=== PATIENT | female | born 1980 | race Caucasian/White ===

== ENCOUNTER 2018-02-11 00:49 | Emergency (ER) | payer BC, SELFPAY ==
[2018-02-11 00:51] VITALS: BP 124/88; PULSE 61; RESP 18; TEMP 36.6; O2SAT 98; BMI 23.8
--- NOTE | 2018-02-11 01:08 | EKG12_ITS ---
Test Reason : CP Blood Pressure : / mmHG Vent. Rate : 058 BPM Atrial Rate : 058 BPM P-R Int : 178 ms QRS Dur : 082 ms QT Int : 416 ms P-R-T Axes : 035 073 059 degrees QTc Int : 408 ms Sinus bradycardia Otherwise normal ECG Confirmed by JOHNNA OSORIO ([id number]), photograph editor GERRI MEJIA ([id number]) on 02/14/2018 10:19:21 AM Referred By: MORENA Confirmed By:JOHNNA OSORIO
--- NOTE | 2018-02-11 01:08 | RAD_ITS ---
STUDY: X-RAY CHEST REASON FOR EXAM: Female, 37 years old. Chest pain radiating to the back. Palpitations. TECHNIQUE: Single AP portable view of the chest. COMPARISON: 05/22/2015. FINDINGS: The lungs are clear and expanded. There is no demonstrated pleural abnormality. Normal size heart. Normal mediastinum and eloise. Normal visualized pulmonary arteries. Normal visualized aortic arch and descending thoracic aorta. Normal visualized thoracic spine. Normal visualized ribs, clavicles, and shoulders. There is no demonstrated abnormality of the visualized soft tissue structures of the upper abdomen. RAD/Chest 1 View (Portable) IMPRESSION: No active pulmonary disease. Electronically Signed: Chon Cote MD at 1:43 EDT Tel , Service support ,
[2018-02-11] MEDS: Aspirin 81 MG TAB.CHEW 324 MG PO (01:13)
[2018-02-11 01:32] LABS: Absolute Lymphocyte Count 3.43 X10^3/ul (0.83-4.51); Absolute Neutrophil Count 6.5 X10^3/uL (2.0-7.7); Basophil# 0.02 X10^3/uL; Basophil% 0.2 % (0-1); Eosinophil# 0.17 X10^3/uL; Eosinophils% 1.6 % (0-5); Hematocrit 40.1 % (37-47); Hemoglobin 13.4 g/dl (12.0-15.0); Lymphocyte # 3.43 X10^3/ul (4.0); Lymphocyte % 31.6 % (19-41); Mean Corp Hgb Conc 33.4 g/gl (32-36); Mean Corpuscular Hgb 28.6 pg (27.0-32.0); Mean Corpuscular Volume 85.5 fL (81-99); Mean Platelet Vol. 9.4 fl (6.2-12.0); Monocyte# 0.76 X10^3/uL; Neutrophil # 6.46 X10^3/uL (2.7-7.7); Neutrophil % 59.4 % (47-70); Platelet Count 434 K/mm3 (150-450); RBC Distribution Width CV 12.5 % (11.6-14.6); RBC Distribution Width SD 38.5 fl (35.1-43.9); Red Blood Count 4.69 M/mm3 (4.2-5.4); White Blood Count 10.9 K/mm3 (4.4-11.0)
[2018-02-11 01:36] LABS: POSITIVE COUNT NO; POSITIVE DIFFERENTIAL NO; POSITIVE MORPHOLOGY NO
[2018-02-11 01:42] LABS: AST(SGOT) 15 U/L (15-37); Alanine Aminotransfer ALT/SGPT 18 U/L (13-56); Albumin, Serum 3.4 g/dL (3.2-5.0); Alkaline Phosphatase 56 U/L (45-117); Anion Gap 5 (5-15); BUN 5 mg/dL (7-18); BUN/Creat Ratio 7.3 RATIO (10-20); Bilirubin, Direct < 0.05 mg/dL (0.00-0.30); Calcium,Total 8.2 mg/dL (8.5-10.1); Chloride 106 mmol/L (98-107); Creatinine, Serum 0.69 mg/dL (0.55-1.02); EST Glomerular Filtration Rate 102 mL/min (>60); Est Glom Filt Rate - Afr Amer 124 mL/min (>60); Estimated Creatinine Clearance 97.33 ml/min; Globulin 3.6 g/dL (2.2-4.2); Glucose 88 mg/dL (74-106); Lipase 178 U/L (73-393); Potassium 3.4 mmol/L (3.5-5.1); Sodium Level 139 mmol/L (136-145)
[2018-02-11 01:53] LABS: D-Dimer Quantitative (DVT/PE) 0.38 FEU/ug/m (0.27-0.49)
--- NOTE | 2018-02-11 02:03 | ED.VISSUMM ---
- ER Visit Summary Date of Service: 02/11/18 Chief Complaint: Right-sided chest pain History of Present Illness: The patient is a 37 F presenting with right-sided chest pain which began yesterday. She states the pain waxes and wanes but has been there consistently for the past day. She states it is worse with deep breathing and movements. She denies shortness of breath or cough. Denies fever. She has history of endometriosis, migraine, anxiety. She is not a smoker. No PE/DVT risk factors. No coronary artery disease risk factors. Physical Examination: Vitals are stable. Patient is afebrile. Alert no acute distress. HEENT exam is unremarkable. Neck is supple. Lungs are clear and equal bilaterally. Heart is regular rate and rhythm. Abdomen is soft right upper quadrant tenderness with no rebound or guarding Extremities are unremarkable. Skin is warm and dry. No focal neurologic deficit. Remainder of exam is unremarkable. Emergency Department Course and Treatment: Patient was given aspirin on arrival. EKG is sinus bradycardia rate of 58 with no acute ischemic changes. Chest x-ray shows no acute process. CBC, chemistries unremarkable. Liver lipase are normal. Troponin is negative. D-dimer negative. She was given toradol with improvement. She is given prescription for flexeril. Advised to follow-up with primary care physician. Advised return to ED if worsening complaints. Disposition: Discharge home Impression: Atypical chest pain This note was generated with [employer] dictation software. It may contain incorrect words, spelling, and punctuation that were not noted in review of the chart prior to signing ED Disposition - Plan for ED Patient: Chief Complaint: Chest Pain Instructions: ED Chest Pain Atypical Unkn Cause Prescriptions: Cyclobenzaprine [Flexeril] 10 mg PO TID PRN #20 tablet PRN Reason: Muscle Spasm Referrals: Bianca Dooley MD [Primary Care Provider] -
[2018-02-11] MEDS: Ketorolac 30 MG/ML Syringe IV (02:16)
--- NOTE | 2018-02-11 02:36 | ED.DEP ---
ED Disposition - Plan for ED Patient: Chief Complaint: Chest Pain Instructions: ED Chest Pain Atypical Unkn Cause Prescriptions: Cyclobenzaprine [Flexeril] 10 mg PO TID PRN #20 tablet PRN Reason: Muscle Spasm Referrals: Bianca Dooley MD [Primary Care Provider] -
[2018-02-11 02:43] VITALS: BP 107/75; PULSE 71; RESP 16; O2SAT 98
== END 2018-02-11 02:44 | disposition home or self-care (01) ==
PROVIDERS: Emergency Provider Emergency Medicine; Family Provider Internal Medicine; PCP Internal Medicine
DX: R07.89 Other chest pain (principal); R00.1 Bradycardia, unspecified; G43.909 Migraine, unspecified, not intractable, without status migrainosus; F41.9 Anxiety disorder, unspecified; Z79.899 Other long term (current) drug therapy
CPT/HCPCS: 71045; 80048; 80076; 83690; 84484; 85025; 85379; 93005; 96374; 99285; A4216

== ENCOUNTER 2018-02-15 14:36 | Emergency (ER) | payer BC, SELFPAY ==
[2018-02-15 14:36] VITALS: BP 123/82; PULSE 63; RESP 16; TEMP 36.6; O2SAT 98; BMI 23.0
[2018-02-15 16:14] VITALS: PULSE 61; O2SAT 98
--- NOTE | 2018-02-15 16:33 | ED.DCSUM_ITS ---
- ER Visit Summary Date of Service: 02/15/18 Chief Complaint: Back pain History of Present Illness: The patient is a 37 F with back pain for 1 week. 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 She had a cardiac workup about a week ago for this. No fever or chills. The pain does radiate into the chest. No shortness of breath. No PE risk factors. Physical Examination: She does appear in some distress Moist mucous membranes, no obvious facial deformity No C-spine tenderness supple neck. Regular rate and rhythm without any obvious murmurs Clear lungs bilaterally speaking in full sentences without any obvious respiratory distress She has tenderness over the trapezius and paraspinal right-sided thoracic muscles. She does have objective trigger points in that region and her muscles are quite tight. Abdomen soft and nontender no guarding or rebound Moves all extremities without any difficulty or pain. Skin does not show any obvious rashes or lesions, no trauma. Alert oriented ?3 with no gross focal deficit Emergency Department Course and Treatment: She has mechanical back pain it is in the muscles and quite easily reproducible. I will give her trigger point injections. She will be discharged with muscle relaxants and analgesics. Disposition: Discharge stable condition Impression: Thoracic muscle strain This note was generated with [employer] dictation software. It may contain incorrect words, spelling, and punctuation that were not noted in review of the chart prior to signing ED Disposition - Plan for ED Patient: Disposition: Home or Assisted Living Chief Complaint: Chest Other Instructions: ED Sprain Thoracic Spine Prescriptions: Oxycodone HCl/Acetaminophen [Percocet 5/325] 1 tab PO Q6H PRN PRN 5 Days #12 tab PRN Reason: Pain Diazepam [Valium] 5 mg PO BID 5 Days #10 tab Referrals: Bianca Dooley MD [Primary Care Provider] -
== END 2018-02-15 16:59 | disposition home or self-care (01) ==
PROVIDERS: Emergency Provider Emergency Medicine; Family Provider Internal Medicine; PCP Internal Medicine
DX: S29.019A Strain of muscle and tendon of unspecified wall of thorax, initial encounter (principal); X50.9XXA Other and unspecified overexertion or strenuous movements or postures, initial encounter; Y93.F2 Activity, caregiving, lifting; Y92.238 Other place in hospital as the place of occurrence of the external cause; Y99.9 Unspecified external cause status
CPT/HCPCS: 20553; 99283

== ENCOUNTER 2018-04-27 14:31 | Emergency (ER) | payer BC, SELFPAY ==
[2018-04-27 14:32] VITALS: BP 128/83; PULSE 68; RESP 16; TEMP 36.6; O2SAT 99; BMI 22.3
--- NOTE | 2018-04-27 15:10 | EKG12_ITS ---
Test Reason : VISION CHANGES Blood Pressure : / mmHG Vent. Rate : 072 BPM Atrial Rate : 072 BPM P-R Int : 212 ms QRS Dur : 088 ms QT Int : 424 ms P-R-T Axes : 067 086 067 degrees QTc Int : 464 ms Sinus rhythm with 1st degree A-V block Otherwise normal ECG Confirmed by JOHNNA OSORIO ([id number]), web editor MARIE LIVE ([id number]) on 05/03/2018 1:40:58 PM Referred By: CELESTINO Confirmed By:JOHNNA OSORIO
--- NOTE | 2018-04-27 15:10 | NURSING ---
DR MORRIS PAGED
--- NOTE | 2018-04-27 15:18 | ED.VISSUMM ---
- ER Visit Summary Date of Service: 04/27/18 Chief Complaint: Headache History of Present Illness: The patient is a 37 F patient presents with increasing right frontal headache starting at 1 PM today while working upstairs. Complains of flashing lights, aura sensations. Blurry vision. No fevers. Patient states history of migraines, however's states never had vision issues only phonophobia. Over the past 4 months has noted vision changes with aura. She reports sensations left upper quadrant of aura with blurry vision which would resolve with her headaches. 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 There has been no head injuries. 2 days ago reports no headache however which she explains right hemianopsia with blurriness vision right quadrants of both eyes lasting 2 hours, with those symptoms she had expressive dysphasia with difficulty getting words out lasting approximately 1 hour. Reports symptoms completely resolved. Today at work had her typical right frontal headache with oral, brief expressive dysphasia. Currently complains of photophobia. No nausea or vomiting. She is typical migraine symptoms will resolve with Fioricet. Patient spoke with nurse practitioner who works with neurology team about symptoms yesterday, was made an appointment for May 11 of this month. Was told if symptoms return needs to come down to the emergency department. Denies any family history of clotting disorders. Physical Examination: General: Alert and oriented ?3, no acute distress HEENT: Normocephalic, atraumatic. Moist mucosa membranes. Pupils equal and reactive to light, extra ocular muscles intact. Visual field examination, left eye had blurriness in the left upper and left lower quadrants. Right eye with blurry vision right upper quadrants. Denies loss of vision. Neck: supple, nontender. No meningismus. Cardiovascular: Regular rate and rhythm, no murmurs Respiratory: Normal breath sounds, symmetric, no distress Abdomen: Soft, nontender, nondistended Extremities: Nontender, no edema, pulses intact ?4. Neurological: [facility] would be a one do her visual field deficits. Test Results: White count 12.8. He was 12.8. Creatinine 0.62. Troponin negative. MRI brain with and without contrast pansinusitis, no intracranial process. Emergency Department Course and Treatment: Patient reports acute onset of recurrent symptoms. This time started at 1 PM. Differentials include complex migraine, versus TIA symptoms. Recurrent symptoms and age, I did speak with neurologist Dr. Solano at 1510, states if able to go ahead and obtain MRI of the brain with and without contrast in the emergency department. If negative, we will plan on placing her on Topamax 25 mg twice daily for concerns of complex migraines with outpatient follow-up. Discussed with patient and radiology department,. Patient was treated with Reglan and Benadryl, there is moderate improvement symptoms. Still had headache symptoms. MRI results eventually returned turn, noted pansinusitis. She does complain of sinus symptoms for the past week, however these headaches are typical of her migraines, or other symptoms were new. Sinusitis is not causing her symptoms. More concerns of complex migraines. She appears had improvement of Fioricet which was given along with started on Topamax twice a day per recommendations of neurology. She will monitor symptoms and follow-up as an outpatient. All questions were answered. Treatment Plan: [] Disposition: Discharge Impression: 1. Complex migraine This note was generated with [employer] dictation software. It may contain incorrect words, spelling, and punctuation that were not noted in review of the chart prior to signing ED Disposition - Plan for ED Patient: Disposition: Home or Assisted Living Chief Complaint: Headache Diagnosis: Complex migraine Instructions: ED Headache Migraine Prescriptions: Acetaminophen/Butalbital/Caffe [Fioricet] 1 tablet PO Q4H PRN PRN #20 tablet PRN Reason: Headache Topiramate [Topamax] 25 mg PO BID #60 tablet Referrals: NOT,DEFINED [NON-STAFF] - Pete Solano MD [STAFF PHYSICIAN] - Keep Diego appointment
[2018-04-27 15:42] LABS: Absolute Lymphocyte Count 2.53 X10^3/ul (0.83-4.51); Absolute Neutrophil Count 9.3 X10^3/uL (2.0-7.7); Basophil# 0.01 X10^3/uL; Basophil% 0.1 % (0-1); Eosinophil# 0.12 X10^3/uL; Eosinophils% 0.9 % (0-5); Hematocrit 38.8 % (37-47); Hemoglobin 12.8 g/dl (12.0-15.0); Lymphocyte # 2.53 X10^3/ul (4.0); Lymphocyte % 19.8 % (19-41); Mean Corpuscular Hgb 28.3 pg (27.0-32.0); Mean Corpuscular Volume 85.7 fL (81-99); Mean Platelet Vol. 9.3 fl (6.2-12.0); Monocyte# 0.75 X10^3/uL; Monocyte% 5.9 % (0-10); Neutrophil # 9.32 X10^3/uL (2.7-7.7); Neutrophil % 73.1 % (47-70); Platelet Count 436 K/mm3 (150-450); RBC Distribution Width CV 12.6 % (11.6-14.6); RBC Distribution Width SD 39.6 fl (35.1-43.9); Red Blood Count 4.53 M/mm3 (4.2-5.4); White Blood Count 12.8 K/mm3 (4.4-11.0)
[2018-04-27 15:58] LABS: Prothrombin Time (Protime)PT. 13.4 SECONDS (11.7-14.9)
[2018-04-27 15:59] LABS: Partial Thromboplast Time 32.1 Seconds (24.1-36.2)
[2018-04-27 16:02] LABS: Anion Gap 7 (5-15); BUN 3 mg/dL (7-18); BUN/Creat Ratio 4.8 RATIO (10-20); Calcium,Total 8.7 mg/dL (8.5-10.1); Chloride 104 mmol/L (98-107); Creatinine, Serum 0.62 mg/dL (0.55-1.02); EST Glomerular Filtration Rate 116 mL/min (>60); Est Glom Filt Rate - Afr Amer 140 mL/min (>60); Estimated Creatinine Clearance 108.32 ml/min; Glucose 89 mg/dL (74-106); Potassium 3.4 mmol/L (3.5-5.1); Sodium Level 140 mmol/L (136-145)
[2018-04-27 16:09] LABS: POSITIVE COUNT NO; POSITIVE DIFFERENTIAL NO
[2018-04-27] MEDS: DiphenhydrAMINE 50 MG/ML Syringe 25 MG IV (16:23)
[2018-04-27] MEDS: 0.9% Normal Saline 1,000 ML 999 ML IV (16:23)
[2018-04-27] MEDS: Metoclopramide 10 MG/2 ML Vial IV (16:24)
[2018-04-27 16:28] VITALS: BP 116/80; PULSE 69; RESP 12; O2SAT 100
[2018-04-27 16:30] LABS: POSITIVE MORPHOLOGY YES
[2018-04-27 17:16] VITALS: BP 120/71; PULSE 61; RESP 15; O2SAT 98
[2018-04-27 18:30] VITALS: BP 124/77; PULSE 70; RESP 16; O2SAT 96
[2018-04-27 19:22] VITALS: PULSE 77; RESP 16; O2SAT 98
[2018-04-27] MEDS: Topiramate 25 MG Tablet PO (19:34)
[2018-04-27] MEDS: Acetaminophen/Butalbital/Caffe 1 Tablet PO (19:35)
[2018-04-27 19:37] VITALS: BP 107/73; PULSE 76; PULSE 77; RESP 14; O2SAT 99
[2018-04-28 14:33] LABS: Pathologist Review Reviewed
== END 2018-04-27 19:42 | disposition home or self-care (01) ==
PROVIDERS: Emergency Provider Emergency Medicine
DX: G43.109 Migraine with aura, not intractable, without status migrainosus (principal); J32.4 Chronic pansinusitis; R47.02 Dysphasia; Z79.899 Other long term (current) drug therapy
CPT/HCPCS: 70553; 80048; 84484; 85025; 85610; 85730; 93005; 96361; 96374; 96375; 99285; A9585; J7030; A4216

== ENCOUNTER → 2018-10-20 13:33 | Outpatient (CLI) | payer OTHER, SELFPAY ==
[2018-10-26 12:24] LABS: HPV Reflexed? NOT INDICATED
== END ==
PROVIDERS: Visit Provider Obstetrics & Gynecology
DX: Z12.4 Encounter for screening for malignant neoplasm of cervix (principal)
CPT/HCPCS: 88175; G0145

== ENCOUNTER → 2018-10-31 14:09 | Outpatient (CLI) | payer OTHER, SELFPAY ==
[2018-10-31 15:29] LABS: T4 Free Direct 0.81 ng/dL (0.76-1.46); Thyroid Stim Hormone (TSH) 1.66 uIU/mL (0.358-3.74)
== END ==
PROVIDERS: Family Provider Family Medicine; PCP Family Medicine; Referring Provider Family Medicine; Visit Provider Family Medicine
DX: E03.9 Hypothyroidism, unspecified (principal); Z13.21 Encounter for screening for nutritional disorder
CPT/HCPCS: 36415; 82306; 84439; 84443

== ENCOUNTER → 2019-01-27 15:57 | Outpatient (CLI) | payer OTHER, SELFPAY ==
[2019-01-27 07:56] LABS: Hemoglobin A1c 4.7 % (4.2-6.3)
[2019-01-27 08:47] LABS: Insulin 13.1 mU/L (2.6-37.6); Progesterone Level 0.35 ng/mL (See Comment); Vitamin D,25 Hydroxy 49.8 ng/mL (29.95-100.01)
[2019-01-27 11:42] LABS: Estradiol 701.3 pg/mL; Free T3 2.8 pg/mL (2.18-3.98); Glucose 93 mg/dL (74-106); T4 Free Direct 0.92 ng/dL (0.76-1.46); Thyroid Stim Hormone (TSH) 1.79 uIU/mL (0.358-3.74)
--- NOTE | 2019-01-27 15:59 | US_ITS ---
STUDY: ULTRASOUND OF THE FEMALE PELVIS - COMPLETE REASON FOR EXAM: Female, 38 years old. Right pelvic pain LMP: TECHNIQUE: Transabdominal and transvaginal TECHNICAL QUALITY: Adequate. COMPARISON: None FINDINGS: The uterus is anteverted and is in a midline position. The uterus measures 9.4 x 4.2 cm. Normal uterine cervix. The endometrium measures 5.4 mm in thickness, and is hyperechoic. There is no demonstrated endometrial mass. There is a fibroid measuring 1.2 x 1.1 x 0.9 cm.. I.U.D. - there is an IUD noted within the endometrial canal at the uterine fundus. The right ovary is visualized. The right ovary measures 5 x 4.6 x 3.2 cm. There are multiple ovarian cysts the largest is septated measuring measuring 3.5 x 3.3 x 3.6 cm. . There is normal arterial and normal venous vascularity. The left ovary is nonvisualized status post hysterectomy. There is a small amount of free fluid in the cul-de-sac. US/Pelvic (Non ) IMPRESSION: Multiple small right ovarian cysts the largest of which is septated measuring 3.5 x 3.3 x 3.6 cm with small amount of fluid in the cul-de-sac possibly due to ovulation Small intrauterine fibroid Electronically Signed: Anand Rome MD at 16:27 EDT , Service support ,
--- NOTE | 2019-01-27 16:13 | US_ITS ---
STUDY: ULTRASOUND OF THE FEMALE PELVIS - COMPLETE REASON FOR EXAM: Female, 38 years old. Right pelvic pain LMP: TECHNIQUE: Transabdominal and transvaginal TECHNICAL QUALITY: Adequate. COMPARISON: None FINDINGS: The uterus is anteverted and is in a midline position. The uterus measures 9.4 x 4.2 cm. Normal uterine cervix. The endometrium measures 5.4 mm in thickness, and is hyperechoic. There is no demonstrated endometrial mass. There is a fibroid measuring 1.2 x 1.1 x 0.9 cm.. I.U.D. - there is an IUD noted within the endometrial canal at the uterine fundus. The right ovary is visualized. The right ovary measures 5 x 4.6 x 3.2 cm. There are multiple ovarian cysts the largest is septated measuring measuring 3.5 x 3.3 x 3.6 cm. . There is normal arterial and normal venous vascularity. The left ovary is nonvisualized status post hysterectomy. There is a small amount of free fluid in the cul-de-sac. US/Transvaginal Non- IMPRESSION: Multiple small right ovarian cysts the largest of which is septated measuring 3.5 x 3.3 x 3.6 cm with small amount of fluid in the cul-de-sac possibly due to ovulation Small intrauterine fibroid Electronically Signed: Anand Rome MD at 16:27 EDT , Service support ,
[2019-01-28 05:06] LABS: DHEA Sulfate 63.5 ug/dL (57.3-279.2); Thyroid Peroxidase AB 18 IU/mL (0-34)
[2019-01-29 13:30] LABS: Sex Hormone-binding Globulin 149.2 nmol/L (24.6-122.0)
== END ==
PROVIDERS: Family Provider Family Medicine; PCP Family Medicine; Referring Provider Obstetrics & Gynecology; Visit Provider Obstetrics & Gynecology
DX: R10.2 Pelvic and perineal pain (principal); E55.9 Vitamin D deficiency, unspecified
CPT/HCPCS: 36415; 76830; 76856; 82306; 82533; 82627; 82670; 82947; 83036; 83525; 84144; 84270; 84403; 84439; 84443; 84481; 86376; 82626

== ENCOUNTER → 2019-02-09 12:52 | Outpatient (CLI) | payer OTHER, SELFPAY ==
[2019-02-09 13:53] LABS: AST(SGOT) 17 U/L (15-37); Alanine Aminotransfer ALT/SGPT 21 U/L (13-56); Albumin, Serum 3.8 g/dL (3.2-5.0); Alkaline Phosphatase 72 U/L (45-117); Anion Gap 4 (5-15); BUN 5 mg/dL (7-18); BUN/Creat Ratio 7.9 RATIO (10-20); Calcium,Total 9.1 mg/dL (8.5-10.1); Chloride 105 mmol/L (98-107); Creatinine, Serum 0.64 mg/dL (0.55-1.02); EST Glomerular Filtration Rate 112 mL/min (>60); Est Glom Filt Rate - Afr Amer 135 mL/min (>60); Estradiol 112.5 pg/mL; Globulin 3.8 g/dL (2.2-4.2); Glucose 85 mg/dL (74-106); Protein, Total 7.6 g/dL (6.4-8.2); Sodium Level 138 mmol/L (136-145)
--- NOTE | 2019-02-09 13:56 | CT_ITS ---
STUDY: CT ABDOMEN AND PELVIS WITH CONTRAST REASON FOR EXAM: Female, 38 years old. Right ovarian cyst. RADIATION DOSAGE (If Supplied By Facility): CTDIvol = ( 9.75 ) mGy, DLP = ( 351.51 ) mGycm TECHNIQUE: Transaxial images were obtained from the dome of the diaphragm to the symphysis pubis without oral contrast. 75 IV Isovue 370 was administered. Sagittal and coronal images were reconstructed. Individualized dose optimization techniques were used for this CT. COMPARISON: Ultrasound January 27, 2019. CT February 13, 2016. FINDINGS: The visualized lung bases are unremarkable. The visualized portions of the heart are within normal limits. There is hepatomegaly with diffuse hepatic enlargement. There are hypodensities compatible with small cysts in the liver . Normal gallbladder and extrahepatic biliary system. Normal spleen. Normal pancreas. Normal bilateral adrenal glands. Normal right kidney. Normal left kidney. Normal visualized stomach. Normal small intestine. Normal colon. The appendix is visualized and appears normal. Normal abdominal aorta. Normal inferior vena cava. Normal retroperitoneum. Normal urinary bladder. There is IUD in the uterus. There is 3.5 cm right adnexal cyst. There is a small umbilical hernia containing fat. Normal osseous structures. CT/Abdomen/Pelvis WITH Contrast IMPRESSION: Right adnexal cyst. Hepatomegaly with small cysts Electronically Signed: Alexey Greene MD at 8:26 EDT , Service support ,
== END ==
PROVIDERS: Family Provider Family Medicine; PCP Family Medicine; Referring Provider Obstetrics & Gynecology; Visit Provider Obstetrics & Gynecology
DX: N83.201 Unspecified ovarian cyst, right side (principal); N93.8 Other specified abnormal uterine and vaginal bleeding
CPT/HCPCS: 74177; 80053; 82670; Q9967

== ENCOUNTER → 2019-02-14 11:49 | Outpatient (CLI) | payer OTHER, SELFPAY ==
[2019-02-14 14:15] LABS: Ferritin 34 ng/mL (8-252); GGTP 26 U/L (5-55); Iron 87 ug/dL (50-170); LDH 221 U/L (84-246)
[2019-02-14 15:23] LABS: Erythrocyte Sedimentation Rate 6 mm/hr (0-20)
[2019-02-14 15:25] LABS: Absolute Lymphocyte Count 2.22 X10^3/ul (0.83-4.51); Absolute Neutrophil Count 4.9 X10^3/uL (2.0-7.7); Basophil# 0.01 X10^3/uL; Basophil% 0.1 % (0-1); Eosinophil# 0.07 X10^3/uL; Eosinophils% 0.9 % (0-5); Hematocrit 39.4 % (37-47); Hemoglobin 12.9 g/dl (12.0-15.0); Lymphocyte # 2.22 X10^3/ul (4.0); Lymphocyte % 28.7 % (19-41); Mean Corp Hgb Conc 32.7 g/gl (32-36); Mean Corpuscular Hgb 28.2 pg (27.0-32.0); Mean Corpuscular Volume 86.2 fL (81-99); Monocyte# 0.51 X10^3/uL; Monocyte% 6.6 % (0-10); Neutrophil # 4.91 X10^3/uL (2.7-7.7); Neutrophil % 63.6 % (47-70); POSITIVE COUNT NO; POSITIVE DIFFERENTIAL NO; POSITIVE MORPHOLOGY NO; Platelet Count 427 K/mm3 (150-450); RBC Distribution Width CV 12.4 % (11.6-14.6); RBC Distribution Width SD 39.3 fl (35.1-43.9); Red Blood Count 4.57 M/mm3 (4.2-5.4); White Blood Count 7.7 K/mm3 (4.4-11.0)
== END ==
PROVIDERS: Family Provider Family Medicine; PCP Family Medicine; Visit Provider Family Medicine
DX: R16.0 Hepatomegaly, not elsewhere classified (principal)
CPT/HCPCS: 36415; 82728; 82977; 83540; 83615; 85025; 85652

== ENCOUNTER → 2019-02-18 09:54 | Outpatient (CLI) | payer OTHER, SELFPAY ==
--- NOTE | 2019-02-18 09:56 | BI_ITS ---
MAMMOGRAPHY - BILATERAL SCREENING REASON FOR EXAM: Female, 38 years old. Routine annual screening examination. PERTINENT HISTORY: Grandmother with breast cancer. Aunt with breast cancer. Bilateral breast reduction surgery. TECHNIQUE: Digital bilateral breast micha (3D mammographic acquisition) in the CC and MLO projections. 2-D mediolateral oblique (MLO) and craniocaudad (CC) views of both breasts were obtained. CAD: Full Field Digital Mammography with Computer Added Detection was performed. COMPARISON: Comparison is made with prior study dated December 16, 2016 and March 16, 2016. FINDINGS: Breast Composition: The breasts are extremely dense, which lowers the sensitivity of mammography. There are no dominant masses or suspicious calcifications. No other significant abnormalities are identified. There has been no significant change since the prior study. BI/SCREEN MAMM (CAD) W/MICHA BILAT IMPRESSION: Stable bilateral screening mammogram. Yearly follow-up mammogram recommended. (A) ASSESSMENT CATEGORY: BIRADS Category 1: Negative. A letter regarding these results will be sent to the patient by the facility within 30 days. Approximately 10% of breast cancers are not detected by mammography. A normal mammogram should not delay biopsy of a clinically suspicious abnormality. [id number] Electronically Signed: Bakari Gongora, at 12:45 EDT , Service support ,
== END ==
PROVIDERS: Family Provider Family Medicine; PCP Family Medicine; Referring Provider Obstetrics & Gynecology; Visit Provider Obstetrics & Gynecology
DX: Z12.31 Encounter for screening mammogram for malignant neoplasm of breast (principal)
CPT/HCPCS: 77063; 77067

== ENCOUNTER 2019-03-27 08:58 | Day surgery (SDC) | payer OTHER, SELFPAY ==
[2019-03-06 08:44] VITALS: BMI 22.3
--- NOTE | 2019-03-07 01:56 | HP_ITS ---
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 Is patient in pain?: No Allergies tramadol [From Ultram] Adverse Reaction (Intermediate, Verified 03/06/19 08:43) hallucinations hydrocodone bitartrate [From Vicodin] Adverse Reaction (Verified 03/06/19 08:43) Vomiting Medications alprazolam 0.25 mg tablet 0.25 mg PO BID-TID PRN 04/22/18 [History Confirmed 03/06/19] lactobacillus combination no.4 3 billion cell capsule 3,000 mmu cells PO DAILY 04/22/18 [History Confirmed 03/06/19] multivitamin capsule 1 cap PO DAILY 04/22/18 [History Confirmed 03/06/19] Acetaminophen/Butalbital/Caffe [Fioricet] 1 tab PO Q4H PRN PRN #20 tab 04/27/18 [Rx Confirmed 03/06/19] Topiramate [Topamax] 25 mg PO BID #60 tab 04/27/18 [Rx Confirmed 03/06/19] Is last menstrual period known: No Post menopausal: No Patient : No PFSH Medical History Back pain (Acute) Chest pain (Acute) Fatigue (Acute) Hay fever (Acute) Migraines (Acute) Peritonitis (Acute) Thyroid disease (Acute) Surgical History (Updated 03/06/19 @ 08:40 by Shannon Saba) H/O oophorectomy (Acute) History of bilateral breast reduction surgery (Acute ~2017) History of colonoscopy (Acute ~2008) History of dilation and curettage (Acute ~2014) History of loop electrical excision procedure (LEEP) (Acute ~2013) History of ovarian cystectomy (Acute) Family History (Updated 03/06/19 @ 08:41 by Shannon Saba) Daughter Asthma Father Hypertension Mother Hypertension Thyroid disorder Diabetes Grandmother Breast cancer Cancer omentum Osteoporosis Social History (Updated 03/07/19 @ 13:56 by Vasu Peralta MD) Smoking Status: Never smoker HPI HPI HPI: CHARLENE CARLIN, is a 38 F who presents to the office today for HPI HPI Surgical H&P: Yes HPI: CHARLENE CARLIN, is a 38 F who presents to the office today for consult for appendectomy. Patient is having right lower quadrant pain. She is going for right nephrectomy by Dr. Gupta as well as hysterectomy. She is unsure if her appendix is also causing issues at the time so they would like an appendectomy done at the same time. ROS General General: No weight change, appetite, fatigue, colon cancer, breast cancer or weakness HEENT HEENT: No difficulty swallowing, eye injury, eye surgery, swollen glands or hoarseness Endo Endocrine: Yes thyroid disease; no diabetes mellitus, thyroid cancer, Hair loss, heat intolerance or cold intolerance Cardio Cardiovascular: No murmur, pacemaker, heart disease, atrial fibrillation, high blood pressure, heart attack, heart stent, palpitations, shortness of breat with exertion or chest pain Psych Psychiatric: Yes anxiety; no depression or hearing voices Resp Respiratory: No shortness of breath, No sleep apnea, No cough, No COPD, No asthma, No emphysema, No wheezing Gastro Gastrointestinal: Yes abdominal pain, Yes nausea or vomiting, Yes diarrhea, Yes constipation, No blood in stool, No acid reflux, Yes hemorrhoids, Yes ulcers, No gallbladder problem, No black,tarry stools Byron Hematologic: No blood thinners, No blood disorders, No bleeding, No anemia, No blood clots Neuro Neurologic: No weakness Exam Const General: cooperative Orientation: alert, oriented x3 Resp Effort & Inspection: normal respiratory effort Auscultation: clear to auscultation bilaterally Cardio Rate: regular rate Rhythm: regular rhythm Heart Sounds: no murmurs GI Inspection: non-distended Palpation: soft, nontender Assessment & Plan Problems 1. RLQ abdominal pain R10.31 Plan The patient is having right lower quadrant pain. I was requested to see the patient for appendectomy at the same time as hysterectomy right oophorectomy. The patient is having chronic right lower quadrant pain and they would like appendicitis to be removed from his differential. I explained laparoscopic appendectomy to the patient in detail. I explained the risks including but not limited to bleeding, infection, injury to surrounding organs such as the bowels. Patient understands risks and would like to proceed. Vasu Peralta MD Pager: [facility] [address] [place] [address], [address] [place] [address] Office: Coding Level of Care Code Off vis,new,level 3 Diagnoses RLQ abdominal pain R10.31 03/07/19 1356 <Electronically signed by Vasu kenney MD> Date _ Vasu Peralta MD I have re-examined the patient. There are no clinical changes since date of exam.
--- NOTE | 2019-03-26 10:44 | PCM.HP.BLA ---
History and Physical Date of Admission: 03/27/19 Surgical History and Physical Michelle Garcai, a 38 year old female 2 0 0 0 3, presents for RAVH/RSO per ELIZABETH; Robotic appendectomy per Fabian on March 27, 2019. -- Chronic RLQ Pain; Severe Endometriosis -- She has been having pain on the Rt side, intermittent N/v, and pain with IC that has been worsening. Known severe endometriosis. Rt sided pain, not feeling well which began years ago. Michelle claims it started gradual. It occurs all the time. It is located in the Rt sided pain. Michelle characterizes it to be to the back. Michelle characterizes the quality ache, pulling, sharp with IC. Severity is worsening; Associated signs and symptoms are pain with IC. Additional comments are: Spotting with IC. Additional comments are: has Mirena in place; similar pain on left before ovary was removed years ago; done having children; endometriosis dx by Laparoscopy in 2014. Additional comments are: recent CT [place]. MEDICATIONS HISTORY: Current medications prescribed by our practice are: 1. muhmmjqbeg-osszdikajzjbe-zldhxysr 50 mg-325 mg-40 mg tablet, 1 po q 4 hours PRN 2. Valtrex 500 mg tablet, 3 PO PRN 3. Xanax 0.5 mg tablet, One pill by mouth three times a day PRN 4. Zofran 4 mg tablet, one tab PO every 6 hours as needed for nausea Patient is also takin. multivitamin capsule 2. Mirena 20 mcg/24 hr (5 years) intrauterine device, inserted 07/01/17 3. Vitamin D3 5,000 unit tablet, As Directed 97591 IU weekly ALLERGIES: NKDA, Vicodin, Vomiting, Vicodin, Severe nausea & vomiting, Tramadol, Hallucinations, Augmentin and Hives and/or rash Infections - Chicken pox Illnesses - hypothyroid, IBS, migraines, TMJ Accidents - no injuries of consequence Hospitalizations - see surgery and Ovarian Cyst infection x5 days hospitalized anxiety; Review of Systems: GENERAL - Denies fever, or chills SKIN - Denies skin changes EYES - Denies visual changes EARS - Denies difficulty hearing NOSE - Denies nasal congestion or bleeding MOUTH - Denies sore throat or difficulty swallowing NECK - Denies pain or swelling RESPIRATORY - Denies shortness of breath or wheezing CARDIOVASCULAR - Denies palpitations or chest pain GASTROINTESTINAL - Denies nausea, vomiting, diarrhea, constipation GENITOURINARY - Denies dysuria, frequency of urination, incontinence of urine MUSCULOSKELETAL - Denies joint or muscle pain NEUROLOGICAL - Denies localized numbness or weakness PSYCHIATRIC - Denies depression or anxiety ENDOCRINE - Denies heat or cold intolerance, weight loss or gain HEMATO-IMMUNOLOGIC - Denies excesive bleeding with cuts SOCIAL HISTORY: Alcohol Use - denies drinking Smoking - denies smoking Diet - balanced Diet Lifestyle - moderate stress lifestyle Exercise - regular and very active Seat Belt Use - always 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 Mother: Fibromyalgia. Father: High Cholesterol. Brother: Super vent. Tach. Paternal Grandmother: breast cancer. Maternal Aunt: Breast cancer. MENSTRUAL HISTORY: LMP Known?- DefiniteAmount/Duration - spotting x 1 day, Regularity - Irregular, Frequency - variable days, LMP - 12/29/18, Age Onset Menarche - 15 PAST PREGNANCIES: Total Pregnancies - 2; Full Term Pregnancies - 2; Premature - 0; Abortions, Induced - 0; Abortions, Spontaneous - 0; Ectopics - 0; Multiple Births - 0; Living Children - 3 SURGICAL HISTORY: 1. 09/04/2008 Laperscopic Exploratory, removal L ovary 2. 05/19/2018 bilateral breast reduction 3. 11/08/2012 robotic laparoscopy/cystectomy ; Shu Hanna MD - 4. 08/03/2014 LEEP ; Shu Hanna MD 5. 08/01/2015 hysteroscopy, D and C ; Shu Hanna MD PHYSICAL EXAM BP- 118/72 Sitting, Left arm, regular cuff Weight- 137.91598 lbs Height- 64 inch BMI:23.57 CONSTITUTIONAL - NAD, well nourished, and well developed SKIN - No rash, lesions, or ulcers HEENT - Normocephalic, PERRLA, EOMI NECK - No nodes, no nuchal rigidity and thyroid normal size and texture LYMPH NODES - Palpation of lymph nodes in neck and groins within normal limits LUNGS - CTA x2 without wheezes, crackles or rales CARDIAC - Regular rate and rhythm without rubs, murmurs, or gallops ABDOMEN - Without hepatosplenomegaly, distention, masses, rebound, or guarding; normal bowel sounds; no hernias EXTREMITIES - No edema or calf tenderness NEUROLOGICAL - Cranial nerves II-XII grossly intact PSYCHIATRIC - A and O to time, place, person, mood and affect External Genitial Vagina - non-tender without lesions Urethra/Urethral Meatus - non-tender Bladder - non-tender Vagina - vaginal rey are pink and moist without loss of rugae and no evidence of atropy Cervix - without cervical motion tenderness and has normal size and features without evident lesions and cervix high in vagina Uterus - 8cm, anterior and fully mobile Adnexa - clear without masses or tenderness ASSESSMENT/PLAN: 1. Abdominal Pain,RLQ, Dyspareunia, Endometriosis Nos, Pelvic Pain and Unspec Endometriosis continues to worsen and now not adequately controlled with Mirena IUD. Discussed options including Lupron/Orilissa vs proceeding with RAVH/RSO/APPY and pt desires the surgery. Discussed RBAs including need for ongoing HRT, ovarian remnant syndrome, and possible need for laparotomy. All questions answered.
[2019-03-27] VITALS (11 sets, daily range): BP systolic 92–113; BP diastolic 48–71; PULSE 47–68; RESP 16–18; TEMP 36.2–37.1; O2SAT 94–100; BMI 22.6
[2019-03-27 09:22] LABS: Internal QC Validated? YES +Cl - CLEAR BKGD
[2019-03-27 09:23] LABS: Pregnancy, Urine Negative Negative
[2019-03-27 09:47] LABS: International Normalized Ratio 1.1; Prothrombin Time (Protime)PT. 13.8 SECONDS (11.7-14.9)
[2019-03-27 09:48] LABS: Partial Thromboplast Time 29.1 Seconds (24.1-36.2)
[2019-03-27 09:50] LABS: Creatinine, Serum 0.68 mg/dL (0.55-1.02); EST Glomerular Filtration Rate 104 mL/min (>60); Est Glom Filt Rate - Afr Amer 125 mL/min (>60); Estimated Creatinine Clearance 97.81 ml/min
--- NOTE | 2019-03-27 11:10 | HYST_PTH ---
PATIENT: CHARLENE CARLIN LOC: [facility] [place] U[place][id number] AGE/SX: 38/F ROOM: RE03/27/[address]: Dr. Missael Gupta MD : 1980 BED: DIS: 03/28/2019 SPEC #: [id number] RECD: 03/27/19 16:45 STATUS: THOMAS WEN #: [id number] HERBERT: 03/27/19 11:[address]: Missael Gupta DEPT: SURGICAL PATHOLOGY RECD BY: Kulwinder Hernandez ENTERED: 03/28/19 11:49 SP TYPE: HYSTERECT OTHR DR: Dr. Shawn Shabazz MD Tissues: A - Uterus, NOS B - APPENDIX (INCIDENTAL) Procedures: Surgery Specimen Level II Surgery Specimen Level V HEADER OPERATION: Robotic-assisted vaginal hysterectomy, right salpingo-oophorectomy PRE-OP DIAGNOSIS: Abdominal pain RLQ, dyspareunia, endometriosis, pelvic pain TISSUE SUBMITTED: A - Uterus, cervix, right fallopian tube and right ovary, B - Appendix MICROSCOPIC DIAGNOSIS A. Uterus, cervix, right fallopian tube and right ovary, vaginal hysterectomy, bilateral salpingectomy and right oophorectomy: Cervix - mild chronic cystic cervicitis. Endometrium - consistent with exogenous hormone effect. Myometrium - intramural leiomyoma (1 cm in greatest dimension). - Focal adenomyosis. Bilateral fallopian tubes - no pathologic diagnosis. Right ovary - physiologic follicular cysts. B. Appendix, appendectomy: Appendix, no pathologic diagnosis. See comment. MELI:juan 03/29/19 COMMENT The entire appendix is examined. MICROSCOPIC DESCRIPTION Slides are reviewed. GROSS DESCRIPTION A - Received in fixative is one container labeled with the patient's name and designated uterus, cervix, bilateral fallopian tubes and right ovary. The specimen consists of a hysterectomy specimen consisting of uterus with cervix, attached bilateral tubes and right ovary. The uterus with cervix weighs 85 gm and measures 9 x 5 x 4.5 cm. The serosal surface is murphy, glistening. The ectocervical mucosa is unremarkable. The external os is slit-like in contour. The endocervical canal measures 3 cm in length and the endocervical mucosa is murphy, glistening and unremarkable. The triangular endometrial cavity measures 5 cm in length and 3 cm in width. The endometrial cavity contains hemorrhagic fluid. The endometrium appears to be almost denuded. A focal area shows small amount of endometrial tissue which appears hemorrhagic without any mass lesion and measures 0.1 cm in thickness. Sections of the uterus reveal one nodular mass measuring 1 cm in greatest dimension. Sections of this mass reveal murphy whorled cut surfaces without areas of hemorrhage, necrosis or cystic degeneration. The uninvolved uterine wall measures up to 2.5 cm in thickness. The nodular mass is present in the posterior uterine wall. The right fallopian tube measures 7 cm in length and up to 0.7 cm in diameter. The fimbrial end is identified. No tubo-ovarian adhesions are noted. Sections reveal unremarkable cut surfaces. The soft to cystic right ovary measures 5 x 3.5 x 2 cm. The outer surface is inked black. Sections reveal a collapsed cyst measuring 3 cm in greatest dimension. Sections also reveal multiple cysts filled with clear to hemorrhagic fluid. A hemorrhagic cyst is also noted measuring 1.5 cm in greatest dimension. The left fallopian tube measures 6.5 cm in length and 0.5 cm in diameter. The fimbrial end is not identified. Sections do not reveal any mass lesion. Monkey Keeper sections are submitted in 11 cassettes as follows: 1 - anterior cervix, 2 - posterior cervix, 3 & 4 - anterior uterine wall, 5 & 6 - posterior uterine wall (cassette 5 also contains the nodular mass), 7 - right fallopian tube, 8-10 - right ovary, 11 - left fallopian tube. B - Received is one container labeled with the patient's name and designated appendix. The specimen consists of an appendix measuring 3.5 cm in length and 0.5 cm in diameter. The attached periappendiceal adipose tissue measures up to 1 cm in width. The serosal surface is focally congested. No obvious perforation is identified. The lumen is filled with a small amount of bloody fluid. No fecalith is identified. The entire appendix is submitted in one cassette. / SJ:rg 03/28/19 TC:1 CPT: 20203, 37221
[2019-03-27] MEDS: Ropivacaine 0.5% 30 ML Vial (13:00)
--- NOTE | 2019-03-27 14:34 | OP.PCM_ITS ---
Report of Operation Date of Procedure: 03/27/19 Pre-Operative Diagnosis: Severe Endometriosis, Chronic Right Lower Quadrant Pain Post-Operative Diagnosis: Severe Endometriosis, Chronic Right Lower Quadrant Pain Surgery/Procedure Performed:: Robotic Assisted Vaginal Hysterectomy, Right Salpingo-Oophorectomy and Left Salpingectomy; Appendectomy per Dr. Peralta (reported separately) Description of Surgical Findings:: Uterus which is 8 cm, right fallopian tube and ovary with 3 cm simple cyst visualized on right ovary. Left fallopian tube that appears normal. Absent left ovary. Appendix which is adhered. patient transport orderly: Renaldo Fishman Type of Anesthesia:: General - Endotracheal Anesthesiologist: Ulises Arteaga Specimen's removed: Uterus, right fallopian tube and ovary, left fallopian tube, appendix. Drains: Redd to straight drain Estimated Blood Loss (mL): Minimal Fluids Replaced: Crystalloid Description of Procedure: Surgeons: Missael Gupta MD, FACOG, Vasu Peralta MD Indication: This is a 38 year old patient who has been having problems with severe endometriosis and chronic right lower quadrant pain. Conservative measures have not been helpful. The patient has been counseled regarding the risks, benefits and alternatives of this procedure including the possibility of bleeding, infection, and injury to surrounding structures such as bowel bladder and all questions were answered. She understands that since BSO is needed that she will need to be on HRT for an indefinite period of time. Procedure: Pt taken to the operating room where, after induction of general anesthesia, the patient was prepped and draped in the usual sterile fashion and placed on a non-slip Huggy-u-vac device. Trendelenburg test was satisfactory. Bladder was drained of urine with a Redd catheter which was left in place. Anterior cervix grasped and cervix was dilated to about 3-4 mm. Uterus sounded to 8 cms. 0-Vicryl suture was placed at the 3:00 and 9:00 position of the cervix. A medium Advincula Biomass Plant Manager Uterine Manipulator was then placed in the uterus and attention was turned to the laparoscopic portion of the procedure. Ropivocaine 0.5% was injected approximately 2-3 cm superior to the umbilicus and an 8 mm robotic camera port was introduced directly with intraperitoneal placement confirmed with CO2 insufflation. 8 mm robotic side ports were introduced under direct visualization approximately 10 cm lateral and 2 cm inferior to the umbilical port. A 5 mm left upper quadrant port was introduced and airseal insufflation with CO2 was started. The above findings were noted. Robot was docked without difficulty and attention turned to the robotic portion of the procedure. Approximately 30 cc of Ropivicaine was used. Infundibulopelvic ligaments on the right and mesosalpinx on the left were ligated with 35 musa bipolar coagulation to the level of the round ligaments. The posterior aspect of the cervix was identified and then opened for about 1 cm using 25 watt monopolar cautery identifying the uterine manipulating device which had been placed vaginally. Bladder flap was opened and divided to the level of the round ligaments using monopolar cautery. Progressive bites were then ligated on each side of the cervix with 35 musa bipolar cautery to the uterine arteries. The anterior vaginal mucosa was entered and cervix circumscribed with monopolar cautery. Uterus and attached tubes and right ovary were removed through the vagina. Vaginal cuff was closed first with 0-Vicryl Arik stitches placed at each angle followed by closure of the mid-cuff with 0- Monocryl V-lock suture in two layers. Pelvis was copiously irrigated with saline and the right ureter was noted to peristalse. At this point in the procedure Dr. Peralta began his appendectomy which is reported separately. After completing Dr. Peralta's portion of the procedure, the robot was undocked and trocars were removed with as much gas as possible. Incisions were closed with 4-0 Monocryl subcuticular sutures and incisions covered with steri- strips. The patient tolerated the procedure well and was taken to the recovery room in satisfactory condition. Sponge, instruments and needle counts were all correct. There were no apparent complications of the surgery. Cefotan 2 gms IV was given prior to the procedure. Estimated Blood Loss: Minimal Grafts/Implants Used: None - Complications None - Admit VTE Documentation VTE Present on Admission: Yes VTE Mechan Device Prophylaxis: SCD's VTE Pharm Prophylaxis ordered?: Yes
--- NOTE | 2019-03-27 14:44 | PCM.DC.VHY ---
Discharge Diet: No Restrictions Discharge Activity: Return to Normal Activity, May Not Drive - while taking narcotic pain medications., May Shower May resume sexual activity in: 6-8 weeks Call your doctor if your incision/area has: Continuous Slow Oozing, Sudden Increased Bleeding, Increased Pain/ Swelling, Increased Redness, Foul Smelling Discharge Call your doctor if you observe: Fever of 101 or Higher, Inability to urinate, Inability to have a bowel movement, Using more than one pad per hour Allergies/Adverse Reactions: Allergies tramadol [From Ultram] Adverse Reaction (Intermediate, Verified 03/27/19 09:26) hallucinations hydrocodone bitartrate [From Vicodin] Adverse Reaction (Verified 03/27/19 09:26) Vomiting Medications to take at Discharge alprazolam 0.25 mg tablet 0.25 mg PO BID-TID PRN 04/22/18 multivitamin capsule 1 cap PO DAILY 04/22/18 Acetaminophen/Butalbital/Caffe [Fioricet] 1 tab PO Q4H PRN PRN #20 tab 04/27/18 Ibuprofen [Advil] 200 mg PO DAILY 03/20/19 Docusate Sodium [Colace] 100 mg PO BID PRN PRN #60 cap 03/27/19 Estradiol 2 mg PO DAILY #100 tab 03/27/19 Oxycodone [Oxyir] 5 mg PO Q6H PRN PRN 7 Days #20 tab 03/27/19 The following prescriptions were given: Docusate Sodium [Colace] 100 mg PO BID PRN PRN #60 cap PRN Reason: Constipation Prescription Printed Estradiol 2 mg PO DAILY #100 tab Prescription Printed Oxycodone [Oxyir] 5 mg PO Q6H PRN PRN 7 Days #20 tab PRN Reason: Severe Pain (6-06/01) Prescription Printed Orders to be completed after discharge: ,Urine Time Frame: 03/27/19, Facility: [facility], Location: Laboratory Primary Care Physician: John Shabazz MD [Primary Care Provider] - Test Results: Test results from this visit will be discussed in further detail at your follow-up appointment, if applicable. Please Follow Up With: Missael Gupta MD When: 2 to 3 weeks
--- NOTE | 2019-03-27 16:27 | PCM.OPRPT ---
Problem List (1) RLQ abdominal pain Status: Acute Report of Operation Date of Procedure: 03/27/19 Pre-Operative Diagnosis: Right lower quadrant pain Post-Operative Diagnosis: Same Surgery/Procedure Performed:: Robotic assisted laparoscopic appendectomy Specimen's removed: Appendix Description of Procedure: Dr. Gupta performed a robotic assisted vaginal hysterectomy. Once his portion of the case was complete the robot was used to identify the tip of the appendix. Bipolar cautery and scissor monopolar was used to take down the mesoappendix. Once the base of the appendix was reached the right lower quadrant port was removed and the port was upsized to a 12 mm port. The stapler was placed into this port and placed across the base the appendix and fired. The stapler was then removed and the Endo Catch bag was placed into the abdomen through this port and the appendix was placed into the bag and removed from the abdomen. The staple line was inspected and appeared to be hemostatic as did the mesoappendix. Next the pelvis was inspected once more and there was no bleeding. The robot was undocked and the patient was placed in flat position in the ports were removed. The right lower quadrant fascia was closed with interrupted 0 Vicryl suture and then all of the remaining ports were closed with skin sutures and bandages. Patient was taken to PACU in stable condition. - Admit VTE Documentation VTE Mechan Device Prophylaxis: SCD's
[2019-03-27] MEDS: Ondansetron 4 MG/2 ML Vial IV (17:57)
[2019-03-27] MEDS: Dextrose 5%-Lactated Ringers 1,000 ML 125 ML IV (17:57)
[2019-03-27] MEDS: HYDROmorphone 0.5 MG/0.5 ML SYRINGE IV (17:57)
[2019-03-27] MEDS: 0.9% NaCl Peripheral Flush Adult/Peds IV ×2 (18:02→19:02)
[2019-03-27] MEDS: Enoxaparin 30 MG/0.3 ML Syringe SC (19:02)
[2019-03-27] MEDS: Ketorolac 30 MG/ML Syringe IV (19:02)
[2019-03-27] MEDS: Acetaminophen 500 MG Tablet 1000 MG PO (19:48)
[2019-03-27] MEDS: oxyCODONE 5 MG Tablet PO (21:21)
[2019-03-28] MEDS: 0.9% NaCl Peripheral Flush Adult/Peds IV ×2 (00:05→05:09)
[2019-03-28] MEDS: Ketorolac 30 MG/ML Syringe IV ×2 (00:05→05:09)
[2019-03-28 00:17] VITALS: BP 92/49; PULSE 48; RESP 16; TEMP 36.8; O2SAT 97
[2019-03-28] MEDS: oxyCODONE 5 MG Tablet PO (02:13)
[2019-03-28 05:28] VITALS: BP 91/52; PULSE 53; RESP 16; TEMP 37; O2SAT 97
[2019-03-28 06:27] LABS: Hematocrit 35.4 % (37-47); Hemoglobin 11.9 g/dL (12.0-15.0); Mean Corp Hgb Conc 33.6 g/dL (32-36); Mean Corpuscular Hgb 29.7 pg (27.0-32.0); Mean Corpuscular Volume 88.3 fL (81-99); Mean Platelet Vol. 9.9 fl (6.2-12.0); Platelet Count 368 K/mm3 (150-450); RBC Distribution Width CV 11.9 % (11.6-14.6); RBC Distribution Width SD 38.7 fl (35.1-43.9); Red Blood Count 4.01 M/mm3 (4.2-5.4); White Blood Count 27.8 K/mm3 (4.4-11.0)
[2019-03-28 06:39] LABS: Creatinine, Serum 0.82 mg/dL (0.55-1.02); EST Glomerular Filtration Rate 83 mL/min (>60); Est Glom Filt Rate - Afr Amer 100 mL/min (>60); Estimated Creatinine Clearance 81.11 ml/min
--- NOTE | 2019-03-28 06:54 | PCM.PN.OB ---
Patient Problems: Active and Suspected Problems (Last Reviewed 03/06/19 @ 08:38 by Shannon Saba) RLQ abdominal pain (Acute) Subjective: Patient without complaints. Tolerating diet well. Denies flatus. Pain well controlled. Minimal vaginal bleeding reported. - Physical Exam Vital Signs Temp Pulse Resp BP Pulse Ox 98.6 F 53 L 16 91/52 L 97 03/28/19 05:28 03/28/19 05:28 03/28/19 05:28 03/28/19 05:28 03/28/19 05:28 Oxygen Delivery Method Room Air Weight: 132 lb 0.91 oz Body Mass Index (BMI) 22.6 Intake and Output for Last 24 Hours 03/26/19 03/27/19 03/28/19 23:59 23:59 23:59 Intake Total 3522 / 3522 1544 / 1544 Output Total 530 / 530 1400 / 1400 Balance 2992 / 2992 144 / 144 Laboratory Tests Past 24 Hrs 03/27/19 03/27/19 03/27/19 09:08 09:26 09:26 WBC RBC Hgb Hct MCV MCH MCHC RDW Std Deviation RDW Coeff of Martin Plt Count MPV PT 13.8 INR 1.1 APTT 29.1 Creatinine 0.68 Estim Creat Clear Calc 97.81 Est GFR (MDRD) Af Amer 125 Est GFR (MDRD) Non-Af 104 Urine Test Negative Blood Type Antibody Screen 03/27/19 03/28/19 03/28/19 09:26 06:05 06:05 WBC 27.8 H RBC 4.01 L Hgb 11.9 L Hct 35.4 L MCV 88.3 MCH 29.7 MCHC 33.6 RDW Std Deviation 38.7 RDW Coeff of Martin 11.9 Plt Count 368 MPV 9.9 PT INR APTT Creatinine 0.82 Estim Creat Clear Calc 81.11 Est GFR (MDRD) Af Amer 100 Est GFR (MDRD) Non-Af 83 Urine Test Blood Type A POSITIVE Antibody Screen NEGATIVE Wounds are clean, dry, intact. Good urine output. Hemoglobin and creatinine okay. WBC noted but no evidence of infection. Medical Necessity - Tobacco Use Smoking Status: Never smoker Assessment/Plan All Active Problems (Last Reviewed 03/06/19 @ 08:38 by Shannon Saba) RLQ abdominal pain (Acute) Pharyngitis, acute (Acute) Endometrial mass (Acute) Cervical dysplasia (Acute) Doing well postoperative day #1. Will discharge to home later today with routine instructions. Follow-up 2 weeks in 6 weeks. To call with any fevers or increasing pain.
== END 2019-03-28 08:02 | disposition home or self-care (01) ==
LOC: SDC 08:58 → AC 08:59 → MS3 11:17
PROVIDERS: Surgery; Family Provider Family Medicine; PCP Family Medicine; Referring Provider Obstetrics & Gynecology; Visit Provider Obstetrics & Gynecology
PROC: 0UT94ZZ Resection of Uterus, Percutaneous Endoscopic Approach (ICD-10-PCS; CPT 58552; principal; 2019-03-27 10:50)
PROC: 0DTJ4ZZ Resection of Appendix, Percutaneous Endoscopic Approach (ICD-10-PCS; CPT 44970; 2019-03-27 10:50)
DX: D25.1 Intramural leiomyoma of uterus (principal); N80.0 Endometriosis of uterus; N87.9 Dysplasia of cervix uteri, unspecified; N72 Inflammatory disease of cervix uteri; N94.10 Unspecified dyspareunia; R10.2 Pelvic and perineal pain; N83.01 Follicular cyst of right ovary; R10.31 Right lower quadrant pain; E03.9 Hypothyroidism, unspecified; K58.9 Irritable bowel syndrome, unspecified; G43.909 Migraine, unspecified, not intractable, without status migrainosus; F41.9 Anxiety disorder, unspecified; Z79.899 Other long term (current) drug therapy; Z88.5 Allergy status to narcotic agent; Z88.8 Allergy status to other drugs, medicaments and biological substances; Z97.5 Presence of (intrauterine) contraceptive device
CPT/HCPCS: 00940; 44970; 58552; S2900 ×2; 36415; 81025; 82565; 85027; 85610; 85730; 86850; 86900; 88302; 88307; J7120; A4216; J2405

== ENCOUNTER → 2019-11-22 08:56 | Outpatient (CLI) | payer OTHER, SELFPAY ==
[2019-03-27 09:27] VITALS: BMI 22.6
[2019-11-22 10:24] LABS: Vitamin D,25 Hydroxy 24.8 ng/mL
[2019-11-22 12:57] LABS: T4 Free Direct 0.83 ng/dL (0.76-1.46)
== END ==
PROVIDERS: PCP Family Medicine; Referring Provider Family Medicine; Visit Provider Family Medicine
DX: E03.9 Hypothyroidism, unspecified (principal); E55.9 Vitamin D deficiency, unspecified
CPT/HCPCS: 36415; 82306; 84439; 84443

== ENCOUNTER → 2020-05-02 15:04 | Outpatient (CLI) | payer OTHER, SELFPAY ==
[2019-03-27 09:27] VITALS: BMI 22.6
--- NOTE | 2020-05-02 15:07 | BI_ITS ---
MAMMOGRAPHY - BILATERAL SCREENING REASON FOR EXAM: Female, 39 years old. Routine annual screening examination. PERTINENT HISTORY: Grandmother with breast cancer. Aunt with breast cancer. History of prior bilateral breast reduction surgery. Six-month history of the right breast. TECHNIQUE: Digital bilateral breast micha (3D mammographic acquisition) in the CC and MLO projections. 2-D mediolateral oblique (MLO) and craniocaudad (CC) views of both breasts were obtained. CAD: Full Field Digital Mammography with Computer Added Detection was performed. COMPARISON: Comparison is made with prior examination dated 02/18/2019 and 12/16/2016. FINDINGS: Breast Composition: The breasts are extremely dense, which lowers the sensitivity of mammography. There are no dominant masses or suspicious calcifications. No other significant abnormalities are identified. There has been no significant change since the prior study. BI/SCREEN MAMM (CAD) W/MICHA BILAT IMPRESSION: Stable bilateral screening mammogram. With the patient''s history of a right breast lump, correlation with ultrasound is recommended. ASSESSMENT CATEGORY: BIRADS Category 0: Incomplete. Need additional imaging evaluation. A letter regarding these results will be sent to the patient by the facility within 30 days. Approximately 10% of breast cancers are not detected by mammography. A normal mammogram should not delay biopsy of a clinically suspicious abnormality. [id number] Electronically Signed: Bakari Gongora, at 8:22 EDT , Service support ,
== END ==
PROVIDERS: PCP Family Medicine; Referring Provider Obstetrics & Gynecology; Visit Provider Obstetrics & Gynecology
DX: Z12.31 Encounter for screening mammogram for malignant neoplasm of breast (principal)
CPT/HCPCS: 77063; 77067

== ENCOUNTER → 2020-05-09 13:38 | Outpatient (CLI) | payer OTHER, SELFPAY ==
[2019-03-27 09:27] VITALS: BMI 22.6
--- NOTE | 2020-05-09 13:41 | US_ITS ---
STUDY: ULTRASOUND BREAST - RIGHT REASON FOR EXAM: Female, 39 years old. Palpable lump in the right breast. TECHNIQUE: Axial and longitudinal images of the RIGHT breast were performed with a high resolution ultrasound transducer. # OF IMAGES: 36 COMPARISON: Comparison is made with prior mammogram dated 05/02/2020 and prior sonogram of the right breast dated 09/16/2015. FINDINGS: RIGHT Breast: The upper outer quadrant of the right breast was examined by ultrasound. No sonographic abnormality is seen. US/Breast Limited Unilateral IMPRESSION: No sonographic abnormality is seen. ASSESSMENT CATEGORY: BIRADS Category 1: Negative. A letter regarding these results will be sent to the patient by the facility within 30 days. Electronically Signed: Bakari Gongora, at 15:10 EDT , Service support ,
== END ==
PROVIDERS: PCP Family Medicine; Referring Provider Obstetrics & Gynecology; Visit Provider Obstetrics & Gynecology
DX: N63.10 Unspecified lump in the right breast, unspecified quadrant (principal)
CPT/HCPCS: 76642

== ENCOUNTER → 2020-06-20 | Outpatient (CLI) | payer OTHER, SELFPAY ==
--- NOTE | 2020-06-20 | BRBX_PTH ---
PATIENT: CHARLENE CARLIN LOC: [facility] U#:[id number] AGE/SX: 39/F ROOM: RE06/20/[address]: Dr. Vasu Peralta MD : 1980 BED: DIS: 06/20/2020 SPEC #: [id number] RECD: 06/20/20 09:13 STATUS: THOMAS BETTYE #: [id number] HERBERT: 06/20/20 00:[address]: Vasu Peralta DEPT: SURGICAL PATHOLOGY RECD BY: Kulwinder Hernandez ENTERED: 06/20/20 10:32 SP TYPE: BREAST BX OTHR DR: Dr. Shawn Shabazz MD Tissues: Right breast, NOS Procedures: Surgery Specimen Level IV HEADER OPERATION: Excision of right breast nodule PRE-OP DIAGNOSIS: Right breast nodule TISSUE SUBMITTED: Right breast tissue MICROSCOPIC DIAGNOSIS Right breast tissue, excisional biopsy: Fragments of benign fibroadipose tissue and a piece of unremarkable skin, negative for atypia or malignancy. See comment. MELI:juan 06/21/20 COMMENT The lesion may represent fibrolipoma. Breast tissue is not identified in the submitted specimen. Correlation with clinical, radiologic findings and appropriate follow up are necessary. MICROSCOPIC DESCRIPTION Slides are reviewed. GROSS DESCRIPTION Received in fixative is one container labeled with the patient name and designated right breast nodule. The specimen consists of multiple fragments of murphy-yellow fibroadipose tissue that in aggregate measure 2 x 1 x 0.2 cm. The entire specimen is submitted in one cassette. / MELI:juan 06/20/20 TC:5 [facility]: [id number]
== END | disposition home or self-care (01) ==
LOC: LABSPEC 09:21
PROVIDERS: PCP Family Medicine; Referring Provider Surgery; Visit Provider Surgery
DX: N63.10 Unspecified lump in the right breast, unspecified quadrant (principal)
CPT/HCPCS: 88305

== ENCOUNTER → 2020-06-25 | Outpatient (CLI) | payer OTHER, SELFPAY | END | disposition home or self-care (01) | LOC: LABSPEC 14:26 | PROVIDERS: PCP Family Medicine; Referring Provider Family Medicine; Visit Provider Family Medicine | DX: Z20.828 Contact with and (suspected) exposure to other viral communicable diseases (principal) | CPT/HCPCS: 87635; U0003 ==

== ENCOUNTER → 2020-12-10 15:27 | Outpatient (CLI) | payer OTHER, SELFPAY ==
[2020-12-10 18:20] LABS: Hematocrit 41.2 % (37-47); Hemoglobin 12.7 g/dL (12.0-15.0); Mean Corp Hgb Conc 30.8 g/dL (32-36); Mean Corpuscular Hgb 27.5 pg (27.0-32.0); Mean Corpuscular Volume 89.4 fL (81-99); Mean Platelet Vol. 10.1 fl (6.2-12.0); Platelet Count 418 K/mm3 (150-450); RBC Distribution Width CV 12.2 % (11.6-14.6); RBC Distribution Width SD 39.7 fl (35.1-43.9); Red Blood Count 4.61 M/mm3 (4.2-5.4); White Blood Count 6.9 K/mm3 (4.4-11.0)
[2020-12-10 18:37] LABS: Erythrocyte Sedimentation Rate 6 mm/hr (0-30)
[2020-12-10 18:38] LABS: Vitamin D,25 Hydroxy 36.1 ng/mL
[2020-12-10 18:51] LABS: CRP 4.82 mg/L (0.0-3.0); Free T3 2.7 pg/mL (2.18-3.98); Rheumatoid Factor < 10.0 IU/mL (<15); T4 Free Direct 0.88 ng/dL (0.76-1.46); Thyroid Stim Hormone (TSH) 1.93 uIU/mL (0.358-3.74)
[2020-12-12 18:38] LABS: ANTINUCLEAR ANTIBODIES DIRECT Negative (Negative)
== END ==
PROVIDERS: PCP Family Medicine; Visit Provider Family Medicine
DX: M25.50 Pain in unspecified joint (principal); R94.6 Abnormal results of thyroid function studies
CPT/HCPCS: 36415; 82306; 84439; 84443; 84481; 85027; 85652; 86038; 86140; 86431

== ENCOUNTER → 2021-07-29 12:39 | Outpatient (CLI) | payer OTHER, SELFPAY ==
--- NOTE | 2021-07-29 12:41 | BI_ITS ---
MAMMOGRAPHY - BILATERAL SCREENING REASON FOR EXAM: Female, 40 years old. Routine annual screening examination. PERTINENT HISTORY: Grandmother with breast cancer. Aunts with breast cancer. Prior right excisional breast biopsy. TECHNIQUE: Digital bilateral breast micha (3D mammographic acquisition) in the CC and MLO projections. 2-D mediolateral oblique (MLO) and craniocaudad (CC) views of both breasts were obtained. CAD: Full Field Digital Mammography with Computer Added Detection was performed. COMPARISON: Comparison is made with prior study dated 05/02/2020 and 02/18/2019. FINDINGS: Breast Composition: The breasts are extremely dense, which lowers the sensitivity of mammography. There are no dominant masses or suspicious calcifications. No other significant abnormalities are identified. There has been no significant change since the prior study. BI/SCRN MAMM (CAD)W/MICHA BILAT IMPRESSION: Stable bilateral screening mammogram. Yearly follow-up mammogram recommended. (A) ASSESSMENT CATEGORY: BIRADS Category 1: Negative. A letter regarding these results will be sent to the patient by the facility within 30 days. Approximately 10% of breast cancers are not detected by mammography. A normal mammogram should not delay biopsy of a clinically suspicious abnormality. [id number] Electronically Signed: Bakari Gongora MD at 8:13 EST , Service support ,
== END ==
PROVIDERS: PCP Family Medicine; Referring Provider Obstetrics & Gynecology; Visit Provider Obstetrics & Gynecology
DX: Z12.31 Encounter for screening mammogram for malignant neoplasm of breast (principal); Z80.3 Family history of malignant neoplasm of breast
CPT/HCPCS: 77063; 77067

== ENCOUNTER → 2022-01-28 | Outpatient (CLI) | payer OTHER, SELFPAY ==
--- NOTE | 2022-01-28 13:13 | RAD_ITS ---
STUDY: X-RAY - LUMBAR SPINE REASON FOR EXAM: Female, 41 years old. PAIN TECHNIQUE: XR Spine Lumbar Min 4 Views COMPARISON: None FINDINGS: Normal lumbar lordosis. There is no substantial scoliosis. There is a normal alignment of the vertebrae. Normal vertebral bodies and endplates. Normal disc space heights. The soft tissue structures are unremarkable. RAD/L/S Spine Min 4 Views IMPRESSION: There are no acute findings. Electronically Signed: Jonah Medina MD at 19:51 EDT ,
== END | disposition home or self-care (01) ==
LOC: MTRAD 13:11
PROVIDERS: PCP Family Medicine; Referring Provider Family Medicine; Visit Provider Family Medicine
DX: M54.50 Low back pain, unspecified (principal)
CPT/HCPCS: 72110

== ENCOUNTER → 2024-06-05 | Outpatient (CLI) | payer OTHER, SELFPAY ==
--- NOTE | 2024-06-05 07:13 | US_ITS ---
STUDY: ABDOMINAL ULTRASOUND - ELASTOGRAPHY REASON FOR VISIT: Female, 43 years old. Abdominal pain TECHNIQUE: Liver stiffness measurements were obtained on a Peeky RS 85 ultrasound machine using a CA 1-7 probe following the SRU guidelines. 3 measurements were obtained using a 2-D-SWE method. TheIQR/M was 12% suggesting a quality data set. TECHNICAL QUALITY: Adequate. COMPARISON: FINDINGS: Liver: There is no demonstrated mass lesion. Median liver stiffness measured 5.1 kPa. Abdomen: Multiple shadowing stones within the gallbladder consistent with cholelithiasis. US/ABD Limited w/ Elastography IMPRESSION: Liver stiffness measures 5.1 kPa compatible with F0-F1 Metavir score. Electronically Signed: Willy Funk MD at 12:53 EDT ,
== END | disposition home or self-care (01) ==
LOC: US 07:12
PROVIDERS: PCP Family Medicine
DX: K58.0 Irritable bowel syndrome with diarrhea (principal); K31.84 Gastroparesis
CPT/HCPCS: 76705; 76981

== ENCOUNTER → 2024-06-06 | Outpatient (CLI) | payer OTHER, SELFPAY ==
--- NOTE | 2024-06-06 18:15 | CT_ITS ---
EXAM: CT ABDOMEN AND PELVIS WITH INTRAVENOUS CONTRAST CLINICAL INDICATION: sharp constant LLQ abdominal pain TECHNIQUE: Helically acquired images were obtained of the abdomen and pelvis with intravenous contrast. This CT exam was performed using one or more of the following dose reduction techniques: automated exposure control, adjustment of the mA and/or kV according to patient size, and/or use of iterative reconstruction technique. CONTRAST: Oral and amp; IV Readi-CAT and amp; 100mL Isovue-370 RADIATION DOSE: CTDIvol = 13.54 mGy, DLP = 332.66 mGy-cm COMPARISON: CT abdomen and pelvis with contrast 02/09/2019. FINDINGS: LOWER THORAX: Unremarkable. Lung bases are clear. No cardiomegaly. No significant pericardial effusion. ABDOMEN: LIVER: Unremarkable. Homogeneous. No focal mass. GALLBLADDER AND BILE DUCTS: Unremarkable. No calcified gallstones. No gallbladder distention or wall edema. No intra- or extrahepatic biliary ductal dilation. PANCREAS: Unremarkable. No focal cystic or solid mass. SPLEEN: Unremarkable. Normal size without focal cystic or solid mass. ADRENALS: Unremarkable. No nodules. KIDNEYS AND URETERS: Unremarkable. Normal renal size and position. No hydronephrosis. STOMACH AND BOWEL: Contrast distention of the stomach. Contrast in small bowel bowel, right: And hepatic flexure. No bowel obstruction. No focal inflammatory change. PELVIS: APPENDIX: Normal. BLADDER: Unremarkable. 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 ABDOMEN and PELVIS: INTRAPERITONEAL SPACE: Unremarkable. No ascites or other fluid collection. No free air. BONES/JOINTS: Unremarkable. No suspicious lytic or blastic abnormality. SOFT TISSUES: Unremarkable. No discrete abdominal or pelvic wall hernia. VASCULATURE: Unremarkable. Abdominal aorta is non-dilated. LYMPH NODES: Unremarkable. No enlarged lymph nodes. CT/Abdomen/Pelvis WITH Contrast IMPRESSION: 1. No bowel obstruction or acute abnormality in the abdomen and pelvis. 2. Interval hysterectomy and bilateral oophorectomy. 3. No significant interval change when compared to 02/09/2019. Electronically Signed: Jose E Langston MD at 16:05 EDT ,
== END | disposition home or self-care (01) ==
LOC: CT 17:10
PROVIDERS: PCP Family Medicine
DX: R10.32 Left lower quadrant pain (principal); K58.0 Irritable bowel syndrome with diarrhea; K31.84 Gastroparesis
CPT/HCPCS: 74177; Q9967; A4216

== ENCOUNTER 2024-06-13 13:05 | Day surgery (SDC) | payer OTHER, SELFPAY ==
[2024-06-05 09:07] LABS: Erythrocyte Sedimentation Rate 2 mm/hr (0-30)
[2024-06-05 10:04] LABS: AST(SGOT) 19 U/L (15-37); Alanine Aminotransfer ALT/SGPT 25 U/L (13-56); Albumin, Serum 3.9 g/dL (3.2-5.0); Alkaline Phosphatase 71 U/L (45-117); Anion Gap 7 (5-15); BUN 9 mg/dL (7-18); BUN/Creat Ratio 12.9 RATIO (10-20); CRP 3.21 mg/L (0.0-3.0); Calcium,Total 9.4 mg/dL (8.5-10.1); Chloride 103 mmol/L (98-107); EST Glomerular Filtration Rate 98 mL/min (>60); Est Glom Filt Rate - Afr Amer 118 mL/min (>60); Free T3 2.5 pg/mL (2.18-3.98); Globulin 4.1 g/dL (2.2-4.2); Glucose 86 mg/dL (74-106); LDH 186 U/L (84-246); Potassium 4.2 mmol/L (3.5-5.1); Sodium Level 139 mmol/L (136-145); T4 Free Direct 0.89 ng/dL (0.76-1.46)
[2024-06-08 21:07] LABS: ACCA 46 units (0-90); ALCA 73 units (0-60); AMCA 108 units (0-100); Albumin 3.8 g/dL (2.9-4.4); Alpha-1-Globulins 0.2 g/dL (0.0-0.4); Alpha-2-Globulins 0.6 g/dL (0.4-1.0); Cytoplasmic Ab (C-ANCA) <1:20 titer (Neg:<1:20); Endomysial Antibody IgA Negative (Negative); Immunoglobulin A 247 mg/dL (87-352); Immunoglobulin E 32 IU/mL (6-495); Immunoglobulin G 1239 mg/dL (586-1602); Immunoglobulin M 138 mg/dL (26-217); PROEL- TOTAL PROTEIN 6.5 g/dL (6.0-8.5); Perinuclear Ab (P-ANCA) <1:20 titer (Neg:<1:20); gASCA 84 units (0-50); t-Transglutaminase IgA <2 U/mL (0-3)
[2024-06-11 02:06] LABS: Anti-Centromere B Ab <0.2 AI (0.0-0.9); Anti-Chromatin <0.2 AI (0.0-0.9); Anti-Jo <0.2 AI (0.0-0.9); Anti-Scleroderma-70 AB <0.2 AI (0.0-0.9); Anti-dsDNA Ab 1 IU/mL (0-9); Chocolate <0.10 kU/L (Class 0); Codfish <0.10 kU/L (Class 0); Corn <0.10 kU/L (Class 0); Egg, Whole <0.10 kU/L (Class 0); Milk (Cow) <0.10 kU/L (Class 0); Mussels <0.10 kU/L (Class 0); Peanut <0.10 kU/L (Class 0); Pork <0.10 kU/L (Class 0); RNP Ab 0.2 AI (0.0-0.9); SJOGREN'S Anti-SS-A test < 0.2 AI (0.0-0.9); SJOGREN'S Anti-SS-B test < 0.2 AI (0.0-0.9); Salmon <0.10 kU/L (Class 0); Shrimp <0.10 kU/L (Class 0); Smith Ab <0.2 AI (0.0-0.9); Soybean <0.10 kU/L (Class 0); Tuna <0.10 kU/L (Class 0); Wheat <0.10 kU/L (Class 0)
[2024-06-13] VITALS (8 sets, daily range): BP systolic 93–111; BP diastolic 58–75; PULSE 58–557; RESP 14–16; TEMP 36–37.2; O2SAT 98–100; BMI 18.9
--- NOTE | 2024-06-13 13:50 | PCM.PRE.AN2 ---
ASA Classification* ASA Classification ASA Classification: 2 Assessment & Plan Anesthesia* Anesthesia Assessment Anesthesia Assessment: Discussed sedation and/or anesthesia options, risks, benefits, and alternatives with patient/parents/legal guardian/POA. Questions invited. The patient/parents/legal guardian/POA seems to understand and agrees to proceed with anesthesia plan. Reviewed the physical assessment, medical history, allergy history and patient home medications list prior to surgery/procedure/anesthetic and documented any changes. Performed airway and anesthesia risk assessments. Anesthesia Type Anesthesia Type: MAC History Source History Obtained from:: Patient and Chart Anesthesia Focused Assessment* Temperature: 98.9 F Pulse Rate: 60 Blood Pressure: 111/75 Respiratory Rate: 16 Pulse Ox: 100 Oxygen Delivery Method: Room Air Airway Assessment Mouth opens: >3 cm Mallampati Score: I Teeth Condition: Caps/Crowns (Patient's top teeth 6 through 11 are all crowns. They are all tight.) and Missing (1 missing molar left upper.) Neck Range of motion (ROM): Full ROM Focused Labs Anesthesia Preop lab: CBC WBC 4.6 K/mm3 (4.4-11.0) 06/05/24 08:10 RBC 4.90 M/mm3 (4.2-5.4) 06/05/24 08:10 Hgb 13.9 g/dL (12.0-15.0) 06/05/24 08:10 Hct 43.8 % (37-47) 06/05/24 08:10 Plt Count 229 K/mm3 (150-450) 06/05/24 08:10 CHEMISTRY Potassium 4.2 mmol/L (3.5-5.1) 06/05/24 08:12 Sodium 139 mmol/L (136-145) 06/05/24 08:12 Phosphorus 2.9 mg/dL (2.5-4.9) 06/05/24 08:10 BUN 9 mg/dL (7-18) 06/05/24 08:12 Creatinine 0.70 mg/dL (0.55-1.02) 06/05/24 08:12 Glucose 86 mg/dL (74-106) 06/05/24 08:12 TSH 1.240 uIU/mL (0.358-3.740) 06/05/24 08:12 COAG PT 13.8 SECONDS (11.7-14.9) 03/27/19 09:26 HCG, Quant < 1 mIU/mL (<9 non-preg) 06/29/17 16:23 Urine Test Negative Negative 03/27/19 09:08 Pre-Assessment Diagnosis/Proposed Procedure Planned Operative Procedure(s): EGD/CSCOPE Anesthesia History 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 When Was Last Pacemaker Check QUESTION #4 FULL TEXT: You/Your Family Experience fever (hyperthermia) with Anesthesia Last Oral Intake Last Oral intake: Last Oral Intake NPO since Meds taken in AM with sips of water? Meds patient instructed to take am of surgery Any additional information?: Yes NPO since: 09:00 (Patient finished prep at 9 AM.) PONV PONV - community development technician: PONV - community development technician Female Yes 06/12/24 13:57 HX of Motion Sickness Yes 06/12/24 13:57 HX of N/V After Surgery No 06/12/24 13:57 Non-Smoker Yes 06/12/24 13:57 Duration of Surgery greater No 06/12/24 13:57 than 60 minutes Number of Risk Factors 3 06/12/24 13:57 PONV Score Moderate Risk 06/12/24 13:57 Height & Weight Height & Weight: Anesthesia: Height & Weight Height 5 ft 4 in 06/13/24 13:21 Weight: 50 kg 06/13/24 13:21 Body Mass Index (BMI) 18.9 06/13/24 13:21 Respiratory Assessment Respiratory Assessment - community development technician: Respiratory Tract Infection Hx - community development technician Hx Respiratory Tract Infection No 06/12/24 13:57 STOP Sleep Apnea STOP Sleep Apnea - community development technician: STOP Sleep Apnea - community development technician Hx Hypertension No 06/12/24 13:57 Hx Sleep Apnea No 06/12/24 13:57 CPAP No 03/27/19 15:30 BIPAP No 03/20/19 11:18 Do you snore loudly (louder No 06/12/24 13:57 than talking or can be heard Do you often feel tired/ Yes 06/12/24 13:57 fatigued/ sleepy during daytime? Has anyone observed you stop No 06/12/24 13:57 breathing during sleep? STOP Results Negative 06/12/24 13:57 QUESTION #5 FULL TEXT : Do you snore loudly (louder than talking or can be heard through closed doors)? Tobacco Use History Tobacco Use History - community development technician: Tobacco Use History - community development technician Tobacco Use Smoking Status Never smoker 06/12/24 13:57 Hx Tobacco Use No 06/12/24 13:57 Years Smoking Packs Smoked per Day Smoking Cessation Date was within the last 15 years Hx Smoking Cessation Date Hx Smoking Cessation Counseling Hematologic Medial History Hematologic Hx - community development technician: Hematologic Medical Hx - bander Hx of Blood Transfusion No 06/12/24 13:57 Hx of Transfusion in last 3 No 06/12/24 13:57 Months Date of Last Transfusion (if within last 3 months) Ever experience any problems No 06/12/24 13:57 with transfusion(s)? Specify any problems Hx of Preganancy in last 3 No 06/12/24 13:57 Months Nurse Filling Out Transfusion DSCHRIBER 06/12/24 13:57 & Questions: Date: 06/12/24 06/12/24 13:57 Time: 13:58 06/12/24 13:57 Patient unable to answer at this time (ie. confused, unrespo /Reproduction History /Reproductive History - community development technician: /Reproductive Hx- community development technician Hx Now No 06/12/24 13:57 Gestational Age (in weeks): EDC: Hx Hx Para Hx Section SAB No 06/12/24 13:57 PFSH Medical History (Updated 06/12/24 @ 14:04 by Nhi Alvarez) Depression Anxiety Injury of head and neck History of hiatal hernia History of IBS History of diverticulitis Nausea Non-smoker Anxiety and depression History of TIA (transient ischemic attack) History of cervical dysplasia Peritonitis Back pain Thyroid disease Chest pain Migraines Hay fever Fatigue Home Medications ?Medication ?Instructions ?Recorded ?Last Taken ?Type multivitamin 1 cap PO DAILY 04/22/18 Unknown History alprazolam 0.25 mg tablet (Xanax) 0.5 mg PO BID-TID PRN Anxiety 06/06/20 Unknown History cholecalciferol (vitamin D3) 50 50 mcg PO QDAY 05/16/24 Unknown History mcg (2,000 unit) capsule estradiol 2 mg tablet 2 mg PO QDAY 05/16/24 Unknown History levothyroxine 50 mcg tablet 50 mcg PO QDAY 05/16/24 Unknown History lisdexamfetamine 30 mg capsule 30 mg PO QAM 05/16/24 Unknown History (Vyvanse) tizanidine 4 mg capsule 4 mg PO QHS 05/16/24 Unknown History ijsaosescf-pilsayopgbiuj-ngcuosae 1 tab PO QHS Headache 06/12/24 Unknown History 50 mg-325 mg-40 mg tablet fremanezumab-vfrm 225 mg/1.5 mL 225 mg subcut QMONTH 06/12/24 05/23/24 History subcutaneous auto-injector (Ajovy) Allergy/AdvReac Type Severity Reaction Status Date / Time suture Allergy Mild pus Verified 06/13/24 13:20 tramadol (From Ultram) AdvReac Intermediate hallucinati Verified 06/13/24 13:20 ons shellfish derived AdvReac Mild Hives Verified 06/13/24 13:20 hydrocodone bitartrate (From AdvReac Vomiting Verified 06/13/24 13:20 Vicodin) Family History Daughter Asthma Father Hypertension Mother Hypertension Thyroid disorder Diabetes Grandmother Breast cancer Cancer omentum Osteoporosis Aunt Breast cancer Aunt Breast cancer Surgical History (Updated 06/12/24 @ 14:04 by Nhi Alvarez) Hx of resection of rectum History of hysterectomy History of appendectomy History of colonoscopy (~2008) History of dilation and curettage (~2014) History of bilateral breast reduction surgery (~2017) History of loop electrical excision procedure (LEEP) (~2013) History of ovarian cystectomy H/O oophorectomy Social History (Updated 06/27/20 @ 11:18 by Monik BLACK PALishaC) Smoking Status: Never smoker Review of Systems (Anesthesia) ROS Narrative System reviewed and no additional complaints, except as documented.
--- NOTE | 2024-06-13 14:19 | HP.PCM_ITS ---
History and Physical Date of Admission: 06/13/24 CHARLENE CARLIN, is a 43 F who presents to the office today for establishment with [facility] for complaints of sharp constant LLQ abdominal pain. 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 She reports pain has been present for almost 1 year and is concerned that endometriosis may have attached to her intestines. She reports extensive history of dealing with endometriosis: left ovary removed in 2009 and total hysterectomy performed in 2019. She was placed on estradiol as HRT so endometriosis is still a possibility. She states that she tried to go without estrogen replacement after 3 months, which caused her to have hot flashes and suicidal ideations so she went back on HRT. She reports painful urgency with diarrhea, pain is gone following BM. She reports occasional difficulty with swallowing, but relates that to anxiety. She denies difficulty chewing, reflux, heartburn, vomiting and constipation. She reports that she has nausea, poor appetite and early satiety. She does relate the nausea as a migraine aura. She reports that with some fatty food and all types of alcohol or fermented beverages, she gets a sharp gnawing pain to her abdominal RUQ that will last minutes to hours. She does report occasional abdominal RLQ pain briefly associated with intercourse. She states that she still has her gallbladder but has had her appendix removed. September 2023 she had a rectal exam under anesthesia for removal of 2 anal fibroepithelial polyps, one with chronic inflammation. ROS Const Constitutional: Positive for anorexia, fatigue, headache(s) and weight change; No fever(s) Eyes Eyes: No change in vision ENT ENT: Positive for headache(s) and difficulty swallowing; No abnormal hearing Resp Respiratory: No cough Gastro GI: Positive for abdominal pain, bloating, change in bowel habits, diarrhea, difficulty swallowing and excessive flatus; No belching, change in stool character, coffee ground emesis, constipation, cramping, heartburn, feeling full early, incontinent of stools, Vomiting blood/hematemesis, Blood in stool, loose stools, Black,tarry stools, nausea/dyspepsia, pain with swallowing, vomiting or other Genitourinary-Female: No difficulty urinating Musc Musculoskeletal: Positive for joint pain, back pain, joint swelling, muscle cramps, muscle weakness, numbness, tingling, sciatica and leg pain at night Skin Skin: No yellowing of the eye or itchy eyes Neuro Neurology: Positive for headache(s), numbness and tingling; No abnormal hearing Psych Psychiatric: Positive for anxiety and No depression Endo Endocrine: Positive for fatigue and weight change; No cold intolerance or heat intolerance Aller/Imm Allergy/Immunologic: No food intolerance or itchy eyes Byron/Lymp Hematologic/Lymphatic: Positive for easy bruising; No easy bleeding Exam Const General: cooperative, healthy appearing and comfortable Nutritional Appearance: average body habitus and well nourished Orientation: alert HENMT Head: normal to inspection Ears: hearing grossly normal bilaterally Nose: external nose normal Face and sinus: normal facial exam and face symmetric Eyes General: appearance normal, both eyes and all related structures Sclera: sclerae normal Neck Neck: normal visual inspection and full ROM Neck mass: No Chest Chest palpation & inspection: normal inspection of the chest Resp Effort & Inspection: normal respiratory effort, able to speak in complete s entences and symmetric chest movement GI Inspection: normal to inspection Auscultation: normal bowel sounds Skin General: no rashes or lesions noted Neuro General: patient alert, patient awake and patient oriented x3 Cognition: normal cognition Speech: speech normal Gait: normal gait Extrem General: full ROM Psych Appearance: well kempt Mood: congruent mood Assessment and Plan Assessment and Plan (1) Irritable bowel syndrome with diarrhea: Status: Acute Plan: CHARLENE CARLIN, is a 43 F who presents to the office today for establishment with [facility] for complaints of sharp constant LLQ abdominal pain. Differential diagnoses include: IBS-D, IBD, PID, endometrial invasion of intestines, cholecystitis, cholangitis, colitis. Discussed with her regarding holding HRT in order to reduce likelihood of endometriosis returning and she emphatically refused. * order blood for immunology, IBS/D panel, thyroid levels * order stool for enteric/inflammatory markers * GET for early satiety * Abd Ltd US w/elastography for RUQ complaints * Abd/pelvis CT w/contrast for LLQ complaints * EGD for early satiety/anorexia * colonoscopy for diarrhea and pain * call with results * office follow-up in 3 months(2) IBD (inflammatory bowel disease): Status: Acute Orders: Orders Allergen, Food Profile 14 Today K31.84 - Gastroparesis, K52.9 - Noninfective gastroenteritis and colitis, unspecified, K58.0 - Irritable bowel syndrome with diarrhea CRP Today K31.84 - Gastroparesis, K52.9 - Noninfective gastroenteritis and colitis, unspecified, K58.0 - Irritable bowel syndrome with diarrhea Immunoglobulins G/A/M/E Today K31.84 - Gastroparesis, K52.9 - Noninfective gastroenteritis and colitis, unspecified, K58.0 - Irritable bowel syndrome with diarrhea DOMI Comprehensive Panel Today K31.84 - Gastroparesis, K52.9 - Noninfective gastroenteritis and colitis, unspecified, K58.0 - Irritable bowel syndrome with diarrhea ENTERIC PATHOGEN PANEL STOOL Today K31.84 - Gastroparesis, K52.9 - Noninfective gastroenteritis and colitis, unspecified, K58.0 - Irritable bowel syndrome with diarrhea LDH Today K31.84 - Gastroparesis, K52.9 - Noninfective gastroenteritis and colitis, unspecified, K58.0 - Irritable bowel syndrome with diarrhea ANCA Today K31.84 - Gastroparesis, K52.9 - Noninfective gastroenteritis and colitis, unspecified, K58.0 - Irritable bowel syndrome with diarrhea Erythrocyte Sed Rate Today K31.84 - Gastroparesis, K52.9 - Noninfective gastroenteritis and colitis, unspecified, K58.0 - Irritable bowel syndrome with diarrhea Ova and Parasites [id number] Today K31.84 - Gastroparesis, K52.9 - Noninfective gastroenteritis and colitis, unspecified, K58.0 - Irritable bowel syndrome with diarrhea Calprotectin, Stool Today K31.84 - Gastroparesis, K52.9 - Noninfective gastroenteritis and colitis, unspecified, K58.0 - Irritable bowel syndrome with diarrhea Free T3 Today K31.84 - Gastroparesis, K52.9 - Noninfective gastroenteritis and colitis, unspecified, K58.0 - Irritable bowel syndrome with diarrhea Pancreatic Elastase, Fecal Today K31.84 - Gastroparesis, K52.9 - Noninfective gastroenteritis and colitis, unspecified, K58.0 - Irritable bowel syndrome with diarrhea CBC W/Diff, Automated Today K31.84 - Gastroparesis, K52.9 - Noninfective gastroenteritis and colitis, unspecified, K58.0 - Irritable bowel syndrome with diarrhea Giardia Lamblia, Stool EIA Today K31.84 - Gastroparesis, K52.9 - Noninfective gastroenteritis and colitis, unspecified, K58.0 - Irritable bowel syndrome with diarrhea Stool Lactoferrin/WBC Today K31.84 - Gastroparesis, K52.9 - Noninfective gastroenteritis and colitis, unspecified, K58.0 - Irritable bowel syndrome with diarrhea CDIFF (PCR) Today K31.84 - Gastroparesis, K52.9 - Noninfective gastroenteritis and colitis, unspecified, K58.0 - Irritable bowel syndrome with diarrhea IBD Expanded Profile Today K31.84 - Gastroparesis, K52.9 - Noninfective gastroenteritis and colitis, unspecified, K58.0 - Irritable bowel syndrome with diarrhea T4 Free Direct Today K31.84 - Gastroparesis, K52.9 - Noninfective gastroenteritis and colitis, unspecified, K58.0 - Irritable bowel syndrome with diarrhea Celiac Disease Profile Today K31.84 - Gastroparesis, K52.9 - Noninfective gastroenteritis and colitis, unspecified, K58.0 - Irritable bowel syndrome with diarrhea AGA + Protein Elect, Serum Today K31.84 - Gastroparesis, K52.9 - Noninfective gastroenteritis and colitis, unspecified, K58.0 - Irritable bowel syndrome with diarrhea Thyroid Stim Hormone (TSH) Today K31.84 - Gastroparesis, K52.9 - Noninfective gastroenteritis and colitis, unspecified, K58.0 - Irritable bowel syndrome with diarrhea Comprehensive Metabolic Profil Today K31.84 - Gastroparesis, K52.9 - Noninfective gastroenteritis and colitis, unspecified, K58.0 - Irritable bowel syndrome with diarrhea Gastric Emptying Study Today K31.84 - Gastroparesis, K52.9 - Noninfective gastroenteritis and colitis, unspecified, K58.0 - Irritable bowel syndrome with diarrhea ABD Limited w/ Elastography Today K31.84 - Gastroparesis, K52.9 - Noninfective gastroenteritis and colitis, unspecified, K58.0 - Irritable bowel syndrome with diarrhea Abdomen/Pelvis WITH Contrast Today K31.84 - Gastroparesis, K52.9 - Noninfective gastroenteritis and colitis, unspecified, K58.0 - Irritable bowel syndrome with diarrhea I have examined the patient and the H&P has been reviewed. There are no clinical changes since date of exam.
--- NOTE | 2024-06-13 14:30 | COLBX_PTH ---
PATIENT: CHARLENE CARLIN LOC: EN U#:[id number] AGE/SX: 43/F ROOM: RE06/13/[address]: Dr. Unruly Toscano DO : 1980 BED: DIS: 06/13/2024 SPEC #: [id number] RECD: 06/13/24 16:57 STATUS: THOMAS BETTYE #: [id number] HERBERT: 06/13/24 14:[address]: Unruly Tsocano DEPT: SURGICAL PATHOLOGY RECD BY: Smith Garcia ENTERED: 06/14/24 10:34 SP TYPE: COLON BX OTHR DR: Dr. Shawn Shabazz MD Tissues: A - Duodenum, NOS B - Esophagus, NOS C - Cecum, NOS D - Ileum, NOS E - COLON BIOPSY F - Rectum, NOS Procedures: Special Stain Group I Surgery Specimen Level IV Alcian Blue/PAS (control) HEADER OPERATION: Colonoscopy with polypectomy and biopsy, EGD with biopsy PRE-OP DIAGNOSIS: Irritable bowel syndrome with diarrhea TISSUE SUBMITTED: A- Duodenum biopsy, B- Distal esophagus biopsy, C- Cecal polyp, D- Terminal ileum biopsy, E- Random colon biopsy, F- Rectum biopsy MICROSCOPIC DIAGNOSIS A. Duodenum, biopsy: Fragments of small intestinal mucosa, no pathologic diagnosis. Fragments of gastric mucosa with mild chronic inflammation. See comment. B. Distal esophagus, biopsy: Fragments of gastroesophageal mucosa with chronic inflammation. Intestinal metaplasia (goblet cell metaplasia) not identified. See comment. C. Cecal polyp, biopsy: Tubular adenoma.D. Terminal ileum, biopsy: Fragments of small intestinal mucosa, no pathologic diagnosis. E. Colon, random biopsy: Fragments of colonic mucosa, no pathologic diagnosis. F. Rectum, biopsy: Fragments of colonic mucosa, no pathologic diagnosis. 06/15/2024 COMMENT A. Immunohistochemistry for H. pylori can be performed if clinically indicated. Please notify the laboratory if it is needed. B. Alcian blue/PAS stain with matched control is used in the evaluation of the specimen. MICROSCOPIC DESCRIPTION Slides are reviewed. GROSS DESCRIPTION A. Received in fixative is one container labeled with the patient's name and designated Duodenum biopsy. The specimen consists of multiple irregular fragments of light murphy soft tissue that in aggregate measure 2.0 x 0.5 x 0.1 cm. The specimen is totally submitted in one cassette. B. Received in fixative is one container labeled with the patient's name and designated Distal esophagus biopsy. The specimen consists of multiple irregular fragments of light murphy soft tissue that in aggregate measure 0.6 x 0.3 x 0.1 cm. The specimen is totally submitted in one cassette. C. Received in fixative is one container labeled with the patient's name and designated Cecal polyp biopsy. The specimen consists of one irregular fragment of light murphy soft tissue that measures 0.3 x 0.3 x 0.1 cm. The specimen is totally submitted in one cassette. D. Received in fixative is one container labeled with the patient's name and designated Terminal ileum biopsy. The specimen consists of two irregular fragments of light murphy soft tissue that in aggregate measure 0.6 x 0.4 x 0.1 cm. The specimen is totally submitted in one cassette. E. Received in fixative is one container labeled with the patient's name and designated Random colon biopsy. The specimen consists of multiple irregular fragments of light murphy soft tissue that in aggregate measure 1.5 x 0.5 x 0.1 cm. The specimen is totally submitted in one cassette. F. Received in fixative is one container labeled with the patient's name and designated Rectum biopsy. The specimen consists of multiple irregular fragments of light murphy soft tissue that in aggregate measure 1.0 x 0.2 x 0.1 cm. The specimen is totally submitted in one cassette. SJ.mr 06/14/2024 TC:3 CPT:05000c9,72335
--- NOTE | 2024-06-13 15:40 | OP.CCLET_ITS ---
06/13/2024 John Shabazz [address] [place] [address] Re : Upper GI endoscopy procedure for Michelle Garcia Dear Dr. Shabazz This procedure was performed on Thursday, June 13, 2024. 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 Biopsied. - Hiatal hernia. - Bile gastritis. Biopsied. - Erythematous duodenopathy. Biopsied. Recommendations : - Discharge patient to home. - Resume previous diet. - Continue present medications. - Await pathology results. My findings are described in the full procedure note, which is enclosed. If I can be of further assistance, please feel free to contact me at . Sincerely, Unruly Toscano, 06/13/2024 3:40:18 PM This report has been signed electronically.
--- NOTE | 2024-06-13 15:40 | OP.EGD_ITS ---
Patient Name: Michelle Garcia Procedure Date: 06/13/2024 2:59 PM Date of : 1980 Age: 43 Procedure: Upper GI endoscopy Indications: Epigastric abdominal pain Providers: Unruly Toscano DO Referring MD: Unruly Toscano DO Medicines: Monitored Anesthesia Care Patient Profile: This is a 43 year old female. Refer to note in patient chart for documentation of history and physical. Patient has symptoms of chronic abdominal cramping, chronic epigastric abdominal pain and chronic dyspepsia. Complications: No immediate complications. Procedure: Pre-Anesthesia Assessment: - Prior to the procedure, a History and Physical was performed, and patient medications and allergies were reviewed. The patient is competent. The risks and benefits of the procedure and the sedation options and risks were discussed with the patient. All questions were answered and informed consent was obtained. Patient identification and proposed procedure were verified by the physician in the pre-procedure area. Mental Status Examination: alert and oriented. Airway Examination: normal oropharyngeal airway and neck mobility. Respiratory Examination: clear to auscultation. CV Examination: normal. Prophylactic Antibiotics: The patient does not require prophylactic antibiotics. Prior Anticoagulants: The patient has taken no anticoagulant or antiplatelet agents. ASA Grade Assessment: II - A patient with mild systemic disease. After reviewing the risks and benefits, the patient was deemed in satisfactory condition to undergo the procedure. The anesthesia plan was to use moderate sedation / analgesia (conscious sedation). Immediately prior to administration of medications, the patient was re-assessed for adequacy to receive sedatives. The heart rate, respiratory rate, oxygen saturations, blood pressure, adequacy of pulmonary ventilation, and response to care were monitored throughout the procedure. The physical status of the patient was re-assessed after the procedure. After obtaining informed consent, the endoscope was passed under direct vision. Throughout the procedure, the patient's blood pressure, pulse, and oxygen saturations were monitored continuously. The Colonoscope was introduced through the mouth, and advanced to the second part of duodenum. The upper GI endoscopy was accomplished without difficulty. The patient tolerated the procedure well. Scope In: 3:10:51 PM Scope Out: 3:16:59 PM Total Procedure Duration Time 0 hours 6 minutes 8 seconds Findings: There were esophageal mucosal changes suspicious for short-segment Gage's esophagus present in the lower third of the esophagus. The maximum longitudinal extent of these mucosal changes was 2 cm in length. Mucosa was biopsied with a cold forceps for histology in a targeted manner at intervals of 1 cm in the lower third of the esophagus. One specimen bottle was sent to pathology. Verification of patient identification for the specimen was done. Estimated blood loss was minimal. A hiatal hernia was present. Diffuse moderate inflammation characterized by erythema and linear erosions was found in the entire examined stomach. Biopsies were taken with a cold forceps for histology. Verification of patient identification for the specimen was done. Estimated blood loss was minimal. Biopsies were taken with a cold forceps for Helicobacter pylori testing. Verification of patient identification for the specimen was done. Estimated blood loss was minimal. Patchy moderately erythematous mucosa without active bleeding and with no stigmata of bleeding was found in the first portion of the duodenum and in the second portion of the duodenum. Biopsies were taken with a cold forceps for histology. Verification of patient identification for the specimen was done. Estimated blood loss was minimal. 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 Biopsied. - Hiatal hernia. - Bile gastritis. Biopsied. - Erythematous duodenopathy. Biopsied. Recommendation: - Discharge patient to home. - Resume previous diet. - Continue present medications. - Await pathology results. Procedure Code(s): --- Professional --- 36320, Esophagogastroduodenoscopy, flexible, transoral; with biopsy, single or multiple CPT copyright 2021 [employer]. All rights reserved. The codes documented in this report are preliminary and upon university manager review may be revised to meet current compliance requirements. Unruly Toscano DO 06/13/2024 3:40:18 PM This report has been signed electronically. Number of Addenda: 0 Note Initiated On: 06/13/2024 2:59 PM
--- NOTE | 2024-06-13 15:44 | PCM.POST.ANE ---
Anesthesia: Postop Eval I Current Vital Signs Temperature: 97 F Pulse Rate: 67 Blood Pressure: 100/60 Respiratory Rate: 14 Pulse Ox: 99 Oxygen Delivery Method: Room Air Assessment Airway patent: Yes Spontaneous unlabored respirations: Yes Mental status: Awake and Calm nausea: No Vomiting: No Anesthesia Complication: No Fluid Hydration Crystalloid volume administer (ml): 60 Total IV fluid infused: 60 Progress Note Anesthesia document: Postop Eval 1 completed: Yes
--- NOTE | 2024-06-13 15:45 | OP.COLON_ITS ---
Patient Name: Michelle Garcia Procedure Date: 06/13/2024 3:17 PM Date of : 1980 Age: 43 Procedure: Colonoscopy Indications: Clinically significant diarrhea of unexplained origin Providers: Unruly Toscano DO Referring MD: Unruly Toscano DO Medicines: Monitored Anesthesia Care Patient Profile: This is a 43 year old female. Refer to note in patient chart for documentation of history and physical. Patient has symptoms of chronic abdominal cramping, chronic epigastric abdominal pain and chronic dyspepsia. Last Colonoscopy: date unknown. Unable to locate last colonoscopy report. Complications: No immediate complications. Procedure: Pre-Anesthesia Assessment: - Prior to the procedure, a History and Physical was performed, and patient medications and allergies were reviewed. The patient is competent. The risks and benefits of the procedure and the sedation options and risks were discussed with the patient. All questions were answered and informed consent was obtained. Patient identification and proposed procedure were verified by the physician in the pre-procedure area. Mental Status Examination: alert and oriented. Airway Examination: normal oropharyngeal airway and neck mobility. Respiratory Examination: clear to auscultation. CV Examination: normal. Prophylactic Antibiotics: The patient does not require prophylactic antibiotics. Prior Anticoagulants: The patient has taken no anticoagulant or antiplatelet agents. ASA Grade Assessment: II - A patient with mild systemic disease. After reviewing the risks and benefits, the patient was deemed in satisfactory condition to undergo the procedure. The anesthesia plan was to use moderate sedation / analgesia (conscious sedation). Immediately prior to administration of medications, the patient was re-assessed for adequacy to receive sedatives. The heart rate, respiratory rate, oxygen saturations, blood pressure, adequacy of pulmonary ventilation, and response to care were monitored throughout the procedure. The physical status of the patient was re-assessed after the procedure. After I obtained informed consent, the scope was passed under direct vision. Throughout the procedure, the patient's blood pressure, pulse, and oxygen saturations were monitored continuously. The Colonoscope was introduced through the anus and advanced to the terminal ileum. The colonoscopy was performed without difficulty. The patient tolerated the procedure well. The quality of the bowel preparation was adequate. The terminal ileum, ileocecal valve, appendiceal orifice, and rectum were photographed. Scope In: 3:19:10 PM Scope Withdrawal Time 0 hours 11 minutes 36 seconds Scope Out: 3:33:15 PM Total Procedure Duration Time 0 hours 14 minutes 5 seconds Findings: The perianal exam was abnormal because there was very poor rectal tone. A 5 mm polyp was found in the cecum. The polyp was sessile. The polyp was removed with a jumbo cold forceps. Resection and retrieval were complete. Verification of patient identification for the specimen was done. Estimated blood loss was minimal. An area of mildly congested mucosa was found in the recto-sigmoid colon, in the sigmoid colon, in the transverse colon and in the cecum. Biopsies were taken with a cold forceps for histology. Verification of patient identification for the specimen was done. Estimated blood loss was minimal. The terminal ileum appeared normal. Biopsies were taken with a cold forceps for histology. Verification of patient identification for the specimen was done. Estimated blood loss was minimal. Impression: - Abnormal perianal exam. - One 5 mm polyp in the cecum, removed with a jumbo cold forceps. Resected and retrieved. - Congested mucosa in the recto-sigmoid colon, in the sigmoid colon, in the transverse colon and in the cecum. Biopsied. - The examined portion of the ileum was normal. Biopsied. Recommendation: - Discharge patient to home. - Resume previous diet. - Continue present medications. - Await pathology results. - Repeat colonoscopy in 5 years for surveillance. Procedure Code(s): --- Professional --- 27845, Colonoscopy, flexible; with biopsy, single or multiple CPT copyright 2021 [employer]. All rights reserved. The codes documented in this report are preliminary and upon acrylic fabricator review may be revised to meet current compliance requirements. Unruly Toscano DO 06/13/2024 3:45:22 PM This report has been signed electronically. Number of Addenda: 0 Note Initiated On: 06/13/2024 3:17 PM
--- NOTE | 2024-06-13 15:46 | OP.CCLET_ITS ---
06/13/2024 John Shabazz [address] [place] [address] Re : Colonoscopy procedure for Michelle Garcia Dear Dr. Shabazz This procedure was performed on Thursday, June 13, 2024. My impressions and recommendations are as follows: Impressions : - Abnormal perianal exam. - One 5 mm polyp in the cecum, removed with a jumbo cold forceps. Resected and retrieved. - Congested mucosa in the recto-sigmoid colon, in the sigmoid colon, in the transverse colon and in the cecum. Biopsied. - The examined portion of the ileum was normal. Biopsied. Recommendations : - Discharge patient to home. - Resume previous diet. - Continue present medications. - Await pathology results. - Repeat colonoscopy in 5 years for surveillance. My findings are described in the full procedure note, which is enclosed. If I can be of further assistance, please feel free to contact me at . Sincerely, Unruly Toscano, 06/13/2024 3:45:22 PM This report has been signed electronically.
--- NOTE | 2024-06-13 17:17 | PCM.POSTANE2 ---
Anesthesia Postop Eval I Sum Postop Eval Completion status Anesthesia document: Postop Eval 1 completed: Yes Anesthesia Postop Eval I Summary Anesthesia Postop Eval I Summary: Anesthesia Postop Eval I: Assessment Summary Airway patent Yes 06/13/24 15:45 [email or web address] Spontaneous unlabored Yes 06/13/24 15:45 [email or web address] respirations Mental status Awake,Calm 06/13/24 15:45 [email or web address] nausea No 06/13/24 15:45 [email or web address] Vomiting No 06/13/24 15:45 [email or web address] Anesthesia Postop Eval I: Fluid Summary Crystalloid volume administer 60 06/13/24 15:45 [email or web address] (ml) Colloids volume administered ( ml) Blood Product volume administered (ml) Total IV fluid infused 60 06/13/24 15:45 [email or web address] Anesthesia Postop Eval I: Summary Notes Anesthesia Complication No 06/13/24 15:45 [email or web address] Anesthesia Complication Comment: Post-operative progress note Anesthesia: Postop Eval II Evaluation Mental status: Awake Pain Level: 0 nausea: No Vomiting: No
== END 2024-06-13 16:28 | disposition home or self-care (01) ==
LOC: EN 13:05 → AC 13:07
PROVIDERS: PCP Family Medicine; Referring Provider Family Medicine; Visit Provider Internal Medicine Gastroenterology
PROC: 0DJD8ZZ Inspection of Lower Intestinal Tract, Via Natural or Artificial Opening Endoscopic (ICD-10-PCS; CPT 45378; principal; 2024-06-13 14:25)
DX: K29.70 Gastritis, unspecified, without bleeding (principal); K31.89 Other diseases of stomach and duodenum; K44.9 Diaphragmatic hernia without obstruction or gangrene; K58.0 Irritable bowel syndrome with diarrhea; D12.0 Benign neoplasm of cecum; E03.9 Hypothyroidism, unspecified; Z79.890 Hormone replacement therapy
CPT/HCPCS: 43239; 45380; 36415; 80053; 82784; 82785; 83516; 83615; 84165; 84439; 84443; 84481; 85652; 86003; 86005; 86036; 86037; 86140; 86225; 86235; 86255; 86334; 86671; 88305; 88312; A4216; J2405

== ENCOUNTER → 2024-06-23 | Outpatient (CLI) | payer OTHER, SELFPAY ==
--- NOTE | 2024-06-23 11:50 | NM_ITS ---
CLINICAL: 43-year-old female with history of abdominal pain and early satiety. SEMI-SOLID PHASE 99m Tc SULFUR COLLOID GASTRIC EMPTYING STUDY COMPARISON: Abdominal ultrasound report 06/05/2024, CT of the abdomen-pelvis report 06/06/2024 FINDINGS: The patient was administered 1.1 mCi of 99m Tc sulfur colloid mixed with oatmeal and consumed per os. Image acquisitions in the anterior-posterior projections were obtained for 60 minutes. There is prompt visualization of the stomach. There is no gastroesophageal reflux identified. The T ? raw data emptying was calculated to be 46.84 minutes, (Normal: 12-56 minutes). NM/Gastric Emptying Study IMPRESSION: 1. NORMAL 99m Tc sulfur colloid semi-solid phase (oatmeal) gastric emptying imaging examination. A. There is normal and preserved semi-solid phase gastric emptying compared to normal controls. (Greg et al, J Nucl Med Tech 38: 186, 2010). Electronically Signed: Willy Glass DO at 9:32 EDT ,
== END | disposition home or self-care (01) ==
LOC: NM 11:43
PROVIDERS: PCP Family Medicine
DX: K58.0 Irritable bowel syndrome with diarrhea (principal); K31.84 Gastroparesis; R68.81 Early satiety
CPT/HCPCS: 78264; A9541

== ENCOUNTER → 2024-08-15 | Outpatient (CLI) | payer OTHER, SELFPAY ==
[2024-08-18 05:06] LABS: Calprotectin, Stool 16 ug/g (0-120)
[2024-08-18 13:06] LABS: Giardia Lamblia, Stool EIA Negative (Negative); Pancreatic Elastase, Fecal 637 (>200)
== END | disposition home or self-care (01) ==
LOC: LABSPEC 06:34
PROVIDERS: PCP Family Medicine
DX: K58.0 Irritable bowel syndrome with diarrhea (principal); K31.84 Gastroparesis
CPT/HCPCS: 82653; 83630; 83993; 87177; 87209; 87329; 87493; 87506

== ENCOUNTER → 2024-11-01 | Outpatient (CLI) | payer OTHER, SELFPAY | END | disposition home or self-care (01) | PROVIDERS: PCP Family Medicine; Referring Provider Nurse Practitioner Women's Health; Visit Provider Nurse Practitioner Women's Health | DX: R53.83 Other fatigue (principal); Z80.3 Family history of malignant neoplasm of breast | CPT/HCPCS: 36415; 82306 ==

== ENCOUNTER → 2024-11-14 | Outpatient (CLI) | payer OTHER, SELFPAY ==
--- NOTE | 2024-11-14 08:42 | US_ITS ---
PROCEDURE: BREAST LIMITED UNILATERAL 11/14/2024 REASON FOR EXAM: LEFT BREAST LUMP TECHNIQUE: Targeted left breast ultrasound. COMPARISON: Bilateral mammograms of the same date. FINDINGS: Left breast ultrasound was targeted to the area of lumpy consistency in the upper-outer quadrant of the left breast.. The breast tissue appears sonographically normal. No cyst, solid mass, or suspicious shadowing. US/Breast Limited Unilateral IMPRESSION: Impression: Negative left breast sonogram. Birads: 1, negative. Reading Location: [place] [id number]
--- NOTE | 2024-11-14 08:42 | BI_ITS ---
EXAM: DIAG MAMM W/CAD, BILAT 11/14/2024 CLINICAL HISTORY: F, Age 44 y/o , LEFT BREAST LUMP noticed recently but not present today. TECHNIQUE: Bilateral Diagnostic digital breast tomosynthesis with 2D and 3D images. Computer aided detection. COMPARISON: Prior exam(s) dated: September 23, 2023. FINDINGS: TISSUE DENSITY: ACR category C. breasts are heterogeneously dense, which limits the sensitivity of mammography. Bilateral Breast Mammographic Findings: No significant masses, calcifications or other abnormalities are identified. As the breast lumpiness is not currently present per patient palpation and technologist palpation of the area, ultrasound examination was deferred. BI/DIAG MAMM W/CAD, BILAT IMPRESSION: Right Breast: BIRADS 1 NEGATIVE. Left Breast: BIRADS 1 NEGATIVE. OVERALL FINAL ASSESSMENT: BIRADS 1 NEGATIVE. RECOMMENDATION: Routine annual follow-up in 1 Year A letter with findings and recommendations will be mailed to the patient. Reading Location: [place] [address]
== END | disposition home or self-care (01) ==
LOC: OPBI 08:41
PROVIDERS: PCP Family Medicine; Referring Provider Nurse Practitioner Family; Visit Provider Nurse Practitioner Family
DX: N63.21 Unspecified lump in the left breast, upper outer quadrant (principal)
CPT/HCPCS: 76642; 77062; 77066; G0279

== ENCOUNTER → 2024-11-28 | Outpatient (CLI) | payer OTHER, SELFPAY ==
--- NOTE | 2024-11-28 11:16 | MRI_ITS ---
PROCEDURE: BREAST BILATERAL W/O AND W 11/28/2024 REASON FOR EXAM: DENSE BREASTS/SIGNIFICANT FAMILY HX/LEFT LUMP 44-year-old female presents for diagnostic MRI of the breast due to left breast lump, dense breast tissue and strong family history of breast cancer. Family history of breast cancer in 2 maternal aunts at age 45 and 52, as well as a paternal grandmother at age 48. Personal history of bilateral breast reduction. TECHNIQUE: Bilateral breast MRI using a dedicated bilateral breast coil before and following intravenous contrast. Images reviewed with subtraction and DynaCAD. CONTRAST: 15 IV Clariscan COMPARISON: Mammogram and ultrasound 11/14/2024, mammogram 09/23/2023 FINDINGS: Amount of Fibroglandular Tissue: Extreme fibroglandular tissue. Background Parenchymal Enhancement: Minimal RIGHT Breast: No suspicious mass or non-mass enhancement. LEFT Breast: No suspicious mass or non-mass enhancement. Other Findings: No suspicious axillary or internal mammary lymph nodes. Visualized portions of the thoracic and abdominal viscera are unremarkable. MRI/Breast Bilateral W/O and W IMPRESSION: There is no MR evidence of malignancy in either breast. OVERALL BI-RADS CATEGORY: BI-RADS 1: NEGATIVE Reading Location: [id number]
== END | disposition home or self-care (01) ==
LOC: MRI 11:09
PROVIDERS: PCP Family Medicine; Referring Provider Surgery; Visit Provider Surgery
DX: N63.21 Unspecified lump in the left breast, upper outer quadrant (principal); R92.30 Dense breasts, unspecified; Z80.3 Family history of malignant neoplasm of breast
CPT/HCPCS: 77049; A9575; A4216; C8908

== ENCOUNTER → 2025-01-03 | Outpatient (CLI) | payer OTHER, SELFPAY ==
--- NOTE | 2025-01-03 12:03 | MRI_ITS ---
EXAM: ENTEROGRAPHY ABD/PEL 01/03/2025 CLINICAL HISTORY: K52.9 - NONINFECTIVE GASTROENTERITIS AND COLITIS, UNSPECIFIED. Abdominal pain. TECHNIQUE: MRI of the abdomen and pelvis was performed. Multiplanar and multisequence images were obtained without and with intravenous gadolinium contrast.. MRI enterography. 12 mL of gadolinium contrast administered intravenously. COMPARISON: CT abdomen 06/06/2025 FINDINGS: Liver: Visualized portions of the liver appear normal. Gallbladder: Numerous filling defects within the gallbladder lumen consistent with cholelithiasis. No pericholecystic fluid or edema. No gallbladder wall thickening. No biliary ductal dilatation. Spleen: Spleen appears normal. Pancreas: Pancreas appears normal. No pancreatic ductal dilatation. Adrenal glands: Adrenal glands appear normal. Kidneys: Kidneys appear normal. No hydronephrosis. No enhancing or suspicious renal lesions. Retroperitoneum: No retroperitoneal hemorrhage. No aortic abdominal aneurysm. GI: No evidence of bowel obstruction. No abnormal bowel wall thickening or abnormal enhancement. No evidence of active enteritis or colitis. Pelvis: Urinary bladder appears normal. Status post hysterectomy. Osseous: No acute osseous abnormality seen. Additional: No fluid collection. MRI/Enterography Abd/Pel IMPRESSION: 1. No acute findings. 2. Cholelithiasis without evidence of acute cholecystitis. No biliary ductal dilatation. 3. No abnormal bowel wall thickening or enhancement. No evidence of active en teritis or colitis. 4. Status post hysterectomy Reading Location: [facility]
[2025-01-03 12:30] VITALS: BP 115/71; PULSE 68; RESP 16; O2SAT 98; BMI 19.7
[2025-01-03] MEDS: 0.9% Saline Lock 10 ML Syringe IV (14:03)
[2025-01-03] MEDS: Glucagon 1 MG/ML Syringe IV (14:03)
[2025-01-03 14:23] VITALS: BP 151/66; PULSE 77; RESP 16; O2SAT 98
== END | disposition home or self-care (01) ==
LOC: MRI 12:00
PROVIDERS: PCP Family Medicine; Referring Provider Internal Medicine Gastroenterology; Visit Provider Internal Medicine Gastroenterology
DX: K52.9 Noninfective gastroenteritis and colitis, unspecified (principal)
CPT/HCPCS: 74183; 96374; A9575; A4216; J1610

== ENCOUNTER → 2025-01-09 | Outpatient (CLI) | payer OTHER, SELFPAY ==
--- NOTE | 2025-01-09 11:19 | RAD_ITS ---
PROCEDURE: CERV SPINE 2 OR 3 VIEWS 01/09/2025 REASON FOR EXAM: NECK PAIN TECHNIQUE: 3 views of the cervical spine. AP, lateral and open-mouth odontoid COMPARISON: None available FINDINGS: Cervical spine is visualized on the lateral view from the skull base to T1. Straightening may represent positioning or spasm. No prevertebral soft tissue swelling. No fracture or malalignment. The disc spaces appear within limits. The visualized apices appear clear. RAD/Cerv Spine 2 or 3 Views IMPRESSION: Straightening may represent positioning or spasm. No prevertebral soft tissue s welling. Reading Location: [id number]
--- NOTE | 2025-01-09 11:19 | RAD_ITS ---
PROCEDURE: L/S SPINE MIN 4 VIEWS 01/09/2025 REASON FOR EXAM: BACK PAIN TECHNIQUE: Four views; AP, bilateral oblique and lateral COMPARISON: None available FINDINGS: 5 [id number] lumbar vertebral type bodies identified. No fracture or malalignment. No evidence of spondylolysis. Disc spaces appear within limits. RAD/L/S Spine Min 4 Views IMPRESSION: Study appears within limits. Reading Location: [id number]
== END | disposition home or self-care (01) ==
LOC: MTRAD 11:19
PROVIDERS: PCP Family Medicine; Referring Provider Chiropractor; Visit Provider Chiropractor
DX: M54.2 Cervicalgia (principal); M54.50 Low back pain, unspecified
CPT/HCPCS: 72040; 72110

== ENCOUNTER 2025-01-19 10:26 | Day surgery (SDC) | payer OTHER, SELFPAY ==
--- NOTE | 2025-01-10 11:40 | PAT.ANESEVAL ---
Pre-Assessment Diagnosis/Proposed Procedure Planned Operative Procedure(s): LEFT BREAST U/S WIRE LOCALIZATION EXCISIONAL BIOPSY Anesthesia History Anesthesia History - team physician: Anesthesia History - team physician Hx Hospitalization No 01/10/25 11:26 Any Problems With Anesthesia No 01/10/25 11:26 Cholinesterase deficiency No 01/10/25 11:26 You/Your Family Experience No 01/10/25 11:26 fever (hyperthermia) with Relationship Recent Exposure to Contagious No 06/13/24 13:21 Disease Does patient have nerve No 01/10/25 11:26 stimulator Patient instructed to have device shut off --Does patient have Pacemaker or ICD? When Was Last Pacemaker Check QUESTION #4 FULL TEXT: You/Your Family Experience fever (hyperthermia) with Anesthesia Last Oral Intake Last Oral intake: Last Oral Intake NPO since Meds taken in AM with sips of water? Meds patient instructed to take am of surgery PONV PONV - team physician: PONV - team physician Female Yes 01/10/25 11:26 HX of Motion Sickness Yes 01/10/25 11:26 HX of N/V After Surgery No 01/10/25 11:26 Non-Smoker Yes 01/10/25 11:26 Duration of Surgery greater No 01/10/25 11:26 than 60 minutes Number of Risk Factors 3 01/10/25 11:26 PONV Score Moderate Risk 01/10/25 11:26 Height & Weight Height & Weight: Anesthesia: Height & Weight Height 5 ft 4 in 12/25/24 15:07 Respiratory Assessment Respiratory Assessment - team physician: Respiratory Tract Infection Hx - team physician Hx Respiratory Tract Infection No 01/10/25 11:26 STOP Sleep Apnea STOP Sleep Apnea - team physician: STOP Sleep Apnea - team physician Hx Hypertension No 01/10/25 11:26 Hx Sleep Apnea No 01/10/25 11:26 CPAP No 06/13/24 15:40 BIPAP No 03/20/19 11:18 Do you snore loudly (louder No 01/10/25 11:26 than talking or can be heard Do you often feel tired/ Yes 01/10/25 11:26 fatigued/ sleepy during daytime? Has anyone observed you stop No 01/10/25 11:26 breathing during sleep? STOP Results Negative 01/10/25 11:26 QUESTION #5 FULL TEXT : Do you snore loudly (louder than talking or can be heard through closed doors)? Tobacco Use History Tobacco Use History - team physician: Tobacco Use History - team physician Tobacco Use Smoking Status Never smoker 01/10/25 11:26 Hx Tobacco Use No 01/10/25 11:26 Years Smoking Packs Smoked per Day Smoking Cessation Date was within the last 15 years Hx Smoking Cessation Date Hx Smoking Cessation Counseling Hematologic Medial History Hematologic Hx - team physician: Hematologic Medical Hx - documentation nurse Hx of Blood Transfusion No 01/10/25 11:26 Hx of Transfusion in last 3 No 01/10/25 11:26 Months Date of Last Transfusion (if within last 3 months) Ever experience any problems No 01/10/25 11:26 with transfusion(s)? Specify any problems Hx of Preganancy in last 3 No 01/10/25 11:26 Months Nurse Filling Out Transfusion DSCHRIBER 01/10/25 11:26 & Questions: Date: 01/10/25 01/10/25 11:26 Time: 11:27 01/10/25 11:26 Patient unable to answer at this time (ie. confused, unrespo /Reproduction History /Reproductive History - team physician: /Reproductive Hx- team physician Hx Now No 01/10/25 11:26 Gestational Age (in weeks): EDC: Hx Hx Para Hx Section SAB No 01/10/25 11:26 PFSH Medical History (Updated 01/10/25 @ 11:30 by Nhi Alvarez) Depression Anxiety Injury of head and neck History of hiatal hernia History of IBS History of diverticulitis Nausea Non-smoker History of TIA (transient ischemic attack) History of cervical dysplasia Peritonitis Back pain Thyroid disease Chest pain Migraines Hay fever Fatigue Home Medications ?Medication ?Instructions ?Recorded ?Last Taken ?Type multivitamin 1 cap PO DAILY 04/22/18 Unknown History cholecalciferol (vitamin D3) 50 50 mcg PO QDAY 05/16/24 Unknown History mcg (2,000 unit) capsule estradiol 2 mg tablet 2 mg PO QDAY 05/16/24 Unknown History levothyroxine 50 mcg tablet 50 mcg PO QDAY 05/16/24 Unknown History lisdexamfetamine 30 mg capsule 30 mg PO QAM 05/16/24 Unknown History (Vminh) tizanidine 4 mg capsule 4 mg PO QHS 05/16/24 Unknown History mbmxpympde-fajsqemkwixfu-cdzzseal 1 tab PO QHS Headache 06/12/24 Unknown History 50 mg-325 mg-40 mg tablet diphenhydramine HCl 25 mg capsule 25 mg PO QHS 12/25/24 Unknown History (Benadryl) magnesium 100 mg tablet 1,140 mg PO DAILY 01/10/25 Unknown History Allergy/AdvReac Type Severity Reaction Status Date / Time suture Allergy Mild pus Verified 01/10/25 11:15 tramadol (From Ultram) AdvReac Intermediate hallucinati Verified 01/10/25 11:15 ons shellfish derived AdvReac Mild Hives Verified 01/10/25 11:15 hydrocodone bitartrate (From AdvReac Vomiting Verified 01/10/25 11:15 Vicodin) Family History Daughter Asthma Father Hypertension Mother Hypertension Thyroid disorder Diabetes Grandmother Breast cancer Cancer omentum Osteoporosis Aunt Breast cancer Aunt Breast cancer Surgical History (Updated 01/10/25 @ 11:30 by Nhi Alvarez) History of esophagogastroduodenoscopy (EGD) Hx of resection of rectum History of hysterectomy History of appendectomy History of colonoscopy (~2008) History of dilation and curettage (~2014) History of bilateral breast reduction surgery (~2017) History of loop electrical excision procedure (LEEP) (~2013) History of ovarian cystectomy H/O oophorectomy Social History household members: spouse current occupational status: employed current occupation: [employer]- [place] Smoking Status: Never smoker alcohol intake: never substance use type: does not use seatbelt use: always do you feel safe at home: Yes additional social history: - Rashard Audit: Pertinent Findings Pertinent Findings EKG Perinent findings: 04/27/2018. Sinus rhythm with first-degree AV block. 72 bpm. Otherwise normal EKG Recommendation Anesthesia Recommendation Anesthesia recommendation: OPTIMIZED for anesthesia
[2025-01-19] VITALS (10 sets, daily range): BP systolic 109–124; BP diastolic 66–80; PULSE 55–77; RESP 16; TEMP 36.2–37.4; O2SAT 95–100; BMI 20.4
--- NOTE | 2025-01-19 10:01 | HP.PCM_ITS ---
History and Physical Date of Admission: 01/19/25 Date of Service: 12/25/24 MR#: [id number] Acct: [id number] Name: CHARLENE CARLIN Rep #: [id number] : 1980 Provider: Dr. Diann Perez MD Age/Sex: 44/F Location: [facility] Status: Signed Intake Vital Signs 11/22/2508:46 12/25/2514:07 Height 5 ft 4 in 5 ft 4 in Weight: 124 lb 120 lb BMI 21.2 20.5 BP 124/86 H 110/68 Blood Pressure Location Rt brachial Rt brachial Position Sitting Sitting Respiration 17 17 Pulse 71 64 Pulse Source Monitor Monitor Pulse Oximetry (%) 100 99 Oxygen Delivery Method room air room air Intake Visit Reasons: DISCUSS MRI RESULTS & OPTIONS Chief Complaint: discuss MRI results/ options Is patient in pain?: No Allergies suture Allergy (Mild, Verified 12/25/24 15:08) pustramadol (From Ultram) Adverse Reaction (Intermediate, Verified 12/25/24 15:08) hallucinationsshellfish derived Adverse Reaction (Mild, Verified 12/25/24 15:08) Hiveshydrocodone bitartrate (From Vicodin) Adverse Reaction (Verified 12/25/24 15:08) Vomiting Medications ?Medication ?Instructions ?Recorded ?Confirmed ?Type multivitamin 1 cap PO DAILY 04/22/18 12/25/24 History alprazolam 0.25 mg tablet (Xanax) 0.5 mg PO BID-TID PRN Anxiety 06/06/20 12/25/24 History cholecalciferol (vitamin D3) 50 50 mcg PO QDAY 05/16/24 12/25/24 History mcg (2,000 unit) capsule estradiol 2 mg tablet 2 mg PO QDAY 05/16/24 12/25/24 History levothyroxine 50 mcg tablet 50 mcg PO QDAY 05/16/24 12/25/24 History lisdexamfetamine 30 mg capsule 30 mg PO QAM 05/16/24 12/25/24 History (Vyvanse) tizanidine 4 mg capsule 4 mg PO QHS 05/16/24 12/25/24 History pttvzrpwjd-oettesterryob-aoqwuivb 1 tab PO QHS Headache 06/12/24 12/25/24 History 50 mg-325 mg-40 mg tablet diphenhydramine HCl 25 mg capsule 25 mg PO QHS 12/25/24 12/25/24 History (Benadryl) REPLACED BY [facility] Medical History Depression Anxiety Injury of head and neck History of hiatal hernia History of IBS History of diverticulitis Nausea Non-smoker Anxiety and depression History of TIA (transient ischemic attack) History of cervical dysplasia Peritonitis Back pain Thyroid disease Chest pain Migraines Hay fever Fatigue Surgical History Hx of resection of rectum History of hysterectomy History of appendectomy History of colonoscopy (~2008) History of dilation and curettage (~2014) History of bilateral breast reduction surgery (~2017) History of loop electrical excision procedure (LEEP) (~2013) History of ovarian cystectomy H/O oophorectomy Family History Daughter AsthmaFather HypertensionMother Hypertension Thyroid disorder DiabetesGrandmother Breast cancer Cancer omentum OsteoporosisAunt Breast cancerAunt Breast cancer Social History household members: spouse current occupational status: employed current occupation: [employer]- [place] Smoking Status: Never smoker alcohol intake: never substance use type: does not use seatbelt use: always do you feel safe at home: Yes additional social history: - Rashard HPI HPI HPI: 44-year-old female came in for follow-up after breast MRI as well as left breast lump. Patient's MRI was given a BI-RADS 1 negative. Did review with her and her . Patient still states she feels this area about 12:00 2 to 3 cm from the nipple about pea-sized. ROS General General: Yes weight change and fatigue; No appetite, colon cancer or breast cancer HEENT HEENT: Yes difficulty swallowing; No eye injury, eye surgery, swollen glands or hoarseness Endo Endocrine: Yes thyroid disease; No diabetes mellitus, thyroid cancer, Hair loss, heat intolerance or cold intolerance Skin Skin: No rash or changing moles Breast Breast: Yes left breast lump; No right breast lump, nipple discharge, breast pain, abnormal mammogram, abnorma l US or breast enlargement Musc Musculoskeletal: Yes back problems; No arthritis, rheumatoid arthritis, gout or joint pain Cardio Cardiovascular: No murmur, pacemaker, heart disease, atrial fibrillation, high blood pressure, heart attack, heart stent, palpitations, shortness of breath with exertion or chest pain Psych Psychiatric: No depression, anxiety or hearing voices Resp Respiratory: No shortness of breath, No sleep apnea, No cough, No COPD, No asthma, No emphysema and No wheezing Gastro Gastrointestinal: Yes abdominal pain, Yes nausea or vomiting, Yes diarrhea, No constipation, No blood in stool, Yes acid reflux, No hemorrhoids, Yes ulcers, Yes gallbladder problem and No black,tarry stools [place] Hematologic: No blood thinners, No blood disorders, No bleeding, No anemia and No blood clots Neuro Neurologic: Yes numbness and Yes tingling Exam Const General: cooperative, healthy appearing and no acute distress [facility] Head: normal to inspection Chest Other: Breast inspection: Symmetric bilaterally-bilateral breast reduction incisions well-healed Right breast: Fibroglandular tissue, no masses on exam, no nipple discharge or pain, no change in overlying skin Left breast: Fibroglandular tissue, palpable nodule at 12:00 2 to 3 cm from the nipple, no nipple discharge or pain, no change in overlying skin No axillary or supraclavicular adenopathy bilaterally Resp Effort & Inspection: normal respiratory effort Cardio Rate: regular rate GI Inspection: non-distended Palpation: soft Skin General: no rashes or lesions noted Neuro General: patient oriented x3 Extrem General: no clubbing, cyanosis or edema Psych Affect: normal affect Assessment and Plan Assessment and Plan (1) Left breast mass: Status: Acute Qualifiers: Breast mass location: upper outer quadrant Qualified Code(s): N63.21 - Unspecified lump in the left breast, upper outer quadrant Comment: imaging (2) Family history of breast cancer: Status: Acute Comment: MGM and 2 aunts. Empower test negative. Overall risk 28%:enc yearly mammogram and breast MRI alternating (3) At high risk for breast cancer: Status: Acute Comment: 28.2% [facility] lifetime breast cancer risk Plan On exam I am able to feel the area of concern. I do believe would be able to do an ultrasound wire localization of this area and have it removed. On bedside ultrasound and kind to see an area but it is not easy to see-- not sure would be enough tissue to get a great answer with a percutaneous biopsy. Patient and her are agreeable with ultrasound guided wire localization left excisional breast biopsy. Discussed procedure including but not limited to bleeding, infection, need for further surgery and cosmesis. Patient no further question this time. Diann Perez M.D. Pager: [phone] [facility] [address] [place] [address], [address] [place] [address] Office: [phone] Coding Level of Care Code Off vis,est,level 4 Diagnoses Mass of upper outer quadrant of left breast N63.21 Breast mass location: upper outer quadrant Family history of breast cancer Z80.3 At high risk for breast cancer Z91.89 12/27/24 0853 <Electronically signed by Diann Perez MD> Date Diann Perez MD
[2025-01-19] MEDS: Lactated Ringers 1,000 ML 15 ML IV (11:00)
--- NOTE | 2025-01-19 11:07 | PCM.PRE.AN2 ---
ASA Classification* ASA Classification ASA Classification: 2 Assessment & Plan Anesthesia* Anesthesia Assessment Anesthesia Assessment: Discussed sedation and/or anesthesia options, risks, benefits, and alternatives with patient/parents/legal guardian/POA. Questions invited. The patient/parents/legal guardian/POA seems to understand and agrees to proceed with anesthesia plan. Reviewed the physical assessment, medical history, allergy history and patient home medications list prior to surgery/procedure/anesthetic and documented any changes. Performed airway and anesthesia risk assessments. Anesthesia Type Anesthesia Type: General History Source History Obtained from:: Patient and Chart Anesthesia Focused Assessment* Temperature: 99.4 F Pulse Rate: 67 Blood Pressure: 109/80 Respiratory Rate: 16 Pulse Ox: 100 Oxygen Delivery Method: Room Air Airway Assessment Mouth opens: >3 cm Mallampati Score: I Teeth Condition: Caps/Crowns Comment: Porcelain veneers Focused Labs Anesthesia Preop lab: CBC WBC 4.6 K/mm3 (4.4-11.0) 06/05/24 08:10 06/05/24 RBC 4.90 M/mm3 (4.2-5.4) 06/05/24 08:10 06/05/24 Hgb 13.9 g/dL (12.0-15.0) 06/05/24 08:10 06/05/24 Hct 43.8 % (37-47) 06/05/24 08:10 06/05/24 Plt Count 229 K/mm3 (150-450) 06/05/24 08:10 06/05/24 CHEMISTRY Potassium 4.2 mmol/L (3.5-5.1) 06/05/24 08:12 06/05/24 Sodium 139 mmol/L (136-145) 06/05/24 08:12 06/05/24 Phosphorus 2.9 mg/dL (2.5-4.9) 06/05/24 08:10 06/05/24 BUN 9 mg/dL (7-18) 06/05/24 08:12 06/05/24 Creatinine 0.70 mg/dL (0.55-1.02) 06/05/24 08:12 06/05/24 Glucose 86 mg/dL (74-106) 06/05/24 08:12 06/05/24 TSH 1.240 uIU/mL (0.358-3.740) 06/05/24 08:12 06/05/24 COAG PT 13.8 SECONDS (11.7-14.9) 03/27/19 09:26 03/27/19 HCG, Quant < 1 mIU/mL (<9 non-preg) 06/29/17 16:23 06/29/17 Urine Test Negative Negative 03/27/19 09:08 03/27/19 Pre-Assessment Diagnosis/Proposed Procedure Planned Operative Procedure(s): LEFT BREAST U/S WIRE LOCALIZATION EXCISIONAL BIOPSY Anesthesia History Anesthesia History - pharmacovigilance scientist: Anesthesia History - pharmacovigilance scientist Hx Hospitalization No 01/10/25 11:26 Any Problems With Anesthesia No 01/10/25 11:26 Cholinesterase deficiency No 01/10/25 11:26 You/Your Family Experience No 01/10/25 11:26 fever (hyperthermia) with Relationship Recent Exposure to Contagious No 01/19/25 10:57 Disease Does patient have nerve No 01/10/25 11:26 stimulator Patient instructed to have device shut off --Does patient have Pacemaker No 01/19/25 10:57 or ICD? When Was Last Pacemaker Check QUESTION #4 FULL TEXT: You/Your Family Experience fever (hyperthermia) with Anesthesia Last Oral Intake Last Oral intake: Last Oral Intake NPO since 07:00 01/19/25 10:57 Meds taken in AM with sips of No 01/19/25 10:57 water? Meds patient instructed to take am of surgery PONV PONV - pharmacovigilance scientist: PONV - pharmacovigilance scientist Female Yes 01/10/25 11:26 HX of Motion Sickness Yes 01/10/25 11:26 HX of N/V After Surgery No 01/10/25 11:26 Non-Smoker Yes 01/10/25 11:26 Duration of Surgery greater No 01/10/25 11:26 than 60 minutes Number of Risk Factors 3 01/10/25 11:26 PONV Score Moderate Risk 01/10/25 11:26 Height & Weight Height & Weight: Anesthesia: Height & Weight Height 5 ft 4 in 01/19/25 10:57 Weight: 54 kg 01/19/25 10:57 Body Mass Index (BMI) 20.4 01/19/25 10:57 Respiratory Assessment Respiratory Assessment - pharmacovigilance scientist: Respiratory Tract Infection Hx - pharmacovigilance scientist Hx Respiratory Tract Infection No 01/10/25 11:26 STOP Sleep Apnea STOP Sleep Apnea - pharmacovigilance scientist: STOP Sleep Apnea - pharmacovigilance scientist Hx Hypertension No 01/10/25 11:26 Hx Sleep Apnea No 01/10/25 11:26 CPAP No 06/13/24 15:40 BIPAP No 03/20/19 11:18 Do you snore loudly (louder No 01/10/25 11:26 than talking or can be heard Do you often feel tired/ Yes 01/10/25 11:26 fatigued/ sleepy during daytime? Has anyone observed you stop No 01/10/25 11:26 breathing during sleep? STOP Results Negative 01/10/25 11:26 QUESTION #5 FULL TEXT : Do you snore loudly (louder than talking or can be heard through closed doors)? Tobacco Use History Tobacco Use History - pharmacovigilance scientist: Tobacco Use History - pharmacovigilance scientist Tobacco Use Smoking Status Never smoker 01/10/25 11:26 Hx Tobacco Use No 01/10/25 11:26 Years Smoking Packs Smoked per Day Smoking Cessation Date was within the last 15 years Hx Smoking Cessation Date Hx Smoking Cessation Counseling Hematologic Medial History Hematologic Hx - pharmacovigilance scientist: Hematologic Medical Hx - geospatial image analyst Hx of Blood Transfusion No 01/10/25 11:26 Hx of Transfusion in last 3 No 01/10/25 11:26 Months Date of Last Transfusion (if within last 3 months) Ever experience any problems No 01/10/25 11:26 with transfusion(s)? Specify any problems Hx of Preganancy in last 3 No 01/10/25 11:26 Months Nurse Filling Out Transfusion DSCHRIBER 01/10/25 11:26 & Questions: Date: 01/10/25 01/10/25 11:26 Time: 11:27 01/10/25 11:26 Patient unable to answer at this time (ie. confused, unrespo /Reproduction History /Reproductive History - pharmacovigilance scientist: /Reproductive Hx- pharmacovigilance scientist Hx Now No 01/10/25 11:26 Gestational Age (in weeks): EDC: Hx Hx Para Hx Section SAB No 01/10/25 11:26 Active Medications Active Medications: Current Medications Generic Name Dose Route Start Last Admin Trade Name Freq PRN Reason Stop Dose Admin Cefazolin Sodium 2 gm/ Sodium 110 mls @ 150 mls/hr 01/19/25 12:30 Chloride IV 01/19/25 13:13 INTRAOP ONE Lactated Ringer's 1,000 mls @ 15 mls/hr 01/19/25 10:30 01/19/25 11:00 IV 15 mls/hr .Q48H CHACORTA Administration PFSH Medical History Depression Anxiety Injury of head and neck History of hiatal hernia History of IBS History of diverticulitis Nausea Non-smoker History of TIA (transient ischemic attack) History of cervical dysplasia Peritonitis Back pain Thyroid disease Chest pain Migraines Hay fever Fatigue Home Medications ?Medication ?Instructions ?Recorded ?Last Taken ?Type multivitamin 1 cap PO DAILY 04/22/18 Unknown History cholecalciferol (vitamin D3) 50 50 mcg PO QDAY 05/16/24 Unknown History mcg (2,000 unit) capsule estradiol 2 mg tablet 2 mg PO QDAY 05/16/24 Unknown History levothyroxine 50 mcg tablet 50 mcg PO QDAY 05/16/24 Unknown History lisdexamfetamine 30 mg capsule 30 mg PO QAM 05/16/24 Unknown History (Vyvanse) tizanidine 4 mg capsule 4 mg PO QHS 05/16/24 Unknown History gfjgbuqcyi-auhaexgskfdww-acjglpws 1 tab PO QHS Headache 06/12/24 Unknown History 50 mg-325 mg-40 mg tablet diphenhydramine HCl 25 mg capsule 25 mg PO QHS 12/25/24 Unknown History (Benadryl) magnesium 100 mg tablet 1,140 mg PO DAILY 01/10/25 Unknown History Allergy/AdvReac Type Severity Reaction Status Date / Time suture Allergy Mild pus Verified 01/19/25 10:56 tramadol (From Ultram) AdvReac Intermediate hallucinati Verified 01/19/25 10:56 ons shellfish derived AdvReac Mild Hives Verified 01/19/25 10:56 hydrocodone bitartrate (From AdvReac Vomiting Verified 01/19/25 10:56 Vicodin) Family History Daughter Asthma Father Hypertension Mother Hypertension Thyroid disorder Diabetes Grandmother Breast cancer Cancer omentum Osteoporosis Aunt Breast cancer Aunt Breast cancer Surgical History History of esophagogastroduodenoscopy (EGD) Hx of resection of rectum History of hysterectomy History of appendectomy History of colonoscopy (~2008) History of dilation and curettage (~2014) History of bilateral breast reduction surgery (~2017) History of loop electrical excision procedure (LEEP) (~2013) History of ovarian cystectomy H/O oophorectomy Social History household members: spouse current occupational status: employed current occupation: [employer]- [place] Smoking Status: Never smoker alcohol intake: never substance use type: does not use seatbelt use: always do you feel safe at home: Yes additional social history: - Rashard Review of Systems (Anesthesia) ROS Narrative System reviewed and no additional complaints, except as documented.
[2025-01-19] MEDS: Cefazolin 2 GM in 0.9% Normal Saline (100mL Bag) 100 ML IV (11:25)
--- NOTE | 2025-01-19 12:04 | OP.PCM_ITS ---
Operative Report (Standard) Operative Information Date of Procedure: 01/19/25 Pre-Operative Diagnosis: Left breast mass 12:00 3 cm from the nipple Post-Operative Diagnosis: Same Surgery/Procedure Performed: Ultrasound wire needle localization excisional left breast biopsy electrical and instrumentation mechanic: Yes Silk Worker: Parth Alexander Tasks completed by sales operations assistant: Opening & closing and Retracting Type of Anesthesia: General/Supplemental RN Documented Start/Stop Times: Operation Date: 01/19/25 12:30 Case Time Into Pre-Op 01/19/25 10:28 Out of Pre-Op 01/19/25 11:19 Anesthesia Start 01/19/25 11:23 Into Room 01/19/25 11:23 Procedure Start 01/19/25 11:40 Procedure End 01/19/25 12:16 Anesthesia End 01/19/25 12:23 Out of Room 01/19/25 12:23 Into Recovery 01/19/25 12:25 Procedure Start Time: 11:40 Procedure Stop Time: 12:16 Select all DRAINS/GRAFTS/IMPLANTS that apply: None Special Medications: Ancef 2 g IV x 1 Estimated Blood Loss: 5 cc Specimen collected: Yes Description of specimen(s) removed: Left breast mass 12:00 3 cm from nipple Description of surgery: Patient was brought to operating placed spine operating table. Timeout was completed verifying correct patient, procedure, site, positioning, special, prior began procedure. General anesthesia was induced. Patient's left breast was prepped draped in a sterile fashion. Ultrasound guided needle localization with Kopan needle was completed with the wire just lateral to the palpable mass. A curvilinear incision was planned in such a way as to minimize the amount of dissection to reach the mass. Flaps were raised in the location of the wire confirmed. The wire was delivered into the wound. 2 silk bwcwca-em-wmzfz stay suture was placed around the wire and used for traction. Dissection was then taken down circumferentially with electrocautery, taking care to include the entire localization needle and wide margin of grossly normal tissue. The specimen and entire localizing wire were removed. The specimen was oriented and sent to pathology. The cavity was irrigated. Hemostasis was obtained with electrocautery. The breast incision was closed with interrupted sutures of 3-0 Vicryl and subcuticular sutures of 4-0 Monocryl. No attempt was made to close the space. A dressing of fluff gauze and supportive bra placed. The patient tolerated procedure well was taken to the postanesthesia care in stable condition. Surgical Findings: See operative note Complications Complications: No
--- NOTE | 2025-01-19 12:07 | EX.PCM.DISCH ---
Discharge Instructions Diet Discharge Diet: No restrictions Activity Discharge Activity: May Not Drive (for 2-3 days or while taking narcotic pain meds.) May shower in (days): 1 Lifting Restrictions: 10 pounds for 1 week. Dressing / Incision Call your doctor if your incision/area has: Continuous Slow Oozing, Sudden Increased Bleeding, Increased Pain/ Swelling and Increased Redness Call your doctor if you observe: Fever of 101 or Higher Suture Line Care: Avoid Pulling/Pushing and Avoid Pinching/Bending Remove Dressing in: 1 day Additional Dressing/Incision Instructions:: Remove bulky dressing tomorrow. May leave op-site dressing for 3-4 days. Okay to remove Steri-Strips from the breast incision in 7 to 10 days. Follow Up Care Please Follow Up With: Diann Perez MD When: Please call [phone] for an appointment to be seen in 2 week. Test Results: Test results from this visit will be discussed in further detail at your follow-up appointment, if applicable. Discharge Plan Admission Attending Provider: Diann Perez Primary Care Provider: Shawn Shabazz Instructions Print Language: [place] Discharge Orders/Prescriptions Prescriptions: New oxycodone 5 mg capsule 5 mg PO Q6H PRN (Reason: pain) 3 Days Qty: 5 0RF Continued multivitamin capsule 1 cap PO DAILY tizanidine 4 mg capsule 4 mg PO QHS lisdexamfetamine [Vyvanse] 30 mg capsule 30 mg PO QAM estradiol 2 mg tablet 2 mg PO QDAY levothyroxine 50 mcg tablet 50 mcg PO QDAY cholecalciferol (vitamin D3) 50 mcg (2,000 unit) capsule 50 mcg PO QDAY diphenhydramine HCl [Benadryl] 25 mg capsule 25 mg PO QHS magnesium 100 mg tablet 1,140 mg PO DAILY fzfkhkavsz-rvptadoiedzlh-lvjy 1 TABLET tablet 1 tab PO QHS Referrals / Follow Up: Shawn Shabazz MD [Primary Care Provider] - Disposition Disposition (needs filled in before D/C Order can be placed): Home, Self Care
[2025-01-19] MEDS: Bupiv/Epi 0.25% 30 ML Vial (12:14)
--- NOTE | 2025-01-19 12:29 | PCM.POST.ANE ---
Anesthesia: Postop Eval I Current Vital Signs Temperature: 97.9 F Pulse Rate: 77 Blood Pressure: 121/72 Respiratory Rate: 16 Pulse Ox: 98 Oxygen Delivery Method: Room Air Assessment Airway patent: Yes Spontaneous unlabored respirations: Yes Mental status: Awake and Calm nausea: No Vomiting: No Anesthesia Complication: No Fluid Hydration Crystalloid volume administer (ml): 600 Total IV fluid infused: 600 Progress Note Anesthesia document: Postop Eval 1 completed: Yes
--- NOTE | 2025-01-19 12:30 | BRBX_PTH ---
PATIENT: CHARLENE CARLIN LOC: [facility] [place][id number] AGE/SX: 44/F ROOM: RE01/19/[address]: Dr. Diann Perez MD : 1980 BED: DIS: 01/19/2025 SPEC #: [id number] RECD: 01/19/25 12:42 STATUS: THOMAS REQ #: [id number] HERBERT: 01/19/25 12:[address]: Diann Perez DEPT: SURGICAL PATHOLOGY RECD BY: Florentin Keyes ENTERED: 01/19/25 13:11 SP TYPE: BREAST BX OTHR DR: Dr. Shawn Shabazz MD Tissues: A - Left breast, NOS Procedures: Surgery Specimen Level IV HEADER OPERATION: Breast, biopsy, ultrasound guided NL left breast excisional biopsy PRE-OP DIAGNOSIS: Left breast mass, family history of breast cancer, at high risk for breast cancer TISSUE SUBMITTED: A- Left breast mass, 12o'clock, 3cm from nipple *long stitch- middle of lateral, short stitch- middle of superior* Ischemic Time: 1 minute Fixation Time: 7 hours MICROSCOPIC DIAGNOSIS A. Left breast, mass, wire-localization excisional biopsy: * Benign breast tissue with localized dense fibrosis. MICROSCOPIC DESCRIPTION Slides are reviewed. GROSS DESCRIPTION A. Received in formalin in a container labeled with the patient's name, date of , and left breast mass, long stitch rosenbaum middle of lateral, short stitch rosenbaum middle of superior 12:00 3 cm from nipple is a 6.2 g oriented left lumpectomy specimen with a short stitch indicating superior margin and long stitch indicating lateral margin. Protruding from the lateral/inferior margin is a metal localization wire. The specimen is 3.0 cm from medial to lateral, 2.3 cm from anterior to posterior, and 2.2 cm from superior to inferior. Ink shane:Superior: BlueInferior: GreenMedial: RedLateral: YellowAnterior: OrangePosterior: Black The specimen is serially sectioned from medial to lateral into 8 slices to reveal a 1.4 x 1.0 x 0.7 cm white-pink area of dense and rubbery probable fibrous tissue, within slices 1-2. This area abuts the medial and anterior margins. The remaining cut surfaces exhibit an ill-defined 1.4 x 1.0 x 1.0 cm area of hemorrhage within slices 3-8. This appears to be approximately 0.1 cm from each margin. No mass-like lesions or nodules are identified. No biopsy clip is found. The specimen is submitted entirely and sequentially as follows:A1. Slice 1, perpendicular sections of medial margin with dense fibrous areaA2. Slice 2 with remainder of dense fibrous areaA3. Slice 3 with hemorrhagic areaA4. Slice 4 with hemorrhagic areaA5. Slice 5 with hemorrhagic.A6. Slice 6 with hemorrhagic.A7. Slice 7 with hemorrhagic areaA8. Slice 8, perpendicular sections of lateral margin with remaining hemorrhagic. Total formalin fixation: Between 6 and 72 hours. [facility] 01-19-2025 CPT:[id number]
--- NOTE | 2025-01-19 16:40 | POSTOPAN2_ITS ---
Anesthesia Postop Eval I Sum Postop Eval Completion status Anesthesia document: Postop Eval 1 completed: Yes Anesthesia Postop Eval I Summary Anesthesia Postop Eval I Summary: Anesthesia Postop Eval I: Assessment Summary Airway patent Yes 01/19/25 12:31 MEMORY CARE PROGRAM RESIDENT.[email or web address] Spontaneous unlabored Yes 01/19/25 12:31 MEMORY CARE PROGRAM RESIDENT.GDOTT respirations Mental status Awake,Calm 01/19/25 12:31 MEMORY CARE PROGRAM RESIDENT.GDOTT nausea No 01/19/25 12:31 MEMORY CARE PROGRAM RESIDENT.GDOTT Vomiting No 01/19/25 12:31 MEMORY CARE PROGRAM RESIDENT.GDOTT Anesthesia Postop Eval I: Fluid Summary Crystalloid volume administer 600 01/19/25 12:31 MEMORY CARE PROGRAM RESIDENT.GDOTT (ml) Colloids volume administered ( ml) Blood Product volume administered (ml) Total IV fluid infused 600 01/19/25 12:31 MEMORY CARE PROGRAM RESIDENT.GDOTT Anesthesia Postop Eval I: Summary Notes Anesthesia Complication No 01/19/25 12:31 MEMORY CARE PROGRAM RESIDENT.GDOTT Anesthesia Complication Comment: Post-operative progress note Anesthesia: Postop Eval II Evaluation Mental status: Awake Pain Level: 1 nausea: No Vomiting: No
--- NOTE | 2025-01-19 16:40 | PCM.POSTANE2 ---
Anesthesia Postop Eval I Sum Postop Eval Completion status Anesthesia document: Postop Eval 1 completed: Yes Anesthesia Postop Eval I Summary Anesthesia Postop Eval I Summary: Anesthesia Postop Eval I: Assessment Summary Airway patent Yes 01/19/25 12:31 BACON STRINGER.[email or web address] Spontaneous unlabored Yes 01/19/25 12:31 BACON STRINGER.GDOTT respirations Mental status Awake,Calm 01/19/25 12:31 BACON STRINGER.GDOTT nausea No 01/19/25 12:31 BACON STRINGER.GDOTT Vomiting No 01/19/25 12:31 BACON STRINGER.GDOTT Anesthesia Postop Eval I: Fluid Summary Crystalloid volume administer 600 01/19/25 12:31 BACON STRINGER.GDOTT (ml) Colloids volume administered ( ml) Blood Product volume administered (ml) Total IV fluid infused 600 01/19/25 12:31 BACON STRINGER.GDOTT Anesthesia Postop Eval I: Summary Notes Anesthesia Complication No 01/19/25 12:31 BACON STRINGER.GDOTT Anesthesia Complication Comment: Post-operative progress note Anesthesia: Postop Eval II Evaluation Mental status: Awake Pain Level: 1 nausea: No Vomiting: No
== END 2025-01-19 13:33 | disposition home or self-care (01) ==
LOC: SDC 10:26 → AC 10:27
PROVIDERS: PCP Family Medicine; Referring Provider Surgery; Visit Provider Surgery
PROC: (CPT 19125; principal; 2025-01-19 12:15)
DX: D24.2 Benign neoplasm of left breast (principal); N60.32 Fibrosclerosis of left breast; Z80.3 Family history of malignant neoplasm of breast
CPT/HCPCS: 19125; 00400; 88305; A4648; J2405

== ENCOUNTER → 2025-02-06 | Outpatient (CLI) | payer OTHER, SELFPAY ==
--- NOTE | 2025-02-06 07:58 | NM_ITS ---
PROCEDURE: HEPATOBILLIARY IMG W/PHARM INT 02/06/2025 REASON FOR EXAM: GALLSTONES TECHNIQUE: Intravenous Choletec with planar imaging of the abdomen. 1.1 mcg Kinevac intravenously approximately minutes after the radiopharmaceutical with additional anterior imaging and a region of interest drawn around the gallbladder to calculate a time-activity curve. RADIOPHARMACEUTICAL: Mebrofenin DOSE 5.4mCi COMPARISON: None FINDINGS: There is good uptake of the radiopharmaceutical by the liver. Normal gallbladder visualization with the gallbladder identified by 30 minutes. Gallbladder Ejection Fraction: 55 % (Normal is >35%) NM/Hepatobilliary Img w/Pharm Int IMPRESSION: Normal gallbladder ejection fraction. Reading Location: [place] [id number]
== END | disposition home or self-care (01) ==
LOC: NM 07:50
PROVIDERS: PCP Family Medicine; Referring Provider Internal Medicine Gastroenterology; Visit Provider Internal Medicine Gastroenterology
DX: K80.20 Calculus of gallbladder without cholecystitis without obstruction (principal)
CPT/HCPCS: 78227; A9537; J2805

== ENCOUNTER → 2025-02-21 | Outpatient (CLI) | payer OTHER, SELFPAY ==
--- OUTSIDE RECORDS SUMMARY | 2025-02-21 06:47 | XMS RPT_ITS | CCD ---
Author Organization [facility] Care Team Providers Care Junior Programmer Analyst Name Role Phone HARIKA ASKEW, DR FLORES Primary Care Physician Mark Shabazz Primary Care Provider [phone] ADEBAYO HATHAWAY Admitting Unavailable ADEBAYO HATHAWAY Attending ADEBAYO Rios Primary Care Miladys MURGUIA MD, TRUDI Attending Miladys SHABAZZ MD, DR FLORES Primary Care Bere MURGUIA MD, TRUDI Attending Miladys SHABAZZ MD, DR FLORES Primary Care Bere SHABAZZ MD, DR FLORES Primary Care Bere SHABAZZ MD, DR FLORES Attending Bere GUILLEN MD, JORDAN Pereira Attending Miladys SHABAZZ MD, DR FLORES Primary Care Bere CLARK MD, ROXANA Attending Miladys SHABAZZ MD, DR FLORES Primary Care Bere CLARK MD, ROXANA Attending Miladys SHABAZZ MD, DR FLORES Primary Care TYRA Lackey MD Consulting Miladys SHABAZZ MD, DR FLORES Primary Care Bere CLARK MD, ROXANA Attending ZAK Dejesus MD Consulting ELIAN Hua MD Attending Miladys SHABAZZ MD, DR FLORES Primary Care Bere SHABAZZ MD, DR FLORES Primary Care Bere KOWALSKI NP, JOVANNI Attending Miladys SHABAZZ MD, DR FLORES Primary Care Bere KOWALSKI IMAGE CONSULTANTJOVANNI Attending ELIAN Hua MD Attending Miladys SHABAZZ MD, DR FLORES Primary Care Bere MURGUIA MD, TRUDI Attending Miladys SHABAZZ MD, DR FLORES Primary Care Mark Jean-Baptiste Primary Care Provider [phone] Harika ASKEW, Dr. Flores Primary Care Provider Destiny IMAGE CONSULTANT-C, Jayla Attending Provider [phone] Destiny IMAGE CONSULTANT-C, Jayla Referring Provider [phone] Harika ASKEW, Dr. Flores Referring Provider [phone] Everton LOZANO, Dr. Tolliver Attending Provider Diego IMAGE CONSULTANT-C, Mariana Attending Provider [place] IMAGE CONSULTANT-C, Mariana Referring Provider Barkjohn IMAGE CONSULTANT-C, Maryjane Attending Provider Jenny IMAGE CONSULTANT-C, Maryjane Referring Provider Chris ASKEW, Dr. Tidwell Attending Provider [phone] Chris ASKEW, Dr. Tidwell Referring Provider [phone] Harika ASKEW, Dr. Flores Primary Care Provider Everton LOZANO, Dr. Tolliver Referring Provider Dossi DC, Dr. Bradley Attending Provider [phone] Dossi DC, Dr. Bradley Referring Provider [phone] Harika ASKEW, Dr. Flores Primary Care Provider Harika ASKEW, Dr. Flores Referring Provider Everton LOZANO, Dr. Tolliver Attending Provider Chris ASKEW, Dr. Tidwell Other Provider DOMENICO, MARIANA Attending Unavailable RANNEY, CHRISTOPHER Primary Care Unavailable RANNEY, CHRISTOPHER Primary Care Unavailable DOMENICO, MARIANA Attending Unavailable RANNEY, CHRISTOPHER Primary Care Unavailable DOMENICO, MARIANA Attending Unavailable RANNEY, CHRISTOPHER Primary Care Unavailable DOMENICO, MARIANA Referring Unavailable DOMENICO, MARIANA Attending Unavailable DOMENICO, MARIANA Attending Unavailable RANNEY, CHRISTOPHER Primary Care Unavailable DOMENICO, MARIANA Attending Unavailable RANNEY, CHRISTOPHER Primary Care Unavailable DOMENICO, MARIANA Attending Unavailable RANNEY, CHRISTOPHER Primary Care Unavailable DOMENICO, MARIANA Referring Unavailable Ranney, Christopher Referring Unavailable Jayla Dixon Attending Unavailable Ranney, Christopher Primary Care Unavailable Robotham, Diann Consulting Unavailable Robotham, Diann Referring Unavailable Robotham, Diann Attending Unavailable [place], [facility], [place] Primary Care Unavailable Ranney, Christopher Referring Unavailable [place] Dossi, Mirna Attending Unavailable [place], Christopher Referring Unavailable Dossi, Mirna Attending Unavailable [place] Unavailable Barkman, Maryjane Referring Unavailable Barkman, Maryjane Attending Unavailable [place], [facility], [place] Primary Care Unavailable [place], [facility], [place] Primary Care Unavailable Dixon, Jayla Referring Unavailable Dixon, Jayla Attending Unavailable [place], Christopher Primary Care Unavailable Dixon, Jayla Referring Unavailable Dixon, Jayla Attending Unavailable [place], [facility], [place] Primary Care Unavailable Ranney, Christopher Referring Unavailable Friend, Unruly Consulting Unavailable Friend, Unruly Attending Unavailable [place], [place] Primary Care Unavailable [place], Christopher Referring Unavailable [place] IMAGE CONSULTANT, Mariana Attending Unavailable [facility], [facility] Unavailable Assessment, Health Risk Attending Unavaila ble Friend, Unruly Referring Unavailable Friend, Unruly Attending Unavailable [place], [place] Primary Care Unavailable Robotham, Diann Referring Unavailable Robotham, Diann Attending Unavailable [facility], [facility] Unavailable [place], [facility] Unavailable Dossi, Mirna Referring Unavailable Dossi, Mirna Attending Unavailable [facility], [place] Primary Care Unavailable Diego IMAGE CONSULTANT, Mariana Referring Unavailable Diego IMAGE CONSULTANT, Mariana Attending Unavailable Robotham, Diann Referring Unavailable Robotham, Diann Attending Unavailable [place], [facility] Unavailable [place], Christopher Referring Unavailable Friend, Unruly Attending Unavailable [place], [facility] Unavailable Dixon, Jayla Referring Unavailable Dixon, Jayla Attending Unavailable [place], [facility] Unavailable [place], [facility], [place] Primary Care Unavailable Dixon, Jayla Referring Unavailable Dixon, Jayla Attending Unavailable Ranney, Christopher Referring Unavailable Dossi, Mirna Attending Unavailable [place], [facility] Unavailable Friend, Unruly Referring Unavailable Friend, Unruly Attending Unavailable [place], [facility] Unavailable [place], [facility] Unavailable Assessment, Health Risk Attending Unavaila ble Friend, Unruly Attending Unavailable [place], [facility] Unavailable Ranney, Christopher Referring Unavailable Robotham, Diann Attending Unavailable Mark Shabazz Primary Care Unavailable Mark Shabazz Referring Unavailable Mark Shabazz Referring Unavailable Mark Shabazz Primary Care Unavailable Mirna Gunderson Attending Unavailable Dinan Perez Attending Unavailable Mark Shabazz Primary Care Unavailable Mark Shabazz Referring Unavailable Allergies Allergy Classification Reported Allergen(s) Allergy Type Date of Onset Reaction(s) Facility (13 sources) HYDROcodone; Translations: [hydrocodone bitartrate] Drug Allergy 06-27-[address] [facility] (20 sources) traMADol; Translations: [tramadol] Drug Allergy 06-27-20 Hallucinations [facility] (13 sources) suture; Translations: [suture] Allergy to substance 06-27-[address] [facility] Comment on above: dissolving suture (10 sources) Acetaminophen / HYDROcodone; Translations: [acetaminophen-h ydrocodone] Drug Allergy [facility] (20 sources) Acetaminophen / HYDROcodone Drug Allergy 07-01-20 Nausea And Vomiting [facility] (20 sources) Amoxicillin-Pot Clavulanate Drug Intolerance 07-29-20 [facility] (7 sources) Amoxicillin; Translations: [amoxicillin] Drug Allergy rash [facility] (2 sources) Shellfish; Translations: [shellfish] Food allergy Itching [facility] (13 sources) Shellfish-Derive d Products Propensity to adverse reactions 05-12-20 [facility] (12 sources) Shellfish; Translations: [shellfish derived] Propensity to adverse reactions 06-13-[address] [facility] (1 source) traMADol Drug Allergy 02-07-20 [facility] Repository Medications Current Medications Medication Drug Class(es) Dates Sig (Normalized) Sig (Original) acetaminophen 325 mg / butalbital 50 mg / caffeine 40 mg oral tablet (20 sources) Barbiturate, Central Nervous System Stimulant, Methylxanthine Start: 06-12-2024 Butalbital-Aceta minophen-Caff 1 TABLET tablet Active 1 {tbl} PO AT BEDTIME June 12, 2024 12:00am Headache Start: 02-04-2024 End: 09-20-2024 take 1 tablet by mouth every six hours as needed for headache and headache, then take 1 tablet by mouth every six hours as needed for headache and headache iphldtgvlh-yxnwyuuvxaqwq-pczzlskn 50-325 -40 MG tablet Indications: Chronic migraine without aura, intractable, without status migrainosus Take 1 tablet by mouth every 6 hours as needed for headaches. TAKE 1 TABLET BY MOUTH EVERY 6 HOURS IF NEEDED FOR HEADACHE. 130 tablet 2 02/04/2024 05/12/2024 Start: 08-02-2023 take 1 tablet by luz elena th once daily at bedtime APAP/butalbital/caffeine 325-50-40 mg or al tablet (Fioricet) Dose = 1 tab(s), Oral, qHS, # 30 tab(s), 0 Refill(s) Start Date: 08/02/23 Status: Ordered Start: 09-09-2022 End: 01-04-2024 take 1 tablet by mouth every six hours for headache vxhjvfxprw-udmzhnjzcsfke-fqtciovf 50-325 -40 MG tablet Indications: Chronic migraine without aura, intractable, without status migrainosus TAKE 1 TABLET BY MOUTH EVERY 6 HOURS IF NEEDED FOR HEADACHE. 90 day supply 130 tablet 1 01/04/2024 Active Start: 04-27-2018 take 1 tablet by luz elena th every four hours as needed Tcplxedqqy-Ljimedvkxbxua-Ofkh Active 1 T ABLET PO EVERY 4 HOURS NEEDED April 27, 2018 7:31pm Start: 04-27-2018 End: 01-23-2025 Djbbuatkop-Qdtbayubnsnmk-Bgb f 1 TABLET tablet Discontinued 1 {tbl} PO EVERY 4 HOURS NEEDED as needed for Headache 20 0 April 27, 2018 12:00am June 12, 2024 1:57pm Start: 02-11-2018 End: 03-06-2019 Lsotwmqbel-Lmbnxsijayzdj-Xdm f Discontinued 1 TABLET PO NEEDED April 22, 2018 12:57pm March 06, 2019 8:43am Start: 02-11-2018 End: 03-06-2019 Umgtjplmhw-Spcnzhfjzjpvb-Lyi f 50-325-40 mg tablet Discontinued 1 {tbl} PO NEEDED as needed for Migraine Symptoms April 22, 2018 12:57pm March 06, 2019 8:43am cefdinir 300 mg oral capsule (1 source) Cephalosporin Antibacterial Start: 09-24-2023 cefdinir 300 mg oral capsule 0 Refill(s), 50.2 Start Date: 09/24/23 Status: Ordered cholecalciferol 0.05 mg oral capsule (20 sources) Vitamin D Start: 05-16-2024 take 1 capsule by mouth once daily Cholecalciferol (Vitamin D3) 50 mcg (2,000 unit) capsule Active 50 ug PO daily May 16, 2024 12:00am Start: 05-22-2021 Vitamin D (3) 45 units oral capsule qDay, 0 Refill(s) Start Date: 05/22/21 Status: Ordered diphenhydrAMINE hydrochloride 25 mg oral capsule (20 sources) Histamine-1 Receptor Antagonist Start: 12-25-2024 take 1 capsule by mouth at bedtime Diphenhydramine Hcl (Benadryl) 25 mg capsule Active 25 mg PO AT BEDTIME December 25, 2024 12:00am Start: 08-02-2023 diphenhydrAMIN E (Benadryl Allergy) 25 MG capsule Take 50 mg by mouth. 08/02/2023 Active Start: 08-02-2023 Benadryl 25 mg oral capsule Dose : 25 mg = 1 cap(s), Oral, qHS, 0 Refill(s) Start Date: 08/02/23 Status: Ordered estradiol 2 mg oral tablet (20 sources) Estrogen Start: 03-27-2019 End: 06-12-2024 take 1 tablet by mouth once daily Estradiol 2 mg tablet Active 2 mg PO daily May 16, 2024 12:00am 2 ml ketorolac tromethamine 30 mg/ml cartridge (20 sources) Nonsteroidal Anti-inflammatory Drug, Cyclooxygenase Inhibitor Start: 10-04-2023 End: 06-29-2024 inject 60 mg by intramuscular injection every six hours as needed ketorolac (Toradol) 60 MG/2ML solution Inject 2 mL (60 mg) into the shoulder, thigh, or buttocks every 6 hours as needed (Migraine pain). Do not exceed 5 doses in one week or 10 doses in one month. 20 mL 3 06/29/2024 Active Start: 05-17-2023 End: 06-16-2023 inject 60 mg by intramuscular injection every six hours as needed for pain ketorolac (Toradol) 60 MG/2ML solution Inject 2 mL (60 mg) into the shoulder, thigh, or buttocks every 6 hours as needed for severe pain (7-10) (Migraine pain). Do not exceed 5 doses in one week or 10 doses in one month. 20 mL 2 05/17/2023 06/16/2023 Active levothyroxine sodium 0.05 mg oral tablet (20 sources) l-Thyroxine Start: 08-02-2023 End: 07-27-2024 levothyroxine 50 mcg (0.05 mg) oral tablet Dose : 50 mcg = 1 tab(s), Oral, qAM, # 30 tab(s), 0 Refill(s) Start Date: 10/05/23 Status: Ordered Start: 02-01-2023 End: 07-31-2023 levothyroxine 50 mcg (0.05 m g) oral tablet Dose : 50 mcg = 1 tab(s), Oral, qDay, # 30 tab(s), 5 Refill(s), Pharmacy: [facility], 162, cm, 07/09/22 8:28:00 EST, Height, kg, 07/09/22 8:28:00 EST, Dosing Weight Start Date: 02/01/23 Stop Date: 07/31/23 Status: Ordered Start: 07-09-2022 take 1 tablet by once daily Levothyroxine 50 mcg tablet Active 50 ug PO daily May 16, 2024 12:00am Start: 07-09-2022 End: 01-05-2023 levothyroxine 50 mcg (0.05 m g) oral tablet Dose : 50 mcg = 1 tab(s), Oral, qDay, # 30 tab(s), 5 Refill(s), [facility]: [id number], 162, cm, 07/09/22 8:28:00 EST, Height, kg, 07/09/22 8:28:00 EST, Dosing Weight Start Date: 07/09/22 Stop Date: 01/05/23 Status: Ordered lisdexamfetamine dimesylate 30 mg oral capsule (20 sources) Central Nervous System Stimulant Start: 10-05-2023 take 1 capsule by mouth once daily in the morning Lisdexamfetamine (Vyvanse) 30 mg capsule Active 30 mg PO EVERY MORNING 0 May 16, 2024 12:00am Start: 07-09-2022 End: 02-10-2023 lisdexamfetamine (Vyvanse) 2 0 MG capsule 0 Refill(s), 63.5 0 07/09/2022 Active Magnesium (7 sources) Start: 01-10-2025 Magnesium 100 mg tablet Active 1140 mg PO DAILY January 10, 2025 12:00am Multi Vitamin+ oral liquid (8 sources) Start: 05-22-2021 Multi Vitamin+ oral liquid 0 Refill(s) Start Date: 05/22/21 Status: Ordered multivitamin capsule (1 source) Start: 04-22-2018 take 1 capsule by mouth once daily multivitamin capsule Active 1 CAP PO DAILY April 22, 2018 12:58pm Multivitamin capsule (11 sources) Start: 04-22-2018 Multivitamin capsule Active 1 NMA PO DAILY April 22, 2018 12:00am Multivitamin preparation (2 sources) Start: 10-05-2023 take 1 tablet by mouth once daily in the morning Multivitamin Dose = 1 tab(s), Oral, qAM, 0 Refill(s) Start Date: 10/05/23 Status: Ordered ondansetron 4 mg disintegrating oral tablet (20 sources) Serotonin-3 Receptor Antagonist Start: 07-29-2022 End: 02-16-2024 ondansetron ODT (Zofran-ODT) 4 MG disintegrating tablet dissolve 1 tablet under the tongue every 8 hours if needed for nausea OR vomiting Strength: 4 mg 60 tablet 5 02/16/2024 Active oxyCODONE hydrochloride 5 mg oral capsule (20 sources) Opioid Agonist Start: 01-19-2025 take 1 capsule by mouth every six hours as needed for pain Oxycodone 5 mg capsule Active 5 mg PO EVERY 6 HOURS as needed for pain 5 3 0 January 19, 2025 Postoperative pain Other acute postprocedural pain Start: 10-13-2023 End: 10-20-2023 oxyCODONE 5 mg oral tablet ( IMMEDIATE release ) Dose : 5 mg = 1 tab(s), Oral, q6h, PRN for pain, X 7 day(s), # 28 tab(s), 0 Refill(s), 10/20/23 1:14:00 PM EST, Pharmacy: [email or web address] #[id number], Post-op pain, 162.6, cm, 10/13/23 9:28:00 EST, Height, 49.5, kg, 10/13/23 9:28:00 EST, Dosing Weight Start Date: 10/13/23 Stop Date: 10/20/23 Status: Ordered Start: 03-27-2019 End: 04-05-2019 take 1 tablet by mouth every six hours as needed for pain Oxycodone 5 MG tablet Discontinued 5 mg PO EVERY 6 HOURS NEEDED as needed for Severe Pain () 20 7 0 March 27, 2019 April 02, 2019 12:00am April 05, 2019 12:07am Other acute postprocedural pain Psyllium (1 source) Start: 11-16-2023 Metamucil Oral , 0 Refill(s) Start Date: 11/16/23 Status: Ordered rimegepant 75 mg disintegrating oral tablet (20 sources) Start: 07-09-2022 End: 10-13-2024 take 1 tablet by mouth every other day Rimegepant Sulfate 75 MG tablet dispersible TAKE 75 MG BY MOUTH ONCE EVERY OTHER DAY (MIGRAINE) 16 tablet 5 07/29/2022 07/29/2023 Active Syringe 25G X 1 3 ML misc (20 sources) Start: 06-29-2024 Syringe 25G X 1 3 ML misc 1 Syringe Once as needed (Migraine) for up to 1 dose. 20 each 3 06/29/2024 Active Start: 10-04-2023 End: 06-29-2024 Syringe 25G X 1 3 ML misc 1 Syringe Once as needed (Migraine) for up to 1 dose. 20 each 3 10/04/2023 06/29/2024 Discontinued (Reorder) Start: 10-04-2023 Syringe 25G X 1 3 ML misc 1 Syringe Once as needed (Migraine) for up to 1 dose. 20 each 3 10/04/2023 Active therapeutic multivitamin-minerals (Theragran-M) tablet (20 sources) take 1 tablet by mouth once daily therapeutic multivitamin-minerals (Theragran-M) tablet Take 1 tablet by mouth daily. Active take 1 tablet by mouth once jose y therapeutic multivitamin-minerals (Theragran- M) tablet Take 1 tablet by mouth daily. 0 Active tiZANidine 4 mg oral capsule (20 sources) Central alpha-2 Adrenergic Agonist Start: 05-16-2024 take 1 capsule by mouth at bedtime Tizanidine 4 mg capsule Active 4 mg PO AT BEDTIME May 16, 2024 12:00am Start: 07-09-2022 End: 11-15-2023 take 1 tablet by mouth every eight hours as needed tiZANidine (Zanaflex) 4 MG tablet Take 1 tablet (4 mg) by mouth every 8 hours as needed for muscle spasms. 0 Refill(s) 90 tablet 1 08/17/2023 Active valACYclovir 500 mg oral tablet (3 sources) Herpesvirus Nucleoside Analog DNA Polymerase Inhibitor, Herpes Simplex Virus Nucleoside Analog DNA Polymerase Inhibitor, Herpes Zoster Virus Nucleoside Analog DNA Polymerase Inhibitor Start: 07-09-2022 End: 08-03-2023 valACYclovir 500 mg oral tablet Dose : 500 mg = 1 tab(s), Oral, qDay, X 30 day(s), # 30 tab(s), 12 Refill(s), 08/03/23 8:54:00 EST, Pharmacy: [facility] #[id number], 162, cm, 07/09/22 8:28:00 EST, Height, 54.5, kg, 07/09/22 8:28:00 EST, Dosing Weight Start Date: 07/09/22 Stop Date: 08/03/23 Status: Ordered Vitamin D3 50 mcg (2000 intl units) oral capsule (2 sources) Start: 10-05-2023 Vitamin D3 50 mcg (2000 intl units) oral capsule Dose : 100 mcg = 2 cap(s), Oral, qAM, # 60 cap(s), 0 Refill(s) Start Date: 10/05/23 Status: Ordered Completed/Discontinued Medications Medication Drug Class(es) Dates Sig (Normalized) Sig (Original) acetaminophen 325 mg / oxyCODONE hydrochloride 5 mg oral tablet (12 sources) Opioid Agonist Start: 02-15-2018 End: 04-22-2018 take 1 tablet by mouth every six hours as needed Oxycodone-Acetamino phen Discontinued 1 TABLET PO EVERY 6 HOURS NEEDED 12 February 15, 2018 4:30pm April 22, 2018 12:56pm Start: 02-15-2018 End: 04-22-2018 Oxycodone-Acetaminophen 1 TA BLET tablet Discontinued 1 {tbl} PO EVERY 6 HOURS NEEDED as needed for Pain 12 5 0 February 15, 2018 12:00am April 22, 2018 12:56pm Back pain Dorsalgia, unspecified ALPRAZolam 0.25 mg oral tablet (20 sources) Benzodiazepine Start: 06-06-2020 End: 01-10-2025 Alprazolam (Xanax) 0.25 mg tablet Discontinued 0.5 mg PO 2 to 3 times per day as needed for Anxiety June 06, 2020 2:06pm January 10, 2025 11:24am Start: 04-22-2018 End: 06-06-2020 Alprazolam (Xanax) 0.25 mg t ablet Discontinued 0.25 mg PO 2 to 3 times per day as needed for Anxiety April 22, 2018 12:00am June 06, 2020 2:07pm Start: 04-09-2014 ALPRAZolam (Xa nax) 0.5 MG tablet 04/09/2014 Active bacillus coagulans [id number] unt / inulin 250 mg oral capsule (20 sources) End: 09-19-2024 Bacillus Coagulans-Inulin (Probiotic) 1-250 BILLION-MG capsule Take by mouth. 09/19/2024 Discontinued (Med list cleanup) onabotulinumtoxina 200 unt injection (20 sources) Acetylcholine Release Inhibitor Start: 12-12-2024 End: 12-12-2024 onabotulinumtoxinA (Botox) injection 200 Units Start: 12-12-2024 End: 12-12-2024 inject 200 [IU] by intramuscular injection once 200 Units, IntraMUSCular, Once, On Wed12/12/24 at 1015, For 1 dose Start: 09-19-2024 End: 09-19-2024 onabotulinumtoxinA (Botox) i njection 200 Units Start: 09-19-2024 End: 09-19-2024 inject 200 [IU] by intramuscular injection once 200 Units, IntraMUSCular, Once, On Wed09/19/24 at 0830, For 1 dose Start: 06-05-2024 End: 06-05-2024 onabotulinumtoxinA (Botox) i njection 200 Units Start: 06-05-2024 End: 06-05-2024 inject 200 [IU] by intramuscular injection once 200 Units, IntraMUSCular, Once, On 06/05/24 at 1430, For 1 dose Start: 05-25-2024 onabotulinumto xinA (Botox) 200 units injection Indications: Intractable chronic migraine without aura and without status migrainosus Provider to inject 200 units intramuscularly every 12 weeks for migraine prevention. 1 each 3 05/25/2024 Active Start: 02-16-2024 End: 02-16-2024 onabotulinumtoxinA (Botox) i njection 200 Units Start: 02-16-2024 End: 02-16-2024 inject 200 [IU] by intramuscular injection once 200 Units, IntraMUSCular, Once, On Wed02/16/24 at 0915, For 1 dose Start: 11-23-2023 End: 11-23-2023 onabotulinumtoxinA (Botox) i njection 200 Units Start: 08-17-2023 End: 08-17-2023 onabotulinumtoxinA (Botox) i njection 200 Units Start: 08-02-2023 inject 1 dose by int ramuscular injection every three months Botox 100 units injection Dose : 1.25 unit(s) =, Intramuscular, q3mo, 0 Refill(s) Start Date: 08/02/23 Status: Ordered Start: 08-02-2023 inject 1 dose by int ramuscular injection every three months Botox 100 units injection Dose : 1.25 unit(s) =, Intramuscular, q3mo, 0 Refill(s) Start Date: 08/02/23 Status: Ordered Start: 05-17-2023 End: 05-17-2023 onabotulinumtoxinA (Botox) i njection 200 Units Start: 02-10-2023 End: 02-10-2023 onabotulinumtoxinA (Botox) i njection 200 Units Start: 11-04-2022 End: 11-04-2022 onabotulinumtoxinA (Botox) i njection 200 Units Start: 03-27-2022 End: 03-27-2023 onabotulinumtoxinA (Botox) 2 00 units injection INJECT 200 UNITS INTO THE MUSCLE ONCE FOR 1 DOSE DIAGNOSIS: CHRONIC MIGRAINE WITHOUT AURA, INTRACTABLE, NO STATUS. G43.709 PATIENT WILL BE INJE 1 each 3 03/27/2022 03/27/2023 Active cyclobenzaprine hydrochloride 10 mg oral tablet (12 sources) Muscle Relaxant Start: 02-11-2018 End: 04-22-2018 take 1 tablet by mouth three times daily as needed for muscle spasms Cyclobenzaprine 10 MG tablet Discontinued 10 mg PO THREE TIMES A DAY as needed for Muscle Spasm 20 0 February 11, 2018 12:00am April 22, 2018 12:57pm diazePAM 5 mg oral tablet (12 sources) Benzodiazepine Start: 02-15-2018 End: 04-22-2018 take 1 tablet by mouth twice daily Diazepam 5 MG tablet Discontinued 5 mg PO TWICE A DAY 10 5 0 February 15, 2018 12:00am April 22, 2018 12:57pm Muscle spasm of back docusate sodium 100 mg oral capsule (20 sources) Start: 03-27-2019 End: 06-06-2020 take 1 capsule by mouth twice daily as needed for constipation Docusate Sodium 100 MG capsule Discontinued 100 mg PO TWICE DAILY NEEDED as needed for Constipation 60 1 March 27, 2019 12:00am June 06, 2020 2:07pm Start: 08-03-2014 End: 07-30-2015 take 1 capsule by mouth twice daily Docusate Sodium (Colace) 100 MG capsule Discontinued 100 mg PO TWICE A DAY 30 August 03, 2014 1:00am July 30, 2015 1:53pm 1.5 ml fremanezumab-vfrm 150 mg/ml auto-injector (20 sources) Start: 06-12-2024 End: 12-25-2024 Fremanezumab-Vfrm (Ajovy Autoinjector) 225 mg/1.5 mL auto-injector Discontinued 225 mg SC EVERY MONTH June 12, 2024 12:00am December 25, 2024 3:08pm Start: 04-28-2024 End: 08-10-2024 fremanezumab (Ajovy) 225 MG/ 1.5ML auto-injector Indications: Intractable chronic migraine without aura and without status migrainosus Inject 1 Pen (225 mg) under the skin every 30 (thirty) days. 1.5 mL 2 05/15/2024 4:02 PM EDT 05/12/2024 06/29/2024 Discontinued 1 ml galcanezumab-gnlm 120 mg/ml prefilled syringe (12 sources) Start: 06-06-2020 End: 06-12-2024 Galcanezumab-Gnlm (Emgality Syringe) 120 mg/mL syringe Discontinued 120 mg SC EVERY MONTH June 06, 2020 12:00am June 12, 2024 1:56pm ibuprofen 200 mg oral capsule (20 sources) Nonsteroidal Anti-inflammatory Drug Start: 03-20-2019 End: 06-12-2024 take 1 capsule by mouth once daily as needed Ibuprofen 200 mg capsule Discontinued 200 mg PO DAILY as needed June 06, 2020 2:07pm June 12, 2024 1:56pm 10 ml lidocaine hydrochloride 10 mg/ml injection (20 sources) Antiarrhythmic, Amide Local Anesthetic Start: 12-12-2024 End: 12-12-2024 9 mL, IntraDERmal, Once, On Wed12/12/24 at 1015, For 1 dose Start: 10-31-2024 End: 10-31-2024 9 mL, IntraDERmal, Once, On Wed10/31/24 at 0945, For 1 dose Start: 09-25-2024 End: 12-12-2024 lidocaine (Xylocaine) 1 % in jection 9 mL Start: 06-29-2024 End: 06-29-2024 lidocaine (Xylocaine) 1 % in jection 9 mL Start: 06-29-2024 End: 06-29-2024 9 mL, IntraDERmal, Once, On Wed06/29/24 at 1445, For 1 dose Start: 02-16-2024 End: 02-16-2024 lidocaine (Xylocaine) 1 % in jection 9 mL Start: 02-16-2024 End: 02-16-2024 9 mL, Injection, Once, On 02/16/24 at 0915, For 1 dose Start: 01-04-2024 End: 01-04-2024 lidocaine (Xylocaine) 1 % in jection 9 mL Start: 01-04-2024 End: 01-04-2024 lidocaine (Xylocaine) 1 % in jection 9 mL Start: 11-23-2023 lidocaine (Xyl ocaine) 1 % injection 9 mL Start: 10-04-2023 End: 10-04-2023 lidocaine (Xylocaine) 1 % in jection 9 mL Start: 10-04-2023 End: 10-04-2023 lidocaine (Xylocaine) 1 % in jection 9 mL Start: 08-17-2023 End: 08-17-2023 lidocaine (Xylocaine) 1 % in jection 9 mL Start: 06-25-2023 End: 06-25-2023 lidocaine (Xylocaine) 1 % in jection 9 mL Start: 05-17-2023 End: 05-17-2023 lidocaine (Xylocaine) 1 % in jection 9 mL Start: 03-31-2023 End: 03-31-2023 lidocaine (Xylocaine) 1 % in jection 9 mL Start: 02-10-2023 End: 02-10-2023 lidocaine (Xylocaine) 1 % in jection 9 mL Start: 02-10-2023 End: 02-10-2023 lidocaine (Xylocaine) 1 % in jection 9 mL Start: 02-10-2023 End: 02-10-2023 lidocaine (Xylocaine) 1 % in jection 9 mL Start: 02-10-2023 End: 02-10-2023 lidocaine (Xylocaine) 1 % in jection 9 mL Start: 02-10-2023 End: 02-10-2023 lidocaine (Xylocaine) 1 % in jection 9 mL Start: 02-10-2023 End: 02-10-2023 lidocaine (Xylocaine) 1 % in jection 9 mL methylPREDNISolone 4 mg oral tablet (2 sources) Corticosteroid Start: 01-04-2024 End: 02-16-2024 methylPREDNISolone (Medrol Dospak) 4 MG tablets Indications: Chronic migraine without aura, intractable, without status migrainosus Follow schedule on package instructions 21 tablet 01/04/2024 02/16/2024 Discontinued (Med list cleanup) omega-3 acid ethyl esters (penitentiary) 1000 mg oral capsule (16 sources) End: 09-19-2024 omega-3 acid ethyl esters (Lovaza) 1 g capsule Take 1 g by mouth 2 times daily. 09/19/2024 Discontinued (Med list cleanup) predniSONE 20 mg oral tablet (2 sources) Start: 06-29-2024 End: 07-09-2024 take 1 tablet by mouth once daily predniSONE (Deltasone) 20 MG tablet Take 1 tablet (20 mg) by mouth daily for 10 days. 10 tablet 06/29/2024 07/09/2024 saccharomyces boulardii 250 mg oral capsule (11 sources) Start: 05-16-2024 End: 06-12-2024 take 1 capsule by mouth twice daily Saccharomyces Boulardii (Daily Probiotic (S. Boulardii)) 250 mg capsule Discontinued 250 mg PO TWICE A DAY May 16, 2024 12:00am June 12, 2024 1:56pm triamcinolone acetonide 10 mg/ml injectable suspension (20 sources) Corticosteroid Start: 12-12-2024 End: 12-12-2024 inject 10 mg by intramuscular injection once 10 mg, IntraMUSCular, Once, On Wed12/12/24 at 1015, For 1 dose Start: 10-31-2024 End: 10-31-2024 inject 10 mg by intramuscular injection once 10 mg, IntraMUSCular, Once, On Wed10/31/24 at 0945, For 1 dose Start: 09-25-2024 End: 12-12-2024 triamcinolone acetonide (Leonid alog) injection 10 mg Start: 06-29-2024 End: 06-29-2024 triamcinolone acetonide (Leonid alog) injection 10 mg Start: 06-29-2024 End: 06-29-2024 inject 10 mg by intramuscular injection once 10 mg, IntraMUSCular, Once, On Wed06/29/24 at 1445, For 1 dose Start: 02-16-2024 End: 02-16-2024 triamcinolone acetonide (Leonid alog) injection 10 mg Start: 02-16-2024 End: 02-16-2024 inject 10 mg by intramuscular injection once 10 mg, IntraMUSCular, Once, On Wed02/16/24 at 0915, For 1 dose Start: 01-04-2024 End: 01-04-2024 triamcinolone acetonide (Leonid alog) injection 10 mg Start: 01-04-2024 End: 01-04-2024 triamcinolone acetonide (Leonid alog) injection 10 mg Start: 11-23-2023 triamcinolone acetonide (Kenalog) injection 10 mg Start: 10-04-2023 End: 10-04-2023 triamcinolone acetonide (Leonid alog) injection 10 mg Start: 10-04-2023 End: 10-04-2023 triamcinolone acetonide (Leonid alog) injection 10 mg Start: 08-17-2023 End: 08-17-2023 triamcinolone acetonide (Leonid alog) injection 10 mg Start: 06-25-2023 End: 06-25-2023 triamcinolone acetonide (Leonid alog) injection 10 mg Start: 05-17-2023 End: 05-17-2023 triamcinolone acetonide (Leonid alog) injection 10 mg Start: 03-31-2023 End: 03-31-2023 triamcinolone acetonide (Leonid alog) injection 10 mg Start: 02-10-2023 End: 02-10-2023 triamcinolone acetonide (Leonid alog) injection 10 mg Start: 02-10-2023 End: 02-10-2023 triamcinolone acetonide (Leonid alog) injection 10 mg Start: 02-10-2023 End: 02-10-2023 triamcinolone acetonide (Leonid alog) injection 10 mg Start: 02-10-2023 End: 02-10-2023 triamcinolone acetonide (Leonid alog) injection 10 mg Start: 02-10-2023 End: 02-10-2023 triamcinolone acetonide (Leonid alog) injection 10 mg Start: 02-10-2023 End: 02-10-2023 triamcinolone acetonide (Leonid alog) injection 10 mg Problems Active Problems Problem Classification Problem Date Documented Da te Episodic/Chronic Abdominal pain (20 sources) Right lower quadrant pain; Translations: [Right lower quadrant pain] Onset: 08-17-2023 08-02-2023 Episodic Biliary tract disease (1 source) Calculus of gallbladder without cholecystitis without obstruction; Translations: [Calculus of gallbladder without cholecystitis without obstruction] Onset: 02-11-2025 Episodic Headache; including migraine (20 sources) Migraine; Translations: [Migraine, unspecified, not intractable, without status migrainosus] Onset: 03-27-2022 06-06-2022 Chronic Malaise and fatigue (13 sources) Fatigue; Translations: [Other fatigue] Onset: 11-10-2024 06-06-2020 Episodic Menopausal disorders (20 sources) Menopausal syndrome; Translations: [Premature menopause] 07-09-2022 Chronic Noninfectious gastroenteritis (18 sources) Inflammatory bowel disease; Translations: [Noninfective gastroenteritis and colitis, unspecified] Onset: 07-04-2024 05-16-2024 Episodic Nonmalignant breast conditions (20 sources) Breast lump; Translations: [Unspecified lump in the left breast, unspecified quadrant] Onset: 11-01-2024 11-01-2024 Episodic Comment on above: imaging Nonspecific chest pain (12 sources) Chest pain; Translations: [Chest pain, unspecified] 06-06-2020 Episodic Other bone disease and musculoskeletal deformities (20 sources) Lumbar segmental dysfunction ; Translations: [Segmental and somatic dysfunction of lumbar region] 01-09-2025 Episodic Other bone disease and musculoskeletal deformities (20 sources) Cervical segmental dysfunction; Translations: [Segmental and somatic dysfunction of cervical region] 01-09-2025 Episodic Other bone disease and musculoskeletal deformities (20 sources) Segmental and somatic dysfunction; Translations: [Segmental and somatic dysfunction of thoracic region] 01-10-2025 Episodic Other bone disease and musculoskeletal deformities (1 source) Segmental and somatic dysfunction of lumbar region; Translations: [Segmental and somatic dysfunction of lumbar region] Onset: 02-06-2025 Episodic Other bone disease and musculoskeletal deformities (1 source) Segmental and somatic dysfunction of cervical region; Translations: [Segmental and somatic dysfunction of cervical region] Onset: 02-06-2025 Episodic Other bone disease and musculoskeletal deformities (1 source) Segmental and somatic dysfunction of thoracic region; Translations: [Segmental and somatic dysfunction of thoracic region] Onset: 02-06-2025 Episodic Other connective tissue disease (20 sources) Myofascial pain; Translations: [Myalgia, other site] Onset: 01-04-2024 01-04-2024 Episodic Other connective tissue disease (2 sources) Myalgia, other site; Translations: [Myalgia, other site] Onset: 01-04-2024 Episodic Other disorders of stomach and duodenum (17 sources) Gastroparesis syndrome; Translations: [Gastroparesis] 05-16-2024 Episodic Other female genital disorders (12 sources) Lesion of endometrium; Translations: [Other specified conditions associated with female genital organs and menstrual cycle] 08-01-2015 Episodic Other female genital disorders (12 sources) Dysplasia of cervix; Translations: [Dysplasia of cervix uteri, unspecified] 08-03-2014 Episodic Other gastrointestinal disorders (17 sources) Irritable bowel syndrome with diarrhea; Translations: [Irritable bowel syndrome with diarrhea] 05-16-2024 Chronic Other gastrointestinal disorders (2 sources) Irritable bowel syndrome with diarrhea; Translations: [Irritable bowel syndrome with diarrhea] Onset: 07-04-2024 Chronic Other gastrointestinal disorders (1 source) Irritable bowel syndrome without diarrhea; Translations: [Irritable bowel syndrome without diarrhea] Onset: 05-16-2024 Chronic Other nervous system disorders (1 source) Postoperative pain ; Translations: [Other acute postprocedural pain] Onset: 10-13-2023 Episodic Other nutritional; endocrine; and metabolic disorders (7 sources) Unintentional weight loss 08-02-2023 Episodic Other upper respiratory disease (12 sources) Allergy to pollen; Translations: [Allergic rhinitis due to pollen] 06-06-2020 Chronic Other upper respiratory infections (12 sources) Acute pharyngitis; Translations: [Acute pharyngitis, unspecified] 04-22-2018 Episodic Peritonitis and intestinal abscess (12 sources) Peritonitis; Translations: [Peritonitis, unspecified] 06-06-2020 Episodic Residual codes; unclassified (12 sources) History of colonoscopy; Translations: [Other specified postprocedural states] 06-06-2020 Episodic Residual codes; unclassified (20 sources) Family history of breast cancer; Translations: [Family history of malignant neoplasm of breast] 11-01-2024 Episodic Comment on above: MGM and 2 aunts. Emp ower test ordered MGM and 2 aunts. Emp ower test negative. Overall risk 28%:enc yearly mammogram and breast MRI alternating Residual codes; unclassified (20 sources) Other specified personal risk factors, not elsewhere classified; Translations: [At high risk for breast cancer] 11-22-2024 Episodic Comment on above: 28.2% TalonerRyan ortiz ifetime breast cancer risk Residual codes; unclassified (1 source) Family history of malignant neoplasm of breast; Translations: [Family history of malignant neoplasm of breast] Onset: 11-22-2024 Episodic Spondylosis; intervertebral disc disorders; other back problems (20 sources) Backache; Translations: [Dorsalgia, unspecified] Onset: 01-10-2025 06-12-2024 Episodic Comment on above: CHRONIC Thyroid disorders (20 sources) Hypothyroidism; Translations: [Hypothyroidism, unspecified] 07-09-2022 Chronic Thyroid disorders (12 sources) Disorder of thyroid gland; Translations: [Disorder of thyroid, unspecified] 06-12-2024 Episodic Comment on above: ON MED Unclassified (10 sources) Patient encounter status 07-09-2022 Unclassified (1 source) Low back pain, unspecified; Translations: [Low back pain, unspecified] Onset: 01-10-2025 Past or Other Problems Problem Classification Problem Date Documented Da te Episodic/Chronic Gastrointestinal hemorrhage (2 sources) Hemorrhage of anus and rectum; Translations: [Hemorrhage of anus and rectum] Onset: 08-17-2023 Episodic Other disorders of stomach and duodenum (1 source) Gastroparesis; Translations: [Gastroparesis] Onset: 07-04-2024 Episodic Other screening for suspected conditions (not mental disorders or infectious disease) (2 sources) Abnormal findings on diagnostic imaging of other abdominal regions, including retroperitoneum; Translations: [Abnormal findings on diagnostic imaging of other abdominal regions, including retroperitoneum] Onset: 08-17-2023 Episodic Results Test Name Value Interpretation Reference Range Facility Hepatobilliary Img w/Pharm I nton 02-06-2025 Hepatobilliary Img w/Pharm Int [facility] Imaging Services [address] [place], [place] [id number] Hepatobilliary Img w/Pharm Int MR#: [id number] Acct: [id number] Name: MICHELLE CARLIN Rep #: [id number] : 1980 F 44 From: Bakari cantu MD PCP: Dr. Mark Shabazz MD Status: REG CLI Study: Hepatobilliary Img w/Pharm Int Date of Exam: 0 02/06/25 Exam# [id number] Ordering Dr: Unruly Toscano DO PROCEDURE: HEPATOBILLIARY IMG W/PHARM INT 02/06/2025 REASON FOR EXAM: GALLSTONES TECHNIQUE: Intravenous Choletec with planar imaging of the abdomen. 1.1 mcg Kinevac intravenously approximately minutes after the radiopharmaceutical with additional anterior imaging and a region of interest drawn around the gallbladder to calculate a time-activity curve. RADIOPHARMACEUTICAL: Mebrofenin DOSE 5.4mCi COMPARISON: None FINDINGS: There is good uptake of the radiopharmaceutical by the liver. Normal gallbladder visualization with the gallbladder identified by 30 minutes. Gallbladder Ejection Fraction: 55 % (Normal is >35%) NM/Hepatobilliary Img w/Pharm Int IMPRESSION: Normal gallbladder ejection fraction. Reading Location: [place] [id number] CC: Dr. Mark Shabazz MD; Unruly Toscano DO Tabulating Supervisor: Signed Normal [facility] Chiropractic Reporton 2024 Chiropractic Report [facility] [address] [place] [address] OFFICE VISIT Date of Service: 01/29/25 MR#: [id number] Acct: [id number] Name: MICHELLE CARLIN ANN Rep #: [id number] : 1980 Provider: YOHANA Saucedo Age/Sex: 44/F [place] [facility] Status: Signed Intake Vital Signs 01/09/25 11:22 01/19/25 10:57 Height 5 ft 4 in 5 ft 4 in Intake Visit Reasons: BACK PAIN Chief Complaint: neck and low back pain Is patient in pain?: Yes (neck and low back ) Pain scale (1-10): 3 Allergies suture Allergy (Mild, Verified 01/29/25 16:25) pus tramadol (From Ultram) Adverse Reaction (Intermediate, Verified 01/29/25 16:25) hallucinations shellfish derived Adverse Reaction (Mild, Verified 01/29/25 16:25) Hives hydrocodone bitartrate (From Vicodin) Adverse Reaction (Verified 01/29/25 16:25) Vomiting Medications ???Medication ???Instructions ???Recorded ???Confirmed ???Type multivitamin 1 cap PO DAILY 04/22/18 01/29/25 H istory cholecalciferol (vitamin D3) 50 50 mcg PO QDAY 05/16/24 01/29/25 H istory mcg (2,000 unit) capsule estradiol 2 mg tablet 2 mg PO QDAY 05/16/24 01/29/25 His tory levothyroxine 50 mcg tablet 50 mcg PO QDAY 05/16/24 01/29/25 H istory lisdexamfetamine 30 mg capsule 30 mg PO QAM 05/16/24 01/29/25 His tory (Vyvanse) tizanidine 4 mg capsule 4 mg PO QHS 05/16/24 01/29/25 Hist ory gpvcldbqkn-eukbqbtkrwfbb-zxr feine 1 tab PO QHS Headache 06/12/24 History 50 mg-325 mg-40 mg tablet diphenhydramine HCl 25 mg capsule 25 mg PO QHS 12/25/24 01/29/25 Hi story (Benadryl) magnesium 100 mg tablet 1,140 mg PO DAILY 01/10/25 5 History oxycodone 5 mg capsule 5 mg PO Q6H PRN pain 3 days #5 cap s 01/19/25 01/29/25 Rx PFSH Medical History Depression Anxiety Injury of head and neck History of hiatal hernia History of IBS History of diverticulitis Nausea Non-smoker History of TIA (transient ischemic attack) History of cervical dysplasia Peritonitis Back pain Thyroid disease Chest pain Migraines Hay fever Fatigue Surgical History History of esophagogastroduodenoscopy (EGD) Hx of resection of rectum History of hysterectomy History of appendectomy History of colonoscopy ( 2008) History of dilation and curettage ( 2014) History of bilateral breast reduction surgery ( 2017) History of loop electrical excision procedure (LEEP) ( 2014) History of ovarian cystectomy H/O oophorectomy Family History Daughter Asthma Father Hypertension Mother Hypertension Thyroid disorder Diabetes Grandmother Breast cancer Cancer omentum Osteoporosis Aunt Breast cancer Aunt Breast cancer Social History household members: spouse current occupational status: employed current occupation: [employer] [place] Smoking Status: Never smoker alcohol intake: never substance use type: does not use seatbelt use: always do you feel safe at home: Yes additional social history: - Rashard HPI BACK PAIN Chief Complaint: neck and low back pain Visit Number: 3 Details: Michelle is a 44 y/o female here to follow up with back pain. Pt. advises her last adjustment was helpful. She states her neck is stiff equal bilaterally. She has intermittent muscle spasms and numbness and tingling to her BUE, as well as frequent migraines. She rates her neck pain 3/10 today. She states her low back pain is equal across bilaterally and extends into the SI area. She states her low back is tender to touch and rates 3/10 today but can be sharp and intense at moments. She denies new injury, numbness, tingling or radiculopathy to her BLE. She also gets regular massages and uses a TENS unit at home to treat her pain. She reports chiropractic adjustments are helpful in relieving her pain and discomfort but it gradually returns. Location: neck and low back Duration: frequent Aggravating or associated factors: bending, lifting, twisting Relieving factors: chiro Pain Quality: aching, dull and sharp Exam Musc General: Yes normal posture and joint tenderness; No muscle weakness or decreased range of motion Cervical Spine: Yes loss of normal cervical lordosis, Yes cervical muscular tenderness (slightly improved) right greater than left lower , Yes cervical spasm right greater than left diffuse trapezius and paracervical muscles and Yes misalignment misalignment: C1, C2, C6 and C7 Thoracic/Lumber: No thoracic and lumbar spine normal to inspection (RIL: -IN), Yes paraspinal tenderness on the right greater than left (upper thoracic/ lower lumbar), Yes thoraco-lumbar spasm on the right greater than left ( (more content not included)... Normal [facility] Chiropractic Reporton 2024 Chiropractic Report [facility] [place] [address] OFFICE VISIT Date of Service: 01/23/25 MR#: [id number] Acct: [id number] Name: MICHELLE CARLIN ANN Rep #: [id number] : 1980 Provider: YOHANA Saucedo Age/Sex: 44/F [place] [facility] Status: Signed Intake Vital Signs 01/09/25 11:22 05/30/25 10:57 Height 5 ft 4 in 5 ft 4 in Intake Visit Reasons: BACK PAIN Chief Complaint: discuss MRI results/ options Is patient in pain?: Yes (upper and low back) Pain scale (1-10): 2 Allergies suture Allergy (Mild, Verified 01/23/25 13:23) pus tramadol (From Ultram) Adverse Reaction (Intermediate, Verified 01/23/25 13:23) hallucinations shellfish derived Adverse Reaction (Mild, Verified 01/23/25 13:23) Hives hydrocodone bitartrate (From Vicodin) Adverse Reaction (Verified 01/23/25 13:23) Vomiting Medications ???Medication ???Instructions ???Recorded ???Confirmed ???Type multivitamin 1 cap PO DAILY 04/22/18 01/23/25 H istory cholecalciferol (vitamin D3) 50 50 mcg PO QDAY 05/16/24 01/23/25 H istory mcg (2,000 unit) capsule estradiol 2 mg tablet 2 mg PO QDAY 05/16/24 01/23/25 His tory levothyroxine 50 mcg tablet 50 mcg PO QDAY 05/16/24 01/23/25 H istory lisdexamfetamine 30 mg capsule 30 mg PO QAM 05/16/24 01/23/25 His tory (Vyvanse) tizanidine 4 mg capsule 4 mg PO QHS 05/16/24 01/23/25 Hist ory orqwkasidu-ixdmysighinmx-dmv feine 1 tab PO QHS Headache 06/12/24 History 50 mg-325 mg-40 mg tablet diphenhydramine HCl 25 mg capsule 25 mg PO QHS 12/25/24 01/23/25 Hi story (Benadryl) magnesium 100 mg tablet 1,140 mg PO DAILY 01/10/25 5 History oxycodone 5 mg capsule 5 mg PO Q6H PRN pain 3 days #5 cap s 01/19/25 01/23/25 Rx PFSH Medical History Depression Anxiety Injury of head and neck History of hiatal hernia History of IBS History of diverticulitis Nausea Non-smoker History of TIA (transient ischemic attack) History of cervical dysplasia Peritonitis Back pain Thyroid disease Chest pain Migraines Hay fever Fatigue Surgical History History of esophagogastroduodenoscopy (EGD) Hx of resection of rectum History of hysterectomy History of appendectomy History of colonoscopy ( 2009) History of dilation and curettage ( 2015) History of bilateral breast reduction surgery ( 2018) History of loop electrical excision procedure (LEEP) ( 2014) History of ovarian cystectomy H/O oophorectomy Family History Daughter Asthma Father Hypertension Mother Hypertension Thyroid disorder Diabetes Grandmother Breast cancer Cancer omentum Osteoporosis Aunt Breast cancer Aunt Breast cancer Social History household members: spouse current occupational status: employed current occupation: [employer] [place] Smoking Status: Never smoker alcohol intake: never substance use type: does not use seatbelt use: always do you feel safe at home: Yes additional social history: - Rashard HPI BACK PAIN Chief Complaint: neck and low back pain Visit Number: 1 Details: Michelle is a 44 y/o female here to follow up with back pain. Pt. advises her last adjustment was helpful but she was sore for a day or 2 right after. She states her neck is constantly painful and sore equal bilaterally. She has intermittent muscle spasms and numbness and tingling to her BUE, as well as frequent migraines. She saw her Neuro for trigger point and injections this morning. She rates her neck pain 2/10 today. She c/o right hip pain that began in October. She states her low back pain is equal across bilaterally and extends into the SI area. She states her low back is a mild ache 1/10 today but can be sharp and intense at moments. She had a left breast biopsy surgery last Wednesday so she is still sore on that side. She denies new injury, numbness, tingling or radiculopathy to her BLE. She also gets regular massages and uses a TENS unit at home to treat her pain. She reports chiropractic adjustments are helpful in relieving her pain and discomfort but it gradually returns. Location: neck and low back Duration: frequent Aggravating or associated factors: bending, lifting, twisting Relieving factors: chiro Pain Quality: aching, dull and sharp Exam Musc General: Yes normal posture and joint tenderness; No muscle weakness or decreased range of motion Cervical Spine: Yes loss of normal cervical lordosis, Yes cervical muscular tenderness bilateral diffuse , Yes cervical spasm right greater than left diffuse trapezius and paracervical muscles and Yes misalignment misalignment: C1, C2, C6 and C7 Thorac (more content not included)... Normal [facility] Office Visiton 01-23-2025 Follow-up visit [id number] Michelle Carlin 1980 F Date Provider Department Center 01/23/2025 [id number] ACU[facility] None Family History Problem Relation Age of Onset High Blood Pressure Mother Other Mother Comments: fibromyalgia, anxiety issues Cancer Mother Comments: thyroid Diabetes Mother ADD / ADHD Mother Anxiety disorder Mother Depression Mother Fibromyalgia Mother Migraines Mother Neuropathy Mother High Blood Pressure Father Cancer Other Comments: pancreatic Cancer Paternal Grandmother Comments: breast and ovarian Cancer Other Comments: breast Cancer Mother's Sister Comments: breast Cancer Father's Sister Comments: skin Parkinsonism Paternal Grandfather Family Status - Relation Status Age at Mother Alive Father Alive Other Alive Paternal Grandmother Other Alive Mother's Sister Father's Sister Paternal Grandfather Level of Service:[id number] OK OFFICE/OUTPATIENT ESTABLISHED LOW MDM 20 MIN Reason for Visit and Comments: Procedure [88] Normal [facility] Progress Noteon 01-23-2025 Progress Note [facility] NEUROLOGY OUTPATIENT CLINIC Primary Care Physician: Mark Shabazz Chief Complaint: Chief Complaint Patient presents with Procedure Main Diagnosis: Diagnosis Plan 1. Intractable chronic migraine without aura and without status migrainosus 2. Myofascial pain History: given by the patient and EMR. EMR was personally reviewed prior to today's visit and included review of prior notes and intermediate communications. HPI: Ms. Michelle Carlin is a 44 y.o. female who is seen in the NEUROLOGY CLINIC of [facility] for migraines. Patient states she has suffered migraines since 2006. Patient has been on fioricet for abortive which worked for awhile but unfortunately no longer is as effective. Patient states her headaches are frontal/temporal, bilateral. She describes her pain as a dull pain. She has associated symptoms of photophobia, phonophobia, visual aura, nausea, and dizziness. Patient complains of having headaches 6 out of 10 days with 60 % of the headaches evolving into a migraine. Patient is positive for thyroid disease. She has family history of migraines with her Mother. Other family history: Cancer, diabetes, and hypertension. Patient is a non-smoker and drinks alcohol occasionally. The last visit was 12/12/2024 with this provider where the patient received Botox injections for the prevention of migraine pain. Headache characteristics: Description of pain: throbbing pain, bilateral in the frontal area, bilateral in the temporal area. Duration of individual headaches: 4-36 hour(s), frequency weekly. Associated symptoms: aura, light sensitivity, nausea, visual disturbance, and sound sensitivity. Pain relief: prescription medications - triptan therapy. Precipitating factors: stress and weather changes. INTERVAL HISTORY: Today, the patient returns for follow up of migraine control on current medication regimen. The patient reports increased neck and shoulder myofascial pain which she feels is resolved with TPI. The patient would like to receive TPI again today. TPI provided as documented below. The patient uses fioricet and ketorolac for treatment of migraine pain. Patient denies any side effects from medications and no new neurological deficits. Current migraine Meds: Botox Fioricet Nurtec Side effects: No known side effects Previous medication trials: Imitrex Maxalt Emgality Phenergan Benedryl Topamax Ubrelvy Amitriptyline Nortriptyline Past Medical History: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 01/03/25 Exam# [id number] Ordering Dr: Unruly Toscano DO EXAM: ENTEROGRAPHY ABD/PEL 01/03/2025 CLINICAL HISTORY: K52.9 - NONINFECTIVE GASTROENTERITIS AND COLITIS, UNSPECIFIED. Abdominal pain. TECHNIQUE: MRI of the abdomen and pelvis was performed. Multiplanar and multisequence images were obtained without and with intravenous gadolinium contrast.. MRI enterography. 12 mL of gadolinium contrast administered intravenously. COMPARISON: CT abdomen 06/06/2025 FINDINGS: Liver: Visualized portions of the liver appear normal. Gallbladder: Numerous filling defects within the gallbladder lumen consistent with cholelithiasis. No pericholecystic fluid or edema. No gallbladder wall thickening. No biliary ductal dilatation. Spleen: Spleen appears normal. Pancreas: Pancreas appears normal. No pancreatic ductal dilatation. Adrenal glands: Adrenal glands appear normal. Kidneys: Kidneys appear normal. No hydronephrosis. No enhancing or suspicious renal lesions. Retroperitoneum: No retroperitoneal hemorrhage. No aortic abdominal aneurysm. GI: No evidence of bowel obstruction. No abnormal bowel wall thickening or abnormal enhancement. No evidence of active enteritis or colitis. Pelvis: Urinary bladder appears normal. Status post hysterectomy. Osseous: No acute osseous abnormality seen. Additional: No fluid collection. MRI/Enterography Abd/Pel IMPRESSION: 1. No acute findings. 2. Cholelithiasis without evidence of acute cholecystitis. No biliary ductal dilatation. 3. No abnormal bowel wall thickening or enhancement. No evidence of active enteritis or colitis. 4. Status post hysterectomy Reading [facility] CC: Dr. Mark Shabazz MD; Unruly Toscano DO Tabulating Supervisor: Signed [facility] Surgery Visit Reporton 12-25 Surgery Visit Report [facility] [address] [place] [address] OFFICE VISIT Date of Service: 12/25/24 MR#: [id number] Acct: [id number] Name: MICHELLE CARLIN Rep #: [id number] : 1980 Provider: Dr. Diann narvaez MD Age/Sex: 44/F Location: [facility] Status: Signed Intake Vital Signs 11/22/24 09:46 12/25/24 15:07 Height 5 ft 4 in 5 ft 4 in Weight: 124 lb 120 lb BMI 21.2 20.5 BP 124/86 H 110/68 Blood Pressure Location Rt brachial Rt brachial Position Sitting Sitting Respiration 17 17 Pulse 71 64 Pulse Source Monitor Monitor Pulse Oximetry (%) 100 99 Oxygen Delivery Method room air room air Intake Visit Reasons: DISCUSS MRI RESULTS OPTIONS Chief Complaint: discuss MRI results/ options Is patient in pain?: No Allergies suture Allergy (Mild, Verified 12/25/24 15:08) pus tramadol (From Ultram) Adverse Reaction (Intermediate, Verified 12/25/24 15:08) hallucinations shellfish derived Adverse Reaction (Mild, Verified 12/25/24 15:08) Hives hydrocodone bitartrate (From Vicodin) Adverse Reaction (Verified 12/25/24 15:08) Vomiting Medications ???Medication ???Instructions ???Recorded ???Confirmed ???Type multivitamin 1 cap PO DAILY 04/22/18 12/25/24 H istory alprazolam 0.25 mg tablet (Xanax) 0.5 mg PO BID-TID PRN Anxiety 12/25/24 History cholecalciferol (vitamin D3) 50 50 mcg PO QDAY 05/16/24 12/25/24 H istory mcg (2,000 unit) capsule estradiol 2 mg tablet 2 mg PO QDAY 05/16/24 12/25/24 His tory levothyroxine 50 mcg tablet 50 mcg PO QDAY 05/16/24 12/25/24 H istory lisdexamfetamine 30 mg capsule 30 mg PO QAM 05/16/24 12/25/24 His tory (Vyvanse) tizanidine 4 mg capsule 4 mg PO QHS 05/16/24 12/25/24 Hist ory mrqhjmitvm-txyrhpnxrejwl-thj feine 1 tab PO QHS Headache 06/12/24 History 50 mg-325 mg-40 mg tablet diphenhydramine HCl 25 mg capsule 25 mg PO QHS 12/25/24 12/25/24 Hi story (Benadryl) [facility] Medical History Depression Anxiety Injury of head and neck History of hiatal hernia History of IBS History of diverticulitis Nausea Non-smoker Anxiety and depression History of TIA (transient ischemic attack) History of cervical dysplasia Peritonitis Back pain Thyroid disease Chest pain Migraines Hay fever Fatigue Surgical History Hx of resection of rectum History of hysterectomy History of appendectomy History of colonoscopy ( 2008) History of dilation and curettage ( 2014) History of bilateral breast reduction surgery ( 2017) History of loop electrical excision procedure (LEEP) ( 2013) History of ovarian cystectomy H/O oophorectomy Family History Daughter Asthma Father Hypertension Mother Hypertension Thyroid disorder Diabetes Grandmother Breast cancer Cancer omentum Osteoporosis Aunt Breast cancer Aunt Breast cancer Social History household members: spouse current occupational status: employed current occupation: [employer] [place] Smoking Status: Never smoker alcohol intake: never substance use type: does not use seatbelt use: always do you feel safe at home: Yes additional social history: - Rashard HPI HPI HPI: 44-year-old female came in for follow-up after breast MRI as well as left breast lump. Patient's MRI was given a BI-RADS 1 negative. Did review with her and her . Patient still states she feels this area about 12:00 2 to 3 cm from the nipple about pea-sized. ROS General General: Yes weight change and fatigue; No appetite, colon cancer or breast cancer HEENT HEENT: Yes difficulty swallowing; No eye injury, eye surgery, swollen glands or hoarseness Endo Endocrine: Yes thyroid disease; No diabetes mellitus, thyroid cancer, Hair loss, heat intolerance or cold intolerance Skin Skin: No rash or changing moles Breast Breast: Yes left breast lump; No right breast lump, nipple discharge, breast pain, abnormal mammogram, abnormal US or breast enlargement Musc Musculoskeletal: Yes back problems; No arthritis, rheumatoid arthritis, gout or joint pain Cardio Cardiovascular: No murmur, pacemaker, heart disease, atrial fibrillation, high blood pressure, heart attack, heart stent, palpitations, shortness of breath with exertion or chest pain Psych Psychiatric: No depression, anxiety or hearing voices Resp Respiratory: No shortness of breath, No sleep apnea, No cough, No COPD, No asthma, No emphysema and No wheezing Gastro Gastrointestinal: Yes abdominal pain, Yes nausea or vomiting, Yes diarrhea, No constipation, No blood in stool, Yes acid reflux, No hem (more content not included)... 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 Mark Shabazz MD Status: REG CLI Study: Breast Bilateral W/O and W Date of Exam: 11/28 Exam# [id number] Ordering Dr: Diann Perez MD PROCEDURE: BREAST BILATERAL W/O AND W 11/28/2024 REASON FOR EXAM: DENSE BREASTS/SIGNIFICANT FAMILY HX/LEFT LUMP 44-year-old female presents for diagnostic MRI of the breast due to left breast lump, dense breast tissue and strong family history of breast cancer. Family history of breast cancer in 2 maternal aunts at age 45 and 52, as well as a paternal grandmother at age 48. Personal history of bilateral breast reduction. TECHNIQUE: Bilateral breast MRI using a dedicated bilateral breast coil before and following intravenous contrast. Images reviewed with subtraction and DynaCAD. CONTRAST: 15 IV Clariscan COMPARISON: Mammogram and ultrasound 11/14/2024, mammogram 09/23/2023 FINDINGS: Amount of Fibroglandular Tissue: Extreme fibroglandular tissue. Background Parenchymal Enhancement: Minimal RIGHT Breast: No suspicious mass or non-mass enhancement. LEFT Breast: No suspicious mass or non-mass enhancement. Other Findings: No suspicious axillary or internal mammary lymph nodes. Visualized portions of the thoracic and abdominal viscera are unremarkable. MRI/Breast Bilateral W/O and W IMPRESSION: There is no MR evidence of malignancy in either breast. OVERALL BI-RADS CATEGORY: BI-RADS 1: NEGATIVE Reading Location: [facility] CC: Dr. Mark Shabazz MD; Dr. Diann Perez MD Tabulating Supervisor: Signed Normal [facility] Magnetic resonance imaging r eportOrdered By: Steffany Chambers on 11-28-2024 Study report [facility] Imaging Services [address] [place], [place] [address] Breast Bilateral W/O and W MR#: [id number] Acct: [id number] Name: MICHELLE CARLIN ANN Rep #: [id number] : 1980 F 44 From: Peggy Chambers MD PCP: Dr. Mark Shabazz MD Status: REG CLI Study:Breast Bilateral W/O and W Date of Exam : 11/28/24 Exam# [id number] Ordering Dr: Diann Perez MD PROCEDURE: BREAST BILATERAL W/O AND W 11/28/2024 REASON FOR EXAM: DENSE BREASTS/SIGNIFICANT FAMILY HX/LEFT LUMP 44-year-old female presents for diagnostic MRI of the breast due to left breast lump, dense breast tissue and strong family history of breast cancer. Family history of breast cancer in 2 maternal aunts at age 45 and 52, as well as a paternal grandmother at age 48. Personal history of bilateral breast reduction. TECHNIQUE: Bilateral breast MRI using a dedicated bilateral breast coil before and following intravenous contrast. Images reviewed with subtraction and DynaCAD. CONTRAST: 15 IV Clariscan COMPARISON: Mammogram and ultrasound 11/14/2024, mammogram 09/23/2023 FINDINGS: Amount of Fibroglandular Tissue: Extreme fibroglandular tissue. Background Parenchymal Enhancement: Minimal RIGHT Breast: No suspicious mass or non-mass enhancement. LEFT Breast: No suspicious mass or non-mass enhancement. Other Findings: No suspicious axillary or internal mammary lymph nodes. Visualized portions of the thoracic and abdominal viscera are unremarkable. MRI/Breast Bilateral W/O and W IMPRESSION: There is no MR evidence of malignancy in either breast. OVERALL BI-RADS CATEGORY: BI-RADS 1: NEGATIVE Reading Location: [id number] CC: Dr. Makr Shabazz MD; Dr. Diann Perez MD ~ Tabulating Supervisor: Signed [facility] Surgery Visit Reporton 11-22 Surgery Visit Report [facility] [address] [place] [address]. [address] [place] [address] OFFICE VISIT Date of Service: 11/22/24 MR#: [id number] Acct: [id number] Name: MICHELLE CARLIN ANN Rep #: [id number] : 1980 Provider: Dr. Diann narvaez MD Age/Sex: 44/F Location: [facility] Status: Signed Intake Vital Signs 11/01/24 15:36 11/22/24 09:46 Height 5 ft 4 in 5 ft 4 in Weight: 124 lb BMI 21.2 BP 124/86 H Blood Pressure Location Rt brachial Position Sitting Respiration 17 Pulse 71 Pulse Source Monitor Pulse Oximetry (%) 100 Oxygen Delivery Method room air Intake Visit Reasons: BREAST LUMP Chief Complaint: Left breast lump Is patient in pain?: No Allergies suture Allergy (Mild, Verified 11/22/24 09:56) pus tramadol (From Ultram) Adverse Reaction (Intermediate, Verified 11/22/24 09:56) hallucinations shellfish derived Adverse Reaction (Mild, Verified 11/22/24 09:56) Hives hydrocodone bitartrate (From Vicodin) Adverse Reaction (Verified 11/22/24 09:56) Vomiting Medications ???Medication ???Instructions ???Recorded ???Confirmed ???Type multivitamin 1 cap PO DAILY 04/22/18 11/22/24 H istory alprazolam 0.25 mg tablet (Xanax) 0.5 mg PO BID-TID PRN Anxiety 11/22/24 History cholecalciferol (vitamin D3) 50 50 mcg PO QDAY 05/16/24 11/22/24 H istory mcg (2,000 unit) capsule estradiol 2 mg tablet 2 mg PO QDAY 05/16/24 11/22/24 His tory levothyroxine 50 mcg tablet 50 mcg PO QDAY 05/16/24 11/22/24 H istory lisdexamfetamine 30 mg capsule 30 mg PO QAM 05/16/24 11/22/24 His tory (Vyvanse) tizanidine 4 mg capsule 4 mg PO QHS 05/16/24 11/22/24 Hist ory kzljknryal-rsbobaioilfby-yxr feine 1 tab PO QHS Headache 06/12/24 History 50 mg-325 mg-40 mg tablet fremanezumab-vfrm 225 mg/1.5 mL 225 mg subcut QMONTH 06/12/2410/17 History subcutaneous auto-injector (Ajovy) [facility] Medical History Depression Anxiety Injury of head and neck History of hiatal hernia History of IBS History of diverticulitis Nausea Non-smoker Anxiety and depression History of TIA (transient ischemic attack) History of cervical dysplasia Peritonitis Back pain Thyroid disease Chest pain Migraines Hay fever Fatigue Surgical History Hx of resection of rectum History of hysterectomy History of appendectomy History of colonoscopy ( 2008) History of dilation and curettage ( 2014) History of bilateral breast reduction surgery ( 2017) History of loop electrical excision procedure (LEEP) ( 2014) History of ovarian cystectomy H/O oophorectomy Family History Daughter Asthma Father Hypertension Mother Hypertension Thyroid disorder Diabetes Grandmother Breast cancer Cancer omentum Osteoporosis Aunt Breast cancer Aunt Breast cancer Social History household members: spouse current occupational status: employed current occupation: [employer] [place] Smoking Status: Never smoker alcohol intake: never substance use type: does not use seatbelt use: always do you feel safe at home: Yes additional social history: - Rashard HPI HPI HPI: 44-year-old female presents due to left breast mass. Patient states that she previously did feel this around beginning in October. Patient denies any changes to have a mammogram which showed dense breast tissue no masses given a BI-RADS 0, ultrasound given a BI-RADS 1 did not see any masses on exam. Patient does have family history of breast cancer in her grandmother in her 40s, maternal aunts in their 40s to 50s x 2, age at menses 15, time of of first child 23, 1 previous breast biopsy. Patient is status post breast reduction done in 2018. 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 Patient does have a Tyrer-Cuzick lifetime breast cancer risk of 28.2%. ROS General General: Yes weight change and fatigue; No appetite, colon cancer or breast cancer HEENT HEENT: Yes difficulty swallowing; No eye injury, eye surgery, swollen glands or hoarseness Endo Endocrine: Yes thyroid disease; No diabetes mellitus, thyroid cancer, Hair loss, heat intolerance or cold intolerance Skin Skin: No rash or changing moles Breast Breast: Yes left breast lump; No right breast lump, nipple discharge, breast pain, abnormal mammogram, abnormal US or breast enlargement Musc Musculoskeletal: Yes back problems; No arthritis, rheumatoid arthritis, gout or joint pain Cardio Cardiovascular: No murmur, pacemaker, heart disease, atrial fibrillation, high blood pressure, heart (more content not included)... Normal [facility] Breast imaging reportOrdered By: Willy Longo on 11-17-2024 Study report [facility] Imaging Services [address], [place] [address] DIAG MAMM W/CAD, BILAT MR#: [id number] Acct: [id number] Name: MICHELLE CARLIN Rep #: [id number] : 1980 F 44 From: Jelani Longo MD PCP: Dr. Mark Shabazz MD Status: REG CLI Study:DIAG MAMM W/CAD, BILAT Date of Exam: 11/14/24 Exam# [id number] Ordering Dr: Maryjane Alvarado ADDENDUM by Dr. Willy Longo MD on 11/17/24 at 1346 Correction: A targeted ultrasound examination was done and was negative. Reading Location: [facility] 11/17/24 1346 Date cc: GRAHAM Alvarado; Dr. Mark Shabazz MD ~* Signed EXAM: DIAG MAMM W/CAD, BILAT 11/14/2024 CLINICAL HISTORY: F, Age 44 y/o , LEFT BREAST LUMP noticed recently but not present today. TECHNIQUE: Bilateral Diagnostic digital breast tomosynthesis with 2D and 3D images. Computer aided detection. COMPARISON: Prior exam(s) dated: September 23, 2023. FINDINGS: TISSUE DENSITY: ACR category C. breasts are heterogeneously dense, which limits the sensitivity of mammography. Bilateral Breast Mammographic Findings: No significant masses, calcifications or other abnormalities are identified. As the breast lumpiness is not currently present per patient palpation and technologist palpation of the area, ultrasound examination was deferred. BI/DIAG MAMM W/CAD, BILAT IMPRESSION: Right Breast: BIRADS 1 NEGATIVE. Left Breast: BIRADS 1 NEGATIVE. OVERALL FINAL ASSESSMENT: BIRADS 1 NEGATIVE. RECOMMENDATION: Routine annual follow-up in 1 Year A letter with findings and recommendations will be mailed to the patient. Reading Location: [facility] CC: GRAHAM Alvarado; Dr. Mark Shabazz MD ~ Tabulating Supervisor: Signed [facility] Breast Limited Unilateralon 11-14-2024 Breast Limited Unilateral [facility] Imaging Services [address] [place], [place] [address] Breast Limited Unilateral MR#: [id number] Acct: [id number] Name: MICHELLE CARLIN ANN Rep #: [id number] : 1980 F 44 From: Willy Cruz PCP: Dr. Mark Shabazz MD Status: REG CLI Study: Breast Limited Unilateral Date of Exam: Exam# [id number] Ordering Dr: Maryjane Alvarado PROCEDURE: BREAST LIMITED UNILATERAL 11/14/2024 REASON FOR EXAM: LEFT BREAST LUMP TECHNIQUE: Targeted left breast ultrasound. COMPARISON: Bilateral mammograms of the same date. FINDINGS: Left breast ultrasound was targeted to the area of lumpy consistency in the upper-outer quadrant of the left breast.. The breast tissue appears sonographically normal. No cyst, solid mass, or suspicious shadowing. US/Breast Limited Unilateral IMPRESSION: Impression: Negative left breast sonogram. Birads: 1, negative. Reading Location: [place] [address] CC: IMAGE CONSULTANT-C Maryjane Alvarado; Dr. Mark Shabazz MD Tabulating Supervisor: Signed Normal [facility] DIAG MAMM W/CAD, BILATon DIAG MAMM W/CAD, BILAT [facility] Imaging Services [address] [place], [place] [address] DIAG MAMM W/CAD, BILAT MR#: [id number] Acct: [id number] Name: MICHELLE CARLIN ANN Rep #: [id number] : 1980 F 44 From: Willy Cruz PCP: Dr. Mark Shabazz MD Status: REG CLI Study: DIAG MAMM W/CAD, BILAT Date of Exam: 11/14/24 Exam# [id number] Ordering Dr: Maryjane Alvarado IMAGE CONSULTANT-C ADDENDUM by Dr. Willy Longo MD on 11/17/24 at 1346 Correction: A targeted ultrasound examination was done and was negative. [facility] 11/17/24 1346 Date cc: GRAHAM Alvarado; Dr. Mark Shaabzz MD * Signed EXAM: DIAG MAMM W/CAD, BILAT 11/14/2024 CLINICAL HISTORY: F, Age 44 y/o , LEFT BREAST LUMP noticed recently but not present today. TECHNIQUE: Bilateral Diagnostic digital breast tomosynthesis with 2D and 3D images. Computer aided detection. COMPARISON: Prior exam(s) dated: September 23, 2023. FINDINGS: TISSUE DENSITY: ACR category C. breasts are heterogeneously dense, which limits the sensitivity of mammography. Bilateral Breast Mammographic Findings: No significant masses, calcifications or other abnormalities are identified. As the breast lumpiness is not currently present per patient palpation and technologist palpation of the area, ultrasound examination was deferred. BI/DIAG MAMM W/CAD, BILAT IMPRESSION: Right Breast: BIRADS 1 NEGATIVE. Left Breast: BIRADS 1 NEGATIVE. OVERALL FINAL ASSESSMENT: BIRADS 1 NEGATIVE. RECOMMENDATION: Routine annual follow-up in 1 Year A letter with findings and recommendations will be mailed to the patient. Reading Location: [facility] CC: GRAHAM Alvarado; Dr. Mark Shabazz MD Tabulating Supervisor: Signed Normal [facility] L506.1001on 11-01-2024 Vitamin D 25-OH 106.0 ng/mL High 30-100 [facility] Comment on above: Result Comment: [place] min D Status Deficiency: <20 ng/mL (50nmol/L) Insufficiency: 20-30 ng/mL (50-75 nmol/L) Sufficiency: 30-100 ng/mL (75-250 nmol/L) Toxicity: >100 ng/mL (>250 nmol/L) Performed By: #### L 506.1001, L900.0098 #### [facility] [address] [place], [address] Miscellaneous procedureOrder ed By: Mariana Cortez on 11-01-2024 Miscellaneous Test Comment SEE SCANNED REPORT [facility] NATERAon 11-01-2024 NATURA SEE SCANNED REPORT Normal [facility] Comment on above: Performed By: #### L 506.1001, L900.0098 #### [facility] [address] [place], [address] Jailor Office Visit Reporton 11-01-2024 Jailor Office Visit Report [facility] [address], [address] [place] [address] OFFICE VISIT Date of Service: 11/01/24 MR#: [id number] Acct: [id number] Name: MICHELLE CARLIN ANN Rep #: [id number] : 1980 Provider: GRAHAM dorado Age/Sex: 44/F [place] [facility] Status: Signed Intake Vital Signs 06/13/24 13:21 11/01/24 15:36 Height 5 ft 4 in 5 ft 4 in Intake Visit Reasons: Left breast lump per [place] Chief Complaint: Left breast lump Assembler Billiard Table Required: No Is patient in pain?: No Allergies suture Allergy (Mild, Verified 06/13/24 13:20) pus tramadol (From Ultram) Adverse Reaction (Intermediate, Verified 06/13/24 13:20) hallucinations shellfish derived Adverse Reaction (Mild, Verified 06/13/24 13:20) Hives hydrocodone bitartrate (From Vicodin) Adverse Reaction (Verified 06/13/24 13:20) Vomiting Medications ???Medication ???Instructions ???Recorded ???Confirmed ???Type multivitamin 1 cap PO DAILY 04/22/18 11/01/24 H istory alprazolam 0.25 mg tablet (Xanax) 0.5 mg PO BID-TID PRN Anxiety 11/01/24 History cholecalciferol (vitamin D3) 50 50 mcg PO QDAY 05/16/24 11/01/24 H istory mcg (2,000 unit) capsule estradiol 2 mg tablet 2 mg PO QDAY 05/16/24 11/01/24 His tory levothyroxine 50 mcg tablet 50 mcg PO QDAY 05/16/24 11/01/24 H istory lisdexamfetamine 30 mg capsule 30 mg PO QAM 05/16/24 11/01/24 His tory (Vyvanse) tizanidine 4 mg capsule 4 mg PO QHS 05/16/24 11/01/24 Hist ory jyiyptfbjg-tvqrxtbexozyf-uzi feine 1 tab PO QHS Headache 06/12/24 History 50 mg-325 mg-40 mg tablet fremanezumab-vfrm 225 mg/1.5 mL 225 mg subcut QMONTH 06/12/2410/21 History subcutaneous auto-injector (Ajovy) Is last menstrual period known: No Post menopausal: Yes Patient : No : No Control Method: Hysterectomy [facility] Medical History Depression Anxiety Injury of head and neck History of hiatal hernia History of IBS History of diverticulitis Nausea Non-smoker Anxiety and depression History of TIA (transient ischemic attack) History of cervical dysplasia Peritonitis Back pain Thyroid disease Chest pain Migraines Hay fever Fatigue Surgical History Hx of resection of rectum History of hysterectomy History of appendectomy History of colonoscopy ( 2008) History of dilation and curettage ( 2014) History of bilateral breast reduction surgery ( 2017) History of loop electrical excision procedure (LEEP) ( 2013) History of ovarian cystectomy H/O oophorectomy Family History Daughter Asthma Father Hypertension Mother Hypertension Thyroid disorder Diabetes Grandmother Breast cancer Cancer omentum Osteoporosis Aunt Breast cancer Aunt Breast cancer Social History (Updated 11/01/24 @ 15:45 by Symone Sanabria) household members: spouse current occupational status: employed current occupation: [employer] [place] Smoking Status: Never smoker alcohol intake: never substance use type: does not use seatbelt use: always do you feel safe at home: Yes additional social history: - Rashard HPI Left breast lump per SD Details: MICHELLE CARLIN is a 44 year old who presents for noting bruising to left breast about 2 weeks ago and then felt a lump. History of bilateral breast reduction Right breast benign bx about 4 yr ago/Fabian History 2 Elective abortions Hx Para 2 Spontaneous abortions Hx # Term Pregnancies Ectopic pregnancies Hx # Pregnancies Multiple births # of living children 2 Past Pregnancies Del. Date Name GA/Weeks Outcome Route Bth Weight Infant Gen Labor [facility] FOB Unknown Broden- Adopted Unknown Vick Unknown Tonia ROS Const Constitutional: Reports system reviewed and no additional complaints, except as documented : Reports system reviewed and no additional complaints, except as documented Skin Skin/Breast: Reports as per HPI Psych Psych: Reports system reviewed and no additional complaints, except as documented Exam Const General: cooperative, no acute distress and well groomed Nutritional Appearance: well nourished Orientation: oriented x3 Neck Neck: normal visual inspection Chest Breast inspection: normal inspection of the breasts (bilateral surgical scars) and normal inspection of the axillae Breast palpation: abnormal palpation of the breast (soft mobile 1cm mass upper outer left breast.) Resp Effort Inspection: normal respiratory effort Coding Level of Care Code Off vis,est,level 3 Diagnoses Mass of upper outer quadrant of l (more content not included)... Normal [facility] Vitamin D, 25-hydroxyOrdered By: Mariana Cortez on 11-01-2024 Vitamin D 25-Hydroxy 106.0 ng/mL High 30-100 [facility] Comment on above: Vitamin D StatusDefi ciency: <20 ng/mL (50nmol/L)Insufficiency: 20-30 ng/mL (50-75 nmol/L)Sufficiency: 30-100 ng/mL (75-250 nmol/L)Toxicity: >100 ng/mL (>250 nmol/L) Progress Noteon 10-31-2024 Progress Note [facility] NEUROLOGY OUTPATIENT CLINIC Primary Care Physician: Mark Shabazz Chief Complaint: Chief Complaint Patient presents with Follow-up TPI - Intractable migraine Main Diagnosis: Diagnosis Plan 1. Intractable chronic migraine without aura and without status migrainosus 2. Myofascial pain lidocaine (Xylocaine) 1 % injection 9 mL triamcinolone acetonide (Kenalog) injection 10 mg History: given by the patient and EMR. EMR was personally reviewed prior to today's visit and included review of prior notes and intermediate communications. HPI: Ms. Michelle Carlin is a 44 y.o. female who is seen in the NEUROLOGY CLINIC of [facility] for migraines. Patient states she has suffered migraines since 2006. Patient has been on fioricet for abortive which worked for awhile but unfortunately no longer is as effective. Patient states her headaches are frontal/temporal, bilateral. She describes her pain as a dull pain. She has associated symptoms of photophobia, phonophobia, visual aura, nausea, and dizziness. Patient complains of having headaches 6 out of 10 days with 60 % of the headaches evolving into a migraine. Patient is positive for thyroid disease. She has family history of migraines with her Mother. Other family history: Cancer, diabetes, and hypertension. Patient is a non-smoker and drinks alcohol occasionally. The last visit was 09/19/2024 with this provider where the patient received Botox injections for the prevention of migraine pain. Headache characteristics: Description of pain: throbbing pain, bilateral in the frontal area, bilateral in the temporal area. Duration of individual headaches: 4-36 hour(s), frequency weekly. Associated symptoms: aura, light sensitivity, nausea, visual disturbance, and sound sensitivity. Pain relief: prescription medications - triptan therapy. Precipitating factors: stress and weather changes. INTERVAL HISTORY: Today, the patient returns for follow up of migraine control on current medication regimen. The patient reports increased neck and shoulder myofascial pain which she feels is resolved with TPI. The patient would like to receive TPI again today. TPI provided as documented below. The patient uses fioricet and ketorolac for treatment of migraine pain. Patient denies any side effects from medications and no new neurological deficits. Current migraine Meds: Botox Fioricet Nurtec Side effects: No known side effects Previous medication trials: Imitrex Maxalt Emgality Phenergan Benedryl Topamax Ubrelvy Amitriptyline Nortriptyline Past Medical History: Diagnosis Date ADHD (attention deficit hyperactivity disorder) Anxiety Cluster headache Headache Headache, tension-type Migraine Numbness Trigeminal neuralgia Vision loss Past Surgical History: Procedure Laterality Date COLPOSCOPY 2014 HYSTEROSCOPY 2015 plus D&C OOPHORECTOMY Left 2009 OVARIAN CYST SURGERY Right 2012 Allergies Allergen Reactions Amoxicillin-Pot Clavulanate Other reaction(s): Hives and/or rash Hydrocodone-Acetaminophen Nausea And Vomiting Other reaction(s): Severe nausea & vomiting, Vomiting Shellfish-Derived Products Tramadol Hallucinations @HOMEMEDS@ Current Outpatient Medications Medication Sig Dispense Refill ALPRAZolam (Xanax) 0.5 MG tablet cholecalciferol (Vitamin D-3) 50 MCG (1999 UT) capsule Take by mouth. diphenhydrAMINE (Benadryl Allergy) 25 MG capsule Take 50 mg by mouth. estradiol (Estrace) 2 MG tablet Take 2 mg by mouth daily. ketorolac (Toradol) 60 MG/2ML solution Inject 2 mL (60 mg) into the shoulder, thigh, or buttocks every 6 hours as needed (Migraine pain). Do not exceed 5 doses in one week or 10 doses in one month. 20 mL 3 levothyroxine (Synthroid, Levoxyl) 50 MCG tablet Take 50 mcg by mouth daily. lisdexamfetamine (Vyvanse) 30 MG capsule Take 30 mg by mouth every morning. onabotulinumtoxinA (Botox) 200 units injection Provider to inject 200 units intramuscularly every 12 weeks for migraine prevention. 1 each 3 ondansetron ODT (Zofran-ODT) 4 MG disintegrating tablet dissolve 1 tablet under the tongue every 8 hours if needed for nausea OR vomiting Strength: 4 mg 60 tablet 5 Syringe 25G X 1 3 ML misc 1 Syringe Once as needed (Migraine) for up to 1 dose. 20 each 3 therapeutic multivitamin-minerals (Theragran-M) tablet Take 1 tablet by mouth daily. tiZANidine (Zanaflex) 4 MG tablet Take 1 tablet (4 mg) by mouth every 8 hours as needed for muscle spasms. 0 Refill(s) 90 tablet 1 Current Facility-Administered Medications Medication Dose Route Frequency Provider Last Rate Last Admin lidocaine (Xylocaine) 1 % injection 9 mL 9 mL IntraDERmal Once CLEVELAND Patel CNP lidocaine (Xylocaine) 1 % injection 9 mL 9 mL IntraDERmal Once CLEVELAND Patel CNP lidocaine (Xylocaine) 1 % injection 9 mL 9 mL IntraDERmal Once CLEVELAND Patel CNP triamcinolone acetonide (more content not included)... [facility] Progress Note 10/31/2024 Trigger point injections Mariana Acuña [employer] Lidocaine [facility] 0631-1442-84 Lot [id number] 9 ml Kenalog [facility] [id number] Lot [id number] 1 ml [facility] [id number] 29 Addended by: MARIANA ACUÑA on: 09/25/2024 07:08 AM Modules accepted: Orders [facility] 29 Addended by: KAREN NGUYEN on: 09/19/2024 09:57 AM Modules accepted: Orders [facility] Gastroenterology Visit Repor ton 09-19-2024 Gastroenterology Visit Report [facility] Gastroenterology [address] [place] [address] OFFICE VISIT Date of Service: 09/19/24 MR#: [id number] Acct: [id number] Name: MICHELLE CARLIN Rep #: [id number] : 1980 Provider: Unruly Toscano DO Age/Sex: 44/F Location: [facility] [place] Status: Signed Intake Vital Signs 06/06/20 14:05 06/13/24 13:21 Height 5 ft 4 in 5 ft 4 in Intake Visit Reasons: 3 M FU Allergies suture Allergy (Mild, Verified 06/13/24 13:20) pus tramadol (From Ultram) Adverse Reaction (Intermediate, Verified 06/13/24 13:20) hallucinations shellfish derived Adverse Reaction (Mild, Verified 06/13/24 13:20) Hives hydrocodone bitartrate (From Vicodin) Adverse Reaction (Verified 06/13/24 13:20) Vomiting Medications ???Medication ???Instructions ???Recorded ???Confirmed ???Type multivitamin 1 cap PO DAILY 04/22/18 09/19/24 History alprazolam 0.25 mg tablet (Xanax) 0.5 mg PO BID-TID PRN Anxiety 06/06/20 09/19/24 History cholecalciferol (vitamin D3) 50 50 mcg PO QDAY 05/16/24 09/19/24 History mcg (2,000 unit) capsule estradiol 2 mg tablet 2 mg PO QDAY 05/16/24 09/19/24 History levothyroxine 50 mcg tablet 50 mcg PO QDAY 05/16/24 09/19/24 History lisdexamfetamine 30 mg capsule 30 mg PO QAM 05/16/24 09/19/24 History (Vyvanse) tizanidine 4 mg capsule 4 mg PO QHS 05/16/24 09/19/24 History qwydqhgnar-hghcbqrkvatzl-fdk feine 1 tab PO QHS Headache 06/12/24 09/19/24 History 50 mg-325 mg-40 mg tablet fremanezumab-vfrm 225 mg/1.5 mL 225 mg subcut QMONTH 06/12/24 09/19/24 History subcutaneous auto-injector (Ajovy) PFSH Medical History (Updated 06/12/24 @ 14:04 by Nhi Alvarez) Depression Anxiety Injury of head and neck History of hiatal hernia History of IBS History of diverticulitis Nausea Non-smoker Anxiety and depression History of TIA (transient ischemic attack) History of cervical dysplasia Peritonitis Back pain Thyroid disease Chest pain Migraines Hay fever Fatigue Surgical History (Updated 06/12/24 @ 14:04 by Nhi Alvarez) Hx of resection of rectum History of hysterectomy History of appendectomy History of colonoscopy ( 2008) History of dilation and curettage ( 2014) History of bilateral breast reduction surgery ( 2017) History of loop electrical excision procedure (LEEP) ( 2013) History of ovarian cystectomy H/O oophorectomy Family History Daughter Asthma Father Hypertension Mother Hypertension Thyroid disorder Diabetes Grandmother Breast cancer Cancer omentum Osteoporosis Aunt Breast cancer Aunt Breast cancer Social History (Updated 06/27/20 @ 11:18 by Monik BLACK, PA-C) Smoking Status: Never smoker HPI HPI Details: MICHELLE CARLIN, is a 44 F who presents to the office today for follow up. *BGI established ..24 for LLQ pain since . Pt reports having irregular BMs diarrhea, with some formed stools. Pt reports seeing mucus, oily stools. Pt denies blood in stools Pt has lost 20lbs in 6 months. Pt takes magnesium, probiotics, and multivitamin daily. abd/pelvis CT 06.06.24 No significant compression of the duodenum from the SMA and aorta. No findings to suggest SMA syndrome. GET 06.23.24 normal 46.84 minutes EGD and Colonoscopy 06.13.24 EGD Esophageal mucosal changes suspicious for short-segment Gage's esophagus. Biopsied. Hiatal hernia. Bile gastritis. Biopsied. Erythematous duodenopathy. Biopsied. Colonoscopy Abnormal perianal exam. One 5 mm polyp in the cecum, removed with a jumbo cold forceps. Resected and retrieved. Congested mucosa in the recto-sigmoid colon, in the sigmoid colon, in the transverse colon and in the cecum. Biopsied. The examined portion of the ileum was normal. Biopsied. OV 09.19.24 pt reports continued symptoms from previous visit. Constant LLQ aching pain with occasional stabbing pain; reports nothing affects this pain. pt reports intermittent epigastric pain with eating. Pt reports several bm per day, usually loose; denies blood in the stool. Pt reports daily nausea that is worst in the morning and after eating. Pt reports continued difficulty swallowing; mostly has trouble with food, occasionally liquid as well. Exam Const General: cooperative, healthy appearing and comfortable Nutritional Appearance: average body habitus and well nourished Orientation: alert HENMT Head: normal to inspection Ears: hearing grossly normal bilaterally Nose: external nose normal Face and sinus: normal facial exam and face symmetric Eyes General: appearance normal, both eyes and all related structures Sclera: sclerae normal Neck Neck: normal visual inspection and full ROM Neck mass: No Chest Chest palpation inspection: normal inspection of the chest Resp Effort Inspection: norm (more content not included)... Normal [facility] Progress Noteon 09-19-2024 Progress Note Administrations This Visit onabotulinumtoxin A (BOTOX) injection 200 Units Admin Date 09/19/24 Action Given Dose 200 Units Route IntraMUSCular Site Other Administered By CLEVELAND Lara CNP Ordering Provider: CLEVELAND Lara CNP [facility]: [id number] Lot#: [id number] Administrative Job Titles: [employer] Patient Supplied?: No Normal [facility]S Calprotectin, Stoolon [address] 16 ug/g Normal 0-120 [facility] Comment on above: Result Comment: Conc entration Interpretation Follow-Up < 5 - 50 ug/g Normal None >50 -120 ug/g Borderline Re-evaluate in 4-6 weeks >120 ug/g Abnormal Repeat as clinically indicated Performed at: - [facility] [id number] [employer] Lith[employer] Press Setter: Luis Barnett MD, Phone: [phone] Performed By: #### L 7400.3300, L7000.0700, M100.6796, M100.0605, L7000.0750, M600.5000, M100.637 ####[facility] [address] [place], [place], [address] Giardia Lamblia, Stool EIAon 08-18-2024 Giardia Stool Negative Normal Negative [facility] Comment on above: Result Comment: Perf ormed at: - [facility] [id number] [employer] Setter: Luis Barnett MD, Phone: [phone] Performed at: [facility] [id number] [employer] Setter: Thai James PhD, Phone: [phone] Performed By: #### L 7400.3300, L7000.0700, M100.6796, M100.0605, L7000.0750, M600.5000, M100.637 ####[facility] [address] [place], [place], [phone]- L7000.0750on 08-18-2024 P ELASTASE,FECA 637 Normal >200 [facility] Comment on above: Result Comment: Resu lt Units: ug Elast./g Stool of watery consistency received. Since watery stool is inherently dilute, low test results should be interpreted with caution. Retesting on formed stool, if possible, is recommended. Severe Pancreatic Insufficiency: <100 Moderate Pancreatic Insufficiency: 100 - 200 Normal: >200 Performed By: #### L 7400.3300, L7000.0700, M100.6796, M100.0605, L7000.0750, M600.5000, M100.637 ####[facility] [address] [place], [place], [address] Ova and Parasites 8623on OP OVA AND PARASITES EX AM, ROUTINE These results were obtained using wet preparation(s) and trichrome stained smear. This test does not include testing for Crytosporidium parvum, Cyclospora, or Microsporidia. One negative specimen does not rule out the possibility of a parasitic infection. _ TESTING PERFORMED AT [facility]. ORIGINAL REPORT ON FILE IN LAB CONTAINS ADDITIONAL TEST SITE INFORMATION. _ Ova/Parasite Exam NO OVA, CYSTS, OR PARASITES FOUND. [facility] Comment on above: Performed By: #### L 7400.3300, L7000.0700, M100.6796, M100.0605, L7000.0750, M600.5000, M100.637 ####[facility] [address] [place], [address] 36on 08-17-2024 36 Name of Caller: Jodi sethi Contact Reason for Appointment: Pt is requesting to reschedule appointment on 08/31/24 at 11:30 due to change in work schedule. 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 difficile DNA EMA+probe Q l (Unsp spec)Ordered By: Jayla Dixon on 08-15-2024 Clostridioides difficile (PCR) [facility] CDIFF (PCR)on 08-15-2024 CDIFF Pending [phone] NAP1-B1 Presumptive Negative *for epidemiolologic???use C. Diff PCR Negative- No toxigenic C. Diff Detected [facility] Comment on above: Performed By: #### L 7400.3300, L7000.0700, M100.6796, M100.0605, L7000.0750, M600.5000, M100.637 ####[facility] [address] [facility] [place], [address] Calprotectin stoolOrdered By : Jayla Dixon on 08-15-2024 Stool Calprotectin 16 ug/g 0-120 [facility] Comment on above: Concentration Interp retation Follow-Up< 5 - 50 ug/g Normal None>50 -120 ug/g Borderline Re-evaluate in 4-6 weeks >120 ug/g Abnormal Repeat as clinically indicatedPerformed at: - [facility] [id number] Director: Luis Barnett MD, Phone: [phone] ENTERIC PATHOGEN PANEL STOOL on 08-15-2024 EP PANEL Normal Reference Ran ge = Not Detected Not detected for Campylobacter group, Salmonella species, Shigella species, Vibrio Group, Yersinia enterocolitica, EHEC (Shiga Toxin 1, Shiga Toxin 2), Norovirus Gl/Gll, and Rotavirus A. Other common stool pathogens are not detected on this panel include: Aeromonas/Plesiomonas or parasites. Order testing for these organisms separately if suspected. This is an amplified DNA test which makes it both specific and sensitive. CAMPYLOBACTER Not Detected Norovirus Not Detected Rotavirus Not Detected Salmonella Not Detected Shiga Toxin Not Detected Shigella sp. Not Detected VIBRIO Not Detected Yersinia Not Detected Normal [facility] Comment on above: Performed By: #### L 7400.3300, L7000.0700, M100.6796, M100.0605, L7000.0750, M600.5000, M100.637 ####[facility] [address] [facility] [place], [address] Elastase.pancreatic (Stl) [M ass/Mass]Ordered By: Jayla Dixon on 08-15-2024 Stool Pancreatic Elastase 637 >200 [facility] Comment on above: Result Units: ug Nelly st./gStool of watery consistency received. Since watery stool isinherently dilute, low test results should be interpretedwith caution. Retesting on formed stool, if possible, isrecommended. Severe Pancreatic Insufficiency: <100 Moderate Pancreatic Insufficiency: 100 - 200 Normal: >200 G. lamblia Ag IA Ql (Stl)Ord ered By: Jayla Dixon on 08-15-2024 Stool Giardia Antigen Negative Negative [facility] Comment on above: Performed at: [address] [id number] Director: Luis Barnett MD, Phone: [phone] at: [facility] [id number] Director: Thai James PhD, Phone: [phone] Lactoferrin IA Ql (Stl)Order ed By: Jayla Dixon on 08-15-[address] [facility] Ova and parasitesOrdered By: Jayla Dixon on 08-15-[address] [facility] Stool Lactoferrin/WBCon 07-24 WBCST Normal Reference Ran ge = Negative Fecal WBC Lactoferrin Negative: No Fecal WBC Lactoferrin present Normal [facility] Comment on above: Performed By: #### L 7400.3300, L7000.0700, M100.6796, M100.0605, L7000.0750, M600.5000, M100.637 ####[facility] [address] [place], [place], [address] Stool enteric pathogen panel by probe and target amplification methodOrdered By: Jayla Dixon on 08-15-[address] [facility] 36on 06-30-2024 36 Noted Normal [facility] 36on 06-29-2024 36 S: [facility] calling CAC d/t medication problem B: butalbital- acetaminophen- caffeine 50-325-40 mg tablet A: pharmacist calling stating received a controlled substance script that did not go through the controlled substance part of e script. States it does not list fouzia on script. Entire script with FOUZIA is in epic. R: Hung up with pharmacist and called [facility] to verify speaking with arsenio toure and gave requested information/ verification of script. Pt advised to call back with worsening of symptoms, concern or questions. Pt verbalized understanding. Reason for Disposition ? Pharmacy calling with prescription question and triager answers question Protocols used: Medication Question [id number] Normal [facility] Progress Noteon 06-29-2024 Progress Note [facility] NEUROLOGY OUTPATIENT CLINIC Primary Care Physician: Mark Shabazz Chief Complaint: Chief Complaint Patient presents with Procedure TPI Main Diagnosis: Diagnosis Plan 1. Myofascial pain lidocaine (Xylocaine) 1 % injection 9 mL triamcinolone acetonide (Kenalog) injection 10 mg 2. Intractable chronic migraine without aura and without status migrainosus History: given by the patient and EMR. EMR was personally reviewed prior to today's visit and included review of prior notes and intermediate communications. HPI: Ms. Michelle Carlin is a 43 y.o. female who is seen in the NEUROLOGY CLINIC of [facility] for migraines. Patient states she has suffered migraines since 2006. Patient has been on fioricet for abortive which worked for awhile but unfortunately no longer is as effective. Patient states her headaches are frontal/temporal, bilateral. She describes her pain as a dull pain. She has associated symptoms of photophobia, phonophobia, visual aura, nausea, and dizziness. Patient complains of having headaches 6 out of 10 days with 60 % of the headaches evolving into a migraine. Patient is positive for thyroid disease. She has family history of migraines with her Mother. Other family history: Cancer, diabetes, and hypertension. Patient is a non-smoker and drinks alcohol occasionally. The last visit was 06/05/2024 with this provider where the patient received Botox injections for the prevention of migraine pain. Headache characteristics: Description of pain: throbbing pain, bilateral in the frontal area, bilateral in the temporal area. Duration of individual headaches: 4-36 hour(s), frequency weekly. Associated symptoms: aura, light sensitivity, nausea, visual disturbance, and sound sensitivity. Pain relief: prescription medications - triptan therapy. Precipitating factors: stress and weather changes. INTERVAL HISTORY: Today, the patient returns for follow up of migraine control after receiving Botox injections for the prevention and treatment of migraine. The patient states Botox is helping control migraine pain. The patient reports increased neck and shoulder pain which she feels is resolved with TPI. The patient would like to receive TPI again today. TPI provided as documented below. The patient uses fioricet and ketorolac for treatment of migraine pain. The patient continues with daily headache pain. Discussed adding prednisone for 10 days to help break current migraine cycle which the patient agreed to trying. Patient denies any side effects from medications and no new neurological deficits. Current migraine Meds: Botox Fioricet Nurtec Side effects: No known side effects Previous medication trials: Imitrex Maxalt Emgality Phenergan Benedryl Topamax Ubrelvy Amitriptyline Nortriptyline Past Medical History: Diagnosis Date ADHD (attention deficit hyperactivity disorder) Anxiety Cluster headache Headache Headache, tension-type Migraine Numbness Trigeminal neuralgia Vision loss Past Surgical History: Procedure Laterality Date COLPOSCOPY 2014 HYSTEROSCOPY 2015 plus D&C OOPHORECTOMY Left 2009 OVARIAN CYST SURGERY Right 2013 Allergies Allergen Reactions Amoxicillin-Pot Clavulanate Other reaction(s): Hives and/or rash Hydrocodone-Acetaminophen Nausea And Vomiting Other reaction(s): Severe nausea & vomiting, Vomiting Shellfish-Derived Products Tramadol Hallucinations @HOMEMEDS@ Current Outpatient Medications Medication Sig Dispense Refill ALPRAZolam (Xanax) 0.5 MG tablet Bacillus Coagulans-Inulin (Probiotic) 1-250 BILLION-MG capsule Take by mouth. cholecalciferol (Vitamin D-3) 50 MCG (2000 UT) capsule Take by mouth. diphenhydrAMINE (Benadryl Allergy) 25 MG capsule Take 50 mg by mouth. estradiol (Estrace) 2 MG tablet Take 2 mg by mouth daily. fremanezumab (Ajovy) 225 MG/1.5ML auto-injector Inject 1 Pen (225 mg) under the skin every 30 (thirty) days. 1.5 mL 2 ketorolac (Toradol) 60 MG/2ML solution Inject 2 mL (60 mg) into the shoulder, thigh, or buttocks every 6 hours as needed (Migraine pain). Do not exceed 5 doses in one week or 10 doses in one month. 20 mL 3 levothyroxine (Synthroid, Levoxyl) 50 MCG tablet Take 50 mcg by mouth daily. omega-3 acid ethyl esters (Lovaza) 1 g capsule Take 1 g by mouth 2 times daily. ondansetron ODT (Zofran-ODT) 4 MG disintegrating tablet dissolve 1 tablet under the tongue every 8 hours if needed for nausea OR vomiting Strength: 4 mg 60 tablet 5 Syringe 25G X 1 3 ML misc 1 Syringe Once as needed (Migraine) for up to 1 dose. 20 each 3 therapeutic multivitamin-minerals (Theragran-M) tablet Take 1 tablet by mouth daily. lisdexamfetamine (Vyvanse) 30 MG capsule Take 30 mg by mouth every morning. onabotulinumtoxinA (Botox) 200 units injection Provider to inject 200 units intramuscularly every 12 weeks for migraine prevention. 1 each 3 tiZANidine (Zanaflex) (more content not included)... Normal [facility] 36on 06-26-2024 36 The patient has [employer] Botox appt on 09/05/24. The Botox is approved under the patient's Medical Benefit and should be done as Buy and Bill. See Media tab for Approval letter. BOTOX IS BUY AND BILL!!! Medication: Botox # of Unit to be Administered: 200 Prior Authorization: Approved (medical benefit) [place] reference #: [id number] Approval dates: 06/22/24-06/22/2025 Number of Units Approved: 800 units 4 treatments [facility] Gastric Emptying Studyon Gastric Emptying Study [facility] Imaging Services [address] [place] [address] Gastric Emptying Study MR#: [id number] Acct: [id number] Name: MICHELLE CARLIN Rep #: [id number] : 1980 F 43 From: Willy Walker PCP: Dr. Mark Shabazz MD Status: REG CLI Study: Gastric Emptying Study Date of Exam: 06/23/24 Exam# [id number] Ordering Dr: Jayla Dixon IMAGE CONSULTANT-C :[id number] CLINICAL: 43-year-old female with history of abdominal pain and early satiety. SEMI-SOLID PHASE 99m Tc SULFUR COLLOID GASTRIC EMPTYING STUDY COMPARISON: Abdominal ultrasound report 06/05/2024, CT of the abdomen-pelvis report 06/06/2024 FINDINGS: The patient was administered 1.1 mCi of 99m Tc sulfur colloid mixed with oatmeal and consumed per os. Image acquisitions in the anterior-posterior projections were obtained for 60 minutes. There is prompt visualization of the stomach. There is no gastroesophageal reflux identified. The T ? raw data emptying was calculated to be 46.84 minutes, (Normal: 12-56 minutes). NM/Gastric Emptying Study IMPRESSION: 1. NORMAL 99m Tc sulfur colloid semi-solid phase (oatmeal) gastric emptying imaging examination. A. There is normal and preserved semi-solid phase gastric emptying compared to normal controls. (Greg et al, J Nucl Med Tech 38: 186, 2010). Electronically Signed: Willy Glass DO at 9:32 EDT , CC: GRAHAM Dixon; Dr. Mark Shabazz MD Tabulating Supervisor: Signed Normal [facility] Colonoscopy Reporton 024 Colonoscopy Report [facility] Medical Records Department [address] [place] [address] Colonoscopy Report MR#: [id number] Acct: [id number] Name: MICHELLE CARLIN ANN Rep #: [id number] : 1980 43 From: Unruly Toscano DO PCP: Dr. Mark Shabazz MD Status:[facility] Patient Name: Michelle Carlin Procedure Date: 06/13/2024 3:17 PM Date of : 1980 Age: 43 Procedure: Colonoscopy Indications: Clinically significant diarrhea of unexplained origin Providers: Unruly Toscano DO Referring MD: Unruly Toscano DO Medicines: Monitored Anesthesia Care Patient Profile: This is a 43 year old female. Refer to note in patient chart for documentation of history and physical. Patient has symptoms of chronic abdominal cramping, chronic epigastric abdominal pain and chronic dyspepsia. Last Colonoscopy: date unknown. Unable to locate last colonoscopy report. Complications: No immediate complications. Procedure: Pre-Anesthesia Assessment: - Prior to the procedure, a History and Physical was performed, and patient medications and allergies were reviewed. The patient is competent. The risks and benefits of the procedure and the sedation options and risks were discussed with the patient. All questions were answered and informed consent was obtained. Patient identification and proposed procedure were verified by the physician in the pre-procedure area. Mental Status Examination: alert and oriented. Airway Examination: normal oropharyngeal airway and neck mobility. Respiratory Examination: clear to auscultation. CV Examination: normal. Prophylactic Antibiotics: The patient does not require prophylactic antibiotics. Prior Anticoagulants: The patient has taken no anticoagulant or antiplatelet agents. ASA Grade Assessment: II - A patient with mild systemic disease. After reviewing the risks and benefits, the patient was deemed in satisfactory condition to undergo the procedure. The anesthesia plan was to use moderate sedation / analgesia (conscious sedation). Immediately prior to administration of medications, the patient was re-assessed for adequacy to receive sedatives. The heart rate, respiratory rate, oxygen saturations, blood pressure, adequacy of pulmonary ventilation, and response to care were monitored throughout the procedure. The physical status of the patient was re-assessed after the procedure. After I obtained informed consent, the scope was passed under direct vision. Throughout the procedure, the patient's blood pressure, pulse, and oxygen saturations were monitored continuously. The Colonoscope was introduced through the anus and advanced to the terminal ileum. The colonoscopy was performed without difficulty. The patient tolerated the procedure well. The quality of the bowel preparation was adequate. The terminal ileum, ileocecal valve, appendiceal orifice, and rectum were photographed. Scope In: 3:19:10 PM Scope Withdrawal Time 0 hours 11 minutes 36 seconds Scope Out: 3:33:15 PM Total Procedure Duration Time 0 hours 14 minutes 5 seconds Findings: The perianal exam was abnormal because there was very poor rectal tone. A 5 mm polyp was found in the cecum. The polyp was sessile. The polyp was removed with a jumbo cold forceps. Resection and retrieval were complete. Verification of patient identification for the specimen was done. Estimated blood loss was minimal. An area of mildly congested mucosa was found in the recto-sigmoid colon, in the sigmoid colon, in the transverse colon and in the cecum. Biopsies were taken with a cold forceps for histology. Verification of patient identification for the specimen was done. Estimated blood loss was minimal. The terminal ileum appeared normal. Biopsies were taken with a cold forceps for histology. Verification of patient identification for the specimen was done. Estimated blood loss was minimal. Impression: - Abnormal perianal exam. - One 5 mm polyp in the cecum, removed with a jumbo cold forceps. Resected and retrieved. - Congested mucosa in the recto-sigmoid colon, in the sigmoid colon, in the transverse colon and in the cecum. Biopsied. - The examined portion of the ileum was normal. Biopsied. Recommendation: - Discharge patient to home. - Resume previous diet. - Continue present medications. - Await pathology results. - Repeat colonoscopy in 5 years for surveillance. Procedure Code(s): --- Professional --- 29878, Colonoscopy, flexible; with biopsy, single or multiple CPT copyright 2021 [employer]. All rights reserved. The codes documented in this report are preliminary and upon big machine consultant review may be revised to meet current compliance requirements. Unruly Toscano DO 06/13/2024 3:45:22 PM This report has been signed electronically. Number of Addenda: 0 Note Initiated On: (more content not included)... Normal [facility] EGD Reporton 06-13-2024 EGD Report [facility] Medical Records Department [address] [place] [address] EGD Report MR#: [id number] Acct: [id number] Name: MICHELLE CARLIN ANN Rep #: [id number] : 1980 43 From: Unruly Toscano DO PCP: Dr. Mark Shabazz MD Status:[facility] Patient Name: Michelle Carlin Procedure Date: 06/13/2024 2:59 PM Date of : 1980 Age: 43 Procedure: Upper GI endoscopy Indications: Epigastric abdominal pain Providers: Unruly Toscano DO Referring MD: Unruly Toscano DO Medicines: Monitored Anesthesia Care Patient Profile: This is a 43 year old female. Refer to note in patient chart for documentation of history and physical. Patient has symptoms of chronic abdominal cramping, chronic epigastric abdominal pain and chronic dyspepsia. Complications: No immediate complications. Procedure: Pre-Anesthesia Assessment: - Prior to the procedure, a History and Physical was performed, and patient medications and allergies were reviewed. The patient is competent. The risks and benefits of the procedure and the sedation options and risks were discussed with the patient. All questions were answered and informed consent was obtained. Patient identification and proposed procedure were verified by the physician in the pre-procedure area. Mental Status Examination: alert and oriented. Airway Examination: normal oropharyngeal airway and neck mobility. Respiratory Examination: clear to auscultation. CV Examination: normal. Prophylactic Antibiotics: The patient does not require prophylactic antibiotics. Prior Anticoagulants: The patient has taken no anticoagulant or antiplatelet agents. ASA Grade Assessment: II - A patient with mild systemic disease. After reviewing the risks and benefits, the patient was deemed in satisfactory condition to undergo the procedure. The anesthesia plan was to use moderate sedation / analgesia (conscious sedation). Immediately prior to administration of medications, the patient was re-assessed for adequacy to receive sedatives. The heart rate, respiratory rate, oxygen saturations, blood pressure, adequacy of pulmonary ventilation, and response to care were monitored throughout the procedure. The physical status of the patient was re-assessed after the procedure. After obtaining informed consent, the endoscope was passed under direct vision. Throughout the procedure, the patient's blood pressure, pulse, and oxygen saturations were monitored continuously. The Colonoscope was introduced through the mouth, and advanced to the second part of duodenum. The upper GI endoscopy was accomplished without difficulty. The patient tolerated the procedure well. Scope In: 3:10:51 PM Scope Out: 3:16:59 PM Total Procedure Duration Time 0 hours 6 minutes 8 seconds Findings: There were esophageal mucosal changes suspicious for short-segment Gage's esophagus present in the lower third of the esophagus. The maximum longitudinal extent of these mucosal changes was 2 cm in length. Mucosa was biopsied with a cold forceps for histology in a targeted manner at intervals of 1 cm in the lower third of the esophagus. One specimen bottle was sent to pathology. Verification of patient identification for the specimen was done. Estimated blood loss was minimal. A hiatal hernia was present. Diffuse moderate inflammation characterized by erythema and linear erosions was found in the entire examined stomach. Biopsies were taken with a cold forceps for histology. Verification of patient identification for the specimen was done. Estimated blood loss was minimal. Biopsies were taken with a cold forceps for Helicobacter pylori testing. Verification of patient identification for the specimen was done. Estimated blood loss was minimal. Patchy moderately erythematous mucosa without active bleeding and with no stigmata of bleeding was found in the first portion of the duodenum and in the second portion of the duodenum. Biopsies were taken with a cold forceps for histology. Verification of patient identification for the specimen was done. Estimated blood loss was minimal. 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 Biopsied. - Hiatal hernia. - Bile gastritis. Biopsied. - Erythematous duodenopathy. Biopsied. Recommendation: - Discharge patient to home. - Resume previous diet. - Continue present medications. - Await pathology results. Procedure Code(s): --- Professional --- 52832, Esophagogastroduodenoscopy, flexible, transoral; with biopsy, single or multiple CPT copyright 2021 [employer]. All rights reserved. The codes documented in this report are preliminary and upon big machine consultant review may be revised to meet current compliance requirements. Unruly Toscano DO 06/13/2024 3:40:18 PM This report has (more content not included)... [facility] MR/POSTOP.[facility] Medical Records Department [address] [place] [address] Anesthesia Postop Eval I 06/13/24 1544 MR#: [id number] Acct: [id number] Name: MICHELLE CARLIN ANN Rep #: [id number] : 1980 43 From: Triston Hill PCP: Dr. Mark Shabazz MD Status:REG SDC Y Race: C Location: [place] [address] Anesthesia: Postop Eval I Current Vital Signs Temperature: 97 F Pulse Rate: 67 Blood Pressure: 100/60 Respiratory Rate: 14 Pulse Ox: 99 Oxygen Delivery Method: Room Air Assessment Airway patent: Yes Spontaneous unlabored respirations: Yes Mental status: Awake and Calm nausea: No Vomiting: No Anesthesia Complication: No Fluid Hydration Crystalloid volume administer (ml): 60 Total IV fluid infused: 60 Progress Note Anesthesia document: Postop Eval 1 completed: Yes 06/13/24 1545 Date Triston Amayaignclaudia Signature: Date CC: Signed Normal [facility] [id number] 06-13-2024 MR/POSTOPAN2 [facility] Medical Records Department [address] [place] [address] Anesthesia Postop Eval II 06/13/241716 MR#: [id number] Acct: [id number] Name: MICHELLE CARLIN Rep #: [id number] : 1980 43 From: Domingo Gupta MD PCP: Dr. Mark Shabazz MD Status:DEP [facility] [place] Race: C Location: EN Anesthesia Postop Eval I Sum Postop Eval Completion status Anesthesia document: Postop Eval 1 completed: Yes Anesthesia Postop Eval I Summary Anesthesia Postop Eval I Summary: Anesthesia Postop Eval I: Assessment Summary Airway patent Yes 06/13/24 15:45 [email or web address] Spontaneous unlabored Yes 06/13/24 15:45 [email or web address] respirations Mental status Awake,Calm 06/13/24 15:45 [email or web address] nausea No 06/13/24 15:45 [email or web address] Vomiting No 06/13/24 15:45 [email or web address] Anesthesia Postop Eval I: Fluid Summary Crystalloid volume administer 60 06/13/24 15:45 [email or web address] (ml) Colloids volume administered ( ml) Blood Product volume administered (ml) Total IV fluid infused 60 06/13/24 15:45 [email or web address] Anesthesia Postop Eval I: Summary Notes Anesthesia Complication No 06/13/24 15:45 [email or web address] Anesthesia Complication Comment: Post-operative progress note Anesthesia: Postop Eval II Evaluation Mental status: Awake Pain Level: 0 nausea: No Vomiting: No 06/13/241716 Date Domingo Amayaignclaudia Signature: Date CC: Signed [facility] Special Stain Group Ion 05-24 Special Stain Group I -------- Patient Age/Sex Location Account Attending Physician -------- MICHELLE CARLIN 43/F EN [id number] Unruly Toscano DO -------- Specimen: [id number] Received: 06/13/24 Status: THOMAS Hardy Num: [id number] Spec Type: COLON BX Subm Dr: Unruly Toscano DO HEADER OPERATION: Colonoscopy with polypectomy and biopsy, EGD with biopsy PRE-OP DIAGNOSIS: Irritable bowel syndrome with diarrhea TISSUE SUBMITTED: A- Duodenum biopsy, B- Distal esophagus biopsy, C- Cecal polyp, D- Terminal ileum biopsy, E- Random colon biopsy, F- Rectum biopsy -------- MICROSCOPIC DIAGNOSIS A. Duodenum, biopsy: Fragments of small intestinal mucosa, no pathologic diagnosis. Fragments of gastric mucosa with mild chronic inflammation. See comment. B. Distal esophagus, biopsy: Fragments of gastroesophageal mucosa with chronic inflammation. Intestinal metaplasia (goblet cell metaplasia) not identified. See comment. C. Cecal polyp, biopsy: Tubular adenoma.D. Terminal ileum, biopsy: Fragments of small intestinal mucosa, no pathologic diagnosis. E. Colon, random biopsy: Fragments of colonic mucosa, no pathologic diagnosis. F. Rectum, biopsy: Fragments of colonic mucosa, no pathologic diagnosis. . 06/15/2024 COMMENT A. Immunohistochemistry for H. pylori can be performed if clinically indicated. Please notify the laboratory if it is needed. B. Alcian blue/PAS stain with matched control is used in the evaluation of the specimen. MICROSCOPIC DESCRIPTION Slides are reviewed. GROSS DESCRIPTION A. Received in fixative is one container labeled with the patient's name and designated Duodenum biopsy. The specimen consists of multiple irregular fragments of light murphy soft tissue that in aggregate measure 2.0 x 0.5 x 0.1 cm. The specimen is totally submitted in one cassette. B. Received in fixative is one container labeled with the patient's name and designated Distal esophagus biopsy. The specimen consists of multiple irregular fragments of light murphy soft tissue that in aggregate measure 0.6 x 0.3 x 0.1 cm. The specimen is totally -------- Patient Age/Sex Location Account Attending Physician -------- MICHELLE CARLIN 43/F EN [id number] Unruly Toscano DO -------- submitted in one cassette. C. Received in fixative is one container labeled with the patient's name and designated Cecal polyp biopsy. The specimen consists of one irregular fragment of light murphy soft tissue that measures 0.3 x 0.3 x 0.1 cm. The specimen is totally submitted in one cassette. D. Received in fixative is one container labeled with the patient's name and designated Terminal ileum biopsy. The specimen consists of two irregular fragments of light murphy soft tissue that in aggregate measure 0.6 x 0.4 x 0.1 cm. The specimen is totally submitted in one cassette. E. Received in fixative is one container labeled with the patient's name and designated Random colon biopsy. The specimen consists of multiple irregular fragments of light murphy soft tissue that in aggregate measure 1.5 x 0.5 x 0.1 cm. The specimen is totally submitted in one cassette. F. Received in fixative is one container labeled with the patient's name and designated Rectum biopsy. The specimen consists of multiple irregular fragments of light murphy soft tissue that in aggregate measure 1.0 x 0.2 x 0.1 cm. The specimen is totally submitted in one cassette. SJ 06/14/2024 TC:3 [facility]:[id number] -------- Patient Age/Sex Location Account Attending Physician -------- MICHELLE CARLIN 43/F EN [id number] Unruly Everton, DO -------- Signed (signature on file) Dr. Michael Shields MD 06/15/24 1317 -------- [address] [facility] Comment on above: Performed By: #### P SSI ####[facility] [id number] [place], [address] DOMI Comprehensive Panelon DOMI TABLE Comment Normal . [facility] Comment on above: Order Comment: FT4 T SH-RASHARD Chang/DESTINY-OTHER TESTS-DESTINY Result Comment: Auto antibody Disease Association Condition Frequency --------- Antinuclear Antibody, SLE, mixed connective Direct (DOMI-D) tissue diseases --------- dsDNA SLE 40 - 60% --------- Chromatin Drug induced SLE 90% SLE 48 - 97% --------- SSA (Ro) SLE 25 - 35% Sjogren's Syndrome 40 - 70% Lupus 100% --------- SSB (La) SLE 10% Sjogren's Syndrome 30% --------- Sm (anti-Velásquez) SLE 15 - 30% --------- UNIX ADMINISTRATOR Mixed Connective Tissue Disease 95% (U1 nRNP, SLE 30 - 50% anti-ribonucleoprotein) Polymyositis and/or Dermatomyositis 20% --------- Scl-70 (antiDNA Scleroderma (diffuse) 20 - 35% topoisomerase) Crest 13% --------- Ilvia-1 Polymyositis and/or Dermatomyositis 20 - 40% --------- Centromere B Scleroderma - Crest variant 80% Performed By: #### L 3100.3425, L501.9520, L3410.2400, L2100.0000, L506.0400, L501.6710, L5500.0550, L504.2610, L500.4050, L501.92296, L101.9900, L3100.5440, L3300.1200, L3200.1100 ####[facility] [id number] [facility] [place], [address] ANTI-CENT B AB <0.2 Normal 0.0-0.9 [facility] Comment on above: Order Comment: FT4 T SH-RASHARD W/DIXON-OTHER TESTS-DIXON Performed By: #### L 3100.3425, L501.9520, L3410.2400, L2100.0000, L506.0400, L501.6710, L5500.0550, L504.2610, L500.4050, L501.44540, L101.9900, L3100.5440, L3300.1200, L3200.1100 ####[facility] [address] [facility] [place], [address] ANTI-DNA (DS)AB 1 IU/mL Normal 0-9 [facility] Comment on above: Order Comment: FT4 T SH-RANNEYDUPLICATE W/DIXON-OTHER TESTS-DIXON Result Comment: Nega tive <5 Equivocal 5 - 9 Positive >9 Performed By: #### L 3100.3425, L501.9520, L3410.2400, L2100.0000, L506.0400, L501.6710, L5500.0550, L504.2610, L500.4050, L501.65044, L101.9900, L3100.5440, L3300.1200, L3200.1100 ####[facility] [address] [place], [place], [id number] ANTI-LIVIA-1 <0.2 Normal 0.0-0.9 [facility] Comment on above: Order Comment: FT4 T SH-HARIKADUARIELLE W/DIXON-OTHER TESTS-DIXON Performed By: #### L 3100.3425, L501.9520, L3410.2400, L2100.0000, L506.0400, L501.6710, L5500.0550, L504.2610, L500.4050, L501.02054, L101.9900, L3100.5440, L3300.1200, L3200.1100 ####[facility] [address] [place], [address] ANTI-SS-A < 0.2 Normal 0.0-0.9 [facility] Comment on above: Order Comment: FT4 T SH-HARIKADUPLICATE W/DIXON-OTHER TESTS-DIXON Performed By: #### L 3100.3425, L501.9520, L3410.2400, L2100.0000, L506.0400, L501.6710, L5500.0550, L504.2610, L500.4050, L501.63019, L101.9900, L3100.5440, L3300.1200, L3200.1100 ####[facility] [address] [place], [place], [id number] ANTI-SS-B < 0.2 Normal 0.0-0.9 [facility] Comment on above: Order Comment: FT4 T SH-RANMICHELLEDUPLICATE W/DIXON-OTHER TESTS-DIXON Performed By: #### L 3100.3425, L501.9520, L3410.2400, L2100.0000, L506.0400, L501.6710, L5500.0550, L504.2610, L500.4050, L501.88643, L101.9900, L3100.5440, L3300.1200, L3200.1100 ####[facility] [address] [place], [place], [id number] ANTICHROMATIN <0.2 Normal 0.0-0.9 [facility] Comment on above: Order Comment: FT4 T SH-RANNEYDUPLICATE W/DIXON-OTHER TESTS-DIXON Performed By: #### L 3100.3425, L501.9520, L3410.2400, L2100.0000, L506.0400, L501.6710, L5500.0550, L504.2610, L500.4050, L501.72193, L101.9900, L3100.5440, L3300.1200, L3200.1100 ####[facility] [address] [place], [place], [id number] ANTISCLERODERM <0.2 Normal 0.0-0.9 [facility] Comment on above: Order Comment: FT4 T SH-RANNEYDUPLICATE W/DIXON-OTHER TESTS-DIXON Performed By: #### L 3100.3425, L501.9520, L3410.2400, L2100.0000, L506.0400, L501.6710, L5500.0550, L504.2610, L500.4050, L501.31219, L101.9900, L3100.5440, L3300.1200, L3200.1100 ####[facility] [address] [place], [place], [id number] UNIX ADMINISTRATOR Ab 0.2 AI Normal 0.0-0.9 [facility] Comment on above: Order Comment: FT4 T SH-RANNEYDUPLICATE W/DIXON-OTHER TESTS-DIXON Performed By: #### L 3100.3425, L501.9520, L3410.2400, L2100.0000, L506.0400, L501.6710, L5500.0550, L504.2610, L500.4050, L501.18007, L101.9900, L3100.5440, L3300.1200, L3200.1100 ####[facility] [address] [place], [place], [phone] VELÁSQUEZ Ab <0.2 Normal 0.0-0.9 [facility] Comment on above: Order Comment: FT4 T SH-RANMICHELLEDUPLICATE W/DIXON-OTHER TESTS-DIXON Performed By: #### L 3100.3425, L501.9520, L3410.2400, L2100.0000, L506.0400, L501.6710, L5500.0550, L504.2610, L500.4050, L501.70064, L101.9900, L3100.5440, L3300.1200, L3200.1100 ####[facility] [address] [place], [place], [id number] L5500.0550on 06-11-2024 BEEF 0.10 kU/L Abnormal Class 0/I [facility] Comment on above: Order Comment: FT4 T SH-RANMICHELLEDUPLICATE W/DIXON-OTHER TESTS-DIXON Performed By: #### L 3100.3425, L501.9520, L3410.2400, L2100.0000, L506.0400, L501.6710, L5500.0550, L504.2610, L500.4050, L501.56073, L101.9900, L3100.5440, L3300.1200, L3200.1100 ####[facility] [address] [place], [place], [phone] CHOCOLATE <0.[address] [facility] Comment on above: Order Comment: FT4 T SH-RANNEYDUPLICATE W/DIXON-OTHER TESTS-DIXON Performed By: #### L 3100.3425, L501.9520, L3410.2400, L2100.0000, L506.0400, L501.6710, L5500.0550, L504.2610, L500.4050, L501.64533, L101.9900, L3100.5440, L3300.1200, L3200.1100 ####[facility] [address] [place], [place], [phone] CODFISH <0.[address] [facility] Comment on above: Order Comment: FT4 T SARA-RASHARD W/DESTINY-OTHER TESTS-DESTINY Performed By: #### L 3100.3425, L501.9520, L3410.2400, L2100.0000, L506.0400, L501.6710, L5500.0550, L504.2610, L500.4050, L501.03556, L101.9900, L3100.5440, L3300.1200, L3200.1100 ####[facility] [address] [place], [place], [phone] COMMENT Comment Normal . [facility] Comment on above: Order Comment: SUKI4 T SH-RASHARD W/DESTINY-OTHER TESTS-DIXON Result Comment: Bryan rodriguez of Specific IgE Class Description of Class ----- < 0.10 0 Negative 0.10 - 0.31 0/I Equivocal/Low 0.32 - 0.55 I Low 0.56 - 1.40 II Moderate 1.41 - 3.90 III High 3.91 - 19.00 IV Very High 19.01 - 100.00 V Very High >100.00 Very High Performed By: #### L 3100.3425, L501.9520, L3410.2400, L2100.0000, L506.0400, L501.6710, L5500.0550, L504.2610, L500.4050, L501.41661, L101.9900, L3100.5440, L3300.1200, L3200.1100 ####[facility] [address] [place], [place], [phone] CORN <0.[address] [facility] Comment on above: Order Comment: FT4 T SH-RANNEYDUPLICATE W/DIXON-OTHER TESTS-DIXON Performed By: #### L 3100.3425, L501.9520, L3410.2400, L2100.0000, L506.0400, L501.6710, L5500.0550, L504.2610, L500.4050, L501.06509, L101.9900, L3100.5440, L3300.1200, L3200.1100 ####[facility] [address] [facility] [place], [place], [phone] EGG, WHOLE <0.[address] [facility] Comment on above: Order Comment: FT4 T SH-RANNEYDUPLICATE W/DIXON-OTHER TESTS-DIXON Performed By: #### L 3100.3425, L501.9520, L3410.2400, L2100.0000, L506.0400, L501.6710, L5500.0550, L504.2610, L500.4050, L501.54627, L101.9900, L3100.5440, L3300.1200, L3200.1100 ####[facility] [address] [place], [place], [phone] MILK (COW) <0.[address] [facility] Comment on above: Order Comment: FT4 T SH-RANNEYDUPLICATE W/DIXON-OTHER TESTS-DIXON Performed By: #### L 3100.3425, L501.9520, L3410.2400, L2100.0000, L506.0400, L501.6710, L5500.0550, L504.2610, L500.4050, L501.04561, L101.9900, L3100.5440, L3300.1200, L3200.1100 ####[facility] [address] [place], [place], [phone] MUSSELS <0.[address] [facility] Comment on above: Order Comment: FT4 T SH-RANNEYDUPLICATE W/DIXON-OTHER TESTS-DIXON Performed By: #### L 3100.3425, L501.9520, L3410.2400, L2100.0000, L506.0400, L501.6710, L5500.0550, L504.2610, L500.4050, L501.48644, L101.9900, L3100.5440, L3300.1200, L3200.1100 ####[facility] [address] [place], [place], [phone] PEANUT <0.[address] [facility] Comment on above: Order Comment: FT4 T SH-RANNEYDUPLICATE W/DIXON-OTHER TESTS-DIXON Performed By: #### L 3100.3425, L501.9520, L3410.2400, L2100.0000, L506.0400, L501.6710, L5500.0550, L504.2610, L500.4050, L501.60106, L101.9900, L3100.5440, L3300.1200, L3200.1100 ####[facility] [address] [place], [place], [phone] PORK <0.[address] [facility] Comment on above: Order Comment: FT4 T SH-RANNEYDUPLICATE W/DIXON-OTHER TESTS-DIXON Performed By: #### L 3100.3425, L501.9520, L3410.2400, L2100.0000, L506.0400, L501.6710, L5500.0550, L504.2610, L500.4050, L501.18291, L101.9900, L3100.5440, L3300.1200, L3200.1100 ####[facility] [address] [place], [place], [phone] SALMON <0.[address] [facility] Comment on above: Order Comment: FT4 T SH-RANMICHELLEDUPLICATE W/DIXON-OTHER TESTS-DIXON Performed By: #### L 3100.3425, L501.9520, L3410.2400, L2100.0000, L506.0400, L501.6710, L5500.0550, L504.2610, L500.4050, L501.45233, L101.9900, L3100.5440, L3300.1200, L3200.1100 ####[facility] [address] [place], [place], [phone] SHRIMP <0.[address] [facility] Comment on above: Order Comment: FT4 T SH-RANMICHELLEDUPLICATE W/DIXON-OTHER TESTS-DIXON Performed By: #### L 3100.3425, L501.9520, L3410.2400, L2100.0000, L506.0400, L501.6710, L5500.0550, L504.2610, L500.4050, L501.52930, L101.9900, L3100.5440, L3300.1200, L3200.1100 ####[facility] [address] [place], [address] SOYBEAN <0.[address] [facility] Comment on above: Order Comment: 4 T SH-HARIKADUPLICATE W/DIXON-OTHER TESTS-DIXON Performed By: #### L 3100.3425, L501.9520, L3410.2400, L2100.0000, L506.0400, L501.6710, L5500.0550, L504.2610, L500.4050, L501.30716, L101.9900, L3100.5440, L3300.1200, L3200.1100 ####[facility] [address] [place], [place], [phone] TUNA <0.[address] [facility] Comment on above: Order Comment: FT4 T SH-RANNEYDUPLICATE W/DIXON-OTHER TESTS-DIXON Performed By: #### L 3100.3425, L501.9520, L3410.2400, L2100.0000, L506.0400, L501.6710, L5500.0550, L504.2610, L500.4050, L501.25618, L101.9900, L3100.5440, L3300.1200, L3200.1100 ####[facility] [address] [place], [place], [address] WHEAT <0.[address] [facility] Comment on above: Order Comment: FT4 T SH-RANNEYDUPLICATE W/DIXON-OTHER TESTS-DIXON Performed By: #### L 3100.3425, L501.9520, L3410.2400, L2100.0000, L506.0400, L501.6710, L5500.0550, L504.2610, L500.4050, L501.09763, L101.9900, L3100.5440, L3300.1200, L3200.1100 ####[facility] [address] [facility]. [place], [place], [phone] ANCAon 06-08-2024 Atypical pANCA <1:20 Normal Neg:<1:20 [facility] Comment on above: Order Comment: FT4 T SH-RANNEYDUPLICATE W/DIXON-OTHER TESTS-EVANSNUNK Result Comment: The atypical pANCA pattern has been observed in a significant percentage of patients with ulcerative colitis, primary sclerosing cholangitis and autoimmune hepatitis. Performed at: [address] [id number] [employer]: Thai James PhD, Phone: [phone] Performed at: [address] [id number] [employer]: Luis Barnett MD, Phone: [phone] Performed By: #### L 3100.3425, L501.9520, L3410.2400, L2100.0000, L506.0400, L501.6710, L5500.0550, L504.2610, L500.4050, L501.95361, L101.9900, L3100.5440, L3300.1200, L3200.1100 ####[facility] [address] [place], [place], [phone] Cytoplasmic Ab <1:20 Normal Neg:<1:20 [facility] Comment on above: Order Comment: FT4 T SH-RANNEYDUPLICATE W/DIXON-OTHER TESTS-EVANSNUNK Performed By: #### L 3100.3425, L501.9520, L3410.2400, L2100.0000, L506.0400, L501.6710, L5500.0550, L504.2610, L500.4050, L501.06054, L101.9900, L3100.5440, L3300.1200, L3200.1100 ####[facility] [address] [place], [place], [phone] Perinuclear Ab. <1:20 Normal Neg:<1:20 [facility] Comment on above: Order Comment: FT4 T SH-RANNEYDUPLICATE W/DIXON-OTHER TESTS-DESTINYNUNK Result Comment: The presence of positive fluorescence exhibiting P-ANCA or C-ANCA patterns alone is not specific for the diagnosis of Giulia's Granulomatosis (WG) or microscopic polyangiitis. Decisions about treatment should not be based solely on ANCA IFA results. The [employer] ANCA [employer] Consensus recommends follow up testing of positive sera with both OK- 3 and MPO-ANCA enzyme immunoassays. As many as 5% serum samples are positive only by EIA. Ref. AM J Clin Pathol 1999;111:507-513. Performed By: #### L 3100.3425, L501.9520, L3410.2400, L2100.0000, L506.0400, L501.6710, L5500.0550, L504.2610, L500.4050, L501.20004, L101.9900, L3100.5440, L3300.1200, L3200.1100 ####[facility] [address] [facility]. [place], [place], [phone] Celiac Disease Profileon ENDOMYSIAL IGA Negative Normal Negative [facility] Comment on above: Order Comment: FT4 T SH-RANNEYDUPLICATE W/DIXON-OTHER TESTS-EVANSNUNK Performed By: #### L 3100.3425, L501.9520, L3410.2400, L2100.0000, L506.0400, L501.6710, L5500.0550, L504.2610, L500.4050, L501.50665, L101.9900, L3100.5440, L3300.1200, L3200.1100 ####[facility] [address] [place], [place], [phone] tTG IGA <2 Normal 0-3 [facility] Comment on above: Order Comment: FT4 T SH-RANNEYDUPLICATE W/DIXON-OTHER TESTS-EVANSNUNK Result Comment: Nega tive 0 - 3 Weak Positive 4 - 10 Positive >10 Tissue Transglutaminase (tTG) has been identified as the endomysial antigen. Studies have demonstr- ated that endomysial IgA antibodies have over 99% specificity for gluten sensitive enteropathy. Performed By: #### L 3100.3425, L501.9520, L3410.2400, L2100.0000, L506.0400, L501.6710, L5500.0550, L504.2610, L500.4050, L501.18148, L101.9900, L3100.5440, L3300.1200, L3200.1100 ####[facility] [address] [place], [place], [phone] PEGGY + Protein Elect, Serumon 06-08-2024 Albumin [Mass/Vol] 3.8 g/dL Normal 2.9-4.4 [facility] Comment on above: Order Comment: FT4 T SH-RANNEYDUPLICATE W/DIXON-OTHER TESTS-EVANSNUNK Performed By: #### L 3100.3425, L501.9520, L3410.2400, L2100.0000, L506.0400, L501.6710, L5500.0550, L504.2610, L500.4050, L501.44655, L101.9900, L3100.5440, L3300.1200, L3200.1100 ####[facility] [address] [place], [place], [phone]) Albumin/Globulin [Mass ratio] 1.5 {ratio} Normal 0.7-1.7 [facility] Comment on above: Order Comment: FT4 T SH-RANNEYDUPLICATE W/DIXON-OTHER TESTS-EVANSNUNK Performed By: #### L 3100.3425, L501.9520, L3410.2400, L2100.0000, L506.0400, L501.6710, L5500.0550, L504.2610, L500.4050, L501.59784, L101.9900, L3100.5440, L3300.1200, L3200.1100 ####[facility] [address] [place], [place], [phone](292) CEDXL-7-KAEU 0.2 g/dL Normal 0.0-0.4 [facility] Comment on above: Order Comment: FT4 T SH-RANNEYDUPLICATE W/DIXON-OTHER TESTS-EVANSNUNK Performed By: #### L 3100.3425, L501.9520, L3410.2400, L2100.0000, L506.0400, L501.6710, L5500.0550, L504.2610, L500.4050, L501.70479, L101.9900, L3100.5440, L3300.1200, L3200.1100 ####[facility] [address] [place], [place], [phone](121) TNIBV-9-JJUT 0.6 g/dL Normal 0.4-1.0 [facility] Comment on above: Order Comment: FT4 T SH-RANNEYDUPLICATE W/DIXON-OTHER TESTS-EVANSNUNK Performed By: #### L 3100.3425, L501.9520, L3410.2400, L2100.0000, L506.0400, L501.6710, L5500.0550, L504.2610, L500.4050, L501.60505, L101.9900, L3100.5440, L3300.1200, L3200.1100 ####[facility] [address] [place], [place], [phone](289) BETA GLOBULIN 0.9 g/dL Normal 0.7-1.3 [facility] Comment on above: Order Comment: FT4 T SH-RANNEYDUPLICATE W/DIXON-OTHER TESTS-EVANSNUNK Performed By: #### L 3100.3425, L501.9520, L3410.2400, L2100.0000, L506.0400, L501.6710, L5500.0550, L504.2610, L500.4050, L501.00353, L101.9900, L3100.5440, L3300.1200, L3200.1100 ####[facility] [address] [place], [place], [phone] GAMMA GLOBULIN 1.0 g/dL Normal 0.4-1.8 [facility] Comment on above: Order Comment: FT4 T SH-RANNEYDUPLICATE W/DIXON-OTHER TESTS-EVANSNUNK Performed By: #### L 3100.3425, L501.9520, L3410.2400, L2100.0000, L506.0400, L501.6710, L5500.0550, L504.2610, L500.4050, L501.72956, L101.9900, L3100.5440, L3300.1200, L3200.1100 ####[facility] [address] [place], [place], [phone]) Globulin (S) [Mass/Vol] 2.7 g/dL Normal 2.2-3.9 [facility] Comment on above: Order Comment: FT4 T SH-RANNEYDUPLICATE W/DIXON-OTHER TESTS-EVANSNUNK Performed By: #### L 3100.3425, L501.9520, L3410.2400, L2100.0000, L506.0400, L501.6710, L5500.0550, L504.2610, L500.4050, L501.55966, L101.9900, L3100.5440, L3300.1200, L3200.1100 ####[facility] [address] [place], [place], [phone](335) PEGGY RESULT,S Comment Normal . [facility] Comment on above: Order Comment: FT4 T SH-RANNEYDUPLICATE W/DIXON-OTHER TESTS-EVANSNUNK Result Comment: No m onoclonality detected. Performed By: #### L 3100.3425, L501.9520, L3410.2400, L2100.0000, L506.0400, L501.6710, L5500.0550, L504.2610, L500.4050, L501.93977, L101.9900, L3100.5440, L3300.1200, L3200.1100 ####[facility] [address] [place], [place], [phone] IMMUNOGLOB A QN 247 mg/dL Normal 87-352 [facility] Comment on above: Order Comment: FT4 T SH-RANNEYDUPLICATE W/DIXON-OTHER TESTS-EVANSNUNK Performed By: #### L 3100.3425, L501.9520, L3410.2400, L2100.0000, L506.0400, L501.6710, L5500.0550, L504.2610, L500.4050, L501.79608, L101.9900, L3100.5440, L3300.1200, L3200.1100 ####[facility] [address] [place], [place], [phone] IMMUNOGLOB G QN 1239 mg/dL Normal 586-1602 [facility] Comment on above: Order Comment: FT4 T SH-RANNEYDUPLICATE W/DIXON-OTHER TESTS-EVANSNUNK Performed By: #### L 3100.3425, L501.9520, L3410.2400, L2100.0000, L506.0400, L501.6710, L5500.0550, L504.2610, L500.4050, L501.17052, L101.9900, L3100.5440, L3300.1200, L3200.1100 ####[facility] [address] [place], [place], [phone] IMMUNOGLOB M QN 138 mg/dL Normal 26-217 [facility] Comment on above: Order Comment: FT4 T SH-RANNEYDUPLICATE W/DIXON-OTHER TESTS-EVANSNUNK Performed By: #### L 3100.3425, L501.9520, L3410.2400, L2100.0000, L506.0400, L501.6710, L5500.0550, L504.2610, L500.4050, L501.05529, L101.9900, L3100.5440, L3300.1200, L3200.1100 ####[facility] [address] [place], [address] M-Leandro Not Observed Normal Not Observed [facility] Comment on above: Order Comment: FT4 T SH-RANNEYDUPLICATE W/DIXON-OTHER TESTS-EVANSNUNK Performed By: #### L 3100.3425, L501.9520, L3410.2400, L2100.0000, L506.0400, L501.6710, L5500.0550, L504.2610, L500.4050, L501.32765, L101.9900, L3100.5440, L3300.1200, L3200.1100 ####[facility] [address] [place], [address] NOTE: Comment Normal . [facility] Comment on above: Order Comment: FT4 T SH-RANNEYDUPLICATE W/DIXON-OTHER TESTS-EVANSNUNK Result Comment: Prot ein electrophoresis scan will follow via computer, mail, or night guard delivery. Performed By: #### L 3100.3425, L501.9520, L3410.2400, L2100.0000, L506.0400, L501.6710, L5500.0550, L504.2610, L500.4050, L501.25227, L101.9900, L3100.5440, L3300.1200, L3200.1100 ####[facility] [address] [place], [place], [phone] Protein [Mass/Vol] 6.5 g/dL Normal 6.0-8.5 [facility] Comment on above: Order Comment: FT4 T SH-HARIKADUPLICATE W/DIXON-OTHER TESTS-EVANSNUNK Performed By: #### L 3100.3425, L501.9520, L3410.2400, L2100.0000, L506.0400, L501.6710, L5500.0550, L504.2610, L500.4050, L501.11234, L101.9900, L3100.5440, L3300.1200, L3200.1100 ####[facility] [address] [place], [place], [phone] Immunoglobulins G/A/M/Uli IMMUNOGLOB E QN 32 IU/mL Normal 6-495 [facility] Comment on above: Order Comment: FT4 T SH-RANMICHELLEDUPLICATE W/DIXON-OTHER TESTS-EVANSNUNK Performed By: #### L 3100.3425, L501.9520, L3410.2400, L2100.0000, L506.0400, L501.6710, L5500.0550, L504.2610, L500.4050, L501.17474, L101.9900, L3100.5440, L3300.1200, L3200.1100 ####[facility] [address] [place], [place], [phone](580) L2100.0000on 06-08-2024 ACCA 46 units Normal 0-90 [facility] Comment on above: Order Comment: FT4 T SH-RANNEYDUPLICATE W/DIXON-OTHER TESTS-EVANSNUNK Result Comment: Nega tive: <80 Equivocal: 80-90 Positive: >90 Performed By: #### L 3100.3425, L501.9520, L3410.2400, L2100.0000, L506.0400, L501.6710, L5500.0550, L504.2610, L500.4050, L501.50522, L101.9900, L3100.5440, L3300.1200, L3200.1100 ####[facility] [address] [place], [place], [phone] ALCA 73 units Abnormal 0-60 [facility] Comment on above: Order Comment: FT4 T SH-HARIKADUPLICATE W/DIXON-OTHER TESTS-EVANSNUNK Result Comment: Nega tive:<55 Equivocal: 55-60 Positive: >60 Performed By: #### L 3100.3425, L501.9520, L3410.2400, L2100.0000, L506.0400, L501.6710, L5500.0550, L504.2610, L500.4050, L501.28905, L101.9900, L3100.5440, L3300.1200, L3200.1100 ####[facility] [address] [place], [place], [phone] AMCA 108 units High 0-100 [facility] Comment on above: Order Comment: FT4 T SH-RANMICHELLEDUPLICATE W/DIXON-OTHER TESTS-EVANSNUNK Result Comment: Nega tive: <90 Equivocal: 90-100 Positive: >100 This test was developed and its performance characteristics determined by [facility]. It has not been cleared or approved by the Food and Drug Administration. The FDA has determined that such clearance or approval is not necessary. Performed By: #### L 3100.3425, L501.9520, L3410.2400, L2100.0000, L506.0400, L501.6710, L5500.0550, L504.2610, L500.4050, L501.57912, L101.9900, L3100.5440, L3300.1200, L3200.1100 ####[facility] [address] [place], [place], [phone] Atypical pANCA Negative Normal Negative [facility] Comment on above: Order Comment: FT4 T SH-RANNEYDUPLICATE W/DIXON-OTHER TESTS-EVANSNUNK Performed By: #### L 3100.3425, L501.9520, L3410.2400, L2100.0000, L506.0400, L501.6710, L5500.0550, L504.2610, L500.4050, L501.89839, L101.9900, L3100.5440, L3300.1200, L3200.1100 ####[facility] [address] [place], [place], [phone] COMMENT Comment Abnormal . [facility] Comment on above: Order Comment: FT4 T SH-RANNEYDUPLICATE W/DIXON-OTHER TESTS-EVANSNUNK Result Comment: Sugg estive of Crohn's Disease with the very high risk of aggressive disease behavior (development of strictures or fistulae) Performed By: #### L 3100.3425, L501.9520, L3410.2400, L2100.0000, L506.0400, L501.6710, L5500.0550, L504.2610, L500.4050, L501.25277, L101.9900, L3100.5440, L3300.1200, L3200.1100 ####[facility] [address] [place], [place], [phone] Sumit 84 units Abnormal 0-50 [facility] Comment on above: Order Comment: FT4 T SH-RANNEYDUPLICATE W/DIXON-OTHER TESTS-EVANSNUNK Result Comment: Nega tive: <45 Equivocal: 45-50 Positive: >50 Performed By: #### L 3100.3425, L501.9520, L3410.2400, L2100.0000, L506.0400, L501.6710, L5500.0550, L504.2610, L500.4050, L501.05157, L101.9900, L3100.5440, L3300.1200, L3200.1100 ####[facility] [address] [place], [address] Abdomen/Pelvis WITH Contrast on 06-06-2024 Abdomen/Pelvis WITH Contrast [facility] [address] [place] [address] Abdomen/Pelvis WITH Contrast MR#: [id number] Acct: [id number] Name: MICHELLE CARLIN Rep #: [id number] : 1980 F 43 From: Jose E Langston MD PCP: Dr. Mark Shabazz MD Status: REG CLI Study: Abdomen/Pelvis WITH Contrast Date of Exam: Exam# [id number] Ordering Dr: Jayla Dixon ADDENDUM by Dr. Victor Manuel Calixto MD on 06/26/24 at 0902 ADDENDUM :[id number] No significant compression of the duodenum from the SMA and aorta. No findings to suggest SMA syndrome. Electronically Signed: Victor Manuel Calixto MD at 9:02 EST , 06/26/24 0902 Date cc: GRAHAM Dixon; Dr. Mark Shabazz MD * Signed ADDENDUM by Dr. Victor Manuel Calixto MD on 06/26/[address]/Abdomen/Pelvis WITH Contrast IMPRESSION: undefined 06/26/24 0909 Date cc: GRAHAM Dixon; Dr. Mark Shabazz MD * Signed :[id number] EXAM: CT ABDOMEN AND PELVIS WITH INTRAVENOUS CONTRAST CLINICAL INDICATION: sharp constant LLQ abdominal pain TECHNIQUE: Helically acquired images were obtained of the abdomen and pelvis with intravenous contrast. This CT exam was performed using one or more of the following dose reduction techniques: automated exposure control, adjustment of the mA and/or kV according to patient size, and/or use of iterative reconstruction technique. CONTRAST: Oral and amp; IV Readi-CAT and amp; 100mL Isovue-370 RADIATION DOSE: CTDIvol = 13.54 mGy, DLP = 332.66 mGy-cm COMPARISON: CT abdomen and pelvis with contrast 02/09/2019. FINDINGS: LOWER THORAX: Unremarkable. Lung bases are clear. No cardiomegaly. No significant pericardial effusion. ABDOMEN: LIVER: Unremarkable. Homogeneous. No focal mass. GALLBLADDER AND BILE DUCTS: Unremarkable. No calcified gallstones. No gallbladder distention or wall edema. No intra- or extrahepatic biliary ductal dilation. PANCREAS: Unremarkable. No focal cystic or solid mass. SPLEEN: Unremarkable. Normal size without focal cystic or solid mass. ADRENALS: Unremarkable. No nodules. KIDNEYS AND URETERS: Unremarkable. Normal renal size and position. No hydronephrosis. STOMACH AND BOWEL: Contrast distention of the stomach. Contrast in small bowel bowel, right: And hepatic flexure. No bowel obstruction. No focal inflammatory change. PELVIS: APPENDIX: Normal. BLADDER: Unremarkable. 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 ABDOMEN and PELVIS: INTRAPERITONEAL SPACE: Unremarkable. No ascites or other fluid collection. No free air. BONES/JOINTS: Unremarkable. No suspicious lytic or blastic abnormality. SOFT TISSUES: Unremarkable. No discrete abdominal or pelvic wall hernia. VASCULATURE: Unremarkable. Abdominal aorta is non-dilated. LYMPH NODES: Unremarkable. No enlarged lymph nodes. CT/Abdomen/Pelvis WITH Contrast IMPRESSION: 1. No bowel obstruction or acute abnormality in the abdomen and pelvis. 2. Interval hysterectomy and bilateral oophorectomy. 3. No significant interval change when compared to 02/09/2019. Electronically Signed: Jose E Langston MD at 16:05 EDT , CC: GRAHAM Dixon; Dr. Mark Shabazz MD Tabulating Supervisor: Signed Normal [facility] ABD Limited w/ Elastographyo n 06-05-2024 ABD Limited w/ Elastography [facility] Imaging Services [address] [place], [place] [address] ABD Limited w/ Elastography MR#: [id number] Acct: [id number] Name: MICHELLE CARLIN ANN Rep #: [id number] : 1980 F 43 From: Willy Funk MD PCP: Dr. Mark Shabazz MD Status: REG CLI Study: ABD Limited w/ Elastography Date of Exam: 05/23 12/14 Exam# [id number] Ordering Dr: Jayla Dixon ADDENDUM by Dr. Willy Funk MD on 06/13/24 at 0823 ADDENDUM :[id number] Multiple gallstones within gallbladder consistent with cholelithiasis. No biliary ductal dilatation. Electronically Signed: Willy Funk MD at 8:23 EDT , 06/13/24 0823 Date cc: GRAHAM Dixon; Dr. Mark Shabazz MD * Signed ADDENDUM by Dr. Willy Funk MD on 06/13/24 at 0823 US/ABD Limited w/ Elastography IMPRESSION: undefined 06/13/24 0829 Date cc: GRAHAM Dixon; Dr. Mark Shabazz MD * Signed :[id number] STUDY: ABDOMINAL ULTRASOUND - ELASTOGRAPHY REASON FOR VISIT: Female, 43 years old. Abdominal pain TECHNIQUE: Liver stiffness measurements were obtained on a [employer] RS 85 ultrasound machine using a CA 1-7 probe following the SRU guidelines. 3 measurements were obtained using a 2-D-SWE method. TheIQR/M was 12% suggesting a quality data set. TECHNICAL QUALITY: Adequate. COMPARISON: FINDINGS: Liver: There is no demonstrated mass lesion. Median liver stiffness measured 5.1 kPa. Abdomen: Multiple shadowing stones within the gallbladder consistent with cholelithiasis. US/ABD Limited w/ Elastography IMPRESSION: Liver stiffness measures 5.1 kPa compatible with F0-F1 Metavir score. Electronically Signed: Willy Funk MD at 12:53 EDT , CC: GRAHAM Dixon; Dr. Mark Shabazz MD Tabulating Supervisor: Signed Normal [facility] CBC, Employeeon 06-05-2024 Absolute Lymph 1.85 X10 3/uL Normal 0.83-4.51 [facility] Comment on above: Order Comment: CBC-D UP W/EMP LABS-STILL NEED DIFF DONE Performed By: #### L 500.2900, L100.0200 ####[facility] [address] [place], [address] Absolute Neut 2.4 X10 3/uL Normal 2.0-7.7 [facility] Comment on above: Order Comment: CBC-D UP W/EMP LABS-STILL NEED DIFF DONE Performed By: #### L 500.2900, L100.0200 ####[facility] [address] [place], [address] Basophils/100 WBC (Bld) 0.4 % Normal 0-1 [facility] Comment on above: Order Comment: CBC-D UP W/EMP LABS-STILL NEED DIFF DONE Performed By: #### L 500.2900, L100.0200 ####[facility] [address] [place], [address] Eosinophils/100 WBC (Bld) 1.1 % Normal 0-5 [facility] Comment on above: Order Comment: CBC-D UP W/EMP LABS-STILL NEED DIFF DONE Performed By: #### L 500.2900, L100.0200 ####[facility] [address] [place], [address] Erythrocyte distribution width (RBC) [Ratio] 11.9 % Normal 11.6-14.6 [facility] Comment on above: Order Comment: CBC-D UP W/EMP LABS-STILL NEED DIFF DONE Performed By: #### L 500.2900, L100.0200 ####[facility] [address] [place], [address] Hematocrit (Bld) [Volume fraction] 43.8 % Normal 37-47 [facility] Comment on above: Order Comment: CBC-D UP W/EMP LABS-STILL NEED DIFF DONE Performed By: #### L 500.2900, L100.0200 ####[facility] [address] [place], [address] Hemoglobin (Bld) [Mass/Vol] 13.9 g/dL Normal 12.0-15.0 [facility] Comment on above: Order Comment: CBC-D UP W/EMP LABS-STILL NEED DIFF DONE Performed By: #### L 500.2900, L100.0200 ####[facility] [address] [place], [address] Lymphocytes/100 WBC (Bld) 40.2 % Normal 19-41 [facility] Comment on above: Order Comment: CBC-D UP W/EMP LABS-STILL NEED DIFF DONE Performed By: #### L 500.2900, L100.0200 ####[facility] [address] [place], [address] MCH (RBC) [Entitic mass] 28.4 pg Normal 27.0-32.0 [facility] Comment on above: Order Comment: CBC-D UP W/EMP LABS-STILL NEED DIFF DONE Performed By: #### L 500.2900, L100.0200 ####[facility] [address] [place], [address] MCHC (RBC) [Mass/Vol] 31.7 g/dL Low 32-36 [facility] Comment on above: Order Comment: CBC-D UP W/EMP LABS-STILL NEED DIFF DONE Performed By: #### L 500.2900, L100.0200 ####[facility] [address] [place], [address] MCV (RBC) [Entitic vol] 89.4 fL Normal 81-99 [facility] Comment on above: Order Comment: CBC-D UP W/EMP LABS-STILL NEED DIFF DONE Performed By: #### L 500.2900, L100.0200 ####[facility] [address] [place], [address] Monocytes/100 WBC (Bld) 5.7 % Normal 0-10 [facility] Comment on above: Order Comment: CBC-D UP W/EMP LABS-STILL NEED DIFF DONE Performed By: #### L 500.2900, L100.0200 ####[facility] [address] [place], [address] Neutrophils/100 WBC (Bld) 52.4 % Normal 47-70 [facility] Comment on above: Order Comment: CBC-D UP W/EMP LABS-STILL NEED DIFF DONE Performed By: #### L 500.2900, L100.0200 ####[facility] [address] [place], [address] NRBC # 0.00 10 3/uL Normal 0-5 [facility] Comment on above: Order Comment: CBC-D UP W/EMP LABS-STILL NEED DIFF DONE Performed By: #### L 500.2900, L100.0200 ####[facility] [address] [place], [address] Nucleated RBC (Bld) [#/Vol] 0 10*3/uL Normal 0-5 [facility] Comment on above: Order Comment: CBC-D UP W/EMP LABS-STILL NEED DIFF DONE Performed By: #### L 500.2900, L100.0200 ####[facility] [address] [place], [address] Platelet mean volume (Bld) [Entitic vol] 11.2 fL Normal 6.2-12.0 [facility] Comment on above: Order Comment: CBC-D UP W/EMP LABS-STILL NEED DIFF DONE Performed By: #### L 500.2900, L100.0200 ####[facility] [address] [place], [address] Platelets (Bld) [#/Vol] 229 10*3/uL Normal 150-450 [facility] Comment on above: Order Comment: CBC-D UP W/EMP LABS-STILL NEED DIFF DONE Performed By: #### L 500.2900, L100.0200 ####[facility] [address] [place], [address] RBC (Bld) [#/Vol] 4.90 10*6/uL Normal 4.2-5.4 [facility] Comment on above: Order Comment: CBC-D UP W/EMP LABS-STILL NEED DIFF DONE Performed By: #### L 500.2900, L100.0200 ####[facility] [address] [place], [address] RDW SD 38.6 fl Normal 35.1-43.9 [facility] Comment on above: Order Comment: CBC-D UP W/EMP LABS-STILL NEED DIFF DONE Performed By: #### L 500.2900, L100.0200 ####[facility] [address] [place], [address] WBC (Bld) [#/Vol] 4.6 10*3/uL Normal 4.4-11.0 [facility] Comment on above: Order Comment: CBC-D UP W/EMP LABS-STILL NEED DIFF DONE Performed By: #### L 500.2900, L100.0200 ####[facility] [address] [place], [address] CRPon 06-05-2024 C-REACTIVE PROT 3.21 mg/L High 0.0-3.0 [facility] Comment on above: Order Comment: FT4 T SH-RANNEYDUPLICATE W/DIXON-OTHER TESTS-EVANSUNK1 Result Comment: C-Re active Protein (CRP) provides useful information for the diagnosis, therapy and monitoring of inflammatory processes and associated diseases. For the evaluation of Relative Risk for Cardiovascular Disease, a High Sensitivity CRP (HSCRP) should be ordered. Performed By: #### L 3100.3425, L501.9520, L3410.2400, L2100.0000, L506.0400, L501.6710, L5500.0550, L504.2610, L500.4050, L501.63109, L101.9900, L3100.5440, L3300.1200, L3200.1100 ####[facility] [address] [place], [place], [phone] Comprehensive Metabolic Prof ilon 06-05-2024 Albumin [Mass/Vol] 3.9 g/dL Normal 3.2-5.0 [facility] Comment on above: Order Comment: FT4 T SH-RANNEYDUPLICATE W/DIXON-OTHER TESTS-EVANSUNK1 Performed By: #### L 3100.3425, L501.9520, L3410.2400, L2100.0000, L506.0400, L501.6710, L5500.0550, L504.2610, L500.4050, L501.72095, L101.9900, L3100.5440, L3300.1200, L3200.1100 ####[facility] [address] [place], [place], [phone] Albumin/Globulin [Mass ratio] 1.0 {ratio} Normal 0.9-2.4 [facility] Comment on above: Order Comment: FT4 T SH-RANNEYDUPLICATE W/DIXON-OTHER TESTS-EVANSUNK1 Performed By: #### L 3100.3425, L501.9520, L3410.2400, L2100.0000, L506.0400, L501.6710, L5500.0550, L504.2610, L500.4050, L501.21454, L101.9900, L3100.5440, L3300.1200, L3200.1100 ####[facility] [address] [place], [place], [phone] ALK P 71 U/L Normal 45-117 [facility] Comment on above: Order Comment: FT4 T SH-RANNEYDUPLICATE W/DIXON-OTHER TESTS-EVANSUNK1 Performed By: #### L 3100.3425, L501.9520, L3410.2400, L2100.0000, L506.0400, L501.6710, L5500.0550, L504.2610, L500.4050, L501.98949, L101.9900, L3100.5440, L3300.1200, L3200.1100 ####[facility] [address] [place], [place], [phone] ALT [Catalytic activity/Vol] 25 U/L Normal 13-56 [facility] Comment on above: Order Comment: FT4 T SH-HARIKADUPLICATE W/DIXON-OTHER TESTS-EVANSUNK1 Performed By: #### L 3100.3425, L501.9520, L3410.2400, L2100.0000, L506.0400, L501.6710, L5500.0550, L504.2610, L500.4050, L501.52431, L101.9900, L3100.5440, L3300.1200, L3200.1100 ####[facility] [address] [place], [address] AST [Catalytic activity/Vol] 19 U/L Normal 15-37 [facility] Comment on above: Order Comment: FT4 T SH-RANMICHELLEDUPLICATE W/DIXON-OTHER TESTS-EVANSUNK1 Performed By: #### L 3100.3425, L501.9520, L3410.2400, L2100.0000, L506.0400, L501.6710, L5500.0550, L504.2610, L500.4050, L501.43079, L101.9900, L3100.5440, L3300.1200, L3200.1100 ####[facility] [address] [place], [place], [phone] Bilirubin [Mass/Vol] 0.30 mg/dL Normal 0.20-1.00 [facility] Comment on above: Order Comment: FT4 T SH-RANNEYDUPLICATE W/DIXON-OTHER TESTS-EVANSUNK1 Result Comment: For patients on eltrombopag therapy, use of Dimension Hilliard TBIL is not recommended. Performed By: #### L 3100.3425, L501.9520, L3410.2400, L2100.0000, L506.0400, L501.6710, L5500.0550, L504.2610, L500.4050, L501.94006, L101.9900, L3100.5440, L3300.1200, L3200.1100 ####[facility] [address] [place], [place], [phone] BUN/CRE 12.9 RATIO Normal 10-20 [facility] Comment on above: Order Comment: FT4 T SH-RANNEYDUPLICATE W/DIXON-OTHER TESTS-EVANSUNK1 Performed By: #### L 3100.3425, L501.9520, L3410.2400, L2100.0000, L506.0400, L501.6710, L5500.0550, L504.2610, L500.4050, L501.31730, L101.9900, L3100.5440, L3300.1200, L3200.1100 ####[facility] [address] [place], [place], [phone] CA,Total 9.4 mg/dL Normal 8.5-10.1 [facility] Comment on above: Order Comment: FT4 T SH-RANNEYDUPLICATE W/DIXON-OTHER TESTS-EVANSUNK1 Performed By: #### L 3100.3425, L501.9520, L3410.2400, L2100.0000, L506.0400, L501.6710, L5500.0550, L504.2610, L500.4050, L501.67926, L101.9900, L3100.5440, L3300.1200, L3200.1100 ####[facility] [address] [place], [place], [phone] Chloride [Moles/Vol] 103 mmol/L Normal 98-107 [facility] Comment on above: Order Comment: FT4 T SH-RANNEYDUPLICATE W/DIXON-OTHER TESTS-EVANSUNK1 Performed By: #### L 3100.3425, L501.9520, L3410.2400, L2100.0000, L506.0400, L501.6710, L5500.0550, L504.2610, L500.4050, L501.65908, L101.9900, L3100.5440, L3300.1200, L3200.1100 ####[facility] [address] [place], [address] CO2 [Moles/Vol] 29.0 mmol/L Normal 21.0-32.0 [facility] Comment on above: Order Comment: FT4 T SH-RANNEYDUPLICATE W/DIXON-OTHER TESTS-EVANSUNK1 Performed By: #### L 3100.3425, L501.9520, L3410.2400, L2100.0000, L506.0400, L501.6710, L5500.0550, L504.2610, L500.4050, L501.11558, L101.9900, L3100.5440, L3300.1200, L3200.1100 ####[facility] [address] [place], [place], [phone] Creatinine [Mass/Vol] 0.70 mg/dL Normal 0.55-1.02 [facility] Comment on above: Order Comment: FT4 T SH-RANNEYDUPLICATE W/DIXON-OTHER TESTS-EVANSUNK1 Result Comment: The validity of the calculated GFR GFRAA in patients over 70 years has not been determined. Clinical correlation is essential. Performed By: #### L 3100.3425, L501.9520, L3410.2400, L2100.0000, L506.0400, L501.6710, L5500.0550, L504.2610, L500.4050, L501.95829, L101.9900, L3100.5440, L3300.1200, L3200.1100 ####[facility] [address] [place], [place], [phone] EST GFR - AA 118 mL/min Normal >60 [facility] Comment on above: Order Comment: FT4 T SH-RANNEYDUPLICATE W/DIXON-OTHER TESTS-EVANSUNK1 Result Comment: Afri can [place] GFR Calc Performed By: #### L 3100.3425, L501.9520, L3410.2400, L2100.0000, L506.0400, L501.6710, L5500.0550, L504.2610, L500.4050, L501.59631, L101.9900, L3100.5440, L3300.1200, L3200.1100 ####[facility] [address] [place], [place], [phone] GAP 7 Normal 5-15 [facility] Comment on above: Order Comment: FT4 T SH-GAYPLICATE W/DIXON-OTHER TESTS-EVANSUNK1 Performed By: #### L 3100.3425, L501.9520, L3410.2400, L2100.0000, L506.0400, L501.6710, L5500.0550, L504.2610, L500.4050, L501.57135, L101.9900, L3100.5440, L3300.1200, L3200.1100 ####[facility] [address] [place], [place], [phone] GFR/1.73 sq M.predicted among non-blacks MDRD (S/P/Bld) [Vol rate/Area] 98 mL/min/{1.73_m2} Normal >60 [facility] Comment on above: Order Comment: 4 T SH-HARIKADUPLICATE W/DIXON-OTHER TESTS-EVANSUNK1 Result Comment: Non- GFR Calc Performed By: #### L 3100.3425, L501.9520, L3410.2400, L2100.0000, L506.0400, L501.6710, L5500.0550, L504.2610, L500.4050, L501.64635, L101.9900, L3100.5440, L3300.1200, L3200.1100 ####[facility] [address] [place], [place], [phone] Globulin (S) [Mass/Vol] 4.1 g/dL Normal 2.2-4.2 [facility] Comment on above: Order Comment: FT4 T SH-HARIKADUPLICATE W/DIXON-OTHER TESTS-EVANSUNK1 Performed By: #### L 3100.3425, L501.9520, L3410.2400, L2100.0000, L506.0400, L501.6710, L5500.0550, L504.2610, L500.4050, L501.91834, L101.9900, L3100.5440, L3300.1200, L3200.1100 ####[facility] [address] [place], [place], [phone] Glucose [Mass/Vol] 86 mg/dL Normal 74-106 [facility] Comment on above: Order Comment: FT4 T SH-RANMICHELLEDUPLICATE W/DIXON-OTHER TESTS-EVANSUNK1 Performed By: #### L 3100.3425, L501.9520, L3410.2400, L2100.0000, L506.0400, L501.6710, L5500.0550, L504.2610, L500.4050, L501.71468, L101.9900, L3100.5440, L3300.1200, L3200.1100 ####[facility] [address] [place], [place], [phone] Potassium [Moles/Vol] 4.2 mmol/L Normal 3.5-5.1 [facility] Comment on above: Order Comment: FT4 T SH-RANNEYDUPLICATE W/DIXON-OTHER TESTS-EVANSUNK1 Performed By: #### L 3100.3425, L501.9520, L3410.2400, L2100.0000, L506.0400, L501.6710, L5500.0550, L504.2610, L500.4050, L501.42709, L101.9900, L3100.5440, L3300.1200, L3200.1100 ####[facility] [address] [place], [address] Sodium [Moles/Vol] 139 mmol/L Normal 136-145 [facility] Comment on above: Order Comment: FT4 T SH-RANNEYDUPLICATE W/DIXON-OTHER TESTS-EVANSUNK1 Performed By: #### L 3100.3425, L501.9520, L3410.2400, L2100.0000, L506.0400, L501.6710, L5500.0550, L504.2610, L500.4050, L501.00669, L101.9900, L3100.5440, L3300.1200, L3200.1100 ####[facility] [address] [place], [place], [phone] T PROT 8.0 g/dL Normal 6.4-8.2 [facility] Comment on above: Order Comment: FT4 T SH-RANNEYDUPLICATE W/DIXON-OTHER TESTS-EVANSUNK1 Performed By: #### L 3100.3425, L501.9520, L3410.2400, L2100.0000, L506.0400, L501.6710, L5500.0550, L504.2610, L500.4050, L501.39412, L101.9900, L3100.5440, L3300.1200, L3200.1100 ####[facility] [address] [place], [address] Urea nitrogen [Mass/Vol] 9 mg/dL Normal 7-18 [facility] Comment on above: Order Comment: FT4 T SH-RANNEYDUPLICATE W/DIXON-OTHER TESTS-EVANSUNK1 Performed By: #### L 3100.3425, L501.9520, L3410.2400, L2100.0000, L506.0400, L501.6710, L5500.0550, L504.2610, L500.4050, L501.89116, L101.9900, L3100.5440, L3300.1200, L3200.1100 ####[facility] [address] [place], [address] Employee Profileon 4 Albumin [Mass/Vol] 3.8 g/dL Normal 3.2-5.0 [facility] Comment on above: Order Comment: CBC-D UP W/EMP LABS-STILL NEED DIFF DONE Performed By: #### L 500.2900, L100.0200 ####[facility] [address] [place], [address] Albumin/Globulin [Mass ratio] 1.0 {ratio} Normal 0.9-2.4 [facility] Comment on above: Order Comment: CBC-D UP W/EMP LABS-STILL NEED DIFF DONE Performed By: #### L 500.2900, L100.0200 ####[facility] [address] [place], [address] ALK P 70 U/L Normal 45-117 [facility] Comment on above: Order Comment: CBC-D UP W/EMP LABS-STILL NEED DIFF DONE Performed By: #### L 500.2900, L100.0200 ####[facility] [address] [place], [address] ALT [Catalytic activity/Vol] 22 U/L Normal 13-56 [facility] Comment on above: Order Comment: CBC-D UP W/EMP LABS-STILL NEED DIFF DONE Performed By: #### L 500.2900, L100.0200 ####[facility] [address] [place], [address] AST [Catalytic activity/Vol] 15 U/L Normal 15-37 [facility] Comment on above: Order Comment: CBC-D UP W/EMP LABS-STILL NEED DIFF DONE Performed By: #### L 500.2900, L100.0200 ####[facility] [address] [place], [address] Bilirubin [Mass/Vol] 0.30 mg/dL Normal 0.20-1.00 [facility] Comment on above: Order Comment: CBC-D UP W/EMP LABS-STILL NEED DIFF DONE Result Comment: For patients on eltrombopag therapy, use of Dimension Hilliard TBIL is not recommended. Performed By: #### L 500.2900, L100.0200 ####[facility] [address] [place], [address] Bilirubin.direct [Mass/Vol] 0.12 mg/dL Normal 0.00-0.30 [facility] Comment on above: Order Comment: CBC-D UP W/EMP LABS-STILL NEED DIFF DONE Performed By: #### L 500.2900, L100.0200 ####[facility] [address] [place], [address] BUN/CRE 14.6 RATIO Normal 10-20 [facility] Comment on above: Order Comment: CBC-D UP W/EMP LABS-STILL NEED DIFF DONE Performed By: #### L 500.2900, L100.0200 ####[facility] [address] [place], [address] CA,Total 9.4 mg/dL Normal 8.5-10.1 [facility] Comment on above: Order Comment: CBC-D UP W/EMP LABS-STILL NEED DIFF DONE Performed By: #### L 500.2900, L100.0200 ####[facility] [address] [place], [address] Chloride [Moles/Vol] 104 mmol/L Normal 98-107 [facility] Comment on above: Order Comment: CBC-D UP W/EMP LABS-STILL NEED DIFF DONE Performed By: #### L 500.2900, L100.0200 ####[facility] [address] [place], [address] CHOL:HDL 2.[address] [facility] Comment on above: Order Comment: CBC-D UP W/EMP LABS-STILL NEED DIFF DONE Performed By: #### L 500.2900, L100.0200 ####[facility] [address] [place], [address] Cholesterol [Mass/Vol] 186 mg/dL Normal 200 [facility] Comment on above: Order Comment: CBC-D UP W/EMP LABS-STILL NEED DIFF DONE Result Comment: <200 mg/dL Desirable 200-240 mg/dL Borderline >240 mg/dL High Risk Performed By: #### L 500.2900, L100.0200 ####[facility] [address] [place], [address] Cholesterol in HDL [Mass/Vol] 83 mg/dL Normal [facility] Comment on above: Order Comment: CBC-D UP W/EMP LABS-STILL NEED DIFF DONE Result Comment: The drugs N-Acetylcysteine and Metamizole may falsely depress this assay. Reference Range HDL <40 mg/dL Low HDL Cholesterol HDL >or= 60 mg/dL High HDL Cholesterol Performed By: #### L 500.2900, L100.0200 ####[facility] [address] [place], [address] Cholesterol in LDL [Mass/Vol] 84 mg/dL Normal 0-130 [facility] Comment on above: Order Comment: CBC-D UP W/EMP LABS-STILL NEED DIFF DONE Performed By: #### L 500.2900, L100.0200 ####[facility] [address] [place], [address] Cholesterol in VLDL [Mass/Vol] 19 mg/dL Normal 5-40 [facility] Comment on above: Order Comment: CBC-D UP W/EMP LABS-STILL NEED DIFF DONE Performed By: #### L 500.2900, L100.0200 ####[facility] [address] [place], [address] CO2 [Moles/Vol] 28.0 mmol/L Normal 21.0-32.0 [facility] Comment on above: Order Comment: CBC-D UP W/EMP LABS-STILL NEED DIFF DONE Performed By: #### L 500.2900, L100.0200 ####[facility] [address] [place], [address] Creatinine [Mass/Vol] 0.68 mg/dL Normal 0.55-1.02 [facility] Comment on above: Order Comment: CBC-D UP W/EMP LABS-STILL NEED DIFF DONE Result Comment: The validity of the calculated GFR GFRAA in patients over 70 years has not been determined. Clinical correlation is essential. Performed By: #### L 500.2900, L100.0200 ####[facility] [address] [place], [address] EST GFR - AA 121 mL/min Normal >60 [facility] Comment on above: Order Comment: CBC-D UP W/EMP LABS-STILL NEED DIFF DONE Result Comment: Afri can [place] GFR Calc Performed By: #### L 500.2900, L100.0200 ####[facility] [address] [place], [address] GAP 6 Normal 5-15 [facility] Comment on above: Order Comment: CBC-D UP W/EMP LABS-STILL NEED DIFF DONE Performed By: #### L 500.2900, L100.0200 ####[facility] [address] [place], [address] GFR/1.73 sq M.predicted among non-blacks MDRD (S/P/Bld) [Vol rate/Area] 100 mL/min/{1.73_m2} Normal >60 [facility] Comment on above: Order Comment: CBC-D UP W/EMP LABS-STILL NEED DIFF DONE Result Comment: Non- GFR Calc Performed By: #### L 500.2900, L100.0200 ####[facility] [address] [place], [address] Globulin (S) [Mass/Vol] 3.9 g/dL Normal 2.2-4.2 [facility] Comment on above: Order Comment: CBC-D UP W/EMP LABS-STILL NEED DIFF DONE Performed By: #### L 500.2900, L100.0200 ####[facility] [address] [place], [address] Glucose [Mass/Vol] 87 mg/dL Normal 74-106 [facility] Comment on above: Order Comment: CBC-D UP W/EMP LABS-STILL NEED DIFF DONE Performed By: #### L 500.2900, L100.0200 ####[facility] [address] [place], [address] LDH 182 U/L Normal 84-246 [facility] Comment on above: Order Comment: CBC-D UP W/EMP LABS-STILL NEED DIFF DONE Performed By: #### L 500.2900, L100.0200 ####[facility] [id number] [place], [address] Phosphate [Mass/Vol] 2.9 mg/dL Normal 2.5-4.9 [facility] Comment on above: Order Comment: CBC-D UP W/EMP LABS-STILL NEED DIFF DONE Performed By: #### L 500.2900, L100.0200 ####[facility] [id number] [place], [address] Potassium [Moles/Vol] 4.2 mmol/L Normal 3.5-5.1 [facility] Comment on above: Order Comment: CBC-D UP W/EMP LABS-STILL NEED DIFF DONE Performed By: #### L 500.2900, L100.0200 ####[facility] [id number] [place], [address] Sodium [Moles/Vol] 138 mmol/L Normal 136-145 [facility] Comment on above: Order Comment: CBC-D UP W/EMP LABS-STILL NEED DIFF DONE Performed By: #### L 500.2900, L100.0200 ####[facility] [id number] [place], [address] T PROT 7.7 g/dL Normal 6.4-8.2 [facility] Comment on above: Order Comment: CBC-D UP W/EMP LABS-STILL NEED DIFF DONE Performed By: #### L 500.2900, L100.0200 ####[facility] [id number] [place], [address] Triglyceride [Mass/Vol] 93 mg/dL Normal [facility] Comment on above: Order Comment: CBC-D UP W/EMP LABS-STILL NEED DIFF DONE Result Comment: The drugs N-Acetylcysteine and Metamizole may falsely depress this assay. Serum Triglycerides Reference Interval Normal <150 mg/dL Borderline high 150 - 199 mg/dL High 200 - 499 mg/dL Very High > or = 500 mg/dL Performed By: #### L 500.2900, L100.0200 ####[facility] [id number] [place], [address] Urea nitrogen [Mass/Vol] 10 mg/dL Normal 7-18 [facility] Comment on above: Order Comment: CBC-D UP W/EMP LABS-STILL NEED DIFF DONE Performed By: #### L 500.2900, L100.0200 ####[facility] [address] [place], [address] URIC 3.0 mg/dL Normal 2.6-6.0 [facility] Comment on above: Order Comment: CBC-D UP W/EMP LABS-STILL NEED DIFF DONE Result Comment: The drugs N-Acetylcysteine and Metamizole may falsely depress this assay. Performed By: #### L 500.2900, L100.0200 ####[facility] [id number] [place], [address] Erythrocyte Sed Rateon 06-05 SED RATE 2 mm/hr Normal 0-30 [facility] Comment on above: Order Comment: FT4 T SARA-HARIKA DUPLICATE W/DIXON-OTHER TESTS-DIXON Performed By: #### L 3100.3425, L501.9520, L3410.2400, L2100.0000, L506.0400, L501.6710, L5500.0550, L504.2610, L500.4050, L501.20708, L101.9900, L3100.5440, L3300.1200, L3200.1100 #### [facility] [address] [place], [address] Free T3on 06-05-2024 Free T3 [Mass/Vol] 2.5 pg/mL Normal 2.18-3.98 [facility] Comment on above: Order Comment: FT4 T SH-RANNEYDUPLICATE W/DIXON-OTHER TESTS-EVANSUNK1 Performed By: #### L 3100.3425, L501.9520, L3410.2400, L2100.0000, L506.0400, L501.6710, L5500.0550, L504.2610, L500.4050, L501.83046, L101.9900, L3100.5440, L3300.1200, L3200.1100 ####[facility] [address] [place], [address] LDHon 06-05-2024 LDH 186 U/L Normal 84-246 [facility] Comment on above: Order Comment: FT4 T SH-RANNEYDUPLICATE W/DIXON-OTHER TESTS-EVANSUNK1 Performed By: #### L 3100.3425, L501.9520, L3410.2400, L2100.0000, L506.0400, L501.6710, L5500.0550, L504.2610, L500.4050, L501.72897, L101.9900, L3100.5440, L3300.1200, L3200.1100 ####[facility] [address] [place], [address] Progress Noteon 06-05-2024 Progress Note Administrations This Visit onabotulinumtoxin A (BOTOX) injection 200 Units Admin Date 06/05/24 Action Given Dose 200 Units Route IntraMUSCular Site Other Administered By CLEVELAND Lara CNP Ordering Provider: CLEVELAND Lara CNP ND: [id number] Lot#: [id number] Administrative Job Titles: [employer] Patient Supplied?: SAMPLE Normal [facility] T4 Free Directon 06-05-2024 T4 FREE DIRECT 0.89 ng/dL Normal 0.76-1.46 [facility] Comment on above: Order Comment: FT4 T SH-RANNEYDUPLICATE W/DIXON-OTHER TESTS-EVANSUNK1 Performed By: #### L 3100.3425, L501.9520, L3410.2400, L2100.0000, L506.0400, L501.6710, L5500.0550, L504.2610, L500.4050, L501.38029, L101.9900, L3100.5440, L3300.1200, L3200.1100 ####[facility] [address] [place], [place], [address] Thyroid Stim Hormone (TSH)on 06-05-2024 TSH 1.240 uIU/mL Normal 0.358-3.740 [facility] Comment on above: Order Comment: FT4 T SH-RANNEYDUPLICATE W/DIXON-OTHER TESTS-[facility] Performed By: #### L 3100.3425, L501.9520, L3410.2400, L2100.0000, L506.0400, L501.6710, L5500.0550, L504.2610, L500.4050, L501.83987, L101.9900, L3100.5440, L3300.1200, L3200.1100 ####[facility] [address] [place], [place], [address] 36on 05-23-2024 36 Nupur lin for filled out, scanned and faxed. Will await insurance decision. Normal [facility] Gastroenterology Visit Repor ton 05-16-2024 Gastroenterology Visit Report [facility] [address] [place] [address] OFFICE VISIT Date of Service: 05/16/24 MR#: [id number] Acct: [id number] Name: MICHELLE CARLIN ANN Rep #: [id number] : 1980 Provider: GRAHAM mckenzie Age/Sex: 43/F [facility] [facility] Status: Signed Intake Vital Signs 06/06/20 14:05 Height 5 ft 4 in Intake Visit Reasons: Irritable bowel syndrome Chief Complaint: excision right breast nodule f/u Allergies suture Allergy (Mild, Verified 06/27/20 09:58) pus tramadol (From Ultram) Adverse Reaction (Intermediate, Verified 06/27/20 09:58) hallucinations hydrocodone bitartrate (From Vicodin) Adverse Reaction (Verified 06/27/20 09:58) Vomiting Medications ???Medication ???Instructions ???Recorded ???Confirmed ???Type multivitamin 1 cap PO DAILY 04/22/18 05/16/24 History ilacwpmjwk-idxeblyzgoztz-fln feine 1 tab PO Q4H PRN PRN Headache #20 04/27/18 05/16/24 Rx 50 mg-325 mg-40 mg tablet tabs estradiol 2 mg tablet 2 mg PO DAILY #100 tabs 03/27/19 05/16/24 Rx alprazolam 0.25 mg tablet (Xanax) 0.5 mg PO BID-TID PRN Anxiety 06/06/20 05/16/24 History galcanezumab-gnlm 120 mg/mL 120 mg subcut QMONTH 06/06/20 06/27/20 History subcutaneous syringe (Emgality) ibuprofen 200 mg capsule 200 mg PO DAILY PRN 06/06/20 06/27/20 History Saccharomyces boulardii 250 mg 250 mg PO BID 05/16/24 05/16/24 History capsule (Daily Probiotic (S. boulardii)) cholecalciferol (vitamin D3) 50 50 mcg PO QDAY 05/16/24 05/16/24 History mcg (2,000 unit) capsule estradiol 2 mg tablet 2 mg PO QDAY 05/16/24 05/16/24 History levothyroxine 50 mcg tablet 50 mcg PO QDAY 05/16/24 05/16/24 History lisdexamfetamine 30 mg capsule 30 mg PO QAM 05/16/24 05/16/24 History (Vyvanse) tizanidine 4 mg capsule 4 mg PO TID PRN 05/16/24 05/16/24 History Nurse's Note: OV 05.16.24 Pt here for LLQ pain since . Pt reports having irregular BMs diarrhea, with some formed stools. Pt reports seeing mucus, oily stools. Pt denies blood in stools Pt has lost 20lbs in 6 months. Pt takes magnesium, probiotics, and multivitamin daily. [facility] Medical History (Updated 05/16/24 @ 12:29 by KEM HungC) Anxiety and depression History of TIA (transient ischemic attack) History of cervical dysplasia Peritonitis Back pain Thyroid disease Chest pain Migraines Hay fever Fatigue Surgical History History of hysterectomy History of appendectomy History of colonoscopy ( 2008) History of dilation and curettage ( 2014) History of bilateral breast reduction surgery ( 2018) History of loop electrical excision procedure (LEEP) ( 2013) History of ovarian cystectomy H/O oophorectomy Family History Daughter Asthma Father Hypertension Mother Hypertension Thyroid disorder Diabetes Grandmother Breast cancer Cancer omentum Osteoporosis Aunt Breast cancer Aunt Breast cancer Social History (Updated 06/27/20 @ 11:18 by SOFIA Oglesby-C) Smoking Status: Never smoker HPI HPI Chief Complaint: excision right breast nodule f/u Details: MICHELLE CARLIN, is a 43 F who presents to the office today for establishment with [facility] for complaints of sharp constant LLQ abdominal pain. 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. She reports pain has been present for almost 1 year and is concerned that endometriosis may have attached to her intestines. She reports extensive history of dealing with endometriosis: left ovary removed in 2008 and total hysterectomy performed in 2019. She was placed on estradiol as HRT so endometriosis is still a possibility. She states that she tried to go without estrogen replacement after 3 months, which caused her to have hot flashes and suicidal ideations so she went back on HRT. She reports painful urgency with diarrhea, pain is gone following BM. She reports occasional difficulty with swallowing, but relates that to anxiety. She denies difficulty chewing, reflux, heartburn, vomiting and constipation. She reports that she has nausea, poor appetite and early satiety. She does relate the nausea as a migraine aura. She reports that with some fatty food and all types of alcohol or fermented beverages, she gets a sharp gnawing pain to her abdominal RUQ that will last minutes to hours. She does report occasional abdominal RLQ pain briefly associated with intercourse. She states that she still has her gallbladder but has had her appendix removed. September 2023 she had a rectal exam under anesthesia for removal of 2 anal fibroepithelial polyps, one with chronic inflammation. ROS Const Constitutional: Positive for anorexia, fatigue, headache(s) and weight change; No fever(s) Eyes Eyes: No change in vision ENT (more content not included)... [facility] 3605-12-2024 36 Requested Prescripti ons Signed Prescriptions Disp Refills fremanezumab (Ajovy) 225 MG/1.5ML auto-injector 1.5 mL 2 Sig: Inject 1 Pen (225 mg) under the skin every 30 (thirty) days. Authorizing Provider: MARIANA ACUÑA [place] [address] Pt reached out to SP about Rx. Pended Rx. [address] 05-01-2024 36 Insurance needs a PA on Ajovy. [address] 04-28-2024 36 Lmovm please release message to patient as written [place] [address] Please advise the pa tient she must try and fail Ajovy before approving Emgality. The prescription was sent to the pharmacy to garbage pick up man. [address] 04-27-2024 36 Patient has new pres cription insurance and [facility] submitted the RX Prescription PA for Botox and PA was Denied. Per new insurance, the requested medication can only be approved if the patient has trial and failure of one of the following; aimovig or ajovy Botox RX Prescription PA Denied, until pt tries and fails Aimovig OR Ajovy [address] 04-13-2024 36 Noted thanks [place] [address] It will likely be Me dical, but since its not active until 04/23/24, I cannot get the prescription insurance info yet, so I cannot say for sure. On 04/25/24 (due to being closed for holiday) [facility] can look into pharmacy benefit with new insurance. [place] [address] Name of Caller: Jodi sethi Contact Reason for Appointment: Pt called in to update her insurance and r/s her 05/17 appt. Pt states she could make it in anytime on either 05/16 or 05/26 but would like 05/16 if possible to stay around her 12 week constantine. Pt states if these days are available she can be scheduled and a vm can be left with the details. Pt new insurance is not valid until 04/23 ans Pt states she is not sure if a new PA will be needed or not. Please advise Office Name: [facility] Progress Noteon 02-16-2024 Progress Note Administrations This Visit onabotulinumtoxin A (BOTOX) injection 200 Units Admin Date 02/16/24 Action Given Dose 200 Units Route IntraMUSCular Site Other Administered By CLEVELAND Lara CNP Ordering Provider: CLEVELAND Lara CNP [facility]: [id number] Lot#: [id number] Administrative Job Titles: [employer] Patient Supplied?: No [facility] 36on 02-04-2024 36 Message left with marky singh to fill Rx today. [facility] 36 Please advise the francisco the prescription for fioricet can be filled today. [facility] 36 Name of caller: Alec barrera Contact phone number: [phone] Relationship to Patient: Pharmacy Provider: Jose Acuña Practice: Neuro Chief Complaint/Reason for Call: qlszpkzpbx-ufaionasdycfg-uai feine 50-325-40 MG tablet [[id number]] Order Details Dose: 1 tablet Route: Oral Frequency: Every 6 hours PRN for headaches Dispense Quantity: 130 tablet Refills: 2 Sig: Take 1 tablet by mouth every 6 hours as needed for headaches. TAKE 1 TABLET BY MOUTH EVERY 6 HOURS IF NEEDED FOR HEADACHE Previous script written 01/03 was for same directions but stated 90 day supply. New script has same directions but does not state 90 day supply. Is the pharmacy to wait for 90 days as it won't fill until end january or can RX be filled today. Best time of day caller can be reached: any Patient advised that office/PCP has 24-48 business hours to return their call: No [facility] Final Surgical Pathology Rep [facility] 10-14-2023 Final Surgical Pathology Report . Pathology Reports Accession: Collected Date/Time: Received Date/Time: Pathologist: [id number] 10/13/2023 12:05 EST 10/13/2023 14:06 EST KATHERINE LINTON MD Final Surgical Pathology Report DIAGNOSIS: A. LEFT LATERAL ANAL SKIN TAG: - FIBROEPITHELIAL POLYP, WITH CHRONIC INFLAMMATION B. ANTERIOR ANAL SKIN TAG: - FIBROEPITHELIAL POLYP CLINICAL INFORMATION: ANAL SKIN TAG Procedure: RECTAL EXAM UNDER ANESTHESIA, EXCISION OF ANAL SKIN TAG Preoperative diagnosis: ANAL SKIN TAG Postoperative diagnosis: ANAL SKIN TAG SPECIMEN: A LEFT LATERAL ANAL SKIN TAG B ANTERIOR ANAL SKIN TAG GROSS DESCRIPTION: All parts labelled with patient name and [id number] A. Received in formalin labelled left lateral anal skin tag Is a murphy-pink wrinkled skin excision measuring 1 x 0.4 x 0.3 cm. Excision margin inked black. TS-1 B. Received in formalin labelled anterior anal skin tag Is a murphy pickering wrinkled skin excision measuring 1.5 x 0.7 x 0.6 cm. Excision margin inked black TS-1 SOFIA Staples Dictated by RICKIE SALAZAR MICROSCOPIC DESCRIPTION: The microscopic examination is performed, except in the case of Gross Only. Electronically Signed by Pathology Report verified by [facility] KATHERINE LINTON Sign out Date: 10/14/2023 11:52 Performing Lab: [facility], [address] [place] [address] Pathology Dept Disclaimer If ancillary studies were utilized, the following Laboratory Developed Test (LDT) disclaimer will apply: Under CLIA requirements, [facility] is qualified to perform high complexity testing. For all ancillary stains, positive and negative controls stain appropriately. Performance characteristics of immunohistochemical and chromogenic in-situ hybridization tests have been determined by [facility]. These tests are used for clinical purposes, They should not be regarded as investigational or for research. Normal [facility] ([place]) MA MAMMOGRAM DIAGNOSTIC BILA TERAL W/TOMOon 09-27-2023 MA MAMMOGRAM DIAGNOSTIC BILATERAL W/PALOMO ORIGINAL FROM: [address] [address] PROCEDURE FOR: MICHELLE CARLIN [address] [place] [address] Home: PID#: [id number] Exam#: [id number] : 1980 Age: 43 TO: ELIAN NESBITT MD [address] [address] Fax: NO FAX EXAMINATION: DIAGNOSTIC BILATERAL MAMMOGRAM WITH TOMOSYNTHESIS, 09/23/2023 8:53 am TECHNIQUE: Tomosynthesis was performed as part of the diagnostic bilateral mammogram. 2D standard and 3D tomosynthesis combination imaging performed. Current study was also evaluated with a Computer Aided Detection (CAD) system. COMPARISON: August 11, 2022, July 29, 2021, May 02, 2020 HISTORY: History of breast cancer FINDINGS: BREAST DENSITY: Heterogeneously dense There are postoperative changes in the right breast. There are no significant masses or calcifications. IMPRESSION: No mammographic evidence of malignancy. A 12 month follow-up mammogram is recommended. BIRADS: MAMMOGRAM BI-RADS: 2: Benign finding RECALL: 12 month follow-up RECALL TYPE: mammo LETTER SENT: Normal BI-RADS 1 and 2 Interpreted by: Cynthia Villasenor Preliminary Report By: Cynthia Villasenor Electronically signed By Cynthia Villasenor Dictated Date: 09/27/2023 1:57:09 PM Prelim Date: 09/27/2023 1:58:49 PM Sign Date: 09/27/2023 1:58:49 PM Ordering Provider: ELIAN NESBITT CLINICAL: POST LUMPECTOMY RIGHT BREAST. Bartacker: TIA MYERS RT(R)(M)(CT) letter sent: Normal BI-RADS 1 and 2 Mammogram BI-RADS: 2 Benign Normal [facility] ([place] CALPROon 08-19-2023 Calprotectin, Fecal Quantitative 69.0 ug/g High <50 [facility] [place] Comment on above: Result Comment: Perf ormed By: [facility] [employer] [address] [place] [address] [employer] Setter: Les Day III#: [id number] Performed By: #### Dylan CHOPRA ####[address] [place] [address] LABORATORYOrdered By: EDSON HAZEL CONTRIBUTOR_SYSTEM on 08-17-2023 Calprotectin, Fecal Quantitative 69.0 1 High <50 AO [employer] SS Comment on above: Result Comment: Perf ormed By: [facility] [address] [place] [address] [employer] Setter: Les Day III#: [id number] .Auto Diffon 08-12-2023 Basophil, Absolute 0.0 10 3/mcL Normal 0.0-0.2 [facility] ([place]) Comment on above: Performed By: #### A DIFF, CRP, CBC, CMP, GFR, ANEU #### [address] [address] Basophils/100 WBC (Bld) 0.2 % Normal 0.0-2.5 [facility] ([place] Comment on above: Performed By: #### A DIFF, CRP, CBC, CMP, GFR, ANEU #### [address] [address] Eosinophil, Absolute 0.1 10 3/mcL Normal 0.0-0.4 [facility] ([place] Comment on above: Performed By: #### A DIFF, CRP, CBC, CMP, GFR, ANEU #### [address] [address] Eosinophils/100 WBC (Bld) 0.9 % Normal 0.0-7.0 [facility] ([place] Comment on above: Performed By: #### A DIFF, CRP, CBC, CMP, GFR, ANEU #### [address] [address] Lymphocyte, Absolute 2.9 10 3/mcL Normal 0.8-3.9 [facility] ([place] Comment on above: Performed By: #### A DIFF, CRP, CBC, CMP, GFR, ANEU #### [address] [address] Lymphocytes/100 WBC (Bld) 41.8 % Normal 10.0-50.0 [facility] ([place] Comment on above: Performed By: #### A DIFF, CRP, CBC, CMP, GFR, ANEU #### [address] [place] [address] Monocyte, Absolute 0.4 10 3/mcL Normal 0.2-1.0 [facility] ([place]) Comment on above: Performed By: #### A DIFF, CRP, CBC, CMP, GFR, ANEU #### [address] [address] Monocytes/100 WBC (Bld) 6.3 % Normal 1.7-13.0 [facility] ([place] Comment on above: Performed By: #### A DIFF, CRP, CBC, CMP, GFR, ANEU #### [address] [address] Neutrophils/100 WBC (Bld) 50.8 % Normal 37.0-80.0 [facility] ([place] Comment on above: Performed By: #### A DIFF, CRP, CBC, CMP, GFR, ANEU #### [address] [address] .GFRon 08-12-2023 GFR 110 ml/min/1.73sqm Normal [facility] ([place] Comment on above: Result Comment: GFR Population mean for , Non- Americans Ages 20-29 = 116 mL/min/1.73 sq.m. Ages 30-39 = 107 mL/min/1.73 sq.m. Ages 40-49 = 99 mL/min/1.73 sq.m. Ages 50-59 = 93 mL/min/1.73 sq.m. Ages 60-69 = 85 mL/min/1.73 sq.m. Ages 70+ = 75 mL/min/1.73 sq.m. Chronic Kidney Disease: Less than 60 mL/min/1.73 square meters End Stage Renal Disease: Less than 15 mL/min/1.73 square meters Performed By: #### A DIFF, CRP, CBC, CMP, GFR, ANEU #### [address] [address] GFR Non- 91 ml/min/1.73sqm Normal [facility] ([place] Comment on above: Result Comment: GFR Population mean for , Non- Americans Ages 20-29 = 116 mL/min/1.73 sq.m. Ages 30-39 = 107 mL/min/1.73 sq.m. Ages 40-49 = 99 mL/min/1.73 sq.m. Ages 50-59 = 93 mL/min/1.73 sq.m. Ages 60-69 = 85 mL/min/1.73 sq.m. Ages 70+ = 75 mL/min/1.73 sq.m. Chronic Kidney Disease: Less than 60 mL/min/1.73 square meters End Stage Renal Disease: Less than 15 mL/min/1.73 square meters Performed By: #### A DIFF, CRP, CBC, CMP, GFR, ANEU #### [address] [address] .NEUABSon 08-12-2023 Neutrophil, Absolute 3.6 10 3/mcL Normal 2.9-6.2 [facility] ([place] Comment on above: Performed By: #### A DIFF, CRP, CBC, CMP, GFR, ANEU #### [address] [address] CBCon 08-12-2023 Erythrocyte distribution width (RBC) [Ratio] 13.3 % Normal 11.5-14.5 [facility] [place] Comment on above: Performed By: #### A DIFF, CRP, CBC, CMP, GFR, ANEU #### [address] [address] Hematocrit (Bld) [Volume fraction] 40.7 % Normal 37.0-47.0 [facility] ([place] Comment on above: Performed By: #### A DIFF, CRP, CBC, CMP, GFR, ANEU #### [address] [address] Hgb 13.6 G/dL Normal 12.0-16.0 [facility] ([place] Comment on above: Performed By: #### A DIFF, CRP, CBC, CMP, GFR, ANEU #### [address] [address] MCH (RBC) [Entitic mass] 28.7 pg Normal 27.0-31.2 [facility] [place] Comment on above: Performed By: #### A DIFF, CRP, CBC, CMP, GFR, ANEU #### [address] [address] MCHC 33.3 G/dL Normal 33.0-37.0 [facility] ([place] Comment on above: Performed By: #### A DIFF, CRP, CBC, CMP, GFR, ANEU #### [address] [address] MCV (RBC) [Entitic vol] 86.1 fL Normal 80.0-94.0 [facility] ([place] Comment on above: Performed By: #### A DIFF, CRP, CBC, CMP, GFR, ANEU #### [address] [address] Platelet 460 10 3/mcL High 130-400 [facility] ([place] Comment on above: Performed By: #### A DIFF, CRP, CBC, CMP, GFR, ANEU #### [address] [address] Platelet mean volume (Bld) [Entitic vol] 7.9 fL Normal 7.4-10.4 [facility] ([place] Comment on above: Performed By: #### A DIFF, CRP, CBC, CMP, GFR, ANEU #### [address] [address] RBC 4.73 10 6/mcL Normal 4.20-5.40 [facility] ([place] Comment on above: Performed By: #### A DIFF, CRP, CBC, CMP, GFR, ANEU #### [address] [address] WBC 7.0 10 3/mcL Normal 4.6-10.8 [facility] ([place] Comment on above: Performed By: #### A DIFF, CRP, CBC, CMP, GFR, ANEU #### [address] [address] CMPon 08-12-2023 Albumin Level 3.7 G/dL Normal 3.5-5.0 [facility] ([place] Comment on above: Performed By: #### A DIFF, CRP, CBC, CMP, GFR, ANEU #### [address] [address] Albumin/Globulin [Mass ratio] 1.0 {ratio} Low 1.1-2.5 [facility] ([place] Comment on above: Performed By: #### A DIFF, CRP, CBC, CMP, GFR, ANEU #### [address] [address] ALP [Catalytic activity/Vol] 76 U/L Normal 40-135 [facility] ([place] Comment on above: Performed By: #### A DIFF, CRP, CBC, CMP, GFR, ANEU #### [address] [address] ALT [Catalytic activity/Vol] 22 U/L Normal 14-59 [facility] ([place] Comment on above: Performed By: #### A DIFF, CRP, CBC, CMP, GFR, ANEU #### [address] [address] AST [Catalytic activity/Vol] 16 U/L Normal 10-40 [facility] ([place] Comment on above: Performed By: #### A DIFF, CRP, CBC, CMP, GFR, ANEU #### [address] [address] Bili Total 0.3 mg/dL Normal 0.2-1.0 [facility] ([place] Comment on above: Result Comment: Use of this assay is not recommended for patients undergoing treatment with eltrombopag due to the potential for falsely elevated results. Performed By: #### A DIFF, CRP, CBC, CMP, GFR, ANEU #### [address] [address] BUN/Creatinine Ratio 7 ratio Normal 7-27 [facility] ([place] Comment on above: Performed By: #### A DIFF, CRP, CBC, CMP, GFR, ANEU #### [address] [address] Calcium [Mass/Vol] 9.6 mg/dL Normal 8.4-10.2 [facility] ([place]) Comment on above: Performed By: #### A DIFF, CRP, CBC, CMP, GFR, ANEU #### [place] [address] Chloride [Moles/Vol] 103 mmol/L Normal 98-107 [facility] ([place] Comment on above: Performed By: #### A DIFF, CRP, CBC, CMP, GFR, ANEU #### [place] [address] CO2 [Moles/Vol] 30 mmol/L High 22-29 [facility] ([place] Comment on above: Performed By: #### A DIFF, CRP, CBC, CMP, GFR, ANEU #### [place] [address] Creatinine [Mass/Vol] 0.71 mg/dL Normal 0.55-1.02 [facility] ([place]) Comment on above: Performed By: #### A DIFF, CRP, CBC, CMP, GFR, ANEU #### [place] [address] Electrolyte Balance 10.0 mEq/L Normal 4.0-15.0 [facility] ([place]) Comment on above: Performed By: #### A DIFF, CRP, CBC, CMP, GFR, ANEU #### [place] [address] Globulin 3.6 G/dL Normal [facility] ([place] Comment on above: Performed By: #### A DIFF, CRP, CBC, CMP, GFR, ANEU #### [place] [address] Glucose [Mass/Vol] 107 mg/dL High 70-105 [facility] ([place]) Comment on above: Performed By: #### A DIFF, CRP, CBC, CMP, GFR, ANEU #### [place] [address] Potassium [Moles/Vol] 4.2 mmol/L Normal 3.5-5.1 [facility] ([place]) Comment on above: Performed By: #### A DIFF, CRP, CBC, CMP, GFR, ANEU #### [address] [address] Sodium [Moles/Vol] 143 mmol/L Normal 136-145 [facility] ([place]) Comment on above: Performed By: #### A DIFF, CRP, CBC, CMP, GFR, ANEU #### [place] [address] [place], [place] [address] Total Protein 7.3 G/dL Normal 6.4-8.2 [facility] ([place] Comment on above: Performed By: #### A DIFF, CRP, CBC, CMP, GFR, ANEU #### [address] [address] Urea nitrogen [Mass/Vol] 5 mg/dL Low 7-18 [facility] ([place] Comment on above: Performed By: #### A DIFF, CRP, CBC, CMP, GFR, ANEU #### [address] [address] CRPon 08-12-2023 C-Reactive Protein 0.3 mg/dL Normal 0.0-0.3 [facility] ([place]) Comment on above: Performed By: #### A DIFF, CRP, CBC, CMP, GFR, ANEU #### [address] [address] [address] ABDOMEN/PELVIS W/CONTRAST on 08-06-2023 CT ABDOMEN/PELVIS W/CONTRAST ORIGINAL EXAMINATION: CT OF THE ABDOMEN AND PELVIS WITH IWKBDOTI57/14/2023 3:12 pm TECHNIQUE: CT of the abdomen and pelvis was performed with the administration of intravenous contrast. Multiplanar reformatted images are provided for review. Automated exposure control, iterative reconstruction, and/or weight based adjustment of the mA/kV was utilized to reduce the radiation dose to as low as reasonably achievable. COMPARISON: None available HISTORY: ORDERING SYSTEM PROVIDED HISTORY: Reason for Exam: LLQ pain for 2 months. Frequent nausea was unintentional 40 pound weight loss over 10 months. History of 2009 left ovarian resection and hysterectomy with appendectomy in 2019. FINDINGS: Small to moderate pericardial effusion. No acute or suspicious bony abnormality. Very slight levocurvature of the spine. The visualized esophagus, stomach, and duodenum are unremarkable. The liver is unremarkable in size, contour, and attenuation. Small left lateral hepatic cyst there is no intra or extrahepatic biliary duct dilation. No focal mass identified. The gallbladder, pancreas, spleen, and adrenal glands are unremarkable. The kidneys enhance symmetrically without evidence of hydronephrosis or mass. The ureters are normal course and caliber. There is no evidence of urolithiasis. The urinary bladder is well-distended without wall thickening or focal mass. The uterus is surgically absent. Hyperenhancing densities at the vaginal orifice. The visualized aorta is nonaneurysmal. No acute or suspicious soft tissue abnormality. Small fat containing umbilical hernia. Hyperenhancing, thick-walled colon from rectum to distal transverse colon with adjacent minor infiltrative change and loss of haustration. There is no free intraperitoneal air or fluid. IMPRESSION: Thick-walled colon with adjacent infiltrative change and loss of haustration from rectum to distal transverse colon. Strong suspicion for ulcerative colitis. Small to moderate pericardial effusion, follow up appropriately. Hyperenhancing densities at the vaginal orifice, possibly hemorrhagic cysts, correlate with physical exam. I have personally reviewed the images of this examination and agree with the resident's findings and interpretation. Interpreted by: Brando Davis MD Preliminary Report By: Rafi Kelley Electronically signed By Brando Davis MD Dictated Date: 08/05/2023 3:21:58 PM Prelim Date: 08/06/2023 8:02:56 AM Sign Date: 08/06/2023 8:02:56 AM Ordering Provider: TRUDI Vences [facility]) FT3on 08-05-2023 Free T3 [Mass/Vol] 3.18 pg/mL Normal 2.30-4.00 [facility]) Comment on above: Performed By: #### F T3, TSH, FT4 ####[address] [place], [place] [address] FT4on 08-05-2023 Free T4 [Mass/Vol] 1.01 ng/dL Normal 0.76-1.46 [facility]) Comment on above: Performed By: #### F T3, TSH, FT4 ####[address] [place], [place] [address] LABORATORYOrdered By: SYSTEM SYSTEM on 08-05-2023 Free T3 [Mass/Vol] 3.18 pg/mL Normal 2.30 - 4. 00 pg/mL AO ADM SS Free T4 [Mass/Vol] 1.01 ng/dL Normal 0.76 - 1. 46 ng/dL AO ADM SS TSH Qn 1.94 m[IU]/L Normal 0.36 - 3.74 mcIU/mL AO ADM SS TSHon 08-05-2023 TSH Qn 1.94 m[IU]/L Normal 0.36-3.74 [facility] ([place]) Comment on above: Performed By: #### F T3, TSH, FT4 ####[address] [place], [place] [address] MRI BRAIN W/O CONTRASTon MRI BRAIN W/O CONTRAST ORIGINAL EXAMINATION: MRI OF THE BRAIN WITHOUT CONTRAST 03/01/2023 3:32 pm TECHNIQUE: Multiplanar multisequence MRI of the brain was performed without the administration of intravenous contrast. COMPARISON: None. HISTORY: ORDERING SYSTEM PROVIDED HISTORY: Reason for Exam: MIGRAINE FINDINGS: INTRACRANIAL STRUCTURES/VENTRICLES: There is no acute infarct. No mass effect or midline shift. No evidence of an acute intracranial hemorrhage. The ventricles and sulci are normal in size and configuration. The sellar/suprasellar regions appear unremarkable. The normal signal voids within the major intracranial vessels appear maintained. ORBITS: The visualized portion of the orbits demonstrate no acute abnormality. SINUSES: The visualized paranasal sinuses and mastoid air cells demonstrate no acute abnormality. Mucous retention cyst alveolar recess right maxillary sinus. BONES/SOFT TISSUES: The bone marrow signal intensity appears normal. The soft tissues demonstrate no acute abnormality. IMPRESSION: Normal MRI of the brain. Interpreted by: Missael Osborne Preliminary Report By: Missael Osborne Electronically signed By Missael Osborne Dictated Date: 03/09/2023 9:00:26 AM Prelim Date: 03/09/2023 9:03:20 AM Sign Date: 03/09/2023 9:03:20 AM Ordering Provider: JORDAN Vences [facility] ([place]) XR ABDOMEN 2 VIEWS W/ DECUB/ ERECTon 03-08-2023 XR ABDOMEN 2 VIEWS W/ DECUB/ERECT ORIGINAL EXAMINATION: Supine and upright 2 XRAY VIEWS OF THE ABDOMEN03/04/2023 5:09 pm COMPARISON: None HISTORY: ORDERING SYSTEM PROVIDED HISTORY: Reason for Exam: ABDOMINAL PAIN FINDINGS: Nonobstructive bowel gas pattern. No dilated bowel loops, abnormal fluid levels or free air. Moderate stool in the colon and rectum. No obvious urinary calculi. Right pelvic phleboliths. No acute skeletal abnormality. Included lung bases are noncontributory. IMPRESSION: No acute findings. Moderate stool in the colon. Interpreted by: Gregory Hubbard MD Preliminary Report By: Gregory Hubbard MD Electronically signed By Gregory Hubbard MD Dictated Date: 03/08/2023 7:37:02 AM Prelim Date: 03/08/2023 7:37:43 AM Sign Date: 03/08/2023 7:37:43 AM Ordering Provider: MARK Vences [facility] ([place]) .Auto Diffon 03-04-2023 Basophil, Absolute 0.0 10 3/mcL Normal 0.0-0.2 [facility] ([place]) Comment on above: Performed By: #### H FP, ADIFF, LIPID, FT4, ANEU, GFR, CBC, ESR, TSH, BMP ####[address] [place], [place] [address] Basophils/100 WBC (Bld) 0.2 % Normal 0.0-2.5 [facility] ([place]) Comment on above: Performed By: #### H FP, ADIFF, LIPID, FT4, ANEU, GFR, CBC, ESR, TSH, BMP ####[address] [place], [place] [address] Eosinophil, Absolute 0.1 10 3/mcL Normal 0.0-0.4 [facility] ([place]) Comment on above: Performed By: #### H FP, ADIFF, LIPID, FT4, ANEU, GFR, CBC, ESR, TSH, BMP ####[address] [place], [place] [address] Eosinophils/100 WBC (Bld) 1.0 % Normal 0.0-7.0 [facility] ([place]) Comment on above: Performed By: #### H FP, ADIFF, LIPID, FT4, ANEU, GFR, CBC, ESR, TSH, BMP ####[address] [place], [place] [address] Lymphocyte, Absolute 2.3 10 3/mcL Normal 0.8-3.9 [facility] ([place]) Comment on above: Performed By: #### H FP, ADIFF, LIPID, FT4, ANEU, GFR, CBC, ESR, TSH, BMP ####[address] [place], [place] [address] Lymphocytes/100 WBC (Bld) 34.4 % Normal 10.0-50.0 [facility] ([place]) Comment on above: Performed By: #### H FP, ADIFF, LIPID, FT4, ANEU, GFR, CBC, ESR, TSH, BMP ####[address] [place], [place] [address] Monocyte, Absolute 0.4 10 3/mcL Normal 0.2-1.0 [facility] ([place]) Comment on above: Performed By: #### H FP, ADIFF, LIPID, FT4, ANEU, GFR, CBC, ESR, TSH, BMP ####[address] [place], [place] [address] Monocytes/100 WBC (Bld) 5.4 % Normal 1.7-13.0 [facility] ([place]) Comment on above: Performed By: #### H FP, ADIFF, LIPID, FT4, ANEU, GFR, CBC, ESR, TSH, BMP ####[address] [place], [place] [address] Neutrophils/100 WBC (Bld) 59.0 % Normal 37.0-80.0 [facility] ([place]) Comment on above: Performed By: #### H FP, ADIFF, LIPID, FT4, ANEU, GFR, CBC, ESR, TSH, BMP ####[address] [place], [place] [address] .GFRon 03-04-2023 GFR 110 ml/min/1.73sqm Normal [facility] ([place]) Comment on above: Result Comment: GFR Population mean for , Non- Americans Ages 20-29 = 116 mL/min/1.73 sq.m. Ages 30-39 = 107 mL/min/1.73 sq.m. Ages 40-49 = 99 mL/min/1.73 sq.m. Ages 50-59 = 93 mL/min/1.73 sq.m. Ages 60-69 = 85 mL/min/1.73 sq.m. Ages 70+ = 75 mL/min/1.73 sq.m. Chronic Kidney Disease: Less than 60 mL/min/1.73 square meters End Stage Renal Disease: Less than 15 mL/min/1.73 square meters Performed By: #### H FP, ADIFF, LIPID, FT4, ANEU, GFR, CBC, ESR, TSH, BMP ####[address] [place], [place] [address] GFR Non- 91 ml/min/1.73sqm Normal [facility] ([place]) Comment on above: Result Comment: GFR Population mean for , Non- Americans Ages 20-29 = 116 mL/min/1.73 sq.m. Ages 30-39 = 107 mL/min/1.73 sq.m. Ages 40-49 = 99 mL/min/1.73 sq.m. Ages 50-59 = 93 mL/min/1.73 sq.m. Ages 60-69 = 85 mL/min/1.73 sq.m. Ages 70+ = 75 mL/min/1.73 sq.m. Chronic Kidney Disease: Less than 60 mL/min/1.73 square meters End Stage Renal Disease: Less than 15 mL/min/1.73 square meters Performed By: #### H FP, ADIFF, LIPID, FT4, ANEU, GFR, CBC, ESR, TSH, BMP ####[address] [place], [place] [address] .NEUABSon 03-04-2023 Neutrophil, Absolute 3.9 10 3/mcL Normal 2.9-6.2 [facility] ([place]) Comment on above: Performed By: #### H FP, ADIFF, LIPID, FT4, ANEU, GFR, CBC, ESR, TSH, BMP ####[address] [place], [place] [address] BMPon 03-04-2023 BUN/Creatinine Ratio 7 ratio Normal 7-27 [facility] ([place]) Comment on above: Performed By: #### H FP, ADIFF, LIPID, FT4, ANEU, GFR, CBC, ESR, TSH, BMP ####[address] [place], [place] [address] Calcium [Mass/Vol] 9.7 mg/dL Normal 8.4-10.2 [facility] ([place]) Comment on above: Performed By: #### H FP, ADIFF, LIPID, FT4, ANEU, GFR, CBC, ESR, TSH, BMP ####[address] [place], [place] [address] Chloride [Moles/Vol] 104 mmol/L Normal 98-107 [facility] ([place]) Comment on above: Performed By: #### H FP, ADIFF, LIPID, FT4, ANEU, GFR, CBC, ESR, TSH, BMP ####[address] [place] [id number] CO2 [Moles/Vol] 31 mmol/L High 22-29 [facility] ([place]) Comment on above: Performed By: #### H FP, ADIFF, LIPID, FT4, ANEU, GFR, CBC, ESR, TSH, BMP ####[address] [place], [place] [address] Creatinine [Mass/Vol] 0.71 mg/dL Normal 0.55-1.02 [facility] ([place]) Comment on above: Performed By: #### H FP, ADIFF, LIPID, FT4, ANEU, GFR, CBC, ESR, TSH, BMP ####[address] [place] [id number] Electrolyte Balance 7.0 mEq/L Normal 4.0-15.0 [facility] ([place]) Comment on above: Performed By: #### H FP, ADIFF, LIPID, FT4, ANEU, GFR, CBC, ESR, TSH, BMP ####[address] [place] [id number] Glucose [Mass/Vol] 90 mg/dL Normal 70-105 [facility] ([place]) Comment on above: Performed By: #### H FP, ADIFF, LIPID, FT4, ANEU, GFR, CBC, ESR, TSH, BMP ####[address] [place], [place] [address] Potassium [Moles/Vol] 4.3 mmol/L Normal 3.5-5.1 [facility] ([place]) Comment on above: Performed By: #### H FP, ADIFF, LIPID, FT4, ANEU, GFR, CBC, ESR, TSH, BMP ####[address] [place], [place] [address] Sodium [Moles/Vol] 142 mmol/L Normal 136-145 [facility] ([place]) Comment on above: Performed By: #### H FP, ADIFF, LIPID, FT4, ANEU, GFR, CBC, ESR, TSH, BMP ####[address] [place], [place] [address] Urea nitrogen [Mass/Vol] 5 mg/dL Low 7-18 [facility] ([place]) Comment on above: Performed By: #### H FP, ADIFF, LIPID, FT4, ANEU, GFR, CBC, ESR, TSH, BMP ####[address] [place], [place] [address] CBCon 03-04-2023 Erythrocyte distribution width (RBC) [Ratio] 13.1 % Normal 11.5-14.5 [facility] ([place]) Comment on above: Performed By: #### H FP, ADIFF, LIPID, FT4, ANEU, GFR, CBC, ESR, TSH, BMP ####[address] [place], [place] [address] Hematocrit (Bld) [Volume fraction] 39.6 % Normal 37.0-47.0 [facility] ([place]) Comment on above: Performed By: #### H FP, ADIFF, LIPID, FT4, ANEU, GFR, CBC, ESR, TSH, BMP ####[address] [place], [place] [address] Hgb 13.3 G/dL Normal 12.0-16.0 [facility] ([place]) Comment on above: Performed By: #### H FP, ADIFF, LIPID, FT4, ANEU, GFR, CBC, ESR, TSH, BMP ####[address] [place], [place] [address] MCH (RBC) [Entitic mass] 28.8 pg Normal 27.0-31.2 [facility] ([place]) Comment on above: Performed By: #### H FP, ADIFF, LIPID, FT4, ANEU, GFR, CBC, ESR, TSH, BMP ####[address] [place], [place] [address] MCHC 33.5 G/dL Normal 33.0-37.0 [facility] ([place]) Comment on above: Performed By: #### H FP, ADIFF, LIPID, FT4, ANEU, GFR, CBC, ESR, TSH, BMP ####[address] [place], [place] [address] MCV (RBC) [Entitic vol] 85.9 fL Normal 80.0-94.0 [facility] ([place]) Comment on above: Performed By: #### H FP, ADIFF, LIPID, FT4, ANEU, GFR, CBC, ESR, TSH, BMP ####[address] [place], [place] [address] Platelet 361 10 3/mcL Normal 130-400 [facility] ([place]) Comment on above: Performed By: #### H FP, ADIFF, LIPID, FT4, ANEU, GFR, CBC, ESR, TSH, BMP ####[address] [place], [place] [address] Platelet mean volume (Bld) [Entitic vol] 8.3 fL Normal 7.4-10.4 [facility] ([place]) Comment on above: Performed By: #### H FP, ADIFF, LIPID, FT4, ANEU, GFR, CBC, ESR, TSH, BMP ####[address] [place], [place] [address] RBC 4.61 10 6/mcL Normal 4.20-5.40 [facility] ([place]) Comment on above: Performed By: #### H FP, ADIFF, LIPID, FT4, ANEU, GFR, CBC, ESR, TSH, BMP ####[address] [place], [place] [address] WBC 6.6 10 3/mcL Normal 4.6-10.8 [facility] ([place]) Comment on above: Performed By: #### H FP, ADIFF, LIPID, FT4, ANEU, GFR, CBC, ESR, TSH, BMP ####[address] [place], [place] [address] ESRon 03-04-2023 Erythrocyte Sed Rate 3 mm/hr Normal 0-20 [facility] ([place]) Comment on above: Performed By: #### H FP, ADIFF, LIPID, FT4, ANEU, GFR, CBC, ESR, TSH, BMP ####[address] [place], [place] [address] FT4on 03-04-2023 Free T4 [Mass/Vol] 0.95 ng/dL Normal 0.76-1.46 [facility]) Comment on above: Performed By: #### H FP, ADIFF, LIPID, FT4, ANEU, GFR, CBC, ESR, TSH, BMP ####[address] [place], [place] [address] HFPon 03-04-2023 Bili Indirect 0.2 mg/dL Normal [facility] ([place]) Comment on above: Performed By: #### H FP, ADIFF, LIPID, FT4, ANEU, GFR, CBC, ESR, TSH, BMP ####[address] [place], [place] [address] Albumin Level 4.0 G/dL Normal 3.5-5.0 [facility]) Comment on above: Performed By: #### H FP, ADIFF, LIPID, FT4, ANEU, GFR, CBC, ESR, TSH, BMP ####[address] [place], [place] [address] Albumin/Globulin [Mass ratio] 1.2 {ratio} Normal 1.1-2.5 [facility]) Comment on above: Performed By: #### H FP, ADIFF, LIPID, FT4, ANEU, GFR, CBC, ESR, TSH, BMP ####[address] [place], [place] [address] ALP [Catalytic activity/Vol] 74 U/L Normal 40-135 [facility]) Comment on above: Performed By: #### H FP, ADIFF, LIPID, FT4, ANEU, GFR, CBC, ESR, TSH, BMP ####[address] [place], [place] [address] ALT [Catalytic activity/Vol] 29 U/L Normal 14-59 [facility] ([place]) Comment on above: Performed By: #### H FP, ADIFF, LIPID, FT4, ANEU, GFR, CBC, ESR, TSH, BMP ####[address] [place], [place] [address] AST [Catalytic activity/Vol] 19 U/L Normal 10-40 [facility] ([place]) Comment on above: Performed By: #### H FP, ADIFF, LIPID, FT4, ANEU, GFR, CBC, ESR, TSH, BMP ####[address] [place], [place] [address] Bili Direct 0.1 mg/dL Normal 0.0-0.2 [facility] ([place]) Comment on above: Result Comment: Use of this assay is not recommended for patients undergoing treatment with eltrombopag due to the potential for falsely elevated results. Performed By: #### H FP, ADIFF, LIPID, FT4, ANEU, GFR, CBC, ESR, TSH, BMP ####[address] [place], [place] [address] Bili Total 0.3 mg/dL Normal 0.2-1.0 [facility] ([place]) Comment on above: Result Comment: Use of this assay is not recommended for patients undergoing treatment with eltrombopag due to the potential for falsely elevated results. Performed By: #### H FP, ADIFF, LIPID, FT4, ANEU, GFR, CBC, ESR, TSH, BMP ####[address] [place], [place] [address] Globulin 3.4 G/dL Normal [facility] ([place]) Comment on above: Performed By: #### H FP, ADIFF, LIPID, FT4, ANEU, GFR, CBC, ESR, TSH, BMP ####[address] [place], [place] [address] Total Protein 7.4 G/dL Normal 6.4-8.2 [facility] ([place]) Comment on above: Performed By: #### H FP, ADIFF, LIPID, FT4, ANEU, GFR, CBC, ESR, TSH, BMP ####[address] [place], [place] [address] LABORATORYOrdered By: SYSTEM SYSTEM on 03-04-2023 Albumin BCP dye [Mass/Vol] 4.0 G/dL Invalid Interpretation Code 3.5 - 5.0 G/dL AO ADM SS Albumin/Globulin [Mass ratio] 1.2 {ratio} Invalid Interpretation Code 1.1 - 2.5 ratio AO ADM SS ALP [Catalytic activity/Vol] 74 U/L Invalid Interpretation Code 40 - 135 U/L AO ADM SS ALT With P-5'-P [Catalytic activity/Vol] 29 U/L Invalid Interpretation Code 14 - 59 U/L AO ADM SS AST With P-5'-P [Catalytic activity/Vol] 19 U/L Invalid Interpretation Code 10 - 40 U/L AO ADM SS Basophil, Absolute 0.0 103/mcL Invalid Interpretation Code 0.0 - 0.2 10^3/mcL AO Workflow SS Basophils/100 WBC (Bld) 0.2 % Invalid Interpretation Code 0.0 - 2.5 % AO Workflow SS Bilirubin [Mass/Vol] 0.3 mg/dL Invalid Interpretation Code 0.2 - 1.0 mg/dL AO ADM SS Bilirubin.direct [Mass/Vol] 0.1 mg/dL Invalid Interpretation Code 0.0 - 0.2 mg/dL AO ADM SS Bilirubin.direct [Mass/Vol] 0.2 mg/dL Invalid Interpretation Code AO Chemistry S Calcium [Mass/Vol] 9.7 mg/dL Invalid Interpretation Code 8.4 - 10.2 mg/dL AO ADM SS Chloride [Moles/Vol] 104 mmol/L Invalid Interpretation Code 98 - 107 mmol/L AO ADM SS CO2 [Moles/Vol] 31 mmol/L Invalid Interpretation Code 22 - 29 mmol/L AO ADM SS Creatinine [Mass/Vol] 0.71 mg/dL Invalid Interpretation Code 0.55 - 1.02 mg/dL AO ADM SS Electrolyte Balance 7.0 mEq/L Invalid Interpretation Code 4.0 - 15.0 mEq/L AO ADM SS Eosinophil, Absolute 0.1 103/mcL Invalid Interpretation Code 0.0 - 0.4 10^3/mcL AO Workflow SS Eosinophils/100 WBC (Bld) 1.0 % Invalid Interpretation Code 0.0 - 7.0 % AO Workflow SS Erythrocyte distribution width (RBC) [Ratio] 13.1 % Invalid Interpretation Code 11.5 - 14.5 % AO Workflow SS Free T4 [Mass/Vol] 0.95 ng/dL Invalid Interpretation Code 0.76 - 1.46 ng/dL AO ADM SS GFR/1.73 sq M.predicted among blacks MDRD (S/P/Bld) [Vol rate/Area] 110 ml/min/1.73sqm Invalid Interpretation Code AO Chemistry S GFR/1.73 sq M.predicted among non-blacks MDRD (S/P/Bld) [Vol rate/Area] 91 ml/min/1.73sqm Invalid Interpretation Code AO Chemistry S Globulin 3.4 G/dL Invalid Interpretation Code AO ADM SS Glucose [Mass/Vol] 90 mg/dL Invalid Interpretation Code 70 - 105 mg/dL AO ADM SS Hematocrit (Bld) [Volume fraction] 39.6 % Invalid Interpretation Code 37.0 - 47.0 % AO Workflow SS Hemoglobin (Bld) [Mass/Vol] 13.3 G/dL Invalid Interpretation Code 12.0 - 16.0 G/dL AO Workflow SS Lymphocyte, Absolute 2.3 103/mcL Invalid Interpretation Code 0.8 - 3.9 10^3/mcL AO Workflow SS Lymphocytes/100 WBC (Bld) 34.4 % Invalid Interpretation Code 10.0 - 50.0 % AO Workflow SS MCH (RBC) [Entitic mass] 28.8 pg Invalid Interpretation Code 27.0 - 31.2 pg AO Workflow SS MCHC 33.5 G/dL Invalid Interpretation Code 33.0 - 37.0 G/dL AO Workflow SS MCV (RBC) [Entitic vol] 85.9 fL Invalid Interpretation Code 80.0 - 94.0 fL AO Workflow SS Monocyte, Absolute 0.4 103/mcL Invalid Interpretation Code 0.2 - 1.0 10^3/mcL AO Workflow SS Monocytes/100 WBC (Bld) 5.4 % Invalid Interpretation Code 1.7 - 13.0 % AO Workflow SS Neutrophil, Absolute 3.9 103/mcL Invalid Interpretation Code 2.9 - 6.2 10^3/mcL AO Workflow SS Neutrophils/100 WBC (Bld) 59.0 % Invalid Interpretation Code 37.0 - 80.0 % AO Workflow SS Platelet mean volume (Bld) [Entitic vol] 8.3 fL Invalid Interpretation Code 7.4 - 10.4 fL AO Workflow SS Platelets (Bld) [#/Vol] 361 103/mcL Invalid Interpretation Code 130 - 400 10^3/mcL AO Workflow SS Potassium [Moles/Vol] 4.3 mmol/L Invalid Interpretation Code 3.5 - 5.1 mmol/L AO ADM SS Protein [Mass/Vol] 7.4 G/dL Invalid Interpretation Code 6.4 - 8.2 G/dL AO ADM SS RBC (Bld) [#/Vol] 4.61 106/mcL Invalid Interpretation Code 4.20 - 5.40 10^6/mcL AO Workflow SS Sodium [Moles/Vol] 142 mmol/L Invalid Interpretation Code 136 - 145 mmol/L AO ADM SS TSH Qn 4.87 m[IU]/L Invalid Interpretation Code 0.36 - 3.74 mcIU/mL AO ADM SS Urea nitrogen [Mass/Vol] 5 mg/dL Invalid Interpretation Code 7 - 18 mg/dL AO ADM SS Urea nitrogen/Creatinine [Mass ratio] 7 ratio Invalid Interpretation Code 7 - 27 ratio AO ADM SS WBC (Bld) [#/Vol] 6.6 103/mcL Invalid Interpretation Code 4.6 - 10.8 10^3/mcL AO Workflow SS LABORATORYOrdered By: Kamilla Cohen on 03-04-2023 Cholesterol [Mass/Vol] 191 mg/dL Invalid Interpretation Code 0 - 200 mg/dL AO ADM SS Cholesterol in HDL [Mass/Vol] 72 mg/dL Invalid Interpretation Code 40 - 60 mg/dL AO ADM SS Cholesterol in LDL [Mass/Vol] 100 mg/dL Invalid Interpretation Code 0 - 130 mg/dL AO ADM SS Triglyceride [Mass/Vol] 95 mg/dL Invalid Interpretation Code 0 - 150 mg/dL AO ADM SS LABORATORYOrdered By: Bryson La on 03-04-2023 ESR Photometric method (Bld) [Velocity] 3 mm/hr Invalid Interpretation Code 0 - 20 mm/hr AO Man Heme SS LIPIDon 03-04-2023 Cholesterol [Mass/Vol] 191 mg/dL Normal 0-200 [facility] ([place]) Comment on above: Result Comment: Chol esterol Reference Interval: Less than 200 Desirable 200-239 Borderline high risk 240 and above High risk Performed By: #### H FP, ADIFF, LIPID, FT4, ANEU, GFR, CBC, ESR, TSH, BMP ####[address] [place], [place] [address] Cholesterol in HDL [Mass/Vol] 72 mg/dL High 40-60 [facility] ([place]) Comment on above: Performed By: #### H FP, ADIFF, LIPID, FT4, ANEU, GFR, CBC, ESR, TSH, BMP ####[address] [place], [place] [address] Cholesterol in LDL [Mass/Vol] 100 mg/dL Normal 0-130 [facility] ([place]) Comment on above: Performed By: #### H FP, ADIFF, LIPID, FT4, ANEU, GFR, CBC, ESR, TSH, BMP ####[address] [place], [place] [address] Triglyceride [Mass/Vol] 95 mg/dL Normal 0-150 [facility] ([place]) Comment on above: Result Comment: Trig lyceride Reference Interval: Less than 150 Normal 150-199 Borderline high risk 200-499 High risk 500 or higher Very high risk Performed By: #### H FP, ADIFF, LIPID, FT4, ANEU, GFR, CBC, ESR, TSH, BMP ####[address] [place], [place] [address] TSHon 03-04-2023 TSH Qn 4.87 m[IU]/L High 0.36-3.74 [facility] ([place]) Comment on above: Performed By: #### H FP, ADIFF, LIPID, FT4, ANEU, GFR, CBC, ESR, TSH, BMP ####[address] [place], [place] [address] HBV surface Ab Ql (S)on 12-22 HBV surface Ab Qn (S) 142.48 mIU/mL Normal >=12.00 [facility] Comment on above: Order Comment: Speci men Type: BLOOD SPECIMEN Ordering Facility: [facility] Address: [address] [place] [address] Performed By: #### R UBHELADIO, [id number], MEASLG, MUMPSG #### [facility] CLIA [id number] [address] [place] [address] [place] HBV surface Ab Ser Qlon 05- HBV surface Ab Ql (S) Positive Normal Positive [facility] Comment on above: Order [facility]: [facility] Ordering Facility: [facility] Address: [address] [place] [address] Result Comment: Thes e results are consistent with previous exposure and/or immunity to the hepatitis B virus antigen. Performed By: #### R UBIGG, 75953-0, MEASLG, MUMPSG #### [facility] CLIA [id number] [address] [place] [address] [place] MUMPS IGG ABon 01-15-2023 MUMPS IGG, QUAL Positive Normal Positive [facility] Comment on above: Order Comment: [facility]: [facility] Ordering Facility: [facility] Address: [address] [place] [address] Result Comment: The result suggests recent or past exposure to Mumps virus or Mumps vaccination. The current test does not detect neutralizing antibodies. Positive result may also be seen due to presence of passively-transferred antibodies. Please correlate with patient's history. Performed By: #### R UBIGG, 51597-2, MEASLG, MUMPSG #### [facility] CLIA [id number] [address] [place] [address] [place] RUBELLA IGG ABon 01-15-2023 RUBELLA IGG AB, QUAL Positive Normal Positive [facility] Comment on above: Order Comment: [facility]: BLOOD [facility] Ordering Facility: [facility] Address: [address] [place] [address] Result Comment: The result suggests recent or past exposure to Rubella virus or history of Rubella vaccination. Positive result may also be seen due to presence of passively-transferred antibodies. Please correlate with patient's history. Performed By: #### R UBIGG, [id number], MEASLG, MUMPSG #### [facility] CLIA [id number] [address] [place] [address] [place] RUBEOLA (MEASLES)IGGon 01-15 MEASLES IGG AB, QUAL Positive Normal Positive [facility] Comment on above: Order Comment: Speci men Type: BLOOD SPECIMEN Ordering Facility: [facility] Address: [address] [place] [address] Result Comment: The result suggests recent or past exposure to Measles virus or Measles vaccination. The current test does not detect neutralizing antibodies. Positive result may also be seen due to presence of passively-transferred antibodies. Please correlate with patient's history. Performed By: #### R UBIGG, [id number], MEASLG, MUMPSG #### [facility] CLIA [id number] [address] [place] [address] [place] Vital Signs Date Time Vital Sign Value Performing Clinician Dewey alicea 01-23-2025 09:59-0400 Body mass index (BMI) [Ratio] 20.49 kg/m2 Mariana Acuañ CONFIGURATION CONSULTANT - ELECTRICAL AND INSTRUMENT ENGINEER Work Phone: [employer] [facility] [facility] 01-23-2025 09:59-0400 Body temperature 98.2 [degF] Mariana Acuña CONFIGURATION CONSULTANT - ELECTRICAL AND INSTRUMENT ENGINEER Work Phone: [facility] 01-23-2025 09:59-0400 Body weight 54.16 kg Mariana Acuña CONFIGURATION CONSULTANT - ELECTRICAL AND INSTRUMENT ENGINEER Work Phone: [facility] 01-23-2025 09:59-0400 Diastolic blood pressure 72 mm[Hg] Mariana Acuña CONFIGURATION CONSULTANT - ELECTRICAL AND INSTRUMENT ENGINEER Work Phone: [employer] [facility] 01-23-2025 09:59-0400 Heart rate 85 /min Mariana Acuña CONFIGURATION CONSULTANT - ELECTRICAL AND INSTRUMENT ENGINEER Work Phone: [facility] 01-23-2025 09:59-0400 Systolic blood pressure 131 mm[Hg] Mariana Acuña CONFIGURATION CONSULTANT - ELECTRICAL AND INSTRUMENT ENGINEER Work Phone: [facility] 01-19-2025 13:08-0400 Body temperature 97.2 [degF] Dr. Mark Shabazz MD Work Phone: [facility] 01-19-2025 13:08-0400 Diastolic blood pressure 69 mm[Hg] Dr. Mark Shabazz MD Work Phone: [facility] 01-19-2025 13:08-0400 Heart rate 70 /min Dr. Mark Shabazz MD Work Phone: [facility] 01-19-2025 13:08-0400 Respiratory rate 16 /min Dr. Mark Shabazz MD Work Phone: [facility] 01-19-2025 13:08-0400 SaO2% (BldA) [Mass fraction] 96 % Dr. Mark Shabazz MD Work Phone: [facility] 01-19-2025 13:08-0400 Systolic blood pressure 116 mm[Hg] Dr. Mark Shabazz MD Work Phone: [facility] 01-19-2025 10:57-0400 Body height 162.[address] Mark Shabazz MD Work Phone: [facility] 01-19-2025 10:57-0400 Body mass index (BMI) [Ratio] 20.4 kg/m2 Dr. Mark Shabazz MD Work Phone: [facility] 01-19-2025 10:57-0400 Body weight [address] Mark Shabazz MD Work Phone: [facility] 01-09-2025 11:22-0400 Body height 162.[address] Mark Shabazz MD Work Phone: [facility] 01-09-2025 11:22-0400 Body mass index (BMI) [Ratio] 20.4 kg/m2 Dr. Mark Shabazz MD Work Phone: [facility] 01-09-2025 11:22-0400 Body weight 53.[address] Mark Shabazz MD Work Phone: [facility] 01-09-2025 11:22-0400 Diastolic blood pressure 62 mm[Hg] Dr. Mark Shabazz MD Work Phone: [facility] 01-09-2025 11:22-0400 Systolic blood pressure 108 mm[Hg] Dr. Mark Shabazz MD Work Phone: 9(163)436-330328 [address] 01-03-2025 14:23-0400 Diastolic blood pressure 66 mm[Hg] Dr. Mark Shabazz MD Work Phone: 1(030)028-254922 [place] [address] 01-03-2025 14:23-0400 Heart rate 77 /min Dr. Mark Shabazz MD Work Phone: 5(759)517-529026 [place] [address] 01-03-2025 14:23-0400 Respiratory rate 16 /min Dr. Mark Shabazz MD Work Phone: 6(005)197-745626 [place] [address] 01-03-2025 14:23-0400 SaO2% (BldA) [Mass fraction] 98 % Dr. Mark Shabazz MD Work Phone: 9(824)231-394922 [place] [address] 01-03-2025 14:23-0400 Systolic blood pressure 151 mm[Hg] Dr. Mark Shabazz MD Work Phone: 0(857)205-376122 [place] [address] 01-03-2025 12:30-0400 Body mass index (BMI) [Ratio] 19.7 kg/m2 Dr. Mark Shabazz MD Work Phone: 8(129)929-258922 [place] [address] 01-03-2025 12:30-0400 Body weight 52.[address] Mark Shabazz MD Work Phone: 6(531)667-697826 [place] [address] 12-25-2024 15:07-0400 Body mass index (BMI) [Ratio] 20.5 kg/m2 Dr. Mark Shabazz MD Work Phone: 3(254)934-882228 [address] 12-25-2024 15:07-0400 Body weight 54.[address] Mark Shabazz MD Work Phone: 0(677)221-720422 [place] [address] 12-25-2024 15:07-0400 Diastolic blood pressure 68 mm[Hg] Dr. Mark Shabazz MD Work Phone: [facility] 12-25-2024 15:07-0400 Heart rate 64 /min Dr. Mark Shabazz MD Work Phone: [facility] 12-25-2024 15:07-0400 Respiratory rate 17 /min Dr. Mark Shabazz MD Work Phone: [facility] 12-25-2024 15:07-0400 SaO2% (BldA) [Mass fraction] 99 % Dr. Mark Shabazz MD Work Phone: [facility] 12-25-2024 15:07-0400 Systolic blood pressure 110 mm[Hg] Dr. Mark Shabazz MD Work Phone: [facility] 12-12-2024 10:04-0400 Body height 162.6 cm Marianamagaly Acuña CONFIGURATION CONSULTANT - ELECTRICAL AND INSTRUMENT ENGINEER Work Phone: [facility] 12-12-2024 10:04-0400 Body mass index (BMI) [Ratio] 19.22 kg/m2 Mariana Domenico CONFIGURATION CONSULTANT - ELECTRICAL AND INSTRUMENT ENGINEER Work Phone: [facility] 12-12-2024 10:04-0400 Body weight 50.8 kg Mariana Domenico CONFIGURATION CONSULTANT - ELECTRICAL AND INSTRUMENT ENGINEER Work Phone: [facility] 12-12-2024 10:04-0400 Diastolic blood pressure 70 mm[Hg] Marianamagaly Acuña CONFIGURATION CONSULTANT - ELECTRICAL AND INSTRUMENT ENGINEER Work Phone: [facility] 12-12-2024 10:04-0400 Systolic blood pressure 114 mm[Hg] Mariana Acuña CONFIGURATION CONSULTANT - ELECTRICAL AND INSTRUMENT ENGINEER Work Phone: [facility] 11-22-2024 09:46-0400 Body height 162.[address] Mark Shabazz MD Work Phone: [facility] 11-22-2024 09:46-0400 Body mass index (BMI) [Ratio] 21.2 kg/m2 Dr. Mark Shabazz MD Work Phone: [facility] 11-22-2024 09:46-0400 Body weight 56.[address] Mark Shabazz MD Work Phone: [facility] 11-22-2024 09:46-0400 Diastolic blood pressure 86 mm[Hg] Dr. Mark Shabazz MD Work Phone: [facility] 11-22-2024 09:46-0400 Heart rate 71 /min Dr. Mark Shabazz MD Work Phone: [facility] 11-22-2024 09:46-0400 Respiratory rate 17 /min Dr. Mark Shabazz MD Work Phone: [facility] 11-22-2024 09:46-0400 SaO2% (BldA) [Mass fraction] 100 % Dr. Mark Shabazz MD Work Phone: [facility] 11-22-2024 09:46-0400 Systolic blood pressure 124 mm[Hg] Dr. Mark Shabazz MD Work Phone: [facility] 11-01-2024 15:36-0400 Body height 162.[address] Mark Shabazz MD Work Phone: [facility] 10-31-2024 09:31-0400 Body height 162.6 cm Mariana Acuña APRN - ELECTRICAL AND INSTRUMENT ENGINEER Work Phone: [facility] 10-31-2024 09:31-0400 Body mass index (BMI) [Ratio] 19.22 kg/m2 Mariana Acuña CONFIGURATION CONSULTANT - ELECTRICAL AND INSTRUMENT ENGINEER Work Phone: [facility] 10-31-2024 09:31-0400 Body weight 50.8 kg Mariana Acuña APRN - ELECTRICAL AND INSTRUMENT ENGINEER Work Phone: [facility] 10-31-2024 09:31-0400 Diastolic blood pressure 78 mm[Hg] Mariana Acuña APRN - ELECTRICAL AND INSTRUMENT ENGINEER Work Phone: [facility] 10-31-2024 09:31-0400 Systolic blood pressure 118 mm[Hg] Mariana Acuña CONFIGURATION CONSULTANT - ELECTRICAL AND INSTRUMENT ENGINEER Work Phone: [facility] 09-19-2024 08:07-0500 Body height 162.6 cm Mariana Acuña CONFIGURATION CONSULTANT - ELECTRICAL AND INSTRUMENT ENGINEER Work Phone: [facility] 09-19-2024 08:07-0500 Body mass index (BMI) [Ratio] 19.22 kg/m2 Mariana Acuña CONFIGURATION CONSULTANT - ELECTRICAL AND INSTRUMENT ENGINEER Work Phone: [facility] 09-19-2024 08:07-0500 Body temperature 98.1 [degF] Mariana Acuña CONFIGURATION CONSULTANT - ELECTRICAL AND INSTRUMENT ENGINEER Work Phone: [facility] 09-19-2024 08:07-0500 Body weight 50.8 kg Mariana Acuña CONFIGURATION CONSULTANT - ELECTRICAL AND INSTRUMENT ENGINEER Work Phone: [facility] 09-19-2024 08:07-0500 Diastolic blood pressure 77 mm[Hg] Mariana Acuña CONFIGURATION CONSULTANT - ELECTRICAL AND INSTRUMENT ENGINEER Work Phone: [facility] 09-19-2024 08:07-0500 Heart rate 69 /min Mariana Acuña CONFIGURATION CONSULTANT - ELECTRICAL AND INSTRUMENT ENGINEER Work Phone: [facility] 09-19-2024 08:07-0500 Systolic blood pressure 121 mm[Hg] Mariana Acuña CONFIGURATION CONSULTANT - ELECTRICAL AND INSTRUMENT ENGINEER Work Phone: [facility] 06-29-2024 14:41-0500 Body temperature 97.9 [degF] Mariana Acuña CONFIGURATION CONSULTANT - ELECTRICAL AND INSTRUMENT ENGINEER Work Phone: [facility] 06-29-2024 14:41-0500 Diastolic blood pressure 78 mm[Hg] Mariana Acuña CONFIGURATION CONSULTANT - ELECTRICAL AND INSTRUMENT ENGINEER Work Phone: [facility] 06-29-2024 14:41-0500 Heart rate 72 /min Mariana Weaversey CONFIGURATION CONSULTANT - ELECTRICAL AND INSTRUMENT ENGINEER Work Phone: [facility] 06-29-2024 14:41-0500 Systolic blood pressure 116 mm[Hg] Mariana Acuña CONFIGURATION CONSULTANT - ELECTRICAL AND INSTRUMENT ENGINEER Work Phone: [facility] 06-05-2024 14:07-0400 Body height 162.6 cm Mariana Acuña CONFIGURATION CONSULTANT - ELECTRICAL AND INSTRUMENT ENGINEER Work Phone: [facility] 06-05-2024 14:07-0400 Body mass index (BMI) [Ratio] 21.8 kg/m2 Mariana Acuña CONFIGURATION CONSULTANT - ELECTRICAL AND INSTRUMENT ENGINEER Work Phone: [facility] 06-05-2024 14:07-0400 Body temperature 97.39 [degF] Mariana Acuña CONFIGURATION CONSULTANT - ELECTRICAL AND INSTRUMENT ENGINEER Work Phone: [facility] 06-05-2024 14:07-0400 Body weight 57.61 kg Mariana Acuña CONFIGURATION CONSULTANT - ELECTRICAL AND INSTRUMENT ENGINEER Work Phone: [facility] 06-05-2024 14:07-0400 Diastolic blood pressure 86 mm[Hg] Mariana Acuña CONFIGURATION CONSULTANT - ELECTRICAL AND INSTRUMENT ENGINEER Work Phone: [facility] 06-05-2024 14:07-0400 Heart rate 75 /min Mariana Acuña CONFIGURATION CONSULTANT - ELECTRICAL AND INSTRUMENT ENGINEER Work Phone: [facility] 06-05-2024 14:07-0400 Systolic blood pressure 121 mm[Hg] Mariana Acuña CONFIGURATION CONSULTANT - ELECTRICAL AND INSTRUMENT ENGINEER Work Phone: [facility] 02-16-2024 09:04-0400 Body temperature 98.1 [degF] Mariana Acuña CONFIGURATION CONSULTANT - ELECTRICAL AND INSTRUMENT ENGINEER Work Phone: [facility] 02-16-2024 09:04-0400 Diastolic blood pressure 80 mm[Hg] Mariana Acuña CONFIGURATION CONSULTANT - ELECTRICAL AND INSTRUMENT ENGINEER Work Phone: [facility] 02-16-2024 09:04-0400 Heart rate 65 /min Mariana Acuña CONFIGURATION CONSULTANT - ELECTRICAL AND INSTRUMENT ENGINEER Work Phone: [facility] 02-16-2024 09:04-0400 Systolic blood pressure 127 mm[Hg] Mariana Weaversey CONFIGURATION CONSULTANT - ELECTRICAL AND INSTRUMENT ENGINEER Work Phone: [facility] 01-04-2024 09:56-0400 Body temperature 98.1 [degF] Mariana Acuña CONFIGURATION CONSULTANT - ELECTRICAL AND INSTRUMENT ENGINEER Work Phone: [facility] 01-04-2024 09:56-0400 Diastolic blood pressure 83 mm[Hg] Mariana Acuña CONFIGURATION CONSULTANT - ELECTRICAL AND INSTRUMENT ENGINEER Work Phone: [facility] 01-04-2024 09:56-0400 Heart rate 76 /min Mariana Acuña CONFIGURATION CONSULTANT - ELECTRICAL AND INSTRUMENT ENGINEER Work Phone: [facility] 01-04-2024 09:56-0400 Systolic blood pressure 130 mm[Hg] Mariana Acuña CONFIGURATION CONSULTANT - ELECTRICAL AND INSTRUMENT ENGINEER Work Phone: [facility] 11-23-2023 13:30-0400 Body temperature 98.1 [degF] Mariana Acuña CONFIGURATION CONSULTANT - ELECTRICAL AND INSTRUMENT ENGINEER Work Phone: [facility] 11-23-2023 13:30-0400 Diastolic blood pressure 78 mm[Hg] Mariana Acuña CONFIGURATION CONSULTANT - ELECTRICAL AND INSTRUMENT ENGINEER Work Phone: [facility] 11-23-2023 13:30-0400 Heart rate 77 /min Mariana Acuña CONFIGURATION CONSULTANT - ELECTRICAL AND INSTRUMENT ENGINEER Work Phone: [facility] 11-23-2023 13:30-0400 Systolic blood pressure 108 mm[Hg] Mariana Acuña CONFIGURATION CONSULTANT - ELECTRICAL AND INSTRUMENT ENGINEER Work Phone: [facility] 10-13-2023 12:43-0500 Body temperature 96.8 [degF] ROXANA CLARK MD [facility] 10-13-2023 12:43-0500 Diastolic Blood Pressure Non-Invasive 77 mm[Hg] ROXANA CLARK MD [facility] 10-13-2023 12:43-0500 Heart rate 60 /min ROXANA CLARK MD [facility] 10-13-2023 12:43-0500 Reason For Taking VItal Signs ROXANA CLARK MD [facility] 10-13-2023 12:43-0500 Respiratory rate 16 /min ROXANA CLARK MD [facility] 10-13-2023 12:43-0500 Systolic Blood Pressure Non-Invasive 129 mm[Hg] ROXANA CLARK MD [facility] 10-13-2023 12:19-0500 Diastolic Blood Pressure Non-Invasive 81 mm[Hg] ROXANA CLRAK MD [facility] 10-13-2023 12:19-0500 Heart rate 66 /min ROXANA CLARK MD [address] 10-13-2023 12:19-0500 Mean blood pressure 97 mm[Hg] ROXANA CLARK MD [address] 10-13-2023 12:19-0500 Respiratory rate 16 /min ROXANA CLARK MD [address] 10-13-2023 12:19-0500 Systolic Blood Pressure Non-Invasive 133 mm[Hg] ROXANA CLARK MD [address] 10-13-2023 12:04-0500 Body temperature 97.34 [degF] ROXANA CLARK MD [address] [place] [address] 10-13-2023 12:04-0500 Diastolic Blood Pressure Non-Invasive 87 mm[Hg] ROXANA CLARK MD [address] [place] [address] 10-13-2023 12:04-0500 Heart rate 69 /min ROXANA CLARK MD [facility] 10-13-2023 12:04-0500 Mean blood pressure 98 mm[Hg] ROXANA CLARK MD [address] 10-13-2023 12:04-0500 Respiratory rate 14 /min ROXANA CLARK MD [facility] 10-13-2023 12:04-0500 Systolic Blood Pressure Non-Invasive 122 mm[Hg] ROXANA CLARK MD [facility] 10-13-2023 11:55-0500 Heart rate 69 /min ROXANA CLARK MD [facility] 10-13-2023 11:55-0500 Respiratory Rate - Anes 18 br/min ROXANA CLARK MD [facility] 10-13-2023 11:50-0500 Respiratory Rate - Anes 17 br/min ROXANA CLARK MD [facility] 10-13-2023 11:45-0500 Respiratory Rate - Anes 13 br/min ROXANA CLARK MD [facility] 10-13-2023 09:27-0500 Body height 162.6 cm ROXANA CLARK MD [facility] 10-13-2023 09:27-0500 Body temperature 97.34 [degF] ROXANA CLARK MD [facility] 10-13-2023 09:27-0500 Body weight 49.5 kg ROXANA CLARK MD [facility] 10-13-2023 09:27-0500 Heart rate 58 /min ROXANA CLARK MD [facility] 10-04-2023 14:49-0500 Body temperature 97.3 [degF] Mariana Acuña CONFIGURATION CONSULTANT - ELECTRICAL AND INSTRUMENT ENGINEER Work Phone: [facility] 10-04-2023 14:49-0500 Diastolic blood pressure 74 mm[Hg] Mariana Acuña CONFIGURATION CONSULTANT - ELECTRICAL AND INSTRUMENT ENGINEER Work Phone: [facility] 10-04-2023 14:49-0500 Heart rate 64 /min Marinaa Acuña CONFIGURATION CONSULTANT - ELECTRICAL AND INSTRUMENT ENGINEER Work Phone: [facility] 10-04-2023 14:49-0500 Systolic blood pressure 120 mm[Hg] Mariana Acuña CONFIGURATION CONSULTANT - ELECTRICAL AND INSTRUMENT ENGINEER Work Phone: [facility] 08-17-2023 08:42-0500 Body temperature 98.1 [degF] Mariana Acuña CONFIGURATION CONSULTANT - ELECTRICAL AND INSTRUMENT ENGINEER Work Phone: [facility] 08-17-2023 08:42-0500 Diastolic blood pressure 82 mm[Hg] Mariana Acuña CONFIGURATION CONSULTANT - ELECTRICAL AND INSTRUMENT ENGINEER Work Phone: [facility] 08-17-2023 08:42-0500 Heart rate 68 /min Mariana Acuña CONFIGURATION CONSULTANT - ELECTRICAL AND INSTRUMENT ENGINEER Work Phone: [facility] 08-17-2023 08:42-0500 Systolic blood pressure 113 mm[Hg] Mariana Acuña CONFIGURATION CONSULTANT - ELECTRICAL AND INSTRUMENT ENGINEER Work Phone: [facility] 06-25-2023 09:57-0400 Body temperature 97.2 [degF] Mariana Acuña CONFIGURATION CONSULTANT - ELECTRICAL AND INSTRUMENT ENGINEER Work Phone: [facility] 06-25-2023 09:57-0400 Diastolic blood pressure 86 mm[Hg] Mariana Acuña CONFIGURATION CONSULTANT - ELECTRICAL AND INSTRUMENT ENGINEER Work Phone: [facility] 06-25-2023 09:57-0400 Heart rate 86 /min Mariana Acuña CONFIGURATION CONSULTANT - ELECTRICAL AND INSTRUMENT ENGINEER Work Phone: [facility] 06-25-2023 09:57-0400 Systolic blood pressure 133 mm[Hg] Mariana Acuña CONFIGURATION CONSULTANT - ELECTRICAL AND INSTRUMENT ENGINEER Work Phone: [facility] 05-17-2023 11:43-0400 Body height 162.6 cm Mariana Acuña CONFIGURATION CONSULTANT - ELECTRICAL AND INSTRUMENT ENGINEER Work Phone: [facility] 05-17-2023 11:43-0400 Body mass index (BMI) [Ratio] 21.8 kg/m2 Mariana Weaversey CONFIGURATION CONSULTANT - ELECTRICAL AND INSTRUMENT ENGINEER Work Phone: [facility] 05-17-2023 11:43-0400 Body temperature 97.81 [degF] Mariana Weaversey CONFIGURATION CONSULTANT - ELECTRICAL AND INSTRUMENT ENGINEER Work Phone: [facility] 05-17-2023 11:43-0400 Body weight 57.61 kg Mariana Acuña CONFIGURATION CONSULTANT - ELECTRICAL AND INSTRUMENT ENGINEER Work Phone: [facility] 05-17-2023 11:43-0400 Diastolic blood pressure 80 mm[Hg] Mariana Acuña CONFIGURATION CONSULTANT - ELECTRICAL AND INSTRUMENT ENGINEER Work Phone: [facility] 05-17-2023 11:43-0400 Heart rate 64 /min Mariana Acuña CONFIGURATION CONSULTANT - ELECTRICAL AND INSTRUMENT ENGINEER Work Phone: [facility] 05-17-2023 11:43-0400 Systolic blood pressure 120 mm[Hg] Mariana Acuña CONFIGURATION CONSULTANT - ELECTRICAL AND INSTRUMENT ENGINEER Work Phone: [facility] 03-31-2023 13:57-0400 Body height 162.6 cm Mariana Acuña CONFIGURATION CONSULTANT - ELECTRICAL AND INSTRUMENT ENGINEER Work Phone: [facility] 03-31-2023 13:57-0400 Body mass index (BMI) [Ratio] 21.8 kg/m2 Mariana Acuña CONFIGURATION CONSULTANT - ELECTRICAL AND INSTRUMENT ENGINEER Work Phone: [facility] 03-31-2023 13:57-0400 Body weight 57.61 kg Mariana Acuña CONFIGURATION CONSULTANT - ELECTRICAL AND INSTRUMENT ENGINEER Work Phone: [facility] 03-31-2023 13:57-0400 Diastolic blood pressure 88 mm[Hg] Mariana Acuña CONFIGURATION CONSULTANT - ELECTRICAL AND INSTRUMENT ENGINEER Work Phone: [facility] 03-31-2023 13:57-0400 Heart rate 90 /min Mariana Acuña CONFIGURATION CONSULTANT - ELECTRICAL AND INSTRUMENT ENGINEER Work Phone: [facility] 03-31-2023 13:57-0400 Systolic blood pressure 130 mm[Hg] Mariana Acuña CONFIGURATION CONSULTANT - ELECTRICAL AND INSTRUMENT ENGINEER Work Phone: [facility] 02-10-2023 13:02-0400 Body height 162.6 cm Mariana Acuña CONFIGURATION CONSULTANT - ELECTRICAL AND INSTRUMENT ENGINEER Work Phone: [facility] 02-10-2023 13:02-0400 Body mass index (BMI) [Ratio] 21.8 kg/m2 Mariana Acuña CONFIGURATION CONSULTANT - ELECTRICAL AND INSTRUMENT ENGINEER Work Phone: [facility] 02-10-2023 13:02-0400 Body temperature 98.29 [degF] Mariana Acuña CONFIGURATION CONSULTANT - ELECTRICAL AND INSTRUMENT ENGINEER Work Phone: [facility] 02-10-2023 13:02-0400 Body weight 57.61 kg Mariana Acuña CONFIGURATION CONSULTANT - ELECTRICAL AND INSTRUMENT ENGINEER Work Phone: [facility] 02-10-2023 13:02-0400 Diastolic blood pressure 72 mm[Hg] Mariana Acuña CONFIGURATION CONSULTANT - ELECTRICAL AND INSTRUMENT ENGINEER Work Phone: [facility] 02-10-2023 13:02-0400 Heart rate 61 /min Mariana Acuña CONFIGURATION CONSULTANT - ELECTRICAL AND INSTRUMENT ENGINEER Work Phone: [facility] 02-10-2023 13:02-0400 Systolic blood pressure 118 mm[Hg] Mariana Acuña CONFIGURATION CONSULTANT - ELECTRICAL AND INSTRUMENT ENGINEER Work Phone: [facility] 11-04-2022 14:59-0400 Body height 162.6 cm Mariana Acuña CONFIGURATION CONSULTANT - ELECTRICAL AND INSTRUMENT ENGINEER Work Phone: [facility] 11-04-2022 14:59-0400 Body mass index (BMI) [Ratio] 21.9 kg/m2 Mariana Acuña CONFIGURATION CONSULTANT - ELECTRICAL AND INSTRUMENT ENGINEER Work Phone: [facility] 11-04-2022 14:59-0400 Body temperature 96.8 [degF] Mariana Acuña CONFIGURATION CONSULTANT - ELECTRICAL AND INSTRUMENT ENGINEER Work Phone: [facility] 11-04-2022 14:59-0400 Body weight 57.88 kg Mariana Acuña CONFIGURATION CONSULTANT - ELECTRICAL AND INSTRUMENT ENGINEER Work Phone: [facility] 11-04-2022 14:59-0400 Diastolic blood pressure 72 mm[Hg] Mariana Acuña CONFIGURATION CONSULTANT - ELECTRICAL AND INSTRUMENT ENGINEER Work Phone: [facility] 11-04-2022 14:59-0400 Heart rate 70 /min Mariana Acuña CONFIGURATION CONSULTANT - ELECTRICAL AND INSTRUMENT ENGINEER Work Phone: [facility] 11-04-2022 14:59-0400 Systolic blood pressure 113 mm[Hg] Mariana Acuña CONFIGURATION CONSULTANT - ELECTRICAL AND INSTRUMENT ENGINEER Work Phone: [facility] Encounters Encounter Date Encounter Type Care Provider Facility Start: 02-20-2025 End: 02-20-[address] Mark Shabazz MD Work Phone: -[facility] Start: 02-20-2025 End: 02-20-2025 Patient encounter procedure Unruly Toscano -[facility] Work Phone: Start: 02-06-2025 End: 02-06-[address] Mirna Gunderson DC -[facility] Work Phone: Start: 02-06-2025 End: 02-06-[address] Mark Shabazz MD Work Phone: [facility] Work Phone: Start: 02-06-2025 End: 02-06-[address] Mark Shabazz MD Work Phone: [facility] Work Phone: Start: 02-06-2025 End: 02-06-2025 Patient encounter procedure Unruly Toscano DO -Nuclear Medicine [facility] Work Phone: Start: 02-06-2025 End: 02-06-2025 ambulatory Unruly Toscano Facility:[facility] Start: 01-29-2025 End: 01-29-[address] Mirna Gunderson DC -[facility] Work Phone: Start: 01-29-2025 End: 01-29-[address] Mark Shabazz MD Work Phone: [facility] Work Phone: Start: 01-23-2025 End: 01-23-[address] Mirna Gunderson DC -[facility] Work Phone: Start: 01-23-2025 End: 01-23-[address] Mark Shabazz MD Work Phone: [facility] Work Phone: Start: 01-23-2025 End: 01-23-2025 Office outpatient visit 15 minutes Mariana Acuña [place] Husain CNP Work Phone: [facility] Comment on above: Intractable chronic migraine without aura and without status migrainosus (Primary Dx); Myofascial pain Start: 01-23-2025 End: 01-23-2025 [facility] Start: 01-19-2025 End: 01-19-2025 Admission to same day surgery center Dr. Diann Perez MD -[facility] Start: 01-19-2025 End: 01-19-[address] Mark Shabazz MD Work Phone: [facility] Work Phone: Start: 01-19-2025 Non-patient / Non-visit Dr. Diann Perez MD -[facility] Start: 01-09-2025 End: 01-09-[address] Mirna Gunderson DC -[facility] Work Phone: Start: 01-09-2025 End: 01-09-[address] Mark Shabazz MD Work Phone: [facility] Work Phone: Start: 01-09-2025 End: 01-09-2025 ambulatory Mark Shabazz Facility:[facility] Start: 01-03-2025 End: 01-03-2025 Patient encounter procedure Unruly Toscano DO -[facility] Work Phone: Start: 01-03-2025 End: 01-03-2025 ambulatory Unruly Toscano Facility:[facility] Start: 12-25-2024 End: 12-25-[address] Diann Perez MD -[facility] Work Phone: Start: 12-25-2024 End: 12-25-2024 ambulatory Diann Perez Facility:[facility] Start: 12-12-2024 End: 12-12-2024 Patient encounter procedure Mariana Acuña CONFIGURATION CONSULTANT - ELECTRICAL AND INSTRUMENT ENGINEER Work Phone: [facility] Comment on above: Intractable chronic migraine without aura and without status migrainosus (Primary Dx); Myofascial pain Start: 12-12-2024 End: 12-12-2024 ambulatory MARK SHABAZZ [facility] Start: 11-28-2024 End: 11-28-[address] Mark Shabazz MD Work Phone: [facility] Work Phone: Start: 11-28-2024 End: 11-28-[address] Diann Perez MD -[facility] Work Phone: Start: 11-28-2024 End: 11-28-2024 ambulatory [facility] Facility:[facility] Start: 11-22-2024 End: 11-22-[address] Diann Perez MD -[facility] Work Phone: Start: 11-22-2024 End: 11-22-2024 ambulatory [facility] Start: 11-14-2024 End: 11-14-[address] Mark Shabazz MD Work Phone: [facility] Work Phone: Start: 11-14-2024 End: 11-14-2024 Patient encounter procedure Maryjane STEVENSON -Outpatient Breast Imaging Work Phone: Start: 11-14-2024 End: 11-14-2024 ambulatory Maryjane Alvarado Facility:[facility] Start: 11-01-2024 End: 11-01-2024 Patient encounter procedure Mariana STEVENSON -[facility] Work Phone: Start: 11-01-2024 End: 11-01-[address] Mark Shabazz MD Work Phone: [facility] Work Phone: Start: 10-31-2024 End: 10-31-2024 Office outpatient visit 15 minutes Mariana Acuña CONFIGURATION CONSULTANT - ELECTRICAL AND INSTRUMENT ENGINEER Work Phone: [facility] Comment on above: Intractable chronic migraine without aura and without status migrainosus (Primary Dx); Myofascial pain Start: 10-31-2024 End: 11-01-2024 ambulatory [facility] Start: 09-19-2024 End: 09-19-2024 ambulatory [facility] Start: 09-19-2024 End: 09-19-2024 Patient encounter procedure Mariana Acuña CONFIGURATION CONSULTANT - ELECTRICAL AND INSTRUMENT ENGINEER Work Phone: [facility] Comment on above: Intractable chronic migraine without aura and without status migrainosus (Primary Dx); Myofascial pain Start: 08-17-2024 End: 09-19-2024 Telephone encounter Mariana Weaversmita GUTHRIE - ELECTRICAL AND INSTRUMENT ENGINEER Work Phone: [facility] Comment on above: Procedure (Botox ) Start: 08-15-2024 End: 08-15-2024 Patient encounter procedure Jayla STEVENSON -Laboratory, Specimen Work Phone: Start: 08-15-2024 End: 08-15-2024 ambulatory Mark Shabazz Facility:[facility] Start: 06-29-2024 End: 06-29-2024 Office outpatient visit 15 minutes Mariana Domenico GUTHRIE - ELECTRICAL AND INSTRUMENT ENGINEER Work Phone: [facility] Comment on above: Myofascial pain (Liss nikolay Dx); Intractable chronic migraine without aura and without status migrainosus Start: 06-29-2024 End: 07-28-2024 ambulatory Kiera Rinaldi RN [facility] Communication Start: 06-29-2024 End: 07-28-2024 Patient encounter procedure Kiera Rinaldi RN [facility] Start: 06-23-2024 [facility] Start: 06-23-2024 End: 06-23-2024 ambulatory Mark Shabazz Facility:[facility] Start: 06-13-2024 ambulatory Mark Shabazz Faci lity:[facility] Start: 06-13-2024 End: 06-13-2024 [facility] Start: 06-05-2024 End: 06-05-2024 Patient encounter procedure Mariana Domenico GUTHRIE - ELECTRICAL AND INSTRUMENT ENGINEER Work Phone: [facility] Comment on above: Intractable chronic migraine without aura and without status migrainosus (Primary Dx) Start: 06-05-2024 End: 06-06-2024 ambulatory MARIANA ACUÑA [facility] Start: 06-05-2024 End: 06-05-2024 ambulatory Jayla Dixon Facility:[facility] Start: 05-16-2024 End: 05-16-2024 [facility]ulatory [facility] Start: 05-12-2024 End: 05-12-2024 Refill Wendi Starks PharmD [facility] Comment on above: Intractable chronic migraine without aura and without status migrainosus (Primary Dx) Start: 04-13-2024 End: 04-14-2024 Telephone encounter Mariana Husain CNP Work Phone: [facility] Comment on above: Other (r/s Botox hanane t (new insurance)) Start: 02-16-2024 End: 02-16-2024 Patient encounter procedure Mariana Acuña APRN - ELECTRICAL AND INSTRUMENT ENGINEER Work Phone: [facility] Comment on above: Intractable chronic migraine without aura and without status migrainosus (Primary Dx); Myofascial pain Start: 02-16-2024 End: 02-16-2024 [facility] Start: 01-18-2024 ambulatory TRUDI MURGUIA MD Facil ity:B Start: 01-04-2024 End: 01-04-2024 Office outpatient visit 15 minutes Mariana Acuña APRN - ELECTRICAL AND INSTRUMENT ENGINEER Work Phone: [facility] Comment on above: Myofascial pain (Liss nikolay Dx); Chronic migraine without aura, intractable, without status migrainosus Start: 12-31-2023 ambulatory TRUDI MURGUIA MD Facil ity:[facility] Start: 11-23-2023 End: 11-23-2023 Patient encounter procedure Mariana Acuña CONFIGURATION CONSULTANT - ELECTRICAL AND INSTRUMENT ENGINEER Work Phone: [facility] Comment on above: Chronic migraine wit hout aura, intractable, without status migrainosus (Primary Dx) Start: 11-16-2023 End: 11-17-2023 ambulatory ROXANA CLARK MD Facility:A Start: 11-16-2023 End: 11-16-2023 Patient encounter procedure ROXANA CLARK MD [facility] Start: 10-14-2023 Refill Mariana Acuña CONFIGURATION CONSULTANT - ELECTRICAL AND INSTRUMENT ENGINEER Work Phone: [facility] Start: 10-13-2023 End: 10-13-2023 ambulatory TYRA SONI MD Facility:[facility] Start: 10-13-2023 End: 10-13-2023 SAME DAY STAY ROXANA CLARK MD [facility] Start: 10-04-2023 End: 10-04-2023 Office outpatient visit 10 minutes Mariana Acuña CONFIGURATION CONSULTANT - ELECTRICAL AND INSTRUMENT ENGINEER Work Phone: [facility] Comment on above: Chronic migraine wit hout aura, intractable, without status migrainosus (Primary Dx) Start: 09-24-2023 End: 09-25-2023 ambulatory ROXANA CLARK MD Facility:[facility] Start: 09-23-2023 End: 09-24-2023 ambulatory ELIAN NESBITT MD Facility:[facility] Start: 09-23-2023 End: 09-24-2023 Patient encounter procedure ELIAN NESBITT MD [facility] Start: 08-24-2023 Telephone encounter Mariana doll CONFIGURATION CONSULTANT - ELECTRICAL AND INSTRUMENT ENGINEER Work Phone: [facility] Comment on above: Med Management (Rx. Nurtec) Start: 08-17-2023 End: 08-22-[address] MARK SHABAZZ MD Facility:[facility] Start: 08-17-2023 End: 08-21-2023 Outreach Lab JOVANNI KOWALSKI IMAGE CONSULTANT [facility] Start: 08-17-2023 Telephone encounter Mariana odll CONFIGURATION CONSULTANT - ELECTRICAL AND INSTRUMENT ENGINEER Work Phone: [facility] Comment on above: Medication Problem Start: 08-17-2023 End: 08-17-2023 Patient encounter procedure Mariana Acuña CONFIGURATION CONSULTANT - ELECTRICAL AND INSTRUMENT ENGINEER Work Phone: [facility] Comment on above: Chronic migraine wit hout aura, intractable, without status migrainosus (Primary Dx) Start: 08-12-2023 End: 08-13-[address] MARK SHABAZZ MD Facility:[facility] Start: 08-05-2023 End: 08-06-2023 ambulatory ELIAN NEBSITT MD Facility:[facility] Start: 08-05-2023 End: 08-06-2023 ambulatory TRUDI MURGUIA MD Facility:[facility] Start: 08-05-2023 End: 08-05-2023 Patient encounter procedure ELIAN NESBITT MD [facility] Start: 08-05-2023 End: 08-05-2023 Patient encounter procedure TRUDI MURGUIA MD [facility] Start: 07-28-2023 Telephone encounter Veronique Vargas [facility] Comment on above: Other Start: 06-25-2023 End: 06-25-2023 Office outpatient visit 10 minutes Mariana Acuña CONFIGURATION CONSULTANT - ELECTRICAL AND INSTRUMENT ENGINEER Work Phone: [facility] Comment on above: Chronic migraine wit hout aura, intractable, without status migrainosus (Primary Dx) Start: 05-17-2023 End: 05-17-2023 Patient encounter procedure Mariana Domenico CONFIGURATION CONSULTANT - ELECTRICAL AND INSTRUMENT ENGINEER Work Phone: [facility] Comment on above: Chronic migraine wit hout aura, intractable, without status migrainosus (Primary Dx) Start: 03-31-2023 End: 03-31-2023 Office outpatient visit 10 minutes Mariana Weaversey CONFIGURATION CONSULTANT - ELECTRICAL AND INSTRUMENT ENGINEER Work Phone: [facility] Comment on above: Chronic migraine wit hout aura, intractable, without status migrainosus (Primary Dx) Start: 03-04-2023 End: 03-05-[address] MARK SHABAZZ MD Facility:[facility] Start: 03-04-2023 End: 03-04-[address] MARK SHABAZZ MD [facility] Start: 03-01-2023 End: 03-02-2023 ambulatory JORDAN GUILLEN MD Facility:[facility] Start: 03-01-2023 End: 03-01-2023 Patient encounter procedure JORDAN GUILLEN MD [facility] Start: 02-25-2023 Telephone encounter Mariana Bonnie doll CONFIGURATION CONSULTANT - ELECTRICAL AND INSTRUMENT ENGINEER Work Phone: [facility] Comment on above: insurance Start: 02-10-2023 End: 02-10-2023 Patient encounter procedure Mariana Domenico CONFIGURATION CONSULTANT - ELECTRICAL AND INSTRUMENT ENGINEER Work Phone: [facility] Comment on above: Chronic migraine wit hout aura, intractable, without status migrainosus (Primary Dx) Start: 01-27-2023 Refill Mariana Domenico CONFIGURATION CONSULTANT - ELECTRICAL AND INSTRUMENT ENGINEER Work Phone: [facility] Start: 01-15-2023 End: 01-15-2023 ambulatory [facility] Start: 01-15-2023 Encounter for genera l adult medical examination without abnormal findings [facility] Start: 11-26-2022 End: 11-26-2022 Patient encounter procedure PHY WO ID REFERRING [facility] Start: 11-04-2022 End: 11-04-2022 Patient encounter procedure Mariana Acuña CONFIGURATION CONSULTANT - ELECTRICAL AND INSTRUMENT ENGINEER Work Phone: [facility] Comment on above: Chronic migraine wit hout aura, intractable, without status migrainosus (Primary Dx) Start: 01-28-2022 End: 01-28-[address] [facility] [place] Procedures Date Procedure Procedure Detail Performing Clinician Start: 02-06-2025 Radionuclide study o f abdomen Dr. Mark Shabazz MD Work Phone: Start: 01-19-2025 Excisional biopsy of breast with preoperative localization Dr. Mark Shabazz MD Work Phone: Start: 01-09-2025 X-ray of cervical spine Dr. Mark Shabazz MD Work Phone: Start: 01-09-2025 X-ray of lumbosacral spine Dr. Mark Shabazz MD Work Phone: Start: 01-03-2025 MRI of small intestine Dr. Mark Shabazz MD Work Phone: Start: 11-28-2024 MRI of bilateral tere asts with contrast Dr. Mark Shabazz MD Work Phone: Start: 11-14-2024 End: 11-14-[address] Mark Shabazz MD Work Phone: Start: 11-14-[address] Mark Shabazz MD Work Phone: Start: 11-01-[address] Damien Shabazz MD Work Phone: Start: 11-01-2024 Vitamin D, 25-hydrox y measurement Dr. Mark Shabazz MD Work Phone: Comment on above: Vitamin D StatusDefi ciency: <20 ng/mL (50nmol/L)Insufficiency: 20-30 ng/mL (50-75 nmol/L)Sufficiency: 30-100 ng/mL (75-250 nmol/L)Toxicity: >100 ng/mL (>250 nmol/L) Start: 08-15-2024 Clostridium difficil e detection Dr. Mark Shabazz MD Work Phone: Start: 08-15-[address] Mark Shabazz MD Work Phone: Start: 08-15-[address] Mark Shabazz MD Work Phone: Start: 08-15-2024 Ova OR parasites identification Dr. Mark Shabazz MD Work Phone: Start: 07-23-2023 Colonoscopy ROXANA ECHEVARRIA MD Start: 01-28-2022 X-ray of lumbosacral spine Appendectomy PHY REFERRING Dilation and curettage ROXANA CLARK MD Comment on above: multiple H/O: hysterectomy History of hysterectomy Comment on above: 03/27/2019 H/O: surgery History of ovari an cystectomy H/O: surgery History of loop electrical excision procedure (LEEP) History of appendectomy History of appendectomy Comment on above: 03/27/2019,2022 History of reduction of breast History of bilateral breast reduction surgery Hysterectomy PHY REFERRING Loop electrosurgical excision procedure PHY REFERRING Lumpectomy of breast PHY REF ERRING Reduction mammoplast y, bilateral PHY REFERRING Plan of Treatment Date Care Activity Detail Author Start: 2056 RSV Immunization for Adults (1 - 1-dose 75+ series) RSV Immunization for Adults (1 - 1-dose 75+ series) [employer] [facility] [facility] Start: 2041 RSV Immunization age d 60 or older (1 - 1-dose 60+ series) RSV Immunization aged 60 or older (1 - 1-dose 60+ series) [employer] [facility] [facility] Start: 2031 Zoster Vaccines (1 of 2) Zoste r Vaccines (1 of 2) [employer] [facility] Start: 04-19-2027 DTaP/Tdap/Td Vaccine s (4 - Td or Tdap) DTaP/Tdap/Td Vaccines (4 - Td or Tdap) [facility] Start: 11-14-2025 Screening for malign ant neoplasm of breast Mammogram [facility] Start: 04-23-2025 Influenza vaccination Influenz a Vaccine (Season Ended) [facility] Start: 03-06-2025 End: 03-06-2025 Patient encounter procedure 03/06/2025 10:00 AM EDT Procedure Visit [address] [place] [address] Mariana Acuña APRN - CNP [address] [place] [address] [place] [address] [facility] Start: 01-23-2025 End: 01-23-2025 Patient encounter procedure 01/23/2025 10:00 AM EDT Office Visit [address] [place] [id number] Mariana Acuña APRN - ELECTRICAL AND INSTRUMENT ENGINEER [address] [place] [address] [facility] Start: 01-19-2025 Anes integ extremiti es ant trunk & perineum nos ANESTH SKIN EXT/PER/ATRUNK [facility] Start: 01-19-2025 Exc breast les preop plmt rad marker open 1 les EXCISION BREAST LESION [facility] Start: 01-19-2025 Patient discharge [facility] Start: 01-09-2025 X-ray of cervical spine Cerv S pine [address] [facility] Start: 01-09-2025 X-ray of lumbosacral spine L/S Spine Min [address] [facility] Start: 01-09-2025 XR Cervical spine [address] [facility] Start: 01-09-2025 XR Spine Lumbar and Sacrum GE [address] [facility] Start: 01-03-2025 Following clinical pathway protocol [facility] Start: 12-12-2024 End: 12-12-2024 Patient encounter procedure 12/12/2024 10:00 AM EDT Procedure Visit [address] [place] [address] Mariana Acuña APRN - SUDHAKAR [address] [place] [address] [place] [address] [facility] Start: 10-31-2024 End: 10-31-2024 Patient encounter procedure 10/31/2024 9:30 AM EDT Procedure Visit [address] [place] [address] Mariana Acuña, [place] - ELECTRICAL AND INSTRUMENT ENGINEER [address] [place] [address] [place] [address] [facility] Start: 09-05-2024 End: 09-05-2024 Patient encounter procedure 09/05/2024 1:30 PM EST Procedure Visit [address] [facility]vin [facility] [place] [address] Mariana Acuña, [place] - ELECTRICAL AND INSTRUMENT ENGINEER [address] [place] [address] [place] [address] [facility] Start: 08-31-2024 End: 08-31-2024 Patient encounter procedure 08/31/2024 11:30 AM EST Procedure Visit [address] Arvin Schneider [facility] [place] [address] Mariana Acuña APRN - ELECTRICAL AND INSTRUMENT ENGINEER [address] [place] [address] [place] [address] [facility] Start: 06-29-2024 End: 06-29-2024 Patient encounter procedure 06/29/2024 2:30 PM EST Procedure Visit [address] [place] [address] Mariana Acuña CONFIGURATION CONSULTANT - ELECTRICAL AND INSTRUMENT ENGINEER [address] [place] [address] [facility] Start: 05-17-2024 End: 05-17-2024 Patient encounter procedure 05/17/2024 3:00 PM EDT Procedure Visit [facility] [address] [place] [address] Mariana Acuña, CONFIGURATION CONSULTANT - ELECTRICAL AND INSTRUMENT ENGINEER [address] [place] [address] [facility] Start: 04-23-2024 COVID-19 Vaccine ( season) COVID-19 Vaccine ( season) [facility] Start: 04-23-2024 COVID-19 Vaccine ( season) COVID-19 Vaccine ( season) [facility] Start: 04-23-2024 Influenza vaccination [facility] Start: 03-29-2024 End: 03-29-2024 Patient encounter procedure [facility] Start: 02-16-2024 End: 02-16-2024 Patient encounter procedure 02/16/2024 9:00 AM EDT Procedure Visit [facility] [address] [place] [address] [place] [address] Mariana Acuña CONFIGURATION CONSULTANT - ELECTRICAL AND INSTRUMENT ENGINEER [address] [place] [address] [facility] Start: 01-04-2024 End: 01-04-2024 Patient encounter procedure 01/04/2024 3:15 PM EDT Procedure Visit [facility] [address] [place] [address] Mariana Acuña CONFIGURATION CONSULTANT - ELECTRICAL AND INSTRUMENT ENGINEER [address] [place] [address] [facility] Start: 11-23-2023 End: 11-23-2023 Patient encounter procedure 11/23/2023 1:30 PM EDT Procedure Visit [facility] [address] [place] [address] Mariana Acuña, CONFIGURATION CONSULTANT - ELECTRICAL AND INSTRUMENT ENGINEER [address] [place] [address] [facility] Start: 10-04-2023 End: 10-04-2023 Patient encounter procedure 10/04/2023 3:00 PM EST Procedure Visit [facility] [address] [place]vin [place] [facility] [place] [address] Mariana Acuña, CONFIGURATION CONSULTANT - ELECTRICAL AND INSTRUMENT ENGINEER [address] [place] [address] [facility] Start: 08-18-2023 End: 08-18-2023 Patient encounter procedure 08/18/2023 2:00 PM EST Procedure Visit [facility] [address] [place] [address] Mariana Acuña, CONFIGURATION CONSULTANT - ELECTRICAL AND INSTRUMENT ENGINEER [address] [place] [address] [facility] Start: 08-17-2023 End: 08-17-2023 Patient encounter procedure 08/17/2023 11:30 AM EST Procedure Visit [facility] [address] [place] [address] Mariana Acuña, CONFIGURATION CONSULTANT - ELECTRICAL AND INSTRUMENT ENGINEER [address] [place] [address] [facility] Start: 06-25-2023 End: 06-25-2023 Patient encounter procedure 06/25/2023 10:00 AM EDT Procedure Visit [facility] [address] [place] [address] Mariana Acuña, CONFIGURATION CONSULTANT - ELECTRICAL AND INSTRUMENT ENGINEER [address] [place] [address] [facility] Start: 05-17-2023 End: 05-17-2023 Patient encounter procedure [facility] Start: 05-14-2023 End: 05-14-2023 Patient encounter procedure 05/14/2023 1:00 PM EDT Procedure Visit [facility] [address] [place] [address] Mariana Acuña, CONFIGURATION CONSULTANT - ELECTRICAL AND INSTRUMENT ENGINEER [address] [place] [address] [facility] Start: 04-23-2023 COVID-19 Vaccine ( season) COVID-19 Vaccine ( season) [facility] Start: 04-23-2023 Influenza vaccination [facility] Start: 03-24-2023 End: 03-24-2023 Patient encounter procedure 03/24/2023 2:30 PM EDT Procedure Visit [facility] [address] [place] [address] Mariana Acuña, CONFIGURATION CONSULTANT - ELECTRICAL AND INSTRUMENT ENGINEER [address] [place] [address] [facility] Start: 03-23-2023 End: 03-23-2023 Patient encounter procedure [facility] Start: 02-10-2023 End: 02-11-2024 MR Brain WO contrast MR brain wo contrast Imaging Routine Chronic migraine without aura, intractable, without status migrainosus Expected: 02/10/2023, Expires: 02/11/2024 [facility] Work Phone: Comment on above: Expected: 02/10/2023 , Expires: 02/11/2024 Start: 02-10-2023 End: 02-10-2023 Patient encounter procedure [facility] Start: 04-23-2022 Influenza vaccination Influenza Vacc ine (#1) [facility] Start: 09-18-2021 COVID-19 Vaccine (2 - Booster for Julian series) COVID-19 Vaccine (2 - Booster for Julian series) [facility] Start: 2021 Screening for malign ant neoplasm of breast Mammogram [facility] Start: 01-07-2007 Hepatitis B Vaccines (2 of 3 - 19+ 3-dose series) Hepatitis B Vaccines (2 of 3 - 19+ 3-dose series) [facility] Start: 01-07-2007 Hepatitis B Vaccines (2 of 3 - 3-dose series) Hepatitis B Vaccines (2 of 3 - 3-dose series) [facility] Start: 1999 Diabetes mellitus screening Diabetes Screening [facility] Start: 1999 Hepatitis C screening Hepatitis C Sc reening [facility] Start: 1994 Varicella vaccination Varicell a Vaccines (1 of 2 - 13+ 2-dose series) [facility] Start: 1993 Depression Screening Depression Scre ening [facility] Start: 1982 MMR Vaccines (1 of 1 - Standard series) MMR Vaccines (1 of 1 - Standard series) [facility] Start: 1982 Varicella vaccination Varicell a Vaccines (1 of 2 - 2-dose childhood series) [facility] Start: 1981 HIV screening HIV Screening [facility] Start: 1981 Thyroid stimulating hormone measurement TSH Level [facility] C reactive protein [Mass/volume] in Serum or Plasma [facility] Catecholamines [Moles/volume] in Plasma [facility] Chiropractic manipulation [facility] Cobalamin (Vitamin B 12) [Mass/volume] in Serum or Plasma [facility] Cortisol [Mass/volum e] in Serum or Plasma [facility] Cyclic citrullinated peptide IgG Ab [Units/volume] in Serum or Plasma [facility] Erythrocyte sedimentation rate [facility] Estrogen [Mass/volum e] in Serum or Plasma [facility] [facility] Folate [Moles/volume ] in Serum or Plasma [facility] Follitropin and Lutr opin panel [Units/volume] - Serum or Plasma [facility] Gastrin [Mass/volume ] in Serum or Plasma [facility] MG Breast - bilatera l Diagnostic [facility] Patient referral [facility] Services Work Phone: Procedure [facility] Rheumatoid factor [Presence] in Serum [facility] Rheumatoid factor [Presence] in Serum [facility] Serum progesterone measurement [facility] Testosterone measurement [facility] US Breast limited [facility] Vitamin D, 1,25-dihydroxy measurement [facility] Immunizations Immunization Date Immunization Notes Care Provider Fa [facility] 07-24-2021 Julian SARS-CoV-2 Vaccination Mariana Braxton CONFIGURATION CONSULTANT - ELECTRICAL AND INSTRUMENT ENGINEER Work Phone: [facility] 07-01-2021 influenza virus vaccine, unspecified formulation Marianamagaly Acuña CONFIGURATION CONSULTANT - ELECTRICAL AND INSTRUMENT ENGINEER Work Phone: [facility] 06-27-2018 influenza, injectabl e, quadrivalent, preservative free Dr. Mark Shabazz MD Work Phone: [facility] 06-27-2018 influenza, seasonal, injectable [facility] Work Phone: 08-23-2016 tetanus toxoid, reduced diphtheria toxoid, and acellular pertussis vaccine, adsorbed ELIAN NESBITT MD [facility] Payers Date Payer Category Payer Self-pay [id number] 2024 Commercial Managed C are - HMO [id number] 2024 Private Health Insurance [place] [id number] 2024-Present [phone] [address] [address] [place]ETH [place] [address] Commercial [id number]. [id number] 2024 Private Health Insurance [id number] 2023 Unknown [id number] 2021 Unknown [employer] [place] [id number] 2021-Present [address] [place] [address] Commercial [id number]. [id number] 2021 Unknown [id number] 2016 Unknown [id number] 1981 Unknown [id number] 2.16.840.1.023549.3.579.2 1981 Unknown [id number] 2.16840.1.679069.3.579.2 1981 Unknown [id number] 2.16840.1.530428.3.579.2 1981 Unknown [id number] 2.16840.1.937727.3.579.2 1981 Unknown [id number] 2.16840.1.301305.3.579.2 1981 Unknown [id number] 2.16840.1.572785.3.579.2. 1981 Unknown [id number] 2.16840.1.415470.3.579.2. 1981 Unknown [id number] 2.16.840.1.667875.3.579.2. 1981 Unknown [id number] 2.16840.1.186400.3.579.2 1981 Unknown [id number] 2.16.840.1.025640.3.579.2. 1981 Unknown [id number] 2.16840.1.281782.3.579.2. 627 1981 Unknown [id number] 2.16.840.1.454112.3.579.2. 627 Unknown [facility] [id number] Unknown [id number] 2.16.840.1.443492.3.579.2. 462 Unknown [id number] 2.16.840.1.349878.3.579.2. 462 Unknown [id number] 2.16.840.1.230396.3.579.2. 462 Unknown [id number] 2.16.840.1.527764.3.579.2. 462 Unknown [id number] 2.16.840.1.442511.3.579.2. 462 Unknown [id number] 2.16.840.1.750329.3.579.2. 462 Unknown [id number] 2.16.840.1.485979.3.579.2. 462 Unknown [id number] 2.16.840.1.030998.3.579.2. 462 Unknown [id number] 2.16.840.1.032289.3.579.2. 462 Unknown [id number] 2.16.840.1.129933.3.579.2. 462 Unknown [id number] 2.16.840.1.011308.3.579.2. 462 Unknown [id number] 2.16.840.1.322634.3.579.2. 462 Unknown [id number] 2.16.840.1.990551.3.579.2. 462 Unknown [id number] 2.16.840.1.373661.3.579.2. 462 Unknown [id number] 2.16.840.1.439234.3.579.2. 462 Unknown [id number] 2.16.840.1.750284.3.579.2. 462 Unknown [id number] 2.16.840.1.394870.3.579.2. 462 Unknown [id number] 2.16.840.1.337618.3.579.2. 462 Unknown [id number] 2.16.840.1.994312.3.579.2. 462 Unknown [id number] 2.16.840.1.907705.3.579.2. 462 Unknown [id number] 2.16.840.1.864971.3.579.2. 462 Unknown [id number] 2.16.840.1.758981.3.579.2. 462 Unknown [id number] 2.16.840.1.267025.3.579.2. 462 Unknown [id number] 2.16.840.1.685092.3.579.2. 462 Unknown [id number] 2.16.840.1.613848.3.579.2. 462 Social History Date Type Detail Facility Start: 06-27-2020 Tobacco smoking status SDIS Unknown if ever smoked [facility] Work Phone: Start: 1980 Sex Assigned At Female [facility] Start: 01-08-2020 End: 01-10-2025 Tobacco smoking status Never smoked tobacco (finding) [facility] Start: 11-04-2022 End: 03-31-2023 Alcohol intake Current drinker of alcohol (finding) [facility] Start: 11-04-2022 End: 12-12-2024 History of Social function [facility] Start: 11-04-2022 End: 12-12-2024 Tobacco use panel [facility] Start: 1980 Sex Assigned At Not on file [facility] Start: 10-25-2022 End: 05-17-2023 Exposure to SARS-CoV-2 (event) Not sure [facility] Start: 05-17-2023 End: 12-12-2024 Alcohol intake Ex-drinker (finding) [facility] Start: 03-23-2022 End: 12-01-2024 Sex Female (finding) [facility] NEGATED: Highlighted row Not Winter [facility] Medical Equipment Procedure Code Equipment Code Equipment Origin al Text Equipment Identifier Dates Excisional biopsy of mass of breast with needle localization SUTURE,LIGA CLIP MED [id number] FDA Start: 01-19-2025 Excisional biopsy of mass of breast with needle localization SUTURE,LIGA CLIP SM LT-100 FDA Start: 01-19-2025 Excisional biopsy of mass of breast with needle localization SUTURE,LIGA CLIP MED [id number] FDA Start: 01-19-2025 Excisional biopsy of mass of breast with needle localization SUTURE,LIGA CLIP SM LT-100 FDA Start: 01-19-2025 Excisional biopsy of mass of breast with needle localization SUTURE,LIGA CLIP MED [id number] FDA Start: 01-19-2025 Excisional biopsy of mass of breast with needle localization SUTURE,LIGA CLIP SM LT-100 FDA Start: 01-19-2025 Excisional biopsy of mass of breast with needle localization SUTURE,LIGA CLIP MED [id number] FDA Start: 01-19-2025 Excisional biopsy of mass of breast with needle localization SUTURE,LIGA CLIP SM LT-100 FDA Start: 01-19-2025 Excisional biopsy of mass of breast with needle localization SUTURE,LIGA CLIP MED [id number] FDA Start: 01-19-2025 Excisional biopsy of mass of breast with needle localization SUTURE,LIGA CLIP SM LT-100 FDA Start: 01-19-2025 RELOAD,STANDARD 45 [id number] ETH FDA Start: 03-27-2019 RELOAD,STANDARD 45 [id number] ETH FDA Start: 03-27-2019 RELOAD,STANDARD 45 [id number] ETH FDA Start: 03-27-2019 RELOAD,STANDARD 45 [id number] ETH FDA Start: 03-27-2019 RELOAD,STANDARD 45 [id number] ETH FDA Start: 03-27-2019 RELOAD,STANDARD 45 [id number] ETH FDA Start: 03-27-2019 RELOAD,STANDARD 45 [id number] ETH FDA Start: 03-27-2019 RELOAD,STANDARD 45 [id number] ETH FDA Start: 03-27-2019 RELOAD,STANDARD 45 [id number] ETH FDA Start: 03-27-2019 RELOAD,STANDARD 45 [id number] ETH FDA Start: 03-27-2019 RELOAD,STANDARD 45 [id number] ETH FDA Start: 03-27-2019 RELOAD,STANDARD 45 [id number] ETH FDA Start: 03-27-2019 Goals Date Patient Goal Desired Activity /State Functional Status Date Assessment Result Facility 10-13-2023 Functional Status Awake, Up to bathroom [facility] 10-13-2023 Functional Status Sugar [facility]es[facility] 10-13-2023 Functional Status Maintained [facility] 10-05-2023 [facility] Date Assessment Result Facility 01-19-2025 Cognitive function Voice/Name [facility] Work Phone: 01-03-2025 Cognitive function Voice/Name [facility] Work Phone: 10-13-2023 Mental Status Oriented x 4 [facility] 10-13-2023 Mental Status [facility] 10-13-2023 Mental Status Orientation Asse ssment Oriented x 4 [facility] Clinical Notes 11-04-2022 to 02-06-2025 Mariana Acuña APRN [facility] - 01/23/2025 10:00 AM EDT Note Date & Type Note Facility 02-06-2025 Nuclear medicine Diagnostic study note [facility] Imaging Services [address] [place], [place] [id number] Hepatobilliary Img w/Pharm Int MR#: [id number] Acct: [id number] Name: MICHELLE CARLIN Rep #: [id number] : 1980 F 44 From: Geo Gongora MD PCP: Dr. Mark Shabazz MD Status: REG CLI Study:Hepatobilliary Img w/Pharm Int Date of Exam: 02/06/25 Exam# [id number] Ordering Dr: Remington Toscano DO PROCEDURE: HEPATOBILLIARY IMG W/PHARM INT 02/06/2025 REASON FOR EXAM: GALLSTONES TECHNIQUE: Intravenous Choletec with planar imaging of the abdomen. 1.1 mcg Kinevac intravenously approximately minutes after the radiopharmaceutical with additional anterior imaging and a region of interest drawn around the gallbladder to calculate a time-activity curve. RADIOPHARMACEUTICAL: Mebrofenin DOSE 5.4mCi COMPARISON: None FINDINGS: There is good uptake of the radiopharmaceutical by the liver. Normal gallbladder visualization with the gallbladder identified by 30 minutes. Gallbladder Ejection Fraction: 55 % (Normal is >35%) NM/Hepatobilliary Img w/Pharm Int IMPRESSION: Normal gallbladder ejection fraction. Reading Location: [place] [address] CC: Dr. Mark Shabazz MD; Unruly Friend, DO ~ Tabulating Supervisor: Signed [facility] 01-23-2025 History of Present illness Narrative [facility] Primary Care Physician: Mark Shabazz Chief Complaint: Chief Complaint Patient presents with Procedure Main Diagnosis: Diagnosis Plan 1. Intractable chronic migraine without aura and without status migrainosus 2. Myofascial pain History: given by the patient and EMR. EMR was personally reviewed prior to today's visit and included review of prior notes and intermediate communications. HPI: Ms. Michelle Carlin is a 44 y.o. female who is seen in the NEUROLOGY CLINIC of [facility] for migraines. Patient states she has suffered migraines since 2006. Patient has been on fioricet for abortive which worked for awhile but unfortunately no longer is as effective. Patient states her headaches are frontal/temporal, bilateral. She describes her pain as a dull pain. She has associated symptoms of photophobia, phonophobia, visual aura, nausea, and dizziness. Patient complains of having headaches 6 out of 10 days with 60 % of the headaches evolving into a migraine. Patient is positive for thyroid disease. She has family history of migraines with her Mother. Other family history: Cancer, diabetes, and hypertension. Patient is a non-smoker and drinks alcohol occasionally. The last visit was 12/12/2024 with this provider where the patient received Botox injections for the prevention of migraine pain. Headache characteristics: Description of pain: throbbing pain, bilateral in the frontal area, bilateral in the temporal area. Duration of individual headaches: 4-36 hour(s), frequency weekly. Associated symptoms: aura, light sensitivity, nausea, visual disturbance, and sound sensitivity. Pain relief: prescription medications - triptan therapy. Precipitating factors: stress and weather changes. INTERVAL HISTORY: Today, the patient returns for follow up of migraine control on current medication regimen. The patient reports increased neck and shoulder myofascial pain which she feels is resolved with TPI. The patient would like to receive TPI again today. TPI provided as documented below. The patient uses fioricet and ketorolac for treatment of migraine pain. Patient denies any side effects from medications and no new neurological deficits. Current migraine Meds: Botox Fioricet Nurtec Side effects: No known side effects Previous medication trials: Imitrex Maxalt Emgality Phenergan Benedryl Topamax Ubrelvy Amitriptyline Nortriptyline Past Medical History: Diagnosis Date ADHD (attention deficit hyperactivity disorder) Anxiety Cluster headache Headache Headache, tension-type Migraine Numbness Trigeminal neuralgia Vision loss Past Surgical History: Procedure Laterality Date COLPOSCOPY 2014 HYSTEROSCOPY 2015 plus D&C OOPHORECTOMY Left 2009 OVARIAN CYST SURGERY Right 2013 Allergies Allergen Reactions Amoxicillin-Pot Clavulanate Other reaction(s): Hives and/or rash Hydrocodone-Acetaminophen Nausea And Vomiting Other reaction(s): Severe nausea & vomiting, Vomiting Shellfish-Derived Products Tramadol Hallucinations @HOMEMEDS@ Current Outpatient Medications Medication Sig Dispense Refill ALPRAZolam (Xanax) 0.5 MG tablet ttkbecnavl-azpoxpqculmuv-aygnplqa 50-325-40 MG tablet Take 1 tablet by mouth every 4 hours as needed for headaches or migraine. cholecalciferol (Vitamin D-3) 50 MCG (2000 UT) capsule Take by mouth. diphenhydrAMINE (Benadryl Allergy) 25 MG capsule Take 50 mg by mouth. estradiol (Estrace) 2 MG tablet Take 2 mg by mouth daily. ketorolac (Toradol) 60 MG/2ML solution Inject 2 mL (60 mg) into the shoulder, thigh, or buttocks every 6 hours as needed (Migraine pain). Do not exceed 5 doses in one week or 10 doses in one month. 20 mL 3 levothyroxine (Synthroid, Levoxyl) 50 MCG tablet Take 50 mcg by mouth daily. lisdexamfetamine (Vyvanse) 30 MG capsule Take 30 mg by mouth every morning. onabotulinumtoxinA (Botox) 200 units injection Provider to inject 200 units intramuscularly every 12 weeks for migraine prevention. 1 each 3 ondansetron ODT (Zofran-ODT) 4 MG disintegrating tablet dissolve 1 tablet under the tongue every 8 hours if needed for nausea OR vomiting Strength: 4 mg 60 tablet 5 Syringe 25G X 1 3 ML misc 1 Syringe Once as needed (Migraine) for up to 1 dose. 20 each 3 therapeutic multivitamin-minerals (Theragran-M) tablet Take 1 tablet by mouth daily. tiZANidine (Zanaflex) 4 MG tablet Take 1 tablet (4 mg) by mouth every 8 hours as needed for muscle spasms. 0 Refill(s) 90 tablet 1 Current Facility-Administered Medications Medication Dose Route Frequency Provider Last Rate Last Admin lidocaine (Xylocaine) 1 % injection 9 mL 9 mL IntraDERmal Once Mariana Acuña APRN - SUDHAKAR lidocaine (Xylocaine) 1 % injection 9 mL 9 mL IntraDERmal Once Mariana Acuña, CONFIGURATION CONSULTANT - SUDHAKAR triamcinolone acetonide (Kenalog) injection 10 mg 10 mg IntraMUSCular Once Mariana Domenico, CONFIGURATION CONSULTANT - ELECTRICAL AND INSTRUMENT ENGINEER triamcinolone acetonide (Kenalog) injection 10 mg 10 mg IntraMUSCular Once Mariana Acuña, CONFIGURATION CONSULTANT - ELECTRICAL AND INSTRUMENT ENGINEER Family History Problem Relation Name Age of Onset High Blood Pressure Mother Sara Other ([id number]) Mother Sara fibromyalgia, anxiety issues Cancer Mother Sara thyroid Diabetes Mother Sara ADD / ADHD Mother Sara Anxiety disorder Mother Sara Depression Mother Sara Fibromyalgia Mother Sara Migraines Mother Sara Neuropathy Mother Sara High Blood Pressure Father Cancer Other great Mat grandma pancreatic Cancer Paternal Grandmother breast and ovarian Cancer Other 2n cousin-paternal breast Cancer Mother's Sister breast Cancer Father's Sister skin Parkinsonism Paternal Grandfather Adam Social Connections: Not on file REVIEW OF SYSTEMS: Review of Systems Constitutional: Positive for appetite change. Negative for activity change and chills. HENT: Positive for sinus pressure. Negative for ear pain, facial swelling, mouth sores, rhinorrhea, sinus pain and tinnitus. Eyes: Positive for visual disturbance. Negative for photophobia and pain. Respiratory: Negative for cough and chest tightness. Gastrointestinal: Positive for nausea. Negative for abdominal pain and vomiting. Endocrine: Negative for cold intolerance and heat intolerance. Genitourinary: Negative for difficulty urinating. Musculoskeletal: Positive for back pain, neck pain and neck stiffness. Allergic/Immunologic: Positive for environmental allergies. Negative for food allergies. Neurological: Positive for numbness and headaches. Negative for dizziness, tremors, syncope, speech difficulty and weakness. Hematological: Does not bruise/bleed easily. Psychiatric/Behavioral: Negative for confusion, decreased concentration and hallucinations. The patient is not nervous/anxious. All other systems reviewed and are negative. PHYSICAL EXAM: BP 131/72 Pulse 85 Temp 36.8 C (98.2 F) Wt 119 lb 6.4 oz (54.2 kg) BMI 20.49 kg/m Physical Exam Vitals and nursing note reviewed. Constitutional: Appearance: Normal appearance. She is normal weight. HENT: Head: Normocephalic. Nose: Nose normal. Eyes: Extraocular Movements: Extraocular movements intact. Conjunctiva/sclera: Conjunctivae normal. Pupils: Pupils are equal, round, and reactive to light. Pulmonary: Effort: Pulmonary effort is normal. Musculoskeletal: General: Normal range of motion. Cervical back: Normal range of motion. Skin: General: Skin is warm and dry. Neurological: General: No focal deficit present. Mental Status: She is alert and oriented to person, place, and time. Mental status is at baseline. Psychiatric: Mood and Affect: Mood normal. Behavior: Behavior normal. Thought Content: Thought content normal. Judgment: Judgment normal. Neuro: Alert and oriented x4. Language: fluent and prosodic. Content and vocabulary reasonable for age and education level. Attention and Concentration intact Fund of knowledge: Knowledge of current events demonstrated. CN II: PERRLA CN III, IV, : EOM intact, no end-gaze nystagmus CN VII: smiling and tight eye closure symmetric CN VIII: grossly intact Gait: routine gait steady ASSESSMENT: 44 y.o. female with past medical history as above who presents for follow up evaluation of migraine with improvement on current medication regimen. IMPRESSION: Diagnosis Plan 1. Intractable chronic migraine without aura and without status migrainosus 2. Myofascial pain PLAN: 1. TPI provided as documented below. 2. Prescription refills for Fioricet sent as requested. 3. Patient will follow up in about 6 weeks for Botox injections, sooner if needed. I hope that all of your questions and concerns were addressed during today's visit. Please don't hesitate to call the Department of Neurology at [phone] for any further concerns. Sincerely, CLEVELAND Lara CNP The above diagnosis and management plan were discussed at length with the patient who voiced understanding and agreed. Electronically signed by: CLEVELAND Lara CNP 01/23/2025 10:13 AM Procedure: Trigger point injections into posterior cervical muscles. With the patient is sitting position patient received trigger point injection into the posterior cervical, shoulder muscles. The injections were performed with 9 mL's of 1% lidocaine and trace of Kenalog. Patient injections were performed as follows: 1. Right trapezius 3 trigger point injections. 2. Left trapezius 3 trigger point injections. 3. Right splenius capitis 1 trigger point injection 4. Left splenius capitis 1 injection. 5. Right levator scapula 1 injection 6. Left levator scapula 1 injection Patient received TPI for a diagnosis of myofascial pain. The patient reports improvement of at least 60% after receiving TPI today. CLEVELAND Lara CNP 01/23/25 documented in this encounter [facility] 01-19-2025 Consult note Note Date/Time January 19, 2025 11:12am [facility] Medical Records Department [address] [place] [id number] Pre-Anesthesia Evaluation 01/19/25 1107 MR#: [id number] Acct: [id number] Name: MICHELLE CARLIN Rep #:[id number] : 1980 44 From: Sandra ZUNIGA PCP: Dr. Mark Shabazz MD Status :REG [facility] [place] Race: C Location: [place] [address] ASA Classification* ASA Classification ASA Classification: 2 Assessment & Plan Anesthesia* Anesthesia Assessment Anesthesia Assessment: Discussed sedation and/or anesthesia options, risks, benefits, and alternatives with patient/parents/legal guardian/POA. Questions invited. The patient/parents/legal guardian/POA seems to understand and agrees to proceedwith anesthesia plan. Reviewed the physical assessment, medical history, allergy history and patient home medications list prior to surgery/procedure/anesthetic and documented any changes. Performed airway and anesthesia risk assessments. Anesthesia Type Anesthesia Type: General History Source History Obtained from:: Patient and Chart Anesthesia Focused Assessment* Temperature: 99.4 F Pulse Rate: 67 Blood Pressure: 109/80 Respiratory Rate: 16 Pulse Ox: 100 Oxygen Delivery Method: Room Air Airway Assessment Mouth opens: >3 cm Mallampati Score: I Teeth Condition: Caps/Crowns Comment: Porcelain veneers Focused Labs Anesthesia Preop lab: CBC WBC 4.6 K/mm3 (4.4-11.0) 06/05/24 08:10 06/05/24 RBC 4.90 M/mm3 (4.2-5.4) 06/05/24 08:10 06/05/24 Hgb 13.9 g/dL (12.0-15.0) 06/05/24 08:10 06/05/24 Hct 43.8 % (37-47) 06/05/24 08:10 06/05/24 Plt Count 229 K/mm3 (150-450) 06/05/24 08:10 06/05/24 CHEMISTRY Potassium 4.2 mmol/L (3.5-5.1) 06/05/24 08:12 06/05/24 Sodium 139 mmol/L (136-145) 06/05/24 08:12 06/05/24 Phosphorus 2.9 mg/dL (2.5-4.9) 06/05/24 08:10 06/05/24 BUN 9 mg/dL (7-18) 06/05/24 08:12 06/05/24 Creatinine 0.70 mg/dL (0.55-1.02) 06/05/24 08:12 06/05/24 Glucose 86 mg/dL (74-106) 06/05/24 08:12 06/05/24 TSH 1.240 uIU/mL (0.358-3.740) 06/05/24 08:12 05/23 12/14 COAG PT 13.8 SECONDS (11.7-14.9) 03/27/19 09:26 HCG, Quant < 1 mIU/mL (<9 non-preg) 06/29/17 16:23 Urine Test Negative Negative 03/27/19 09:08 03/27/19 Pre-Assessment Diagnosis/Proposed Procedure Planned Operative Procedure(s): LEFT BREAST U/S WIRE LOCALIZATION EXCISIONAL BIOPSY Anesthesia History 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 When Was Last Pacemaker Check QUESTION #4 FULL TEXT: You/Your Family Experience fever (hyperthermia) with Anesthesia Last Oral Intake Last Oral intake: Last Oral Intake NPO since 07:00 01/19/25 10:57 Meds taken in AM with sips of No 01/19/25 10:57 water? Meds patient instructed to take am of surgery PONV PONV - certified fraud examiner: PONV - certified fraud examiner Female Yes 01/10/25 11:26 HX of Motion Sickness Yes 01/10/25 11:26 HX of N/V After Surgery No 01/10/25 11:26 Non-Smoker Yes 01/10/25 11:26 Duration of Surgery greater No 01/10/25 11:26 than 60 minutes Number of Risk Factors 3 01/10/25 11:26 PONV Score Moderate Risk 01/10/25 11:26 Height & Weight Height & Weight: Anesthesia: Height & Weight Height 5 ft 4 in 01/19/25 10:57 Weight: 54 kg 01/19/25 10:57 Body Mass Index (BMI) 20.4 01/19/25 10:57 Respiratory Assessment Respiratory Assessment - certified fraud examiner: Respiratory Tract Infection Hx - certified fraud examiner Hx Respiratory Tract Infection No 01/10/25 11:26 STOP Sleep Apnea STOP Sleep Apnea - certified fraud examiner: STOP Sleep Apnea - certified fraud examiner Hx Hypertension No 01/10/25 11:26 Hx Sleep Apnea No 01/10/25 11:26 CPAP No 06/13/24 15:40 BIPAP No 03/20/19 11:18 Do you snore loudly (louder No 01/10/25 11:26 than talking or can be heard Do you often feel tired/ Yes 01/10/25 11:26 fatigued/ sleepy during daytime? Has anyone observed you stop No 01/10/25 11:26 breathing during sleep? STOP Results Negative 01/10/25 11:26 QUESTION #5 FULL TEXT : Do you snore loudly (louder than talking or can be heard through closed doors)? 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 Specify any problems Hx of Preganancy in last 3 No 01/10/25 11:26 Months Nurse Filling Out Transfusion DSCHRIBER 01/10/25 11:26 & Questions: Date: 01/10/25 01/10/25 11:26 Time: 11:27 01/10/25 11:26 Patient unable to answer at this time (ie. confused, unrespo /Reproduction History /Reproductive History - certified fraud examiner: /Reproductive Hx- certified fraud examiner Hx Now No 01/10/25 11:26 Gestational Age (in weeks): EDC: Hx Hx Para Hx Section SAB No 01/10/25 11:26 Active Medications Active Medications: Current Medications Generic Name Dose Route Start Last Admin Trade Name Freq PRN Reason Stop Dose Admin Cefazolin Sodium 2 gm/ Sodium 110 mls @ 150 mls/hr 01/19/25 12:30 Chloride IV 01/19/25 13:13 INTRAOP ONE Lactated Ringer's 1,000 mls @ 15 mls/hr 01/19/25 10:30 01/19/25 11:00 IV 15 mls/hr .Q48H CHACORTA Administration PFSH Medical History Depression Anxiety Injury of head and neck History of hiatal hernia History of IBS History of diverticulitis Nausea Non-smoker History of TIA (transient ischemic attack) History of cervical dysplasia Peritonitis Back pain Thyroid disease Chest pain Migraines Hay fever Fatigue Home Medications ?Medication ?Instructions ?Recorded ?Last Taken ?Type multivitamin 1 cap PO DAILY 04/22/18 Unkn own History cholecalciferol (vitamin D3) 50 50 mcg PO QDAY 4 Unknown History mcg (2,000 unit) capsule estradiol 2 mg tablet 2 mg PO QDAY 05/16/24 Unknow n History levothyroxine 50 mcg tablet 50 mcg PO QDAY 05/16/24 Un known History lisdexamfetamine 30 mg capsule 30 mg PO QAM 05/16/24 U nknown History (Vyvanse) tizanidine 4 mg capsule 4 mg PO QHS 05/16/24 Unknown History sabvcefnvs-qahltbkisbfdk-txnthsyx 1 tab PO QHS Headach e 06/12/24 Unknown History 50 mg-325 mg-40 mg tablet diphenhydramine HCl 25 mg capsule 25 mg PO QHS 5 Unknown History (Benadryl) magnesium 100 mg tablet 1,140 mg PO DAILY 01/10/25 U nknown History Allergy/AdvReac Type Severity Reaction Status Date / Time suture Allergy Mild pus Verified 01/19/25 10:56 tramadol (From Ultram) AdvReac Intermediate hallucinati Verified 01/19/25 10:56 ons shellfish derived AdvReac Mild Hives Verified 01/19/25 10:56 hydrocodone bitartrate (From AdvReac Vomiting Verified 01/19/25 10:56 Vicodin) Family History Daughter Asthma Father Hypertension Mother Hypertension Thyroid disorder Diabetes Grandmother Breast cancer Cancer omentum Osteoporosis Aunt Breast cancer Aunt Breast cancer Surgical History History of esophagogastroduodenoscopy (EGD) Hx of resection of rectum History of hysterectomy History of appendectomy History of colonoscopy (~2008) History of dilation and curettage (~2014) History of bilateral breast reduction surgery (~2017) History of loop electrical excision procedure (LEEP) (~2013) History of ovarian cystectomy H/O oophorectomy Social History household members: spouse current occupational status: employed current occupation: [employer] Smoking Status: Never smoker alcohol intake: never substance use type: does not use seatbelt use: always do you feel safe at home: Yes additional social history: - Rashard Review of Systems (Anesthesia) ROS Narrative System reviewed and no additional complaints, except as documented. 01/19/25 1112 <Electronically signed by Sandra Rowley CRNA> Date _ Sandra Rowley CRNA Cosigner Signature: Date CC: ~ Signed [facility] Work Phone: 1(538) 871-737105-30-2025 History and physical note Author Diann [facility] Note Date/Time January 19, 2025 10:[address] [facility] Medical Records Department [address] [place] [id number] History & Physical Exam 01/19/25 1001 MR#: [id number] Acct: [id number] Name: MICHELLE CARLIN ANN Rep #:[id number] : 1980 44 From: Diann Perez MD PCP: Dr. Mark Shabazz MD Status :[facility] Location: [place] [address] History and Physical Date of Admission: 01/19/25 Date of Service: 12/25/24 MR#: [id number] Acct: [id number] Name: MICHELLE CARLIN ANN Rep #: [id number] : 1980 Provider: Dr. Diann Perez MD Age/Sex: 44/F Location: [facility] Status: Signed Intake Vital Signs 11/22/2508:46 12/25/2514:07 Height 5 ft 4 in 5 ft 4 in Weight: 124 lb 120 lb BMI 21.2 20.5 BP 124/86 H 110/68 Blood Pressure Location Rt brachial Rt brachial Position Sitting Sitting Respiration 17 17 Pulse 71 64 Pulse Source Monitor Monitor Pulse Oximetry (%) 100 99 Oxygen Delivery Method room air room air Intake Visit Reasons: DISCUSS MRI RESULTS & OPTIONS Chief Complaint: discuss MRI results/ options Is patient in pain?: No Allergies suture Allergy (Mild, Verified 12/25/24 15:08) pustramadol (From Ultram) Adverse Reaction (Intermediate, Verified 12/25/24 15:08) hallucinationsshellfish derived Adverse Reaction (Mild, Verified 12/25/24 15:08) Hiveshydrocodone bitartrate (From Vicodin) Adverse Reaction (Verified 12/25/24 15:08) Vomiting Medications ?Medication ?Instructions ?Recorded ?Confirmed ?Type multivitamin 1 cap PO DAILY 04/22/18 12/25/24 History alprazolam 0.25 mg tablet (Xanax) 0.5 mg PO BID-TID PRN Anxiety 06/06/20 12/25/24 History cholecalciferol (vitamin D3) 50 50 mcg PO QDAY 05/16/24 12/25/24 History mcg (2,000 unit) capsule estradiol 2 mg tablet 2 mg PO QDAY 05/16/24 12/25/24 History levothyroxine 50 mcg tablet 50 mcg PO QDAY 05/16/24 12/25/24 History lisdexamfetamine 30 mg capsule 30 mg PO QAM 05/16/24 12/25/24 History (Vyvanse) tizanidine 4 mg capsule 4 mg PO QHS 05/16/24 12/25/24 History xoyunhophi-ajyciszmgzixa-prxubwdf 1 tab PO QHS Headache 06/12/24 12/25/24 History 50 mg-325 mg-40 mg tablet diphenhydramine HCl 25 mg capsule 25 mg PO QHS 12/25/24 12/25/24 History (Benadryl) [facility] Medical History Depression Anxiety Injury of head and neck History of hiatal hernia History of IBS History of diverticulitis Nausea Non-smoker Anxiety and depression History of TIA (transient ischemic attack) History of cervical dysplasia Peritonitis Back pain Thyroid disease Chest pain Migraines Hay fever Fatigue Surgical History Hx of resection of rectum History of hysterectomy History of appendectomy History of colonoscopy (~2008) History of dilation and curettage (~2014) History of bilateral breast reduction surgery (~2017) History of loop electrical excision procedure (LEEP) (~2013) History of ovarian cystectomy H/O oophorectomy Family History Daughter AsthmaFather HypertensionMother Hypertension Thyroid disorder DiabetesGrandmother Breast cancer Cancer omentum OsteoporosisAunt Breast cancerAunt Breast cancer Social History household members: spouse current occupational status: employed current occupation: [employer] [place] Smoking Status: Never smoker alcohol intake: never substance use type: does not use seatbelt use: always do you feel safe at home: Yes additional social history: - Rashard HPI HPI HPI: 44-year-old female came in for follow-up after breast MRI as well as left breastlump. Patient's MRI was given a BI-RADS 1 negative. Did review with her and her . Patient still states she feels this area about 12:00 2 to 3 cm from the nipple about pea-sized. ROS General General: Yes weight change and fatigue; No appetite, colon cancer or breast cancer HEENT HEENT: Yes difficulty swallowing; No eye injury, eye surgery, swollen glands or hoarseness Endo Endocrine: Yes thyroid disease; No diabetes mellitus, thyroid cancer, Hair loss, heat intolerance or cold intolerance Skin Skin: No rash or changing moles Breast Breast: Yes left breast lump; No right breast lump, nipple discharge, breast pain, abnormal mammogram, abnormal US or breast enlargement Musc Musculoskeletal: Yes back problems; No arthritis, rheumatoid arthritis, gout or joint pain Cardio Cardiovascular: No murmur, pacemaker, heart disease, atrial fibrillation, high blood pressure, heart attack, heart stent, palpitations, shortness of breath with exertion or chest pain Psych Psychiatric: No depression, anxiety or hearing voices Resp Respiratory: No shortness of breath, No sleep apnea, No cough, No COPD, No asthma, No emphysema and No wheezing Gastro Gastrointestinal: Yes abdominal pain, Yes nausea or vomiting, Yes diarrhea, No constipation, No blood in stool, Yes acid reflux, No hemorrhoids, Yes ulcers, Yes gallbladder problem and No black,tarry stools Byron Hematologic: No blood thinners, No blood disorders, No bleeding, No anemia and No blood clots Neuro Neurologic: Yes numbness and Yes tingling Exam Const General: cooperative, healthy appearing and no acute distress [facility] Head: normal to inspection Chest Other: Breast inspection: Symmetric bilaterally-bilateral breast reduction incisions well-healed Right breast: Fibroglandular tissue, no masses on exam, no nipple discharge or pain, no change in overlying skin Left breast: Fibroglandular tissue, palpable nodule at 12:00 2 to 3 cm from the nipple, no nipple discharge or pain, no change in overlying skin No axillary or supraclavicular adenopathy bilaterally Resp Effort & Inspection: normal respiratory effort Cardio Rate: regular rate GI Inspection: non-distended Palpation: soft Skin General: no rashes or lesions noted Neuro General: patient oriented x3 Extrem General: no clubbing, cyanosis or edema Psych Affect: normal affect Assessment and Plan Assessment and Plan (1) Left breast mass: Status: Acute Qualifiers: Breast mass location: upper outer quadrant Qualified Code(s): N63.21 - Unspecified lump in the left breast, upper outer quadrant Comment: imaging (2) Family history of breast cancer: Status: Acute Comment: MGM and 2 aunts. Empower test negative. Overall risk 28%:enc yearly mammogram and breast MRI alternating (3) At high risk for breast cancer: Status: Acute Comment: 28.2% [facility] lifetime breast cancer risk Plan On exam I am able to feel the area of concern. I do believe would be able to ray ultrasound wire localization of this area and have it removed. On bedside ultrasound and kind to see an area but it is not easy to see-- not sure would beenough tissue to get a great answer with a percutaneous biopsy. Patient and herhusband are agreeable with ultrasound guided wire localization left excisional breast biopsy. Discussed procedure including but not limited to bleeding, infection, need for further surgery and cosmesis. Patient no further question this time. Diann Perez M.D. Pager: [phone] [facility] [address] [place] [address], [facility], [address] [place] [address] Office: [phone] Coding Level of Care Code Off vis,est,level 4 Diagnoses Mass of upper outer quadrant of left breast N63.21 Breast mass location: upper outer quadrant Family history of breast cancer Z80.3 At high risk for breast cancer Z91.89 12/27/24 0853 <Electronically signed by Diann Perez MD> Date Diann Perez MD 01/19/25 1002 <Electronically signed by Diann Perez MD> Cosigner Signature (if applicable): CC: Dr. Mark Shabazz MD; Dr. Diann Perez MD~ Signed ADDENDUM by Dr. Diann Perez MD on 01/19/25 at 1052 Addendum I have examined the patient and the H&P has been reviewed. There are no clinicalchanges since date of exam. 01/19/25 1052<Electronically signed by Diann Perez MD> Cosigner Signature (if applicable): cc: Dr. Mark Shabazz MD; Dr. Diann Perez MD ~* Signed [facility] Work Phone: 1(462) 259-504205-30-2025 Consult note [facility] Medical Records Department [address] [place] [address] Anesthesia Postop Eval I 01/19/25 1229 MR#: [id number] Acct: [id number] Name: MICHELLE CARLIN ANN Rep #:[id number] : 1980 44 From: Sandra Richardson RNA PCP: Dr. Mark Shabazz MD Status :REG SDC Y Race: C Location: [place] [address] Anesthesia: Postop Eval I Current Vital Signs Temperature: 97.9 F Pulse Rate: 77 Blood Pressure: 121/72 Respiratory Rate: 16 Pulse Ox: 98 Oxygen Delivery Method: Room Air Assessment Airway patent: Yes Spontaneous unlabored respirations: Yes Mental status: Awake and Calm nausea: No Vomiting: No Anesthesia Complication: No Fluid Hydration Crystalloid volume administer (ml): 600 Total IV fluid infused: 600 Progress Note Anesthesia document: Postop Eval 1 completed: Yes 01/19/25 1231 ALIGNING CHECKER> Date _ Sandra Rowley ALIGNING CHECKER Cosigner Signature: Date CC: ~ Signed [facility]05-30-2025 Procedure note [facility] Medical Records Department [address] [place] [address] Operative Report 01/19/25 1204 MR#: [id number] Acct: [id number] Name: MICHELLE CARLIN Rep #:[id number] : 1980 44 From: Diann Perez MD PCP: Dr. Mark Shabazz MD Status :[facility] Location: [place] [address] Operative Report (Standard) Operative Information Date of Procedure: 01/19/25 Pre-Operative Diagnosis: Left breast mass 12:00 3 cm from the nipple Post-Operative Diagnosis: Same Surgery/Procedure Performed: Ultrasound wire needle localization excisional leftbreast biopsy cloth grader: Yes Osha Inspector: Parth Alexander Tasks completed by first aid director: Opening & closing and Retracting Type of Anesthesia: General/Supplemental RN Documented Start/Stop Times: Operation Date: 01/19/25 12:30 Case Time Into Pre-Op 01/19/25 10:28 Out of Pre-Op 01/19/25 11:19 Anesthesia Start 01/19/25 11:23 Into Room 01/19/25 11:23 Procedure Start 01/19/25 11:40 Procedure End 01/19/25 12:16 Anesthesia End 01/19/25 12:23 Out of Room 01/19/25 12:23 Into Recovery 01/19/25 12:25 Procedure Start Time: 11:40 Procedure Stop Time: 12:16 Select all DRAINS/GRAFTS/IMPLANTS that apply: None Special Medications: Ancef 2 g IV x 1 Estimated Blood Loss: 5 cc Specimen collected: Yes Description of specimen(s) removed: Left breast mass 12:00 3 cm from nipple Description of surgery: Patient was brought to operating placed spine operating table. Timeout was completed verifying correct patient, procedure, site, positioning, special, prior began procedure. General anesthesia was induced. Patient's left breast was prepped draped in a sterile fashion. Ultrasound guided needle localization with Kopan needle was completed with the wire just lateral tothe palpable mass. A curvilinear incision was planned in such a way as to minimize the amount of dissection to reach the mass. Flaps were raised in the location of the wire confirmed. The wire was deliveredinto the wound. 2 silk xpudyn-sm-buidr stay suture was placed around the wire and used for traction. Dissection was thentaken down circumferentially with electrocautery, taking care to include the entire localization needle and wide margin of grossly normal tissue. The specimen and entire localizing wire were removed. The specimen was orientedand sent to pathology. The cavity was irrigated. Hemostasis was obtained with electrocautery. The breast incision was closed with interrupted sutures of 3-0 Vicryl and subcuticular sutures of 4-0 Monocryl. No attempt wasmade to close the space. A dressing of fluff gauze and supportive bra placed. The patient tolerated procedure well was taken to the postanesthesia care in stable condition. Surgical Findings: See operative note Complications Complications: No 01/19/25 1231 Cosigner Signature (if applicable): CC: Dr. Mark Shabazz MD; Dr. Diann Perez MD~ Signed [facility]05-30-2025 Discharge summary [facility] Medical Records Department [address] [place] [address] Instructions for Home/Discharge Instructions 01/19/25 1207 MR#: [id number] Acct: [id number] Name: MICHELLE CARLIN Rep #:[id number] : 1980 44 From: Diann Perez MD PCP: Dr. Mark Shabazz MD Status [place] [facility] Discharge Instructions Diet Discharge Diet: No restrictions Activity Discharge Activity: May Not Drive (for 2-3 days or while taking narcotic pain meds.) May shower in (days): 1 Lifting Restrictions: 10 pounds for 1 week. Dressing / Incision Call your doctor if your incision/area has: Continuous Slow Oozing, Sudden Increased Bleeding, Increased Pain/ Swelling and Increased Redness Call your doctor if you observe: Fever of 101 or Higher Suture Line Care: Avoid Pulling/Pushing and Avoid Pinching/Bending Remove Dressing in: 1 day Additional Dressing/Incision Instructions:: Remove bulky dressing tomorrow. Mayleave op-site dressing for 3-4 days. Okay to remove Steri-Strips from the breast incision in 7 to 10 days. Follow Up Care Please Follow Up With: Diann Perez MD When: Please call [phone] for an appointment to be seen in 2 week. Test Results: Test results from this visit will be discussed in further detail at your follow- up appointment, if applicable. Discharge Plan Admission Attending Provider: Diann Perez Primary Care Provider: Mark Shabazz Instructions Print Language: Mongolian Discharge Orders/Prescriptions Prescriptions: New oxycodone 5 mg capsule 5 mg PO Q6H PRN (Reason: pain) 3 Days Qty: 5 0RF Continued multivitamin capsule 1 cap PO DAILY tizanidine 4 mg capsule 4 mg PO QHS lisdexamfetamine [Vyvanse] 30 mg capsule 30 mg PO QAM estradiol 2 mg tablet 2 mg PO QDAY levothyroxine 50 mcg tablet 50 mcg PO QDAY cholecalciferol (vitamin D3) 50 mcg (2,000 unit) capsule 50 mcg PO QDAY diphenhydramine HCl [Benadryl] 25 mg capsule 25 mg PO QHS magnesium 100 mg tablet 1,140 mg PO DAILY wvmugpjawu-ksfmhgbrstycm-nhio 1 TABLET tablet 1 tab PO QHS Referrals / Follow Up: Mark Shabazz MD [Primary Care Provider] - Disposition Disposition (needs filled in before D/C Order can be placed): Home, Self Care 01/19/25 1209Tajuan miguel Perez MD CC: Dr. Mark Shabazz MD ~ Signed [facility]05-30-2025 Consult note [facility] Medical Records Department [address] [place] [address] Pre-Anesthesia Evaluation 01/19/25 1107 MR#: [id number] Acct: [id number] Name: MICHELLE CARLIN ANN Rep #:[id number] : 1980 44 From: Sandra ZUNIGA PCP: Dr. Mark Shabazz MD Status :REG SDC Y Race: C Location: [place] [address]- ASA Classification* ASA Classification ASA Classification: 2 Assessment & Plan Anesthesia* Anesthesia Assessment Anesthesia Assessment: Discussed sedation and/or anesthesia options, risks, benefits, and alternatives with patient/parents/legal guardian/POA. Questions invited. The patient/parents/legal guardian/POA seems to understand and agrees to proceedwith anesthesia plan. Reviewed the physical assessment, medical history, allergy history and patient home medications list prior to surgery/procedure/anesthetic and documented any changes. Performed airway and anesthesia risk assessments. Anesthesia Type Anesthesia Type: General History Source History Obtained from:: Patient and Chart Anesthesia Focused Assessment* Temperature: 99.4 F Pulse Rate: 67 Blood Pressure: 109/80 Respiratory Rate: 16 Pulse Ox: 100 Oxygen Delivery Method: Room Air Airway Assessment Mouth opens: >3 cm Mallampati Score: I Teeth Condition: Caps/Crowns Comment: Porcelain veneers Focused Labs Anesthesia Preop lab: CBC WBC 4.6 K/mm3 (4.4-11.0) 06/05/24 08:10 06/05/24 RBC 4.90 M/mm3 (4.2-5.4) 06/05/24 08:10 06/05/24 Hgb 13.9 g/dL (12.0-15.0) 06/05/24 08:10 06/05/24 Hct 43.8 % (37-47) 06/05/24 08:10 06/05/24 Plt Count 229 K/mm3 (150-450) 06/05/24 08:10 06/05/24 CHEMISTRY Potassium 4.2 mmol/L (3.5-5.1) 06/05/24 08:12 06/05/24 Sodium 139 mmol/L (136-145) 06/05/24 08:12 06/05/24 Phosphorus 2.9 mg/dL (2.5-4.9) 06/05/24 08:10 06/05/24 BUN 9 mg/dL (7-18) 06/05/24 08:12 06/05/24 Creatinine 0.70 mg/dL (0.55-1.02) 06/05/24 08:12 06/05/24 Glucose 86 mg/dL (74-106) 06/05/24 08:12 06/05/24 TSH 1.240 uIU/mL (0.358-3.740) 06/05/24 08:12 05/23 12/14 COAG PT 13.8 SECONDS (11.7-14.9) 03/27/19 09:26 HCG, Quant < 1 mIU/mL (<9 non-preg) 06/29/17 16:23 Urine Test Negative Negative 03/27/19 09:08 03/27/19 Pre-Assessment Diagnosis/Proposed Procedure Planned Operative Procedure(s): LEFT BREAST U/S WIRE LOCALIZATION EXCISIONAL BIOPSY Anesthesia History 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 When Was Last Pacemaker Check QUESTION #4 FULL TEXT: You/Your Family Experience fever (hyperthermia) with Anesthesia Last Oral Intake Last Oral intake: Last Oral Intake NPO since 07:00 01/19/25 10:57 Meds taken in AM with sips of No 01/19/25 10:57 water? Meds patient instructed to take am of surgery PONV PONV - certified fraud examiner: PONV - certified fraud examiner Female Yes 01/10/25 11:26 HX of Motion Sickness Yes 01/10/25 11:26 HX of N/V After Surgery No 01/10/25 11:26 Non-Smoker Yes 01/10/25 11:26 Duration of Surgery greater No 01/10/25 11:26 than 60 minutes Number of Risk Factors 3 01/10/25 11:26 PONV Score Moderate Risk 01/10/25 11:26 Height & Weight Height & Weight: Anesthesia: Height & Weight Height 5 ft 4 in 01/19/25 10:57 Weight: 54 kg 01/19/25 10:57 Body Mass Index (BMI) 20.4 01/19/25 10:57 Respiratory Assessment Respiratory Assessment - certified fraud examiner: Respiratory Tract Infection Hx - certified fraud examiner Hx Respiratory Tract Infection No 01/10/25 11:26 STOP Sleep Apnea STOP Sleep Apnea - certified fraud examiner: STOP Sleep Apnea - certified fraud examiner Hx Hypertension No 01/10/25 11:26 Hx Sleep Apnea No 01/10/25 11:26 CPAP No 06/13/24 15:40 BIPAP No 03/20/19 11:18 Do you snore loudly (louder No 01/10/25 11:26 than talking or can be heard Do you often feel tired/ Yes 01/10/25 11:26 fatigued/ sleepy during daytime? Has anyone observed you stop No 01/10/25 11:26 breathing during sleep? STOP Results Negative 01/10/25 11:26 QUESTION #5 FULL TEXT : Do you snore loudly (louder than talking or can be heard through closeddoors)? 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 Specify any problems Hx of Preganancy in last 3 No 01/10/25 11:26 Months Nurse Filling Out Transfusion DSCHRIBER 01/10/25 11:26 & Questions: Date: 01/10/25 01/10/25 11:26 Time: 11:27 01/10/25 11:26 Patient unable to answer at this time (ie. confused, unrespo /Reproduction History /Reproductive History - certified fraud examiner: /Reproductive Hx- certified fraud examiner Hx Now No 01/10/25 11:26 Gestational Age (in weeks): EDC: Hx Hx Para Hx Section SAB No 01/10/25 11:26 Active Medications Active Medications: Current Medications Generic Name Dose Route Start Last Admin Trade Name Dineshq PRN Reason Stop Dose Admin Cefazolin Sodium 2 gm/ Sodium 110 mls @ 150 mls/hr 01/19/25 12:30 Chloride IV 01/19/25 13:13 INTRAOP ONE Lactated Ringer's 1,000 mls @ 15 mls/hr 01/19/25 10:30 01/19/25 11:00 IV 15 mls/hr .Q48H CHACORTA Administration PFSH Medical History Depression Anxiety Injury of head and neck History of hiatal hernia History of IBS History of diverticulitis Nausea Non-smoker History of TIA (transient ischemic attack) History of cervical dysplasia Peritonitis Back pain Thyroid disease Chest pain Migraines Hay fever Fatigue Home Medications ?Medication ?Instructions ?Recorded ?Last Taken ?Type multivitamin 1 cap PO DAILY 04/22/18 Unkn own History cholecalciferol (vitamin D3) 50 50 mcg PO QDAY 4 Unknown History mcg (2,000 unit) capsule estradiol 2 mg tablet 2 mg PO QDAY 05/16/24 Unknow n History levothyroxine 50 mcg tablet 50 mcg PO QDAY 05/16/24 Un known History lisdexamfetamine 30 mg capsule 30 mg PO QAM 05/16/24 U nknown History (Vyvanse) tizanidine 4 mg capsule 4 mg PO QHS 05/16/24 Unknown History pbkllnpvoc-hgvrgcakbhkrv-kuaoynnn 1 tab PO QHS Headach e 06/12/24 Unknown History 50 mg-325 mg-40 mg tablet diphenhydramine HCl 25 mg capsule 25 mg PO QHS 5 Unknown History (Benadryl) magnesium 100 mg tablet 1,140 mg PO DAILY 01/10/25 U nknown History Allergy/AdvReac Type Severity Reaction Status Date / Time suture Allergy Mild pus Verified 01/19/25 10:56 tramadol (From Ultram) AdvReac Intermediate hallucinati Verified 01/19/25 10:56 ons shellfish derived AdvReac Mild Hives Verified 01/19/25 10:56 hydrocodone bitartrate (From AdvReac Vomiting Verified 01/19/25 10:56 Vicodin) Family History Daughter Asthma Father Hypertension Mother Hypertension Thyroid disorder Diabetes Grandmother Breast cancer Cancer omentum Osteoporosis Aunt Breast cancer Aunt Breast cancer Surgical History History of esophagogastroduodenoscopy (EGD) Hx of resection of rectum History of hysterectomy History of appendectomy History of colonoscopy (~2008) History of dilation and curettage (~2014) History of bilateral breast reduction surgery (~2017) History of loop electrical excision procedure (LEEP) (~2013) History of ovarian cystectomy H/O oophorectomy Social History household members: spouse current occupational status: employed current occupation: [employer] [place] Smoking Status: Never smoker alcohol intake: never substance use type: does not use seatbelt use: always do you feel safe at home: Yes additional social history: - Rashard Review of Systems (Anesthesia) ROS Narrative System reviewed and no additional complaints, except as documented. 01/19/25 1112 ALIGNING CHECKER> Date _ Sandra Rowley CRNA Cosigner Signature: Date CC: ~ Signed [facility]05-30-2025 History and physical note [facility] Medical Records Department [address] [place] [address] History & Physical Exam 01/19/25 1001 MR#: [id number] Acct: [id number] Name: MICHELLE CARLIN Rep #:[id number] : 1980 44 From: Diann Perez MD PCP: Dr. Mark Shabazz MD Status :[facility] Location: [place] [address] History and Physical Date of Admission: 01/19/25 Date of Service: 12/25/24 MR#: [id number] Acct: [id number] Name: MICHELLE CARLIN Rep #: [id number] : 1980 Provider: Dr. Diann Perez MD Age/Sex: 44/F [place] [facility] Status: Signed Intake Vital Signs 11/22/2508:46 12/25/2514:07 Height 5 ft 4 in 5 ft 4 in Weight: 124 lb 120 lb BMI 21.2 20.5 BP 124/86 H 110/68 Blood Pressure Location Rt brachial Rt brachial Position Sitting Sitting Respiration 17 17 Pulse 71 64 Pulse Source Monitor Monitor Pulse Oximetry (%) 100 99 Oxygen Delivery Method room air room air Intake Visit Reasons: DISCUSS MRI RESULTS & OPTIONS Chief Complaint: discuss MRI results/ options Is patient in pain?: No Allergies suture Allergy (Mild, Verified 12/25/24 15:08) pustramadol (From Ultram) Adverse Reaction (Intermediate, Verified 12/25/24 15:08) hallucinationsshellfish derived Adverse Reaction (Mild, Verified 12/25/24 15:08) Hiveshydrocodone bitartrate (From Vicodin) Adverse Reaction (Verified 12/25/24 15:08) Vomiting Medications ?Medication ?Instructions ?Recorded ?Confirmed ?Type multivitamin 1 cap PO DAILY 04/22/18 12/25/24 History alprazolam 0.25 mg tablet (Xanax) 0.5 mg PO BID-TID PRN Anxiety 06/06/20 12/25/24 History cholecalciferol (vitamin D3) 50 50 mcg PO QDAY 05/16/24 12/25/24 History mcg (2,000 unit) capsule estradiol 2 mg tablet 2 mg PO QDAY 05/16/24 12/25/24 History levothyroxine 50 mcg tablet 50 mcg PO QDAY 05/16/24 12/25/24 History lisdexamfetamine 30 mg capsule 30 mg PO QAM 05/16/24 12/25/24 History (Vyvanse) tizanidine 4 mg capsule 4 mg PO QHS 05/16/24 12/25/24 History rdczsuagte-lnyvgtuzhnhqb-rgncimfz 1 tab PO QHS Headache 06/12/24 12/25/24 History 50 mg-325 mg-40 mg tablet diphenhydramine HCl 25 mg capsule 25 mg PO QHS 12/25/24 12/25/24 History (Benadryl) PFSH Medical History Depression Anxiety Injury of head and neck History of hiatal hernia History of IBS History of diverticulitis Nausea Non-smoker Anxiety and depression History of TIA (transient ischemic attack) History of cervical dysplasia Peritonitis Back pain Thyroid disease Chest pain Migraines Hay fever Fatigue Surgical History Hx of resection of rectum History of hysterectomy History of appendectomy History of colonoscopy (~2008) History of dilation and curettage (~2014) History of bilateral breast reduction surgery (~2017) History of loop electrical excision procedure (LEEP) (~2013) History of ovarian cystectomy H/O oophorectomy Family History Daughter AsthmaFather HypertensionMother Hypertension Thyroid disorder DiabetesGrandmother Breast cancer Cancer omentum OsteoporosisAunt Breast cancerAunt Breast cancer Social History household members: spouse current occupational status: employed current occupation: [employer] [place] Smoking Status: Never smoker alcohol intake: never substance use type: does not use seatbelt use: always do you feel safe at home: Yes additional social history: - Rashard HPI HPI HPI: 44-year-old female came in for follow-up after breast MRI as well as left breastlump. Patient's MRIwas given a BI-RADS 1 negative. Did review with her and her . Patient still states she feelsthis area about 12:00 2 to 3 cm from the nipple about pea-sized. ROS General General: Yes weight change and fatigue; No appetite, colon cancer or breast cancer HEENT HEENT: Yes difficulty swallowing; No eye injury, eye surgery, swollen glands or hoarseness Endo Endocrine: Yes thyroid disease; No diabetes mellitus, thyroid cancer, Hair loss, heat intolerance or cold intolerance Skin Skin: No rash or changing moles Breast Breast: Yes left breast lump; No right breast lump, nipple discharge, breast pain, abnormal mammogram, abnormal US or breast enlargement Musc Musculoskeletal: Yes back problems; No arthritis, rheumatoid arthritis, gout or joint pain Cardio Cardiovascular: No murmur, pacemaker, heart disease, atrial fibrillation, high blood pressure, heart attack, heart stent, palpitations, shortness of breath with exertion or chest pain Psych Psychiatric: No depression, anxiety or hearing voices Resp Respiratory: No shortness of breath, No sleep apnea, No cough, No COPD, No asthma, No emphysema andNo wheezing Gastro Gastrointestinal: Yes abdominal pain, Yes nausea or vomiting, Yes diarrhea, No constipation, No blood in stool, Yes acid reflux, No hemorrhoids, Yes ulcers, Yes gallbladder problem and No black,tarrystools Byron Hematologic: No blood thinners, No blood disorders, No bleeding, No anemia and No blood clots Neuro Neurologic: Yes numbness and Yes tingling Exam Const General: cooperative, healthy appearing and no acute distress HENMT Head: normal to inspection Chest Other: Breast inspection: Symmetric bilaterally-bilateral breast reduction incisions well-healed Right breast: Fibroglandular tissue, no masses on exam, no nipple discharge or pain, no change in overlying skin Left breast: Fibroglandular tissue, palpable nodule at 12:00 2 to 3 cm from the nipple, no nipple discharge or pain, no change in overlying skin No axillary or supraclavicular adenopathy bilaterally Resp Effort & Inspection: normal respiratory effort Cardio Rate: regular rate GI Inspection: non-distended Palpation: soft Skin General: no rashes or lesions noted Neuro General: patient oriented x3 Extrem General: no clubbing, cyanosis or edema Psych Affect: normal affect Assessment and Plan Assessment and Plan (1) Left breast mass: Status: Acute Qualifiers: Breast mass location: upper outer quadrant Qualified Code(s): N63.21 - Unspecified lump in the leftbreast, upper outer quadrant Comment: imaging (2) Family history of breast cancer: Status: Acute Comment: MGM and 2 aunts. Empower test negative. Overall risk 28%:enc yearly mammogram and breast MRI alternating (3) At high risk for breast cancer: Status: Acute Comment: 28.2% [facility] lifetime breast cancer risk Plan On exam I am able to feel the area of concern. I do believe would be able to ray ultrasound wire localization of this area and have it removed. On bedside ultrasound and kind to see an area but it is not easy to see-- not sure would beenough tissue to get a great answer with a percutaneous biopsy.Patient and herhusband are agreeable with ultrasound guided wire localization left excisional breast biopsy. Discussed procedure including but not limited to bleeding, infection, need for further surgery and cosmesis. Patient no further question this time. Diann Perez M.D. Pager: [phone] [facility] [address] [place] [address], [address] [place] [address] Office: [phone] Coding Level of Care Code Off vis,est,level 4 Diagnoses Mass of upper outer quadrant of left breast N63.21 Breast mass location: upper outer quadrant Family history of breast cancer Z80.3 At high risk for breast cancer Z91.89 12/27/24 0853 Date Diann Perez MD 01/19/25 1002 Cosigner Signature (if applicable): CC: Dr. Mark Shabazz MD; Dr. Diann Perez MD~ Signed ADDENDUM by Dr. Diann Perez MD on 01/19/25 at 1052 Addendum I have examined the patient and the H&P has been reviewed. There are no clinicalchanges since date of exam. 01/19/25 1052 Cosigner Signature (if applicable): cc: Dr. Mark Shabazz MD; Dr. Diann Perez MD ~* Signed [facility]05-30-2025 [facility] Medical Records Department [address] [place] [address] History Physical Exam 01/19/25 1001 MR#: [id number] Acct: [id number] Name: MICHELLE CARLIN ANN Rep #: [id number] : 1980 44 From: Diann Perez MD PCP: Dr. Mark Shabazz MD Status:[facility] Location: [place] [address] History and Physical Date of Admission: 01/19/25 Date of Service: 12/25/24 MR#: [id number] Acct: [id number] Name: MICHELLE CARLIN ANN Rep #: [id number] : 1980 Provider: Dr. Diann Perez MD Age/Sex: 44/F Location: [facility] Status: Signed Intake Vital Signs 11/22/2508:46 12/25/2514:07 Height 5 ft 4 in 5 ft 4 in Weight: 124 lb 120 lb BMI 21.2 20.5 BP 124/86 H 110/68 Blood Pressure Location Rt brachial Rt brachial Position Sitting Sitting Respiration 17 17 Pulse 71 64 Pulse Source Monitor Monitor Pulse Oximetry (%) 100 99 Oxygen Delivery Method room air room air Intake Visit Reasons: DISCUSS MRI RESULTS OPTIONS Chief Complaint: discuss MRI results/ options Is patient in pain?: No Allergies suture Allergy (Mild, Verified 12/25/24 15:08) pustramadol (From Ultram) Adverse Reaction (Intermediate, Verified 12/25/24 15:08) hallucinationsshellfish derived Adverse Reaction (Mild, Verified 12/25/24 15:08) Hiveshydrocodone bitartrate (From Vicodin) Adverse Reaction (Verified 12/25/24 15:08) Vomiting Medications ???Medication ???Instructions ???Recorded ???Confirmed ???Type multivitamin 1 cap PO DAILY 04/22/18 12/25/24 History alprazolam 0.25 mg tablet (Xanax) 0.5 mg PO BID-TID PRN Anxiety 06/06/20 12/25/24 Hi story cholecalciferol (vitamin D3) 50 50 mcg PO QDAY 05/16/24 12/25/24 History mcg (2,000 unit) capsule estradiol 2 mg tablet 2 mg PO QDAY 05/16/24 12/25/24 History levothyroxine 50 mcg tablet 50 mcg PO QDAY 05/16/24 12/25/24 History lisdexamfetamine 30 mg capsule 30 mg PO QAM 05/16/24 12/25/24 History (Vyvanse) tizanidine 4 mg capsule 4 mg PO QHS 05/16/24 12/25/24 History fgcjhzdmib-pemyljgmfbjmk-noxquvin 1 tab PO QHS Headache 06/12/24 12/25/24 History 50 mg-325 mg-40 mg tablet diphenhydramine HCl 25 mg capsule 25 mg PO QHS 12/25/24 12/25/24 History (Benadryl) PFSH Medical History Depression Anxiety Injury of head and neck History of hiatal hernia History of IBS History of diverticulitis Nausea Non-smoker Anxiety and depression History of TIA (transient ischemic attack) History of cervical dysplasia Peritonitis Back pain Thyroid disease Chest pain Migraines Hay fever Fatigue Surgical History Hx of resection of rectum History of hysterectomy History of appendectomy History of colonoscopy ( 2008) History of dilation and curettage ( 2014) History of bilateral breast reduction surgery ( 2018) History of loop electrical excision procedure (LEEP) ( 2013) History of ovarian cystectomy H/O oophorectomy Family History Daughter AsthmaFather HypertensionMother Hypertension Thyroid disorder DiabetesGrandmother Breast cancer Cancer omentum OsteoporosisAunt Breast cancerAunt Breast cancer Social History household members: spouse current occupational status: employed current occupation: [employer] [place] Smoking Status: Never smoker alcohol intake: never substance use type: does not use seatbelt use: always do you feel safe at home: Yes additional social history: - Rashard HPI HPI HPI: 44-year-old female came in for follow-up after breast MRI as well as left breast lump. Patient's MRI was given a BI-RADS 1 negative. Did review with her and her . Patient still states she feels this area about 12:00 2 to 3 cm from the nipple about pea-sized. ROS General General: Yes weight change and fatigue; No appetite, colon cancer or breast cancer HEENT HEENT: Yes difficulty swallowing; No eye injury, eye surgery, swollen glands or hoarseness Endo Endocrine: Yes thyroid disease; No diabetes mellitus, thyroid cancer, Hair loss, heat intolerance or cold intolerance Skin Skin: No rash or changing moles Breast Breast: Yes left breast lump; No right breast lump, nipple discharge, breast pain, abnormal mammogram, abnormal US or breast enlargement Musc Musculoskeletal: Yes back problems; No arthritis, rheumatoid arthritis, gout or joint pain Cardio Cardiovascular: No murmur, pacemaker, heart disease, atrial fibrillation, high blood pressure, heart attack, heart stent, palpitations, shortness (more content not included)... [facility] [id number] Radiology Diagnostic study note [facility] Imaging Services [address] [place] [address] Cerv Spine 2 or 3 Views MR#: [id number] Acct: [id number] Name: MICHELLE CARLIN Rep #: [id number] : 1980 F 44 From: Gwyn Smith MD PCP: Dr. Mark Shabazz MD Status: REG CLI Study:Cerv Spine 2 or 3 Views Date of Exam: 01/09/25 Exam# [id number] Ordering Dr: Celina Gunderson D.C. PROCEDURE: CERV SPINE 2 OR 3 VIEWS 01/09/2025 REASON FOR EXAM: NECK PAIN TECHNIQUE: 3 views of the cervical spine. AP, lateral and open-mouth odontoid COMPARISON: None available FINDINGS: Cervical spine is visualized on the lateral view from the skull base to T1. Straightening may represent positioning or spasm. No prevertebral soft tissue swelling. No fracture or malalignment. The disc spaces appear within limits. The visualized apices appear clear. RAD/Cerv Spine 2 or 3 Views IMPRESSION: Straightening may represent positioning or spasm. No prevertebral soft tissue swelling. Reading Location: [facility] CC: CA Dr. Mirna Gunderson; Dr. Mark Shabazz MD ~ Tabulating Supervisor: Signed [facility]05-21-2025 Radiology Diagnostic study note [facility] Imaging Services [address] [place] [address] L/S Spine Min 4 Views MR#: [id number] Acct: [id number] Name: MICHELLE CARLIN ANN Rep #: [id number] : 1980 F 44 From: Gwyn Smith MD PCP: Dr. Mark Shabazz MD Status: REG CLI Study:L/S Spine Min 4 Views Date of Exam: 01/09/25 Exam# [id number] Ordering Dr: Celina Gunderson D.C. PROCEDURE: L/S SPINE MIN 4 VIEWS 01/09/2025 REASON FOR EXAM: BACK PAIN TECHNIQUE: Four views; AP, bilateral oblique and lateral COMPARISON: None available FINDINGS: 5 [id number]-[id number] lumbar vertebral type bodies identified. No fracture or malalignment. No evidenceof spondylolysis. Disc spaces appear within limits. RAD/L/S Spine Min 4 Views IMPRESSION: Study appears within limits. Reading Location: [id number] CC: CA Dr. Mirna Gunderson; Dr. Mark Shabazz MD ~ Tabulating Supervisor: Signed [facility]04-22-2025 History of Present illness Narrative* Mariana Domenico, CONFIGURATION CONSULTANT - ELECTRICAL AND INSTRUMENT ENGINEER - 12/12/2024 10:00 AM EDT DEPARTMENT OF NEUROLOGY BOTOX PROCEDURE NOTE FOR HEADACHE Date: 12/12/24 Patient: Michelle Carlin : 1980 Diagnosis: Intractable chronic migraine without aura and without status migrainosus [G43.719] Procedure: Botox injections into the scalp and posterior cervical muscles. Prior to procedure risks, benefits, alternatives, and potential side effects were reviewed with patient. Specifically reviewed possible risk of temporary muscle weakness. All questions were answered,patient expressed understanding, verbal consent given for procedure. No numbing spray applied/removed. Botox was injected with the parameters below: With the patient in sitting position, she received Botox injections in the neck and skull muscles. Patient receive the following doses: 1. R Frontalis 10 units 2. L Frontalis 10 units 3. R Enterprise Systems Architect 10 units 4. L Enterprise Systems Architect 10 units 5. R Temporalis 20 units 6. L Temporalis 20 units 7. R Occipitalis 25 units 8. L Occipitalis 25 units 9. R Trapezious 20 units 10. L Trapezious 20 units 11. R Masseter 15 units 12. L Masseter 15 units Total units injected 200 units. Units discarded 0 units. Comments: The patient states an improvement in migraine frequency and severity of at least 75% frombaseline. For the acute treatment of migraine the patient has used Nurtec with good results along with Fioricet. The patient states headaches have increased possibly due to weather changes and recenttravel. The patient reports vision changes and speech difficulty that resolved after about an hour after using Fioricet. The patient reports jaw pain is improved following Botox in the masseter muscles. Botox provided in the masseters as documented above. The patient reports improvement in neck and shoulder pain associated with migraine after receiving TPI and would like to continue treatment. TPI provided as documented below. The patient will follow up in the neurology clinic in about 3 months, sooner if needed. [x] Pt tolerated procedure well. Pt advised to avoid exercise or strenuous physical activity for 24hours. Post treatment expectations reviewed in detail. CLEVELAND Lara CNP 12/12/24 Procedure: Trigger point injections into posterior cervical muscles. With the patient is sitting position patient received trigger point injection into the posterior cervical, shoulder muscles. The injections were performed with 9 mL's of 1% lidocaine and trace of Kenalog. Patient injections were performed as follows: 1. Right trapezius 3 trigger point injections 2. Left trapezius 3 trigger point injections 3. Right splenius capitis 1 trigger point injection 4. Left splenius capitis 1 injection 5. Right levator scapula 1 injection 6. Left levator scapula 1 injection Patient received TPI for a diagnosis of myofascial pain. The patient reports improvement of at least 60% after receiving TPI today. CLEVELAND Lara CNP 12/12/24 * Karen Nguyen MA - 12/12/2024 10:00 AM EDT Administrations This Visit onabotulinumtoxin A (BOTOX) injection 200 Units Admin Date 12/12/2024 Action Given Dose 200 Units Route IntraMUSCular Site Other Administered By MARIEL Ordering Provider: Mariana Acuña CNP [facility]:[id number] Lot#: [id number] Administrative Job Titles: allergan Patient Supplied?: no,buy and bill * Karen Nguyen MA - 12/12/2024 10:00 AM EDT 12/12/2024 Mariana Acuña CNP Trigger point injections Lidocaine [facility] [id number] Lot [id number] 9ml Abram [facility] [id number] Lot [id number] 1 ml documented in this [facility]04-22-2025 [facility] OF NEUROLOGY BOTOX PROCEDURE NOTE FOR HEADACHE Date: 12/12/24 Patient: Michelle Carlin : 1980 Diagnosis: Intractable chronic migraine without aura and without status migrainosus [G43.719] Procedure: Botox injections into the scalp and posterior cervical muscles. Prior to procedure risks, benefits, alternatives, and potential side effects were reviewed with patient. Specifically reviewed possible risk of temporary muscle weakness. All questions were answered, patient expressed understanding, verbal consent given for procedure. No numbing spray applied/removed. Botox was injected with the parameters below: With the patient in sitting position, she received Botox injections in the neck and skull muscles. Patient receive the following doses: 1. R Frontalis 10 units 2. L Frontalis 10 units 3. R Enterprise Systems Architect 10 units 4. L Enterprise Systems Architect 10 units 5. R Temporalis 20 units 6. L Temporalis 20 units 7. R Occipitalis 25 units 8. L Occipitalis 25 units 9. R Trapezious 20 units 10. L Trapezious 20 units 11. R Masseter 15 units 12. L Masseter 15 units Total units injected 200 units. Units discarded 0 units. Comments: The patient states an improvement in migraine frequency and severity of at least 75% from baseline. For the acute treatment of migraine the patient has used Nurtec with good results along with Fioricet. The patient states headaches have increased possibly due to weather changes and recent travel. The patient reports vision changes and speech difficulty that resolved after about an hour after using Fioricet. The patient reports jaw pain is improved following Botox in the masseter muscles. Botox provided in the masseters as documented above. The patient reports improvement in neck and shoulder pain associated with migraine after receiving TPI and would like to continue treatment. TPI provided as documented below. The patient will follow up in the neurology clinic in about 3 months, sooner if needed. [x] Pt tolerated procedure well. Pt advised to avoid exercise or strenuous physical activity for 24 hours. Post treatment expectations reviewed in detail. Mariana Acuña, CONFIGURATION CONSULTANT - ELECTRICAL AND INSTRUMENT ENGINEER 12/12/24 Procedure: Trigger point injections into posterior cervical muscles. With the patient is sitting position patient received trigger point injection into the posterior cervical, shoulder muscles. The injections were performed with 9 mL's of 1% lidocaine and trace of Kenalog. Patient injections were performed as follows: 1. Right trapezius 3 trigger point injections 2. Left trapezius 3 trigger point injections 3. Right splenius capitis 1 trigger point injection 4. Left splenius capitis 1 injection 5. Right levator scapula 1 injection 6. Left levator scapula 1 injection Patient received TPI for a diagnosis of myofascial pain. The patient reports improvement of at least 60% after receiving TPI today. Mariana Richardson CLEVELAND Acuña CNP 12/12/24[facility]03-28-2025 Radiology Diagnostic study note [facility] Imaging Services [address] [place], [place] [address] Breast Limited Unilateral MR#: [id number] Acct: [id number] Name: MICHELLE CARLIN ANN Rep #: [id number] : 1980 F 44 From: Jelani Longo MD PCP: Dr. Mark Shabazz MD Status: REG CLI Study:Breast Limited Unilateral Date of Exam: 11/14/24 Exam# [id number] Ordering Dr: Maryjane Alvarado PROCEDURE: BREAST LIMITED UNILATERAL 11/14/2024 REASON FOR EXAM: LEFT BREAST LUMP TECHNIQUE: Targeted left breast ultrasound. COMPARISON: Bilateral mammograms of the same date. FINDINGS: Left breast ultrasound was targeted to the area of lumpy consistency in the upper-outer quadrant ofthe left breast.. The breast tissue appears sonographically normal. No cyst, solid mass, or suspicious shadowing. US/Breast Limited Unilateral IMPRESSION: Impression: Negative left breast sonogram. Birads: 1, negative. Reading Location: [facility] CC: GRAHAM Alvarado; Dr. Mark Shabazz MD ~ Tabulating Supervisor: Signed [facility]03-12-2025 Evaluation note* Diagnosis Onset Date Resolution Status Admit Date Family history of breast cancer acut e November 01, 2024 3:32pm Left breast mass acute November 012024 3:32pm At high risk for breast cancer acute November 22, 2024 9:28am Family history of breast cancer acut e November 22, 2024 9:28am Left breast mass acute November 9:28am At high risk for breast cancer acute December 25, 2024 2:58pm Family history of breast cancer acut e December 25, 2024 2:58pm Left breast mass acute December 25, 2024 2:58pm Back pain acute January 09, 2025 10:54am Cervical segment dysfunction acute January 09, 2025 10:54am Migraines acute January 09, 2025 10:54am Neck pain acute January 09, 2025 10:54am Segmental and somatic dysfunction of thoracic region acute M ay 2024 10:54am Segmental dysfunction of lum bar region acute January 09, 2025 1 0:54am [facility] Work Phone: 1(208) 591-697303-12-2025 Evaluation note* Diagnosis Onset Date Resolution Status Admit Date Family history of breast cancer acut e November 01, 2024 3:32pm Left breast mass acute November 012024 3:32pm At high risk for breast cancer acute November 22, 2024 9:28am Family history of breast cancer acut e November 22, 2024 9:28am Left breast mass acute November 9:28am At high risk for breast cancer acute December 25, 2024 2:58pm Family history of breast cancer acut e December 25, 2024 2:58pm Left breast mass acute December 25, 2024 2:58pm Back pain acute January 09, 2025 10:54am Cervical segment dysfunction acute January 09, 2025 10:54am Migraines acute January 09, 2025 10:54am Neck pain acute January 09, 2025 10:54am Segmental and somatic dysfunction of thoracic region acute M ay 2024 10:54am Segmental dysfunction of lum bar region acute January 09, 2025 1 0:54am Cervical segment dysfunction acute January 23, 2025 12:53pm Segmental and somatic dysfunction of thoracic region acute J une 2024 12:53pm Segmental dysfunction of lum bar region acute January 23, 2025 1 2:53pm Cervical segment dysfunction acute January 29, 2025 4:11pm Segmental and somatic dysfunction of thoracic region acute J une 2024 4:11pm Segmental dysfunction of lum bar region acute January 29, 2025 4 :11pm [facility] Work Phone: 1(355) 410-606003-12-2025 Evaluation note* Diagnosis Onset Date Resolution Status Admit Date Family history of breast cancer acut e November 01, 2024 3:32pm Left breast mass acute November 012024 3:32pm At high risk for breast cancer acute November 22, 2024 9:28am Family history of breast cancer acut e November 22, 2024 9:28am Left breast mass acute November 9:28am At high risk for breast cancer acute December 25, 2024 2:58pm Family history of breast cancer acut e December 25, 2024 2:58pm Left breast mass acute December 25, 2024 2:58pm Back pain acute January 09, 2025 10:54am Cervical segment dysfunction acute January 09, 2025 10:54am Migraines acute January 09, 2025 10:54am Neck pain acute January 09, 2025 10:54am Segmental and somatic dysfunction of thoracic region acute M 2024 10:54am Segmental dysfunction of lum bar region acute January 09, 2025 1 0:54am Cervical segment dysfunction acute January 23, 2025 12:53pm Segmental and somatic dysfunction of thoracic region acute J une 2024 12:53pm Segmental dysfunction of lum bar region acute January 23, 2025 1 2:53pm [facility] Work Phone: 1([phone]) 368-243103-12-2025 Evaluation note* Diagnosis Onset Date Resolution Status Admit Date Family history of breast cancer acut e November 01, 2024 3:32pm Left breast mass acute November 012024 3:32pm At high risk for breast cancer acute November 22, 2024 9:28am Family history of breast cancer acut e November 22, 2024 9:28am Left breast mass acute November 9:28am At high risk for breast cancer acute December 25, 2024 2:58pm Family history of breast cancer acut e December 25, 2024 2:58pm Left breast mass acute December 25, 2024 2:58pm Back pain acute January 09, 2025 10:54am Cervical segment dysfunction acute January 09, 2025 10:54am Migraines acute January 09, 2025 10:54am Neck pain acute January 09, 2025 10:54am Segmental and somatic dysfunction of thoracic region acute M ay 2024 10:54am Segmental dysfunction of lum bar region acute January 09, 2025 1 0:54am Cervical segment dysfunction acute January 23, 2025 12:53pm Segmental and somatic dysfunction of thoracic region acute J une 2024 12:53pm Segmental dysfunction of lum bar region acute January 23, 2025 1 2:53pm Cervical segment dysfunction acute January 29, 2025 4:11pm Segmental and somatic dysfunction of thoracic region acute J une 2024 4:11pm Segmental dysfunction of lum bar region acute January 29, 2025 4 :11pm Back pain acute February 06 9:53am [facility] Work Phone: 1(620) 604-634203-12-2025 Evaluation note* Diagnosis Onset Date Resolution Status Admit Date Family history of breast cancer acut e November 01, 2024 3:32pm Left breast mass acute November 012024 3:32pm At high risk for breast cancer acute November 22, 2024 9:28am Family history of breast cancer acut e November 22, 2024 9:28am Left breast mass acute November 9:28am At high risk for breast cancer acute December 25, 2024 2:58pm Family history of breast cancer acut e December 25, 2024 2:58pm Left breast mass acute December 25, 2024 2:58pm Back pain acute January 09, 2025 10:54am Cervical segment dysfunction acute January 09, 2025 10:54am Neck pain acute January 09, 2025 10:54am Segmental and somatic dysfunction of thoracic region acute M ay 2024 10:54am Segmental dysfunction of lum bar region acute January 09, 2025 1 0:54am Migraines chronic January 09, 2025 10:54am Cervical segment dysfunction acute January 23, 2025 12:53pm Segmental and somatic dysfunction of thoracic region acute [facility] 2024 12:53pm Segmental dysfunction of lum bar region acute January 23, 2025 1 2:53pm Cervical segment dysfunction acute January 29, 2025 4:11pm Segmental and somatic dysfunction of thoracic region acute J une 2024 4:11pm Segmental dysfunction of lum bar region acute January 29, 2025 4 :11pm Back pain acute February 06 9:53am Cervical segment dysfunction acute February 06, 2025 9:53am Segmental and somatic dysfunction of thoracic region acute [facility] 2024 9:53am Segmental dysfunction of lum bar region acute February 06, 2025 9:53am Migraines chronic February 06 9:53am [facility] Work Phone: 1(410) 132-869103-12-2025 Evaluation note* Diagnosis Onset Date Resolution Status Admit Date Family history of breast cancer acut e November 01, 2024 3:32pm Left breast mass acute November 012024 3:32pm At high risk for breast cancer acute November 22, 2024 9:28am Family history of breast cancer acut e November 22, 2024 9:28am Left breast mass acute November 9:28am At high risk for breast cancer acute December 25, 2024 2:58pm Family history of breast cancer acut e December 25, 2024 2:58pm Left breast mass acute December 25, 2024 2:58pm Back pain acute January 09, 2025 10:54am Cervical segment dysfunction acute January 09, 2025 10:54am Neck pain acute January 09, 2025 10:54am Segmental and somatic dysfunction of thoracic region acute [facility] 2024 10:54am Segmental dysfunction of lum bar region acute January 09, 2025 1 0:54am Migraines chronic January 09, 2025 10:54am Cervical segment dysfunction acute January 23, 2025 12:53pm Segmental and somatic dysfunction of thoracic region acute [facility] 2024 12:53pm Segmental dysfunction of lum bar region acute January 23, 2025 1 2:53pm Cervical segment dysfunction acute January 29, 2025 4:11pm Segmental and somatic dysfunction of thoracic region acute [facility] 2024 4:11pm Segmental dysfunction of lum bar region acute January 29, 2025 4 :11pm Back pain acute February 06 9:53am Cervical segment dysfunction acute February 06, 2025 9:53am Segmental and somatic dysfunction of thoracic region acute [facility] 2024 9:53am Segmental dysfunction of lum bar region acute February 06, 2025 9:53am Migraines chronic February 06 9:53am Gastroparesis acute February 20 025 10:52am Irritable bowel syndrome wit h diarrhea acute February 20, 2025 1 0:52am [facility] Work Phone: 1(652) 999-485203-11-2025 History of Present illness Narrative* Mariana Acuña, CONFIGURATION CONSULTANT - ELECTRICAL AND INSTRUMENT ENGINEER - 10/31/2024 9:30 AM EDT [facility]PAT[facility]IC Primary Care Physician: Mark Shabazz Chief Complaint: Chief Complaint Patient presents with Follow-up TPI - Intractable migraine Main Diagnosis: Diagnosis Plan 1. Intractable chronic migraine without aura and without status migrainosus 2. Myofascial pain lidocaine (Xylocaine) 1 % injection 9 mL triamcinolone acetonide (Kenalog) injection 10 mg History: given by the patient and EMR. EMR was personally reviewed prior to today's visit and included review of prior notes and intermediate communications. HPI: Ms. Michelle Carlin is a 44 y.o. female who is seen in the NEUROLOGY CLINIC of [facility] for migraines. Patient states she has suffered migraines since 2006. Patient has been on fioricet for abortive which worked for awhile but unfortunately no longer is as effective. Patient states her headaches are frontal/temporal, bilateral. She describes her pain as a dull pain. She has associated symptoms of photophobia, phonophobia, visual aura, nausea, and dizziness. Patient complains of having headaches 6 out of 10 days with 60 % of the headaches evolving into a migraine. Patient is positive for thyroid disease. She has family history of migraines with her Mother. Other family history: Cancer, diabetes, and hypertension. Patient is a non-smoker and drinks alcohol occasionally. The last visit was 09/19/2024 with this provider where the patient received Botox injections for theprevention of migraine pain. Headache characteristics: Description of pain: throbbing pain, bilateral in the frontal area, bilateral in the temporal area. Duration of individual headaches: 4-36 hour(s), frequency weekly. Associated symptoms: aura, light sensitivity, nausea, visual disturbance, and sound sensitivity. Pain relief: prescription medications - triptan therapy. Precipitating factors: stress and weather changes. INTERVAL HISTORY: Today, the patient returns for follow up of migraine control on current medication regimen. The patient reports increased neck and shoulder myofascial pain which she feels is resolved with TPI. The patient would like to receive TPI again today. TPI provided as documented below. The patient uses fioricet and ketorolac for treatment of migraine pain. Patient denies any side effects from medications and no new neurological deficits. Current migraine Meds: Botox Fioricet Nurtec Side effects: No known side effects Previous medication trials: Imitrex Maxalt Emgality Phenergan Benedryl Topamax Ubrelvy Amitriptyline Nortriptyline Past Medical History: Diagnosis Date ADHD (attention deficit hyperactivity disorder) Anxiety Cluster headache Headache Headache, tension-type Migraine Numbness Trigeminal neuralgia Vision loss Past Surgical History: Procedure Laterality Date COLPOSCOPY 2014 HYSTEROSCOPY 2015 plus D&C OOPHORECTOMY Left 2009 OVARIAN CYST SURGERY Right 2013 Allergies Allergen Reactions Amoxicillin-Pot Clavulanate Other reaction(s): Hives and/or rash Hydrocodone-Acetaminophen Nausea And Vomiting Other reaction(s): Severe nausea & vomiting, Vomiting Shellfish-Derived Products Tramadol Hallucinations @[email or web address]@ Current Outpatient Medications Medication Sig Dispense Refill ALPRAZolam (Xanax) 0.5 MG tablet cholecalciferol (Vitamin D-3) 50 MCG (2000 UT) capsule Take by mouth. diphenhydrAMINE (Benadryl Allergy) 25 MG capsule Take 50 mg by mouth. estradiol (Estrace) 2 MG tablet Take 2 mg by mouth daily. ketorolac (Toradol) 60 MG/2ML solution Inject 2 mL (60 mg) into the shoulder, thigh, or buttocks every 6 hours as needed (Migraine pain). Do not exceed 5 doses in one week or 10 doses in one month. 20 mL 3 levothyroxine (Synthroid, Levoxyl) 50 MCG tablet Take 50 mcg by mouth daily. lisdexamfetamine (Vyvanse) 30 MG capsule Take 30 mg by mouth every morning. onabotulinumtoxinA (Botox) 200 units injection Provider to inject 200 units intramuscularly every 12 weeks for migraine prevention. 1 each 3 ondansetron ODT (Zofran-ODT) 4 MG disintegrating tablet dissolve 1 tablet under the tongue every 8 hours if needed for nausea OR vomiting Strength: 4 mg 60 tablet 5 Syringe 25G X 1 3 ML misc 1 Syringe Once as needed (Migraine) for up to 1 dose. 20 each 3 therapeutic multivitamin-minerals (Theragran-M) tablet Take 1 tablet by mouth daily. tiZANidine (Zanaflex) 4 MG tablet Take 1 tablet (4 mg) by mouth every 8 hours as needed for muscle spasms. 0 Refill(s) 90 tablet 1 Current Facility-Administered Medications Medication Dose Route Frequency Provider Last Rate Last Admin lidocaine (Xylocaine) 1 % injection 9 mL 9 mL IntraDERmal Once Mariana Domenico, CONFIGURATION CONSULTANT - ELECTRICAL AND INSTRUMENT ENGINEER lidocaine (Xylocaine) 1 % injection 9 mL 9 mL IntraDERmal Once Mariana Domenico, CONFIGURATION CONSULTANT - ELECTRICAL AND INSTRUMENT ENGINEER lidocaine (Xylocaine) 1 % injection 9 mL 9 mL IntraDERmal Once Mariana Domenico, CONFIGURATION CONSULTANT - ELECTRICAL AND INSTRUMENT ENGINEER triamcinolone acetonide (Kenalog) injection 10 mg 10 mg IntraMUSCular Once Mariana Domenico, CONFIGURATION CONSULTANT - ELECTRICAL AND INSTRUMENT ENGINEER triamcinolone acetonide (Kenalog) injection 10 mg 10 mg IntraMUSCular Once Mariana Domenico, CONFIGURATION CONSULTANT - ELECTRICAL AND INSTRUMENT ENGINEER triamcinolone acetonide (Kenalog) injection 10 mg 10 mg IntraMUSCular Once Mariana Domenico, CONFIGURATION CONSULTANT - ELECTRICAL AND INSTRUMENT ENGINEER Family History Problem Relation Name Age of Onset High Blood Pressure Mother Sara Other ([id number]) Mother Sara fibromyalgia, anxiety issues Cancer Mother Sara thyroid Diabetes Mother Sara ADD / ADHD Mother Sara Anxiety disorder Mother Sara Depression Mother Sara Fibromyalgia Mother Sara Migraines Mother Sara Neuropathy Mother Sara High Blood Pressure Father Cancer Other great Mat grandma pancreatic Cancer Paternal Grandmother breast and ovarian Cancer Other 2n cousin-paternal breast Cancer Mother's Sister breast Cancer Father's Sister skin Parkinsonism Paternal Grandfather Aadm Social Connections: Not on file REVIEW OF SYSTEMS: Review of Systems Constitutional: Positive for appetite change. Negative for activity change and chills. HENT: Positive for sinus pressure. Negative for ear pain, facial swelling, mouth sores, rhinorrhea,sinus pain and tinnitus. Eyes: Positive for visual disturbance. Negative for photophobia and pain. Respiratory: Negative for cough and chest tightness. Gastrointestinal: Positive for nausea. Negative for abdominal pain and vomiting. Endocrine: Negative for cold intolerance and heat intolerance. Genitourinary: Negative for difficulty urinating. Musculoskeletal: Positive for back pain, neck pain and neck stiffness. Allergic/Immunologic: Positive for environmental allergies. Negative for food allergies. Neurological: Positive for numbness and headaches. Negative for dizziness, tremors, syncope, speechdifficulty and weakness. Hematological: Does not bruise/bleed easily. Psychiatric/Behavioral: Negative for confusion, decreased concentration and hallucinations. The patient is not nervous/anxious. All other systems reviewed and are negative. PHYSICAL EXAM: BP 118/78 Ht 5' 4 (1.626 m) Wt 112 lb (50.8 kg) BMI 19.22 kg/m Physical Exam Vitals and nursing note reviewed. Constitutional: Appearance: Normal appearance. She is normal weight. HENT: Head: Normocephalic. Nose: Nose normal. Eyes: Extraocular Movements: Extraocular movements intact. Conjunctiva/sclera: Conjunctivae normal. Pupils: Pupils are equal, round, and reactive to light. Pulmonary: Effort: Pulmonary effort is normal. Musculoskeletal: General: Normal range of motion. Cervical back: Normal range of motion. Skin: General: Skin is warm and dry. Neurological: General: No focal deficit present. Mental Status: She is alert and oriented to person, place, and time. Mental status is at baseline. Psychiatric: Mood and Affect: Mood normal. Behavior: Behavior normal. Thought Content: Thought content normal. Judgment: Judgment normal. Neuro: Alert and oriented x4. Language: fluent and prosodic. Content and vocabulary reasonable for age and education level. Attention and Concentration intact Fund of knowledge: Knowledge of current events demonstrated. CN II: PERRLA CN III, IV, : EOM intact, no end-gaze nystagmus CN VII: smiling and tight eye closure symmetric CN VIII: grossly intact Gait: routine gait steady ASSESSMENT: 44 y.o. female with past medical history as above who presents for follow up evaluation of migrainewith improvement on current medication regimen. IMPRESSION: Diagnosis Plan 1. Intractable chronic migraine without aura and without status migrainosus 2. Myofascial pain lidocaine (Xylocaine) 1 % injection 9 mL triamcinolone acetonide (Kenalog) injection 10 mg PLAN: 1. TPI provided as documented below. 2. Patient will follow up in about 6 weeks for Botox injections, sooner if needed. I hope that all of your questions and concerns were addressed during today's visit. Please don't hesitate to call the Department of Neurology at [phone] for any further concerns. Sincerely, CLEVELAND Lara CNP The above diagnosis and management plan were discussed at length with the patient who voiced understanding and agreed. Electronically signed by: CLEVELAND Lara CNP 10/31/2024 9:38 AM Procedure: Trigger point injections into posterior cervical muscles. With the patient is sitting position patient received trigger point injection into the posterior cervical, shoulder muscles. The injections were performed with 9 mL's of 1% lidocaine and trace of Kenalog. Patient injections were performed as follows: 1. Right trapezius 3 trigger point injections. 2. Left trapezius 3 trigger point injections. 3. Right splenius capitis 1 trigger point injection 4. Left splenius capitis 1 injection. 5. Right levator scapula 1 injection 6. Left levator scapula 1 injection Patient received TPI for a diagnosis of myofascial pain. The patient reports improvement of at least 60% after receiving TPI today. CLEVELAND Lara CNP 10/31/24 * Karen Nguyen MA - 10/31/2024 9:30 AM EDT 10/31/2024 Trigger point injections Mariana Acuña CNP Lidocaine [facility] [id number] Lot [id number] 9 ml Kenalog [facility] [id number] Lot [id number] 1 ml documented in this [facility]01-28-2025 Evaluation note* Diagnosis Onset Date Resolution Status Admit Date Abdominal pain acute September 192024 10:18am Gastroparesis acute August 10:18am IBD (inflammatory bowel disease) acute September 19 10:18am Irritable bowel syndrome wit h diarrhea acute September 19 10:18am Family history of breast cancer acut e November 01, 2024 3:32pm Left breast mass acute November 012024 3:32pm [facility] Work Phone: 1([phone]) 814-572201-28-2025 Evaluation note* Diagnosis Onset Date Resolution Status Admit Date Abdominal pain acute September 192024 10:18am Gastroparesis acute August 10:18am IBD (inflammatory bowel disease) acute September 19 10:18am Irritable bowel syndrome wit h diarrhea acute September 19 10:18am Family history of breast cancer acut e November 01, 2024 3:32pm Left breast mass acute November 012024 3:32pm At high risk for breast cancer acute November 22, 2024 9:28am Family history of breast cancer acut e November 22, 2024 9:28am Left breast mass acute November d2024 9:28am [facility] Work Phone: 1(374) 283-889301-28-2025 Evaluation note* Diagnosis Onset Date Resolution Status Admit Date Abdominal pain acute September 192024 10:18am Gastroparesis acute August 10:18am IBD (inflammatory bowel disease) acute September 19 10:18am Irritable bowel syndrome wit h diarrhea acute September 19 10:18am Family history of breast cancer acut e November 01, 2024 3:32pm Left breast mass acute November 012024 3:32pm At high risk for breast cancer acute November 22, 2024 9:28am Family history of breast cancer acut e November 22, 2024 9:28am Left breast mass acute November 9:28am At high risk for breast cancer acute December 25, 2024 2:58pm Family history of breast cancer acut e December 25, 2024 2:58pm Left breast mass acute December 25, 2024 2:58pm Migraines acute January 09, 2025 10:54am [facility] Work Phone: 1([phone] 769-231801-28-2025 Evaluation note* Diagnosis Onset Date Resolution Status Admit Date Abdominal pain acute September 192024 10:18am Gastroparesis acute August 10:18am IBD (inflammatory bowel disease) acute September 19 10:18am Irritable bowel syndrome wit h diarrhea acute September 19 10:18am Family history of breast cancer acut e November 01, 2024 3:32pm Left breast mass acute November 012024 3:32pm At high risk for breast cancer acute November 22, 2024 9:28am Family history of breast cancer acut e November 22, 2024 9:28am Left breast mass acute November 9:28am At high risk for breast cancer acute December 25, 2024 2:58pm Family history of breast cancer acut e December 25, 2024 2:58pm Left breast mass acute December 25, 2024 2:58pm Back pain acute January 09, 2025 10:54am Cervical segment dysfunction acute January 09, 2025 10:54am Migraines acute January 09, 2025 10:54am Neck pain acute January 09, 2025 10:54am Segmental and somatic dysfunction of thoracic region acute M 2024 10:54am Segmental dysfunction of lum bar region acute January 09, 2025 1 0:54am [facility] Work Phone: 1(160) 914-979401-28-2025 History of Present illness Narrative* Mariana Acuña, [place] - ELECTRICAL AND INSTRUMENT ENGINEER - 09/19/2024 8:00 AM EST DEPARTMENT OF NEUROLOGY BOTOX PROCEDURE NOTE FOR HEADACHE Date: 09/19/24 Patient: Michelle Carlin : 1980 Diagnosis: Intractable chronic migraine without aura and without status migrainosus [G43.719] Procedure: Botox injections into the scalp and posterior cervical muscles. Prior to procedure risks, benefits, alternatives, and potential side effects were reviewed with patient. Specifically reviewed possible risk of temporary muscle weakness. All questions were answered,patient expressed understanding, verbal consent given for procedure. No numbing spray applied/removed. Botox was injected with the parameters below: With the patient in sitting position, she received Botox injections in the neck and skull muscles. Patient receive the following doses: 1. R Frontalis 10 units 2. L Frontalis 10 units 3. R Enterprise Systems Architect 10 units 4. L Enterprise Systems Architect 10 units 5. R Temporalis 20 units 6. L Temporalis 20 units 7. R Occipitalis 25 units 8. L Occipitalis 25 units 9. R Trapezious 20 units 10. L Trapezious 20 units 11. R Masseter 15 units 12. L Masseter 15 units Total units injected 200 units. Units discarded 0 units. Comments: The patient states an improvement in migraine frequency and severity of at least 75% frombaseline. For the acute treatment of migraine the patient has used Nurtec with good results along with Fioricet. The patient states headaches have increased as she is overdue for Botox injections. The patient reports jaw pain is improved following Botox in the masseter muscles. Botox provided in the masseters as documented above. The patient will follow up in the neurology clinic in about 3 months, sooner if needed. [x] Pt tolerated procedure well. Pt advised to avoid exercise or strenuous physical activity for 24hours. Post treatment expectations reviewed in detail. CLEVELAND Lara CNP 09/19/24 Procedure: Trigger point injections into posterior cervical muscles. With the patient is sitting position patient received trigger point injection into the posterior cervical, shoulder muscles. The injections were performed with 9 mL's of 1% lidocaine and trace of Kenalog. Patient injections were performed as follows: 1. Right trapezius 3 trigger point injections 2. Left trapezius 3 trigger point injections 3. Right splenius capitis 1 trigger point injection 4. Left splenius capitis 1 injection 5. Right levator scapula 1 injection 6. Left levator scapula 1 injection Patient received TPI for a diagnosis of myofascial pain. The patient reports improvement of at least 60% after receiving TPI today. CLEVELAND Lara CNP 09/19/24 * Marilee Collins MA - 09/19/2024 8:00 AM EST Administrations This Visit onabotulinumtoxin A (BOTOX) injection 200 Units Admin Date 09/19/24 Action Given Dose 200 Units Route IntraMUSCular Site Other Administered By CLEVELAND Lara CNP Ordering Provider: CLEVELAND Lara CNP ND: [id number] Lot#: [id number] Administrative Job Titles: [employer] Patient Supplied?: No documented in this [facility]01-28-2025 History of Present illness Narrative* CLEVELAND Patel CNP - 09/19/2024 8:00 AM EST DEPARTMENT OF NEUROLOGY BOTOX PROCEDURE NOTE FOR HEADACHE Date: 09/19/24 Patient: Michelle Carlin : 1980 Diagnosis: Intractable chronic migraine without aura and without status migrainosus [G43.719] Procedure: Botox injections into the scalp and posterior cervical muscles. Prior to procedure risks, benefits, alternatives, and potential side effects were reviewed with patient. Specifically reviewed possible risk of temporary muscle weakness. All questions were answered,patient expressed understanding, verbal consent given for procedure. No numbing spray applied/removed. Botox was injected with the parameters below: With the patient in sitting position, she received Botox injections in the neck and skull muscles. Patient receive the following doses: 1. R Frontalis 10 units 2. L Frontalis 10 units 3. R Enterprise Systems Architect 10 units 4. L Enterprise Systems Architect 10 units 5. R Temporalis 20 units 6. L Temporalis 20 units 7. R Occipitalis 25 units 8. L Occipitalis 25 units 9. R Trapezious 20 units 10. L Trapezious 20 units 11. R Masseter 15 units 12. L Masseter 15 units Total units injected 200 units. Units discarded 0 units. Comments: The patient states an improvement in migraine frequency and severity of at least 75% frombaseline. For the acute treatment of migraine the patient has used Nurtec with good results along with Fioricet. The patient states headaches have increased as she is overdue for Botox injections. The patient reports jaw pain is improved following Botox in the masseter muscles. Botox provided in the masseters as documented above. The patient will follow up in the neurology clinic in about 3 months, sooner if needed. [x] Pt tolerated procedure well. Pt advised to avoid exercise or strenuous physical activity for 24hours. Post treatment expectations reviewed in detail. CLEVELAND Lara CNP 09/19/24 Procedure: Trigger point injections into posterior cervical muscles. With the patient is sitting position patient received trigger point injection into the posterior cervical, shoulder muscles. The injections were performed with 9 mL's of 1% lidocaine and trace of Kenalog. Patient injections were performed as follows: 1. Right trapezius 3 trigger point injections 2. Left trapezius 3 trigger point injections 3. Right splenius capitis 1 trigger point injection 4. Left splenius capitis 1 injection 5. Right levator scapula 1 injection 6. Left levator scapula 1 injection Patient received TPI for a diagnosis of myofascial pain. The patient reports improvement of at least 60% after receiving TPI today. 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 Patient Supplied?: No documented in this [facility]01-28-2025 Miscellaneous Notes* Addendum Note - Karen Nguyen MA - 09/19/2024 8:00 AM ESTAddended by: KAREN NGUYEN on: 09/19/2024 09:57 AM Modules accepted: Orders documented in this [facility]01-28-2025 Miscellaneous Notes* Addendum Note - Karen Nguyen MA - 09/19/2024 8:00 AM ESTAddended by: KAREN NGUYEN on: 09/19/2024 09:57 AM Modules accepted: Orders * Addendum Note - CLEVELAND Patel CNP - 09/19/2024 8:00 AM ESTAddended by: MARIANA ACUÑA on: 09/25/2024 07:08 AM Modules accepted: Orders documented in this [facility]01-28-2025 Note* Addendum Note - Karen Nguyen MA - 09/19/2024 8:00 AM ESTAddended by: KAREN NGUYEN on: 09/19/2024 09:57 AM Modules accepted: [id number]* Addendum Note - Karen Nguyen MA - 09/19/2024 8:00 AM ESTAddended by: KAREN NGUYEN on: 09/19/2024 09:57 AM Modules accepted: Orders [facility]01-28-2025 Note* Addendum Note - Karen Nguyen MA - 09/19/2024 8:00 AM ESTAddended by: KAREN NGUYEN on: 09/19/2024 09:57 AM Modules accepted: Orders [id number]* Addendum Note - Karen Nguyen MA - 09/19/2024 8:00 AM ESTAddended by: KAREN NGUYEN on: 09/19/2024 09:57 AM Modules accepted: Orders [facility]01-28-2025 Note* Addendum Note - CLEVELAND Patel CNP - 09/19/2024 8:00 AM ESTAddended by: MARIANA ACUÑA on: 09/25/2024 07:08 AM Modules accepted: Orders [place] [address]-28-2025 NoteDEPARTMENT OF NEUROLOGY BOTOX PROCEDURE NOTE FOR HEADACHE Date: 09/19/24 Patient: Michelle Carlin : 1980 Diagnosis: Intractable chronic migraine without aura and without status migrainosus [G43.719] Procedure: Botox injections into the scalp and posterior cervical muscles. Prior to procedure risks, benefits, alternatives, and potential side effects were reviewed with patient. Specifically reviewed possible risk of temporary muscle weakness. All questions were answered, patient expressed understanding, verbal consent given for procedure. No numbing spray applied/removed. Botox was injected with the parameters below: With the patient in sitting position, she received Botox injections in the neck and skull muscles. Patient receive the following doses: 1. R Frontalis 10 units 2. L Frontalis 10 units 3. R Enterprise Systems Architect 10 units 4. L Enterprise Systems Architect 10 units 5. R Temporalis 20 units 6. L Temporalis 20 units 7. R Occipitalis 25 units 8. L Occipitalis 25 units 9. R Trapezious 20 units 10. L Trapezious 20 units 11. R Masseter 15 units 12. L Masseter 15 units Total units injected 200 units. Units discarded 0 units. Comments: The patient states an improvement in migraine frequency and severity of at least 75% from baseline. For the acute treatment of migraine the patient has used Nurtec with good results along with Fioricet. The patient states headaches have increased as she is overdue for Botox injections. The patient reports jaw pain is improved following Botox in the masseter muscles. Botox provided in the masseters as documented above. The patient will follow up in the neurology clinic in about 3 months, sooner if needed. [x] Pt tolerated procedure well. Pt advised to avoid exercise or strenuous physical activity for 24 hours. Post treatment expectations reviewed in detail. CLEVELAND Lara CNP 09/19/24 Procedure: Trigger point injections into posterior cervical muscles. With the patient is sitting position patient received trigger point injection into the posterior cervical, shoulder muscles. The injections were performed with 9 mL's of 1% lidocaine and trace of Kenalog. Patient injections were performed as follows: 1. Right trapezius 3 trigger point injections 2. Left trapezius 3 trigger point injections 3. Right splenius capitis 1 trigger point injection 4. Left splenius capitis 1 injection 5. Right levator scapula 1 injection 6. Left levator scapula 1 injection Patient received TPI for a diagnosis of myofascial pain. The patient reports improvement of at least 60% after receiving TPI today. CLEVELAND Lara CNP 09/19/24[facility]01-01-2025 Consult note Author Sandra Rowley [facility] Note Date/Time January 19, 2025 12:31 pm [facility] Medical Records Department [address] [place] [address] Anesthesia Postop Eval I 01/19/25 1229 MR#: [id number] Acct: [id number] Name: MICHELLE CARLIN ANN Rep #:[id number] : 1980 44 From: Sandra ZUNIGA PCP: Dr. Mark Shabazz MD Status :REG SDC Y Race: C Location: [place] [address] Anesthesia: Postop Eval I Current Vital Signs Temperature: 97.9 F Pulse Rate: 77 Blood Pressure: 121/72 Respiratory Rate: 16 Pulse Ox: 98 Oxygen Delivery Method: Room Air Assessment Airway patent: Yes Spontaneous unlabored respirations: Yes Mental status: Awake and Calm nausea: No Vomiting: No Anesthesia Complication: No Fluid Hydration Crystalloid volume administer (ml): 600 Total IV fluid infused: 600 Progress Note Anesthesia document: Postop Eval 1 completed: Yes 01/19/25 1231 <Electronically signed by Sandra Rowley CRNA> Date _ Sandra Rowley CRNA Cosigner Signature: Date CC: ~ Signed [facility] Work Phone: [phone] 882-934412-26-2024 Telephone encounter Note* Telephone Encounter - Karen Ortiz Cleaves - 08/17/2024 3:47 PM EST Name of Caller: Michelle Contact Reason for Appointment: Pt is requesting to reschedule appointment on 08/31/24 at 11:30 due to change in work schedule. 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 States it does not list fouzia on script. Entire script with FOUZIA is in epic. R: Hung up with pharmacist and called [facility] to verify speaking with [facility] pharmacist and gave requested information/ verification of script. Pt advised to call back with worsening of symptoms, concern or questions. Pt verbalized understanding. Reason for Disposition Pharmacy calling with prescription question and triager answers question Protocols used: Medication Question [id number] documented in this [facility]11-08-2024 Telephone encounter Note* Telephone Encounter - Regla Vela RN - 06/30/2024 8:04 AM EST Noted [id number] Telephone encounter Note* Telephone Encounter - Kiera Rinaldi RN - 06/29/2024 4:24 PM EST S: Michelle from [facility] calling CAC d/t medication problem B: butalbital- acetaminophen- caffeine 50-325-40 mg tablet A: pharmacist calling stating received a controlled substance script that did not go through the controlled substance part of e script. States it does not list fouzia on script. Entire script with FOUZIA is in epic. R: Hung up with pharmacist and called [facility] to verify speaking with [facility] pharmacist and gave requested information/ verification of script. Pt advised to call back with worsening of symptoms, concern or questions. Pt verbalized understanding. Reason for Disposition Pharmacy calling with prescription question and triager answers question Protocols used: Medication Question [id number] [id number] History of Present illness Narrative* Mariana Acuña APRN - SUDHAKAR - 06/29/2024 2:30 PM EST [facility] Primary Care Physician: Mark Shabazz Chief Complaint: Chief Complaint Patient presents with Procedure TPI Main Diagnosis: Diagnosis Plan 1. Myofascial pain lidocaine (Xylocaine) 1 % injection 9 mL triamcinolone acetonide (Kenalog) injection 10 mg 2. Intractable chronic migraine without aura and without status migrainosus History: given by the patient and EMR. EMR was personally reviewed prior to today's visit and included review of prior notes and intermediate communications. HPI: Ms. Michelle Carlin is a 43 y.o. female who is seen in the NEUROLOGY CLINIC of [facility] for migraines. Patient states she has suffered migraines since 2006. Patient has been on fioricet for abortive which worked for awhile but unfortunately no longer is as effective. Patient states her headaches are frontal/temporal, bilateral. She describes her pain as a dull pain. She has associated symptoms of photophobia, phonophobia, visual aura, nausea, and dizziness. Patient complains of having headaches 6 out of 10 days with 60 % of the headaches evolving into a migraine. Patient is positive for thyroid disease. She has family history of migraines with her Mother. Other family history: Cancer, diabetes, and hypertension. Patient is a non-smoker and drinks alcohol occasionally. The last visit was 06/05/2024 with this provider where the patient received Botox injections for the prevention of migraine pain. Headache characteristics: Description of pain: throbbing pain, bilateral in the frontal area, bilateral in the temporal area. Duration of individual headaches: 4-36 hour(s), frequency weekly. Associated symptoms: aura, light sensitivity, nausea, visual disturbance, and sound sensitivity. Pain relief: prescription medications - triptan therapy. Precipitating factors: stress and weather changes. INTERVAL HISTORY: Today, the patient returns for follow up of migraine control after receiving Botox injections for the prevention and treatment of migraine. The patient states Botox is helping control migraine pain. The patient reports increased neck and shoulder pain which she feels is resolved with TPI. The patient would like to receive TPI again today. TPI provided as documented below. The patient uses fioricet and ketorolac for treatment of migraine pain. The patient continues with daily headache pain. Discussed adding prednisone for 10 days to help break current migraine cycle which thepatient agreed to trying. Patient denies any side effects from medications and no new neurological d eficits. Current migraine Meds: Botox Fioricet Nurtec Side effects: No known side effects Previous medication trials: Imitrex Maxalt Emgality Phenergan Benedryl Topamax Ubrelvy Amitriptyline Nortriptyline Past Medical History: Diagnosis Date ADHD (attention deficit hyperactivity disorder) Anxiety Cluster headache Headache Headache, tension-type Migraine Numbness Trigeminal neuralgia Vision loss Past Surgical History: Procedure Laterality Date COLPOSCOPY 2014 HYSTEROSCOPY 2015 plus D&C OOPHORECTOMY Left 2009 OVARIAN CYST SURGERY Right 2013 Allergies Allergen Reactions Amoxicillin-Pot Clavulanate Other reaction(s): Hives and/or rash Hydrocodone-Acetaminophen Nausea And Vomiting Other reaction(s): Severe nausea & vomiting, Vomiting Shellfish-Derived Products Tramadol Hallucinations @HOMEMEDS@ Current Outpatient Medications Medication Sig Dispense Refill ALPRAZolam (Xanax) 0.5 MG tablet Bacillus Coagulans-Inulin (Probiotic) 1-250 BILLION-MG capsule Take by mouth. cholecalciferol (Vitamin D-3) 50 MCG (2000 UT) capsule Take by mouth. diphenhydrAMINE (Benadryl Allergy) 25 MG capsule Take 50 mg by mouth. estradiol (Estrace) 2 MG tablet Take 2 mg by mouth daily. fremanezumab (Ajovy) 225 MG/1.5ML auto-injector Inject 1 Pen (225 mg) under the skin every 30 (thirty) days. 1.5 mL 2 ketorolac (Toradol) 60 MG/2ML solution Inject 2 mL (60 mg) into the shoulder, thigh, or buttocks every 6 hours as needed (Migraine pain). Do not exceed 5 doses in one week or 10 doses in one month. 20 mL 3 levothyroxine (Synthroid, Levoxyl) 50 MCG tablet Take 50 mcg by mouth daily. omega-3 acid ethyl esters (Lovaza) 1 g capsule Take 1 g by mouth 2 times daily. ondansetron ODT (Zofran-ODT) 4 MG disintegrating tablet dissolve 1 tablet under the tongue every 8 hours if needed for nausea OR vomiting Strength: 4 mg 60 tablet 5 Syringe 25G X 1 3 ML misc 1 Syringe Once as needed (Migraine) for up to 1 dose. 20 each 3 therapeutic multivitamin-minerals (Theragran-M) tablet Take 1 tablet by mouth daily. lisdexamfetamine (Vyvanse) 30 MG capsule Take 30 mg by mouth every morning. onabotulinumtoxinA (Botox) 200 units injection Provider to inject 200 units intramuscularly every 12 weeks for migraine prevention. 1 each 3 tiZANidine (Zanaflex) 4 MG tablet Take 1 tablet (4 mg) by mouth every 8 hours as needed for muscle spasms. 0 Refill(s) 90 tablet 1 Current Facility-Administered Medications Medication Dose Route Frequency Provider Last Rate Last Admin lidocaine (Xylocaine) 1 % injection 9 mL 9 mL IntraDERmal Once CLEVELAND Patel CNP lidocaine (Xylocaine) 1 % injection 9 mL 9 mL IntraDERmal Once CLEVELAND Patel CNP triamcinolone acetonide (Kenalog) injection 10 mg 10 mg IntraMUSCular Once Mariana Acuña APRN - SUDHAKAR triamcinolone acetonide (Kenalog) injection 10 mg 10 mg IntraMUSCular Once Mariana Acuña APRN - SUDHAKAR Family History Problem Relation Name Age of Onset High Blood Pressure Mother Sara Other ([id number]) Mother Sara fibromyalgia, anxiety issues Cancer Mother Sara thyroid Diabetes Mother Sara ADD / ADHD Mother Sara Anxiety disorder Mother Sara Depression Mother Sara Fibromyalgia Mother Sara Migraines Mother Sara Neuropathy Mother Sara High Blood Pressure Father Cancer Other great Mat grandma pancreatic Cancer Paternal Grandmother breast and ovarian Cancer Other 2n cousin-paternal breast Cancer Mother's Sister breast Cancer Father's Sister skin Parkinsonism Paternal Grandfather Adam Social Connections: Not on file REVIEW OF SYSTEMS: Review of Systems Constitutional: Positive for appetite change. Negative for activity change and chills. HENT: Positive for sinus pressure. Negative for ear pain, facial swelling, mouth sores, rhinorrhea,sinus pain and tinnitus. Eyes: Positive for visual disturbance. Negative for photophobia and pain. Respiratory: Negative for cough and chest tightness. Gastrointestinal: Positive for nausea. Negative for abdominal pain and vomiting. Endocrine: Negative for cold intolerance and heat intolerance. Genitourinary: Negative for difficulty urinating. Musculoskeletal: Positive for back pain, neck pain and neck stiffness. Allergic/Immunologic: Positive for environmental allergies. Negative for food allergies. Neurological: Positive for numbness and headaches. Negative for dizziness, tremors, syncope, speechdifficulty and weakness. Hematological: Does not bruise/bleed easily. Psychiatric/Behavioral: Negative for confusion, decreased concentration and hallucinations. The patient is not nervous/anxious. All other systems reviewed and are negative. PHYSICAL EXAM: BP 116/78 (BP Location: Left arm) Pulse 72 Temp 36.6 C (97.9 F) Physical Exam Vitals and nursing note reviewed. Constitutional: Appearance: Normal appearance. She is normal weight. HENT: Head: Normocephalic. Nose: Nose normal. Eyes: Extraocular Movements: Extraocular movements intact. Conjunctiva/sclera: Conjunctivae normal. Pupils: Pupils are equal, round, and reactive to light. Pulmonary: Effort: Pulmonary effort is normal. Musculoskeletal: General: Normal range of motion. Cervical back: Normal range of motion. Skin: General: Skin is warm and dry. Neurological: General: No focal deficit present. Mental Status: She is alert and oriented to person, place, and time. Mental status is at baseline. Psychiatric: Mood and Affect: Mood normal. Behavior: Behavior normal. Thought Content: Thought content normal. Judgment: Judgment normal. Neuro: Alert and oriented x4. Language: fluent and prosodic. Content and vocabulary reasonable for age and education level. Attention and Concentration intact Fund of knowledge: Knowledge of current events demonstrated. CN II: PERRLA CN III, IV, : EOM intact, no end-gaze nystagmus CN VII: smiling and tight eye closure symmetric CN VIII: grossly intact Gait: routine gait steady ASSESSMENT: 43 y.o. female with past medical history as above who presents for follow up evaluation of migrainewith improvement on current medication regimen. IMPRESSION: Diagnosis Plan 1. Myofascial pain lidocaine (Xylocaine) 1 % injection 9 mL triamcinolone acetonide (Kenalog) injection 10 mg 2. Intractable chronic migraine without aura and without status migrainosus PLAN: 1. TPI provided as documented below. 2. Prescription for steroid taper sent to help with current headache pain. 3. Prescription refills for fioricet sent to the pharmacy. 4. Patient will follow up in about 6 weeks for Botox injections, sooner if needed. I hope that all of your questions and concerns were addressed during today's visit. Please don't hesitate to call the Department of Neurology at [phone] for any further concerns. Sincerely, CLEVELAND Lara CNP The above diagnosis and management plan were discussed at length with the patient who voiced understanding and agreed. Electronically signed by: CLEVELAND Lara CNP 06/29/2024 2:43 PM Procedure: Trigger point injections into posterior cervical muscles. With the patient is sitting position patient received trigger point injection into the posterior cervical, shoulder muscles. The injections were performed with 9 mL's of 1% lidocaine and trace of Kenalog. Patient injections were performed as follows: 1. Right trapezius 3 trigger point injections. 2. Left trapezius 3 trigger point injections. 3. Right splenius capitis 1 trigger point injection 4. Left splenius capitis 1 injection. 5. Right levator scapula 1 injection 6. Left levator scapula 1 injection Patient received TPI for a diagnosis of myofascial pain. The patient reports improvement of at least 60% after receiving TPI today. CLEVELAND Lara CNP 06/29/24 documented in this [facility]10-22-2024 [facility] Medical Records Department [address] [place] [address] History Physical Exam 06/13/24 1419 MR#: [id number] Acct: [id number] Name: MICHELLE CARLIN ANN Rep #: [id number] : 1980 43 From: Unruly Friend PCP: Dr. Mark Shabazz MD Status:[facility] Location: [place] [address] History and Physical Date of Admission: 06/13/24 MICHELLE CARLIN, is a 43 F who presents to the office today for establishment with I for complaints of sharp constant LLQ abdominal pain. 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. She reports pain has been present for almost 1 year and is concerned that endometriosis may have attached to her intestines. She reports extensive history of dealing with endometriosis: left ovary removed in 2008 and total hysterectomy performed in 2019. She was placed on estradiol as HRT so endometriosis is still a possibility. She states that she tried to go without estrogen replacement after 3 months, which caused her to have hot flashes and suicidal ideations so she went back on HRT. She reports painful urgency with diarrhea, pain is gone following BM. She reports occasional difficulty with swallowing, but relates that to anxiety. She denies difficulty chewing, reflux, heartburn, vomiting and constipation. She reports that she has nausea, poor appetite and early satiety. She does relate the nausea as a migraine aura. She reports that with some fatty food and all types of alcohol or fermented beverages, she gets a sharp gnawing pain to her abdominal RUQ that will last minutes to hours. She does report occasional abdominal RLQ pain briefly associated with intercourse. She states that she still has her gallbladder but has had her appendix removed. September 2023 she had a rectal exam under anesthesia for removal of 2 anal fibroepithelial polyps, one with chronic inflammation. ROS Const Constitutional: Positive for anorexia, fatigue, headache(s) and weight change; No fever(s) Eyes Eyes: No change in vision ENT ENT: Positive for headache(s) and difficulty swallowing; No abnormal hearing Resp Respiratory: No cough Gastro GI: Positive for abdominal pain, bloating, change in bowel habits, diarrhea, difficulty swallowing and excessive flatus; No belching, change in stool character, coffee ground emesis, constipation, cramping, heartburn, feeling full early, incontinent of stools, Vomiting blood/hematemesis, Blood in stool, loose stools, Black,tarry stools, nausea/dyspepsia, pain with swallowing, vomiting or other Genitourinary-Female: No difficulty urinating Musc Musculoskeletal: Positive for joint pain, back pain, joint swelling, muscle cramps, muscle weakness, numbness, tingling, sciatica and leg pain at night Skin Skin: No yellowing of the eye or itchy eyes Neuro Neurology: Positive for headache(s), numbness and tingling; No abnormal hearing Psych Psychiatric: Positive for anxiety and No depression Endo Endocrine: Positive for fatigue and weight change; No cold intolerance or heat intolerance Aller/Imm Allergy/Immunologic: No food intolerance or itchy eyes Byron/Lymp Hematologic/Lymphatic: Positive for easy bruising; No easy bleeding Exam Const General: cooperative, healthy appearing and comfortable Nutritional Appearance: average body habitus and well nourished Orientation: alert [facility] Head: normal to inspection Ears: hearing grossly normal bilaterally Nose: external nose normal Face and sinus: normal facial exam and face symmetric Eyes General: appearance normal, both eyes and all related structures Sclera: sclerae normal Neck Neck: normal visual inspection and full ROM Neck mass: No Chest Chest palpation inspection: normal inspection of the chest Resp Effort Inspection: normal respiratory effort, able to speak in complete sentences and symmetric chest movement GI Inspection: normal to inspection Auscultation: normal bowel sounds Skin General: no rashes or lesions noted Neuro General: patient alert, patient awake and patient oriented x3 Cognition: normal cognition Speech: speech normal Gait: normal gait Extrem General: full ROM Psych Appearance: well kempt Mood: congruent mood Assessment and Plan Assessment and Plan (1) Irritable bowel syndrome with diarrhea: Status: Acute Plan: MICHELLE CARLIN, is a 43 F who presents to the office today for establishment with [facility] for complaints of sharp constant LLQ abdominal pain. Differential diagnoses include: IBS-D, IBD, PID, endometrial invasion of intestines, cholecystitis, cholangitis, colitis. Discussed with her regarding holding HRT in order to reduce likelihood of endometriosis returning and she emphatically refused. * order blood for immunology, IBS/D panel, thyroid levels * order stool for enteric/inflammatory markers * GET for early satiety * Abd Ltd US w/elastography (more content not included)...[facility]10-14-2024 History of Present illness Narrative* Mariana Acuña, CONFIGURATION CONSULTANT - ELECTRICAL AND INSTRUMENT ENGINEER - 06/05/2024 2:00 PM EDT DEPARTMENT OF NEUROLOGY BOTOX PROCEDURE NOTE FOR HEADACHE FREE SAMPLE Date: 06/02/24 Patient: Michelle Carlin : 1980 Diagnosis: Intractable chronic migraine without aura and without status migrainosus [G43.719] Procedure: Botox injections into the scalp and posterior cervical muscles. Prior to procedure risks, benefits, alternatives, and potential side effects were reviewed with patient. Specifically reviewed possible risk of temporary muscle weakness. All questions were answered,patient expressed understanding, verbal consent given for procedure. No numbing spray applied/removed. Botox was injected with the parameters below: With the patient in sitting position, she received Botox injections in the neck and skull muscles. Patient receive the following doses: 1. R Frontalis 10 units 2. L Frontalis 10 units 3. R Enterprise Systems Architect 10 units 4. L Enterprise Systems Architect 10 units 5. R Temporalis 20 units 6. L Temporalis 20 units 7. R Occipitalis 25 units 8. L Occipitalis 25 units 9. R Trapezious 20 units 10. L Trapezious 20 units 11. R Masseter 15 units 12. L Masseter 15 units Total units injected 200 units. Units discarded 0 units. Comments: The patient states an improvement in migraine frequency and severity of at least 75% frombaseline. For the acute treatment of migraine the patient has used Nurtec with good results along with Fioricet. The patient states headaches have again increased as insurance denied Botox before thepatient first tried and failed Ajovy. The patient reports jaw pain is improved following Botox in the masseter muscles. Botox provided in the masseters as documented above. The patient was given a sample of Botox today. The patient will follow up in the neurology clinic in about 3 months, sooner ifneeded. [x] Pt tolerated procedure well. Pt advised to avoid exercise or strenuous physical activity for 24hours. Post treatment expectations reviewed in detail. CLEVELAND Lara CNP 06/02/24 * Marilee Collins MA - 06/05/2024 2:00 PM EDT Administrations This Visit onabotulinumtoxin A (BOTOX) injection 200 Units Admin Date 06/05/24 Action Given Dose 200 Units Route IntraMUSCular Site Other Administered By CLEVELAND Lara CNP Ordering Provider: CLEVELAND Lara CNP ND: [id number] Lot#: [id number] Administrative Job Titles: Allergan Patient Supplied?: SAMPLE documented in this [facility]10-14-[facility] PROCEDURE [facility] FOR HEADACHE FREE SAMPLE Date: 06/02/24 Patient: Michelle Carlin : 1980 Diagnosis: Intractable chronic migraine without aura and without status migrainosus [G43.719] Procedure: Botox injections into the scalp and posterior cervical muscles. Prior to procedure risks, benefits, alternatives, and potential side effects were reviewed with patient. Specifically reviewed possible risk of temporary muscle weakness. All questions were answered, patient expressed understanding, verbal consent given for procedure. No numbing spray applied/removed. Botox was injected with the parameters below: With the patient in sitting position, she received Botox injections in the neck and skull muscles. Patient receive the following doses: 1. R Frontalis 10 units 2. L Frontalis 10 units 3. R Enterprise Systems Architect 10 units 4. L Enterprise Systems Architect 10 units 5. R Temporalis 20 units 6. L Temporalis 20 units 7. R Occipitalis 25 units 8. L Occipitalis 25 units 9. R Trapezious 20 units 10. L Trapezious 20 units 11. R Masseter 15 units 12. L Masseter 15 units Total units injected 200 units. Units discarded 0 units. Comments: The patient states an improvement in migraine frequency and severity of at least 75% from baseline. For the acute treatment of migraine the patient has used Nurtec with good results along with Fioricet. The patient states headaches have again increased as insurance denied Botox before the patient first tried and failed Ajovy. The patient reports jaw pain is improved following Botox in the masseter muscles. Botox provided in the masseters as documented above. The patient was given a sample of Botox today. The patient will follow up in the neurology clinic in about 3 months, sooner if needed. [x] Pt tolerated procedure well. Pt advised to avoid exercise or strenuous physical activity for 24 hours. Post treatment expectations reviewed in detail. Mariana Acuña APRN - SUDHAKAR 06/02/24[facility]10-01-2024 Telephone encounter Note* Telephone Encounter - Marilee Collins MA - 05/23/2024 12:20 PM EDT [employer] Botox auth form filled out, scanned and faxed. Will await insurance decision. [id number] Miscellaneous Notes* Telephone Encounter - Marilee Collins MA - 05/23/2024 12:20 PM EDT [employer] Botox auth form filled out, scanned and faxed. Will await insurance decision. * Telephone Encounter - Marilee Collins MA - 05/01/2024 1:59 PM EDT Insurance needs a PA on Ajovy. * Telephone Encounter - Regla Vela RN - 04/28/2024 3:58 PM EDT Lmovm please release message to patient as written * Addendum Note - CLEVELAND Patel CNP - 04/28/2024 3:52 PM EDTAddended by: MARIANA ACUÑA on: 04/28/2024 03:52 PM Modules accepted: Orders * Telephone Encounter - CLEVELAND Patel CNP - 04/28/2024 3:50 PM EDT Please advise the patient she must try and fail Ajovy before approving Emgality. The prescription was sent to the pharmacy to garbage pick up man. * Telephone Encounter - Veronique Simeon - 04/27/2024 4:27 PM EDT Patient has new prescription insurance and [facility] submitted the RX Prescription PA for Botox and PA was Denied. Per new insurance, the requested medication can only be approved if the patient has trial and failure of one of the following; aimovig or ajovy Botox RX Prescription PA Denied, until pt tries and fails Aimovig OR Ajovy * Telephone Encounter - Regla Vela RN - 04/13/2024 10:56 AM EDT Noted thanks * Telephone Encounter - Veronique Simeon - 04/13/2024 9:50 AM EDT It will likely be Medical, but since its not active until 04/23/24, I cannot get the prescription insurance info yet, so I cannot say for sure. On 04/25/24 (due to being closed for holiday) [facility] can look into pharmacy benefit with new insurance. * Telephone Encounter - Darleen Guadalupe - 04/13/2024 9:22 AM EDT Name of Caller: Michelle Contact Reason for Appointment: Pt called in to update her insurance and r/s her 05/17 appt. Pt states she could make it in anytime on either 05/16 or 05/26 but would like 05/16 if possible to stay around her 12 week constantine. Pt states if these days are available she can be scheduled and a vm can be left with the details. Pt new insurance is not valid until 04/23 ans Pt states she is not sure if a new PA will be needed or not. Please advise Office Name: [facility] documented in this [facility]09-20-2024 Telephone encounter Note* Telephone Encounter - CLEVELAND Patel CNP - 05/12/2024 12:30 PM EDT Requested Prescriptions Signed Prescriptions Disp Refills fremanezumab (Ajovy) 225 MG/1.5ML auto-injector 1.5 mL 2 Sig: Inject 1 Pen (225 mg) under the skin every 30 (thirty) days. Authorizing Provider: MARIANA ACUÑA [facility] [id number] Miscellaneous Notes* Telephone Encounter - CLEVELAND Patel CNP - 05/12/2024 12:30 PM EDT Requested Prescriptions Signed Prescriptions Disp Refills fremanezumab (Ajovy) 225 MG/1.5ML auto-injector 1.5 mL 2 Sig: Inject 1 Pen (225 mg) under the skin every 30 (thirty) days. Authorizing Provider: MARIANA ACUÑA * Telephone Encounter - Wendi Starks PharmD - 05/12/2024 10:34 AM EDT Pt reached out to [facility] about Rx. Pended Rx. documented in this encounterSMagruder Memorial [id number] Telephone encounter Note* Telephone Encounter - Wendi Starks PharmD - 05/12/2024 10:34 AM EDT Pt reached out to [facility] about Rx. Pended Rx. [facility] [id number] Telephone encounter Note* Telephone Encounter - Marilee Collins MA - 05/01/2024 1:59 PM EDT Insurance needs a PA on Ajovy. [facility] [id number] Miscellaneous Notes* Telephone Encounter - Marilee Collins MA - 05/01/2024 1:59 PM EDT Insurance needs a PA on Ajovy. * Telephone Encounter - Regla Vela RN - 04/28/2024 3:58 PM EDT Lmovm please release message to patient as written * Addendum Note - CLEVELAND Patel CNP - 04/28/2024 3:52 PM EDTAddended by: MARIANA ACUÑA on: 04/28/2024 03:52 PM Modules accepted: Orders * Telephone Encounter - CLEVELAND Patel CNP - 04/28/2024 3:50 PM EDT Please advise the patient she must try and fail Ajovy before approving Emgality. The prescription was sent to the pharmacy to garbage pick up man. * Telephone Encounter - Veronique Simeon - 04/27/2024 4:27 PM EDT Patient has new prescription insurance and [facility] submitted the RX Prescription PA for Botox and PA was Denied. Per new insurance, the requested medication can only be approved if the patient has trial and failure of one of the following; aimovig or ajovy Botox RX Prescription PA Denied, until pt tries and fails Aimovig OR Ajovy * Telephone Encounter - Regla Vela RN - 04/13/2024 10:56 AM EDT Noted thanks * Telephone Encounter - Veronique Simeon - 04/13/2024 9:50 AM EDT It will likely be Medical, but since its not active until 04/23/24, I cannot get the prescription insurance info yet, so I cannot say for sure. On 04/25/24 (due to being closed for holiday) [facility] can look into pharmacy benefit with new insurance. * Telephone Encounter - Darleen Guadalupe - 04/13/2024 9:22 AM EDT Name of Caller: Michelle Contact Reason for Appointment: Pt called in to update her insurance and r/s her 05/17 appt. Pt states she could make it in anytime on either 05/16 or 05/26 but would like 05/16 if possible to stay around her 12 week constantine. Pt states if these days are available she can be scheduled and a vm can be left with the details. Pt new insurance is not valid until 04/23 ans Pt states she is not sure if a new PA will be needed or not. Please advise Office Name: [facility] documented in this [facility]09-06-2024 Miscellaneous Notes* Telephone Encounter - Regla Vela RN - 04/28/2024 3:58 PM EDT Lmovm please release message to patient as written * Addendum Note - CLEVELAND Patel CNP - 04/28/2024 3:52 PM EDTAddended by: MARIANA ACUÑA on: 04/28/2024 03:52 PM Modules accepted: Orders * Telephone Encounter - CLEVELAND Patel CNP - 04/28/2024 3:50 PM EDT Please advise the patient she must try and fail Ajovy before approving Emgality. The prescription was sent to the pharmacy to garbage pick up man. * Telephone Encounter - Veronique Simeon - 04/27/2024 4:27 PM EDT Patient has new prescription insurance and [facility] submitted the RX Prescription PA for Botox and PA was Denied. Per new insurance, the requested medication can only be approved if the patient has trial and failure of one of the following; aimovig or ajovy Botox RX Prescription PA Denied, until pt tries and fails Aimovig OR Ajovy * Telephone Encounter - Regla Vela RN - 04/13/2024 10:56 AM EDT Noted thanks * Telephone Encounter - Veronique Simeon - 04/13/2024 9:50 AM EDT It will likely be Medical, but since its not active until 04/23/24, I cannot get the prescription insurance info yet, so I cannot say for sure. On 04/25/24 (due to being closed for holiday) [facility] can look into pharmacy benefit with new insurance. * Telephone Encounter - Darleen Guadalupe - 04/13/2024 9:22 AM EDT Name of Caller: Michelle Contact Reason for Appointment: Pt called in to update her insurance and r/s her 05/17 appt. Pt states she could make it in anytime on either 05/16 or 05/26 but would like 05/16 if possible to stay around her 12 week constantine. Pt states if these days are available she can be scheduled and a vm can be left with the details. Pt new insurance is not valid until 04/23 ans Pt states she is not sure if a new PA will be needed or not. Please advise Office Name: [facility] documented in this encounterSMagruder Memorial [id number] Telephone encounter Note* Telephone Encounter - Regla Vela RN - 04/28/2024 3:58 PM EDT Lmovm please release message to patient as written [facility] [id number] Note* Addendum Note - CLEVELAND Patel CNP - 04/28/2024 3:52 PM EDTAddended by: MARIANA ACUÑA on: 04/28/2024 03:52 PM Modules accepted: Orders [facility] [id number] Note* Addendum Note - CLEVELAND Patel CNP - 04/28/2024 3:52 PM EDTAddended by: MARIANA ACUÑA on: 04/28/2024 03:52 PM Modules accepted: Orders [place] [id number] Note* Addendum Note - CLEVELAND Patel CNP - 04/28/2024 3:52 PM EDTAddended by: MARIANA ACUÑA on: 04/28/2024 03:52 PM Modules accepted: Orders [id number] Note* Addendum Note - CLEVELAND Patel CNP - 04/28/2024 3:52 PM EDTAddended by: MARIANA ACUÑA on: 04/28/2024 03:52 PM Modules accepted: Orders [place] [id number] NoteAddended by: MARIANA ACUÑA on: 04/28/2024 03:52 PM Modules accepted: [facility]09-06-2024 Telephone encounter Note* Telephone Encounter - CLEVELAND Patel CNP - 04/28/2024 3:50 PM EDT Please advise the patient she must try and fail Ajovy before approving Emgality. The prescription was sent to the pharmacy to garbage pick up man. [facility] [id number] Telephone encounter Note* Telephone Encounter - Veronique Simeon - 04/27/2024 4:27 PM EDT Patient has new prescription insurance and [facility] submitted the RX Prescription PA for Botox and PA was Denied. Per new insurance, the requested medication can only be approved if the patient has trial and failure of one of the following; aimovig or ajovy Botox RX Prescription PA Denied, until pt tries and fails Aimovig OR Ajovy [facility] [id number] Miscellaneous Notes* Telephone Encounter - Veronique Simeon - 04/27/2024 4:27 PM EDT Patient has new prescription insurance and [facility] submitted the RX Prescription PA for Botox and PA was Denied. Per new insurance, the requested medication can only be approved if the patient has trial and failure of one of the following; aimovig or ajovy Botox RX Prescription PA Denied, until pt tries and fails Aimovig OR Ajovy * Telephone Encounter - Regla Vela RN - 04/13/2024 10:56 AM EDT Noted thanks * Telephone Encounter - Veronique Simeon - 04/13/2024 9:50 AM EDT It will likely be Medical, but since its not active until 04/23/24, I cannot get the prescription insurance info yet, so I cannot say for sure. On 04/25/24 (due to being closed for holiday) [facility] can look into pharmacy benefit with new insurance. * Telephone Encounter - Darleen Guadalupe - 04/13/2024 9:22 AM EDT Name of Caller: Michelle Contact Reason for Appointment: Pt called in to update her insurance and r/s her 05/17 appt. Pt states she could make it in anytime on either 05/16 or 05/26 but would like 05/16 if possible to stay around her 12 week constantine. Pt states if these days are available she can be scheduled and a vm can be left with the details. Pt new insurance is not valid until 04/23 ans Pt states she is not sure if a new PA will be needed or not. Please advise Office Name: [facility] documented in this [facility]08-22-2024 Telephone encounter Note* Telephone Encounter - Regla Vela RN - 04/13/2024 10:56 AM EDT Noted thanks [facility] [id number] Miscellaneous Notes* Telephone Encounter - Regla Vela RN - 04/13/2024 10:56 AM EDT Noted thanks * Telephone Encounter - Veronique Simeon - 04/13/2024 9:50 AM EDT It will likely be Medical, but since its not active until 04/23/24, I cannot get the prescription insurance info yet, so I cannot say for sure. On 04/25/24 (due to being closed for holiday) [facility] can look into pharmacy benefit with new insurance. * Telephone Encounter - Darleen Guadalupe - 04/13/2024 9:22 AM EDT Name of Caller: Michelle Contact Reason for Appointment: Pt called in to update her insurance and r/s her 05/17 appt. Pt states she could make it in anytime on either 05/16 or 05/26 but would like 05/16 if possible to stay around her 12 week constantine. Pt states if these days are available she can be scheduled and a vm can be left with the details. Pt new insurance is not valid until 04/23 ans Pt states she is not sure if a new PA will be needed or not. Please advise Office Name: [facility] documented in this [place] [id number] Telephone encounter Note* Telephone Encounter - Veronique Cailin - 04/13/2024 9:50 AM EDT It will likely be Medical, but since its not active until 04/23/24, I cannot get the prescription insurance info yet, so I cannot say for sure. On 04/25/24 (due to being closed for holiday) [facility] can look into pharmacy benefit with new insurance. [facility] [id number] Telephone encounter Note* Telephone Encounter - Darleen Guadalupe - 04/13/2024 9:22 AM EDT Name of Caller: Michelle Contact Reason for Appointment: Pt called in to update her insurance and r/s her 05/17 appt. Pt states she could make it in anytime on either 05/16 or 05/26 but would like 05/16 if possible to stay around her 12 week constantine. Pt states if these days are available she can be scheduled and a vm can be left with the details. Pt new insurance is not valid until 04/23 ans Pt states she is not sure if a new PA will be needed or not. Please advise Office Name: [facility] [id number] History of Present illness Narrative* CLEVELAND Patel CNP - 02/16/2024 9:00 AM EDT DEPARTMENT OF NEUROLOGY BOTOX PROCEDURE NOTE FOR HEADACHE Date: 02/16/24 Patient: Michelle Carlin : 1980 Diagnosis: Intractable chronic migraine without aura and without status migrainosus [G43.719] Procedure: Botox injections into the scalp and posterior cervical muscles. Prior to procedure risks, benefits, alternatives, and potential side effects were reviewed with patient. Specifically reviewed possible risk of temporary muscle weakness. All questions were answered,patient expressed understanding, verbal consent given for procedure. No numbing spray applied/removed. Botox was injected with the parameters below: With the patient in sitting position, she received Botox injections in the neck and skull muscles. Patient receive the following doses: 1. R Frontalis 10 units 2. L Frontalis 10 units 3. R Enterprise Systems Architect 10 units 4. L Enterprise Systems Architect 10 units 5. R Temporalis 20 units 6. L Temporalis 20 units 7. R Occipitalis 25 units 8. L Occipitalis 25 units 9. R Trapezious 20 units 10. L Trapezious 20 units 11. R Masseter 15 units 12. L Masseter 15 units Total units injected 200 units. Units discarded 0 units. Comments: The patient states an improvement in migraine frequency and severity of at least 75% frombaseline. For the acute treatment of migraine the patient has used Nurtec with good results along with Fioricet. The patient states headaches have again increased as she is due again for Botox. The patient reports jaw pain is improved following Botox in the masseter muscles. Botox provided in the masseters as documented above. The patient reports improvement in neck and shoulder pain following treatment with trigger point injections and is requesting treatment today as well. TPI provided as documented below. The patient will follow up in the neurology clinic in about 3 months, sooner if needed. [x] Pt tolerated procedure well. Pt advised to avoid exercise or strenuous physical activity for 24hours. Post treatment expectations reviewed in detail. CLEVELAND Lara CNP 02/16/24 Procedure: Trigger point injections into posterior cervical muscles. With the patient is sitting position patient received trigger point injection into the posterior cervical, shoulder muscles. The injections were performed with 9 mL's of 1% lidocaine and trace of Kenalog. Patient injections were performed as follows: 1. Right trapezius 3 trigger point injections. 2. Left trapezius 3 trigger point injections. 3. Right splenius capitis 1 trigger point injection 4. Left splenius capitis 1 injection. 5. Right levator scapula 1 injection 6. Left levator scapula 1 injection Patient received TPI for a diagnosis of myofascial pain. The patient reports improvement of at least 60% after receiving TPI today. CLEVELAND Lara CNP 02/16/24 * Veronique Pike MA - 02/16/2024 9:00 AM EDT Administrations This Visit onabotulinumtoxin A (BOTOX) injection 200 Units Admin Date 02/16/24 Action Given Dose 200 Units Route IntraMUSCular Site Other Administered By CLEVELAND Lara CNP Ordering Provider: CLEVELAND Lara CNP ND: [id number] Lot#: [id number] Administrative Job Titles: Allergan Patient Supplied?: No documented in this [facility]06-26-2024 NoteDEPARTMENT OF NEUROLOGY BOTOX PROCEDURE NOTE FOR HEADACHE Date: 02/16/24 Patient: Michelle Carlin : 1980 Diagnosis: Intractable chronic migraine without aura and without status migrainosus [G43.719] Procedure: Botox injections into the scalp and posterior cervical muscles. Prior to procedure risks, benefits, alternatives, and potential side effects were reviewed with patient. Specifically reviewed possible risk of temporary muscle weakness. All questions were answered, patient expressed understanding, verbal consent given for procedure. No numbing spray applied/removed. Botox was injected with the parameters below: With the patient in sitting position, she received Botox injections in the neck and skull muscles. Patient receive the following doses: 1. R Frontalis 10 units 2. L Frontalis 10 units 3. R Enterprise Systems Architect 10 units 4. L Enterprise Systems Architect 10 units 5. R Temporalis 20 units 6. L Temporalis 20 units 7. R Occipitalis 25 units 8. L Occipitalis 25 units 9. R Trapezious 20 units 10. L Trapezious 20 units 11. R Masseter 15 units 12. L Masseter 15 units Total units injected 200 units. Units discarded 0 units. Comments: The patient states an improvement in migraine frequency and severity of at least 75% from baseline. For the acute treatment of migraine the patient has used Nurtec with good results along with Fioricet. The patient states headaches have again increased as she is due again for Botox. The patient reports jaw pain is improved following Botox in the masseter muscles. Botox provided in the masseters as documented above. The patient reports improvement in neck and shoulder pain following treatment with trigger point injections and is requesting treatment today as well. TPI provided as documented below. The patient will follow up in the neurology clinic in about 3 months, sooner if needed. [x] Pt tolerated procedure well. Pt advised to avoid exercise or strenuous physical activity for 24 hours. Post treatment expectations reviewed in detail. CLEVELAND Lara CNP 02/16/24 Procedure: Trigger point injections into posterior cervical muscles. With the patient is sitting position patient received trigger point injection into the posterior cervical, shoulder muscles. The injections were performed with 9 mL's of 1% lidocaine and trace of Kenalog. Patient injections were performed as follows: 1. Right trapezius 3 trigger point injections. 2. Left trapezius 3 trigger point injections. 3. Right splenius capitis 1 trigger point injection 4. Left splenius capitis 1 injection. 5. Right levator scapula 1 injection 6. Left levator scapula 1 injection Patient received TPI for a diagnosis of myofascial pain. The patient reports improvement of at least 60% after receiving TPI today. CLEVELAND Lara CNP 02/16/24[facility]ly [facility]05-14-2024 History of Present illness Narrative* CLEVELAND Patel CNP - 01/04/2024 10:00 AM EDT [facility]IENT [facility]IC Primary Care Physician: Mark Shabazz Chief Complaint: Chief Complaint Patient presents with Procedure TPI Main Diagnosis: Diagnosis Plan 1. Myofascial pain lidocaine (Xylocaine) 1 % injection 9 mL triamcinolone acetonide (Kenalog) injection 10 mg 2. Chronic migraine without aura, intractable, without status migrainosus methylPREDNISolone (Medrol Dospak) 4 MG tablets sijpidxsvr-bofyebhukjkou-wgsvtfzt 50-325-40 MG tablet History: given by the patient and EMR. EMR was personally reviewed prior to today's visit and included review of prior notes and intermediate communications. HPI: Ms. Michelle Carlin is a 43 y.o. female who is seen in the NEUROLOGY CLINIC of [facility] for migraines. Patient states she has suffered migraines since 2006. Patient has been on fioricet for abortive which worked for awhile but unfortunately no longer is as effective. She was placed on Depakoteover 6 months ago as preventative and states that this worked slightly at first but no longer is working to prevent them. Patient states her headaches are frontal/temporal, bilateral. She describes her pain as a dull pain. She has associated symptoms of photophobia, phonophobia, visual aura, nausea, and dizziness. Patient complains of having headaches 6 out of 10 days with 60 % of the headaches evolving into a migraine. Patient states she turned 41 and underwent botox injections (cosmetically) and she states she noticed that this improved her migraines. Patient is positive for thyroid disease. She has family history of migraines with her Mother. Other family history: Cancer, diabetes, and hypertension. Patient is a non-smoker and drinks alcohol occasionally. The last visit was 11/23/2023 with this provider where the patient received Botox injections and TPI for the prevention of migraine pain and treatment of myofascial pain. Headache characteristics: Description of pain: throbbing pain, bilateral in the frontal area, bilateral in the temporal area. Duration of individual headaches: 4-36 hour(s), frequency weekly. Associated symptoms: aura, light sensitivity, nausea, visual disturbance, and sound sensitivity. Pain relief: prescription medications - triptan therapy. Precipitating factors: stress and weather changes. INTERVAL HISTORY: Today, the patient returns for follow up of migraine control after receiving Botox injections and trigger point injections for the prevention and treatment of migraine. The patient states Botox is helping control migraine pain. The patient reports increased neck and shoulder pain which she feels is resolved with TPI. The patient would like to receive TPI again today. TPI provided as documented below. The patient reports a recent sinus infection and is finishing up antibiotics but continues to experience pressure in eyes and face. Advised the patient a prescription for a steroid taper would be sent to help with symptoms. The patient agreed and verbalized understanding. Patient denies any side effects from medications. Current migraine Meds: Botox Fioricet Nurtec Side effects: No known side effects Previous medication trials: Imitrex Maxalt Emgality Phenergan Benedryl Topamax Ubrelvy Amitriptyline Nortriptyline Past Medical History: Diagnosis Date ADHD (attention deficit hyperactivity disorder) Anxiety Cluster headache Headache Headache, tension-type Migraine Numbness Trigeminal neuralgia Vision loss Past Surgical History: Procedure Laterality Date COLPOSCOPY 2014 HYSTEROSCOPY 2015 plus D&C OOPHORECTOMY Left 2009 OVARIAN CYST SURGERY Right 2013 Allergies Allergen Reactions Amoxicillin-Pot Clavulanate Other reaction(s): Hives and/or rash Hydrocodone-Acetaminophen Nausea And Vomiting Other reaction(s): Severe nausea & vomiting, Vomiting Tramadol Hallucinations @HOMEMEDS@ Current Outpatient Medications Medication Sig Dispense Refill ALPRAZolam (Xanax) 0.5 MG tablet Bacillus Coagulans-Inulin (Probiotic) 1-250 BILLION-MG capsule Take by mouth. cholecalciferol (Vitamin D-3) 50 MCG (2000 UT) capsule Take by mouth. diphenhydrAMINE (Benadryl Allergy) 25 MG capsule Take 50 mg by mouth. estradiol (Estrace) 2 MG tablet Take 2 mg by mouth daily. ketorolac (Toradol) 60 MG/2ML solution Inject 2 mL (60 mg) into the shoulder, thigh, or buttocks every 6 hours as needed (Migraine pain). Do not exceed 5 doses in one week or 10 doses in one month. 20 mL 3 levothyroxine (Synthroid, Levoxyl) 50 MCG tablet Take 50 mcg by mouth daily. lisdexamfetamine (Vyvanse) 30 MG capsule Take 30 mg by mouth every morning. ondansetron ODT (Zofran-ODT) 4 MG disintegrating tablet dissolve 1 tablet under the tongue every 8 hours if needed for nausea OR vomiting Strength: 4 mg 60 tablet 2 therapeutic multivitamin-minerals (Theragran-M) tablet Take 1 tablet by mouth daily. tiZANidine (Zanaflex) 4 MG tablet Take 1 tablet (4 mg) by mouth every 8 hours as needed for muscle spasms. 0 Refill(s) 90 tablet 1 orkdnvlekd-mbfcwxmzkejds-xdtzkjhd 50-325-40 MG tablet TAKE 1 TABLET BY MOUTH EVERY 6 HOURS IF NEEDED FOR HEADACHE. 90 day supply 130 tablet 1 methylPREDNISolone (Medrol Dospak) 4 MG tablets Follow schedule on package instructions 21 tablet 0 Rimegepant Sulfate (Nurtec) 75 MG tablet dispersible TAKE 75 MG BY MOUTH ONCE EVERY OTHER DAY (MIGRAINE) (Patient not taking: Reported on 01/04/2024) 16 tablet 5 Syringe 25G X 1 3 ML misc 1 Syringe Once as needed (Migraine) for up to 1 dose. 20 each 3 Current Facility-Administered Medications Medication Dose Route Frequency Provider Last Rate Last Admin lidocaine (Xylocaine) 1 % injection 9 mL 9 mL IntraDERmal Once CLEVELAND Patel CNP triamcinolone acetonide (Kenalog) injection 10 mg 10 mg IntraMUSCular Once CLEVELAND Patel CNP Family History Problem Relation Name Age of Onset High Blood Pressure Mother Sara Other ([id number]) Mother Sara fibromyalgia, anxiety issues Cancer Mother Sara thyroid Diabetes Mother Sara ADD / ADHD Mother Sara Anxiety disorder Mother Sara Depression Mother Sara Fibromyalgia Mother Sara Migraines Mother Sara Neuropathy Mother Sara High Blood Pressure Father Cancer Other great Mat grandma pancreatic Cancer Paternal Grandmother breast and ovarian Cancer Other 2n cousin-paternal breast Cancer Mother's Sister breast Cancer Father's Sister skin Parkinsonism Paternal Grandfather Adam Social Connections: Not on file REVIEW OF SYSTEMS: Review of Systems Constitutional: Positive for appetite change. Negative for activity change and chills. HENT: Positive for sinus pressure. Negative for ear pain, facial swelling, mouth sores, rhinorrhea,sinus pain and tinnitus. Eyes: Positive for visual disturbance. Negative for photophobia and pain. Respiratory: Negative for cough and chest tightness. Gastrointestinal: Positive for nausea. Negative for abdominal pain and vomiting. Endocrine: Negative for cold intolerance and heat intolerance. Genitourinary: Negative for difficulty urinating. Musculoskeletal: Positive for back pain, neck pain and neck stiffness. Allergic/Immunologic: Positive for environmental allergies. Negative for food allergies. Neurological: Positive for numbness and headaches. Negative for dizziness, tremors, syncope, speechdifficulty and weakness. Hematological: Does not bruise/bleed easily. Psychiatric/Behavioral: Negative for confusion, decreased concentration and hallucinations. The patient is not nervous/anxious. All other systems reviewed and are negative. PHYSICAL EXAM: BP 130/83 (BP Location: Left arm) Pulse 76 Temp 36.7 C (98.1 F) Physical Exam Vitals and nursing note reviewed. Constitutional: Appearance: Normal appearance. She is normal weight. HENT: Head: Normocephalic. Nose: Nose normal. Eyes: Extraocular Movements: Extraocular movements intact. Conjunctiva/sclera: Conjunctivae normal. Pupils: Pupils are equal, round, and reactive to light. Pulmonary: Effort: Pulmonary effort is normal. Musculoskeletal: General: Normal range of motion. Cervical back: Normal range of motion. Skin: General: Skin is warm and dry. Neurological: General: No focal deficit present. Mental Status: She is alert and oriented to person, place, and time. Mental status is at baseline. Psychiatric: Mood and Affect: Mood normal. Behavior: Behavior normal. Thought Content: Thought content normal. Judgment: Judgment normal. Neuro: Alert and oriented x4. Language: fluent and prosodic. Content and vocabulary reasonable for age and education level. Attention and Concentration intact Fund of knowledge: Knowledge of current events demonstrated. CN II: PERRLA CN III, IV, : EOM intact, no end-gaze nystagmus CN VII: smiling and tight eye closure symmetric CN VIII: grossly intact Gait: routine gait steady ASSESSMENT: 43 y.o. female with past medical history as above who presents for follow up evaluation of migrainewith improvement on current medication regimen. IMPRESSION: Diagnosis Plan 1. Myofascial pain lidocaine (Xylocaine) 1 % injection 9 mL triamcinolone acetonide (Kenalog) injection 10 mg 2. Chronic migraine without aura, intractable, without status migrainosus methylPREDNISolone (Medrol Dospak) 4 MG tablets xmviqpwgmp-uehzmekeftokx-pgltvyzz 50-325-40 MG tablet PLAN: 1. TPI provided as documented below. 2. Prescription for steroid taper sent to help with current headache pain. 3. Prescription refills for fioricet sent to the pharmacy. 4. Patient will follow up in about 6 weeks for Botox injections, sooner if needed. I hope that all of your questions and concerns were addressed during today's visit. Please don't hesitate to call the Department of Neurology at [phone] for any further concerns. Sincerely, CLEVELAND Patel CNP The above diagnosis and management plan were discussed at length with the patient who voiced understanding and agreed. Electronically signed by: CLEVELAND Patel CNP 01/04/2024 5:02 PM Procedure: Trigger point injections into posterior cervical muscles. With the patient is sitting position patient received trigger point injection into the posterior cervical, shoulder muscles. The injections were performed with 9 mL's of 1% lidocaine and trace of Kenalog. Patient injections were performed as follows: 1. Right trapezius 3 trigger point injections. 2. Left trapezius 3 trigger point injections. 3. Right splenius capitis 1 trigger point injection 4. Left splenius capitis 1 injection. 5. Right levator scapula 1 injection 6. Left levator scapula 1 injection Patient received TPI for a diagnosis of myofascial pain. The patient reports improvement of at least 60% after receiving TPI today. CLEVELAND Patel CNP 01/04/24 documented in this [facility]04-02-2024 History of Present illness Narrative* CLEVELAND Patel CNP - 11/23/2023 1:30 PM EDT DEPARTMENT OF NEUROLOGY BOTOX PROCEDURE NOTE FOR HEADACHE Date: 11/23/23 Patient: Michelle Carlin : 1980 Diagnosis: Chronic migraine without aura, intractable, without status migrainosus [G43.719] Procedure: Botox injections into the scalp and posterior cervical muscles. Prior to procedure risks, benefits, alternatives, and potential side effects were reviewed with patient. Specifically reviewed possible risk of temporary muscle weakness. All questions were answered,patient expressed understanding, verbal consent given for procedure. No numbing spray applied/removed. Botox was injected with the parameters below: With the patient in sitting position, she received Botox injections in the neck and skull muscles. Patient receive the following doses: 1. R Frontalis 10 units 2. L Frontalis 10 units 3. R Enterprise Systems Architect 10 units 4. L Enterprise Systems Architect 10 units 5. R Temporalis 20 units 6. L Temporalis 20 units 7. R Occipitalis 25 units 8. L Occipitalis 25 units 9. R Trapezious 20 units 10. L Trapezious 20 units 11. R Masseter 15 units 12. L Masseter 15 units Total units injected 200 units. Units discarded 0 units. Comments: The patient states an improvement in migraine frequency and severity of at least 75% frombaseline. For the acute treatment of migraine the patient has used Nurtec with good results along with Fioricet. The patient states headaches have again increased as she is due again for Botox. The patient reports jaw pain is improved following Botox in the masseter muscles. Botox provided in the masseters as documented. The patient reports improvement in neck and shoulder pain following treatment with trigger point injections and is requesting treatment today as well. TPI provided as documented below. The patient will follow up in the neurology clinic in about 3 months, sooner if needed. [x] Pt tolerated procedure well. Pt advised to avoid exercise or strenuous physical activity for 24hours. Post treatment expectations reviewed in detail. CLEVELAND Patel CNP 11/23/23 Procedure: Trigger point injections into posterior cervical muscles. With the patient is sitting position patient received trigger point injection into the posterior cervical, shoulder muscles. The injections were performed with 9 mL's of 1% lidocaine and trace of Kenalog. Patient injections were performed as follows: 1. Right trapezius 3 trigger point injections. 2. Left trapezius 3 trigger point injections. 3. Right splenius capitis 1 trigger point injection 4. Left splenius capitis 1 injection. 5. Right levator scapula 1 injection 6. Left levator scapula 1 injection. CLEVELAND Patel CNP 11/23/23 * Marilee Collins MA - 11/23/2023 1:30 PM EDT Administrations This Visit onabotulinumtoxin A (BOTOX) injection 200 Units Admin Date 11/23/23 Action Given Dose 200 Units Route IntraMUSCular Site Other Administered By CLEVELAND Patel CNP Ordering Provider: CLEVELAND Patel CNP NDC: [id number] Lot#: [id number] Administrative Job Titles: [employer] Patient Supplied?: No documented in this [facility]02-22-2024 Telephone encounter Note* Telephone Encounter - CLEVELAND Patel CNP - 10/14/2023 3:33 PM EST Requested Prescriptions Signed Prescriptions Disp Refills Rimegepant Sulfate (Nurtec) 75 MG tablet dispersible 16 tablet 5 Sig: TAKE 75 MG BY MOUTH ONCE EVERY OTHER DAY (MIGRAINE) Authorizing Provider: MARIANA ACUÑA [id number] Miscellaneous Notes* Telephone Encounter - CLEVELAND Patel CNP - 10/14/2023 3:33 PM EST Requested Prescriptions Signed Prescriptions Disp Refills Rimegepant Sulfate (Nurtec) 75 MG tablet dispersible 16 tablet 5 Sig: TAKE 75 MG BY MOUTH ONCE EVERY OTHER DAY (MIGRAINE) Authorizing Provider: MARIANA ACUÑA documented in this [facility]02-21-2024 Hospital Discharge instructions Patient Education 10/13/2023 13:04:08 1- [facility] General Discharge Guidelines (05/07/2023) (CUSTOM) SUGAR SAME DAY SURGERY DISCHARGE INSTRUCTIONS PLEASE FOLLOW THE INSTRUCTIONS BELOW MARKED WITH AN X: __X_Regular Diet: Start with clear liquids, then soup and crackers. Gradually add other foods unless otherwise instructed by your surgeon __X_Drink extra fluids ACTIVTY: __X_Since you have had anesthetic, it would be advisable not to drive, drink alcohol, or make majordecisions over the next 24 hours. You may require more rest tonight and tomorrow __X_Do not drive vehicle while taking narcotics and as directed by your Surgeon ____Restrict activity as follows: ____Do not have sexual intercourse. Nothing in the vagina-No tampons or Douching ____No heavy lifting, pushing, or straining ____Elevate operative limb ____Ice as directed __X_Follow all written and verbal instructions given to you by your Doctor ____Other: BATHING/SHOWERING ____Sponge bathe until office visit. ____Sitting in tub of warm water may relieve discomfort ____May tub bathe ____May shower in 24-48 hours with clean linen unless otherwise instructed by your Doctor DRESSING: ____Keep operative area clean and dry ____Check the operative area for signs of bleeding. Apply pressure to the bleeding site if necessary. ____Change drip pad as needed ____Wear scrotal support for comfort WATCH FOR SIGNS OF INFECTION: (Usually appears 36-48 hours after surgery) Increased temperature (101 degrees Fahrenheit or higher) Redness or swelling Increased pain Foul odor or drainage If you have any questions, please call your doctor at the number listed on your follow-up instructions. Follow Up Care 09/24/2023 10:21:45 With:ROXANA CLARK MD, Surgery Address: [address] [place] [address] [address] [place] [address]- [phone] When: Unknown Comments:Follow-up as scheduled [facility] 02-21-2024 Summary of episode note Discharge Instructions Thank you for allowing [place] [facility] to assist you with your healthcare needs. The following is importantdischarge information regarding your hospital visit. Your Care Team MARK SHABAZZ MD Your Diagnosis Post-op pain What to do next Instructions From Your Doctor DISCHARGE INSTRUCTIONS ANORECTAL PROCEDURES WHAT TO LOOK FOR Check for excessive bleeding. A small amount of bleeding and drainage, particularly with bowel movements, is normal for the first week or two after surgery. On rare occasions, an excessive amount of bleeding (a cup or more) may occur 3- 10 days post-op for no apparent reason. This should be reported immediately day or night to our office. You may be asked to return to our office or go to the emergency room for evaluation and treatment. Difficulty with urination. If you experience difficulty with urination, attempting to urinate in a warm bath may ease this. If you remain unable to urinate, go to the nearest emergency room for treatment. COMPLICATIONS TO WATCH FOR If you experience any of the following please call your doctor: Fever over 101 Pain not relieved by medication Rash or hives after taking medication Continued nausea or vomiting Increased redness, warmth, hardness around operative area Excessive bleeding from operative site or blood-soaked dressing Inability to urinate Excessive swelling around operative area BOWEL CARE A fiber supplement or a laxative like over the counter may be recommended as part of your post-op regimen to aid you in moving your bowels. Everybody s system is different, and narcotic pain medicines have a different effect on different people. It is best if you take what you need based on your regular bowel pattern, and the amount of narcotics you are taking. People who have small surgeries that don t require much pain medication may not need any laxatives at all. People with baseline constipation or who are taking more narcotics should take the Miralax. If constipation persists, an additional laxative such as Milk of Magnesia should be used and can be repeated as necessary. If this is not effective, you may use a Fleet enema and repeat as necessary. Remember to drink adequate fluids to aid with regularity. If you have questions about your bowel regimen, please call. ACTIVITY Avoid strenuous activity during the next 1-2 weeks. Fatigue is very common after surgery and with ample rest, this will improve each day. DIET Resume a regular diet as soon as you are able, including plenty of fluids. Avoid foods you know are constipating for you. OPERATIVE SITE You can use non-sterile gauze pads or unscented feminine hygiene pads to control any drainage you might have after surgery. Starting the day of surgery, a lukewarm sitz bath (sitting in the tub or using a purchased Sitz bath from a pharmacy, [employer] supply, or from [employer]) or hand-held shower should be taken 2-3 times a day for approximately 10 minutes, especially after bowel movements. This aids in hygiene, pain control and healing. It is normal to experience swelling around the anal area after surgery, this will improve over time. It can take as long as 6 or more weeks for wounds there to heal. PAIN MEDICATION You will be prescribed a narcotic pain medication which you should use as directed. You should adjust your intake as needed based on pain level, and try to get off narcotics as soon as you are able. Your prescription may contain Acetaminophen (Tylenol), and if so, additional Tylenol should not be taken to equal a dose of more than 3000mg per day. Ibuprofen or other over the counter anti-inflammatory medicines (NSAIDS) like Motrin or Aleve can be taken any time after surgery unless specifically instructed not to. A dose of 400-600mg of ibuprofen every 6 hours is a helpful adjunct to the narcotic pain medications and these can be alternated. OTHER MEDICATIONS You should resume your regular medications (except blood thinners or aspirin) as soon as you are able. Do not take aspirin or aspirin-containing products for one week after surgery unless prescribed by the MD. If rectal itching occurs, you may use over the counter hydrocortisone cream or simple barrier cream like A&D if you develop a rash. Scheduled Follow-Up Appointments Appointment Type When With Where Contact InformationGS OV Post Op 11/16/2023 09:30 AM ROXANA PAGE MD [facility] Surgery Follow Up Appointments Follow Up with ROXANA CLARK MD, Surgery When Why: Follow-up as scheduled Where: [address] [facility] [address] [place] [address]- [phone] The Following Activity and Diet Have Been Ordered for You Discharge Activity - Ordered -- Follow the post-operative/post-procedure activity instructions provided by your physician's office., 10/13/23 12:54:00 EST Discharge Diet - Ordered -- Follow the post-operative/post-procedure diet instructions provided by your physician's office.,10/13/23 12:54:00 EST The Following Equipment Has Been Ordered for You Discharge Home Equipment Discharge Wound Care - Ordered -- Follow the post-operative/post-procedure wound care instructions provided by your physician's office., 10/13/23 12:54:00 EST Allergies Vicodin amoxicillin (rash) shellfish (Itching) traMADol Medications Please ask your primary doctor or pharmacist before taking any other medication not listed, including over the counter drugs, herbal medications, vitamins and or supplements as they may interact withyour home medications. What How Much When Why Instructions Last Dose New oxyCODONE (oxyCODONE 5 mg oral tablet ( IMMEDIATErelease )) 1 tab(s) by mouth Every 6 hours as needed for for pain Post-op pain Duration: 7 Days Pickup at [facility] Unchanged APAP/ butalbital/ caffeine (APAP/ butalbital/ caffeine 325-50-40 mg oral tablet (Fioricet)) 1 tab(s) by mouth Daily at bedtime Unchanged cholecalciferol (Vitamin D3 50 mcg (2000 intl units) oral capsule) 2 cap by mouth Once a day (in the morning) Unchanged diphenhydrAMINE (Benadryl 25 mg oral capsule) 1 cap by mouth Daily at bedtime Unchanged estradiol (estradiol 2 mg oral tablet) 1 tab(s) by mouth Once a day (in the morning) Unchanged levothyroxine (levothyroxine 50 mcg (0.05 mg) oral tablet) 1 tab(s) by mouth Once a day (in the morning) Unchanged lisdexamfetamine (Vyvanse 30 mg oral capsule) 1 cap by mouth Once a day (in the morning) Unchanged multivitamin (Multivitamin) 1 tab(s) by mouth Once a day (in the morning) Unchanged onabotulinumtoxinA (Botox 100 units injection) 1.25 unit(s) Intramuscular Every 3 months Unchanged tiZANidine (tiZANidine 4 mg oral tablet) 1 tab(s) by mouth Daily at bedtime Pharmacy Information [facility]: [address] [place] [address] [phone] Please take this list to your next doctor s visit. Bring all medications you take, including over the counter medications, herbals and other supplements with you to your doctor s visit. Patients and families are reminded to discard old lists and to update any records with all medication providers or retail pharmacies. Education Materials [facility] SAME DAY SURGERY DISCHARGE INSTRUCTIONS PLEASE FOLLOW THE INSTRUCTIONS BELOW MARKED WITH AN X: __X_Regular Diet: Start with clear liquids, then soup and crackers. Gradually add other foods unless otherwise instructed by your surgeon __X_Drink extra fluids ACTIVTY: __X_Since you have had anesthetic, it would be advisable not to drive, drink alcohol, or make majordecisions over the next 24 hours. You may require more rest tonight and tomorrow __X_Do not drive vehicle while taking narcotics and as directed by your Surgeon ____Restrict activity as follows: ____Do not have sexual intercourse. Nothing in the vagina-No tampons or Douching ____No heavy lifting, pushing, or straining ____Elevate operative limb ____Ice as directed __X_Follow all written and verbal instructions given to you by your Doctor ____Other: BATHING/SHOWERING ____Sponge bathe until office visit. ____Sitting in tub of warm water may relieve discomfort ____May tub bathe ____May shower in 24-48 hours with clean linen unless otherwise instructed by your Doctor DRESSING: ____Keep operative area clean and dry ____Check the operative area for signs of bleeding. Apply pressure to the bleeding site if necessary. ____Change drip pad as needed ____Wear scrotal support for comfort WATCH FOR SIGNS OF INFECTION: (Usually appears 36-48 hours after surgery) Increased temperature (101 degrees Fahrenheit or higher) Redness or swelling Increased pain Foul odor or drainage If you have any questions, please call your doctor at the number listed on your follow-up instructions. Additional Information VACCINATE! IT SAVES LIVES! Members of the community who have not yet received the COVID-19 vaccine and would like to receive it can visit one of [facility] vaccine clinics. There are many vaccine clinic locations within the [facility]. For locations and available times, please visit [email or web address] It is important to note that some COVID mobile vaccine clinics are held outdoors and may be canceled in rainy or stormy conditions. To learn more about pediatric vaccinations (ages 5-11), we invite you to visit the [facility] webpage. [email or web address] learn more about the COVID-19 vaccine, we invite you to visit the CDC website for a list of frequently asked questions.https://www.cdc.gov/coronavirus/2019-ncov/vaccines/faq.html [email or web address] Patient Portal Access Instructions: Stay connected with your healthcare team and access your personal medical information anytime with the [email or web address] Patient Portal. Please follow the directions below to create your [email or web address] account: 1.Access the email account you provided upon registration to the hospital/physician office.2.Look for an invitation email from [facility].3.Open the email and access the invitation link: AcceptInvitation to [facility].4.Fill in the required lópez to create your account. To access your account, visit [employer]lica. Click the blue button labeled Access Patient Portal and then log in with the username and password that you created in the steps above. You will be able to view your test results, lab results, a summary of your visits, upcoming appointments and more. There is also a convenient messaging option where you can send secure messages to your p rovider. In addition, you will have the ability to download any documents or summaries to your computer and/or send the information securely to a physician. Remember that your healthcare information is confidential, so carefully consider who you will allowto register on the [facility] for access to your information. You can also access the [facility] on the [facility] hanane. Simply click on Patient Portal and then log into your account. If you would like to receive a full copy of your medical records, please contact the [facility] Medical Records Department by calling [phone], Wednesday through Wednesday between 8 a.m. and 4:30 p.m. HOW TO SAFELY DISPOSE OF PRESCRIPTION MEDICATIONS Please use one of the following methods to safely dispose of your unused medications. 1.Use a drug disposal kit: the drug disposal pouch allows you to safely discard your old and unuseddrugs. Ask your nurse to give you one when you are discharged.2.Visit a local take-back location: Many local pharmacies and police departments have programs that collect old and unwanted prescriptiondrugs. Call your local pharmacy or go to http://[employer]/1D5Kt0z to find one close to you.3.Make use of household items: Use cat litter or old coffee grounds to dispose medications if other options arenot available. Mix your drugs with these household products, seal them in an airtight container andthrow it into the garbage. Call [facility]: [phone] to be sure your drugs can be disposed of in this way. Some medicines may require a different approach.4.Never flush your medications down the toilet. IF YOU HAVE BEEN PRESCRIBED AN OPIOID FOR PAIN If you have been prescribed an opioid (such as hydrocodone, oxycodone or morphine), it is critical to understand the possible side effects and risks of opioid pain medications. Even when taken as directed, opioids can have several side effects including: Tolerance, meaning you might need to take more of a medication for the same pain relief. Nausea, vomiting and/or constipation. Sleepiness, dizziness, dry mouth, confusion, depression or itching. Physical dependence, meaning you have withdrawal symptoms when a medication is stopped, can develop within a few days. KNOW YOUR RESPONSIBILITIES It is important to know exactly how much and how often to take the opioid pain medications you are prescribed. Never take opioids in higher amounts or more often than prescribed. Do not combine opioids with alcohol or other drugs that cause drowsiness, such as benzodiazepines, also known as benzos, including diazepam and alprazolam, muscle relaxants or sleep aids. Never sell or share prescription opioids. This is illegal. Store opioids in a secure place and out of reach of others (including children, family, friends and visitors). The last page of this document has been signed and retained as a CHART COPY. Signatures Patient Education Materials 1- [facility] General Discharge Guidelines (05/07/2023) (CUSTOM) Medication Leaflets My discharge plan and instructions have been reviewed and explained to me and I,MICHELLE CARLIN understand my current condition and have read and understand these discharge instructions. I have received a written copy of the plan/instructions. If I have questions, I am aware that I should contact my doctor. 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 Patient location: PACU. Assessment Postanesthesia assessment Vitals: Vital signs from flowsheet : Vital Signs 10/13/2023 12:19 EST Heart Rate Monitored 66 bpm Respiratory Rate 16 br/min Systolic Blood Pressure Non-Invasive 133 mmHg Diastolic Blood Pressure Non-Invasive 81 mmHg Mean Arterial Pressure (NBP) 97 mmHg 10/13/2023 12:04 EST Temperature Temporal Artery 36.3 DegC Heart Rate Monitored 69 bpm Respiratory Rate 14 br/min Systolic Blood Pressure Non-Invasive 122 mmHg Diastolic Blood Pressure Non-Invasive 87 mmHg Mean Arterial Pressure (NBP) 98 mmHg 10/13/2023 11:58 EST Systolic Blood Pressure Non-Invasive 124 mmHg mmHg Diastolic Blood Pressure Non-Invasive 83 mmHg mmHg 10/13/2023 11:55 EST Heart Rate Monitored 69 bpm bpm Respiratory Rate - Anes 18 br/min br/min Systolic Blood Pressure Non-Invasive 118 mmHg mmHg Diastolic Blood Pressure Non-Invasive 83 mmHg mmHg 10/13/2023 11:52 EST Systolic Blood Pressure Non-Invasive 118 mmHg mmHg Diastolic Blood Pressure Non-Invasive 83 mmHg mmHg 10/13/2023 11:50 EST Heart Rate Monitored 72 bpm bpm Respiratory Rate - Anes 17 br/min br/min 10/13/2023 11:49 EST Systolic Blood Pressure Non-Invasive 118 mmHg mmHg Diastolic Blood Pressure Non-Invasive 80 mmHg mmHg 10/13/2023 11:46 EST Systolic Blood Pressure Non-Invasive 110 mmHg mmHg Diastolic Blood Pressure Non-Invasive 79 mmHg mmHg 10/13/2023 11:45 EST Heart Rate Monitored 71 bpm bpm Respiratory Rate - Anes 13 br/min br/min 10/13/2023 11:43 EST Systolic Blood Pressure Non-Invasive 112 mmHg mmHg Diastolic Blood Pressure Non-Invasive 85 mmHg mmHg 10/13/2023 11:40 EST Heart Rate Monitored 61 bpm bpm Respiratory Rate - Anes 4 br/min br/min Systolic Blood Pressure Non-Invasive 142 mmHg mmHg Diastolic Blood Pressure Non-Invasive 83 mmHg mmHg 10/13/2023 11:37 EST Systolic Blood Pressure Non-Invasive 119 mmHg mmHg Diastolic Blood Pressure Non-Invasive 77 mmHg mmHg 10/13/2023 11:35 EST Heart Rate Monitored 62 bpm bpm Respiratory Rate - Anes 4 br/min br/min 10/13/2023 11:34 EST Systolic Blood Pressure Non-Invasive 119 mmHg mmHg Diastolic Blood Pressure Non-Invasive 82 mmHg mmHg 10/13/2023 11:31 EST Systolic Blood Pressure Non-Invasive 123 mmHg mmHg Diastolic Blood Pressure Non-Invasive 88 mmHg mmHg 10/13/2023 11:30 EST Respiratory Rate - Anes 22 br/min br/min 10/13/2023 9:27 EST Temperature Temporal Artery 36.3 DegC Apical Heart Rate 58 bpm LOW Respiratory Rate 16 br/min Systolic Blood Pressure Non-Invasive 117 mmHg Diastolic Blood Pressure Non-Invasive 70 mmHg . Mental status: at preoperative baseline. Respiratory function: respirations are non-labored, stable. Respiratory support: none. CV function: stable. Cardiovascular support: none. Pain: satisfactory. Nausea status: satisfactory. Postoperative hydration status: within normal limits. Notes: Patient is sufficiently recovered from anesthesia to participate in the evaluation. No follow-up care needed. No complications post-anesthesia.. Digitally Signed by ZAK SPRINGER MD on 10/13/2023 12:57 PM [id number] Anesthesiology Consult note Patient: MICHELLE CARLIN Age: 43 years Sex: Female : 1980 Associated Diagnoses: None Author: TYRA SONI MD Preoperative Information Time of last food or liquid consumption: 10/13/2023 00:00:00 Anesthesia history Patient's history: negative. Family's history: negative. History of Present Illness The patient presents for preanesthesia evaluation with Patient is a 43-year-old female presents forelective anal skin tag removal and anal rectal exploration. She states she is active without cardiopulmonary limitations, symptoms of ischemia, prior history of CAD or cardiac interventions. Does have a history of hypothyroidism and premature menopausal syndrome. She denies any symptoms of reflux, has no prior anesthetic issues. I reviewed her chart, studies, labs, consultations. Spoke with her at length about the anesthetic plan and risks, she verbalized understanding and signed consent to proceed with general anesthesia for planned procedure.. Health Status Allergies: Allergic Reactions (Selected) Severity Not Documented Amoxicillin- Rash. Shellfish- Itching. TraMADol- No reactions were documented. Vicodin- No reactions were documented., Allergies (4) ActiveReaction amoxicillinrash shellfishItching traMADolNone Documented VicodinNone Documented Current medications: (Selected) Inpatient Medications Ordered NS 1,000 mL: 20 mL/hr, Intravenous, Stop: 10/13/23 22:59:00 EST lidocaine 1% preservative-free injectable solution: 2.5 mg, 0.25 mL, Intradermal, prep pharm Documented Medications Documented APAP/butalbital/caffeine 325-50-40 mg oral tablet (Fioricet): 1 tab(s), Oral, qHS, 30 tab(s), 0 Refill(s) Benadryl 25 mg oral capsule: 25 mg, 1 cap(s), Oral, qHS, 0 Refill(s) Botox 100 units injection: 1.25 unit(s), Intramuscular, q3mo, 0 Refill(s) Multivitamin: 1 tab(s), Oral, qAM, 0 Refill(s) Vitamin D3 50 mcg (2000 intl units) oral capsule: 100 mcg, 2 cap(s), Oral, qAM, 60 cap(s), 0 Refill(s) Vyvanse 30 mg oral capsule: 30 mg, 1 cap(s), Oral, qAM, 0 Refill(s) estradiol 2 mg oral tablet: 2 mg, 1 tab(s), Oral, qAM, 30 tab(s), 0 Refill(s) levothyroxine 50 mcg (0.05 mg) oral tablet: 50 mcg, 1 tab(s), Oral, qAM, 30 tab(s), 0 Refill(s) tiZANidine 4 mg oral tablet: 4 mg, 1 tab(s), Oral, qHS, 0 Refill(s), Medications (2) Active Scheduled: (1) lidocaine 1% (MPF) 2 mL vial pf 2.5 mg 0.25 mL, Intradermal, prep pharm Continuous: (1) NS (0.9% nacl) 1,000 mL 1,000 mL, Intravenous, 20 mL/hr PRN: (0) Problem list: Medical Hypothyroid / SNOMED CT 36140093 / Confirmed LLQ abdominal pain / SNOMED CT 461568757 / Confirmed Menopausal state / SNOMED CT 782701764 / Confirmed Encounter for annual routine gynecological examination / SNOMED CT 296037248 / Confirmed Premature menopause on HRT / SNOMED CT 3729960590 / Confirmed Weight loss, unintentional / SNOMED CT 3356494104 / Confirmed, Active Problems (12) Anal skin tag Anxiety Encounter for annual routine gynecological examination Endometriosis Hypothyroid Irritable bowel syndrome LLQ abdominal pain Menopausal state Migraine Pericardial effusion Premature menopause on HRT Weight loss, unintentional Histories Past Medical History: No active or resolved past medical history items have been selected or recorded. Family History: Cancer Grandparent Breast cancer Grandparent Stroke Grandparent Heart attack Grandparent Hyperlipidemia Father Diabetes Mother Procedure history: Colonoscopy (467979270) in the month of 07/2023 at 42 Years. Hysterectomy (944708058). Breast reduction, bilateral (894513501). LEEP (11258886). Appendectomy (747985448). Breast lumpectomy (5341453794). Dilation and curettage (43918268). Comments: 10/05/2023 10:33 EST - Tiarra Tripp RN multiple Social History Social & Psychosocial Habits Alcohol 10/13/2023 Use: Past Substance Abuse 10/13/2023 Use: Never Tobacco 10/13/2023 Tobacco Use: Never (less than 100 in l Home/Environment 10/13/2023 Living situation: Home/Independent Safe place to go: Yes Domestic Concerns Denies Nutrition/Health 10/13/2023 Type of diet: Regular Caffeine intake amount: tea occassionaly Appetite Good Eating Difficulties None . Physical Examination Vital Signs 10/13/2023 9:27 EST Temperature Temporal Artery 36.3 DegC Apical Heart Rate 58 bpm LOW Respiratory Rate 16 br/min Systolic Blood Pressure Non-Invasive 117 mmHg Diastolic Blood Pressure Non-Invasive 70 mmHg Vital Signs(last 24 hrs) Last Charted CTU473 mmHg (OCT 13 09:27) DBP70 mmHg (OCT 13 09:27) Measurements from flowsheet : Measurements 10/13/2023 9:27 EST Height 162.6 cm Height in inches 64 inch(es) Admission Weight 49.5 kg Weight Lbs 108.9 lb Weight Method Actual Cutler Body Weight 54.74 kg Type of Scale Used Bed scale Admission Body Mass Index 18.72 m2 Pain assessment: Pain Assessment 10/13/2023 9:27 EST Primary Pain Location Abdomen Abdominal Pain Location LLQ Primary Pain Intensity 2 Pain Scale Type 0-10 Pain scale . General: Alert and oriented, No acute distress. Airway: Normal mouth. Mallampati classification: II (soft palate, fauces, uvula visible). Head: Normocephalic, Atraumatic. Dentition Evaluation: Intact, Own teeth. Neck: Supple, Non-tender. Respiratory: Lungs are clear to auscultation, Respirations are non-labored. Cardiovascular: Normal rate, Regular rhythm. Heart Sounds: Normal. Neurologic: Alert, Oriented. Review / Management Results review: No qualifying data available , Lab results 10/13/2023 9:30 EST Sodium Chloride 0.9% Begin Bag 1,000 mL mL 10/13/2023 9:29 EST SN - Preop - CTm Pt Ready for OR/Proced 10/13/2023 9:30 10/13/2023 9:28 EST Forearm Left 10/13/2023 20 gauge Peripheral IV Activity: Insert new site Peripheral IV Dressing Condition: Clean, Dry, Intact Peripheral IV Dressing Activity: Applied Peripheral IV Line Status/Patency: Continuous infusion Peripheral IV Site Condition: No complications Peripheral IV Equipment: Manual Individuals Taught Patient, Spouse Learning Readiness Willing to learn Barriers to Learning None evident Teaching Method Explanation, Printed materials Preferred Spoken Language Mongolian Preferred Written Language Mongolian Family/Caregiver Prefer Spoken Language Mongolian Family/Caregiver Prefer Written Language Mongolian General Infection Prevention Strategies Hand hygiene Surgical Site Infection Prevention SSI FAQ provided Infection Prevention Teaching Evaluation Verbalizes/Nonverbally indicates understanding Pre Procedure/Surgery Education Appropriate expectations, Bring glasses, hearing aids, contact lenscase, Date/Time of procedure/surgery, Hospital gown requirement worn to OR, Leave valuables, jewelry, wedding ring at home, Meds to take or hold, NPO, 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, Surgical skin prep Procedure/Surgical Teaching Evaluation Verbalizes/Nonverbally indicates understanding Safety Measures Education Fall prevention Safety Teaching Evaluation Verbalizes/Nonverbally indicates understanding 10/13/2023 9:27 EST Height 162.6 cm Height in inches 64 inch(es) Admission Weight 49.5 kg Weight Lbs 108.9 lb Weight Method Actual [place]ler Body Weight 54.74 kg Type of Scale Used Bed scale Admission Body Mass Index 18.72 m2 Temperature Temporal Artery 36.3 DegC Apical Heart Rate 58 bpm LOW Respiratory Rate 16 br/min Systolic Blood Pressure Non-Invasive 117 mmHg Diastolic Blood Pressure Non-Invasive 70 mmHg Primary Pain Location Abdomen Abdominal Pain Location LLQ Primary Pain Intensity 2 Pain Scale Type 0-10 Pain scale Heart Rhythm Regular Respirations Unlabored Respiratory Pattern Regular Breath Sounds Auscultated Anterior and posterior All Lobes Breath Sounds Clear Cough None Oxygen Saturation 100 % GI Symptoms Constipation, Diarrhea Abdomen Description Non-distended, Soft Abdomen Palpation Non-Tender, Soft Bowel Sounds All Quadrants Present Urinary Elimination Voiding, no difficulties Skin Temperature Warm Skin Description [place], Normal for ethnicity, Dry Skin Integrity Intact Skin Moisture General Dry Neurological Symptoms Headache Extremity Movement Equal Characteristics of Speech Clear Level of Consciousness Alert Strength All Extremities Strong Tone All Extremities Normal Sensation All Extremities Intact Affect/Behavior Appropriate, Calm, Cooperative Orientation Oriented x 4 Orientation Assessment Oriented x 4 Standard Safety ID band on, Allergy Band on, Call device within reach, Bed in low position, Wheels locked, Upper/Half-Length side-rails up, Phone within reach, personal items within reach, Visitor atbedside, Non-Slip footwear Demonstrates Correct Call Light Use Yes 10/13/2023 9:25 EST IV Present Present Violence Risk Confused No Violence Risk Irritable No Violence Risk Boisterous No Violence Risk Verbal Threats No Violence Risk Physical Threats No Violence Risk Attacking Objects No Violence Risk Predictor Score 0 Violence Risk Intervention None Violence Risk Current Interventions None Allergies Yes Consent Form Signed Yes Patient Dressed In Hospital gown Pre-op Preparation Jewelry removed CHG Preoperative Wash/Wipe Not done Non-CHG Preoperative Shampoo Not applicable Preop Nasal Swab Alcohol based (Nozin) CHG Skin Prep Not completed - surgery contraindicated History & Physical Update On Chart Yes History & Physical On Chart Yes Obstructive Sleep Apnea Assess Completed Yes MRSA/MSSA Protocol No Belongings At Bedside Bra, Pants, Shirt, Shoes, Undergarments NPO Status Maintained Allergy Band on and Verified Yes Patient ID Band on and Verified Yes Implants Verified Yes Pacemaker/AICD Verified Yes Site Verified by Patient/Family Yes Last Fluid Intake 10/12/2023 0:00 Last Food Intake 10/12/2023 22:00 Last Void 10/13/2023 9:27 10/13/2023 9:22 EST Designated Person #1 We May Share LU Carlin [phone] Designated Person #1 Relationship Spouse Privacy Restrictions Requested None Status No, per patient Sensory Deficits None Sleep Apnea Snore No Sleep Apnea Tired Yes Sleep Apnea Obstruction No Sleep Apnea Pressure No Sleep Apnea BMI No Sleep Apnea Age No Sleep Apnea Neck No Sleep Apnea Gender No Sleep Apnea Score 1 Diagnosed With Sleep Apnea No Advanced Directives No - refuses information Infectious Disease Symptoms Patient states no symptoms Infectious Disease Recent Exposure Yes Alcohol and Drug Use No Employee of Institutional Living No Health Care Employee Yes History of Exposure to TB No History of Positive Chest X-Ray for TB No History of Positive TB Skin Test Yes Homeless No Known Immunosuppression No Recent Immigrant No Resident of Institutional Living No Bloody Sputum No Fatigue No Fever No Loss of Appetite No Night Sweats No Persistent Cough > 3 Weeks No Weight Loss No Surgery Scheduled On Date/Time 10/13/2023 10:50 Patient Aware Date/Time Of Surgery Yes Arrival Time the Day of Surgery 10/13/2023 8:50 Patient Aware of Arrival Time Yes Pre-Op Patient Education NPO after midnight, No smoking after midnight, No makeup, No jewelry, Responsible Alliance Party, Aware of surgery location, Pre-op education done, No ordered medications, Instructed to bring home medications SN - Preprocedure Comments Spoke with patient, Verbalizes/Nonverbally indicates understanding Notification Attempts 10/12/23 1345 LM RE: OR REPORT IN TIMES. Barriers to Learning None evident Teaching Method Explanation, Printed materials Preferred Spoken Language Mongolian Preferred Written Language Mongolian Teaching Evaluation Verbalizes/Nonverbally indicates understanding Safety Brochure Information Reviewed Yes [employer] Video Viewed Previously viewed Information Given by Patient Patient's Current Physicians Patient's Current Physicians Discharge To, Anticipated Home independently Infectious Diseases Health History Influenza: Seasonal Prev Test Positive/Diagnosis w/COVID-19 No Current Quarantine/Isolated any Illness No Any Contact with Sick Animals/Birds No Traveled Anywhere in Last 30 Days No Lost Weight Unintentionally Recently Yes, 34 lb or more weight loss Eat Poorly Due to Decreased Appetite No Total MST Score 4 No Personal Devices, Patient Valuables None Anesthesia/Transfusions Prior anesthesia Admission Note-Nursing Same Day Patient History 10/13/2023 9:21 EST SN - Preop - CTm Pt in SDS Room 10/13/2023 9:22 10/12/2023 13:44 EST Surgery Scheduled On Date/Time 10/13/2023 10:50 Arrival Time the Day of Surgery 10/13/2023 8:50 Patient Aware of Arrival Time Yes Pre-Op Patient Education NPO after midnight, No smoking after midnight, No makeup, No jewelry, Responsible Alliance Party, Aware of surgery location, Pre-op education done, No ordered medications, Instructed to bring home medications (Modified) Notification Attempts 10/12/23 1345 LM RE: OR REPORT IN TIMES. Patient's Current Physicians Patient's Current Physicians Discharge To, Anticipated Home independently Personal Devices, Patient Valuables None Admission Note-Nursing Patient History PreTest (Modified) . Assessment and Plan [place] [employer]esthesi[employer] (ASA) physical status classification: Class II. Anesthetic Preoperative Plan Premedication: intravenous. Anesthetic technique: General. Induction: intravenously. Maintenance airway: Oral endotracheal tube. Postoperative pain management: Per surgeon. Risks discussed: nausea, vomiting, headache, sore throat, dental injury, hypotension, allergic reaction, serious complications. Informed consent: signed by patient. Notes: Patient identified, medical record reviewed, medical history reviewed with patient. Assessment performed. Plan prescribed discussed with patient including risks. Inquiries invited and addressed. Consent signed by patient, pt agrees to proceed with GA for planned procedure . Digitally Signed by TYRA SONI MD on 10/13/2023 11:04 AM [id number] History of Present illness Narrative* Mariana Acuña, CONFIGURATION CONSULTANT - ELECTRICAL AND INSTRUMENT ENGINEER - 10/04/2023 3:00 PM EST [facility] NEUROLOGY OUTPATIENT CLINIC Primary Care Physician: Mark Shabazz Chief Complaint: Chief Complaint Patient presents with Procedure TPI Main Diagnosis: Diagnosis Plan 1. Chronic migraine without aura, intractable, without status migrainosus lidocaine (Xylocaine) 1 %injection 9 mL triamcinolone acetonide (Kenalog) injection 10 mg History: given by the patient and EMR. EMR was personally reviewed prior to today's visit and included review of prior notes and intermediate communications. HPI: Ms. Michelle Carlin is a 43 y.o. female who is seen in the NEUROLOGY CLINIC of [facility] for migraines. Patient states she has suffered migraines since 2006. Patient has been on fioricet for abortive which worked for awhile but unfortunately no longer is as effective. She was placed on Depakoteover 6 months ago as preventative and states that this worked slightly at first but no longer is working to prevent them. Patient states her headaches are frontal/temporal, bilateral. She describes her pain as a dull pain. She has associated symptoms of photophobia, phonophobia, visual aura, nausea, and dizziness. Patient complains of having headaches 6 out of 10 days with 60 % of the headaches evolving into a migraine. Patient states she turned 41 and underwent botox injections (cosmetically) and she states she noticed that this improved her migraines. Patient is positive for thyroid disease. She has family history of migraines with her Mother. Other family history: Cancer, diabetes, and hypertension. Patient is a non-smoker and drinks alcohol occasionally. The last visit was 05/17/2023 with this provider where the patient received Botox injections and TPIfor the prevention of migraine pain. Headache characteristics: Description of pain: throbbing pain, bilateral in the frontal area, bilateral in the temporal area. Duration of individual headaches: 4-36 hour(s), frequency weekly. Associated symptoms: aura, light sensitivity, nausea, visual disturbance, and sound sensitivity. Pain relief: prescription medications - triptan therapy. Precipitating factors: stress and weather changes. INTERVAL HISTORY: Today, the patient returns for follow up of migraine control after receiving Botox injections and trigger point injections for the prevention and treatment of migraine. The patient states Botox is helping control migraine pain. The patient reports increased neck and shoulder pain which she feels is resolved with TPI. The patient would like to receive TPI again today. TPI provided as documented below. Patient denies any side effects from medications. Current migraine Meds: Botox Fioricet Nurtec Side effects: No known side effects Previous medication trials: Imitrex Maxalt Emgality Phenergan Benedryl Topamax Ubrelvy Amitriptyline Nortriptyline Past Medical History: Diagnosis Date ADHD (attention deficit hyperactivity disorder) Anxiety Cluster headache Headache Headache, tension-type Migraine Numbness Trigeminal neuralgia Vision loss Past Surgical History: Procedure Laterality Date COLPOSCOPY 2014 HYSTEROSCOPY 2015 plus D&C OOPHORECTOMY Left 2009 OVARIAN CYST SURGERY Right 2012 Allergies Allergen Reactions Amoxicillin-Pot Clavulanate Other reaction(s): Hives and/or rash Hydrocodone-Acetaminophen Nausea And Vomiting Other reaction(s): Severe nausea & vomiting, Vomiting Tramadol Hallucinations @HOMEMEDS@ Current Outpatient Medications Medication Sig Dispense Refill ALPRAZolam (Xanax) 0.5 MG tablet Bacillus Coagulans-Inulin (Probiotic) 1-250 BILLION-MG capsule Take by mouth. wsqzdqusfi-rshjsiuupdcqo-gzhorwcl 50-325-40 MG tablet TAKE 1 TABLET BY MOUTH EVERY 6 HOURS IF NEEDED FOR HEADACHE. 90 day supply 120 tablet 0 cholecalciferol (Vitamin D-3) 50 MCG (1999 UT) capsule Take by mouth. estradiol (Estrace) 2 MG tablet Take 2 mg by mouth daily. levothyroxine (Synthroid, Levoxyl) 50 MCG tablet Take 50 mcg by mouth daily. lisdexamfetamine (Vyvanse) 30 MG capsule Take 30 mg by mouth every morning. ondansetron ODT (Zofran-ODT) 4 MG disintegrating tablet dissolve 1 tablet under the tongue every 8 hours if needed for nausea OR vomiting Strength: 4 mg 60 tablet 2 therapeutic multivitamin-minerals (Theragran-M) tablet Take 1 tablet by mouth daily. tiZANidine (Zanaflex) 4 MG tablet Take 1 tablet (4 mg) by mouth every 8 hours as needed for muscle spasms. 0 Refill(s) 90 tablet 1 Rimegepant Sulfate (Nurtec) 75 MG tablet dispersible TAKE 75 MG BY MOUTH ONCE EVERY OTHER DAY (MIGRAINE) (Patient not taking: Reported on 08/17/2023) 16 tablet 5 Current Facility-Administered Medications Medication Dose Route Frequency Provider Last Rate Last Admin lidocaine (Xylocaine) 1 % injection 9 mL 9 mL IntraDERmal Once CLEVELAND Patel CNP triamcinolone acetonide (Kenalog) injection 10 mg 10 mg IntraMUSCular Once CLEVELAND Patel CNP Family History Problem Relation Name Age of Onset High Blood Pressure Mother Sara Other ([id number]) Mother Sara fibromyalgia, anxiety issues Cancer Mother Sara thyroid Diabetes Mother Sara ADD / ADHD Mother Sara Anxiety disorder Mother Sara Depression Mother Sara Fibromyalgia Mother Sara Migraines Mother Sara Neuropathy Mother Sara High Blood Pressure Father Cancer Other great Mat grandma pancreatic Cancer Paternal Grandmother breast and ovarian Cancer Other 2n cousin-paternal breast Cancer Mother's Sister breast Cancer Father's Sister skin Parkinsonism Paternal Grandfather Adam Social Connections: Not on file REVIEW OF SYSTEMS: Review of Systems Constitutional: Positive for appetite change. Negative for activity change and chills. HENT: Positive for sinus pressure. Negative for ear pain, facial swelling, mouth sores, rhinorrhea,sinus pain and tinnitus. Eyes: Positive for visual disturbance. Negative for photophobia and pain. Respiratory: Negative for cough and chest tightness. Gastrointestinal: Positive for nausea. Negative for abdominal pain and vomiting. Endocrine: Negative for cold intolerance and heat intolerance. Genitourinary: Negative for difficulty urinating. Musculoskeletal: Positive for back pain, neck pain and neck stiffness. Allergic/Immunologic: Positive for environmental allergies. Negative for food allergies. Neurological: Positive for numbness and headaches. Negative for dizziness, tremors, syncope, speechdifficulty and weakness. Hematological: Does not bruise/bleed easily. Psychiatric/Behavioral: Negative for confusion, decreased concentration and hallucinations. The patient is not nervous/anxious. All other systems reviewed and are negative. PHYSICAL EXAM: BP 120/74 (BP Location: Left arm) Pulse 64 Temp 36.3 C (97.3 F) Physical Exam Vitals and nursing note reviewed. Constitutional: Appearance: Normal appearance. She is normal weight. HENT: Head: Normocephalic. Nose: Nose normal. Eyes: Extraocular Movements: Extraocular movements intact. Conjunctiva/sclera: Conjunctivae normal. Pupils: Pupils are equal, round, and reactive to light. Pulmonary: Effort: Pulmonary effort is normal. Musculoskeletal: General: Normal range of motion. Cervical back: Normal range of motion. Skin: General: Skin is warm and dry. Neurological: General: No focal deficit present. Mental Status: She is alert and oriented to person, place, and time. Mental status is at baseline. Psychiatric: Mood and Affect: Mood normal. Behavior: Behavior normal. Thought Content: Thought content normal. Judgment: Judgment normal. Neuro: Alert and oriented x4. Language: fluent and prosodic. Content and vocabulary reasonable for age and education level. Attention and Concentration intact Fund of knowledge: Knowledge of current events demonstrated. CN II: PERRLA CN III, IV, : EOM intact, no end-gaze nystagmus CN VII: smiling and tight eye closure symmetric CN VIII: grossly intact Gait: routine gait steady ASSESSMENT: 43 y.o. female with past medical history as above who presents for follow up evaluation of migrainewith improvement on current medication regimen. IMPRESSION: Diagnosis Plan 1. Chronic migraine without aura, intractable, without status migrainosus lidocaine (Xylocaine) 1 %injection 9 mL triamcinolone acetonide (Kenalog) injection 10 mg PLAN: 1. TPI provided as documented below. 2. Patient will follow up in about 6 weeks for Botox injections, sooner if needed. I hope that all of your questions and concerns were addressed during today's visit. Please don't hesitate to call the Department of Neurology at [phone] for any further concerns. Sincerely, Mariana Acuña APRN - SUDHAKAR The above diagnosis and management plan were discussed at length with the patient who voiced understanding and agreed. Electronically signed by: CLEVELAND Patel CNP 10/04/2023 2:53 PM Procedure: Trigger point injections into posterior cervical muscles. With the patient is sitting position patient received trigger point injection into the posterior cervical, shoulder muscles. The injections were performed with 9 mL's of 1% lidocaine and trace of Kenalog. Patient injections were performed as follows: 1. Right trapezius 3 trigger point injections. 2. Left trapezius 3 trigger point injections. 3. Right splenius capitis 1 trigger point injection 4. Left splenius capitis 1 injection. 5. Right levator scapula 1 injection 6. Left levator scapula 1 injection. CLEVELAND Patel CNP documented in this encounterSMagruder Memorial [id number] Telephone encounter Note* Telephone Encounter - Veronique Simeon - 08/24/2023 1:59 PM EST Faxed clinicals to the fax# provided for prevention dosing [id number] Miscellaneous Notes* Telephone Encounter - Veronique Simeon - 08/24/2023 1:59 PM EST Faxed clinicals to the fax# provided for prevention dosing * Telephone Encounter - Veronique Pike MA - 08/24/2023 1:27 PM EST I spoke with Veronique Lindsay with [facility] and she is submitting this information to [facility]. * Telephone Encounter - Sophie Garrido - 08/24/2023 11:54 AM EST Name of caller: Roxanna Contact phone number: [phone] Relationship to Patient: [facility] Provider: Domenico DE LA FUENTE Practice: Neurology, [place] Chief Complaint/Reason for Call: Roxanna is requesting a call back for clarification on Rx. Nurtec. Roxanna states that the medication was originally prescribed for acute care but is now prescribed at preventative dosing. Roxanna is also requesting to have chart notes faxed to fax number [phone]. Please advise. Best time of day caller can be reached: Any Patient advised that office/PCP has 24-48 business hours to return their call: No documented in this encounterSMagruder Memorial [id number] Telephone encounter Note* Telephone Encounter - Veronique Pike MA - 08/24/2023 1:27 PM EST I spoke with Veronique Lindsay with [facility] and she is submitting this information to [facility]. [facility] [id number] Telephone encounter Note* Telephone Encounter - Sophie Garrido - 08/24/2023 11:54 AM EST Name of caller: Roxanna Contact phone number: [phone] Relationship to Patient: [facility] Provider: Domenico DE LA FUENTE Practice: Neurology, [facility] Chief Complaint/Reason for Call: Roxanna is requesting a call back for clarification on Rx. Nurtec. Roxanna states that the medication was originally prescribed for acute care but is now prescribed at preventative dosing. Roxanna is also requesting to have chart notes faxed to fax number [phone]. Please advise. Best time of day caller can be reached: Any Patient advised that office/PCP has 24-48 business hours to return their call: No [facility] [id number] NoteBorderline elevated. Re-evaluation in 4-6 weeks is recommended if clinically indicated.[facility] ([place])Comment on above:Result Comment: On January 12, 2023, [facility] [employer] implemented a new fecal calprotectinmethod, the Dia[employer] Liaison Calprotectin assay. For assistance with interpretation of results in patients undergoing serial monitoring, contact Client Services at [phone] or [phone] to discuss options, preferably within 7 days of issuing this report. Interpretation: <50.0 ug/g: Normal 50.0 ug/g - 120.0 ug/g: Borderline elevated. Re-evaluation in 4-6 weeks is recommended if clinically indicated. >120.0 ug/g: Elevated Performed By: [facility] [employer] [facility] [place] [address] Offset Lithographic Press Setter: Nicholas Reyes III, M.D. CLIA#: [id number] By: #### CALPRO ####[address] [place], [place] [id number] NoteCalprotectin InterpBorderline elevated. Re- evaluation in 4-6 weeks is recommended if clinically indicated.1 *ABN* (08/17/23 4:49 PM)AO Sendouts SSComment on above:Result Comment: On January 12, 2023, [facility] [employer] implemented a new fecal calprotectinmethod, the Dia[employer] Liaison Calprotectin assay. For assistance with interpretation of results in patients undergoing serial monitoring, contact Client Services at [phone] or [phone] to discuss options, preferably within 7 days of issuing this report. Interpretation: <50.0 ug/g: Normal 50.0 ug/g - 120.0 ug/g: Borderline elevated. Re-evaluation in 4-6 weeks is recommended if clinically indicated. >120.0 ug/g: Elevated Performed By: [facility] [employer] [place] [id number] [employer] Setter: Nicholas Reyes III, M.D. CLIA#: [id number] Telephone encounter Note* Telephone Encounter - Mariana Acuña APRN - SUDHAKAR - 08/17/2023 10:13 AM EST Requested Prescriptions Signed Prescriptions Disp Refills tiZANidine (Zanaflex) 4 MG tablet 90 tablet 1 Sig: Take 1 tablet (4 mg) by mouth every 8 hours as needed for muscle spasms. 0 Refill(s) Authorizing Provider: MARIANA ACUÑA [facility] [id number] Miscellaneous Notes* Telephone Encounter - CLEVELAND Patel CNP - 08/17/2023 10:13 AM EST Requested Prescriptions Signed Prescriptions Disp Refills tiZANidine (Zanaflex) 4 MG tablet 90 tablet 1 Sig: Take 1 tablet (4 mg) by mouth every 8 hours as needed for muscle spasms. 0 Refill(s) Authorizing Provider: MARIANA ACUÑA * Telephone Encounter - Magaly Jaimes - 08/17/2023 9:38 AM EST Name of caller: Pharmacist Contact phone number: [phone] Relationship to Patient: Pharmacy Provider: Jose Acuña Practice: Neuro Chief Complaint/Reason for Call: tiZANidine (Zanaflex) 4 MG tablet [[id number]] Order Details Dose, Route, Frequency: As Directed Dispense Quantity: 90 tablet Refills: 0 Si Refill(s MISSING DIRECTIONS - please advise accordingly. Best time of day caller can be reached: any Patient advised that office/PCP has 24-48 business hours to return their call: No documented in this encounterSMagruder Memorial [id number] Telephone encounter Note* Telephone Encounter - Magaly Jaimes - 08/17/2023 9:38 AM EST Name of caller: Pharmacist Contact phone number: [phone] Relationship to Patient: Pharmacy Provider: Jose Acuña Practice: Neuro Chief Complaint/Reason for Call: tiZANidine (Zanaflex) 4 MG tablet [[id number]] Order Details Dose, Route, Frequency: As Directed Dispense Quantity: 90 tablet Refills: 0 Si Refill(s MISSING DIRECTIONS - please advise accordingly. Best time of day caller can be reached: any Patient advised that office/PCP has 24-48 business hours to return their call: No [facility] [id number] History of Present illness Narrative* CLEVELAND Patel CNP - 08/17/2023 8:45 AM EST DEPARTMENT OF NEUROLOGY BOTOX PROCEDURE NOTE FOR HEADACHE Date: 08/17/23 Patient: Michelle Carlin : 1980 Diagnosis: Chronic migraine without aura, intractable, without status migrainosus [G43.719] Procedure: Botox injections into the scalp and posterior cervical muscles. Prior to procedure risks, benefits, alternatives, and potential side effects were reviewed with patient. Specifically reviewed possible risk of temporary muscle weakness. All questions were answered,patient expressed understanding, verbal consent given for procedure. No numbing spray applied/removed. Botox was injected with the parameters below: With the patient in sitting position, she received Botox injections in the neck and skull muscles. Patient receive the following doses: 1. R Frontalis 10 units 2. L Frontalis 10 units 3. R Enterprise Systems Architect 10 units 4. L Enterprise Systems Architect 10 units 5. R Temporalis 20 units 6. L Temporalis 20 units 7. R Occipitalis 25 units 8. L Occipitalis 25 units 9. R Trapezious 20 units 10. L Trapezious 20 units 11. R Masseter 15 units 12. L Masseter 15 units Total units injected 200 units. Units discarded 0 units. Comments: The patient states an improvement in migraine frequency and severity of at least 75% frombaseline. For the acute treatment of migraine the patient has used Nurtec with good results along with Fioricet. The patient states headaches have again increased as she is due again for Botox. The patient reports jaw pain as well as jaw clinching. Discussed providing Botox in the masseter muscles which the patient was open to receiving. The patient reports improvement in neck and shoulder pain following treatment with trigger point injections and is requesting treatment today as well. TPI provided as documented below. The patient will follow up in the neurology clinic in about 3 months, sooner if needed. [x] Pt tolerated procedure well. Pt advised to avoid exercise or strenuous physical activity for 24hours. Post treatment expectations reviewed in detail. CLEVELAND Patel CNP 08/17/23 Procedure: Trigger point injections into posterior cervical muscles. With the patient is sitting position patient received trigger point injection into the posterior cervical, shoulder muscles. The injections were performed with 9 mL's of 1% lidocaine and trace of Kenalog. Patient injections were performed as follows: 1. Right trapezius 3 trigger point injections. 2. Left trapezius 3 trigger point injections. 3. Right splenius capitis 1 trigger point injection 4. Left splenius capitis 1 injection. 5. Right levator scapula 1 injection 6. Left levator scapula 1 injection. CLEVELAND Patel CNP 08/17/23 * Veronique Pike MA - 08/17/2023 8:45 AM EST Administrations This Visit onabotulinumtoxin A (BOTOX) injection 200 Units Admin Date 08/17/23 Action Given Dose 200 Units Route IntraMUSCular Site Other Administered By CLEVELAND Patel CNP Ordering Provider: CLEVELAND Patel CNP [facility]: [id number] Lot#: [id number] Administrative Job Titles: [employer] Patient Supplied?: No documented in this [facility]12-11-2023 Evaluation + Plan note Future Scheduled Tests Radiology* ANTHONY Mammo Diagnostic Bilateral w/Palomo 08/02/23 [facility] 12-06-2023 Telephone encounter Note* Telephone Encounter - Veronique Simeon - 07/28/2023 2:57 PM EST We have attempted to reach the patient several times regarding their medication refill with [facility]. They been unreachable via these methods; Phone call, SMS, [employer] message and have not been heard from since May. If we are unable to get in contact with the patient, they will be discharged from [facility] services. If the patient reaches out to the office, please have them contact us as soon as possible at [phone]. Thank you and have a great day! [facility] [id number] Miscellaneous Notes* Telephone Encounter - Veronique Simeon - 07/28/2023 2:57 PM EST We have attempted to reach the patient several times regarding their medication refill with [facility]. They been unreachable via these methods; Phone call, SMS, [employer] message and have not been heard from since May. If we are unable to get in contact with the patient, they will be discharged from [facility] services. If the patient reaches out to the office, please have them contact us as soon as possible at [phone]. Thank you and have a great day! documented in this encounterSMagruder Memorial [id number] History of Present illness Narrative* Mariana Acuña APRN - ELECTRICAL AND INSTRUMENT ENGINEER - 06/25/2023 10:00 AM EDT [facility] NEUROLOGY OUTPATIENT CLINIC Primary Care Physician: Mark Shabazz Chief Complaint: Chief Complaint Patient presents with Procedure TPI Main Diagnosis: Diagnosis Plan 1. Chronic migraine without aura, intractable, without status migrainosus lidocaine (Xylocaine) 1 %injection 9 mL triamcinolone acetonide (Kenalog) injection 10 mg History: given by the patient and EMR. EMR was personally reviewed prior to today's visit and included review of prior notes and intermediate communications. HPI: Ms. Michelle Carlin is a 42 y.o. female who is seen in the NEUROLOGY CLINIC of [facility] for migraines. Patient states she has suffered migraines since 2006. Patient has been on fioricet for abortive which worked for awhile but unfortunately no longer is as effective. She was placed on Depakoteover 6 months ago as preventative and states that this worked slightly at first but no longer is working to prevent them. Patient states her headaches are frontal/temporal, bilateral. She describes her pain as a dull pain. She has associated symptoms of photophobia, phonophobia, visual aura, nausea, and dizziness. Patient complains of having headaches 6 out of 10 days with 60 % of the headaches evolving into a migraine. Patient states she turned 41 and underwent botox injections (cosmetically) and she states she noticed that this improved her migraines. Patient is positive for thyroid disease. She has family history of migraines with her Mother. Other family history: Cancer, diabetes, and hypertension. Patient is a non-smoker and drinks alcohol occasionally. The last visit was 05/17/2023 with this provider where the patient received Botox injections and TPIfor the prevention of migraine pain. Headache characteristics: Description of pain: throbbing pain, bilateral in the frontal area, bilateral in the temporal area. Duration of individual headaches: 4-36 hour(s), frequency weekly. Associated symptoms: aura, light sensitivity, nausea, visual disturbance, and sound sensitivity. Pain relief: prescription medications - triptan therapy. Precipitating factors: stress and weather changes. INTERVAL HISTORY: Today, the patient returns for follow up of migraine control after receiving Botox injections and trigger point injections for the prevention and treatment of migraine. The patient states Botox is helping control migraine pain. The patient reports increased neck and shoulder pain which she feels is resolved with TPI. The patient would like to receive TPI again today. TPI provided as documented below. Patient denies any side effects from medications. Current migraine Meds: Botox Fioricet Nurtec Side effects: No known side effects Previous medication trials: Imitrex Maxalt Emgality Phenergan Benedryl Topamax Ubrelvy Amitriptyline Nortriptyline Past Medical History: Diagnosis Date ADHD (attention deficit hyperactivity disorder) Anxiety Cluster headache Headache Headache, tension-type Migraine Numbness Trigeminal neuralgia Vision loss Past Surgical History: Procedure Laterality Date COLPOSCOPY 2014 HYSTEROSCOPY 2015 plus D&C OOPHORECTOMY Left 2009 OVARIAN CYST SURGERY Right 2012 Allergies Allergen Reactions Amoxicillin-Pot Clavulanate Other reaction(s): Hives and/or rash Hydrocodone-Acetaminophen Nausea And Vomiting Other reaction(s): Severe nausea & vomiting, Vomiting Tramadol Hallucinations @[email or web address]@ Current Outpatient Medications Medication Sig Dispense Refill ALPRAZolam (Xanax) 0.5 MG tablet Bacillus Coagulans-Inulin (Probiotic) 1-250 BILLION-MG capsule Take by mouth. ebipcsfjwg-jnjsqlmldzdbk-hkrnpcgy 50-325-40 MG tablet TAKE 1 TABLET BY MOUTH EVERY 6 HOURS IF NEEDED FOR HEADACHE. 90 day supply 120 tablet 0 cholecalciferol (Vitamin D-3) 50 MCG (1999 UT) capsule Take by mouth. estradiol (Estrace) 2 MG tablet Take 2 mg by mouth daily. levothyroxine (Synthroid, Levoxyl) 50 MCG tablet Take 50 mcg by mouth daily. lisdexamfetamine (Vyvanse) 30 MG capsule Take 30 mg by mouth every morning. ondansetron ODT (Zofran-ODT) 4 MG disintegrating tablet dissolve 1 tablet under the tongue every 8 hours if needed for nausea OR vomiting Strength: 4 mg 60 tablet 2 Rimegepant Sulfate (Nurtec) 75 MG tablet dispersible TAKE 75 MG BY MOUTH ONCE EVERY OTHER DAY (MIGRAINE) 16 tablet 5 therapeutic multivitamin-minerals (Theragran-M) tablet Take 1 tablet by mouth daily. tiZANidine (Zanaflex) 4 MG tablet 0 Refill(s) Current Facility-Administered Medications Medication Dose Route Frequency Provider Last Rate Last Admin lidocaine (Xylocaine) 1 % injection 9 mL 9 mL IntraDERmal Once CLEVELAND Patel CNP triamcinolone acetonide (Kenalog) injection 10 mg 10 mg IntraMUSCular Once CLEVELAND Patel CNP Family History Problem Relation Name Age of Onset High Blood Pressure Mother Sara Other ([id number]) Mother Sara fibromyalgia, anxiety issues Cancer Mother Sara thyroid Diabetes Mother Sara ADD / ADHD Mother Sara Anxiety disorder Mother Sara Depression Mother Sara Fibromyalgia Mother Sara Migraines Mother Sara Neuropathy Mother Sara High Blood Pressure Father Cancer Other great Mat grandma pancreatic Cancer Paternal Grandmother breast and ovarian Cancer Other 2n cousin-paternal breast Cancer Mother's Sister breast Cancer Father's Sister skin Parkinsonism Paternal Grandfather Adam Social Connections: Not on file REVIEW OF SYSTEMS: Review of Systems Constitutional: Positive for appetite change. Negative for activity change and chills. HENT: Positive for sinus pressure. Negative for ear pain, facial swelling, mouth sores, rhinorrhea,sinus pain and tinnitus. Eyes: Positive for visual disturbance. Negative for photophobia and pain. Respiratory: Negative for cough and chest tightness. Gastrointestinal: Positive for nausea. Negative for abdominal pain and vomiting. Endocrine: Negative for cold intolerance and heat intolerance. Genitourinary: Negative for difficulty urinating. Musculoskeletal: Positive for back pain, neck pain and neck stiffness. Allergic/Immunologic: Positive for environmental allergies. Negative for food allergies. Neurological: Positive for numbness and headaches. Negative for dizziness, tremors, syncope, speechdifficulty and weakness. Hematological: Does not bruise/bleed easily. Psychiatric/Behavioral: Negative for confusion, decreased concentration and hallucinations. The patient is not nervous/anxious. All other systems reviewed and are negative. PHYSICAL EXAM: BP 133/86 (BP Location: Right arm) Pulse 86 Temp 36.2 C (97.2 F) Physical Exam Vitals and nursing note reviewed. Constitutional: Appearance: Normal appearance. She is normal weight. HENT: Head: Normocephalic. Nose: Nose normal. Eyes: Extraocular Movements: Extraocular movements intact. Conjunctiva/sclera: Conjunctivae normal. Pupils: Pupils are equal, round, and reactive to light. Pulmonary: Effort: Pulmonary effort is normal. Musculoskeletal: General: Normal range of motion. Cervical back: Normal range of motion. Skin: General: Skin is warm and dry. Neurological: General: No focal deficit present. Mental Status: She is alert and oriented to person, place, and time. Mental status is at baseline. Psychiatric: Mood and Affect: Mood normal. Behavior: Behavior normal. Thought Content: Thought content normal. Judgment: Judgment normal. Neuro: Alert and oriented x4. Language: fluent and prosodic. Content and vocabulary reasonable for age and education level. Attention and Concentration intact Fund of knowledge: Knowledge of current events demonstrated. CN II: PERRLA CN III, IV, : EOM intact, no end-gaze nystagmus CN VII: smiling and tight eye closure symmetric CN VIII: grossly intact Gait: routine gait steady ASSESSMENT: 42 y.o. female with past medical history as above who presents for follow up evaluation of migrainewith improvement on current medication regimen. IMPRESSION: Diagnosis Plan 1. Chronic migraine without aura, intractable, without status migrainosus lidocaine (Xylocaine) 1 %injection 9 mL triamcinolone acetonide (Kenalog) injection 10 mg PLAN: 1. TPI provided as documented below. 2. Patient will follow up in about 6 weeks for Botox injections, sooner if needed. I hope that all of your questions and concerns were addressed during today's visit. Please don't hesitate to call the Department of Neurology at [phone] for any further concerns. Sincerely, CLEVELAND Patel CNP The above diagnosis and management plan were discussed at length with the patient who voiced understanding and agreed. Electronically signed by: CLEVELAND Patel CNP 06/25/2023 10:02 AM Procedure: Trigger point injections into posterior cervical muscles. With the patient is sitting position patient received trigger point injection into the posterior cervical, shoulder muscles. The injections were performed with 9 mL's of 1% lidocaine and trace of Kenalog. Patient injections were performed as follows: 1. Right trapezius 3 trigger point injections. 2. Left trapezius 3 trigger point injections. 3. Right splenius capitis 1 trigger point injection 4. Left splenius capitis 1 injection. 5. Right levator scapula 1 injection 6. Left levator scapula 1 injection. CLEVELAND Patel CNP documented in this [facility]09-25-2023 History of Present illness Narrative* CLEVELAND Patel CNP - 05/17/2023 12:00 PM EDT DEPARTMENT OF NEUROLOGY BOTOX PROCEDURE NOTE FOR HEADACHE Date: 05/17/23 Patient: Michelle Carlin : 1980 Diagnosis: Chronic migraine without aura, intractable, without status migrainosus [G43.719] Procedure: Botox injections into the scalp and posterior cervical muscles. Prior to procedure risks, benefits, alternatives, and potential side effects were reviewed with patient. Specifically reviewed possible risk of temporary muscle weakness. All questions were answered,patient expressed understanding, verbal consent given for procedure. No numbing spray applied/removed. Botox was injected with the parameters below: With the patient in sitting position, she received Botox injections in the neck and skull muscles. Patient receive the following doses: 1. R Frontalis 10 units 2. L Frontalis 10 units 3. R Enterprise Systems Architect 10 units 4. L Enterprise Systems Architect 10 units 5. R Temporalis 30 units 6. L Temporalis 30 units 7. R Occipitalis 30 units 8. L Occipitalis 30 units 9. R Trapezious 20 units 10.L Trapezious 20 units Total units injected 200 units. Units discarded 0 units. Comments: The patient states an improvement in migraine frequency and severity of at least 75% frombaseline. For the acute treatment of migraine the patient has used Nurtec with good results along with Fioricet. The patient states headaches have again increased as she is due again for Botox. Patient has migraine pain today. Discussed trigger point injections as a treatment option which the patient was open to trying. TPI provided as documented below. The patient will follow up in the neurologyclinic in about 3 months, sooner if needed. [x] Pt tolerated procedure well. Pt advised to avoid exercise or strenuous physical activity for 24hours. Post treatment expectations reviewed in detail. CLEVELAND Patel CNP 05/17/23 Procedure: Trigger point injections into posterior cervical muscles. With the patient is sitting position patient received trigger point injection into the posterior cervical, shoulder muscles. The injections were performed with 9 mL's of 1% lidocaine and trace of Kenalog. Patient injections were performed as follows: 1. Right trapezius 3 trigger point injections. 2. Left trapezius 3 trigger point injections. 3. Right splenius capitis 1 trigger point injection 4. Left splenius capitis 1 injection. 5. Right levator scapula 1 injection 6. Left levator scapula 1 injection. CLEVELAND Patel CNP 05/17/23 * Karen Nguyen MA - 05/17/2023 12:00 PM EDT Administrations This Visit onabotulinumtoxin A (BOTOX) injection 200 Units Admin Date 03/16/2023 Action Given Dose 200 Units Route IntraMUSCular Site Other Administered By MARIEL Ordering Provider: Mariana Acuña [facility]:[id number] Lot#: [id number] Administrative Job Titles: [employer] Patient Supplied?: No, buy and bill documented in this [facility]08-09-2023 History of Present illness Narrative* CLEVELAND Patel CNP - 03/31/2023 1:45 PM EDT [facility] Primary Care Physician: Mark Shaabzz Chief Complaint: Chief Complaint Patient presents with Procedure TPI Main Diagnosis: Diagnosis Plan 1. Chronic migraine without aura, intractable, without status migrainosus lidocaine (Xylocaine) 1 %injection 9 mL triamcinolone acetonide (Kenalog) injection 10 mg History: given by the patient and EMR. EMR was personally reviewed prior to today's visit and included review of prior notes and intermediate communications. HPI: Ms. Michelle Carlin is a 42 y.o. female who is seen in the NEUROLOGY CLINIC of [facility] for migraines. Patient states she has suffered migraines since 2006. Patient has been on fioricet for abortive which worked for awhile but unfortunately no longer is as effective. She was placed on Depakoteover 6 months ago as preventative and states that this worked slightly at first but no longer is working to prevent them. Patient states her headaches are frontal/temporal, bilateral. She describes her pain as a dull pain. She has associated symptoms of photophobia, phonophobia, visual aura, nausea, and dizziness. Patient complains of having headaches 6 out of 10 days with 60 % of the headaches evolving into a migraine. Patient states she turned 41 and underwent botox injections (cosmetically) and she states she noticed that this improved her migraines. Patient is positive for thyroid disease. She has family history of migraines with her Mother. Other family history: Cancer, diabetes, and hypertension. Patient is a non-smoker and drinks alcohol occasionally. The last visit was 02/10/2023 with this provider where the patient received Botox injections and TPIfor the prevention of migraine pain. Headache characteristics: Description of pain: throbbing pain, bilateral in the frontal area, bilateral in the temporal area. Duration of individual headaches: 4-36 hour(s), frequency weekly. Associated symptoms: aura, light sensitivity, nausea, visual disturbance, and sound sensitivity. Pain relief: prescription medications - triptan therapy. Precipitating factors: stress and weather changes. INTERVAL HISTORY: Today, the patient returns for follow up of migraine control after receiving Botox injections and trigger point injections for the prevention and treatment of migraine. The patient states Botox is helping control migraine pain. The patient reports increased neck and shoulder pain for a week following TPI, but she had a fall and feels like it may have contributed to her pain. The patient would like to receive TPI again today. TPI provided as documented below. Patient denies any side effects from medications.. Current migraine Meds: Botox Fioricet Nurtec Side effects: No known side effects Previous medication trials: Imitrex Maxalt Emgality Phenergan Benedryl Topamax Ubrelvy Amitriptyline Nortriptyline History reviewed. No pertinent past medical history. Past Surgical History: Procedure Laterality Date COLPOSCOPY 2014 HYSTEROSCOPY 2015 plus D&C OOPHORECTOMY Left 2009 OVARIAN CYST SURGERY Right 2013 Allergies Allergen Reactions Amoxicillin-Pot Clavulanate Other reaction(s): Hives and/or rash Hydrocodone-Acetaminophen Nausea And Vomiting Other reaction(s): Severe nausea & vomiting, Vomiting Tramadol Hallucinations @[email or web address]@ Current Outpatient Medications Medication Sig Dispense Refill ALPRAZolam (Xanax) 0.5 MG tablet Bacillus Coagulans-Inulin (Probiotic) 1-250 BILLION-MG capsule Take by mouth. [id number]-bnhmbvehqbcrf-hcjcewle 50-325-40 MG tablet TAKE 1 TABLET BY MOUTH EVERY 6 HOURS IF NEEDED FOR HEADACHE cholecalciferol (Vitamin D-3) 50 MCG (2000 UT) capsule Take by mouth. estradiol (Estrace) 2 MG tablet Take 2 mg by mouth daily. levothyroxine (Synthroid, Levoxyl) 50 MCG tablet Take 50 mcg by mouth daily. lisdexamfetamine (Vyvanse) 30 MG capsule Take 30 mg by mouth every morning. ondansetron ODT (Zofran-ODT) 4 MG disintegrating tablet dissolve 1 tablet under the tongue every 8 hours if needed for nausea OR vomiting Strength: 4 mg 60 tablet 2 Rimegepant Sulfate (Nurtec) 75 MG tablet dispersible TAKE 75 MG BY MOUTH ONCE EVERY OTHER DAY (MIGRAINE) 16 tablet 5 therapeutic multivitamin-minerals (Theragran-M) tablet Take 1 tablet by mouth daily. tiZANidine (Zanaflex) 4 MG tablet 0 Refill(s) Current Facility-Administered Medications Medication Dose Route Frequency Provider Last Rate Last Admin lidocaine (Xylocaine) 1 % injection 9 mL 9 mL IntraDERmal Once CLEVELAND Patel CNP triamcinolone acetonide (Kenalog) injection 10 mg 10 mg IntraMUSCular Once CLEVELAND Patel CNP Family History Problem Relation Name Age of Onset High Blood Pressure Mother High Blood Pressure Father Cancer Other great Mat grandma pancreatic Other ([id number]) Mother fibromyalgia, anxiety issues Cancer Mother thyroid Cancer Paternal Grandmother breast and ovarian Cancer Other 2n cousin-paternal breast Diabetes Mother Cancer Mother's Sister breast Cancer Father's Sister skin Social Connections: Not on file REVIEW OF SYSTEMS: Review of Systems Constitutional: Positive for appetite change. Negative for activity change and chills. HENT: Positive for sinus pressure. Negative for ear pain, facial swelling, mouth sores, rhinorrhea,sinus pain and tinnitus. Eyes: Positive for visual disturbance. Negative for photophobia and pain. Respiratory: Negative for cough and chest tightness. Gastrointestinal: Positive for nausea. Negative for abdominal pain and vomiting. Endocrine: Negative for cold intolerance and heat intolerance. Genitourinary: Negative for difficulty urinating. Musculoskeletal: Positive for back pain, neck pain and neck stiffness. Allergic/Immunologic: Positive for environmental allergies. Negative for food allergies. Neurological: Positive for numbness and headaches. Negative for dizziness, tremors, syncope, speechdifficulty and weakness. Hematological: Does not bruise/bleed easily. Psychiatric/Behavioral: Negative for confusion, decreased concentration and hallucinations. The patient is not nervous/anxious. All other systems reviewed and are negative. PHYSICAL EXAM: BP 130/88 (BP Location: Right arm) Pulse 90 Ht 5' 4 (1.626 m) Wt 127 lb (57.6 kg) BMI 21.80 kg/m Physical Exam Vitals and nursing note reviewed. Constitutional: Appearance: Normal appearance. She is normal weight. HENT: Head: Normocephalic. Nose: Nose normal. Eyes: Extraocular Movements: Extraocular movements intact. Conjunctiva/sclera: Conjunctivae normal. Pupils: Pupils are equal, round, and reactive to light. Pulmonary: Effort: Pulmonary effort is normal. Musculoskeletal: General: Normal range of motion. Cervical back: Normal range of motion. Skin: General: Skin is warm and dry. Neurological: General: No focal deficit present. Mental Status: She is alert and oriented to person, place, and time. Mental status is at baseline. Psychiatric: Mood and Affect: Mood normal. Behavior: Behavior normal. Thought Content: Thought content normal. Judgment: Judgment normal. Neuro: Alert and oriented x4. Language: fluent and prosodic. Content and vocabulary reasonable for age and education level. Attention and Concentration intact Fund of knowledge: Knowledge of current events demonstrated. CN II: PERRLA CN III, IV, : EOM intact, no end-gaze nystagmus CN VII: smiling and tight eye closure symmetric CN VIII: grossly intact Gait: routine gait steady ASSESSMENT: 42 y.o. female with past medical history as above who presents for follow up evaluation of migrainewith improvement on current medication regimen. IMPRESSION: Diagnosis Plan 1. Chronic migraine without aura, intractable, without status migrainosus lidocaine (Xylocaine) 1 %injection 9 mL triamcinolone acetonide (Kenalog) injection 10 mg PLAN: 1. TPI provided as documented below. 2. Patient will follow up in about 6 weeks for Botox injections, sooner if needed. I hope that all of your questions and concerns were addressed during today's visit. Please don't hesitate to call the Department of Neurology at [phone] for any further concerns. Sincerely, CLEVELAND Patel CNP The above diagnosis and management plan were discussed at length with the patient who voiced understanding and agreed. Electronically signed by: CLEVELAND Patel CNP 03/31/2023 1:59 PM Procedure: Trigger point injections into posterior cervical muscles. With the patient is sitting position patient received trigger point injection into the posterior cervical, shoulder muscles. The injections were performed with 9 mL's of 1% lidocaine and trace of Kenalog. Patient injections were performed as follows: 1. Right trapezius 3 trigger point injections. 2. Left trapezius 3 trigger point injections. 3. Right splenius capitis 1 trigger point injection 4. Left splenius capitis 1 injection. 5. Right levator scapula 1 injection 6. Left levator scapula 1 injection. CLEVELAND Patel CNP documented in this [facility]SM[facility] [id number] Telephone encounter Note* Telephone Encounter - Savana Wayne - 02/25/2023 3:07 PM EDT Noted --[id number] Miscellaneous Notes* Telephone Encounter - Savana Wayne - 02/25/2023 3:07 PM EDT Noted --Scheduled pt * Telephone Encounter - Veronique Pike MA - 02/25/2023 3:01 PM EDT FYI * Telephone Encounter - Kacey Okeefe - 02/25/2023 2:41 PM EDT Judy from [facility] wanted Savana to know that they received the order for the pt's MRI and no authorization is required. Please advise. documented in this encounterSMag[facility] [id number] Telephone encounter Note* Telephone Encounter - Veronique Pike MA - 02/25/2023 3:01 PM EDT FYI [id number] Telephone encounter Note* Telephone Encounter - Kacey Okeefe - 02/25/2023 2:41 PM EDT Judy from [facility] wanted Savana to know that they received the order for the pt's MRI and no authorization is required. Please advise. [id number] History of Present illness Narrative* Mariana Acuña APRN - SUDHAKAR - 02/10/2023 1:00 PM EDT DEPARTMENT OF NEUROLOGY BOTOX PROCEDURE NOTE FOR HEADACHE Date: 02/10/23 Patient: Michelle Carlin : 1980 Diagnosis: Chronic migraine without aura, intractable, without status migrainosus [G43.719] Procedure: Botox injections into the scalp and posterior cervical muscles. Prior to procedure risks, benefits, alternatives, and potential side effects were reviewed with patient. Specifically reviewed possible risk of temporary muscle weakness. All questions were answered,patient expressed understanding, verbal consent given for procedure. No numbing spray applied/removed. Botox was injected with the parameters below: With the patient in sitting position, she received Botox injections in the neck and skull muscles. Patient receive the following doses: 1. R Frontalis 10 units 2. L Frontalis 10 units 3. R Enterprise Systems Architect 10 units 4. L Enterprise Systems Architect 10 units 5. R Temporalis 30 units 6. L Temporalis 30 units 7. R Occipitalis 30 units 8. L Occipitalis 30 units 9. R Trapezious 20 units 10.L Trapezious 20 units Total units injected 200 units. Units discarded 0 units. Comments: The patient states an improvement in migraine frequency and severity of at least 75% frombaseline. For the acute treatment of migraine the patient has used Nurtec with good results along with Fioricet. The patient states headaches have again increased as she is due again for Botox. Patient has migraine pain today. The patient reports increased stressors with school and home life along with working. Discussed trigger point injections as a treatment option which the patient was open totrying. TPI provided as documented below. Discussed also qulipta in place of every other day dosingof Nurtec. Samples of Qulipta provided along with instructions for use. Patient advised to start in about 2 weeks to first determine the effectiveness of TPI. The patient will follow up in the neurology clinic in about 3 months, sooner if needed. [x] Pt tolerated procedure well. Pt advised to avoid exercise or strenuous physical activity for 24hours. Post treatment expectations reviewed in detail. CLEVELAND Patel CNP 02/10/23 Procedure: Trigger point injections into posterior cervical muscles. With the patient is sitting position patient received trigger point injection into the posterior cervical, shoulder muscles. The injections were performed with 9 mL's of 1% lidocaine and trace of Kenalog. Patient injections were performed as follows: 1. Right trapezius 3 trigger point injections. 2. Left trapezius 3 trigger point injections. 3. Right splenius capitis 1 trigger point injection 4. Left splenius capitis 1 injection. 5. Right levator scapula 1 injection 6. Left levator scapula 1 injection. CLEVELAND Patel CNP 02/10/23 documented in this [facility]06-21-2023 History of Present illness Narrative* CLEVELAND Patel CNP - 02/10/2023 1:00 PM EDT DEPARTMENT OF NEUROLOGY BOTOX PROCEDURE NOTE FOR HEADACHE Date: 02/10/23 Patient: Michelle Carlin : 1980 Diagnosis: Chronic migraine without aura, intractable, without status migrainosus [G43.719] Procedure: Botox injections into the scalp and posterior cervical muscles. Prior to procedure risks, benefits, alternatives, and potential side effects were reviewed with patient. Specifically reviewed possible risk of temporary muscle weakness. All questions were answered,patient expressed understanding, verbal consent given for procedure. No numbing spray applied/removed. Botox was injected with the parameters below: With the patient in sitting position, she received Botox injections in the neck and skull muscles. Patient receive the following doses: 1. R Frontalis 10 units 2. L Frontalis 10 units 3. R Enterprise Systems Architect 10 units 4. L Enterprise Systems Architect 10 units 5. R Temporalis 30 units 6. L Temporalis 30 units 7. R Occipitalis 30 units 8. L Occipitalis 30 units 9. R Trapezious 20 units 10.L Trapezious 20 units Total units injected 200 units. Units discarded 0 units. Comments: The patient states an improvement in migraine frequency and severity of at least 75% frombaseline. For the acute treatment of migraine the patient has used Nurtec with good results along with Fioricet. The patient states headaches have again increased as she is due again for Botox. Patient has migraine pain today. The patient reports increased stressors with school and home life along with working. Discussed trigger point injections as a treatment option which the patient was open totrying. TPI provided as documented below. Discussed also qulipta in place of every other day dosingof Nurtec. Samples of Qulipta provided along with instructions for use. Patient advised to start in about 2 weeks to first determine the effectiveness of TPI. The patient will follow up in the neurology clinic in about 3 months, sooner if needed. [x] Pt tolerated procedure well. Pt advised to avoid exercise or strenuous physical activity for 24hours. Post treatment expectations reviewed in detail. CLEVELAND Patel CNP 02/10/23 Procedure: Trigger point injections into posterior cervical muscles. With the patient is sitting position patient received trigger point injection into the posterior cervical, shoulder muscles. The injections were performed with 9 mL's of 1% lidocaine and trace of Kenalog. Patient injections were performed as follows: 1. Right trapezius 3 trigger point injections. 2. Left trapezius 3 trigger point injections. 3. Right splenius capitis 1 trigger point injection 4. Left splenius capitis 1 injection. 5. Right levator scapula 1 injection 6. Left levator scapula 1 injection. CLEVELAND Patel CNP 02/10/23 * Marilee Collins MA - 02/10/2023 1:00 PM EDT Administrations This Visit onabotulinumtoxin A (BOTOX) injection 200 Units Admin Date 02/19/23 Action Given Dose 200 Units Route IntraMUSCular Site Other Administered By CLEVELAND Patel CNP Ordering Provider: CLEVELAND Patel CNP [facility]: [id number] Lot#: [id number] Administrative Job Titles: [employer] Patient Supplied?: No documented in this encounterSMagruder Memorial [id number] Telephone encounter Note* Telephone Encounter - CLEVELAND Patel CNP - 01/27/2023 12:09 PM EDT Requested Prescriptions Signed Prescriptions Disp Refills Rimegepant Sulfate (Nurtec) 75 MG tablet dispersible 16 tablet 5 Sig: TAKE 75 MG BY MOUTH ONCE EVERY OTHER DAY (MIGRAINE) Authorizing Provider: MARIANA ACUÑA [id number] Miscellaneous Notes* Telephone Encounter - CLEVELAND Patel CNP - 01/27/2023 12:09 PM EDT Requested Prescriptions Signed Prescriptions Disp Refills Rimegepant Sulfate (Nurtec) 75 MG tablet dispersible 16 tablet 5 Sig: TAKE 75 MG BY MOUTH ONCE EVERY OTHER DAY (MIGRAINE) Authorizing Provider: MARIANA ACUÑA documented in this [facility]04-06-2023 Note ORIGINAL EXAMINATION: TWO XRAY VIEWS OF THE CHEST11/26/2022 8:01 am XR Chest two views COMPARISON: 09/14/2022 HISTORY: ORDERING SYSTEM PROVIDED HISTORY: Reason for Exam: occupational exposure, recent exposure to TB FINDINGS: No suspicious nodule, acute infiltrate, consolidation,mass, pneumothorax, pleural fluid, or vascular congestion is seen. Heart size and mediastinal contours are within normal limits for age and projection. No acute skeletal abnormality. IMPRESSION: No active disease is seen in the lungs. Interpreted by: Gregory Hubbard MD Preliminary Report By: Gregory Hubbard MD Electronically signed By Gregory Hubbard MD Dictated Date: 11/26/2022 11:32:02 PM Prelim Date: 11/26/2022 11:32:45 PM Sign Date: 11/26/2022 11:32:45 PM Ordering Provider: [id number] Note ORIGINAL EXAMINATION: TWO XRAY VIEWS OF THE CHEST11/26/2022 8:01 am XR Chest two views COMPARISON: 09/14/2022 HISTORY: ORDERING SYSTEM PROVIDED HISTORY: Reason for Exam: occupational exposure, recent exposure to TB FINDINGS: No suspicious nodule, acute infiltrate, consolidation,mass, pneumothorax, pleural fluid, or vascular congestion is seen. Heart size and mediastinal contours are within normal limits for age and projection. No acute skeletal abnormality. IMPRESSION: No active disease is seen in the lungs. Interpreted by: Gregory Hubbard MD Preliminary Report By: Gregory Hubbard MD Electronically signed By Gregory Hubbard MD Dictated Date: 11/26/2022 11:32:02 PM Prelim Date: 11/26/2022 11:32:45 PM Sign Date: 11/26/2022 11:32:45 PM Ordering Provider: [facility] REFERRINGMarietta Osteopathic [id number] History of Present illness Narrative* CLEVELAND Patel CNP - 11/04/2022 3:00 PM EDT DEPARTMENT OF NEUROLOGY BOTOX PROCEDURE NOTE FOR HEADACHE Date: 11/04/22 Patient: Michelle Carlin : 1980 Diagnosis: Chronic migraine without aura, intractable, without status migrainosus [G43.719] Procedure: Botox injections into the scalp and posterior cervical muscles. Prior to procedure risks, benefits, alternatives, and potential side effects were reviewed with patient. Specifically reviewed possible risk of temporary muscle weakness. All questions were answered,patient expressed understanding, verbal consent given for procedure. No numbing spray applied/removed. Botox was injected with the parameters below: With the patient in sitting position, she received Botox injections in the neck and skull muscles. Patient receive the following doses: 1. R Frontalis 10 units 2. L Frontalis 10 units 3. R Enterprise Systems Architect 10 units 4. L Enterprise Systems Architect 10 units 5. R Temporalis 30 units 6. L Temporalis 30 units 7. R Occipitalis 30 units 8. L Occipitalis 30 units 9. R Trapezious 20 units 10.L Trapezious 20 units Total units injected 200 units. Units discarded 0 units. Comments: The patient states an improvement in migraine frequency and severity of at least 75% frombaseline. For the acute treatment of migraine the patient has used Nurtec with good results along with Fioricet. The patient states headaches have again increased as she is due again for Botox. Patient has migraine pain today. The patient reports increased stressors with school and home life along with working. The patient will follow up in the neurology clinic in about 3 months, sooner if needed. [x] Pt tolerated procedure well. Pt advised to avoid exercise or strenuous physical activity for 24hours. Post treatment expectations reviewed in detail. CLEVELAND Patel CNP 11/04/22 * Veronique Pike MA - 11/04/2022 3:00 PM EDT Administrations This Visit onabotulinumtoxin A (BOTOX) injection 200 Units Admin Date 11/04/2022 Action Given Dose 200 Units Route IntraMUSCular Site Other Administered By Mariana Acuña CNP Ordering Provider: Mariana Acuña CNP [facility]:[id number] Lot#: [id number] Administrative Job Titles: [employer] Patient Supplied?: No documented in this [facility] Author Diann Perez [facility] Note Date/Time January 19, 2025 12:09 pm [facility] Medical Records Department [address] [place] [address] Instructions for Home/Discharge Instructions 01/19/25 1207 MR#: [id number] Acct: [id number] Name: MICHELLE CARLIN Rep #:[id number] : 1980 44 From: Diann Perez MD PCP: Dr. Mark Shabazz MD [place] [facility] [place]ructions Diet Discharge Diet: No restrictions Activity Discharge Activity: May Not Drive (for 2-3 days or while taking narcotic pain meds.) May shower in (days): 1 Lifting Restrictions: 10 pounds for 1 week. Dressing / Incision Call your doctor if your incision/area has: Continuous Slow Oozing, Sudden Increased Bleeding, Increased Pain/ Swelling and Increased Redness Call your doctor if you observe: Fever of 101 or Higher Suture Line Care: Avoid Pulling/Pushing and Avoid Pinching/Bending Remove Dressing in: 1 day Additional Dressing/Incision Instructions:: Remove bulky dressing tomorrow. Mayleave op-site dressing for 3-4 days. Okay to remove Steri-Strips from the breast incision in 7 to 10 days. Follow Up Care Please Follow Up With: Diann Perez MD When: Please call [phone] for an appointment to be seen in 2 week. Test Results: Test results from this visit will be discussed in further detail at your follow- up appointment, if applicable. Discharge Plan Admission Attending Provider: Diann Perez Primary Care Provider: Mark Shabazz Instructions Print Language: Mongolian Discharge Orders/Prescriptions Prescriptions: New oxycodone 5 mg capsule 5 mg PO Q6H PRN (Reason: pain) 3 Days Qty: 5 0RF Continued multivitamin capsule 1 cap PO DAILY tizanidine 4 mg capsule 4 mg PO QHS lisdexamfetamine [Vyvanse] 30 mg capsule 30 mg PO QAM estradiol 2 mg tablet 2 mg PO QDAY levothyroxine 50 mcg tablet 50 mcg PO QDAY cholecalciferol (vitamin D3) 50 mcg (2,000 unit) capsule 50 mcg PO QDAY diphenhydramine HCl [Benadryl] 25 mg capsule 25 mg PO QHS magnesium 100 mg tablet 1,140 mg PO DAILY pfictabsvy-fcwvopgsozmjj-ibcx 1 TABLET tablet 1 tab PO QHS Referrals / Follow Up: Mark Shabazz MD [Primary Care Provider] - Disposition Disposition (needs filled in before D/C Order can be placed): Home, Self Care 01/19/25 1209<Electronically signed by Diann Perez MD>Diann Perez MD CC: Dr. Mark Shabazz MD ~ Signed [facility] Work Phone: Evaluation + Plan note No data available for this section [facility] Evaluation + Plan note Future Appointments Appointment Date:09/24/2023 09:45:00 AM Scheduled Provider:ROXANA CLARK MD Location:Gen Surg [facility] Appointment Type:GS IMAGE CONSULTANT [facility] Evaluation + Plan note Future Appointments Appointment Date:11/12/2023 09:45:00 AM Scheduled Provider:ROXANA CLARK MD Location:Gen Surg [facility] Appointment Type:GS OV Post Op [facility] Evaluation + Plan note Future Appointments Appointment Date:11/16/2023 09:30:00 AM Scheduled Provider:ROXANA CLARK MD Location:Gen Surg [facility] Appointment Type:GS OV Post Op [facility] Evaluation noteNo assessment information available [facility] Work Phone: evaluation note* Diagnosis Chronic migraine without aura, intractable, without status migrainosus- Primary documented in this encounter [facility] note* Diagnosis Chronic migraine without aura, intractable, without status migrainosus- Primary documented in this encounter [facility] note* Diagnosis Chronic migraine without aura, intractable, without status migrainosus- Primary documented in this encounter [facility] note* Diagnosis Chronic migraine without aura, intractable, without status migrainosus- Primary documented in this encounter [facility] note* Diagnosis Chronic migraine without aura, intractable, without status migrainosus- Primary documented in this encounter [facility] note* Diagnosis Chronic migraine without aura, intractable, without status migrainosus- Primary documented in this encounter [facility] note* Diagnosis Chronic migraine without aura, intractable, without status migrainosus- Primary documented in this encounter [facility] note* Diagnosis Myofascial pain- Primary Unspecified myalgia and myositis Chronic migraine without aura, intractable, without status migrainosus documented in this encounter [facility] note* Diagnosis Intractable chronic migraine without aura and without status migrainosus- Primary Myofascial pain Unspecified myalgia and myositis documented in this encounter [facility] note* Diagnosis Intractable chronic migraine without aura and without status migrainosus- Primary documented in this encounter [facility] note* Diagnosis Intractable chronic migraine without aura and without status migrainosus- Primary documented in this encounter [facility] note* Diagnosis Myofascial pain- Primary Unspecified myalgia and myositis Intractable chronic migraine without aura and without status migrainosus documented in this encounter [facility] note* Diagnosis Chronic migraine without aura, intractable, without status migrainosus- Primary documented in this encounter [facility] note* Diagnosis Intractable chronic migraine without aura and without status migrainosus- Primary Myofascial pain Unspecified myalgia and myositis documented in this encounter [facility] note* Diagnosis Intractable chronic migraine without aura and without status migrainosus- Primary Myofascial pain Unspecified myalgia and myositis [facility]* Diagnosis Intractable chronic migraine without aura and without status migrainosus- Primary Myofascial pain Unspecified myalgia and myositis [facility]* Diagnosis Intractable chronic migraine without aura and without status migrainosus- Primary Myofascial pain Unspecified myalgia and myositis [facility] Discharge instructions No data available for this section [facility] Progress note No data available for this section [facility] Reason for referral (narrative)No reason for referral information availableWUniversity [facility] Work Phone: Family History Relationship Condition Age at Onset Recorded Date/T raghav daughter Asthma Unknown father Hypertension Unknown mother Hypertension Unknown Disorder of thyroid Unknown Diabetes mellitus Unknown grandmother Malignant neoplasm of breast Unknown Malignant neoplasm Unknown Osteoporosis Unknown aunt Malignant neoplasm of breast Unknown Advance Directives Advance Directive Response Recorded Date/ Time Advance Directives No July 30, 2015 1:53pm Living Will No March 27, 2019 5:08pm Power of Charger Operator Helper No March 27 5:08pm Advance Directive Response Recorded Date/ Time Living Will No March 27, 2019 5:08pm Do you have a Healthcare Power of Charger Operator Helper? No March 27, 2019 5:08pm Advance Directives No July 30, 2015 1:53pm Advance Directive Response Recorded Date/ Time Do you have a Healthcare Power of Charger Operator Helper? No January 10, 2025 11:26am Advance Directives No July 30, 2015 1:53pm Summary Purpose Reason for Referral Specialty Diagnoses / Procedures Referred By Zain lindsay Referred To Contact Diagnoses Intractable chronic migraine without aura and without status migrainosus Mariana Acuña APRN - CNP [address] [place] [address] Referral ID Status Reason Start Date Expiration Date V isits Requested Visits Authorized [id number] Pending Review 02/16/2024 02/10/2025 1 1 Specialty Diagnoses / Procedures Referred By Contac t Referred To Contact Physical Therapy Diagnoses Chronic migraine without aura, intractable, without status migrainosus Procedures OK OFFICE/OUTPATIENT NEW HIGH MDM 60-74 MINUTES Mariana Acuña APRN - CNP [address] [place] [address] Referral ID Status Reason Start Date Expiration Date Visits Requested Visits Authorized [id number] Pending Review Eval and Treat 02/10/2023 08/09/2023 99 99 Specialty Diagnoses / Procedures Referred By Contac t Referred To Contact Radiology Diagnoses Chronic migraine without aura, intractable, without status migrainosus Procedures MR brain wo contrast Mariana Acuña, CONFIGURATION CONSULTANT - ELECTRICAL AND INSTRUMENT ENGINEER [address] [place] [address] Referral ID Status Reason Start Date Expiration Date V isits Requested Visits Authorized [id number] Pending Review 02/10/2023 08/09/2023 1 1 Specialty Diagnoses / Procedures Referred By Contheath t Referred To Contact Diagnoses Chronic migraine without aura, intractable, without status migrainosus Mariana Acuña, CONFIGURATION CONSULTANT - ELECTRICAL AND INSTRUMENT ENGINEER [address] [place] [address] Referral ID Status Reason Start Date Expiration Date V isits Requested Visits Authorized [id number] Pending Review 02/10/2023 08/09/2023 1 1 Chief Complaint and Reason for Visit Chief Complaint Admit Date E ORDERS August 15, 2024 6:33am 3 M FU September 19, 2024 1 0:18am Left breast lump per SD November 01, 2024 3:32pm Reason for Visit Admit Date Abdominal pain September 19, 2024 1 0:18am Gastroparesis September 19, 2024 1 0:18am IBD (inflammatory bowel disease) September 19, 2024 10:18am Irritable bowel syndrome with diarrhea J anuary 2024 10:18am Family history of breast cancer November 012024 3:32pm Left breast mass November 01, 2024 3:3 2pm Chief Complaint Admit Date E ORDERS August 15, 2024 6:33am 3 M FU September 19, 2024 1 0:18am Left breast lump per SD November 01, 2024 3:32pm LEFT BREAST LUMP November 14, 2024 8:3 2am Chief Complaint Admit Date E ORDERS August 15, 2024 6:33am 3 M FU September 19, 2024 1 0:18am Left breast lump per SD November 01, 2024 3:32pm LEFT BREAST LUMP November 14, 2024 8:3 2am BREAST LUMP November 22, 2024 9:28 am DENSE BREASTS, SIGNIFICANT FAMILY HX, LT LUMP November 28, 2024 11:08am Reason for Visit Admit Date Abdominal pain September 19, 2024 1 0:18am Gastroparesis September 19, 2024 1 0:18am IBD (inflammatory bowel disease) September 19, 2024 10:18am Irritable bowel syndrome with diarrhea J anuary 2024 10:18am Family history of breast cancer November 012024 3:32pm Left breast mass November 01, 2024 3:3 2pm At high risk for breast cancer November 9:28am Family history of breast cancer November 9:28am Left breast mass November 22, 2024 9:28 am Chief Complaint Admit Date 3 M FU September 19, 2024 1 0:18am Left breast lump per NH November 01, 2024 3:32pm LEFT BREAST LUMP November 14, 2024 8:3 2am BREAST LUMP November 22, 2024 9:28 am DENSE BREASTS, SIGNIFICANT FAMILY HX, LT LUMP November 28, 2024 11:08am DISCUSS MRI RESULTS & OPTIONS December 25, 2 025 2:58pm IBD January 03, 2025 11:59 am BACK PAIN January 09, 2025 10:54 am back pain neck pain January 09, 2025 11:17 am Reason for Visit Admit Date Abdominal pain September 19, 2024 1 0:18am Gastroparesis September 19, 2024 1 0:18am IBD (inflammatory bowel disease) September 19, 2024 10:18am Irritable bowel syndrome with diarrhea J anuary 2024 10:18am Family history of breast cancer November 012024 3:32pm Left breast mass November 01, 2024 3:3 2pm At high risk for breast cancer November 9:28am Family history of breast cancer November 9:28am Left breast mass November 22, 2024 9:28 am At high risk for breast cancer December 25, 2024 2:58pm Family history of breast cancer December 25, 2024 2:58pm Left breast mass December 25, 2024 2:58pm Migraines January 09, 2025 10:54 am Reason for Visit Admit Date Abdominal pain September 19, 2024 1 0:18am Gastroparesis September 19, 2024 1 0:18am IBD (inflammatory bowel disease) September 19, 2024 10:18am Irritable bowel syndrome with diarrhea J anuary 2024 10:18am Family history of breast cancer November 012024 3:32pm Left breast mass November 01, 2024 3:3 2pm At high risk for breast cancer November 9:28am Family history of breast cancer November 9:28am Left breast mass November 22, 2024 9:28 am At high risk for breast cancer December 25, 2024 2:58pm Family history of breast cancer December 25, 2024 2:58pm Left breast mass December 25, 2024 2:58pm Back pain January 09, 2025 10:54 am Cervical segment dysfunction January 09 025 10:54am Migraines January 09, 2025 10:54 am Neck pain January 09, 2025 10:54 am Segmental and somatic dysfunction of tho racic region January 09, 2025 10:54am Segmental dysfunction of lumbar region M ay 2024 10:54am Chief Complaint Admit Date Left breast lump per NH November 01, 2024 3:32pm LEFT BREAST LUMP November 14, 2024 8:3 2am BREAST LUMP November 22, 2024 9:28 am DENSE BREASTS, SIGNIFICANT FAMILY HX, LT LUMP November 28, 2024 11:08am DISCUSS MRI RESULTS & OPTIONS December 25 025 2:58pm IBD January 03, 2025 11:59 am BACK PAIN January 09, 2025 10:54 am back pain neck pain January 09, 2025 11:17 am Breast, Biopsy,US Guided NL Left breast excisional January 19, 2025 10:01am Breast, Biopsy,US Guided NL Left breast excisional January 19, 2025 10:26am Reason for Visit Admit Date Family history of breast cancer November 012024 3:32pm Left breast mass November 01, 2024 3:3 2pm At high risk for breast cancer November 9:28am Family history of breast cancer November 9:28am Left breast mass November 22, 2024 9:28 am At high risk for breast cancer December 25, 2024 2:58pm Family history of breast cancer December 25, 2024 2:58pm Left breast mass December 25, 2024 2:58pm Back pain January 09, 2025 10:54 am Cervical segment dysfunction January 09 025 10:54am Migraines January 09, 2025 10:54 am Neck pain January 09, 2025 10:54 am Segmental and somatic dysfunction of tho racic region January 09, 2025 10:54am Segmental dysfunction of lumbar region M ay 2024 10:54am Chief Complaint Admit Date Left breast lump per NH November 01, 2024 3:32pm LEFT BREAST LUMP November 14, 2024 8:3 2am BREAST LUMP November 22, 2024 9:28 am DENSE BREASTS, SIGNIFICANT FAMILY HX, LT LUMP November 28, 2024 11:08am DISCUSS MRI RESULTS & OPTIONS December 25 2:58pm IBD January 03, 2025 11:59 am BACK PAIN January 09, 2025 10:54 am back pain neck pain January 09, 2025 11:17 am Breast, Biopsy,US Guided NL Left breast excisional January 19, 2025 10:01am Breast, Biopsy,US Guided NL Left breast excisional January 19, 2025 10:26am BACK PAIN January 23, 2025 12:53 pm Back pain January 29, 2025 4:11p m Reason for Visit Admit Date Family history of breast cancer November 012024 3:32pm Left breast mass November 01, 2024 3:3 2pm At high risk for breast cancer November 9:28am Family history of breast cancer November 9:28am Left breast mass November 22, 2024 9:28 am At high risk for breast cancer December 25, 2024 2:58pm Family history of breast cancer December 25, 2024 2:58pm Left breast mass December 25, 2024 2:58pm Back pain January 09, 2025 10:54 am Cervical segment dysfunction January 09 025 10:54am Migraines January 09, 2025 10:54 am Neck pain January 09, 2025 10:54 am Segmental and somatic dysfunction of tho racic region January 09, 2025 10:54am Segmental dysfunction of lumbar region M ay 2024 10:54am Cervical segment dysfunction January 23 025 12:53pm Segmental and somatic dysfunction of tho racic region January 23, 2025 12:53pm Segmental dysfunction of lumbar region J une 2024 12:53pm Cervical segment dysfunction January 29 4:11pm Segmental and somatic dysfunction of tho racic region January 29, 2025 4:11pm Segmental dysfunction of lumbar region J une 2024 4:11pm Chief Complaint Admit Date Left breast lump per NH November 01, 2024 3:32pm LEFT BREAST LUMP November 14, 2024 8:3 2am BREAST LUMP November 22, 2024 9:28 am DENSE BREASTS, SIGNIFICANT FAMILY HX, LT LUMP November 28, 2024 11:08am DISCUSS MRI RESULTS & OPTIONS December 25 025 2:58pm IBD January 03, 2025 11:59 am BACK PAIN January 09, 2025 10:54 am back pain neck pain January 09, 2025 11:17 am Breast, Biopsy,US Guided NL Left breast excisional January 19, 2025 10:01am Breast, Biopsy,US Guided NL Left breast excisional January 19, 2025 10:26am BACK PAIN January 23, 2025 12:53 pm Reason for Visit Admit Date Family history of breast cancer November 012024 3:32pm Left breast mass November 01, 2024 3:3 2pm At high risk for breast cancer November 9:28am Family history of breast cancer November 9:28am Left breast mass November 22, 2024 9:28 am At high risk for breast cancer December 25, 2024 2:58pm Family history of breast cancer December 25, 2024 2:58pm Left breast mass December 25, 2024 2:58pm Back pain January 09, 2025 10:54 am Cervical segment dysfunction January 09 10:54am Migraines January 09, 2025 10:54 am Neck pain January 09, 2025 10:54 am Segmental and somatic dysfunction of tho racic region January 09, 2025 10:54am Segmental dysfunction of lumbar region M ay 2024 10:54am Cervical segment dysfunction January 23 12:53pm Segmental and somatic dysfunction of tho racic region January 23, 2025 12:53pm Segmental dysfunction of lumbar region J une 2024 12:53pm Chief Complaint Admit Date Left breast lump per NH November 01, 2024 3:32pm LEFT BREAST LUMP November 14, 2024 8:3 2am BREAST LUMP November 22, 2024 9:28 am DENSE BREASTS, SIGNIFICANT FAMILY HX, LT LUMP November 28, 2024 11:08am DISCUSS MRI RESULTS & OPTIONS December 25 2:58pm IBD January 03, 2025 11:59 am BACK PAIN January 09, 2025 10:54 am back pain neck pain January 09, 2025 11:17 am Breast, Biopsy,US Guided NL Left breast excisional January 19, 2025 10:01am Breast, Biopsy,US Guided NL Left breast excisional January 19, 2025 10:26am BACK PAIN January 23, 2025 12:53 pm Back pain January 29, 2025 4:11p m GALLSTONES February 06, 2025 7:50 am ACUPUNCTURE/ADJUSTMENT February 06, 2025 9 :53am Reason for Visit Admit Date Family history of breast cancer November [id number] 3:32pm Left breast mass November 01, 2024 3:3 2pm At high risk for breast cancer November 9:28am Family history of breast cancer November 9:28am Left breast mass November 22, 2024 9:28 am At high risk for breast cancer December 25, 2024 2:58pm Family history of breast cancer December 25, 2024 2:58pm Left breast mass December 25, 2024 2:58pm Back pain January 09, 2025 10:54 am Cervical segment dysfunction January 09 10:54am Migraines January 09, 2025 10:54 am Neck pain January 09, 2025 10:54 am Segmental and somatic dysfunction of tho racic region January 09, 2025 10:54am Segmental dysfunction of lumbar region M ay 2024 10:54am Cervical segment dysfunction January 23 025 12:53pm Segmental and somatic dysfunction of tho racic region January 23, 2025 12:53pm Segmental dysfunction of lumbar region J une 2024 12:53pm Cervical segment dysfunction January 29 025 4:11pm Segmental and somatic dysfunction of tho racic region January 29, 2025 4:11pm Segmental dysfunction of lumbar region J une 2024 4:11pm Back pain February 06, 2025 9:53 am Reason for Visit Admit Date Family history of breast cancer November [id number] 3:32pm Left breast mass November 01, 2024 3:3 2pm At high risk for breast cancer November 9:28am Family history of breast cancer November 9:28am Left breast mass November 22, 2024 9:28 am At high risk for breast cancer December 25, 2024 2:58pm Family history of breast cancer December 25, 2024 2:58pm Left breast mass December 25, 2024 2:58pm Back pain January 09, 2025 10:54 am Cervical segment dysfunction January 09 10:54am Neck pain January 09, 2025 10:54 am Segmental and somatic dysfunction of tho racic region January 09, 2025 10:54am Segmental dysfunction of lumbar region M ay 2024 10:54am Migraines January 09, 2025 10:54 am Cervical segment dysfunction January 23 12:53pm Segmental and somatic dysfunction of tho racic region January 23, 2025 12:53pm Segmental dysfunction of lumbar region J une 2024 12:53pm Cervical segment dysfunction January 29 4:11pm Segmental and somatic dysfunction of tho racic region January 29, 2025 4:11pm Segmental dysfunction of lumbar region J une 2024 4:11pm Back pain February 06, 2025 9:53 am Cervical segment dysfunction February 06, 2025 9:53am Segmental and somatic dysfunction of tho racic region February 06, 2025 9:53am Segmental dysfunction of lumbar region J une 2024 9:53am Migraines February 06, 2025 9:53 am Chief Complaint Admit Date Left breast lump per [facility] November 01, 2024 3:32pm LEFT BREAST LUMP November 14, 2024 8:3 2am BREAST LUMP November 22, 2024 9:28 am DENSE BREASTS, SIGNIFICANT FAMILY HX, LT LUMP November 28, 2024 11:08am DISCUSS MRI RESULTS & OPTIONS December 25 2:58pm IBD January 03, 2025 11:59 am BACK PAIN January 09, 2025 10:54 am back pain neck pain January 09, 2025 11:17 am Breast, Biopsy,US Guided NL Left breast excisional January 19, 2025 10:01am Breast, Biopsy,US Guided NL Left breast excisional January 19, 2025 10:26am BACK PAIN January 23, 2025 12:53 pm Back pain January 29, 2025 4:11p m GALLSTONES February 06, 2025 7:50 am ACUPUNCTURE/ADJUSTMENT February 06, 2025 9 :53am 4 M FU February 20, 2025 10:52 am Reason for Visit Admit Date Family history of breast cancer November [id number] 3:32pm Left breast mass November 01, 2024 3:3 2pm At high risk for breast cancer November 9:28am Family history of breast cancer November 9:28am Left breast mass November 22, 2024 9:28 am At high risk for breast cancer December 25, 2024 2:58pm Family history of breast cancer December 25, 2024 2:58pm Left breast mass December 25, 2024 2:58pm Back pain January 09, 2025 10:54 am Cervical segment dysfunction January 09 10:54am Neck pain January 09, 2025 10:54 am Segmental and somatic dysfunction of tho racic region January 09, 2025 10:54am Segmental dysfunction of lumbar region M 2024 10:54am Migraines January 09, 2025 10:54 am Cervical segment dysfunction January 23 12:53pm Segmental and somatic dysfunction of tho racic region January 23, 2025 12:53pm Segmental dysfunction of lumbar region [facility] 2024 12:53pm Cervical segment dysfunction January 29 4:11pm Segmental and somatic dysfunction of tho racic region January 29, 2025 4:11pm Segmental dysfunction of lumbar region [facility] 2024 4:11pm Back pain February 06, 2025 9:53 am Cervical segment dysfunction February 06, 2025 9:53am Segmental and somatic dysfunction of tho racic region February 06, 2025 9:53am Segmental dysfunction of lumbar region J une 2024 9:53am Migraines February 06, 2025 9:53 am Gastroparesis February 20, 2025 10:52 am Irritable bowel syndrome with diarrhea Jose trevor 2024 10:52am Additional Source Comments Goals (unrecognized section and content) Goals may be documented in a n alternate section No data available for this section No data available for this section No data available for this section No data available for this section No data available for this section No data available for this section No data available for this section No data available for this section No data available for this section No data available for this sectionGoals may be documented in an alternate sectionGoals may be documented in an alternate sectionGoals may be documented in an alternate sectionGoals may be documented in an alternate section Patient Care team informatio n (unrecognized section and content) Junior Programmer Analyst Relationship Specialty Start Date End Date Mark Shabazz [address] [place] [address] PCP - General 02/03/22 Junior Programmer Analyst Relationship Specialty Start Date End Date Mark Shabazz [address] [place] [address] PCP - General 02/03/22 Junior Programmer Analyst Relationship Specialty Start Date End Date Mark Shabazz [address] [place] [address] PCP - General 02/03/22 Junior Programmer Analyst Relationship Specialty Start Date End Date Mark Shabazz [address] [place] [address] PCP - General 02/03/22 Junior Programmer Analyst Relationship Specialty Start Date End Date Mark Shabazz [address] [place] [address] PCP - General 02/03/22 Junior Programmer Analyst Relationship Specialty Start Date End Date Mark Shabazz [address] [place] [address] PCP - General 02/03/22 Junior Programmer Analyst Relationship Specialty Start Date End Date Mark Shabazz [address] [place] [address] PCP - General 02/03/22 Junior Programmer Analyst Relationship Specialty Start Date End Date Mark Shabazz [address] [place] [address] PCP - General 02/03/22 Junior Programmer Analyst Relationship Specialty Start Date End Date Mark Shabazz [address] [place] [address] PCP - General 02/03/22 Junior Programmer Analyst Relationship Specialty Start Date End Date Mark Shabazz [address] [place] [address] PCP - General 02/03/22 Junior Programmer Analyst Relationship Specialty Start Date End Date Mark hSabazz [address] [place] [address] PCP - General 02/03/22 Junior Programmer Analyst Relationship Specialty Start Date End Date Mark Shabazz [address] [place] [address] PCP - General 02/03/22 Junior Programmer Analyst Relationship Specialty Start Date End Date Mark Shabazz [address] [place] [place] [address] PCP - General 02/03/22 Junior Programmer Analyst Relationship Specialty Start Date End Date Mark Shabazz [address] [place] [address] PCP - General 02/03/22 Junior Programmer Analyst Relationship Specialty Start Date End Date Mark Shabazz [address] [place] [address] PCP - General 02/03/22 Junior Programmer Analyst Relationship Specialty Start Date End Date Mark Shabazz [address] [place] [address] PCP - General 02/03/22 Junior Programmer Analyst Relationship Specialty Start Date End Date Mark Shabazz [address] [place] [address] PCP - General 02/03/22 Junior Programmer Analyst Relationship Specialty Start Date End Date Mark Shabazz [address] [place] [address] PCP - General 02/03/22 Junior Programmer Analyst Relationship Specialty Start Date End Date Mark Shabazz [address] [place] [address] PCP - General 02/03/22 Junior Programmer Analyst Relationship Specialty Start Date End Date Mark Shabazz [address] [place] [address] PCP - General 02/03/22 Junior Programmer Analyst Relationship Specialty Start Date End Date Mark Shabazz [address] [place] [address] PCP - General 02/03/22 Junior Programmer Analyst Relationship Specialty Start Date End Date Mark Shabazz [address] [place] [phone] PCP - General 02/03/22 Junior Programmer Analyst Relationship Specialty Start Date End Date Harika Mark Schneider [address] [place] [address] PCP - General 02/03/22 Team Status: Active Member Role Status Dates Dr. Mark Shabazz MD Primary Care Provider Acti ve Team Status: Inactive Member Role Status Dates Dr. Mark Shabazz MD Primary Care Provider Acti ve Start: August 15, 2024 End: August 15, 2024 GRAHAM Hung Attending Provider Active S tart: August 15, 2024 End: August 15, 2024 GRAHAM Hung Referring Provider Active S tart: August 15, 2024 End: August 15, 2024 Team Status: Inactive Member Role Status Dates Dr. Mark Shabazz MD Primary Care Provider Acti ve Start: September 19, 2024 End: September 19, 2024 Dr. Mark Shabazz MD Referring Provider Active Start: September 19, 2024 End: September 19, 2024 Dr. Unruly Toscano DO Attending Provider Active Start: September 19, 2024 End: September 19, 2024 Team Status: Inactive Member Role Status Dates Dr. Mark Shabazz MD Primary Care Provider Acti ve Start: November 01, 2024 End: November 01, 2024 Dr. Mark Shabazz MD Referring Provider Active Start: November 01, 2024 End: November 01, 2024 Mariana Cortez NP IMAGE CONSULTANT-C Attending Provider Active Start: November 01, 2024 End: November 01, 2024 Team Status: Inactive Member Role Status Dates Dr. Mark Shabazz MD Primary Care Provider Acti ve Start: November 01, 2024 End: November 01, 2024 Mariana Cortez NP IMAGE CONSULTANT-C Attending Provider Active Start: November 01, 2024 End: November 01, 2024 Mariana Cortez NP, IMAGE CONSULTANT-C Referring Provider Active Start: November 01, 2024 End: November 01, 2024 Team Status: Inactive Member Role Status Dates Dr. Mark Shabazz MD Primary Care Provider Acti ve Start: November 14, 2024 End: November 14, 2024 GRAHAM Baird Attending Provider Active Start: November 14, 2024 End: November 14, 2024 GRAHAM Baird Referring Provider Active Start: November 14, 2024 End: November 14, 2024 Team Status: Inactive Member Role Status Dates Dr. Mark Shabazz MD Primary Care Provider Acti ve Start: November 22, 2024 End: November 22, 2024 Dr. Mark Shabazz MD Referring Provider Active Start: November 22, 2024 End: November 22, 2024 Dr. Diann Perez MD Attending Provider Active Start: November 22, 2024 End: November 22, 2024 Team Status: Inactive Member Role Status Dates Dr. Mark Shabazz MD Primary Care Provider Acti ve Start: November 28, 2024 End: November 28, 2024 Dr. Diann Perez MD Attending Provider Active Start: November 28, 2024 End: November 28, 2024 Dr. Diann Perez MD Referring Provider Active Start: November 28, 2024 End: November 28, 2024 Junior Programmer Analyst Relationship Specialty Start Date End Date Mark Shabazz [address] [facility] [address] [place] [phone] PCP - General 02/03/22 Team Status: Inactive Member Role Status Dates Dr. Mark Shabazz MD Primary Care Provider Acti ve Start: December 25, 2024 End: December 25, 2024 Dr. Mark Shabazz MD Referring Provider Active Start: December 25, 2024 End: December 25, 2024 Dr. Diann Perez MD Attending Provider Active Start: December 25, 2024 End: December 25, 2024 Team Status: Active Member Role Status Dates Dr. Mark Shabazz MD Primary Care Provider Acti ve Start: January 03, 2025 Dr. Unruly Toscano DO Attending Provider Active Start: January 03, 2025 Dr. Unruly Toscano DO Referring Provider Active Start: January 03, 2025 Team Status: Inactive Member Role Status Dates Dr. Mark Shabazz MD Primary Care Provider Acti ve Start: January 09, 2025 End: January 09, 2025 Dr. Mark Shabazz MD Referring Provider Active Start: January 09, 2025 End: January 09, 2025 Dr. Mirna Gunderson DC Attending Provider Active S tart: January 09, 2025 End: January 09, 2025 Team Status: Active Member Role Status Dates Dr. Mark Shabazz MD Primary Care Provider Acti ve Start: January 09, 2025 Dr. Mirna Gunderson DC Attending Provider Active S tart: January 09, 2025 Dr. Mirna Gunderson DC Referring Provider Active S tart: January 09, 2025 Team Status: Inactive Member Role Status Dates Dr. Mark Shabazz MD Primary Care Provider Acti ve Start: January 03, 2025 End: January 03, 2025 Dr. Unruly Toscano DO Attending Provider Active Start: January 03, 2025 End: January 03, 2025 Dr. Unruly Toscano DO Referring Provider Active Start: January 03, 2025 End: January 03, 2025 Team Status: Inactive Member Role Status Dates Dr. Mark Shabazz MD Primary Care Provider Acti ve Start: January 09, 2025 End: January 09, 2025 Dr. Mirna Gunderson DC Attending Provider Active S tart: January 09, 2025 End: January 09, 2025 Dr. Mirna Gunderson DC Referring Provider Active S tart: January 09, 2025 End: January 09, 2025 Team Status: Active Member Role Status Dates Dr. Mark Shabazz MD Primary Care Provider Acti ve Start: January 19, 2025 Dr. Diann Perez MD Attending Provider Active Start: January 19, 2025 Dr. Diann Perez MD Referring Provider Active Start: January 19, 2025 Dr. Diann Perez MD Other Provider Active S tart: January 19, 2025 Team Status: Inactive Member Role Status Dates Dr. Mark Shabazz MD Primary Care Provider Acti ve Start: January 19, 2025 End: January 19, 2025 Dr. Diann Perez MD Attending Provider Active Start: January 19, 2025 End: January 19, 2025 Dr. Diann Perez MD Referring Provider Active Start: January 19, 2025 End: January 19, 2025 Team Status: Inactive Member Role Status Dates Dr. Mark Shabazz MD Primary Care Provider Acti ve Start: January 23, 2025 End: January 23, 2025 Dr. Mark Shabazz MD Referring Provider Active Start: January 23, 2025 End: January 23, 2025 Dr. Mirna Gunderson DC Attending Provider Active S tart: January 23, 2025 End: January 23, 2025 Team Status: Inactive Member Role Status Dates Dr. Mark Shabazz MD Primary Care Provider Acti ve Start: January 29, 2025 End: January 29, 2025 Dr. Mark Shabazz MD Referring Provider Active Start: January 29, 2025 End: January 29, 2025 Dr. Mirna Gunderson DC Attending Provider Active S tart: January 29, 2025 End: January 29, 2025 Junior Programmer Analyst Relationship Specialty Start Date End Date Mark Shabazz [address] [facility] [address] [place] [phone] PCP - General 02/03/22 Team Status: Active Member Role Status Dates Dr. Mark Shabazz MD Primary Care Provider Acti ve Start: February 06, 2025 Dr. Unruly Toscano DO Attending Provider Active Start: February 06, 2025 Dr. Unruly Toscano DO Referring Provider Active Start: February 06, 2025 Team Status: Inactive Member Role Status Dates Dr. Mark Shabazz MD Primary Care Provider Acti ve Start: February 06, 2025 End: February 06, 2025 Dr. Mark Shabazz MD Referring Provider Active Start: February 06, 2025 End: February 06, 2025 Dr. Mirna Gunderson DC Attending Provider Active S tart: February 06, 2025 End: February 06, 2025 Team Status: Inactive Member Role Status Dates Dr. Mark Shabazz MD Primary Care Provider Acti ve Start: February 06, 2025 End: February 06, 2025 Dr. Unruly Toscano DO Attending Provider Active Start: February 06, 2025 End: February 06, 2025 Dr. Unruly Toscano DO Referring Provider Active Start: February 06, 2025 End: February 06, 2025 Team Status: Active Member Role/Relationship Status Dates Dr. Mark Shabazz MD Primary Care Provider Acti ve Team Status: Inactive Member Role/Relationship Status Dates Dr. Mark Shabazz MD Primary Care Provider Acti ve Start: November 01, 2024 End: November 01, 2024 Dr. Mark Shabazz MD Referring Provider Active Start: November 01, 2024 End: November 01, 2024 Mariana Cortez IMAGE CONSULTANT, IMAGE CONSULTANT-C Attending Provider Active Start: November 01, 2024 End: November 01, 2024 Team Status: Inactive Member Role/Relationship Status Dates Dr. Mark Shabazz MD Primary Care Provider Acti ve Start: November 01, 2024 End: November 01, 2024 Mariana Cortez IMAGE CONSULTANT, IMAGE CONSULTANT-C Attending Provider Active Start: November 01, 2024 End: November 01, 2024 Mariana Cortez IMAGE CONSULTANT, IMAGE CONSULTANT-C Referring Provider Active Start: November 01, 2024 End: November 01, 2024 Team Status: Inactive Member Role/Relationship Status Dates Dr. Mark Shabazz MD Primary Care Provider Acti ve Start: November 14, 2024 End: November 14, 2024 GRAHAM Baird Attending Provider Active Start: November 14, 2024 End: November 14, 2024 GRAHAM Baird Referring Provider Active Start: November 14, 2024 End: November 14, 2024 Team Status: Inactive Member Role/Relationship Status Dates Dr. Mark Shabazz MD Primary Care Provider Acti ve Start: November 22, 2024 End: November 22, 2024 Dr. Mark Shabazz MD Referring Provider Active Start: November 22, 2024 End: November 22, 2024 Dr. Diann Perez MD Attending Provider Active Start: November 22, 2024 End: November 22, 2024 Team Status: Inactive Member Role/Relationship Status Dates Dr. Mark Shabazz MD Primary Care Provider Acti ve Start: November 28, 2024 End: November 28, 2024 Dr. Diann Perez MD Attending Provider Active Start: November 28, 2024 End: November 28, 2024 Dr. Diann Perez MD Referring Provider Active Start: November 28, 2024 End: November 28, 2024 Team Status: Inactive Member Role/Relationship Status Dates Dr. Mark Shabazz MD Primary Care Provider Acti ve Start: December 25, 2024 End: December 25, 2024 Dr. Mark Shabazz MD Referring Provider Active Start: December 25, 2024 End: December 25, 2024 Dr. Diann Perez MD Attending Provider Active Start: December 25, 2024 End: December 25, 2024 Team Status: Inactive Member Role/Relationship Status Dates Dr. Mark Shabazz MD Primary Care Provider Acti ve Start: January 03, 2025 End: January 03, 2025 Dr. Unruly Toscano DO Attending Provider Active Start: January 03, 2025 End: January 03, 2025 Dr. Unruly Toscano DO Referring Provider Active Start: January 03, 2025 End: January 03, 2025 Team Status: Inactive Member Role/Relationship Status Dates Dr. Mark Shabazz MD Primary Care Provider Acti ve Start: January 09, 2025 End: January 09, 2025 Dr. Mark Shabazz MD Referring Provider Active Start: January 09, 2025 End: January 09, 2025 Dr. Mirna Gunderson DC Attending Provider Active S tart: January 09, 2025 End: January 09, 2025 Team Status: Inactive Member Role/Relationship Status Dates Dr. Mark Shabazz MD Primary Care Provider Acti ve Start: January 09, 2025 End: January 09, 2025 Dr. Mirna Gunderson DC Attending Provider Active S tart: January 09, 2025 End: January 09, 2025 Dr. Mirna Gunderson DC Referring Provider Active S tart: January 09, 2025 End: January 09, 2025 Team Status: Active Member Role/Relationship Status Dates Dr. Mark Shabazz MD Primary Care Provider Acti ve Start: January 19, 2025 Dr. Diann Perez MD Attending Provider Active Start: January 19, 2025 Dr. Diann Perez MD Referring Provider Active Start: January 19, 2025 Dr. Diann Perez MD Other Provider Active S tart: January 19, 2025 Team Status: Inactive Member Role/Relationship Status Dates Dr. Mark Shabazz MD Primary Care Provider Acti ve Start: January 19, 2025 End: January 19, 2025 Dr. Diann Perez MD Attending Provider Active Start: January 19, 2025 End: January 19, 2025 Dr. Diann Perez MD Referring Provider Active Start: January 19, 2025 End: January 19, 2025 Team Status: Inactive Member Role/Relationship Status Dates Dr. Mark Shabazz MD Primary Care Provider Acti ve Start: January 23, 2025 End: January 23, 2025 Dr. Mark Shabazz MD Referring Provider Active Start: January 23, 2025 End: January 23, 2025 Dr. Mirna Gunderson DC Attending Provider Active S tart: January 23, 2025 End: January 23, 2025 Team Status: Inactive Member Role/Relationship Status Dates Dr. Mark Shabazz MD Primary Care Provider Acti ve Start: January 29, 2025 End: January 29, 2025 Dr. Mark Shabazz MD Referring Provider Active Start: January 29, 2025 End: January 29, 2025 Dr. Mirna Gunderson DC Attending Provider Active S tart: January 29, 2025 End: January 29, 2025 Team Status: Inactive Member Role/Relationship Status Dates Dr. Mark Shabazz MD Primary Care Provider Acti ve Start: February 06, 2025 End: February 06, 2025 Dr. Unruly Toscano DO Attending Provider Active Start: February 06, 2025 End: February 06, 2025 Dr. Unruly Toscano DO Referring Provider Active Start: February 06, 2025 End: February 06, 2025 Team Status: Inactive Member Role/Relationship Status Dates Dr. Mark Shabazz MD Primary Care Provider Acti ve Start: February 06, 2025 End: February 06, 2025 Dr. Mark Shabazz MD Referring Provider Active Start: February 06, 2025 End: February 06, 2025 Dr. Mirna Gunderson DC Attending Provider Active S tart: February 06, 2025 End: February 06, 2025 Team Status: Inactive Member Role/Relationship Status Dates Dr. Mark Shabazz MD Primary Care Provider Acti ve Start: February 20, 2025 End: February 20, 2025 Dr. Mark Shabazz MD Referring Provider Active Start: February 20, 2025 End: February 20, 2025 Dr. Unruly Toscano DO Attending Provider Active Start: February 20, 2025 End: February 20, 2025 Reason for Visit (unrecogniz ed section and content) Reason Comments Procedure Botox, TPI, Migraine Specialty Diagnoses / Procedures Referred By Contac t Referred To Contact Diagnoses Intractable chronic migraine without aura and without status migrainosus Mariana Acuña, CONFIGURATION CONSULTANT - ELECTRICAL AND INSTRUMENT ENGINEER [address] [place] [address] Phone: tel: fax: Referral ID Status Reason Start Date Expiration Date V isits Requested Visits Authorized [id number] Pending Review 12/12/2024 12/07/2025 1 1 Reason Comments Procedure Botox- Migraines Specialty Diagnoses / Procedures Referred By Contac t Referred To Contact Diagnoses Chronic migraine without aura, intractable, without status migrainosus Mariana Acuña CONFIGURATION CONSULTANT - ELECTRICAL AND INSTRUMENT ENGINEER [address] [place] [address] Referral ID Status Reason Start Date Expiration Date V isits Requested Visits Authorized [id number] Pending Review 11/04/2022 05/03/2023 1 1 Reason Comments Procedure Specialty Diagnoses / Procedures Referred By Contac t Referred To Contact Diagnoses Intractable chronic migraine without aura and without status migrainosus Mariana Acuña CONFIGURATION CONSULTANT - ELECTRICAL AND INSTRUMENT ENGINEER [address] [place] [address] Referral ID Status Reason Start Date Expiration Date V isits Requested Visits Authorized [id number] Pending Review 02/16/2024 02/10/2025 1 1 Referral ID Status Reason Start Date Expiration Date V isits Requested Visits Authorized [id number] Pending Review 11/23/2023 11/17/2024 1 1 Reason Comments Procedure Botox- TPI - Migrain es Referral ID Status Reason Start Date Expiration Date V isits Requested Visits Authorized [id number] Pending Review 08/17/2023 08/11/2024 1 1 Reason Comments Procedure Botox Referral ID Status Reason Start Date Expiration Date V isits Requested Visits Authorized [id number] Pending Review 05/17/2023 11/13/2023 1 1 Reason Comments Med Refill Reason Comments Procedure Botox- Migraine Referral ID Status Reason Start Date Expiration Date V isits Requested Visits Authorized [id number] Pending Review 02/10/2023 08/09/2023 1 1 Reason Onset Date Comments insurance 02/25/2023 Reason Comments Procedure TPI Reason Comments Procedure TPI Reason Onset Date Comments Other 07/28/2023 Reason Onset Date Comments Medication Problem 08/17/2023 Reason Onset Date Comments Med Management 08/24/2023 Rx. Nurtec Reason Onset Date Comments Other 04/13/2024 r/s Botox appt ( new insurance) Reason Onset Date Comments Med Refill 05/12/2024 Referral ID Status Reason Start Date Expiration Date V isits Requested Visits Authorized [id number] Pending Review 06/05/2024 05/31/2025 1 1 Reason Onset Date Comments Medication Problem 06/29/2024 Referral ID Status Reason Start Date Expiration Date V isits Requested Visits Authorized [id number] Pending Review 09/19/2024 09/14/2025 1 1 Reason Onset Date Comments Procedure 08/17/2024 Botox Referral ID Status Reason Start Date Expiration Date Visits Re quested Visits Authorized [id number] Closed 09/19/2024 09/14/2025 1 1 Reason Comments Follow-up TPI - Intractable mi graine Reason Comments Procedure INFORMATION SOURCE (unrecogn ized section and content) DATE CREATED AUTHOR 02/01/2023 [facility] DATE CREATED AUTHOR AUTHOR'S ORGANIZ ATION 02/01/2023 [facility] DATE CREATED AUTHOR AUTHOR'S ORGANIZ ATION 01/18/2024 [facility] ([place] DATE CREATED AUTHOR AUTHOR'S ORGANIZ ATION 01/24/2025 [facility] DATE CREATED AUTHOR AUTHOR'S ORGANIZ ATION 02/19/2025 [facility] FOR RECORDS PERTAINING TO PATIENTS WHO ARE OR HAVE BEEN ENROLLED IN A CHEMICAL DEPENDENCY/SUBSTANCEABUSE PROGRAM, SOME INFORMATION MAY BE OMITTED. This clinical summary was aggregated from multiple sources. Caution should be exercised in using it in the provision of clinical care. This summary normalizes information from multiple sources, and as a consequence, information in this document may materially change the coding, format and clinical context of patient data. In addition, data may be omitted in some cases. CLINICAL DECISIONS SHOULD BE BASED ON THE PRIMARY CLINICAL RECORDS. [facility] [employer] [facility]. provides no warranty or guarantee of the accuracy or completeness of information in this document.
[2025-02-21 08:13] LABS: CORTISOL AM 16.00 ug/dL (6.02-18.40); CRP < 3.00 mg/L (0.0-3.0); Follicle Stimulating Hormone 155.0 mIU/mL; Vitamin B12 1026 pg/mL (180-914)
[2025-02-23 12:08] LABS: PROGESTERONE 0.1 ng/mL (.); Vitamin D 1,25-Dihydroxy 40.2 pg/mL (24.8-81.5)
[2025-02-26 22:06] LABS: Dopamine, Pl 12.5 pg/mL (0.0-36.7); Epinephrine, Pl 39.0 pg/mL (0.0-55.4); Estrogen, Total, Serum 599 pg/mL (.); Gastrin, Serum 25 pg/mL (0-115); Norepinephrine, Pl 468 pg/mL (115-524); Testosterone, % Free 1.65 % (0.50-2.80); Testosterone, Free 0.10 ng/dL (0.10-0.85)
== END | disposition home or self-care (01) ==
PROVIDERS: Chiropractor; PCP Family Medicine; Referring Provider Internal Medicine Gastroenterology; Visit Provider Internal Medicine Gastroenterology
DX: K58.0 Irritable bowel syndrome with diarrhea (principal); K31.84 Gastroparesis; M54.2 Cervicalgia; M54.50 Low back pain, unspecified
CPT/HCPCS: 36415; 82384; 82533; 82607; 82652; 82672; 82941; 83001; 83002; 84144; 84402; 84403; 85652; 86140; 86200; 86431

== ENCOUNTER → 2025-05-04 | Outpatient (CLI) | payer OTHER, SELFPAY ==
--- OUTSIDE RECORDS SUMMARY | 2025-05-04 06:50 | XMS RPT_ITS | CCD ---
Author Organization [facility] Care Team Providers Care Draw Frame Tender Name Role Phone HARIKA ASKEW, DR FLORES Primary Care Physician Mark Shabazz Primary Care Provider [phone] ADEBAYO HATHAWAY Admitting Unavailable ADEBAYO HATHAWAY Attending [...] MD, DR FLORES Primary Care Bere KOWALSKI TANK CAR RECONDITIONERJOVANNI Attending ELIAN Hua MD Attending Miladys SHABAZZ MD, DR FLORES Primary Care Bere MURGUIA MD, TRUDI Attending Miladys SHABAZZ MD, DR FLORES Primary Care Mark Jean-Baptiste Primary Care Provider Harika ASKEW, Dr. Flores Primary Care Provider Dixon TANK CAR RECONDITIONER-C, Jayla Attending Provider [phone] Destiny TANK CAR RECONDITIONER-C, Jayla Referring Provider Harika ASKEW, Dr. Flores Referring Provider Everton LOZANO, Dr. Tolliver Attending Provider Diego TANK CAR RECONDITIONER-C, Mariana Attending Provider Diego TANK CAR RECONDITIONER-C, Mariana Referring Provider Barkman TANK CAR RECONDITIONER-C, Maryjane Attending Provider Barkjohn TANK CAR RECONDITIONER-C, Maryjane Referring Provider Chris ASKEW, Dr. Tidwell Attending Provider Chris ASKEW, Dr. Tidwell Referring Provider Harika ASKEW, Dr. Flores Primary Care Provider Everton LOZANO, Dr. Tolliver Referring Provider Dossi DC, Dr. Bradley Attending Provider Dossi DC, Dr. Bradley Referring Provider Harika ASKEW, Dr. Flores Primary Care Provider Harika ASKEW, Dr. Flores Referring Provider [phone] Everton LOZANO, Dr. Tolliver Attending Provider Chris ASKEW, Dr. Tidwell Other Provider Dossi DC, Dr. Bradley Other Provider [phone] Harika ASKEW, Dr. Flores Primary Care Provider Harika ASKEW, Dr. Flores Referring Provider [phone] Harika ASKEW, Dr. Flores Primary Care Provider Harika ASKEW, Dr. Flores Referring Provider Chris ASKEW, Dr. Tidwell Attending Provider [phone] Chris ASKEW, Dr. Tidwell Referring Provider [phone] MARIANA ACUÑA Attending Unavailable MARK SHABAZZ Primary Care Unavailable DOMENICO, MARIANA Attending Unavailable [...] Primary Care Unavailable DOMENICO, MARIANA Referring Unavailable Harika ASKEW, Dr. Flores Primary Care Provider Harika ASKEW, Dr. Flores Referring Provider Chris ASKEW, Dr. Tidwell Attending Provider [phone] Jayla Dixon Attending Unavailable Dixon, Jayla Referring Unavailable Ranney, Christopher Primary Care Unavailable Dixon, Jayla Attending Unavailable Dixon, Jayla Referring Unavailable Ranney, Christopher Primary Care Unavailable Dossi, Mirna Attending Unavailable Ranney, Christopher Referring Unavailable Ranney, Christopher Primary Care Unavailable Dixon, Jayla Referring Unavailable Dixon, Jayla Attending Unavailable Ranney, Christopher Primary Care Unavailable Dixon, Jayla Referring Unavailable Dixon, Jayla Attending Unavailable Ranney, Christopher Primary Care Unavailable Friend, Unruly Referring Unavailable Friend, Unruly Attending Unavailable Dossi, Mirna Consulting Unavailable Ranney, Christopher Primary Care Unavailable Friend, Unruly Attending Unavailable Ranney, Christopher Primary Care Unavailable Ranney, Christopher Referring Unavailable Robotham, Diann Attending Unavailable Robotham, Diann Referring Unavailable Ranney, Christopher Primary Care Unavailable Friend, Unruly Attending Unavailable Ranney, Christopher Primary Care Unavailable Ranney, Christopher Referring Unavailable Diego TANK CAR RECONDITIONER, Mariana Attending Unavailable Ranney, Christopher Primary Care Unavailable Ranney, Christopher Referring Unavailable Robotham, Diann Attending Unavailable Ranney, Christopher Primary Care Unavailable Ranney, Christopher Referring Unavailable Assessment, Health Risk Attending Unavaila ble Ranney, Christopher Primary Care Unavailable Dossi, Mirna Referring Unavailable Dossi, Mirna Attending Unavailable Ranney, Christopher Primary Care Unavailable Ranney, Christopher Primary Care Unavailable Friend, Unruly Referring Unavailable Friend, Unruly Attending Unavailable Friend, Unruly Referring Unavailable Friend, Unruly Attending Unavailable [facility] Unavailable Robotham, Diann Attending Unavailable Robotham, Diann Referring Unavailable [facility], [facility] Unavailable Assessment, Health Risk Attending Unavaila ble [facility], [place] Primary Care Unavailable [facility]ol, [facility] Unavailable Dossi, Mirna Attending Unavailable Ranbristol, Christopher Referring Unavailable Friend, Unruly Attending Unavailable Ranbristol, [place] Primary Care Unavailable Ranbristol, Christopher Referring Unavailable Dossi, Mirna Attending Unavailable Ranbristol, Christopher Referring Unavailable [facility], [facility] Unavailable Dossi, Mirna Referring Unavailable Dossi, Mirna Attending Unavailable [facility], [place] Primary Care Unavailable Jayla Dixon Attending Unavailable Ranbr[place]ol, [place] Primary Care Unavailable Ranbristol, Christopher Referring Unavailable Maryjane Alvarado Referring Unavailable BarkMaryjane lopez Attending Unavailable [facility], [facility] Unavailable Robotham, Diann Attending Unavailable [facility], [facility] Unavailable Ranbristol, Christopher Referring Unavailable Ranbristol, [place] Primary Care Unavailable Dossi, Mirna Attending Unavailable Ranbristol, Christopher Referring Unavailable Ranbristol, [place] Primary Care Unavailable Dossi, Mirna Attending Unavailable [facility] Referring Unavailable Ranbristol, [place] Primary Care Unavailable Robotham, Diann Attending Unavailable Robotham, Diann Consulting Unavailable Robotham, Diann Referring Unavailable Friend, Unruly Attending Unavailable Friend, Unruly Consulting Unavailable [facility], [facility] Unavailable Ranney, Christopher Referring Unavailable Dossi, Mirna Referring Unavailable Dossi, Mirna Attending Unavailable Ranbristol, [place] Primary Care Unavailable Dossi, Mirna Attending Unavailable [facility], [facility] Unavailable Ranbristol, Christopher Referring Unavailable Dossi, Mirna Attending Unavailable [facility], [facility] Unavailable Ranney, Christopher Referring Unavailable Dossi, Mirna Attending Unavailable Ranbr[facility], [facility] Unavailable Ranney, Christopher Referring Unavailable Dossi, Mirna Attending Unavailable [facility], [facility] Unavailable Ranney, Christopher Referring Unavailable Dossi, Mirna Attending Unavailable [facility], [facility] Unavailable Ranney, Christopher Referring Unavailable Diego TANK CAR RECONDITIONER, Mariana Referring Unavailable Diego TANK CAR RECONDITIONER, Mariana Attending Unavailable Mark Shabazz Primary Care Unavailable Allergies Allergy Classification Reported Allergen(s) Allergy Type Date of Onset Reaction(s) Facility (20 sources) HYDROcodone; Translations: [hydrocodone bitartrate] Drug Allergy 06-27-[address] [facility] (20 sources) traMADol; Translations: [tramadol] Drug Allergy 06-27-20 Hallucinations [facility] (20 sources) suture; Translations: [suture] Allergy to substance 06-27-[address] [facility] Comment on above: dissolving suture (10 sources) Acetaminophen / HYDROcodone; Translations: [acetaminophen-h ydrocodone] Drug Allergy [facility] (20 sources) Acetaminophen / HYDROcodone Drug Allergy 07-01-20 Nausea And Vomiting [facility] (20 sources) Amoxicillin-Pot Clavulanate Drug Intolerance 07-29-20 [facility] (7 sources) Amoxicillin; Translations: [amoxicillin] Drug Allergy rash [facility] (2 sources) Shellfish; Translations: [shellfish] Food allergy Itching [facility] (16 sources) Shellfish-Derive d Products Propensity to adverse reactions 05-12-20 [facility] (20 sources) Shellfish; Translations: [shellfish derived] Propensity to adverse reactions 06-13-[address] [facility] (1 source) traMADol Drug Allergy 04-30-20 [facility] Repository Medications Current Medications Medication Drug Class(es) Dates Sig (Normalized) Sig (Original) acetaminophen 325 mg / butalbital 50 mg / caffeine 40 mg oral tablet (20 sources) Barbiturate, Central Nervous System Stimulant, Methylxanthine Start: 06-12-2024 Butalbital-Aceta minophen-Caff 1 TABLET tablet Active 1 {tbl} PO AT BEDTIME June 12, 2024 12:00am Headache Start: 02-04-2024 End: 05-12-2024 take 1 tablet by mouth every six hours as needed for headache and headache, then take 1 tablet by mouth every six hours as needed for headache and headache qoqmhdmpty-wdzsbjnqsboxl-mkzytbyp 50-325 -40 MG tablet Indications: Chronic migraine [...] by mouth every six hours for headache fzbchslbkw-rrhdeedoiaqho-dtrnbhyu 50-325 -40 MG tablet Indications: Chronic migraine without aura, intractable, without status migrainosus TAKE 1 TABLET BY MOUTH EVERY 6 HOURS IF NEEDED FOR HEADACHE. 90 day supply 130 tablet 1 01/04/2024 Active Start: 04-27-2018 take 1 tablet by luz elena th every four hours as needed Ogscgtbvhn-Czqugjbrxxpdk-Efav Active 1 T ABLET PO EVERY 4 HOURS NEEDED April 27, 2018 7:31pm Start: 04-27-2018 End: 01-23-2025 Wvxyctfcav-Xgzzpoonzjsvh-Aqp f 1 TABLET tablet Discontinued 1 {tbl} PO EVERY 4 HOURS NEEDED as needed for Headache 20 0 April 27, 2018 12:00am June 12, 2024 1:57pm Start: 02-11-2018 End: 03-06-2019 Lkycsldxut-Yuqozhbkdsxlq-Kfk f Discontinued 1 TABLET PO NEEDED April 22, 2018 12:57pm March 06, 2019 8:43am Start: 02-11-2018 End: 03-06-2019 Fqxdbwvwzm-Xwwreriewgmyz-Odb f 50-325-40 mg tablet Discontinued 1 {tbl} [...] 0 Refill(s) Start Date: 08/02/23 Status: Ordered 2 ml ketorolac tromethamine 30 mg/ml cartridge [...] qDay, # 30 tab(s), 5 Refill(s), Pharmacy: [facility], 162, cm, 07/09/22 8:28:00 EST, Height, kg, 07/09/22 8:28:00 EST, Dosing Weight Start Date: 02/01/23 Stop Date: 07/31/23 Status: Ordered Start: 07-09-2022 take 1 tablet by luz elena th once daily Levothyroxine 50 mcg tablet Active 50 ug PO daily May 16, 2024 12:00am Start: 07-09-2022 End: 01-05-2023 levothyroxine 50 mcg (0.05 m g) oral tablet Dose : 50 mcg = 1 tab(s), Oral, qDay, # 30 tab(s), 5 Refill(s), [facility]acy: [id number], 162, cm, 07/09/22 8:28:00 EST, Height, kg, [...] 0 Refill(s), 63.5 0 07/09/2022 Active Magnesium (16 sources) Start: 01-10-2025 Magnesium 100 mg tablet Active 1140 mg PO DAILY January 10, 2025 12:00am Multi Vitamin+ oral liquid (8 sources) Start: 05-22-2021 Multi Vitamin+ oral liquid 0 Refill(s) Start Date: 05/22/21 Status: Ordered multivitamin capsule (1 source) Start: 04-22-2018 take 1 capsule by mouth once daily multivitamin capsule Active 1 CAP PO DAILY April 22, 2018 12:58pm Multivitamin capsule (20 sources) Start: 04-22-2018 Multivitamin capsule Active 1 [...] 0 Refill(s), 10/20/23 1:14:00 PM EST, Pharmacy: [facility] #[id number], Post-op pain, 162.6, cm, 10/13/23 9:28:00 EST, [...] tab(s), 12 Refill(s), 08/03/23 8:54:00 EST, Pharmacy: [facility] #[id number], 162, cm, 07/09/22 8:28:00 EST, Height, 54.5, [...] / oxyCODONE hydrochloride 5 mg oral tablet (20 sources) Opioid Agonist Start: 02-15-2018 End: 04-22-2018 take 1 tablet by mouth every six hours as needed Oxycodone-Acetamino phen Discontinued 1 TABLET PO EVERY 6 HOURS NEEDED 12 5 February 15, 2018 4:30pm April 22, 2018 [...] 0.5 MG tablet 04/09/2014 Active bacillus coagulans [id number] unt / inulin 250 mg oral capsule (20 sources) End: 09-19-2024 Bacillus Coagulans-Inulin (Probiotic) 1-250 BILLION-MG capsule Take by mouth. 09/19/2024 Discontinued (Med list cleanup) onabotulinumtoxina 200 unt injection (20 sources) Acetylcholine Release Inhibitor Start: 03-06-2025 End: 03-06-2025 onabotulinumtoxinA (Botox) injection 200 Units Start: 03-06-2025 End: 03-06-2025 inject 200 [IU] by intramuscular injection once 200 Units, IntraMUSCular, Once, On Wed03/06/25 at 1015, For 1 dose Start: 12-12-2024 End: 12-12-2024 onabotulinumtoxinA (Botox) i njection 200 Units Start: 12-12-2024 End: 12-12-2024 inject [...] injection once 200 Units, IntraMUSCular, Once, On Wed06/05/24 at 1430, For 1 dose Start: 05-25-2024 [...] Active cyclobenzaprine hydrochloride 10 mg oral tablet (20 sources) Muscle Relaxant Start: 02-11-2018 End: 04-22-2018 take 1 tablet by mouth three times daily as needed for muscle spasms Cyclobenzaprine 10 MG tablet Discontinued 10 mg PO THREE TIMES A DAY as needed for Muscle Spasm 20 0 February 11, 2018 12:00am April 22, 2018 12:57pm diazePAM 5 mg oral tablet (20 sources) Benzodiazepine Start: 02-15-2018 End: 04-22-2018 take [...] 03, 2014 1:00am July 30, 2015 1:53pm estradiol 2 mg oral tablet (20 sources) Estrogen Start: 03-27-2019 End: 03-26-2025 take 1 tablet by mouth once daily Estradiol 2 mg tablet Discontinued 2 mg PO daily May 16, 2024 12:00am March 26, 2025 6:59am 1.5 ml fremanezumab-vfrm 150 mg/ml auto-injector (20 [...] 1 ml galcanezumab-gnlm 120 mg/ml prefilled syringe (20 sources) Start: 06-06-2020 End: 06-12-2024 Galcanezumab-Gnlm (Emgality [...] (20 sources) Antiarrhythmic, Amide Local Anesthetic Start: 04-16-2025 End: 04-16-2025 lidocaine (Xylocaine) 1 % injection 9 mL Start: 04-16-2025 End: 04-16-2025 9 mL, Injection, Once, On 04/16/25 at 1100, For 1 dose Start: 03-06-2025 End: 03-06-2025 lidocaine (Xylocaine) 1 % in jection 9 mL Start: 03-06-2025 End: 03-06-2025 9 mL, Injection, Once, On e 03/06/25 at 1015, For 1 dose Start: 12-12-2024 End: 12-12-2024 9 mL, IntraDERmal, Once, On Wed12/12/24 at 1015, For 1 dose Start: 10-31-2024 End: 10-31-2024 9 mL, IntraDERmal, Once, On Wed10/31/24 at 0945, For 1 dose Start: 09-25-2024 End: 12-12-2024 lidocaine (Xylocaine) 1 % in jection 9 mL Start: 06-29-2024 End: 06-29-2024 9 mL, IntraDERmal, Once, On Tracy 06/29/24 at 1445, For 1 dose Start: 06-29-2024 End: 06-29-2024 lidocaine (Xylocaine) 1 % in jection 9 mL Start: 02-16-2024 End: 02-16-2024 lidocaine (Xylocaine) 1 % in jection 9 mL Start: 02-16-2024 End: 02-16-2024 9 mL, Injection, Once, On We d 02/16/24 at 0915, For 1 dose Start: [...] (Med list cleanup) omega-3 acid ethyl esters (jail) 1000 mg oral capsule (16 sources) End: [...] 07/09/2024 saccharomyces boulardii 250 mg oral capsule (20 sources) Start: 05-16-2024 End: 06-12-2024 take 1 capsule by mouth twice daily Saccharomyces Boulardii (Daily Probiotic (S. Boulardii)) 250 mg capsule Discontinued 250 mg PO TWICE A DAY May 16, 2024 12:00am June 12, 2024 1:56pm triamcinolone acetonide 10 mg/ml injectable suspension (20 sources) Corticosteroid Start: 04-16-2025 End: 04-16-2025 triamcinolone acetonide (Kenalog) injection 10 mg Start: 04-16-2025 End: 04-16-2025 inject 10 mg by intramuscular injection once 10 mg, IntraMUSCular, Once, On Wed04/16/25 at 1100, For 1 dose Start: 03-06-2025 End: 03-06-2025 inject 10 mg by intramuscular injection once 10 mg, IntraMUSCular, Once, On Wed03/06/25 at 1015, For 1 dose Start: 12-12-2024 End: 12-12-2024 inject 10 mg by intramuscular injection once 10 mg, IntraMUSCular, Once, On Wed12/12/24 at 1015, For 1 dose Start: 10-31-2024 End: 10-31-2024 inject 10 mg by intramuscular injection once 10 mg, IntraMUSCular, Once, On Wed10/31/24 at 0945, For 1 dose Start: 09-25-2024 End: 03-06-2025 triamcinolone acetonide (Leonid alog) injection 10 mg Start: 06-29-2024 End: 06-29-2024 triamcinolone acetonide (Leonid alog) injection 10 mg Start: 06-29-2024 End: 06-29-2024 inject 10 mg by intramuscular injection once 10 mg, IntraMUSCular, Once, On Tracy 06/29/24 at 1445, For 1 dose Start: 02-16-2024 [...] Classification Problem Date Documented Da te Episodic/Chronic Biliary tract disease (1 source) Calculus of gallbladder without cholecystitis without obstruction; Translations: [Calculus of gallbladder without cholecystitis without obstruction] Onset: 02-11-2025 Episodic Headache; including migraine (20 sources) Migraine; Translations: [Migraine, unspecified, not intractable, without status migrainosus] Onset: 03-27-2022 06-06-2022 Chronic Menopausal disorders (20 sources) Menopausal syndrome; Translations: [Premature menopause] 07-09-2022 Chronic Nonspecific chest pain (20 sources) Chest pain; Translations: [Chest pain, unspecified] [...] and somatic dysfunction of cervical region] Onset: 04-30-2025 Episodic Other bone disease and musculoskeletal deformities (1 source) Segmental and somatic dysfunction of lumbar region; Translations: [Segmental and somatic dysfunction of lumbar region] Onset: 04-30-2025 Episodic Other bone disease and musculoskeletal deformities (1 source) Segmental and somatic dysfunction of thoracic region; Translations: [Segmental and somatic dysfunction of thoracic region] Onset: 04-30-2025 Episodic Other bone disease and musculoskeletal deformities (1 source) Segmental and somatic dysfunction of pelvic region; Translations: [Segmental and somatic dysfunction of pelvic region] Onset: 04-30-2025 Episodic Other connective tissue disease (20 sources) Myofascial pain; Translations: [Myalgia, other site] Onset: 01-04-2024 01-04-2024 Episodic Other disorders of stomach and duodenum (20 sources) Gastroparesis syndrome; Translations: [Gastroparesis] 05-16-2024 Episodic Other disorders of stomach and duodenum (2 sources) Gastroparesis; Translations: [Gastroparesis] Onset: 07-04-2024 Episodic Other female genital disorders (20 sources) Lesion of endometrium; Translations: [Other specified conditions associated with female genital organs and menstrual cycle] 08-01-2015 Episodic Other female genital disorders (20 sources) Dysplasia of cervix; Translations: [Dysplasia of cervix uteri, unspecified] 08-03-2014 Episodic Other gastrointestinal disorders (20 sources) Irritable bowel syndrome with diarrhea; Translations: [...] loss 08-02-2023 Episodic Other upper respiratory disease (20 sources) Allergy to pollen; Translations: [Allergic rhinitis due to pollen] 06-06-2020 Chronic Other upper respiratory infections (20 sources) Acute pharyngitis; Translations: [Acute pharyngitis, unspecified] 04-22-2018 Episodic Peritonitis and intestinal abscess (20 sources) Peritonitis; Translations: [Peritonitis, unspecified] 06-06-2020 Episodic Residual codes; unclassified (20 sources) History of colonoscopy; Translations: [Other specified [...] cancer] 11-22-2024 Episodic Comment on above: 28.2% Lo chan breast cancer risk Spondylosis; intervertebral disc disorders; other back problems (20 sources) Backache; Translations: [Dorsalgia, unspecified] Onset: 03-15-2025 06-12-2024 Episodic Comment on above: CHRONIC Thyroid disorders (20 sources) Hypothyroidism; Translations: [Hypothyroidism, unspecified] 07-09-2022 Chronic Thyroid disorders (20 sources) Disorder of thyroid gland; Translations: [Disorder of thyroid, unspecified] 06-12-2024 Episodic Comment on above: ON MED Unclassified (10 sources) Patient encounter status 07-09-2022 Unclassified (1 source) Low back pain, unspecified; Translations: [Low back pain, unspecified] Onset: 03-15-2025 Past or Other Problems Problem Classification Problem Date Documented Da te Episodic/Chronic Abdominal pain (20 sources) Right lower quadrant pain; Translations: [Right lower quadrant pain] Onset: 08-17-2023 08-02-2023 Episodic Gastrointestinal hemorrhage (2 sources) Hemorrhage of anus and rectum; Translations: [Hemorrhage of anus and rectum] Onset: 08-17-2023 Episodic Malaise and fatigue (20 sources) Fatigue; Translations: [Other fatigue] Onset: 11-10-2024 06-06-2020 Episodic Noninfectious gastroenteritis (20 sources) Inflammatory bowel disease; Translations: [Noninfective gastroenteritis and colitis, unspecified] Onset: 07-04-2024 05-16-2024 Episodic Nonmalignant breast conditions (20 sources) Breast lump; Translations: [Unspecified lump in the left breast, unspecified quadrant] Onset: 11-01-2024 11-01-2024 Episodic Comment on above: imaging Other connective tissue disease (2 sources) Myalgia, other site; Translations: [Myalgia, other site] Onset: 01-04-2024 Episodic Other screening for suspected conditions (not mental disorders or infectious disease) (2 sources) Abnormal findings on diagnostic imaging of other abdominal regions, including retroperitoneum; Translations: [Abnormal findings on diagnostic imaging of other abdominal regions, including retroperitoneum] Onset: 08-17-2023 Episodic Residual codes; unclassified (1 source) Family history of malignant neoplasm of breast; Translations: [Family history of malignant neoplasm of breast] Onset: 11-22-2024 Episodic Results Test Name Value Interpretation Reference Range Facility Chiropractic Reporton 2024 Chiropractic Report [facility] [place] [address] OFFICE VISIT Date of Service: 04/30/25 MR#: [id number] Acct: [id number] Name: MICHELLE CARLIN Rep #: [id number] : 1980 Provider: YOHANA Saucedo Age/Sex: 44/F Location: [facility] Status: Signed Intake Vital Signs 01/19/25 10:57 04/24/25 10:32 Height 5 ft 4 in 5 ft 4 in Intake Visit Reasons: ACUPUNCTURE/ADJUSTMENT Chief Complaint: neck and low back pain Is patient in pain?: Yes (neck ) Pain scale (1-10): 2 Allergies suture Allergy (Mild, Verified 04/30/25 11:00) pus tramadol (From Ultram) Adverse Reaction (Intermediate, Verified 04/30/25 11:00) hallucinations shellfish derived Adverse Reaction (Mild, Verified 04/30/25 11:00) Hives hydrocodone bitartrate (From Vicodin) Adverse Reaction (Verified 04/30/25 11:00) Vomiting Medications ???Medication ???Instructions ???Recorded ???Confirmed ???Type multivitamin 1 cap PO DAILY 04/22/18 04/30/25 H istory cholecalciferol (vitamin D3) 50 50 mcg PO QDAY 05/16/24 04/30/25 H istory mcg (2,000 unit) capsule levothyroxine 50 mcg tablet 50 mcg PO QDAY 05/16/24 04/30/25 H istory lisdexamfetamine 30 mg capsule 30 mg PO QAM 05/16/24 04/30/25 His tory (Vyvanse) tizanidine 4 mg capsule 4 mg PO QHS 05/16/24 04/30/25 Hist ory avtrwhmuvj-edjabtmesziif-gos feine 1 tab PO QHS Headache 06/12/24 History 50 mg-325 mg-40 mg tablet diphenhydramine HCl 25 mg capsule 25 mg PO QHS 12/25/24 04/30/25 Hi story (Benadryl) magnesium 100 mg tablet 1,140 mg PO DAILY 01/10/25 5 History oxycodone 5 mg capsule 5 mg PO Q6H PRN pain 3 days #5 cap s 01/19/25 04/30/25 Rx estradiol 2 mg tablet 2 mg PO QDAY #30 tabs 03/26/2504/16 Rx PFSH Medical History Depression Anxiety Injury [...] spouse current occupational status: employed current occupation: [employer] [place] Smoking Status: Never smoker alcohol intake: never substance use type: does not use seatbelt use: always do you feel safe at home: Yes additional social history: - Rashard CABRERA ACUPUNCTURE/ADJUSTMENT Chief Complaint: upper and low back pain Visit Number: 12 Details: Michelle is a 44 y/o female here to follow up with upper and low back pain. Michelle presents with c/o mild neck and upper back pain stiffness. She states her CANTU's have been really bad lately. She in unsure if it is d/t the weather changes or stress. She rates her neck pain 2/10 today. 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 She states her low back seemed like it was going to flare up again last evening but states it feels okay today. She states she went to baseball games [place] [employer] [place] games and was standing cooking and setting up for her sons birthday constitution party which contributed to her back pain over the weekend. She states she is tight equal across her low back/SI area. She denies new injury, numbness, tingling or radiculopathy to her BLE or IVETT. She also gets regular massages and uses a TENS unit at home to treat her pain. She reports chiropractic adjustments and acupuncture are helpful in relieving her pain and discomfort but it gradually returns. Location: neck/low back Duration: frequent Aggravating or associated factors: bending, lifting, botox, stress Relieving factors: chiro/acu Pain Quality: aching, dull and sharp Exam Musc General: Yes normal posture and joint tenderness; No muscle weakness or decreased range of motion Cervical Spine: Yes loss of normal cervical lordosis, Yes cervical muscular tenderness, Yes cervical spasm right greater than left diffuse trapezius and paracervical muscles and Yes misalignment misalignment: C1, C2, C6 and C7 (more content not included)... Normal [facility] Chiropractic Reporton 2024 Chiropractic Report [facility]rop[facility] [address] [place] [address] OFFICE VISIT Date of Service: 04/24/25 MR#: [id number] Acct: [id number] Name: MIHCELLE CARLIN ANN Rep #: [id number] : 1980 Provider: YOHANA Saucedo Age/Sex: 44/F Location[place] [facility] Status: Signed Intake Vital Signs 01/19/25 10:57 Height 5 ft 4 in Intake Visit Reasons: ACUPUNCTURE/ADJUSTMENT Chief Complaint: neck and low back pain Is patient in pain?: Yes (low back) Pain scale (1-10): 2 Allergies suture Allergy (Mild, Verified 04/24/25 09:49) pus tramadol (From Ultram) Adverse Reaction (Intermediate, Verified 04/24/25 09:49) hallucinations shellfish derived Adverse Reaction (Mild, Verified 04/24/25 09:49) Hives hydrocodone bitartrate (From Vicodin) Adverse Reaction (Verified 04/24/25 09:49) Vomiting Medications ???Medication ???Instructions ???Recorded ???Confirmed ???Type multivitamin 1 cap PO DAILY 04/22/18 04/24/25 H istory cholecalciferol (vitamin D3) 50 50 mcg PO QDAY 05/16/24 04/24/25 H istory mcg (2,000 unit) capsule levothyroxine 50 mcg tablet 50 mcg PO QDAY 05/16/24 04/24/25 H istory lisdexamfetamine 30 mg capsule 30 mg PO QAM 05/16/24 04/24/25 His tory (Vyvanse) tizanidine 4 mg capsule 4 mg PO QHS 05/16/24 04/24/25 Hist ory hamhhocgfx-yyeoehyicxbmo-dcp feine 1 tab PO QHS Headache 06/12/24 History 50 mg-325 mg-40 mg tablet diphenhydramine HCl 25 mg capsule 25 mg PO QHS 12/25/24 04/24/25 Hi story (Benadryl) magnesium 100 mg tablet 1,140 mg PO DAILY 01/10/25 5 History oxycodone 5 mg capsule 5 mg PO Q6H PRN pain 3 days #5 cap s 01/19/25 04/24/25 Rx estradiol 2 mg tablet 2 mg PO QDAY #30 tabs 03/26/2510/17 Rx PFSH Medical History Depression Anxiety Injury [...] home: Yes additional social history: - Rashard CABRERA ACUPUNCTURE/ADJUSTMENT Chief Complaint: upper and low back pain Visit Number: 11 Details: Michelle is a 44 y/o female here to follow up with upper and low back pain. Michelle presents with frontal CANTU today. Pt. advises her neck and upper back are stiff and achy. She has been experiencing some CANTU's but not migraines recently. 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 She c/o intermittent sharp pains and feels like it's 'catching'. She states it is equal across her low back/SI area. She rested yesterday and feels a little better but rates her low back pain 2/10 today. She denies new injury, numbness, tingling or radiculopathy to her BLE or IVETT. She also gets regular massages and uses a TENS unit at home to treat her pain. She reports chiropractic adjustments and acupuncture are helpful in relieving her pain and discomfort but it gradually returns. Location: neck/low back Duration: frequent Aggravating or associated factors: bending, lifting, botox, stress Relieving factors: chiro/acu Pain Quality: aching, dull and sharp Exam [...] and C7 Thoracic/Lumber: No thoracic and lumbar spi (more content not included)... Normal [facility] Chiropractic Reporton 2024 Chiropractic Report [facility]rop[facility] [address] [place] [id number] OFFICE VISIT Date of Service: 04/16/25 MR#: [id number] Acct: [id number] Name: MICHELLE CARLIN ANN Rep #: [id number] : 1980 Provider: YOHANA Saucedo Age/Sex: 44/F Location[place] [facility] Status: Signed Intake Vital Signs 01/19/25 10:57 Height 5 ft 4 in Intake Visit Reasons: ACUPUNCTURE/ADJUSTMENT Chief Complaint: neck and low back pain Is patient in pain?: Yes Allergies suture Allergy (Mild, Verified 04/16/25 13:22) pus tramadol (From Ultram) Adverse Reaction (Intermediate, Verified 04/16/25 13:22) hallucinations shellfish derived Adverse Reaction (Mild, Verified 04/16/25 13:22) Hives hydrocodone bitartrate (From Vicodin) Adverse Reaction (Verified 04/16/25 13:22) Vomiting Medications ???Medication ???Instructions ???Recorded ???Confirmed ???Type multivitamin 1 cap PO DAILY 04/22/18 04/16/25 H istory cholecalciferol (vitamin D3) 50 50 mcg PO QDAY 05/16/24 04/16/25 H istory mcg (2,000 unit) capsule levothyroxine 50 mcg tablet 50 mcg PO QDAY 05/16/24 04/16/25 H istory lisdexamfetamine 30 mg capsule 30 mg PO QAM 05/16/24 04/16/25 His tory (Vyvanse) tizanidine 4 mg capsule 4 mg PO QHS 05/16/24 04/16/25 Hist ory gerhzdkvwi-kpdgqxlvtarto-tju feine 1 tab PO QHS Headache 06/12/24 History 50 mg-325 mg-40 mg tablet diphenhydramine HCl 25 mg capsule 25 mg PO QHS 12/25/24 04/16/25 Hi story (Benadryl) magnesium 100 mg tablet 1,140 mg PO DAILY 01/10/25 5 History oxycodone 5 mg capsule 5 mg PO Q6H PRN pain 3 days #5 cap s 01/19/25 04/16/25 Rx estradiol 2 mg tablet 2 mg PO QDAY #30 tabs 03/26/25 Rx PFSH Medical History Depression Anxiety Injury [...] home: Yes additional social history: - Rashard [facility] ACUPUNCTURE/ADJUSTMENT Chief Complaint: upper and low back pain Visit Number: 10 Details: Michelle is a 44 y/o female here to follow up with upper and low back pain. Pt. advises her CANTU's have increased d/t the weather changes recently. She reports having her trigger point injections this morning from neuro. 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 neck and upper back continue to be tight equal across and into her traps bilaterally. She states her low back has started to flare up the past few days she has had intermittent sharp pains and feels like it's 'catching'. She states it is equal across her low back/SI area. She denies new injury, numbness, tingling or radiculopathy to her BLE or IVETT. She also gets regular massages and uses a TENS unit at home to treat her pain. She reports chiropractic adjustments and acupuncture are helpful in relieving her pain and discomfort but it gradually returns. Location: neck/low back Duration: frequent Aggravating or associated factors: bending, lifting, botox, stress Relieving factors: chiro/acu Pain Quality: aching, dull and sharp Exam [...] (upper thoracic/ lower lumbar), Yes thoraco-lumbar spasm (more content not included)... Normal [facility] Progress Noteon 04-16-2025 Progress Note [facility] Primary Care Physician: Mark Shabazz Chief Complaint: Chief Complaint Patient presents with Procedure TPI - intractable chronic migraine Main Diagnosis: Diagnosis Plan 1. Intractable [...] is seen in the [facility]UROLOGY [facility] of [facility] for migraines. Patient states she has suffered [...] on current medication regimen. The patient reports she is experiencing an increase in neck and shoulder myofascial pain which she feels is resolved with TPI. The patient would like to receive TPI today for treatment. TPI provided as documented below. The patient continues fioricet and ketorolac for treatment of migraine [...] loss Past Surgical History: Procedure Laterality Date BREAST BIOPSY 01/19/2025 COLPOSCOPY 2014 HYSTEROSCOPY 2015 plus D&C OOPHORECTOMY Left 2009 OVARIAN CYST SURGERY Right 2012 Allergies Allergen Reactions Amoxicillin-Pot Clavulanate Other reaction(s): Hives and/or rash Hydrocodone-Acetaminophen Nausea And Vomiting Other reaction(s): Severe nausea & vomiting, Vomiting Shellfish-Derived Products Tramadol Hallucinations Current Outpatient Medications Medication Sig Dispense Refill ALPRAZolam (Xanax) 0.5 MG tablet rcumokoude-onbanrfxpelup-vrz feine 50-325-40 MG tablet Take 1 tablet by mouth every 4 hours as needed for headaches or migraine. 130 tablet 2 cholecalciferol (Vitamin D-3) 50 MCG (2000 UT) [...] IntraDERmal Once Mariana Acuña APRN - SUDHAKAR cai (more content not included)... Normal [facility] Chiropractic Reporton 2024 Chiropractic Report [facility]rop[facility] [address] [place], [place] [id number] OFFICE VISIT Date of Service: 04/03/25 MR#: [id number] Acct: [id number] Name: RAEGANMICHELLE DUBONGIANFRANCO Rep #: [id number] : 1980 Provider: YOHANA Saucedo Age/Sex: 44/F Location[place] [facility] Status: Signed Intake Vital Signs 01/19/25 10:57 Height 5 ft 4 in Intake Visit Reasons: ACUPUNCTURE/ADJUSTMENT Chief Complaint: neck and low back pain Allergies suture Allergy (Mild, Verified 03/29/25 10:25) pus tramadol (From Ultram) Adverse Reaction (Intermediate, Verified 03/29/25 10:25) hallucinations shellfish derived Adverse Reaction (Mild, Verified 03/29/25 10:25) Hives hydrocodone bitartrate (From Vicodin) Adverse Reaction (Verified 03/29/25 10:25) Vomiting PFSH Medical History Depression Anxiety Injury of [...] Yes additional social history: - Rashard HPI ACUPUNCTURE/ADJUSTMENT Chief Complaint: upper and low back pain Visit Number: 9 Details: Michelle is a 44 y/o female here to follow up with upper and low back pain. Pt. advises her last session was helpful and her CANTU's have been less intense. 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 neck and upper back continue to be tight equal across and into her traps bilaterally. She states she woke up with a throbbing CANTU today and rates her upper back/ neck pain 2/10. She states her low back continues to feel good. She denies new injury, numbness, tingling or radiculopathy to her BLE or IVETT. She also gets regular massages and uses a TENS unit at home to treat her pain. She reports chiropractic adjustments and acupuncture are helpful in relieving her pain and discomfort but it gradually returns. Location: neck/low back Duration: frequent Aggravating or associated factors: bending, lifting, botox, stress Relieving factors: chiro Pain Quality: aching, dull and sharp Exam Musc General: Yes normal posture and joint tenderness; No muscle weakness or decreased range of motion Cervical Spine: Yes loss of normal cervical lordosis, Yes cervical muscular tenderness, Yes cervical spasm right greater than left diffuse trapezius and paracervical muscles and Yes misalignment misalignment: C1, C2, C6 and C7 Thoracic/Lumber: No thoracic and lumbar spine normal to inspection (RIL: -IN), Yes paraspinal tenderness on the right greater than left (upper thoracic/ lower lumbar), Yes thoraco-lumbar spasm on the right greater than left (trap, levator, glute medius) and on the left greater than right (lumbar paraspinal, QL) and Yes misalignment T1, T2, T3, T7, T8, L3, L4, L5 and RIL Sacroiliac joints: on the right tender to palpation Office Procedures Procedures - Chiropractic Procedures Manipulation: Cervical C2 and C6, Lumbar L4, Thoracic T2 and Pelvis RIL Manipulation: 3-4 regions Traction, Mechanical: Yes Patient Response: positive Details: ???Acupuncture Patient instructions/Risk: Patient instructed not to move and informed of risks of moving. Risks associated with the procedure and the specific location were reviewed with the patient and consent was obtained. Acupuncture performed: E-stim was not utilized. Acupoints Treated: DU20,BL10/23/25/40,GB20/21,H T7,SP6 Sterile, single use, solid filament needles were inserted at various depths and angles to release tight tissue, improve microcirculation and remove neuro-noxious chemicals via a myofascial twitch response. Harleigh were inserted, needle manipulation was performed. Needle removal was p (more content not included)... Normal [facility] Chiropractic Reporton 2024 Chiropractic Report [facility] [address] [place] [id number] OFFICE VISIT Date of Service: 03/29/25 MR#: [id number] Acct: [id number] Name: MICHELLE CARLIN ANN Rep #: [id number] : 1980 Provider: YOHANA Bradley Do ssi Age/Sex: 44/F Location: [facility] Status: Signed Intake Vital Signs 01/19/25 10:57 Height 5 ft 4 in Intake Visit Reasons: ACUPUNCTURE/ADJUSTMENT Chief Complaint: neck and low back pain Is patient in pain?: Yes (neck and upper back) Pain scale (1-10): 2 Allergies suture Allergy (Mild, Verified 03/29/25 10:25) pus tramadol (From Ultram) Adverse Reaction (Intermediate, Verified 03/29/25 10:25) hallucinations shellfish derived Adverse Reaction (Mild, Verified 03/29/25 10:25) Hives hydrocodone bitartrate (From Vicodin) Adverse Reaction (Verified 03/29/25 10:25) Vomiting Medications ???Medication ???Instructions ???Recorded ???Confirmed ???Type multivitamin 1 cap PO DAILY 04/22/18 03/29/25 H istory cholecalciferol (vitamin D3) 50 50 mcg PO QDAY 05/16/24 03/29/25 H istory mcg (2,000 unit) capsule levothyroxine 50 mcg tablet 50 mcg PO QDAY 05/16/24 03/29/25 H istory lisdexamfetamine 30 mg capsule 30 mg PO QAM 05/16/24 03/29/25 His tory (Vyvanse) tizanidine 4 mg capsule 4 mg PO QHS 05/16/24 03/29/25 Hist ory vtciyhivos-zegjfsizsaztp-qdk feine 1 tab PO QHS Headache 06/12/24 History 50 mg-325 mg-40 mg tablet diphenhydramine HCl 25 mg capsule 25 mg PO QHS 12/25/24 03/29/25 Hi story (Benadryl) magnesium 100 mg tablet 1,140 mg PO DAILY 01/10/25 5 History oxycodone 5 mg capsule 5 mg PO Q6H PRN pain 3 days #5 cap s 01/19/25 03/29/25 Rx estradiol 2 mg tablet 2 mg PO QDAY #30 tabs 03/26/2503/16 Rx PFSH Medical History Depression Anxiety Injury [...] spouse current occupational status: employed current occupation: [employer] [place] Smoking Status: Never smoker alcohol intake: never substance use type: does not use seatbelt use: always do you feel safe at home: Yes additional social history: - Rashard CABRERA ACUPUNCTURE/ADJUSTMENT Chief Complaint: upper and low back pain Visit Number: 8 Details: Michelle is a 44 y/o female here to follow up with back pain. Pt. advises her neck and upper back continue to be tight equal across and into her traps bilaterally. She states she woke up with a throbbing CANTU today and rates her upper back/ neck pain 2/10. She states her low back continues to feel good. She denies new injury, numbness, tingling or radiculopathy to her BLE or IVETT. She also gets regular massages and uses a TENS unit at home to treat her pain. She reports chiropractic adjustments and acupuncture are helpful in relieving her pain and discomfort but it gradually returns. Location: neck/low back Duration: frequent Aggravating or associated factors: bending, lifting, botox, stress Relieving factors: chiro Pain Quality: aching, dull [...] spasm on the right greater than left (trap, levator, glute medius) and on the left greater than right (lumbar paraspinal, QL) and Yes misalignment T1, T2, T3, T7, T8, L3, L4, L5 and RIL Sacroiliac joints: on the right tende (more content not included)... Normal [facility] Chiropractic Reporton 2024 Chiropractic Report [facility] [address] [place] [address] OFFICE VISIT Date of Service: 03/22/25 MR#: [id number] Acct: [id number] Name: RAEGANGIANFRANCO Rep #: [id number] : 1980 Provider: YOHANA Bradley Do ssi Age/Sex: 44/F Location: [facility] Status: Signed Intake Vital Signs 01/19/25 10:57 Height 5 ft 4 in Intake Visit Reasons: ACUPUNCTURE/ADJUSTMENT Chief Complaint: neck and low back pain Allergies suture Allergy (Mild, Verified 03/22/25 11:44) pus tramadol (From Ultram) Adverse Reaction (Intermediate, Verified 03/22/25 11:44) hallucinations shellfish derived Adverse Reaction (Mild, Verified 03/22/25 11:44) Hives hydrocodone bitartrate (From Vicodin) Adverse Reaction (Verified 03/22/25 11:44) Vomiting Medications ???Medication ???Instructions ???Recorded ???Confirmed ???Type multivitamin 1 cap PO DAILY 04/22/18 03/22/25 H istory cholecalciferol (vitamin D3) 50 50 mcg PO QDAY 05/16/24 03/22/25 H istory mcg (2,000 unit) capsule estradiol 2 mg tablet 2 mg PO QDAY 05/16/24 03/22/25 His tory levothyroxine 50 mcg tablet 50 mcg PO QDAY 05/16/24 03/22/25 H istory lisdexamfetamine 30 mg capsule 30 mg PO QAM 05/16/24 03/22/25 His tory (Vyvpaula) tizanidine 4 mg capsule 4 mg PO QHS 05/16/24 03/22/25 Hist ory vyogmvcwzo-wzliihlnbnonw-nyv feine 1 tab PO QHS Headache 06/12/24 History 50 mg-325 mg-40 mg tablet diphenhydramine HCl 25 mg capsule 25 mg PO QHS 12/25/24 03/22/25 Hi story (Benadryl) magnesium 100 mg tablet 1,140 mg PO DAILY 01/10/25 5 History oxycodone 5 mg capsule 5 mg PO Q6H PRN pain 3 days #5 cap s 01/19/25 03/22/25 Rx PFSH Medical History Depression Anxiety Injury [...] spouse current occupational status: employed current occupation: [employer] [place] Smoking Status: Never smoker alcohol intake: never substance use type: does not use seatbelt use: always do you feel safe at home: Yes additional social history: - Rashard HPI ACUPUNCTURE/ADJUSTMENT Chief Complaint: upper and low back pain Visit Number: 7 Details: Michelle is a 44 y/o female here to follow up with back pain. Pt. advises her low back continues to feel pretty good. She states she felt her neck and upper back tighten up yesterday. She states it is equal bilaterally and she has noticed some decrease in ROM. She states her CANTU's have been a little better but still occurring. She denies new injury, numbness, tingling or radiculopathy to her BLE or IVETT. She also gets regular massages and uses a TENS unit at home to treat her pain. She reports chiropractic adjustments and acupuncture are helpful in relieving her pain and discomfort but it gradually returns. Location: neck/low back Duration: frequent Aggravating or associated factors: bending, lifting, botox, stress Relieving factors: chiro Pain Quality: aching, dull and sharp Exam Musc General: Yes normal posture and joint tenderness; No muscle weakness or decreased range of motion Cervical Spine: Yes loss of normal cervical lordosis, Yes cervical muscular tenderness right greater than left diffuse , Yes cervical spasm right greater than left diffuse trapezius and paracervical muscles and Yes misalignment misalignment: C1, C2, C6 and C7 Thoracic/Lumber: No thoracic and lumbar spine normal to inspection (RIL: -IN), Yes paraspinal tenderness on the right greater than left (upper thoracic/ lower lumbar), Yes thoraco-lumbar spasm on the right greater than left (trap, levator, glute medius) and on the left greater than right (lumbar paraspinal, QL) and Yes misalignment T1, T2, T3, T7, T8, L3, L4, L5 and RIL Sacroiliac joints: on the right tender to palpation Office Procedure (more content not included)... Normal [facility] L3410.9992on 03-16-2025 [facility] Misc. COMMENT Normal . [facility] Comment on above: Order Comment: [id number] 5ehlers danlos testing Result Comment: Test Ordered: [id number] Wanda-Danlos Syndrome Panel Test(s) 321534-Zrrjsm was developed and its performance characteristics determined by [facility]. It has not been cleared or approved by the Food and Drug Administration. Result Comment [facility] Reference Range: . PDF report to be sent separately Performed at: [facility] [address], [place], [place] [id number] Head Up Operator Helper: Qian Dunn PhD, Phone: [phone] Performed at: [address] [id number] Head Up Operator Helper: Thai James PhD, Phone: [phone] Performed By: #### L 3100.5310, L801.2600, L509.6001, L3430.0100, L101.9900, L503.0106, L501.6710, L3300.0960, L3100.5055, L3300.1800, L3410.9992, L4600.0100, L3400.0200 ####[facility] [id number] [place], [place], [id number] Chiropractic Reporton 2024 Chiropractic Report [facility] Chiropractic [facility] [place], [place] [address] OFFICE VISIT Date of Service: 03/15/25 MR#: [id number] Acct: [id number] Name: MICHELLE CARLIN ANN Rep #: [id number] : 1980 Provider: YOHANA Saucedo Age/Sex: 44/F [place] [facility] Status: Signed Intake Vital Signs 01/19/25 10:57 Height 5 ft 4 in Intake Visit Reasons: ACUPUNCTURE/ADJUSTMENT Chief Complaint: neck and low back pain Is patient in pain?: Yes (upper and low back) Pain scale (1-10): 1 Allergies suture Allergy (Mild, Verified 03/15/25 10:47) pus tramadol (From Ultram) Adverse Reaction (Intermediate, Verified 03/15/25 10:47) hallucinations shellfish derived Adverse Reaction (Mild, Verified 03/15/25 10:47) Hives hydrocodone bitartrate (From Vicodin) Adverse Reaction (Verified 03/15/25 10:47) Vomiting Medications ???Medication ???Instructions ???Recorded ???Confirmed ???Type multivitamin 1 cap PO DAILY 04/22/18 03/15/25 H istory cholecalciferol (vitamin D3) 50 50 mcg PO QDAY 05/16/24 03/15/25 H istory mcg (2,000 unit) capsule estradiol 2 mg tablet 2 mg PO QDAY 05/16/24 03/15/25 His tory levothyroxine 50 mcg tablet 50 mcg PO QDAY 05/16/24 03/15/25 H istory lisdexamfetamine 30 mg capsule 30 mg PO QAM 05/16/24 03/15/25 His tory (Vyvanse) tizanidine 4 mg capsule 4 mg PO QHS 05/16/24 03/15/25 Hist ory bzrnglctmw-asxlmfsbtywsf-ryo feine 1 tab PO QHS Headache 06/12/24 History 50 mg-325 mg-40 mg tablet diphenhydramine HCl 25 mg capsule 25 mg PO QHS 12/25/24 03/15/25 Hi story (Benadryl) magnesium 100 mg tablet 1,140 mg PO DAILY 01/10/25 5 History oxycodone 5 mg capsule 5 mg PO Q6H PRN pain 3 days #5 cap s 01/19/25 03/15/25 Rx PFSH Medical History Depression Anxiety Injury [...] spouse current occupational status: employed current occupation: [employer] [place] Smoking Status: Never smoker alcohol intake: never substance use type: does not use seatbelt use: always do you feel safe at home: Yes additional social history: - Rashard HPI ACUPUNCTURE/ADJUSTMENT Chief Complaint: upper and low back pain Visit Number: 6 Details: Michelle is a 44 y/o female here to follow up with back pain. Pt. advises her last adjustment and acupuncture treatment was effective to relieve her low back pain flare before leaving for vacation. She states her low back pain has been a mild ache and rates it 09/01. She states her low back pain is equal across bilaterally and extends into the SI area. She also c/o stiffness in her neck, upper back and across her shoulder blades. She states she can feel little knots in her neck as well. She had her botox injections Wednesday which has caused a migraine and she has had a migraine for 2 1/2 days. She denies new injury, numbness, tingling or radiculopathy to her BLE or IVETT. She also gets regular massages and uses a TENS unit at home to treat her pain. She reports chiropractic adjustments and acupuncture are helpful in relieving her pain and discomfort but it gradually returns. Location: neck/low back Duration: frequent Aggravating or associated factors: bending, lifting, botox, stress Relieving factors: chiro Pain Quality: aching, dull and sharp Exam Musc General: Yes normal posture and joint tenderness; No muscle weakness or decreased range of motion Cervical Spine: Yes loss of normal cervical lordosis, Yes cervical muscular tenderness right greater than left diffuse , Yes cervical spasm right greater than left diffuse trapezius and paracervical muscles and Yes misalignment misalignment: C1, C2, C6 and C7 Thoracic/Lumber: No thoracic and lumbar spine normal to inspection (RIL: -IN), Yes paraspinal tenderness (more content not included)... Normal [facility] Progress Noteon 03-06-2025 Progress Note Administrations This Visit onabotulinumtoxin A (BOTOX) injection 200 Units Admin Date 03/06/25 Action Given Dose 200 Units Route IntraMUSCular Site Other Administered By CLEVELAND Lara CNP Ordering Provider: CLEVELAND Lara CNP [facility]: [id number] Lot#: [id number] Resolution Specialist: Allergan Patient Supplied? No Normal [facility] CCP IgG Antibodieson 025 CCP IgG Ab. 6 units Normal 0-19 [facility] Comment on above: Order Comment: Test( s) [id number]-Fahljlkuhjdjgh; 261240- Epinephrine; 824956-Jspmhdvhcqc developed and its performance characteristicsdetermined by [facility]. It has not been cleared or approvedby the Food and Drug Administration. Result Comment: Nega tive <20 Weak positive 20 - 39 Moderate positive 40 - 59 Strong positive >59 Performed By: #### L 3100.5310, L801.2600, L509.6001, L3430.0100, L101.9900, L503.0106, L501.6710, L3300.0960, L3100.5055, L3300.1800, L3410.9992, L4600.0100, L3400.0200 ####[facility] [address] [place], [place], [phone] Catecholamines, Plasmaon DOPAMINE 12.5 pg/mL Normal 0.0-36.7 [facility] Comment on above: Order Comment: Test( s) 138954-Bitwbyybjmxxkk; 622860- Epinephrine; 468492-Dzfwhkkscdu developed and its performance characteristicsdetermined by [facility]. It has not been cleared or approvedby the Food and Drug Administration. Result Comment: Miriam cholamines, Plasma reference intervals based on patient in supine position for at least 20 minutes. Performed By: #### L 3100.5310, L801.2600, L509.6001, L3430.0100, L101.9900, L503.0106, L501.6710, L3300.0960, L3100.5055, L3300.1800, L3410.9992, L4600.0100, L3400.0200 ####[facility] [address] [place], [place], [phone]([phone] EPINEPHRINE 39.0 pg/mL Normal 0.0-55.4 [facility] Comment on above: Order Comment: Test( s) 548483-Uijrzinhevkutg; 094079- Epinephrine; 244462-Echrhmspakn developed and its performance characteristicsdetermined by [facility]. It has not been cleared or approvedby the Food and Drug Administration. Performed By: #### L 3100.5310, L801.2600, L509.6001, L3430.0100, L101.9900, L503.0106, L501.6710, L3300.0960, L3100.5055, L3300.1800, L3410.9992, L4600.0100, L3400.0200 ####[facility] [address] [place], [address] NOREPINEPHRINE 468 pg/mL Normal 115-524 [facility] Comment on above: Order Comment: Test( s) 199009-Arysxqtcprtocr; 241639- Epinephrine; 468694-Lstlmatjgrf developed and its performance characteristicsdetermined by [facility]. It has not been cleared or approvedby the Food and Drug Administration. Performed By: #### L 3100.5310, L801.2600, L509.6001, L3430.0100, L101.9900, L503.0106, L501.6710, L3300.0960, L3100.5055, L3300.1800, L3410.9992, L4600.0100, L3400.0200 ####[facility] [address] [place], [address] Estrogen, Total, Serumon ESTROGENS,TOTAL 599 pg/mL Normal . [facility] Comment on above: Order Comment: Test( s) 319858-Gkmtvspxdogyzn; 727267- Epinephrine; 238684-Hwdanpfracn developed and its performance characteristicsdetermined by [facility]. It has not been cleared or approvedby the Food and Drug Administration.UNKN Result Comment: Prep ubertal < 40 Female Cycle: 1-10 Days 16 - 328 11-20 Days 34 - 501 21-30 Days 48 - 350 Post-Menopausal 40 - 244 Performed at: [address] [id number] Head Up Operator Helper: Luis Barnett MD, Phone: [phone] Performed at: [address] [id number] Head Up Operator Helper: Thai James PhD, Phone: [phone] Performed By: #### L 3100.5310, L801.2600, L509.6001, L3430.0100, L101.9900, L503.0106, L501.6710, L3300.0960, L3100.5055, L3300.1800, L3410.9992, L4600.0100, L3400.0200 ####[facility] [address] [place], [address] Gastrin, Serumon 02-26-2025 GASTRIN 25 pg/mL Normal 0-115 [facility] Comment on above: Order Comment: Test( s) 087557-Vdqvlnbfuffllv; 032132- Epinephrine; 187374-Boawruhqumz developed and its performance characteristicsdetermined by [employer]. It has not been cleared or approvedby the Food and Drug Administration.UNK Result Comment: Siem ens Immulite 2000 Immunochemiluminometric assay (ICMA) Values obtained with different assay methods or kits cannot be used interchangeably. Results cannot be interpreted as absolute evidence of the presence or absence of malignant disease. Performed By: #### L 3100.5310, L801.2600, L509.6001, L3430.0100, L101.9900, L503.0106, L501.6710, L3300.0960, L3100.5055, L3300.1800, L3410.9992, L4600.0100, L3400.0200 ####[facility] [address] [place], [address] Testosterone, Total / Freeon 02-26-2025 TESTOSTER,FREE 0.10 ng/dL Normal 0.10-0.85 [facility] Comment on above: Order Comment: Test( s) 354216-Cuckitirrvxvns; 915804- Epinephrine; 784716-Cmzqowwiyul developed and its performance characteristicsdetermined by [employer]. It has not been cleared or approvedby the Food and Drug Administration.NUNK Performed By: #### L 3100.5310, L801.2600, L509.6001, L3430.0100, L101.9900, L503.0106, L501.6710, L3300.0960, L3100.5055, L3300.1800, L3410.9992, L4600.0100, L3400.0200 ####[facility] [address] [place], [place], [address] TESTOSTER,TOTAL 6 ng/dL Normal 4-50 [facility] Comment on above: Order Comment: Test( s) 702596-Aleefrfoihwjsc; 726877- Epinephrine; 583132-Eartubwpavd developed and its performance characteristicsdetermined by [facility]. It has not been cleared or approvedby the Food and Drug Administration.NUNK Performed By: #### L 3100.5310, L801.2600, L509.6001, L3430.0100, L101.9900, L503.0106, L501.6710, L3300.0960, L3100.5055, L3300.1800, L3410.9992, L4600.0100, L3400.0200 ####[facility] [address] [place], [place], [phone] TESTOSTERONE,%F 1.65 Normal 0.50-2.80 [facility] Comment on above: Order Comment: Test( s) 553686-Lnlbkrpyirugaz; 898981- Epinephrine; 635352-Eklcmsyabbr developed and its performance characteristicsdetermined by [employer]. It has not been cleared or approvedby the Food and Drug Administration.NUNK Performed By: #### L 3100.5310, L801.2600, L509.6001, L3430.0100, L101.9900, L503.0106, L501.6710, L3300.0960, L3100.5055, L3300.1800, L3410.9992, L4600.0100, L3400.0200 ####[facility] [address] [place], [place], [address] PROGESTERONE 4317on 02-24-20 25 PROGESTERONE 0.1 ng/mL Normal . [facility] Comment on above: Order Comment: TEVINK Result Comment: Foll icular phase 0.1 - 0.9 Luteal phase 1.8 - 23.9 Ovulation phase 0.1 - 12.0 First trimester 11.0 - 44.3 Second trimester 25.4 - 83.3 Third trimester 58.7 - 214.0 Postmenopausal 0.0 - 0.1 Performed at: [facility] [address] [id number] Head Up Operator Helper: Luis Barnett MD, Phone: [phone] Performed at: [facility] [address] [id number] Head Up Operator Helper: Thai James PhD, Phone: [phone] Performed By: #### L 3100.5310, L801.2600, L509.6001, L3430.0100, L101.9900, L503.0106, L501.6710, L3300.0960, L3100.5055, L3300.1800, L3410.9992, L4600.0100, L3400.0200 ####[facility] [address] [place], [place], [address] Vitamin D 1,25-Dihydroxyon 0 02-23-2025 VIT D 1,25 DIHY 40.2 pg/mL Normal 24.8-81.5 [facility] Comment on above: Performed By: #### L 3100.5310, L801.2600, L509.6001, L3430.0100, L101.9900, L503.0106, L501.6710, L3300.0960, L3100.5055, L3300.1800, L3410.9992, L4600.0100, L3400.0200 ####[facility] [address] [place], [address] Chiropractic Reporton 2024 Chiropractic Report [facility] [address] [place] [address] OFFICE VISIT Date of Service: 02/22/25 MR#: [id number] Acct: [id number] Name: MICHELLE CARLIN Rep #: [id number] : 1980 Provider: YOHANA Saucedo Age/Sex: 44/F Location[place] [facility] Status: Signed Intake Vital Signs 01/19/25 10:57 Height 5 ft 4 in Intake Visit Reasons: ACUPUNCTURE/ADJUSTMENT Chief Complaint: neck and low back pain Is patient in pain?: Yes (low back and neck ) Pain scale (1-10): 5 Allergies suture Allergy (Mild, Verified 02/22/25 16:53) pus tramadol (From Ultram) Adverse Reaction (Intermediate, Verified 02/22/25 16:53) hallucinations shellfish derived Adverse Reaction (Mild, Verified 02/22/25 16:53) Hives hydrocodone bitartrate (From Vicodin) Adverse Reaction (Verified 02/22/25 16:53) Vomiting Medications ???Medication ???Instructions ???Recorded ???Confirmed ???Type multivitamin 1 cap PO DAILY 04/22/18 02/22/25 H istory cholecalciferol (vitamin D3) 50 50 mcg PO QDAY 05/16/24 02/22/25 H istory mcg (2,000 unit) capsule estradiol 2 mg tablet 2 mg PO QDAY 05/16/24 02/22/25 His tory levothyroxine 50 mcg tablet 50 mcg PO QDAY 05/16/24 02/22/25 H istory lisdexamfetamine 30 mg capsule 30 mg PO QAM 05/16/24 02/22/25 His tory (Vyvanse) tizanidine 4 mg capsule 4 mg PO QHS 05/16/24 02/22/25 Hist ory tyfvxojygm-pkxtsnbivtdpu-avu feine 1 tab PO QHS Headache 06/12/24 History 50 mg-325 mg-40 mg tablet diphenhydramine HCl 25 mg capsule 25 mg PO QHS 12/25/24 02/22/25 Hi story (Benadryl) magnesium 100 mg tablet 1,140 mg PO DAILY 01/10/25 5 History oxycodone 5 mg capsule 5 mg PO Q6H PRN pain 3 days #5 cap s 01/19/25 02/22/25 Rx PFSH Medical History Depression Anxiety Injury [...] spouse current occupational status: employed current occupation: [employer] [place] Smoking Status: Never smoker alcohol intake: never substance use type: does not use seatbelt use: always do you feel safe at home: Yes additional social history: - Rashard CABRERA ACUPUNCTURE/ADJUSTMENT Chief Complaint: Back Pain/HAs Details: Michelle is a 44 y/o female here to follow up with back pain. Pt. advises her last adjustment was helpful. She states her low back pain flared Wednesday night while changing loads of laundry. She states she was barely able to walk Wednesday d/t the intense sharp pain. She states the pain rated 8/10. She has been treating pain with Stim, Flexeril, lidocaine patches, Ibuprofen and Tylenol. She states it has improved some but it still bothering her. She rates her low back pain 5/10 today. She states her low back pain is equal across bilaterally and extends into the SI area. She also c/o stiffness in her neck and her thoracic muscles are very tight as well. She rates her neck pain 4/10 today. She gets frequent HAs.She denies new injury, numbness, tingling or radiculopathy to her BLE or IVETT. She also gets regular massages and uses a TENS unit at home to treat her pain. She reports chiropractic adjustments are helpful in relieving her pain and discomfort but it gradually returns. Location: neck, low back Duration: frequent Aggravating or associated factors: BENDING,LIFTING,TWISTING,str ess Relieving factors: CHIRO Pain Quality: aching, dull and sharp Exam [...] and C7 Thoracic/Lumber: No thoracic and lumbar s (more content not included)... Normal [facility] CRPon 02-21-2025 C-REACTIVE PROT < 3.00 Normal 0.0-3.0 [facility] Comment on above: Order Comment: RH-DU PLICATE ORDER FOR BOTH DRS Performed By: #### L 3100.5310, L801.2600, L509.6001, L3430.0100, L101.9900, L503.0106, L501.6710, L3300.0960, L3100.5055, L3300.1800, L3410.9992, L4600.0100, L3400.0200 #### [facility] [address] [place], [address] Erythrocyte Sed Rateon 02-21 SED RATE 9 mm/hr Normal 0-30 [facility] Comment on above: Order Comment: RH-DU PLICATE ORDER FOR BOTH DRS Performed By: #### L 3100.5310, L801.2600, L509.6001, L3430.0100, L101.9900, L503.0106, L501.6710, L3300.0960, L3100.5055, L3300.1800, L3410.9992, L4600.0100, L3400.0200 #### [facility] [address] [place], [place], [phone] Erythrocyte sedimentation ra teOrdered By: Unruly Toscano on 02-21-2025 ESR (Bld) [Velocity] 9 mm/h 0-30 [facility] FSH and LHon 02-21-2025 FSH 155.0 mIU/mL Normal [facility] Comment on above: Order Comment: RH-DU PLICATE ORDER FOR BOTH DRS Result Comment: FEMA LE: Follicular: 1.4 - 18.1 mIU/mL Midcycle: 3.4 - 33.4 mIU/mL Luteal: 1.5 - 9.1 mIU/mL Post Menopause: 23.0 - 116.3 mIU/mL MALE: 1.4 - 18.1 mIU/mL Performed By: #### L 3100.5310, L801.2600, L509.6001, L3430.0100, L101.9900, L503.0106, L501.6710, L3300.0960, L3100.5055, L3300.1800, L3410.9992, L4600.0100, L3400.0200 ####[facility] [address] [facility] [place], [place], [id number] LH 131.0 mIU/mL Normal [facility] Comment on above: Order Comment: RH-DU PLICATE ORDER FOR BOTH DRS Result Comment: FEMA LE: Follicular: 1.9-12.5 mIU/mL Midcycle: 8.7-76.3 mIU/mL Luteal: 0.5-16.9 mIU/mL Post Menopause: 15.9-54.0 mIU/mL MALE: 20-70 Years: 1.5-9.3 mIU/mL >70 Years: 3.1-34.6 mIU/mL Performed By: #### L 3100.5310, L801.2600, L509.6001, L3430.0100, L101.9900, L503.0106, L501.6710, L3300.0960, L3100.5055, L3300.1800, L3410.9992, L4600.0100, L3400.0200 ####[facility] [address] [place], [place], [phone] Free testosterone percentage Ordered By: Unruly Toscano on 02-21-2025 Testosterone Free/Testosterone.t otal [Mass fraction] 1.65 % 0.50-2.80 [facility] Gastrin, serumOrdered By: Ra erin Toscano on 02-21-2025 Gastrin [Mass/Vol] 25 pg/mL 0-115 [facility] Comment on above: Siemens Immulite 200 0 Immunochemiluminometric assay (ICMA)Values obtained with different assay methods or kits cannotbe used interchangeably. Results cannot be interpreted asabsolute evidence of the presence or absence of malignantdisease. L509.6001on 02-21-2025 CORTISOL 16.00 ug/dL Normal 6.02-18.40 [facility] Comment on above: Order Comment: RH-DU PLICATE ORDER FOR BOTH DRS FELIPAK Performed By: #### L 3100.5310, L801.2600, L509.6001, L3430.0100, L101.9900, L503.0106, L501.6710, L3300.0960, L3100.5055, L3300.1800, L3410.9992, L4600.0100, L3400.0200 #### [facility] [address] [place], [place], [phone] LH ser/plasOrdered By: Rl dominguez Friend on 02-21-2025 Lutropin Qn 131.0 m[IU]/mL [facility] Comment on above: FEMALE:Follicular: 1 .9-12.5 mIU/mLMidcycle: 8.7-76.3 mIU/mLLuteal: 0.5-16.9 mIU/mLPost Menopause: 15.9-54.0 mIU/mLMALE:20-70 Years: 1.5-9.3 mIU/mL>70 Years: 3.1-34.6 mIU/mL Plasma epinephrine measureme nt (mass/volume)Ordered By: Unruly Toscano on 02-21-2025 EPINEPHrine (P) [Mass/Vol] 39.0 pg/mL 0.0-55.4 [facility] Plasma norepinephrine measur ement (mass/volume)Ordered By: Unruly Toscano on 02-21-2025 Norepinephrine (P) [Mass/Vol] 468 pg/mL 115-524 [facility] Rheumatoid Factoron 02-22-20 25 RHEUMATOID FAC < 10.0 Normal <15 [facility] Comment on above: Order Comment: RH-DU PLICATE ORDER FOR BOTH DRS Performed By: #### L 505.7010 #### [facility] [address] [place], [address] Serum or plasma C reactive p rotein measurement (mass/volume)Ordered By: Unruly Toscano on 02-21-2025 CRP [Mass/Vol] mg/L 0.0-3.0 [facility] Serum or plasma calcitriol m easurement (mass/volume)Ordered By: Unruly Toscano on 02-21-2025 1,25-dihydroxyvitam in D3 [Mass/Vol] 40.2 pg/mL 24.8-81.5 [facility] Serum or plasma cortisol tony surement (mass/volume)Ordered By: Unruly Toscano on 02-21-2025 Cortisol [Mass/Vol] 16.00 ug/dL 6.02-18.40 [facility] Serum or plasma cyclic citru llinated peptide IgG antibody assay (units/volume)Ordered By: Unruly Toscano on 02-21-2025 Cyclic citrullinated peptide IgG Qn 6 units 0-19 [facility] Comment on above: Negative <20 Weak po sitive 20 - 39 Moderate positive 40 - 59 Strong positive >59 Serum or plasma dopamine tony surement (mass/volume)Ordered By: Unruly Toscano on 02-21-2025 DOPamine [Mass/Vol] 12.5 pg/mL 0.0-36.7 [facility] Comment on above: Catecholamines, Plas ma reference intervals based on patientin supine position for at least 20 minutes. Serum or plasma estrogen tony surement (mass/volume)Ordered By: Unruly Toscano on 02-21-2025 Estrogen [Mass/Vol] 599 pg/mL . [facility] Comment on above: Prepubertal < 40 Fem sarina Cycle: 1-10 Days 16 - 328 11-20 Days 34 - 501 21-30 Days 48 - 350 Post-Menopausal 40 - 244Performed at: [facility] [employer] [id number] Director: Luis Barnett MD, Phone: [phone] at: [facility] [place] [id number] [place], [place] [id number] Director: Thai James PhD, Phone: [phone] Serum or plasma free testost erone measurement (mass/volume)Ordered By: Unruly Toscano on 02-21-2025 Testosterone Free [Mass/Vol] 0.10 ng/dL 0.10-0.85 [facility] Serum rheumatoid factor dete ctionOrdered By: Mirna Gunderson on 02-21-2025 Rheumatoid factor Ql (S) < 10.0 IU/mL <15 [facility] Testosterone, totalOrdered B y: Unruly Toscano on 02-21-2025 Testosterone [Mass/Vol] 6 ng/dL 4-50 [facility] Vitamin B12on 02-21-2025 Cobalamin (Vitamin B12) [Mass/Vol] 1026 pg/mL High 180-914 [facility] Comment on above: Order Comment: RH-DU PLICATE ORDER FOR BOTH DRS Performed By: #### L 3100.5310, L801.2600, L509.6001, L3430.0100, L101.9900, L503.0106, L501.6710, L3300.0960, L3100.5055, L3300.1800, L3410.9992, L4600.0100, L3400.0200 #### [facility] [address] [place], [address] Vitamin B12 ser/plasOrdered By: Unruly Toscano on 02-21-2025 Cobalamin (Vitamin B12) [Mass/Vol] 1026 pg/mL High 180-914 [facility] Gastroenterology Visit Repor ton 02-20-[address] [facility] [address] [place] [address] OFFICE VISIT Date of Service: 02/20/25 MR#: [id number] Acct: [id number] Name: MICHELLE CARLIN Rep #: [id number] : 1980 Provider: Unruly Toscano DO Age/Sex: 44/F [place] [facility] Status: Signed Intake Vital Signs 06/13/24 13:21 11/22/24 09:46 01/19/25 10:57 Height 5 ft 4 in 5 ft 4 in 5 ft 4 in Intake Visit Reasons: 4 M FU Allergies suture Allergy (Mild, Verified 02/06/25 10:02) pus tramadol (From Ultram) Adverse Reaction (Intermediate, Verified 02/06/25 10:02) hallucinations shellfish derived Adverse Reaction (Mild, Verified 02/06/25 10:02) Hives hydrocodone bitartrate (From Vicodin) Adverse Reaction (Verified 02/06/25 10:02) Vomiting Medications ???Medication ???Instructions ???Recorded ???Confirmed ???Type multivitamin 1 cap PO DAILY 04/22/18 02/20/25 H istory cholecalciferol (vitamin D3) 50 50 mcg PO QDAY 05/16/24 02/20/25 H istory mcg (2,000 unit) capsule estradiol 2 mg tablet 2 mg PO QDAY 05/16/24 02/20/25 His tory levothyroxine 50 mcg tablet 50 mcg PO QDAY 05/16/24 02/20/25 H istory lisdexamfetamine 30 mg capsule 30 mg PO QAM 05/16/24 02/20/25 His tory (Vyvanse) tizanidine 4 mg capsule 4 mg PO QHS 05/16/24 02/20/25 Hist ory ehxnjbtjih-nhmbogxthhpti-apf feine 1 tab PO QHS Headache 06/12/24 History 50 mg-325 mg-40 mg tablet diphenhydramine HCl 25 mg capsule 25 mg PO QHS 12/25/24 02/20/25 Hi story (Benadryl) magnesium 100 mg tablet 1,140 mg PO DAILY 01/10/25 5 History oxycodone 5 mg capsule 5 mg PO Q6H PRN pain 3 days #5 cap s 01/19/25 02/20/25 Rx PFSH Medical History Depression Anxiety Injury [...] spouse current occupational status: employed current occupation: [employer] [place] Smoking Status: Never smoker alcohol intake: never substance use type: does not use seatbelt use: always do you feel safe at home: Yes additional social history: - Rashard HPI HPI Details: MICHELLE CARLIN, is a 44 F who presents to the office today for follow up. *BGI established 9.24.24 for LLQ pain since . Pt reports having irregular BMs diarrhea, with some formed stools. Pt reports seeing mucus, oily stools. Pt denies blood in stools Pt has lost 20lbs in 6 months. Pt takes magnesium, probiotics, and multivitamin daily. abd/pelvis CT 06.06.24 No significant compression of the duodenum from the SMA and aorta. No findings to suggest SMA syndrome. GET 11..24 normal 46.84 minutes EGD and Colonoscopy 06.13.24 [...] of the ileum was normal. Biopsied. OV 1 pt reports continued symptoms from previous visit. [...] trouble with food, occasionally liquid as well. OV 7..25 pt reports continued symptoms of LLQ pain; is not as severe as long as she is having looser stools, epigastric discomfort, and daily nausea. Pt also notes loose stool after eating. ROS Const Constitutional: Pos (more content not included)... Normal [facility] Chiropractic Reporton 2024 Chiropractic Report [facility] [address] [place] [address] OFFICE VISIT Date of Service: 02/06/25 MR#: [id number] Acct: [id number] Name: MICHELLE CARLNI ANN Rep #: [id number] : 1980 Provider: YOHANA Saucedo Age/Sex: 44/F Location[place] [facility] Status: Signed Intake Vital Signs 01/09/25 11:22 01/19/25 10:57 Height 5 ft 4 in 5 ft 4 in Intake Visit Reasons: Back pain Chief Complaint: neck and low back pain Is patient in pain?: Yes (2 - LB 4-Neck) Allergies suture Allergy (Mild, Verified 02/06/25 10:02) pus tramadol (From Ultram) Adverse Reaction (Intermediate, Verified 02/06/25 10:02) hallucinations shellfish derived Adverse Reaction (Mild, Verified 02/06/25 10:02) Hives hydrocodone bitartrate (From Vicodin) Adverse Reaction (Verified 02/06/25 10:02) Vomiting Medications ???Medication ???Instructions ???Recorded ???Confirmed ???Type multivitamin 1 cap PO DAILY 04/22/18 02/06/25 H istory cholecalciferol (vitamin D3) 50 50 mcg PO QDAY 05/16/24 02/06/25 H istory mcg (2,000 unit) capsule estradiol 2 mg tablet 2 mg PO QDAY 05/16/24 02/06/25 His tory levothyroxine 50 mcg tablet 50 mcg PO QDAY 05/16/24 02/06/25 H istory lisdexamfetamine 30 mg capsule 30 mg PO QAM 05/16/24 02/06/25 His tory (Vyvanse) tizanidine 4 mg capsule 4 mg PO QHS 05/16/24 02/06/25 Hist ory eufoltxnek-dongowajextvd-eao feine 1 tab PO QHS Headache 06/12/24 History 50 mg-325 mg-40 mg tablet diphenhydramine HCl 25 mg capsule 25 mg PO QHS 12/25/24 02/06/25 Hi story (Benadryl) magnesium 100 mg tablet 1,140 mg PO DAILY 01/10/25 5 History oxycodone 5 mg capsule 5 mg PO Q6H PRN pain 3 days #5 cap s 01/19/25 02/06/25 Rx PFSH Medical History Depression Anxiety Injury [...] spouse current occupational status: employed current occupation: [employer] [place] Smoking Status: Never smoker alcohol intake: never substance use type: does not use seatbelt use: always do you feel safe at home: Yes additional social history: - Rashrad HPI Back pain Chief Complaint: neck and low back pain Visit Number: 4 Details: Michelle is a 44 y/o female here to follow up with back pain. Pt. advises her last adjustment was helpful. She states her neck is stiff and seems to be worse on the left side today. She rates her neck pain 4/10 today. She has had frequent CANTU lately that are mostly frontal and may radiate to the R or L side. She states her low back pain is equal across bilaterally and extends into the SI area. She rates the low back pain 2/10 today but can be sharp and intense at moments. She has cold hands/feet with night sweats and thirst. She has a history of hysterectomy. She denies new injury, numbness, tingling or radiculopathy to her BLE or IVETT. She also gets regular massages and uses a TENS unit at home to treat her pain. She reports chiropractic adjustments are helpful in relieving her pain and discomfort but it gradually returns. Location: neck/back pain/HAs Duration: frequent Aggravating or associated factors: bending, [...] than left (upper thoracic/ lower lumbar), Yes thoraco-lum (more content not included)... Normal [facility] Hepatobilliary Img w/Pharm I nton 02-06-2025 Hepatobilliary Img w/Pharm Int [facility] Imaging Services [address] [place] [address] Hepatobilliary Img w/Pharm Int MR#: [id number] Acct: [id number] Name: MICHELLE CARLIN ANN Rep #: [id number] : 1980 F 44 From: Bakari cantu MD PCP: Dr. Mark Shabazz MD Status: REG CLI Study: Hepatobilliary Img w/Pharm Int Date of Exam: 0 02/06/25 Exam# [id number] Ordering Dr: Unruly Toscano DO PROCEDURE: HEPATOBILLIARY [...] IMPRESSION: Normal gallbladder ejection fraction. Reading Location: [place] [address] CC: Dr. 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 Chiropractic Reporton 2024 Chiropractic Report [facility] [address] [place] [address] OFFICE VISIT Date of Service: 01/29/25 MR#: [id number] Acct: [id number] Name: MICHELLE CARLIN ANN Rep #: [id number] : 1980 Provider: YOHANA Saucedo Age/Sex: 44/F Location[place] [facility] Status: Signed Intake Vital Signs 01/09/25 11:22 [...] mg PO QHS 05/16/24 01/29/25 Hist ory qbtwnunrcq-hyisikygtkqwu-yjg feine 1 tab PO QHS Headache 06/12/24 [...] spouse current occupational status: employed current occupation: [employer] Smoking Status: Never smoker alcohol intake: [...] ( (more content not included)... Normal [facility] Chiropractic Reporton 2024 Chiropractic Report [facility] [address] [place] [address] OFFICE VISIT Date of Service: 01/23/25 MR#: [id number] Acct: [id number] Name: MICHELLE CARLIN ANN Rep #: [id number] : 1980 Provider: YOHANA Saucedo Age/Sex: 44/F Location[place] [facility] Status: Signed Intake Vital Signs 01/09/25 11:22 [...] mg PO QHS 05/16/24 01/23/25 Hist ory avsfrxhdod-avenduwgqqizh-sld feine 1 tab PO QHS Headache 06/12/24 [...] spouse current occupational status: employed current occupation: [employer] [place] Smoking Status: Never smoker alcohol intake: [...] Thorac (more content not included)... Normal [facility] Office Visiton 01-23-2025 Follow-up visit [id number] Michelle Carlin 1980 F Date Provider Department Center 01/23/2025 [facility]O P None Family History Problem Relation [...] Sister Father's Sister Paternal Grandfather Level of Service:56647 [place] OFFICE/OUTPATIENT ESTABLISHED LOW MDM 20 MIN Reason for Visit and Comments: Procedure [88] Normal [facility] Progress Noteon 01-23-2025 Progress Note [facility] Primary Care Physician: Mark [...] is seen in the [facility] CL[facility] of [facility] for migraines. Patient states she has suffered [...] Dispense Refill ALPRAZolam (Xanax) 0.5 MG tablet uoxzfopdxv-inbzthwfyyube-shw feine 50-325-40 MG tablet Take 1 tablet [...] CNP tr (more content not included)... Normal [facility] Discharge Instructionon 12-23 Discharge Instruction [facility] Medical Records Department [address] [place] [address] Instructions for Home/Discharge Instructions 01/19/25 1207 MR#: [id number] Acct: [id number] Name: MICHELLE CARLIN Rep #: [id number] : 1980 44 From: Diann Perez MD PCP: Dr. Mark Shabazz MD Status:REG [facility] Discharge Instructions Diet Discharge Diet: No restrictions [...] Up Care Please Follow Up With: Diann Peerz MD When: Please call [phone] for an appointment to be seen in 2 week. Test Results: Test results from this visit will be discussed in further detail at your follow-up appointment, if applicable. Discharge Plan Admission Attending Provider: Diann Perez Primary Care Provider: Mark Shabazz Instructions Print Language: Pitcairn Islander Discharge Orders/Prescriptions Prescriptions: New oxycodone 5 mg [...] 100 mg tablet 1,140 mg PO DAILY ybpjizssiy-wtjbuqbsaczok-azd f 1 TABLET tablet 1 tab PO QHS Referrals / Follow Up: Mark Shabazz MD [Primary Care Provider] - Disposition Disposition (needs filled in before D/C Order can be placed): Home, Self Care 01/19/25 1209 Diann Perez MD CC: Dr. Mark Shabazz MD Signed [facility] MR/POSTOP.[facility] 01-19-2025 MR/POSTOP.[facility] Medical Records Department [address] [place] [address] Anesthesia Postop Eval I 01/19/25 1229 MR#: [id number] Acct: [id number] Name: MICHELLE CARLIN ANN Rep #: [id number] : 1980 44 From: Sandra Rowley CRNA PCP: Dr. Mark Shabazz MD Status:REG SDC Y Race: C Location: [place] [address] Anesthesia: Postop Eval I Current Vital Signs [...] completed: Yes 01/19/25 1231 Date Sandra Rowley CRNA Cosigner Signature: Date CC: Signed [facility] MR/IFXCXQRV9dp 01-19-2025 MR/POSTOPAN2 [facility] Medical Records Department [address] [place] [address] Anesthesia Postop Eval II 01/19/251639 MR#: [id number] Acct: [id number] Name: MICHELLE CARLIN Rep #: [id number] : 1980 44 From: Elis Molina CORK TIPPER PCP: Dr. Mark Shabazz MD Status:DEP [facility] Y Race: C Location: [facility] Anesthesia Postop Eval I Sum Postop Eval Completion status Anesthesia document: Postop Eval 1 completed: Yes Anesthesia Postop Eval I Summary Anesthesia Postop Eval I Summary: Anesthesia Postop Eval I: Assessment Summary Airway patent Yes 01/19/25 12:31 CORK TIPPER.GDOTT Spontaneous unlabored Yes 01/19/25 12:31 CORK TIPPER.GDOTT respirations Mental status Awake,Calm 01/19/25 12:31 CORK TIPPER.GDOTT nausea No 01/19/25 12:31 CORK TIPPER.GDOTT Vomiting No 01/19/25 12:31 CORK TIPPER.GDOTT Anesthesia Postop Eval I: Fluid Summary Crystalloid volume administer 600 01/19/25 12:31 CORK TIPPER.GDOTT (ml) Colloids volume administered ( ml) Blood Product volume administered (ml) Total IV fluid infused 600 01/19/25 12:31 CORK TIPPER.GDOTT Anesthesia Postop Eval I: Summary Notes Anesthesia Complication No 01/19/25 12:31 CORK TIPPER.GDOTT Anesthesia Complication Comment: Post-operative progress note Anesthesia: Postop Eval II Evaluation Mental status: Awake Pain Level: 1 nausea: No Vomiting: No 01/19/251639 Date Elis Molina CORK TIPPER Cosigner Signature: Date CC: Signed [facility] Operative Reporton 05-30-202 5 Operative Report [facility] Medical Records Department [address] [place] [address] Operative Report 01/19/25 1204 MR#: [id number] Acct: [id number] Name: MICHELLE CARLIN Rep #: [id number] : 1980 44 From: Diann Perez MD PCP: Dr. Mark Shabazz MD Status:[facility] Location: [place] [address] Operative Report (Standard) Operative Information Date of Procedure: 01/19/25 Pre-Operative Diagnosis: Left breast mass 12:00 3 cm from the nipple Post-Operative Diagnosis: Same Surgery/Procedure Performed: Ultrasound wire needle localization excisional left breast biopsy family law attorney: Yes Farm Management Adviser: Parth Alexander Tasks completed by multimedia production assistant: Opening closing and Retracting Type of Anesthesia: [...] was delivered into the wound. 2 silk wwzscg-wi-nzzgo stay suture was placed around the wire [...] Dr. Diann Perez MD Signed [facility] Surgery Specimen Level Bora 01-19-2025 Surgery Specimen Level IV -------- Patient Age/Sex Location Account Attending Physician -------- MICHELLE CARLIN 44/F [facility] [id number] Dr. Diann Perez MD -------- Specimen: [id number] Received: 01/19/25 Status: THOMAS Hardy Num: [id number] Spec Type: BREAST BX Subm Dr: Dr. [...] formalin fixation: Between 6 and 72 hours. [facility] 01-19-2025 CPT:87594 -------- Patient Age/Sex Location Account Attending Physician -------- MICHELLE CARLIN 44/F [facility] [id number] Dr. Diann Perez MD -------- Signed (signature on file) Dr. Day Marcial MD 01/22/25 15[address] -------- [address] [facility] Comment on above: Performed By: #### P SUIV #### [facility] [address] [facility] [place], [address] MR/PAT.ANEon 01-10-2025 MR/PAT.MOHAMUD [facility] Medical Records Department [address] [place] [address] PAT - Anesthesia 01/10/25 1140 MR#: [id number] Acct: [id number] Name: MICHELLE CARLIN Rep #: [id number] : 1980 44 From: Domingo Gupta MD PCP: Dr. Mark Shabazz MD Status:PRE [facility] Y Race: C Location: [facility] Pre-Assessment Diagnosis/Proposed Procedure Planned Operative Procedure(s): LEFT BREAST U/S WIRE LOCALIZATION EXCISIONAL BIOPSY Anesthesia History Anesthesia History - core finisher: Anesthesia History - core finisher Hx Hospitalization No 01/10/25 11:26 Any Problems [...] take am of surgery PONV PONV - core finisher: PONV - core finisher Female Yes 01/10/25 11:26 HX of Motion [...] 12/25/24 15:07 Respiratory Assessment Respiratory Assessment - core finisher: Respiratory Tract Infection Hx - core finisher Hx Respiratory Tract Infection No 01/10/25 11:26 STOP Sleep Apnea STOP Sleep Apnea - core finisher: STOP Sleep Apnea - core finisher Hx Hypertension No 01/10/25 11:26 Hx Sleep [...] Tobacco Use History Tobacco Use History - core finisher: Tobacco Use History - core finisher Tobacco Use Smoking Status Never smoker 01/10/25 11:26 Hx Tobacco Use No 01/10/25 11:26 Years Smoking Packs Smoked per Day Smoking Cessation Date was within the last 15 years Hx Smoking Cessation Date Hx Smoking Cessation Counseling Hematologic Medial History Hematologic Hx - core finisher: 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 Normal [facility] Cerv Spine 2 or 3 Viewson Cerv Spine 2 or 3 Views [facility] Imaging Services [address] [place], [place] [address] Cerv Spine 2 or 3 Views MR#: [id number] Acct: [id number] Name: MICHELLE CARLIN ANN Rep #: [id number] : 1980 F 44 From: Rickie Smith MD PCP: Dr. Mark Shabazz MD Status: REG CLI Study: Cerv Spine 2 or 3 Views Date of Exam: 01/09/25 Exam# [id number] Ordering Dr: Mirna Gunderson D.C. PROCEDURE: CERV [...] No prevertebral soft tissue swelling. Reading Location: [id number] CC: YOHANA Gunderson; Dr. 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 Chiropractic Reporton 2024 Chiropractic Report [facility] [address] [place] [address] OFFICE VISIT Date of Service: 01/09/25 MR#: [id number] Acct: [id number] Name: MICHELLE CARLIN ANN Rep #: [id number] : 1980 Provider: YOHANA Saucedo Age/Sex: 44/F Location: [facility] Status: Signed Intake Vital Signs 06/13/24 13:21 [...] mg PO QHS 05/16/24 01/09/25 Hist ory nojbmfzzwz-ywticfgtagcap-hjo feine 1 tab PO QHS Headache 06/12/24 History 50 mg-325 mg-40 mg tablet diphenhydramine HCl 25 mg capsule 25 mg PO QHS 12/25/24 01/09/25 Hi story (Benadryl) [facility] Medical History (Updated 01/10/25 @ 09:[address] Mirna Gunderson, [place]) Depression Anxiety Injury of head and neck [...] spouse current occupational status: employed current occupation: [employer] [place] Smoking Status: Never smoker alcohol intake: never substance use type: does not use seatbelt use: always do you feel safe at home: Yes additional social history: - Rashard HPI BACK PAIN Chief Complaint: neck and low back pain Visit Number: 1 Details: Michelle is a 44 y/o female here to establish for adult care manager. Pt. advises she has been experiencing neck [...] her BLE. Pt. has been getting adult care manager for the past 10 years which is helpful temporarily. She also gets regular massages and uses a TENS unit at home to treat her pain. Location: neck and low back Duration: constant Aggravating or associated factors: bending, lifting, twisting Relieving factors: chiro (more content not included)... Normal [facility] L/S Spine Min 4 Viewson 12-22 0-2024 L/S Spine Min 4 Views [facility] Imaging Services [address] [place] [address] L/S Spine Min 4 Views MR#: [id number] Acct: [id number] Name: MICHELLE CARLIN Rep #: [id number] : 1980 F 44 From: Rickie Smith MD PCP: Dr. Mark Shabazz MD Status: REG CLI Study: L/S Spine Min 4 Views Date of Exam: 01/09/25 Exam# [id number] Ordering Dr: Mirna Gunderson D.C. PROCEDURE: L/S SPINE MIN 4 VIEWS 01/09/2025 REASON FOR EXAM: BACK PAIN TECHNIQUE: Four views; AP, bilateral oblique and lateral COMPARISON: None available FINDINGS: 5 bvl-sqh-emkfzfw lumbar vertebral type bodies identified. No fracture or malalignment. No evidence of spondylolysis. Disc spaces appear within limits. RAD/L/S Spine Min 4 Views IMPRESSION: Study appears within limits. Reading Location: [id number] CC: [place] Dr. Mirna Gunderson; Dr. 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 Enterography Abd/Baldev 01-03 Enterography Abd/Pel [facility] Imaging Services [address] [place] [address] [id number] Enterography Abd/Pel MR#: [id number] Acct: [id number] Name: MICHELLE CARLIN ANN Rep #: [id number] : 1980 F 44 From: Richard Mccray MD PCP: Dr. Mark Shabazz MD Status: REG CLI Study: Enterography Abd/Pel Date of Exam: 01/03/25 Exam# [id number] Ordering Dr: Unruly Toscano DO EXAM: ENTEROGRAPHY [...] colitis. 4. Status post hysterectomy Reading [facility] CC: Dr. 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 Surgery Visit Reporton 12-25 Surgery Visit Report [facility] [address] [place] [address] OFFICE VISIT Date of Service: 12/25/24 MR#: [id number] Acct: [id number] Name: MICHELLE CARLIN ANN Rep #: [id number] : 1980 Provider: Dr. Diann narvaez MD Age/Sex: 44/F Location: [facility] Status: Signed Intake Vital Signs 11/22/24 09:46 [...] mg PO QHS 05/16/24 12/25/24 Hist ory futnyehrtm-xgnckrtikrzll-iab feine 1 tab PO QHS Headache 06/12/24 History 50 mg-325 mg-40 mg tablet diphenhydramine HCl 25 mg capsule 25 mg PO QHS 12/25/24 12/25/24 Hi story (Benadryl) [facility] Medical History Depression Anxiety Injury of head [...] reflux, No hem (more content not included)... Normal [facility] Progress Noteon 12-12-2024 Progress Note 12/12/2024 Mariana Acuña CNP Trigger point injections Lidocaine [facility] 4794-7144-54 Lot [id number] [address] [facility] 1063-7708-71 Lot [id number] 1 ml [facility] Progress Note Administrations This Visit onabotulinumtoxin A (BOTOX) injection 200 Units Admin Date 12/12/2024 Action Given Dose 200 Units Route IntraMUSCular Site Other Administered By MARIEL Ordering Provider: Mariana Acuña CNP [facility]:[id number] Lot#: [id number] Resolution Specialist: allergan Patient Supplied?: no,buy and bill [facility] Breast Bilateral W/O and Won 11-28-2024 Breast Bilateral W/O and W [facility] Imaging Services [address] [place], [place] [id number] Breast Bilateral W/O and W MR#: [id number] Acct: [id number] Name: MICHELLE CARLIN Rep #: [id number] : 1980 F 44 From: Steffany Chambers MD PCP: Dr. Mark Shabazz MD Status: REG CLI Study: Breast Bilateral W/O and W Date of Exam: 11/28 Exam# [id number] Ordering Dr: Diann Perez MD PROCEDURE: BREAST [...] BI-RADS CATEGORY: BI-RADS 1: NEGATIVE Reading Location: [facility] CC: Dr. Mark Shabazz MD; Dr. Diann Perez MD High School Sports Coach: Signed [facility] Magnetic resonance imaging r eportOrdered By: Steffany Chambers on 11-28-2024 Study report [facility] Imaging Services [address] [place] [address] Breast Bilateral W/O and W MR#: [id number] Acct: [id number] Name: MICHELLE CARLIN Rep #: [id number] : 1980 F 44 From: Peggy Chambers MD PCP: Dr. Mark Shabazz MD Status: REG CLI Study:Breast Bilateral W/O and W Date of Exam : 11/28/24 Exam# [id number] Ordering Dr: Diann Perez MD PROCEDURE: BREAST [...] BI-RADS CATEGORY: BI-RADS 1: NEGATIVE Reading Location: [id number] CC: Dr. Mark Shabazz MD; Dr. Diann Perez MD ~ High School Sports Coach: Signed [facility] Surgery Visit Reporton 11-22 Surgery Visit Report [facility] [address] [place] [address] OFFICE VISIT Date of Service: 11/22/24 MR#: [id number] Acct: [id number] Name: MICHELLE CARLIN Rep #: [id number] : 1980 Provider: Dr. Diann narvaez MD Age/Sex: 44/F Location: [facility] Status: Signed Intake Vital Signs 11/01/24 15:36 [...] mg PO QHS 05/16/24 11/22/24 Hist ory rycgwevzgv-lqxxcdfdeuijt-wxs feine 1 tab PO QHS Headache 06/12/24 History 50 mg-325 mg-40 mg tablet fremanezumab-vfrm 225 mg/1.5 mL 225 mg subcut QMONTH 06/12/24 0410/17 History [facility] Depression Anxiety Injury of head [...] heart (more content not included)... Normal [facility] Breast imaging reportOrdered By: Willy Longo on 11-17-2024 Study report [facility] Imaging Services [address] [place] [address] DIAG MAMM W/CAD, BILAT MR#: [id number] Acct: [id number] Name: MICHELLE CARLIN ANN Rep #: [id number] : 1980 F 44 From: Jelani Longo MD PCP: Dr. Mark Shabazz MD Status: [facility] Study:DIAG MAMM W/CAD, BILAT Date of Exam: 11/14/24 Exam# [id number] Ordering Dr: Maryjane AlvaradoC ADDENDUM by Dr. Willy Longo MD on 11/17/24 at 1346 Correction: A targeted ultrasound examination was done and was negative. Reading Location: [facility] 11/17/24 1346 Date cc: GRAHAM Alvarado; Dr. [...] be mailed to the patient. Reading Location: [facility] CC: GRAHAM Alvarado; Dr. 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 Breast Limited Unilateralon 11-14-2024 Breast Limited Unilateral [facility] Imaging Services [address] [place] [id number] Breast Limited Unilateral MR#: [id number] Acct: [id number] Name: MICHELLE CARLIN Rep #: [id number] : 1980 F 44 From: Willy Cruz PCP: Dr. Mark Shabazz MD Status: [facility] CLI Study: Breast Limited Unilateral Date of Exam: Exam# [id number] Ordering Dr: Maryajne Alvarado PROCEDURE: BREAST LIMITED UNILATERAL 11/14/2024 REASON [...] breast sonogram. Birads: 1, negative. Reading Location: [facility] CC: GRAHAM Alvarado; Dr. 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 DIAG MAMM W/CAD, BILATon DIAG MAMM W/CAD, BILAT [facility] Imaging Services [address] [place] [address] DIAG MAMM W/CAD, BILAT MR#: [id number] Acct: [id number] Name: MICHELLE CARLIN Rep #: [id number] : 1980 F 44 From: Willy Cruz PCP: Dr. Mark Shabazz MD Status: REG CLI Study: DIAG MAMM W/CAD, BILAT Date of Exam: 11/14/24 Exam# [id number] Ordering Dr: Maryjane Alvarado ADDENDUM by Dr. Willy Longo MD on 11/17/24 at 1346 Correction: A targeted ultrasound examination was done and was negative. Reading Location: [facility] 11/17/24 1346 Date cc: GRAHAM Alvarado; Dr. Mark Shabazz MD * Signed EXAM: DIAG MAMM W/CAD, [...] be mailed to the patient. Reading Location: [facility] CC: GRAHAM Alvarado; Dr. 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 L506.1001on 11-01-2024 Vitamin D 25-OH 106.0 ng/mL High 30-100 [facility] Comment on above: Result Comment: [place] min D Status Deficiency: <20 ng/mL (50nmol/L) Insufficiency: 20-30 ng/mL (50-75 nmol/L) Sufficiency: 30-100 ng/mL (75-250 nmol/L) Toxicity: >100 ng/mL (>250 nmol/L) Performed By: #### L 506.1001, L900.0098 ####[facility] [address] [place], [address] Miscellaneous procedureOrder ed By: Mariana Cortez on 11-01-2024 Miscellaneous Test Comment SEE SCANNED REPORT [facility] NATERAon 11-01-2024 NATURA SEE SCANNED REPORT Normal [facility] Comment on above: Performed By: #### L 506.1001, L900.0098 ####[facility] [address] [place], [address] Rehab Trainer Office Visit Reporton 11-01-2024 Rehab Trainer Office Visit Report [facility] [address] [place] [address] OFFICE VISIT Date of Service: 11/01/24 MR#: [id number] Acct: [id number] Name: MICHELLE CARLIN Rep #: [id number] : 1980 Provider: GRAHAM dorado Age/Sex: 44/F Location: [facility] Status: Signed Intake Vital Signs 06/13/24 13:21 11/01/24 15:36 Height 5 ft 4 in 5 ft 4 in Intake Visit Reasons: Left breast lump per [place] Chief Complaint: Left breast lump Automatic Door Mechanic Required: No Is patient in pain?: No [...] mg PO QHS 05/16/24 11/01/24 Hist ory vfpfcngwte-qyibuqlwbpmnb-vhq feine 1 tab PO QHS Headache 06/12/24 History 50 mg-325 mg-40 mg tablet fremanezumab-vfrm 225 mg/1.5 mL 225 mg subcut QMONTH 06/12/2410/21 History subcutaneous auto-injector (Ajovy) Is last menstrual period known: No Post menopausal: Yes Patient : No : No Control Method: Hysterectomy [facility] Medical History Depression Anxiety Injury of head [...] 2009) History of dilation and curettage ( 2014) [...] - Rashard HPI Left breast lump per [place] Details: MICHELLE CARLIN is a 44 year [...] Date Name GA/Weeks Outcome Route Bth Weight Gen Labor Lgth Anesthesia Del Locatn Provider FOB Unknown [place]- Adopted Unknown Vick [...] l (more content not included)... Normal [facility] Vitamin D, 25-hydroxyOrdered By: Mariana Cortez on 11-01-2024 Vitamin D 25-Hydroxy 106.0 ng/mL High 30-100 [facility] Comment on above: Vitamin D StatusDefi ciency: <20 ng/mL (50nmol/L)Insufficiency: 20-30 ng/mL (50-75 nmol/L)Sufficiency: 30-100 ng/mL (75-250 nmol/L)Toxicity: >100 ng/mL (>250 nmol/L) Progress Noteon 10-31-2024 Progress Note [facility] Primary Care Physician: Mark [...] is seen in the [facility] of [facility] for migraines. Patient states she has suffered [...] mL 9 mL IntraDERmal Once Mariana Acuña, SURVEYING TECHNICIAN - SUDHAKAR lidocaine (Xylocaine) 1 % injection 9 mL 9 mL IntraDERmal Once Mariana Acuña, SURVEYING TECHNICIAN - SUDHAKAR lidocaine (Xylocaine) 1 % injection 9 mL 9 mL IntraDERmal Once Mariana Acuña, SURVEYING TECHNICIAN - DIRECTOR OF NURSING triamcinolone acetonide (more content not included)... [facility] Progress Note 10/31/2024 Trigger point injections Mariana Acuña DIRECTOR OF NURSING Lidocaine [facility] 7634-1320-83 Lot [id number] [address] [facility] 2674-9113-65 Lot [id number] 1 ml [facility] 29on 09-19-2024 29 Addended by: KAREN NGUYEN on: 09/19/2024 09:57 AM Modules accepted: Orders [facility] 29 Addended by: MARIANA ACUÑA on: 09/25/2024 07:08 AM Modules accepted: Orders [facility] Gastroenterology Visit Repor ton 09-19-2024 Gastroenterology Visit Report [facility] Gastroenterology [address] [place] [address] OFFICE VISIT Date of Service: 09/19/24 MR#: [id number] Acct: [id number] Name: MICHELLE CARLIN ANN Rep #: [id number] : 1980 Provider: Unruly Toscano DO Age/Sex: 44/F Location[place] [facility] Status: Signed Intake Vital Signs 06/06/20 14:05 [...] 4 mg PO QHS 05/16/24 09/19/24 History fkockjmdku-grdirjcrgdbtu-ngl feine 1 tab PO QHS Headache 06/12/24 [...] office today for follow up. *BGI established 05.16.24 for LLQ pain since . Pt reports [...] body habitus and well nourished Orientation: alert [facility] Head: normal to inspection Ears: hearing grossly [...] norm (more content not included)... Normal St. [facility] Progress Noteon 09-19-2024 Progress Note Administrations This Visit onabotulinumtoxin A (BOTOX) injection 200 Units Admin Date 01/28/25 Action Given Dose 200 Units Route IntraMUSCular Site Other Administered By CLEVELAND Lara CNP Ordering Provider: CLEVELAND Lara CNP [facility]: [id number] Lot#: [id number] Resolution Specialist: Allergan Patient Supplied?: No Normal [facility] Calprotectin, Stoolon [address] 16 ug/g Normal 0-120 [facility] Comment on above: Result Comment: Conc entration Interpretation Follow-Up < 5 - 50 ug/g Normal None >50 -120 ug/g Borderline Re-evaluate in 4-6 weeks >120 ug/g Abnormal Repeat as clinically indicated Performed at: [address] [id number] Head Up Operator Helper: Lius Barnett MD, Phone: [phone] Performed By: #### P SUIV #### [facility] [address] [place], [address] Giardia Lamblia, Stool EIAon 08-18-2024 Giardia Stool Negative Normal Negative [facility] Comment on above: Result Comment: Perf ormed at: [address] [id number] Head Up Operator Helper: Luis Barnett MD, Phone: [phone] Performed at: [facility] [address] [id number] Head Up Operator Helper: Thai James PhD, Phone: [phone] Performed By: #### P SUIV #### [facility] [address] [facility] [place], [address] L7000.0750on 08-18-2024 P ELASTASE,FECA 637 Normal >200 [facility] Comment on above: Result Comment: Resu lt Units: ug Elast./g Stool of watery consistency received. Since watery stool is inherently dilute, low test results should be interpreted with caution. Retesting on formed stool, if possible, is recommended. Severe Pancreatic Insufficiency: <100 Moderate Pancreatic Insufficiency: 100 - 200 Normal: >200 Performed By: #### P SUIV #### [facility] [address] [facility], [place], [address] Ova and Parasites 8623on OP OVA AND PARASITES EX AM, ROUTINE These results were obtained using wet preparation(s) and trichrome stained smear. This test does not include testing for Crytosporidium parvum, Cyclospora, or Microsporidia. One negative specimen does not rule out the possibility of a parasitic infection. _ [facility] ORIGINAL REPORT ON FILE IN LAB CONTAINS ADDITIONAL TEST SITE INFORMATION. _ Ova/Parasite Exam NO OVA, CYSTS, OR PARASITES FOUND. [facility] Comment on above: Performed By: #### P SUIV #### [facility] [address] [place], [address] 36on 08-17-2024 36 Name of Caller: Jodi sethi Contact Reason for Appointment: Pt is requesting to reschedule appointment on 08/31/24 at 11:30 due to change in work schedule. 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 difficile DNA EMA+probe Q l (Unsp spec)Ordered By: Jayla Dixon on 08-15-2024 Clostridioides difficile (PCR) [facility] CDIFF (PCR)on 08-15-2024 CDIFF Pending 027 027 NAP1-B1 Presumptive Negative *for epidemiolologic???use C. Diff PCR Negative- No toxigenic C. Diff Detected [facility] Comment on above: Performed By: #### P SUIV #### [facility] [address] [facility]. [place], [place], [id number] Calprotectin stoolOrdered By : Jayla Dixon on 08-15-2024 Stool Calprotectin 16 ug/g 0-120 [facility] Comment on above: Concentration Interp retation Follow-Up< 5 - 50 ug/g Normal None>50 -120 ug/g Borderline Re-evaluate in 4-6 weeks >120 ug/g Abnormal Repeat as clinically indicatedPerformed at: - Labco[address] [id number] Director: Luis Barnett MD, Phone: [phone] ENTERIC PATHOGEN PANEL STOOL on 08-15-2024 EP [...] Not Detected Yersinia Not Detected Normal [facility] Comment on above: Performed By: #### M 100.6796, M100.0605, L7400.3300, M600.5000, M100.637, L7000.0700, L7000.0750 ####[facility] [address] [facility] [place], [address] Elastase.pancreatic (Stl) [M ass/Mass]Ordered By: Jayla Dixon on 08-15-2024 Stool Pancreatic Elastase 637 >200 [facility] Comment on above: Result Units: ug Nelly st./gStool of watery consistency received. Since watery stool isinherently dilute, low test results should be interpretedwith caution. Retesting on formed stool, if possible, isrecommended. Severe Pancreatic Insufficiency: <100 Moderate Pancreatic Insufficiency: 100 - 200 Normal: >200 G. lamblia Ag IA Ql (Stl)Ord ered By: Jayla Dixon on 08-15-2024 Stool Giardia Antigen Negative Negative [facility] Comment on above: Performed at: - [address] [id number] Director: Luis Barnett MD, Phone: [phone] at: [facility] [address] [id number] Director: Thai James PhD, Phone: [phone] Lactoferrin IA Ql (Stl)Order ed By: Jayla Dixon on 08-15-[address] [facility] Ova and parasitesOrdered By: Jayla Dixon on 08-15-[address] [facility] Stool Lactoferrin/WBCon 07-24 WBCST Normal Reference Ran ge = Negative Fecal WBC Lactoferrin Negative: No Fecal WBC Lactoferrin present Normal [facility] Comment on above: Performed By: #### M 100.6796, M100.0605, L7400.3300, M600.5000, M100.637, L7000.0700, L7000.0750 ####[facility] [address] [place], [address] Stool enteric pathogen panel by probe and target amplification methodOrdered By: Jayla Dixon on 08-15-[address] [facility] 36on 06-30-2024 36 Noted Normal [facility] 36on 06-29-2024 36 S: Michelle from [facility] calling CAC d/t medication problem B: butalbital- acetaminophen- caffeine 50-325-40 mg tablet A: pharmacist calling stating received a controlled substance script that did not go through the controlled substance part of e script. States it does not list fouzia on script. Entire script with FUOZIA is in epic. R: Hung up with pharmacist and called [facility] to verify speaking with arsenio pharmacist and gave requested information/ verification of script. Pt advised to call back with worsening of symptoms, concern or questions. Pt verbalized understanding. Reason for Disposition ? Pharmacy calling with prescription question and triager answers question Protocols used: Medication Question Avek-MGDWM-JH Normal [facility] Progress Noteon 06-29-2024 Progress Note [facility] Primary Care Physician: Mark [...] is seen in the [facility]UROLOGY CLINIC of [facility] for migraines. Patient states she has suffered [...] tiZANidine (Zanaflex) (more content not included)... Normal [facility] 36on 06-26-2024 36 The patient has Stampsy Botox appt on 09/05/24. The Botox is approved under the patient's Medical Benefit and should be done as Buy and Bill. See Media tab for Approval letter. BOTOX IS BUY AND BILL!!! Medication: Botox # of Unit to be Administered: 200 Prior Authorization: Approved (medical benefit) PA reference #: [id number] Approval dates: 06/22/24-06/22/2025 Number of Units Approved: 800 units 4 treatments [facility] Gastric Emptying Studyon Gastric Emptying Study [facility] Imaging Services [address] [place] [id number] Gastric Emptying Study MR#: [id number] Acct: [id number] Name: MICHELLE CARLIN Rep #: [id number] : 1980 F 43 From: Willy Walker PCP: Dr. 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 Colonoscopy Reporton 024 Colonoscopy Report [facility] Medical Records Department [address] [place] [address] Colonoscopy Report MR#: [id number] Acct: [id number] Name: MICHELLE CARLIN Rep #: [id number] : 1980 43 From: Unruly Toscano DO PCP: Dr. Mark Shabazz MD Status:[facility] Patient Name: Michelle Carlin Procedure Date: 06/13/2024 [...] for surveillance. Procedure Code(s): --- Professional --- 97128, Colonoscopy, flexible; with biopsy, single or multiple CPT copyright 2021 [employer]. All rights reserved. The codes documented in this report are preliminary and upon supervisor newspaper deliveries review may be revised to meet current compliance requirements. Unruly Toscano DO 06/13/2024 3:45:22 PM This report has been signed electronically. Number of Addenda: 0 Note Initiated On: (more content not included)... Normal [facility] EGD Reporton 06-13-2024 EGD Report [facility] Medical Records Department [address] [place] [address] EGD Report MR#: [id number] Acct: [id number] Name: MICHELLE CARLIN Rep #: [id number] : 1980 43 From: Unruly Toscano DO PCP: Dr. Mark Shabazz MD Status:[facility] Patient Name: Michelle Carlin Procedure Date: 06/13/2024 [...] pathology results. Procedure Code(s): --- Professional --- 51992, Esophagogastroduodenoscopy, flexible, transoral; with biopsy, single or multiple CPT copyright 2021 [employer]. All rights reserved. The codes documented in this report are preliminary and upon supervisor newspaper deliveries review may be revised to meet current compliance requirements. Unruly Toscano DO 06/13/2024 3:40:18 PM This report has (more content not included)... [facility] MR/POSTOP.MOHAMUD 06-13-2024 MR/POSTOP.[facility] Medical Records Department [address] [place] [address] Anesthesia Postop Eval I 06/13/24 1544 MR#: [id number] Acct: [id number] Name: MICHELLE CARLIN ANN Rep #: [id number] : 1980 43 From: Triston Hill PCP: Dr. Mark Shabazz MD Status:REG SDC Y Race: C Location: [place] [address] Anesthesia: Postop Eval I Current Vital Signs [...] 1 completed: Yes 06/13/24 1545 Date Triston Schmitt Signature: Date CC: Signed [facility] MR/[id number] 06-13-2024 MR/POSTOPAN2 [facility] Medical Records Department [address] [place] [address] Anesthesia Postop Eval II 06/13/241716 MR#: [id number] Acct: [id number] Name: MICHELLE CARLIN Rep #: [id number] : 1980 43 From: Domingo Gupta MD PCP: Dr. Mark Shabazz MD Status:DEP [facility] Y Race: C Location: EN Anesthesia Postop [...] Date Domingo Amayaignclaudia Signature: Date CC: Signed Normal [facility] Special Stain Group Ion 05-24 Special Stain Group I -------- Patient Age/Sex Location Account Attending Physician -------- MICHELLE CARLIN 43/F EN [id number] Unruly Toscano DO -------- Specimen: [id number] Received: 06/13/24 Status: THOMAS Hardy Num: [id number] Spec Type: COLON BX Subm Dr: Unruly [...] Attending Physician -------- MICHELLE CARLIN 43/F EN [id number] Unruly Friend, DO -------- submitted in one cassette. C. [...] specimen is totally submitted in one cassette. SJ. 06/14/2024 TC:3 [facility]:[id number] -------- Patient Age/Sex Location Account Attending Physician -------- MICHELLE CARLIN 43/F EN [id number] Unruly Toscano, DO -------- Signed (signature on file) Dr. Michael Shields MD 06/15/24 1317 -------- Normal [facility] Comment on above: Performed By: #### P SSI ####[facility] [address] [place], [place], [phone] DOMI Comprehensive Panelon DOMI TABLE Comment Normal . [facility] Comment on above: Order Comment: FT4 T SARA-RASHARD BONILLA-OTHER TESTS-DESTINY Result Comment: Auto antibody Disease Association [...] Sm (anti-Velásquez) SLE 15 - 30% --------- PAPER CONE MACHINE TENDER Mixed Connective Tissue Disease 95% (U1 nRNP, SLE 30 - 50% anti-ribonucleoprotein) Polymyositis and/or Dermatomyositis 20% --------- Scl-70 (antiDNA Scleroderma (diffuse) 20 - 35% topoisomerase) Crest 13% --------- Livia-1 Polymyositis and/or Dermatomyositis 20 - 40% --------- Centromere B Scleroderma - Crest variant 80% Performed By: #### L 504.2610, L500.4050, L501.70032, L101.9900, L3100.3425, L501.9520, L3410.2400, L2100.0000, L506.0400, L501.6710, L5500.0550, L3100.5440, L3300.1200, L3200.1100 ####[facility] [address] [facility] [place], [address] ANTI-CENT B AB <0.2 Normal 0.0-0.9 [facility] Comment on above: Order Comment: FT4 T SH-RASHARD W/DESTINY-OTHER TESTS-DIXON Performed By: #### L 504.2610, L500.4050, L501.42264, L101.9900, L3100.3425, L501.9520, L3410.2400, L2100.0000, L506.0400, L501.6710, L5500.0550, L3100.5440, L3300.1200, L3200.1100 ####[facility] [address] [facility] [place], [address] ANTI-DNA (DS)AB 1 IU/mL Normal 0-9 [facility] Comment on above: Order Comment: FT4 T SH-RANOSCAR W/DIXON-OTHER TESTS-DIXON Result Comment: Nega tive <5 Equivocal 5 - 9 Positive >9 Performed By: #### L 504.2610, L500.4050, L501.65230, L101.9900, L3100.3425, L501.9520, L3410.2400, L2100.0000, L506.0400, L501.6710, L5500.0550, L3100.5440, L3300.1200, L3200.1100 ####[facility] [address] [place], [place], [phone](278) ANTI-LIVIA-1 <0.2 Normal 0.0-0.9 [facility] Comment on above: Order Comment: FT4 T SH-RANNEYDUPLICATE W/DIXON-OTHER TESTS-DIXON Performed By: #### L 504.2610, L500.4050, L501.47266, L101.9900, L3100.3425, L501.9520, L3410.2400, L2100.0000, L506.0400, L501.6710, L5500.0550, L3100.5440, L3300.1200, L3200.1100 ####[facility] [address] [place], [address] ANTI-SS-A < 0.2 Normal 0.0-0.9 [facility] Comment on above: Order Comment: FT4 T SH-RANNEYDUPLICATE W/DIXON-OTHER TESTS-DIXON Performed By: #### L 504.2610, L500.4050, L501.22640, L101.9900, L3100.3425, L501.9520, L3410.2400, L2100.0000, L506.0400, L501.6710, L5500.0550, L3100.5440, L3300.1200, L3200.1100 ####[facility] [address] [place], [place], [phone](787) ANTI-SS-B < 0.2 Normal 0.0-0.9 [facility] Comment on above: Order Comment: FT4 T SH-RANNEYDUPLICATE W/DIXON-OTHER TESTS-DIXON Performed By: #### L 504.2610, L500.4050, L501.95962, L101.9900, L3100.3425, L501.9520, L3410.2400, L2100.0000, L506.0400, L501.6710, L5500.0550, L3100.5440, L3300.1200, L3200.1100 ####[facility] [address] [place], [place], [phone] ANTICHROMATIN <0.2 Normal 0.0-0.9 [facility] Comment on above: Order Comment: FT4 T SH-RANNEYDUPLICATE W/DIXON-OTHER TESTS-DIXON Performed By: #### L 504.2610, L500.4050, L501.00538, L101.9900, L3100.3425, L501.9520, L3410.2400, L2100.0000, L506.0400, L501.6710, L5500.0550, L3100.5440, L3300.1200, L3200.1100 ####[facility] [address] [place], [place], [phone] ANTISCLERODERM <0.2 Normal 0.0-0.9 [facility] Comment on above: Order Comment: FT4 T SH-RANNEYDUPLICATE W/DIXON-OTHER TESTS-DIXON Performed By: #### L 504.2610, L500.4050, L501.24918, L101.9900, L3100.3425, L501.9520, L3410.2400, L2100.0000, L506.0400, L501.6710, L5500.0550, L3100.5440, L3300.1200, L3200.1100 ####[facility] [address] [place], [place], [phone] PAPER CONE MACHINE TENDER Ab 0.2 AI Normal 0.0-0.9 [facility] Comment on above: Order Comment: FT4 T SH-RANNEYDUPLICATE W/DIXON-OTHER TESTS-DIXON Performed By: #### L 504.2610, L500.4050, L501.71993, L101.9900, L3100.3425, L501.9520, L3410.2400, L2100.0000, L506.0400, L501.6710, L5500.0550, L3100.5440, L3300.1200, L3200.1100 ####[facility] [address] [place], [place], [phone] VELÁSQUEZ Ab <0.2 Normal 0.0-0.9 [facility] Comment on above: Order Comment: FT4 T SH-RANNEYDUPLICATE W/DIXON-OTHER TESTS-DIXON Performed By: #### L 504.2610, L500.4050, L501.10771, L101.9900, L3100.3425, L501.9520, L3410.2400, L2100.0000, L506.0400, L501.6710, L5500.0550, L3100.5440, L3300.1200, L3200.1100 ####[facility] [address] [place], [place], [phone] L5500.0550on 06-11-2024 BEEF 0.10 kU/L Abnormal Class 0/I [facility] Comment on above: Order Comment: FT4 T SH-RANNEYDUPLICATE W/DIXON-OTHER TESTS-DIXON Performed By: #### L 504.2610, L500.4050, L501.84125, L101.9900, L3100.3425, L501.9520, L3410.2400, L2100.0000, L506.0400, L501.6710, L5500.0550, L3100.5440, L3300.1200, L3200.1100 ####[facility] [address] [place], [place], [phone] CHOCOLATE <0.[address] [facility] Comment on above: Order Comment: FT4 T SH-RANNEYDUPLICATE W/DIXON-OTHER TESTS-DIXON Performed By: #### L 504.2610, L500.4050, L501.88190, L101.9900, L3100.3425, L501.9520, L3410.2400, L2100.0000, L506.0400, L501.6710, L5500.0550, L3100.5440, L3300.1200, L3200.1100 ####[facility] [address] [place], [place], [phone] CODFISH <0.[address] [facility] Comment on above: Order Comment: FT4 T -GAYPLICATE W/DIXON-OTHER TESTS-DIXON Performed By: #### L 504.2610, L500.4050, L501.76855, L101.9900, L3100.3425, L501.9520, L3410.2400, L2100.0000, L506.0400, L501.6710, L5500.0550, L3100.5440, L3300.1200, L3200.1100 ####[facility] [address] [place], [place], [phone] COMMENT Comment Normal . [facility] Comment on above: Order Comment: 4 T -GAYPLICATE W/DIXON-OTHER TESTS-DIXON Result Comment: Bryan rodriguez of Specific IgE Class Description of Class ----- < 0.10 0 Negative 0.10 - 0.31 0/I Equivocal/Low 0.32 - 0.55 I Low 0.56 - 1.40 II Moderate 1.41 - 3.90 III High 3.91 - 19.00 IV Very High 19.01 - 100.00 V Very High >100.00 Very High Performed By: #### L 504.2610, L500.4050, L501.68769, L101.9900, L3100.3425, L501.9520, L3410.2400, L2100.0000, L506.0400, L501.6710, L5500.0550, L3100.5440, L3300.1200, L3200.1100 ####[facility] [address] [place], [place], [phone] CORN <0.[address] [facility] Comment on above: Order Comment: FT4 T SH-RANNEYDUPLICATE W/DIXON-OTHER TESTS-DIXON Performed By: #### L 504.2610, L500.4050, L501.21904, L101.9900, L3100.3425, L501.9520, L3410.2400, L2100.0000, L506.0400, L501.6710, L5500.0550, L3100.5440, L3300.1200, L3200.1100 ####[facility] [address] [place], [place], [phone] EGG, WHOLE <0.[address] [facility] Comment on above: Order Comment: FT4 T SH-RANNEYDUPLICATE W/DIXON-OTHER TESTS-DIXON Performed By: #### L 504.2610, L500.4050, L501.21127, L101.9900, L3100.3425, L501.9520, L3410.2400, L2100.0000, L506.0400, L501.6710, L5500.0550, L3100.5440, L3300.1200, L3200.1100 ####[facility] [address] [place], [place], [phone] MILK (COW) <0.[address] [facility] Comment on above: Order Comment: FT4 T SH-RANNEYDUPLICATE W/DIXON-OTHER TESTS-DIXON Performed By: #### L 504.2610, L500.4050, L501.41215, L101.9900, L3100.3425, L501.9520, L3410.2400, L2100.0000, L506.0400, L501.6710, L5500.0550, L3100.5440, L3300.1200, L3200.1100 ####[facility] [address] [place], [place], [phone](289) MUSSELS <0.[address] [facility] Comment on above: Order Comment: 4 T -RANMICHELLEDUPLICATE W/DIXON-OTHER TESTS-DIXON Performed By: #### L 504.2610, L500.4050, L501.98540, L101.9900, L3100.3425, L501.9520, L3410.2400, L2100.0000, L506.0400, L501.6710, L5500.0550, L3100.5440, L3300.1200, L3200.1100 ####[facility] [address] [place], [place], [phone](263) PEANUT <0.[address] [facility] Comment on above: Order Comment: 4 T -RANMICHELLEDUPLICATE W/DIXON-OTHER TESTS-DIXON Performed By: #### L 504.2610, L500.4050, L501.91454, L101.9900, L3100.3425, L501.9520, L3410.2400, L2100.0000, L506.0400, L501.6710, L5500.0550, L3100.5440, L3300.1200, L3200.1100 ####[facility] [address] [place], [place], [phone](421) PORK <0.[address] [facility] Comment on above: Order Comment: [facility] T -ROOPAMICHELLEDUPLICATE W/DIXON-OTHER TESTS-DIXON Performed By: #### L 504.2610, L500.4050, L501.35671, L101.9900, L3100.3425, L501.9520, L3410.2400, L2100.0000, L506.0400, L501.6710, L5500.0550, L3100.5440, L3300.1200, L3200.1100 ####[facility] [address] [place], [place], [phone](957) SALMON <0.[address] Class [address] [facility] Comment on above: Order Comment: FT4 T SH-RANNEYDUPLICATE W/DIXON-OTHER TESTS-DIXON Performed By: #### L 504.2610, L500.4050, L501.70171, L101.9900, L3100.3425, L501.9520, L3410.2400, L2100.0000, L506.0400, L501.6710, L5500.0550, L3100.5440, L3300.1200, L3200.1100 ####[facility] [address] [place], [place], [phone] SHRIMP <0.[address] [facility] Comment on above: Order Comment: FT4 T SH-RANNEYDUPLICATE W/DIXON-OTHER TESTS-DIXON Performed By: #### L 504.2610, L500.4050, L501.68562, L101.9900, L3100.3425, L501.9520, L3410.2400, L2100.0000, L506.0400, L501.6710, L5500.0550, L3100.5440, L3300.1200, L3200.1100 ####[facility] [address] [place], [address] SOYBEAN <0.[address] [facility] Comment on above: Order Comment: FT4 T SH-RANNEYDUPLICATE W/DIXON-OTHER TESTS-DIXON Performed By: #### L 504.2610, L500.4050, L501.28469, L101.9900, L3100.3425, L501.9520, L3410.2400, L2100.0000, L506.0400, L501.6710, L5500.0550, L3100.5440, L3300.1200, L3200.1100 ####[facility] [address] [place], [place], [phone] TUNA <0.[address] [facility] Comment on above: Order Comment: FT4 T SH-RANNEYDUPLICATE W/DIXON-OTHER TESTS-DIXON Performed By: #### L 504.2610, L500.4050, L501.92103, L101.9900, L3100.3425, L501.9520, L3410.2400, L2100.0000, L506.0400, L501.6710, L5500.0550, L3100.5440, L3300.1200, L3200.1100 ####[facility] [address] [place], [place], [address] WHEAT <0.[address] Class [address] [facility] Comment on above: Order Comment: FT4 T SH-HARIKADUPLICATE W/DIXON-OTHER TESTS-DIXON Performed By: #### L 504.2610, L500.4050, L501.13091, L101.9900, L3100.3425, L501.9520, L3410.2400, L2100.0000, L506.0400, L501.6710, L5500.0550, L3100.5440, L3300.1200, L3200.1100 ####[facility] [id number] [facility]. [place], [place], [id number] ANCAon 06-08-2024 Atypical pANCA <1:20 Normal Neg:<1:20 [facility] Comment on above: Order Comment: FT4 T SH-RANNEYDUPLICATE W/DIXON-OTHER TESTS-EVANSNUNK Result Comment: The atypical pANCA pattern has been observed in a significant percentage of patients with ulcerative colitis, primary sclerosing cholangitis and autoimmune hepatitis. Performed at: [address] [id number] Head Up Operator Helper: Thai James PhD, Phone: [phone] Performed at: [address] [id number] Head Up Operator Helper: Luis Barnett MD, Phone: [phone] Performed By: #### L 504.2610, L500.4050, L501.45352, L101.9900, L3100.3425, L501.9520, L3410.2400, L2100.0000, L506.0400, L501.6710, L5500.0550, L3100.5440, L3300.1200, L3200.1100 ####[facility] [id number] [place], [place], [id number] Cytoplasmic Ab <1:20 Normal Neg:<1:20 [facility] Comment on above: Order Comment: FT4 T SH-RANNEYDUPLICATE W/DIXON-OTHER TESTS-EVANSNUNK Performed By: #### L 504.2610, L500.4050, L501.37959, L101.9900, L3100.3425, L501.9520, L3410.2400, L2100.0000, L506.0400, L501.6710, L5500.0550, L3100.5440, L3300.1200, L3200.1100 ####[facility] [id number] [address] [place], [place], [id number] Perinuclear Ab. <1:20 Normal Neg:<1:20 [facility] Comment on above: Order Comment: FT4 T SH-RANNEYDUPLICATE W/DIXON-OTHER TESTS-EVANSNUNK Result Comment: The presence of positive fluorescence exhibiting P-ANCA or C-ANCA patterns alone is not specific for the diagnosis of Giulia's Granulomatosis (WG) or microscopic polyangiitis. Decisions about treatment should not be based solely on ANCA IFA results. The International ANCA [employer] Consensus recommends follow up testing of positive sera with both NV- 3 and MPO-ANCA enzyme immunoassays. As many as 5% serum samples are positive only by EIA. Ref. AM J Clin Pathol 1999;111:507-513. Performed By: #### L 504.2610, L500.4050, L501.20162, L101.9900, L3100.3425, L501.9520, L3410.2400, L2100.0000, L506.0400, L501.6710, L5500.0550, L3100.5440, L3300.1200, L3200.1100 ####[facility] [address] [place], [place], [phone] Celiac Disease Profileon ENDOMYSIAL IGA Negative Normal Negative [facility] Comment on above: Order Comment: FT4 T SH-RANNEYDUPLICATE W/DIXON-OTHER TESTS-EVANSNUNK Performed By: #### L 504.2610, L500.4050, L501.12926, L101.9900, L3100.3425, L501.9520, L3410.2400, L2100.0000, L506.0400, L501.6710, L5500.0550, L3100.5440, L3300.1200, L3200.1100 ####[facility] [address] [place], [place], [phone] tTG IGA <2 Normal 0-3 [facility] Comment on above: Order Comment: FT4 T SH-RANNEYDUPLICATE W/DIXON-OTHER TESTS-EVANSNUNK Result Comment: Nega tive 0 - 3 Weak Positive 4 - 10 Positive >10 Tissue Transglutaminase (tTG) has been identified as the endomysial antigen. Studies have demonstr- ated that endomysial IgA antibodies have over 99% specificity for gluten sensitive enteropathy. Performed By: #### L 504.2610, L500.4050, L501.22966, L101.9900, L3100.3425, L501.9520, L3410.2400, L2100.0000, L506.0400, L501.6710, L5500.0550, L3100.5440, L3300.1200, L3200.1100 ####[facility] [address] [place], [place], [phone] PEGGY + Protein Elect, Serumon 06-08-2024 Albumin [Mass/Vol] 3.8 g/dL Normal 2.9-4.4 [facility] Comment on above: Order Comment: FT4 T SH-RANNEYDUPLICATE W/DIXON-OTHER TESTS-EVANSNUNK Performed By: #### L 504.2610, L500.4050, L501.01347, L101.9900, L3100.3425, L501.9520, L3410.2400, L2100.0000, L506.0400, L501.6710, L5500.0550, L3100.5440, L3300.1200, L3200.1100 ####[facility] [address] [place], [place], [phone] Albumin/Globulin [Mass ratio] 1.5 {ratio} Normal 0.7-1.7 [facility] Comment on above: Order Comment: FT4 T SH-RANNEYDUPLICATE W/DIXON-OTHER TESTS-EVANSNUNK Performed By: #### L 504.2610, L500.4050, L501.51948, L101.9900, L3100.3425, L501.9520, L3410.2400, L2100.0000, L506.0400, L501.6710, L5500.0550, L3100.5440, L3300.1200, L3200.1100 ####[facility] [address] [place], [address] JAZRE-0-WYUN 0.2 g/dL Normal 0.0-0.4 [facility] Comment on above: Order Comment: FT4 T SH-RANNEYDUPLICATE W/DIXON-OTHER TESTS-EVANSNUNK Performed By: #### L 504.2610, L500.4050, L501.63723, L101.9900, L3100.3425, L501.9520, L3410.2400, L2100.0000, L506.0400, L501.6710, L5500.0550, L3100.5440, L3300.1200, L3200.1100 ####[facility] [address] [place], [address] NTDYA-7-BDVR 0.6 g/dL Normal 0.4-1.0 [facility] Comment on above: Order Comment: FT4 T SH-RANNEYDUPLICATE W/DIXON-OTHER TESTS-EVANSNUNK Performed By: #### L 504.2610, L500.4050, L501.77420, L101.9900, L3100.3425, L501.9520, L3410.2400, L2100.0000, L506.0400, L501.6710, L5500.0550, L3100.5440, L3300.1200, L3200.1100 ####[facility] [address] [place], [place], [phone] BETA GLOBULIN 0.9 g/dL Normal 0.7-1.3 [facility] Comment on above: Order Comment: FT4 T SH-RANNEYDUPLICATE W/DIXON-OTHER TESTS-EVANSNUNK Performed By: #### L 504.2610, L500.4050, L501.83192, L101.9900, L3100.3425, L501.9520, L3410.2400, L2100.0000, L506.0400, L501.6710, L5500.0550, L3100.5440, L3300.1200, L3200.1100 ####[facility] [address] [place], [place], [phone] GAMMA GLOBULIN 1.0 g/dL Normal 0.4-1.8 [facility] Comment on above: Order Comment: FT4 T SH-RANNEYDUPLICATE W/DIXON-OTHER TESTS-EVANSNUNK Performed By: #### L 504.2610, L500.4050, L501.44571, L101.9900, L3100.3425, L501.9520, L3410.2400, L2100.0000, L506.0400, L501.6710, L5500.0550, L3100.5440, L3300.1200, L3200.1100 ####[facility] [address] [place], [place], [phone] Globulin (S) [Mass/Vol] 2.7 g/dL Normal 2.2-3.9 [facility] Comment on above: Order Comment: FT4 T SH-RANNEYDUPLICATE W/DIXON-OTHER TESTS-EVANSNUNK Performed By: #### L 504.2610, L500.4050, L501.90092, L101.9900, L3100.3425, L501.9520, L3410.2400, L2100.0000, L506.0400, L501.6710, L5500.0550, L3100.5440, L3300.1200, L3200.1100 ####[facility] [address] [place], [address] PEGGY RESULT,S Comment Normal . [facility] Comment on above: Order Comment: FT4 T SH-RANNEYDUPLICATE W/DIXON-OTHER TESTS-EVANSNUNK Result Comment: No m onoclonality detected. Performed By: #### L 504.2610, L500.4050, L501.96020, L101.9900, L3100.3425, L501.9520, L3410.2400, L2100.0000, L506.0400, L501.6710, L5500.0550, L3100.5440, L3300.1200, L3200.1100 ####[facility] [address] [place], [place], [phone] IMMUNOGLOB A QN 247 mg/dL Normal 87-352 [facility] Comment on above: Order Comment: FT4 T SH-RANNEYDUPLICATE W/DIXON-OTHER TESTS-EVANSNUNK Performed By: #### L 504.2610, L500.4050, L501.75304, L101.9900, L3100.3425, L501.9520, L3410.2400, L2100.0000, L506.0400, L501.6710, L5500.0550, L3100.5440, L3300.1200, L3200.1100 ####[facility] [address] [place], [place], [phone] IMMUNOGLOB G QN 1239 mg/dL Normal 586-1602 [facility] Comment on above: Order Comment: FT4 T SH-RANNEYDUPLICATE W/DIXON-OTHER TESTS-EVANSNUNK Performed By: #### L 504.2610, L500.4050, L501.62324, L101.9900, L3100.3425, L501.9520, L3410.2400, L2100.0000, L506.0400, L501.6710, L5500.0550, L3100.5440, L3300.1200, L3200.1100 ####[facility] [address] [place], [place], [phone] IMMUNOGLOB M QN 138 mg/dL Normal 26-217 [facility] Comment on above: Order Comment: FT4 T SH-RANNEYDUPLICATE W/DIXON-OTHER TESTS-EVANSNUNK Performed By: #### L 504.2610, L500.4050, L501.15578, L101.9900, L3100.3425, L501.9520, L3410.2400, L2100.0000, L506.0400, L501.6710, L5500.0550, L3100.5440, L3300.1200, L3200.1100 ####[facility] [address] [place], [address] M-Leandro Not Observed Normal Not Observed [facility] Comment on above: Order Comment: FT4 T SH-RANNEYDUPLICATE W/DIXON-OTHER TESTS-EVANSNUNK Performed By: #### L 504.2610, L500.4050, L501.98454, L101.9900, L3100.3425, L501.9520, L3410.2400, L2100.0000, L506.0400, L501.6710, L5500.0550, L3100.5440, L3300.1200, L3200.1100 ####[facility] [address] [place], [place], [phone] NOTE: Comment Normal . [facility] Comment on above: Order Comment: FT4 T SH-RANNEYDUPLICATE W/DIXON-OTHER TESTS-EVANSNUNK Result Comment: Prot ein electrophoresis scan will follow via computer, mail, or delicatessen goods stock clerk delivery. Performed By: #### L 504.2610, L500.4050, L501.01136, L101.9900, L3100.3425, L501.9520, L3410.2400, L2100.0000, L506.0400, L501.6710, L5500.0550, L3100.5440, L3300.1200, L3200.1100 ####[facility] [address] [place], [place], [phone] Protein [Mass/Vol] 6.5 g/dL Normal 6.0-8.5 [facility] Comment on above: Order Comment: FT4 T SH-RANNEYDUPLICATE W/DIXON-OTHER TESTS-EVANSNUNK Performed By: #### L 504.2610, L500.4050, L501.47831, L101.9900, L3100.3425, L501.9520, L3410.2400, L2100.0000, L506.0400, L501.6710, L5500.0550, L3100.5440, L3300.1200, L3200.1100 ####[facility] [address] [place], [place], [phone] Immunoglobulins G/A/M/Uli IMMUNOGLOB E QN 32 IU/mL Normal 6-495 [facility] Comment on above: Order Comment: FT4 T SH-RANNEYDUPLICATE W/DIXON-OTHER TESTS-EVANSNUNK Performed By: #### L 504.2610, L500.4050, L501.04399, L101.9900, L3100.3425, L501.9520, L3410.2400, L2100.0000, L506.0400, L501.6710, L5500.0550, L3100.5440, L3300.1200, L3200.1100 ####[facility] [address] [place], [place], [phone]) L2100.0000on 06-08-2024 ACCA 46 units Normal 0-90 [facility] Comment on above: Order Comment: FT4 T SH-RANNEYDUPLICATE W/DIXON-OTHER TESTS-EVANSNUNK Result Comment: Nega tive: <80 Equivocal: 80-90 Positive: >90 Performed By: #### L 504.2610, L500.4050, L501.03235, L101.9900, L3100.3425, L501.9520, L3410.2400, L2100.0000, L506.0400, L501.6710, L5500.0550, L3100.5440, L3300.1200, L3200.1100 ####[facility] [address] [place], [place], [phone] ALCA 73 units Abnormal 0-60 [facility] Comment on above: Order Comment: FT4 T -RANNEYDUPLICATE W/DIXON-OTHER TESTS-EVANSNUNK Result Comment: Nega tive:<55 Equivocal: 55-60 Positive: >60 Performed By: #### L 504.2610, L500.4050, L501.96942, L101.9900, L3100.3425, L501.9520, L3410.2400, L2100.0000, L506.0400, L501.6710, L5500.0550, L3100.5440, L3300.1200, L3200.1100 ####[facility] [address] [place], [address] AMCA 108 units High 0-100 [facility] Comment on above: Order Comment: -RANNEYDUPLICATE W/DIXON-OTHER TESTS-EVANSNUNK Result Comment: Nega tive: <90 Equivocal: 90-100 Positive: >100 This test was developed and its performance characteristics determined by [employer]. It has not been cleared or approved by the Food and Drug Administration. The FDA has determined that such clearance or approval is not necessary. Performed By: #### L 504.2610, L500.4050, L501.75488, L101.9900, L3100.3425, L501.9520, L3410.2400, L2100.0000, L506.0400, L501.6710, L5500.0550, L3100.5440, L3300.1200, L3200.1100 ####[facility] [address] [place], [place], [phone] Atypical pANCA Negative Normal Negative [facility] Comment on above: Order Comment: FT4 T SH-RANNEYDUPLICATE W/DIXON-OTHER TESTS-EVANSNUNK Performed By: #### L 504.2610, L500.4050, L501.70589, L101.9900, L3100.3425, L501.9520, L3410.2400, L2100.0000, L506.0400, L501.6710, L5500.0550, L3100.5440, L3300.1200, L3200.1100 ####[facility] [address] [place], [place], [phone] COMMENT Comment Abnormal . [facility] Comment on above: Order Comment: FT4 T SH-RANNEYDUPLICATE W/DIXON-OTHER TESTS-EVANSNUNK Result Comment: Sugg estive of Crohn's Disease with the very high risk of aggressive disease behavior (development of strictures or fistulae) Performed By: #### L 504.2610, L500.4050, L501.26936, L101.9900, L3100.3425, L501.9520, L3410.2400, L2100.0000, L506.0400, L501.6710, L5500.0550, L3100.5440, L3300.1200, L3200.1100 ####[facility] [address] [place], [place], [phone] Sumit 84 units Abnormal 0-50 [facility] Comment on above: Order Comment: FT4 T SH-RANNEYDUPLICATE W/DIXON-OTHER TESTS-EVANSNUNK Result Comment: Nega tive: <45 Equivocal: 45-50 Positive: >50 Performed By: #### L 504.2610, L500.4050, L501.41080, L101.9900, L3100.3425, L501.9520, L3410.2400, L2100.0000, L506.0400, L501.6710, L5500.0550, L3100.5440, L3300.1200, L3200.1100 ####[facility] [address] [place], [address] Abdomen/Pelvis WITH Contrast on 06-06-2024 Abdomen/Pelvis WITH Contrast [facility] Imaging Services [address] [place] [address] Abdomen/Pelvis WITH Contrast MR#: [id number] Acct: [id number] Name: MICHELLE CARLIN Rep #: [id number] : 1980 F 43 From: Jose E Langston MD PCP: Dr. Mark Shabazz MD Status: REG CLI Study: Abdomen/Pelvis WITH Contrast Date of Exam: Exam# [id number] Ordering Dr: Jayla Dixon NP-C ADDENDUM by Dr. Victor Manuel Calixto MD on 06/26/24 at 0902 ADDENDUM :[id number] No significant compression of the duodenum from the SMA and aorta. No findings to suggest SMA syndrome. Electronically Signed: Victor Manuel Calixto MD at 9:02 EST , 06/26/24 09 Date cc: GRAHAM Dixon; Dr. Mark Shabazz MD * Signed ADDENDUM by Dr. Victor Manuel Calixto MD on 06/26/[address]/Abdomen/Pelvis WITH Contrast IMPRESSION: undefined 06/26/24 0909 Date cc: GRAHAM Dixon; Dr. Mark Shabazz MD * Signed :[id number] EXAM: CT ABDOMEN AND PELVIS WITH INTRAVENOUS [...] CC: GRAHAM Dixon; Dr. 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 ABD Limited w/ Elastographyo n 06-05-2024 ABD Limited w/ Elastography [facility] Imaging Services [address] [place] [address] ABD Limited w/ Elastography MR#: [id number] Acct: [id number] Name: MICHELLE CARLIN Rep #: [id number] : 1980 F 43 From: Willy Funk MD PCP: Dr. 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 Willy Funk MD on 06/13/24 at 0823 ADDENDUM :[id number] Multiple gallstones within gallbladder consistent with cholelithiasis. No biliary ductal dilatation. Electronically Signed: Willy Funk MD at 8:23 EDT , 06/13/24822 Date cc: GRAHAM Dixon; Dr. Mark Shabazz MD * Signed ADDENDUM by Dr. Willy Funk MD on 06/13/24 at 0823 US/ABD Limited w/ Elastography IMPRESSION: undefined 10/22/24 0829 Date cc: GRAHAM Dixon; Dr. Mark Shabazz MD * Signed :[id number] STUDY: ABDOMINAL ULTRASOUND - ELASTOGRAPHY REASON FOR VISIT: Female, 43 years old. Abdominal pain TECHNIQUE: Liver stiffness measurements were obtained on a GrabCAD RS 85 ultrasound machine using a CA [...] CC: GRAHAM Dixon; Dr. 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 CBC, Employeeon 06-05-2024 Absolute Lymph 1.85 X10 3/uL Normal 0.83-4.51 [facility] Comment on above: Order Comment: CBC-D UP W/EMP LABS-STILL NEED DIFF DONE Performed By: #### P SUIV #### [facility] [address] [place], [place], [phone] Absolute Neut 2.4 X10 3/uL Normal 2.0-7.7 [facility] Comment on above: Order Comment: CBC-D UP W/EMP LABS-STILL NEED DIFF DONE Performed By: #### P SUIV #### [facility] [address] [place], [address] Basophils/100 WBC (Bld) 0.4 % Normal 0-1 [facility] Comment on above: Order Comment: CBC-D UP W/EMP LABS-STILL NEED DIFF DONE Performed By: #### P SUIV #### [facility] [address] [place], [address] Eosinophils/100 WBC (Bld) 1.1 % Normal 0-5 [facility] Comment on above: Order Comment: CBC-D UP W/EMP LABS-STILL NEED DIFF DONE Performed By: #### P SUIV #### [facility] [address] [place], [address] Erythrocyte distribution width (RBC) [Ratio] 11.9 % Normal 11.6-14.6 [facility] Comment on above: Order Comment: CBC-D UP W/EMP LABS-STILL NEED DIFF DONE Performed By: #### P SUIV #### [facility] [address] [place], [address] Hematocrit (Bld) [Volume fraction] 43.8 % Normal 37-47 [facility] Comment on above: Order Comment: CBC-D UP W/EMP LABS-STILL NEED DIFF DONE Performed By: #### P SUIV #### [facility] [address] [place], [address] Hemoglobin (Bld) [Mass/Vol] 13.9 g/dL Normal 12.0-15.0 [facility] Comment on above: Order Comment: CBC-D UP W/EMP LABS-STILL NEED DIFF DONE Performed By: #### P SUIV #### [facility] [address] [place], [address] Lymphocytes/100 WBC (Bld) 40.2 % Normal 19-41 [facility] Comment on above: Order Comment: CBC-D UP W/EMP LABS-STILL NEED DIFF DONE Performed By: #### P SUIV #### [facility] [address] [place], [address] MCH (RBC) [Entitic mass] 28.4 pg Normal 27.0-32.0 [facility] Comment on above: Order Comment: CBC-D UP W/EMP LABS-STILL NEED DIFF DONE Performed By: #### P SUIV #### [facility] [address] [place], [address] MCHC (RBC) [Mass/Vol] 31.7 g/dL Low 32-36 [facility] Comment on above: Order Comment: CBC-D UP W/EMP LABS-STILL NEED DIFF DONE Performed By: #### P SUIV #### [facility] [address] [place], [address] MCV (RBC) [Entitic vol] 89.4 fL Normal 81-99 [facility] Comment on above: Order Comment: CBC-D UP W/EMP LABS-STILL NEED DIFF DONE Performed By: #### P SUIV #### [facility] [address] [place], [address] Monocytes/100 WBC (Bld) 5.7 % Normal 0-10 [facility] Comment on above: Order Comment: CBC-D UP W/EMP LABS-STILL NEED DIFF DONE Performed By: #### P SUIV #### [facility] [address] [place], [address] Neutrophils/100 WBC (Bld) 52.4 % Normal 47-70 [facility] Comment on above: Order Comment: CBC-D UP W/EMP LABS-STILL NEED DIFF DONE Performed By: #### P SUIV #### [facility] [address] [place], [address] NRBC # 0.00 10 3/uL Normal 0-5 [facility] Comment on above: Order Comment: CBC-D UP W/EMP LABS-STILL NEED DIFF DONE Performed By: #### P SUIV #### [facility] [address] [place], [address] Nucleated RBC (Bld) [#/Vol] 0 10*3/uL Normal 0-5 [facility] Comment on above: Order Comment: CBC-D UP W/EMP LABS-STILL NEED DIFF DONE Performed By: #### P SUIV #### [facility] [address] [place], [address] Platelet mean volume (Bld) [Entitic vol] 11.2 fL Normal 6.2-12.0 [facility] Comment on above: Order Comment: CBC-D UP W/EMP LABS-STILL NEED DIFF DONE Performed By: #### P SUIV #### [facility] [address] [place], [address] Platelets (Bld) [#/Vol] 229 10*3/uL Normal 150-450 [facility] Comment on above: Order Comment: CBC-D UP W/EMP LABS-STILL NEED DIFF DONE Performed By: #### P SUIV #### [facility] [address] [place], [address] RBC (Bld) [#/Vol] 4.90 10*6/uL Normal 4.2-5.4 [facility] Comment on above: Order Comment: CBC-D UP W/EMP LABS-STILL NEED DIFF DONE Performed By: #### P SUIV #### [facility] [address] [place], [address] RDW SD 38.6 fl Normal 35.1-43.9 [facility] Comment on above: Order Comment: CBC-D UP W/EMP LABS-STILL NEED DIFF DONE Performed By: #### P SUIV #### [facility] [address] [place], [address] WBC (Bld) [#/Vol] 4.6 10*3/uL Normal 4.4-11.0 [facility] Comment on above: Order Comment: CBC-D UP W/EMP LABS-STILL NEED DIFF DONE Performed By: #### P SUIV #### [facility] [address] [place], [place], [id number] CRPon 06-05-2024 C-REACTIVE PROT 3.21 mg/L High 0.0-3.0 [facility] Comment on above: Order Comment: FT4 T SH-RANNEYDUPLICATE W/DIXON-OTHER TESTS-1 Result Comment: C-Re active Protein (CRP) provides useful information for the diagnosis, therapy and monitoring of inflammatory processes and associated diseases. For the evaluation of Relative Risk for Cardiovascular Disease, a High Sensitivity CRP (HSCRP) should be ordered. Performed By: #### L 504.2610, L500.4050, L501.90298, L101.9900, L3100.3425, L501.9520, L3410.2400, L2100.0000, L506.0400, L501.6710, L5500.0550, L3100.5440, L3300.1200, L3200.1100 ####[facility] [address] [place], [place], [phone] Comprehensive Metabolic Prof ilon 06-05-2024 Albumin [Mass/Vol] 3.9 g/dL Normal 3.2-5.0 [facility] Comment on above: Order Comment: FT4 T SH-RANNEYDUPLICATE W/DIXON-OTHER TESTS-EVANS1 Performed By: #### L 504.2610, L500.4050, L501.85292, L101.9900, L3100.3425, L501.9520, L3410.2400, L2100.0000, L506.0400, L501.6710, L5500.0550, L3100.5440, L3300.1200, L3200.1100 ####[facility] [address] [place], [place], [phone] Albumin/Globulin [Mass ratio] 1.0 {ratio} Normal 0.9-2.4 [facility] Comment on above: Order Comment: FT4 T SH-HARIKADUPLICATE W/DIXON-OTHER TESTS-EVANSUNK1 Performed By: #### L 504.2610, L500.4050, L501.21683, L101.9900, L3100.3425, L501.9520, L3410.2400, L2100.0000, L506.0400, L501.6710, L5500.0550, L3100.5440, L3300.1200, L3200.1100 ####[facility] [address] [place], [place], [phone] ALK P 71 U/L Normal 45-117 [facility] Comment on above: Order Comment: 4 T SH-RANMICHELLEDUPLICATE W/DIXON-OTHER TESTS-EVANSUNK1 Performed By: #### L 504.2610, L500.4050, L501.25063, L101.9900, L3100.3425, L501.9520, L3410.2400, L2100.0000, L506.0400, L501.6710, L5500.0550, L3100.5440, L3300.1200, L3200.1100 ####[facility] [address] [place], [place], [phone] ALT [Catalytic activity/Vol] 25 U/L Normal 13-56 [facility] Comment on above: Order Comment: 4 T SH-RANMICHELLEDUPLICATE W/DIXON-OTHER TESTS-EVANSUNK1 Performed By: #### L 504.2610, L500.4050, L501.67568, L101.9900, L3100.3425, L501.9520, L3410.2400, L2100.0000, L506.0400, L501.6710, L5500.0550, L3100.5440, L3300.1200, L3200.1100 ####[facility] [address] [place], [place], [phone] AST [Catalytic activity/Vol] 19 U/L Normal 15-37 [facility] Comment on above: Order Comment: 4 T SH-RANNEYDUPLICATE W/DIXON-OTHER TESTS-EVANSUNK1 Performed By: #### L 504.2610, L500.4050, L501.03960, L101.9900, L3100.3425, L501.9520, L3410.2400, L2100.0000, L506.0400, L501.6710, L5500.0550, L3100.5440, L3300.1200, L3200.1100 ####[facility] [address] [place], [place], [phone]) Bilirubin [Mass/Vol] 0.30 mg/dL Normal 0.20-1.00 [facility] Comment on above: Order Comment: FT4 T -RANMICHELLEDUPLICATE W/DIXON-OTHER TESTS-EVANSUNK1 Result Comment: For patients on eltrombopag therapy, use of Dimension Lagrange TBIL is not recommended. Performed By: #### L 504.2610, L500.4050, L501.31688, L101.9900, L3100.3425, L501.9520, L3410.2400, L2100.0000, L506.0400, L501.6710, L5500.0550, L3100.5440, L3300.1200, L3200.1100 ####[facility] [address] [place], [place], [phone]) BUN/CRE 12.9 RATIO Normal 10-20 [facility] Comment on above: Order Comment: 4 T -RANMICHELLEDUPLICATE W/DIXON-OTHER TESTS-EVANSUNK1 Performed By: #### L 504.2610, L500.4050, L501.33184, L101.9900, L3100.3425, L501.9520, L3410.2400, L2100.0000, L506.0400, L501.6710, L5500.0550, L3100.5440, L3300.1200, L3200.1100 ####[facility] [address] [place], [place], [phone](660) CA,Total 9.4 mg/dL Normal 8.5-10.1 [facility] Comment on above: Order Comment: 4 T -RANMICHELLEDUPLICATE W/DIXON-OTHER TESTS-EVANSUNK1 Performed By: #### L 504.2610, L500.4050, L501.93356, L101.9900, L3100.3425, L501.9520, L3410.2400, L2100.0000, L506.0400, L501.6710, L5500.0550, L3100.5440, L3300.1200, L3200.1100 ####[facility] [address] [place], [place], [phone]) Chloride [Moles/Vol] 103 mmol/L Normal 98-107 [facility] Comment on above: Order Comment: 4 [facility] [place]-HARIKADUPLICATE W/DIXON-OTHER TESTS-EVANSUNK1 Performed By: #### L 504.2610, L500.4050, L501.20202, L101.9900, L3100.3425, L501.9520, L3410.2400, L2100.0000, L506.0400, L501.6710, L5500.0550, L3100.5440, L3300.1200, L3200.1100 ####[facility] [address] [place], [place], [phone] CO2 [Moles/Vol] 29.0 mmol/L Normal 21.0-32.0 [facility] Comment on above: Order Comment: [address]-HARIKADUPLICATE W/DIXON-OTHER TESTS-EVANSUNK1 Performed By: #### L 504.2610, L500.4050, L501.38288, L101.9900, L3100.3425, L501.9520, L3410.2400, L2100.0000, L506.0400, L501.6710, L5500.0550, L3100.5440, L3300.1200, L3200.1100 ####[facility] [address] [place], [place], [phone] Creatinine [Mass/Vol] 0.70 mg/dL Normal 0.55-1.02 [facility] Comment on above: Order Comment: FT4 T SH-RANNEYDUPLICATE W/DIXON-OTHER TESTS-EVANSUNK1 Result Comment: The validity of the calculated GFR GFRAA in patients over 70 years has not been determined. Clinical correlation is essential. Performed By: #### L 504.2610, L500.4050, L501.75669, L101.9900, L3100.3425, L501.9520, L3410.2400, L2100.0000, L506.0400, L501.6710, L5500.0550, L3100.5440, L3300.1200, L3200.1100 ####[facility] [address] [place], [place], [phone] EST GFR - AA 118 mL/min Normal >60 [facility] Comment on above: Order Comment: FT4 T SH-RANNEYDUPLICATE W/DIXON-OTHER TESTS-EVANSUNK1 Result Comment: Afri can Uzbek GFR Calc Performed By: #### L 504.2610, L500.4050, L501.69584, L101.9900, L3100.3425, L501.9520, L3410.2400, L2100.0000, L506.0400, L501.6710, L5500.0550, L3100.5440, L3300.1200, L3200.1100 ####[facility] [address] [place], [place], [phone] GAP 7 Normal 5-15 [facility] Comment on above: Order Comment: FT4 T SH-NEYDUPLICATE W/DIXON-OTHER TESTS-EVANSUNK1 Performed By: #### L 504.2610, L500.4050, L501.52976, L101.9900, L3100.3425, L501.9520, L3410.2400, L2100.0000, L506.0400, L501.6710, L5500.0550, L3100.5440, L3300.1200, L3200.1100 ####[facility] [address] [place], [place], [phone] GFR/1.73 sq M.predicted among non-blacks MDRD (S/P/Bld) [Vol rate/Area] 98 mL/min/{1.73_m2} Normal >60 [facility] Comment on above: Order Comment: FT4 T SH-RANNEYDUPLICATE W/DIXON-OTHER TESTS-EVANSUNK1 Result Comment: Non- GFR Calc Performed By: #### L 504.2610, L500.4050, L501.11611, L101.9900, L3100.3425, L501.9520, L3410.2400, L2100.0000, L506.0400, L501.6710, L5500.0550, L3100.5440, L3300.1200, L3200.1100 ####[facility] [address] [place], [place], [phone] Globulin (S) [Mass/Vol] 4.1 g/dL Normal 2.2-4.2 [facility] Comment on above: Order Comment: FT4 T SH-RANNEYDUPLICATE W/DIXON-OTHER TESTS-EVANSUNK1 Performed By: #### L 504.2610, L500.4050, L501.65547, L101.9900, L3100.3425, L501.9520, L3410.2400, L2100.0000, L506.0400, L501.6710, L5500.0550, L3100.5440, L3300.1200, L3200.1100 ####[facility] [address] [place], [place], [phone] Glucose [Mass/Vol] 86 mg/dL Normal 74-106 [facility] Comment on above: Order Comment: FT4 T SH-RANNEYDUPLICATE W/DIXON-OTHER TESTS-EVANSUNK1 Performed By: #### L 504.2610, L500.4050, L501.09366, L101.9900, L3100.3425, L501.9520, L3410.2400, L2100.0000, L506.0400, L501.6710, L5500.0550, L3100.5440, L3300.1200, L3200.1100 ####[facility] [address] [place], [address] Potassium [Moles/Vol] 4.2 mmol/L Normal 3.5-5.1 [facility] Comment on above: Order Comment: FT4 T SH-RANNEYDUPLICATE W/DIXON-OTHER TESTS-EVANSUNK1 Performed By: #### L 504.2610, L500.4050, L501.73338, L101.9900, L3100.3425, L501.9520, L3410.2400, L2100.0000, L506.0400, L501.6710, L5500.0550, L3100.5440, L3300.1200, L3200.1100 ####[facility] [address] [place], [place], [phone] Sodium [Moles/Vol] 139 mmol/L Normal 136-145 [facility] Comment on above: Order Comment: FT4 T SH-RANNEYDUPLICATE W/DIXON-OTHER TESTS-EVANSUNK1 Performed By: #### L 504.2610, L500.4050, L501.85129, L101.9900, L3100.3425, L501.9520, L3410.2400, L2100.0000, L506.0400, L501.6710, L5500.0550, L3100.5440, L3300.1200, L3200.1100 ####[facility] [address] [place], [place], [phone](180) T PROT 8.0 g/dL Normal 6.4-8.2 [facility] Comment on above: Order Comment: FT4 T SH-RANNEYDUPLICATE W/DIXON-OTHER TESTS-EVANSUNK1 Performed By: #### L 504.2610, L500.4050, L501.64446, L101.9900, L3100.3425, L501.9520, L3410.2400, L2100.0000, L506.0400, L501.6710, L5500.0550, L3100.5440, L3300.1200, L3200.1100 ####[facility] [address] [place], [address] Urea nitrogen [Mass/Vol] 9 mg/dL Normal 7-18 [facility] Comment on above: Order Comment: FT4 T SH-RANNEYDUPLICATE W/DIXON-OTHER TESTS-EVANSUNK1 Performed By: #### L 504.2610, L500.4050, L501.28039, L101.9900, L3100.3425, L501.9520, L3410.2400, L2100.0000, L506.0400, L501.6710, L5500.0550, L3100.5440, L3300.1200, L3200.1100 ####[facility] [address] [place], [address] Employee Profileon 4 Albumin [Mass/Vol] 3.8 g/dL Normal 3.2-5.0 [facility] Comment on above: Order Comment: CBC-D UP W/EMP LABS-STILL NEED DIFF DONE Performed By: #### P SUIV #### [facility] [address] [place], [address] Albumin/Globulin [Mass ratio] 1.0 {ratio} Normal 0.9-2.4 [facility] Comment on above: Order Comment: CBC-D UP W/EMP LABS-STILL NEED DIFF DONE Performed By: #### P SUIV #### [facility] [address] [place], [address] ALK P 70 U/L Normal 45-117 [facility] Comment on above: Order Comment: CBC-D UP W/EMP LABS-STILL NEED DIFF DONE Performed By: #### P SUIV #### [facility] [address] [place], [address] ALT [Catalytic activity/Vol] 22 U/L Normal 13-56 [facility] Comment on above: Order Comment: CBC-D UP W/EMP LABS-STILL NEED DIFF DONE Performed By: #### P SUIV #### [facility] [address] [place], [address] AST [Catalytic activity/Vol] 15 U/L Normal 15-37 [facility] Comment on above: Order Comment: CBC-D UP W/EMP LABS-STILL NEED DIFF DONE Performed By: #### P SUIV #### [facility] [address] [place], [address] Bilirubin [Mass/Vol] 0.30 mg/dL Normal 0.20-1.00 [facility] Comment on above: Order Comment: CBC-D UP W/EMP LABS-STILL NEED DIFF DONE Result Comment: For patients on eltrombopag therapy, use of Dimension Lagrange TBIL is not recommended. Performed By: #### P SUIV #### [facility] [address] [place], [address] Bilirubin.direct [Mass/Vol] 0.12 mg/dL Normal 0.00-0.30 [facility] Comment on above: Order Comment: CBC-D UP W/EMP LABS-STILL NEED DIFF DONE Performed By: #### P SUIV #### [facility] [address] [place], [address] BUN/CRE 14.6 RATIO Normal 10-20 [facility] Comment on above: Order Comment: CBC-D UP W/EMP LABS-STILL NEED DIFF DONE Performed By: #### P SUIV #### [facility] [address] [place], [address] CA,Total 9.4 mg/dL Normal 8.5-10.1 [facility] Comment on above: Order Comment: CBC-D UP W/EMP LABS-STILL NEED DIFF DONE Performed By: #### P SUIV #### [facility] [address] [place], [address] Chloride [Moles/Vol] 104 mmol/L Normal 98-107 [facility] Comment on above: Order Comment: CBC-D UP W/EMP LABS-STILL NEED DIFF DONE Performed By: #### P SUIV #### [facility] [address] [place], [address] CHOL:HDL 2.[address] [facility] Comment on above: Order Comment: CBC-D UP W/EMP LABS-STILL NEED DIFF DONE Performed By: #### P SUIV #### [facility] [address] [place], [address] Cholesterol [Mass/Vol] 186 mg/dL Normal 200 [facility] Comment on above: Order Comment: CBC-D UP W/EMP LABS-STILL NEED DIFF DONE Result Comment: <200 mg/dL Desirable 200-240 mg/dL Borderline >240 mg/dL High Risk Performed By: #### P SUIV #### [facility] [address] [place], [address] Cholesterol in HDL [Mass/Vol] 83 mg/dL Normal [facility] Comment on above: Order Comment: CBC-D UP W/EMP LABS-STILL NEED DIFF DONE Result Comment: The drugs N-Acetylcysteine and Metamizole may falsely depress this assay. Reference Range HDL <40 mg/dL Low HDL Cholesterol HDL >or= 60 mg/dL High HDL Cholesterol Performed By: #### P SUIV #### [facility] [address] [place], [address] Cholesterol in LDL [Mass/Vol] 84 mg/dL Normal 0-130 [facility] Comment on above: Order Comment: CBC-D UP W/EMP LABS-STILL NEED DIFF DONE Performed By: #### P SUIV #### [facility] [address] [place], [address] Cholesterol in VLDL [Mass/Vol] 19 mg/dL Normal 5-40 [facility] Comment on above: Order Comment: CBC-D UP W/EMP LABS-STILL NEED DIFF DONE Performed By: #### P SUIV #### [facility] [address] [place], [address] CO2 [Moles/Vol] 28.0 mmol/L Normal 21.0-32.0 [facility] Comment on above: Order Comment: CBC-D UP W/EMP LABS-STILL NEED DIFF DONE Performed By: #### P SUIV #### [facility] [address] [place], [address] (287) Creatinine [Mass/Vol] 0.68 mg/dL Normal 0.55-1.02 [facility] Comment on above: Order Comment: CBC-D UP W/EMP LABS-STILL NEED DIFF DONE Result Comment: The validity of the calculated GFR GFRAA in patients over 70 years has not been determined. Clinical correlation is essential. Performed By: #### P SUIV #### [facility] [address] [place], [address] EST GFR - AA 121 mL/min Normal >60 [facility] Comment on above: Order Comment: CBC-D UP W/EMP LABS-STILL NEED DIFF DONE Result Comment: Afri can Uzbek GFR Calc Performed By: #### P SUIV #### [facility] [address] [place], [address] (565 GAP 6 Normal 5-15 [facility] Comment on above: Order Comment: CBC-D UP W/EMP LABS-STILL NEED DIFF DONE Performed By: #### P SUIV #### [facility] [address] [place], [address] GFR/1.73 sq M.predicted among non-blacks MDRD (S/P/Bld) [Vol rate/Area] 100 mL/min/{1.73_m2} Normal >60 [facility] Comment on above: Order Comment: CBC-D UP W/EMP LABS-STILL NEED DIFF DONE Result Comment: Non- GFR Calc Performed By: #### P SUIV #### [facility] [address] [place], [address] (287) Globulin (S) [Mass/Vol] 3.9 g/dL Normal 2.2-4.2 [facility] Comment on above: Order Comment: CBC-D UP W/EMP LABS-STILL NEED DIFF DONE Performed By: #### P SUIV #### [facility] [address] [place], [address] Glucose [Mass/Vol] 87 mg/dL Normal 74-106 [facility] Comment on above: Order Comment: CBC-D UP W/EMP LABS-STILL NEED DIFF DONE Performed By: #### P SUIV #### [facility] [address] [place], [address] LDH 182 U/L Normal 84-246 [facility] Comment on above: Order Comment: CBC-D UP W/EMP LABS-STILL NEED DIFF DONE Performed By: #### P SUIV #### [facility] [address] [place], [address] Phosphate [Mass/Vol] 2.9 mg/dL Normal 2.5-4.9 [facility] Comment on above: Order Comment: CBC-D UP W/EMP LABS-STILL NEED DIFF DONE Performed By: #### P SUIV #### [facility] [address] [place], [address] Potassium [Moles/Vol] 4.2 mmol/L Normal 3.5-5.1 [facility] Comment on above: Order Comment: CBC-D UP W/EMP LABS-STILL NEED DIFF DONE Performed By: #### P SUIV #### [facility] [address] [place], [address] Sodium [Moles/Vol] 138 mmol/L Normal 136-145 [facility] Comment on above: Order Comment: CBC-D UP W/EMP LABS-STILL NEED DIFF DONE Performed By: #### P SUIV #### [facility] [address] [place], [address] T PROT 7.7 g/dL Normal 6.4-8.2 [facility] Comment on above: Order Comment: CBC-D UP W/EMP LABS-STILL NEED DIFF DONE Performed By: #### P SUIV #### [facility] [address] [place], [address] Triglyceride [Mass/Vol] 93 mg/dL Normal [facility] Comment on above: Order Comment: CBC-D UP W/EMP LABS-STILL NEED DIFF DONE Result Comment: The drugs N-Acetylcysteine and Metamizole may falsely depress this assay. Serum Triglycerides Reference Interval Normal <150 mg/dL Borderline high 150 - 199 mg/dL High 200 - 499 mg/dL Very High > or = 500 mg/dL Performed By: #### P SUIV #### [facility] [address] [place], [address] Urea nitrogen [Mass/Vol] 10 mg/dL Normal 7-18 [facility] Comment on above: Order Comment: CBC-D UP W/EMP LABS-STILL NEED DIFF DONE Performed By: #### P SUIV #### [facility] [address] [place], [address] URIC 3.0 mg/dL Normal 2.6-6.0 [facility] Comment on above: Order Comment: CBC-D UP W/EMP LABS-STILL NEED DIFF DONE Result Comment: The drugs N-Acetylcysteine and Metamizole may falsely depress this assay. Performed By: #### P SUIV #### [facility] [address] [place], [address] Erythrocyte Sed Rateon 06-05 SED RATE 2 mm/hr Normal 0-30 [facility] Comment on above: Order Comment: FT4 T SARA-RANNEYDUPLICATE W/DIXON-OTHER TESTS-DIXON Performed By: #### L 504.2610, L500.4050, L501.12746, L101.9900, L3100.3425, L501.9520, L3410.2400, L2100.0000, L506.0400, L501.6710, L5500.0550, L3100.5440, L3300.1200, L3200.1100 ####[facility] [address] [place], [address] Free T3on 06-05-2024 Free T3 [Mass/Vol] 2.5 pg/mL Normal 2.18-3.98 [facility] Comment on above: Order Comment: FT4 T SH-RANNEYDUPLICATE W/DIXON-OTHER TESTS-EVANSUNK1 Performed By: #### L 504.2610, L500.4050, L501.23477, L101.9900, L3100.3425, L501.9520, L3410.2400, L2100.0000, L506.0400, L501.6710, L5500.0550, L3100.5440, L3300.1200, L3200.1100 ####[facility] [address] [place], [address] LDHon 06-05-2024 LDH 186 U/L Normal 84-246 [facility] Comment on above: Order Comment: FT4 T SH-RANNEYDUPLICATE W/DIXON-OTHER TESTS-EVANSUNK1 Performed By: #### L 504.2610, L500.4050, L501.63599, L101.9900, L3100.3425, L501.9520, L3410.2400, L2100.0000, L506.0400, L501.6710, L5500.0550, L3100.5440, L3300.1200, L3200.1100 ####[facility] [address] [place], [address] Progress Noteon 06-05-2024 Progress Note Administrations This Visit onabotulinumtoxin A (BOTOX) injection 200 Units Admin Date 06/05/24 Action Given Dose 200 Units Route IntraMUSCular Site Other Administered By CLEVELAND Lara CNP Ordering Provider: CLEVELAND Lara CNP NDC: 4475-5857-12 Lot#: [id number] Resolution Specialist: Allergan Patient Supplied?: SAMPLE Normal [facility] T4 Free Directon 06-05-2024 T4 FREE DIRECT 0.89 ng/dL Normal 0.76-1.46 [facility] Comment on above: Order Comment: FT4 T SH-RANNEYDUPLICATE W/DIXON-OTHER TESTS-EVANSUNK1 Performed By: #### L 504.2610, L500.4050, L501.94998, L101.9900, L3100.3425, L501.9520, L3410.2400, L2100.0000, L506.0400, L501.6710, L5500.0550, L3100.5440, L3300.1200, L3200.1100 ####[facility] [address] [place], [place], [phone] Thyroid Stim Hormone (TSH)on 06-05-2024 TSH 1.240 uIU/mL Normal 0.358-3.740 [facility] Comment on above: Order Comment: FT4 T SH-RANNEYDUPLICATE W/DIXON-OTHER TESTS-EVANS1 Performed By: #### L 504.2610, L500.4050, L501.99231, L101.9900, L3100.3425, L501.9520, L3410.2400, L2100.0000, L506.0400, L501.6710, L5500.0550, L3100.5440, L3300.1200, L3200.1100 ####[facility] [address] [place], [place], [address] 36on 05-23-2024 36 Aetiffanie lin for filled out, scanned and faxed. Will await insurance decision. Normal [facility] Gastroenterology Visit Repor ton 05-16-2024 Gastroenterology Visit Report [facility] Gastroenterology [address] [place] [address] OFFICE VISIT Date of Service: 05/16/24 MR#: [id number] Acct: [id number] Name: MICHELLE CARLIN ANN Rep #: [id number] : 1980 Provider: TANK CAR RECONDITIONER-C Jayla Ev ans Age/Sex: 43/F Location: BMS.BGI Status: Signed Intake Vital Signs 06/06/20 14:05 [...] 1 cap PO DAILY 04/22/18 05/16/24 History jmibizhcpy-dmhgncchhalnv-udf feine 1 tab PO Q4H PRN PRN [...] Pt takes magnesium, probiotics, and multivitamin daily. [facility] Medical History (Updated 05/16/24 @ 12:29 by [...] to the office today for establishment with [facility] for complaints of sharp constant LLQ abdominal pain. 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 She reports pain has been present [...] in vision ENT (more content not included)... [facility] 05-12-2024 36 Requested Prescripti ons Signed Prescriptions Disp Refills fremanezumab (Ajovy) 225 MG/1.5ML auto-injector 1.5 mL 2 Sig: Inject 1 Pen (225 mg) under the skin every 30 (thirty) days. Authorizing Provider: MARIANA ACUÑA [facility] 36 Pt reached out to SP about Rx. Pended Rx. [place] [id number] 36 Insurance needs a PA on Ajovy. [address] 04-28-2024 36 Lmovm please release message to patient as written [place] [phone] Please advise the pa tient she must try and fail Ajovy before approving Emgality. The prescription was sent to the pharmacy to crop picker. [address] 04-27-2024 36 Patient has new pres cription insurance and [facility] submitted the RX Prescription PA for Botox and PA was Denied. Per new insurance, the requested medication can only be approved if the patient has trial and failure of one of the following; aimovig or ajovy Botox RX Prescription PA Denied, until pt tries and fails Aimovig OR Ajovy [facility] Final Surgical Pathology Rep [facility] 10-14-2023 Final Surgical Pathology Report . Pathology Reports Accession: Collected Date/Time: Received Date/Time: Pathologist: [id number] 10/13/2023 12:05 EST 10/13/2023 14:06 KATHERINE GREEN MD Final Surgical Pathology Report DIAGNOSIS: A. [...] All parts labelled with patient name and [id number] A. Received in formalin labelled left lateral [...] Electronically Signed by Pathology Report verified by [facility] KATHERINE LINTON Sign out Date: 10/14/2023 11:52 Performing Lab: [facility], [address] [place] [address] Pathology Dept Disclaimer If ancillary studies were utilized, the following Laboratory Developed Test (LDT) disclaimer will apply: Under CLIA requirements, [facility] is qualified to perform high complexity testing. For all ancillary stains, positive and negative controls stain appropriately. Performance characteristics of immunohistochemical and chromogenic in-situ hybridization tests have been determined by [facility]. These tests are used for clinical purposes, They should not be regarded as investigational or for research. Normal [facility] ([place]) [place] MAMMOGRAM DIAGNOSTIC BILA TERAL W/TOMOon 09-27-2023 MA MAMMOGRAM DIAGNOSTIC BILATERAL W/PALOMO ORIGINAL FROM: [place] [id number] [place] [address] PROCEDURE FOR: MICHELLE CARLIN [address] [place] [address] Home: PID#: [id number] Exam#: [id number] : 1980 Age: 43 TO: ELIAN NESBITT MD [address] [address] Fax: NO FAX EXAMINATION: DIAGNOSTIC BILATERAL MAMMOGRAM [...] ELIAN NESBITT CLINICAL: POST LUMPECTOMY RIGHT BREAST. Formula Checker: TIA MYERS RT(R)(M)(CT) letter sent: Normal BI-RADS 1 and 2 Mammogram BI-RADS: 2 Benign Normal [facility] ([place]) CALPROon 08-19-2023 Calprotectin, Fecal Quantitative 69.0 ug/g High <50 [facility] ([place]) Comment on above: Result Comment: Perf ormed By: DietrichMobiTXd [place] [id number] Head Up Operator Helper: Nicholas Reyes III, M.D. CLIA#: [id number] Performed By: #### C ALPRO ####[address] [place], [place] [address] LABORATORYOrdered By: EDSON OLIVA CONTRIBUTOR_SYSTEM on 08-17-2023 Calprotectin, Fecal Quantitative 69.0 1 High <50 AO Sendouts SS Comment on above: Result Comment: Perf ormed By: Dietrich [facility] [place] [address] Head Up Operator Helper: Nicholas Reyes III, M.D. CLIA#: [id number] .Auto Diffon 08-12-2023 Basophil, Absolute 0.0 10 3/mcL Normal 0.0-0.2 [facility] ([place]) Comment on above: Performed By: #### A DIFF, CRP, CBC, CMP, GFR, ANEU #### [address] [address] Basophils/100 WBC (Bld) 0.2 % Normal 0.0-2.5 [facility] ([place]) Comment on above: Performed By: #### A DIFF, CRP, CBC, CMP, GFR, ANEU #### [address] [address] Eosinophil, Absolute 0.1 10 3/mcL Normal 0.0-0.4 [facility] ([place]) Comment on above: Performed By: #### A DIFF, CRP, CBC, CMP, GFR, ANEU #### [address] [address] Eosinophils/100 WBC (Bld) 0.9 % Normal 0.0-7.0 [facility] ([place]) Comment on above: Performed By: #### A DIFF, CRP, CBC, CMP, GFR, ANEU #### [address] [address] Lymphocyte, Absolute 2.9 10 3/mcL Normal 0.8-3.9 [facility] ([place]) Comment on above: Performed By: #### A DIFF, CRP, CBC, CMP, GFR, ANEU #### [address] [address] Lymphocytes/100 WBC (Bld) 41.8 % Normal 10.0-50.0 [facility] ([place]) Comment on above: Performed By: #### A DIFF, CRP, CBC, CMP, GFR, ANEU #### [address] [address] Monocyte, Absolute 0.4 10 3/mcL Normal 0.2-1.0 [facility] ([place]) Comment on above: Performed By: #### A DIFF, CRP, CBC, CMP, GFR, ANEU #### [address] [address] Monocytes/100 WBC (Bld) 6.3 % Normal 1.7-13.0 [facility] ([place]) Comment on above: Performed By: #### A DIFF, CRP, CBC, CMP, GFR, ANEU #### [place] [address] [place], [place] [address] Neutrophils/100 WBC (Bld) 50.8 % Normal 37.0-80.0 [facility] ([place]) Comment on above: Performed By: #### A DIFF, CRP, CBC, CMP, GFR, ANEU #### [address] [address] .GFRon 08-12-2023 GFR 110 ml/min/1.73sqm Normal [facility] ([place]) Comment on above: Result Comment: GFR Population [...] DIFF, CRP, CBC, CMP, GFR, ANEU #### [address] [address] GFR Non- 91 ml/min/1.73sqm Normal [facility] ([place]) Comment on above: Result Comment: GFR Population [...] DIFF, CRP, CBC, CMP, GFR, ANEU #### [address] [address] .NEUABSon 08-12-2023 Neutrophil, Absolute 3.6 10 3/mcL Normal 2.9-6.2 [facility] ([place]) Comment on above: Performed By: #### A DIFF, CRP, CBC, CMP, GFR, ANEU #### [place] [address] CBCon 08-12-2023 Erythrocyte distribution width (RBC) [Ratio] 13.3 % Normal 11.5-14.5 [facility] ([place]) Comment on above: Performed By: #### A DIFF, CRP, CBC, CMP, GFR, ANEU #### [place] [address] Hematocrit (Bld) [Volume fraction] 40.7 % Normal 37.0-47.0 [facility] ([place]) Comment on above: Performed By: #### A DIFF, CRP, CBC, CMP, GFR, ANEU #### [address] [address] Hgb 13.6 G/dL Normal 12.0-16.0 [facility] ([place]) Comment on above: Performed By: #### A DIFF, CRP, CBC, CMP, GFR, ANEU #### [place] [address] MCH (RBC) [Entitic mass] 28.7 pg Normal 27.0-31.2 [facility] ([place]) Comment on above: Performed By: #### A DIFF, CRP, CBC, CMP, GFR, ANEU #### [place] [address] MCHC 33.3 G/dL Normal 33.0-37.0 [facility] ([place]) Comment on above: Performed By: #### A DIFF, CRP, CBC, CMP, GFR, ANEU #### [address] [address] MCV (RBC) [Entitic vol] 86.1 fL Normal 80.0-94.0 [facility] ([place]) Comment on above: Performed By: #### A DIFF, CRP, CBC, CMP, GFR, ANEU #### [address] [id number] Platelet 460 10 3/mcL High 130-400 [facility] ([place]) Comment on above: Performed By: #### A DIFF, CRP, CBC, CMP, GFR, ANEU #### [address] [address] Platelet mean volume (Bld) [Entitic vol] 7.9 fL Normal 7.4-10.4 [facility] ([place]) Comment on above: Performed By: #### A DIFF, CRP, CBC, CMP, GFR, ANEU #### [address] [address] RBC 4.73 10 6/mcL Normal 4.20-5.40 [facility] ([place] Comment on above: Performed By: #### A DIFF, CRP, CBC, CMP, GFR, ANEU #### [address] [address] WBC 7.0 10 3/mcL Normal 4.6-10.8 [facility] ([place]) Comment on above: Performed By: #### A DIFF, CRP, CBC, CMP, GFR, ANEU #### [address] [address] CMPon 08-12-2023 Albumin Level 3.7 G/dL Normal 3.5-5.0 [facility] ([place] Comment on above: Performed By: #### A DIFF, CRP, CBC, CMP, GFR, ANEU #### [address] [address] Albumin/Globulin [Mass ratio] 1.0 {ratio} Low 1.1-2.5 [facility] ([place]) Comment on above: Performed By: #### A DIFF, CRP, CBC, CMP, GFR, ANEU #### [address] [address] ALP [Catalytic activity/Vol] 76 U/L Normal 40-135 [facility] ([place]) Comment on above: Performed By: #### A DIFF, CRP, CBC, CMP, GFR, ANEU #### [address] [address] ALT [Catalytic activity/Vol] 22 U/L Normal 14-59 [facility] ([place]) Comment on above: Performed By: #### A DIFF, CRP, CBC, CMP, GFR, ANEU #### [address] [address] AST [Catalytic activity/Vol] 16 U/L Normal 10-40 [facility] ([place]) Comment on above: Performed By: #### A DIFF, CRP, CBC, CMP, GFR, ANEU #### [address] [address] Bili Total 0.3 mg/dL Normal 0.2-1.0 [facility] ([place]) Comment on above: Result Comment: Use of this assay is not recommended for patients undergoing treatment with eltrombopag due to the potential for falsely elevated results. Performed By: #### A DIFF, CRP, CBC, CMP, GFR, ANEU #### [address] [address] BUN/Creatinine Ratio 7 ratio Normal 7-27 [facility] ([place]) Comment on above: Performed By: #### A DIFF, CRP, CBC, CMP, GFR, ANEU #### [address] [address] Calcium [Mass/Vol] 9.6 mg/dL Normal 8.4-10.2 [facility] ([place]) Comment on above: Performed By: #### A DIFF, CRP, CBC, CMP, GFR, ANEU #### [address] [address] Chloride [Moles/Vol] 103 mmol/L Normal 98-107 [facility] ([place]) Comment on above: Performed By: #### A DIFF, CRP, CBC, CMP, GFR, ANEU #### [address] [address] CO2 [Moles/Vol] 30 mmol/L High 22-29 [facility] ([place]) Comment on above: Performed By: #### A DIFF, CRP, CBC, CMP, GFR, ANEU #### [address] [address] Creatinine [Mass/Vol] 0.71 mg/dL Normal 0.55-1.02 [facility] ([place]) Comment on above: Performed By: #### A DIFF, CRP, CBC, CMP, GFR, ANEU #### [place] [id number] Electrolyte Balance 10.0 mEq/L Normal 4.0-15.0 [facility] ([place]) Comment on above: Performed By: #### A DIFF, CRP, CBC, CMP, GFR, ANEU #### [place] [id number] Globulin 3.6 G/dL Normal [facility] ([place]) Comment on above: Performed By: #### A DIFF, CRP, CBC, CMP, GFR, ANEU #### [place] [id number] Glucose [Mass/Vol] 107 mg/dL High 70-105 [facility] ([place]) Comment on above: Performed By: #### A DIFF, CRP, CBC, CMP, GFR, ANEU #### [address] [address] Potassium [Moles/Vol] 4.2 mmol/L Normal 3.5-5.1 [facility] ([place]) Comment on above: Performed By: #### A DIFF, CRP, CBC, CMP, GFR, ANEU #### [place] [address] Sodium [Moles/Vol] 143 mmol/L Normal 136-145 [facility] ([place]) Comment on above: Performed By: #### A DIFF, CRP, CBC, CMP, GFR, ANEU #### [address] [address] Total Protein 7.3 G/dL Normal 6.4-8.2 [facility] ([place]) Comment on above: Performed By: #### A DIFF, CRP, CBC, CMP, GFR, ANEU #### [address] [address] Urea nitrogen [Mass/Vol] 5 mg/dL Low 7-18 [facility] ([place]) Comment on above: Performed By: #### A DIFF, CRP, CBC, CMP, GFR, ANEU #### [address] [address] CRPon 08-12-2023 C-Reactive Protein 0.3 mg/dL Normal 0.0-0.3 [facility] ([place]) Comment on above: Performed By: #### A DIFF, CRP, CBC, CMP, GFR, ANEU #### [address] [address] [address] ABDOMEN/PELVIS W/CONTRAST on 08-06-2023 CT ABDOMEN/PELVIS W/CONTRAST ORIGINAL EXAMINATION: CT OF THE ABDOMEN AND PELVIS WITH SJJPDOSD62/14/2023 3:12 pm TECHNIQUE: CT of the abdomen [...] Date: 08/06/2023 8:02:56 AM Ordering Provider: TRUDI MURGUIA Normal [facility]) FT3on 08-05-2023 Free T3 [Mass/Vol] 3.18 pg/mL Normal 2.30-4.00 [facility]) Comment on above: Performed By: #### F T3, TSH, FT4 ####[address] [place], [place] [address] FT4on 08-05-2023 Free T4 [Mass/Vol] 1.01 ng/dL Normal 0.76-1.46 [facility] ([place]) Comment on above: Performed By: #### F T3, TSH, FT4 ####[address] [place], [place] [address] LABORATORYOrdered By: SYSTEM SYSTEM on 08-05-2023 Free T3 [Mass/Vol] 3.18 pg/mL Normal 2.30 - 4. 00 pg/mL AO ADM SS Free T4 [Mass/Vol] 1.01 ng/dL Normal 0.76 - 1. 46 ng/dL AO ADM SS TSH Qn 1.94 m[IU]/L Normal 0.36 - 3.74 mcIU/mL AO ADM SS TSHon 08-05-2023 TSH Qn 1.94 m[IU]/L Normal 0.36-3.74 [facility] ([place]) Comment on above: Performed By: #### F T3, TSH, FT4 ####[address] [place], [place] [address] MRI BRAIN W/O CONTRASTon MRI BRAIN W/O [...] 03/09/2023 9:03:20 AM Ordering Provider: JORDAN Vences [facility]) XR ABDOMEN 2 VIEWS W/ DECUB/ ERECTon [...] 03/08/2023 7:37:43 AM Ordering Provider: MARK Vences [facility] ([place]) .Auto Diffon 03-04-2023 Basophil, Absolute 0.0 10 3/mcL Normal 0.0-0.2 [facility] ([place]) Comment on above: Performed By: #### H FP, ADIFF, LIPID, FT4, ANEU, GFR, CBC, ESR, TSH, BMP ####[address] [place], [place] [address] Basophils/100 WBC (Bld) 0.2 % Normal 0.0-2.5 [facility] ([place]) Comment on above: Performed By: #### H FP, ADIFF, LIPID, FT4, ANEU, GFR, CBC, ESR, TSH, BMP ####[address] [place], [place] [address] Eosinophil, Absolute 0.1 10 3/mcL Normal 0.0-0.4 [facility] ([place]) Comment on above: Performed By: #### H FP, ADIFF, LIPID, FT4, ANEU, GFR, CBC, ESR, TSH, BMP ####[address] [place], [place] [address] Eosinophils/100 WBC (Bld) 1.0 % Normal 0.0-7.0 [facility] ([place]) Comment on above: Performed By: #### H FP, ADIFF, LIPID, FT4, ANEU, GFR, CBC, ESR, TSH, BMP ####[address] [place], [place] [address] Lymphocyte, Absolute 2.3 10 3/mcL Normal 0.8-3.9 [facility] ([place]) Comment on above: Performed By: #### H FP, ADIFF, LIPID, FT4, ANEU, GFR, CBC, ESR, TSH, BMP ####[address] [place], [place] [address] Lymphocytes/100 WBC (Bld) 34.4 % Normal 10.0-50.0 [facility] ([place]) Comment on above: Performed By: #### H FP, ADIFF, LIPID, FT4, ANEU, GFR, CBC, ESR, TSH, BMP ####[address] [place], [place] [address] Monocyte, Absolute 0.4 10 3/mcL Normal 0.2-1.0 [facility] ([place]) Comment on above: Performed By: #### H FP, ADIFF, LIPID, FT4, ANEU, GFR, CBC, ESR, TSH, BMP ####[address] [place], [place] [address] Monocytes/100 WBC (Bld) 5.4 % Normal 1.7-13.0 [facility] ([place]) Comment on above: Performed By: #### H FP, ADIFF, LIPID, FT4, ANEU, GFR, CBC, ESR, TSH, BMP ####[address] [place], [place] [address] Neutrophils/100 WBC (Bld) 59.0 % Normal 37.0-80.0 [facility] ([place]) Comment on above: Performed By: #### H FP, ADIFF, LIPID, FT4, ANEU, GFR, CBC, ESR, TSH, BMP ####[address] [place], [place] [address] .GFRon 03-04-2023 GFR 110 ml/min/1.73sqm Normal [facility] ([place]) Comment on above: Result Comment: GFR Population [...] ANEU, GFR, CBC, ESR, TSH, BMP ####[address] [place], [place] [address] GFR Non- 91 ml/min/1.73sqm Normal [facility] ([place]) Comment on above: Result Comment: GFR Population [...] ANEU, GFR, CBC, ESR, TSH, BMP ####[address] [place], [place] [address] .NEUABSon 03-04-2023 Neutrophil, Absolute 3.9 10 3/mcL Normal 2.9-6.2 [facility] ([place]) Comment on above: Performed By: #### H FP, ADIFF, LIPID, FT4, ANEU, GFR, CBC, ESR, TSH, BMP ####[address] [place], [place] [address] BMPon 03-04-2023 BUN/Creatinine Ratio 7 ratio Normal 7-27 [facility] ([place]) Comment on above: Performed By: #### H FP, ADIFF, LIPID, FT4, ANEU, GFR, CBC, ESR, TSH, BMP ####[address] [place], [place] [address] Calcium [Mass/Vol] 9.7 mg/dL Normal 8.4-10.2 [facility] ([place]) Comment on above: Performed By: #### H FP, ADIFF, LIPID, FT4, ANEU, GFR, CBC, ESR, TSH, BMP ####[address] [place], [place] [address] Chloride [Moles/Vol] 104 mmol/L Normal 98-107 [facility] ([place]) Comment on above: Performed By: #### H FP, ADIFF, LIPID, FT4, ANEU, GFR, CBC, ESR, TSH, BMP ####[address] [place], [place] [address] CO2 [Moles/Vol] 31 mmol/L High 22-29 [facility] ([place]) Comment on above: Performed By: #### H FP, ADIFF, LIPID, FT4, ANEU, GFR, CBC, ESR, TSH, BMP ####[address] [place], [place] [address] Creatinine [Mass/Vol] 0.71 mg/dL Normal 0.55-1.02 [facility] ([place]) Comment on above: Performed By: #### H FP, ADIFF, LIPID, FT4, ANEU, GFR, CBC, ESR, TSH, BMP ####[address] [place], [place] [address] Electrolyte Balance 7.0 mEq/L Normal 4.0-15.0 [facility] ([place]) Comment on above: Performed By: #### H FP, ADIFF, LIPID, FT4, ANEU, GFR, CBC, ESR, TSH, BMP ####[address] [place], [place] [address] Glucose [Mass/Vol] 90 mg/dL Normal 70-105 [facility] ([place]) Comment on above: Performed By: #### H FP, ADIFF, LIPID, FT4, ANEU, GFR, CBC, ESR, TSH, BMP ####[address] [place], [place] [address] Potassium [Moles/Vol] 4.3 mmol/L Normal 3.5-5.1 [facility] ([place]) Comment on above: Performed By: #### H FP, ADIFF, LIPID, FT4, ANEU, GFR, CBC, ESR, TSH, BMP ####[address] [place], [place] [address] Sodium [Moles/Vol] 142 mmol/L Normal 136-145 [facility] ([place]) Comment on above: Performed By: #### H FP, ADIFF, LIPID, FT4, ANEU, GFR, CBC, ESR, TSH, BMP ####[address] [place], [place] [address] Urea nitrogen [Mass/Vol] 5 mg/dL Low 7-18 [facility] ([place]) Comment on above: Performed By: #### H FP, ADIFF, LIPID, FT4, ANEU, GFR, CBC, ESR, TSH, BMP ####[address] [place], [place] [address] CBCon 03-04-2023 Erythrocyte distribution width (RBC) [Ratio] 13.1 % Normal 11.5-14.5 [facility] ([place]) Comment on above: Performed By: #### H FP, ADIFF, LIPID, FT4, ANEU, GFR, CBC, ESR, TSH, BMP ####[address] [place], [place] [address] Hematocrit (Bld) [Volume fraction] 39.6 % Normal 37.0-47.0 [facility] ([place]) Comment on above: Performed By: #### H FP, ADIFF, LIPID, FT4, ANEU, GFR, CBC, ESR, TSH, BMP ####[address] [place], [place] [address] Hgb 13.3 G/dL Normal 12.0-16.0 [facility] ([place]) Comment on above: Performed By: #### H FP, ADIFF, LIPID, FT4, ANEU, GFR, CBC, ESR, TSH, BMP ####[address] [place], [place] [address] MCH (RBC) [Entitic mass] 28.8 pg Normal 27.0-31.2 [facility] ([place]) Comment on above: Performed By: #### H FP, ADIFF, LIPID, FT4, ANEU, GFR, CBC, ESR, TSH, BMP ####[address] [place], [place] [address] MCHC 33.5 G/dL Normal 33.0-37.0 [facility] ([place]) Comment on above: Performed By: #### H FP, ADIFF, LIPID, FT4, ANEU, GFR, CBC, ESR, TSH, BMP ####[address] [place], [place] [address] MCV (RBC) [Entitic vol] 85.9 fL Normal 80.0-94.0 [facility] ([place]) Comment on above: Performed By: #### H FP, ADIFF, LIPID, FT4, ANEU, GFR, CBC, ESR, TSH, BMP ####[address] [place], [place] [address] Platelet 361 10 3/mcL Normal 130-400 [facility] ([place]) Comment on above: Performed By: #### H FP, ADIFF, LIPID, FT4, ANEU, GFR, CBC, ESR, TSH, BMP ####[address] [place], [place] [address] Platelet mean volume (Bld) [Entitic vol] 8.3 fL Normal 7.4-10.4 [facility] ([place]) Comment on above: Performed By: #### H FP, ADIFF, LIPID, FT4, ANEU, GFR, CBC, ESR, TSH, BMP ####[address] [place], [place] [address] RBC 4.61 10 6/mcL Normal 4.20-5.40 [facility] ([place]) Comment on above: Performed By: #### H FP, ADIFF, LIPID, FT4, ANEU, GFR, CBC, ESR, TSH, BMP ####[address] [place], [place] [address] WBC 6.6 10 3/mcL Normal 4.6-10.8 [facility] ([place]) Comment on above: Performed By: #### H FP, ADIFF, LIPID, FT4, ANEU, GFR, CBC, ESR, TSH, BMP ####[address] [place], [place] [address] ESRon 03-04-2023 Erythrocyte Sed Rate 3 mm/hr Normal 0-20 [facility] ([place]) Comment on above: Performed By: #### H FP, ADIFF, LIPID, FT4, ANEU, GFR, CBC, ESR, TSH, BMP ####[address] [place], [place] [address] FT4on 03-04-2023 Free T4 [Mass/Vol] 0.95 ng/dL Normal 0.76-1.46 [facility] ([place]) Comment on above: Performed By: #### H FP, ADIFF, LIPID, FT4, ANEU, GFR, CBC, ESR, TSH, BMP ####[address] [place], [place] [address] HFPon 03-04-2023 Bili Indirect 0.2 mg/dL Normal [facility] ([place]) Comment on above: Performed By: #### H FP, ADIFF, LIPID, FT4, ANEU, GFR, CBC, ESR, TSH, BMP ####[address] [place], [place] [address] Albumin Level 4.0 G/dL Normal 3.5-5.0 [facility] ([place]) Comment on above: Performed By: #### H FP, ADIFF, LIPID, FT4, ANEU, GFR, CBC, ESR, TSH, BMP ####[address] [place], [place] [address] Albumin/Globulin [Mass ratio] 1.2 {ratio} Normal 1.1-2.5 [facility]) Comment on above: Performed By: #### H FP, ADIFF, LIPID, FT4, ANEU, GFR, CBC, ESR, TSH, BMP ####[address] [place], [place] [address] ALP [Catalytic activity/Vol] 74 U/L Normal 40-135 [facility] ([place]) Comment on above: Performed By: #### H FP, ADIFF, LIPID, FT4, ANEU, GFR, CBC, ESR, TSH, BMP ####[address] [place], [place] [address] ALT [Catalytic activity/Vol] 29 U/L Normal 14-59 [facility] ([place]) Comment on above: Performed By: #### H FP, ADIFF, LIPID, FT4, ANEU, GFR, CBC, ESR, TSH, BMP ####[address] [place], [place] [address] AST [Catalytic activity/Vol] 19 U/L Normal 10-40 [facility] ([place]) Comment on above: Performed By: #### H FP, ADIFF, LIPID, FT4, ANEU, GFR, CBC, ESR, TSH, BMP ####[address] [place], [place] [address] Bili Direct 0.1 mg/dL Normal 0.0-0.2 [facility] ([place]) Comment on above: Result Comment: Use of this assay is not recommended for patients undergoing treatment with eltrombopag due to the potential for falsely elevated results. Performed By: #### H FP, ADIFF, LIPID, FT4, ANEU, GFR, CBC, ESR, TSH, BMP ####[address] [place], [place] [address] Bili Total 0.3 mg/dL Normal 0.2-1.0 [facility] ([place]) Comment on above: Result Comment: Use of this assay is not recommended for patients undergoing treatment with eltrombopag due to the potential for falsely elevated results. Performed By: #### H FP, ADIFF, LIPID, FT4, ANEU, GFR, CBC, ESR, TSH, BMP ####[address] [place], [place] [address] Globulin 3.4 G/dL Normal [facility] ([place]) Comment on above: Performed By: #### H FP, ADIFF, LIPID, FT4, ANEU, GFR, CBC, ESR, TSH, BMP ####[address] [place], [place] [address] Total Protein 7.4 G/dL Normal 6.4-8.2 [facility] ([place]) Comment on above: Performed By: #### H FP, ADIFF, LIPID, FT4, ANEU, GFR, CBC, ESR, TSH, BMP ####[address] [place], [place] [address] LABORATORYOrdered By: SYSTEM SYSTEM on 03-04-2023 Albumin [...] 03-04-2023 Cholesterol [Mass/Vol] 191 mg/dL Normal 0-200 [facility] ([place]) Comment on above: Result Comment: Chol esterol Reference Interval: Less than 200 Desirable 200-239 Borderline high risk 240 and above High risk Performed By: #### H FP, ADIFF, LIPID, FT4, ANEU, GFR, CBC, ESR, TSH, BMP ####[address] [place], [place] [address] Cholesterol in HDL [Mass/Vol] 72 mg/dL High 40-60 [facility] ([place]) Comment on above: Performed By: #### H FP, ADIFF, LIPID, FT4, ANEU, GFR, CBC, ESR, TSH, BMP ####[address] [place], [place] [address] Cholesterol in LDL [Mass/Vol] 100 mg/dL Normal 0-130 [facility] ([place]) Comment on above: Performed By: #### H FP, ADIFF, LIPID, FT4, ANEU, GFR, CBC, ESR, TSH, BMP ####[address] [place], [place] [address] Triglyceride [Mass/Vol] 95 mg/dL Normal 0-150 [facility] ([place]) Comment on above: Result Comment: Trig lyceride Reference Interval: Less than 150 Normal 150-199 Borderline high risk 200-499 High risk 500 or higher Very high risk Performed By: #### H FP, ADIFF, LIPID, FT4, ANEU, GFR, CBC, ESR, TSH, BMP ####[address] [place], [place] [address] TSHon 03-04-2023 TSH Qn 4.87 m[IU]/L High 0.36-3.74 [facility] ([place]) Comment on above: Performed By: #### H FP, ADIFF, LIPID, FT4, ANEU, GFR, CBC, ESR, TSH, BMP ####[address] [place], [place] [address] HBV surface Ab Ql (S)on 12-22 HBV surface Ab Qn (S) 142.48 mIU/mL Normal >=12.00 [facility] Comment on above: Order Comment: Speci men Type: BLOOD SPECIMEN Ordering Facility: [facility] Address: [address] [place] [address] Performed By: #### R JOSSUE, 43646-2, JOSY PATE #### [facility] CLIA [id number] [address] [place] [address] [place] HBV surface Ab Ser Qlon 12-22 HBV surface Ab Ql (S) Positive Normal Positive [facility] Comment on above: Order Comment: Speci [facility] Type: BLOOD SPECIMEN Ordering Facility: [facility] Address: [address] [place] [address] Result Comment: Thes e results are consistent with previous exposure and/or immunity to the hepatitis B virus antigen. Performed By: #### R UBIGG, 18144-9, MEASLG, MUMPSG #### [facility] CLIA [id number] [address] [place] [address] [place] MUMPS IGG ABon 01-15-2023 MUMPS IGG, QUAL Positive Normal Positive [facility] Comment on above: Order [facility]: [facility]OD [facility]CIMEN Ordering Facility: [facility] Address: [address] [place] [address] Result Comment: The result suggests recent or past exposure to Mumps virus or Mumps vaccination. The current test does not detect neutralizing antibodies. Positive result may also be seen due to presence of passively-transferred antibodies. Please correlate with patient's history. Performed By: #### R UBIGG, 70892-8, MEASLG, MUMPSG #### [facility] CLIA [id number] [address] [place] [address] [place] RUBELLA IGG ABon 01-15-2023 RUBELLA IGG AB, QUAL Positive Normal Positive [facility] Comment on above: Order Comment: [facility] Type: BLOOD SPECIMEN Ordering Facility: [facility] Address: [address] [place] [address] Result Comment: The result suggests recent or past exposure to Rubella virus or history of Rubella vaccination. Positive result may also be seen due to presence of passively-transferred antibodies. Please correlate with patient's history. Performed By: #### R UBIGG, 37448-0, MEASLG, MUMPSG #### [facility] CLIA [id number] [address] [place] [address] [place] RUBEOLA (MEASLES)IGGon 01-15 MEASLES IGG AB, QUAL Positive Normal Positive [facility] Comment on above: Order Comment: Speci men Type: BLOOD SPECIMEN Ordering Facility: [facility] Address: [address] [place] [address] Result Comment: The result suggests recent or past exposure to Measles virus or Measles vaccination. The current test does not detect neutralizing antibodies. Positive result may also be seen due to presence of passively-transferred antibodies. Please correlate with patient's history. Performed By: #### R UBIGG, 60792-9, MEASLG, MUMPSG #### [facility] CLIA [id number] [address] [place] [address] [place] Vital Signs Date Time Vital Sign Value Performing Clinician Facbhavani alicea 04-16-2025 10:47-0400 Diastolic blood pressure 66 mm[Hg] Mariana Acuña SURVEYING TECHNICIAN - DIRECTOR OF NURSING Work Phone: [facility] 04-16-2025 10:47-0400 Heart rate 68 /min Mariana Acuña SURVEYING TECHNICIAN - DIRECTOR OF NURSING Work Phone: [facility] 04-16-2025 10:47-0400 Systolic blood pressure 107 mm[Hg] Mariana Acuña SURVEYING TECHNICIAN - DIRECTOR OF NURSING Work Phone: [facility] 03-06-2025 09:50-0400 Body height 162.6 cm Mariana Acuña SURVEYING TECHNICIAN - DIRECTOR OF NURSING Work Phone: [facility] 03-06-2025 09:50-0400 Body mass index (BMI) [Ratio] 20.25 kg/m2 Mariana Acuña SURVEYING TECHNICIAN - DIRECTOR OF NURSING Work Phone: [facility] 03-06-2025 09:50-0400 Body temperature 97.9 [degF] Mariana Acuña SURVEYING TECHNICIAN - DIRECTOR OF NURSING Work Phone: [facility] 03-06-2025 09:50-0400 Body weight 53.52 kg Mariana Acuña SURVEYING TECHNICIAN - DIRECTOR OF NURSING Work Phone: [facility] 03-06-2025 09:50-0400 Diastolic blood pressure 84 mm[Hg] Mariana Acuña SURVEYING TECHNICIAN - DIRECTOR OF NURSING Work Phone: [facility] 03-06-2025 09:50-0400 Heart rate 84 /min Mariana Acuña SURVEYING TECHNICIAN - DIRECTOR OF NURSING Work Phone: [facility] 03-06-2025 09:50-0400 Systolic blood pressure 114 mm[Hg] Mariana Acuña SURVEYING TECHNICIAN - DIRECTOR OF NURSING Work Phone: [facility] 01-23-2025 09:59-0400 Body mass index (BMI) [Ratio] 20.49 kg/m2 Mariana Acuña SURVEYING TECHNICIAN - DIRECTOR OF NURSING Work Phone: [facility] 01-23-2025 09:59-0400 Body temperature 98.2 [degF] Mariana Acuña SURVEYING TECHNICIAN - DIRECTOR OF NURSING Work Phone: [facility] 01-23-2025 09:59-0400 Body weight 54.16 kg Mariana Acuña SURVEYING TECHNICIAN - DIRECTOR OF NURSING Work Phone: [facility] 01-23-2025 09:59-0400 Diastolic blood pressure 72 mm[Hg] Mariana Acuña SURVEYING TECHNICIAN - DIRECTOR OF NURSING Work Phone: [facility] 01-23-2025 09:59-0400 Heart rate 85 /min Mariana Acuña SURVEYING TECHNICIAN - DIRECTOR OF NURSING Work Phone: [facility] 01-23-2025 09:59-0400 Systolic blood pressure 131 mm[Hg] Mariana Weaversey SURVEYING TECHNICIAN - DIRECTOR OF NURSING Work Phone: [facility] 01-19-2025 13:08-0400 Body temperature 97.2 [degF] Dr. Mark Shabazz MD Work Phone: [facility] 01-19-2025 13:08-0400 Diastolic blood pressure 69 mm[Hg] Dr. Mark Shabazz MD Work Phone: [facility] 01-19-2025 13:08-0400 Heart rate 70 /min Dr. Mark Shabazz MD Work Phone: [facility] 01-19-2025 13:08-0400 Respiratory rate 16 /min Dr. Mark Shabazz MD Work Phone: [facility] 01-19-2025 13:08-0400 SaO2% (BldA) [Mass fraction] 96 % Dr. Mark Shabazz MD Work Phone: [facility] 01-19-2025 13:08-0400 Systolic blood pressure 116 mm[Hg] Dr. Mark Shabazz MD Work Phone: 6(146)066-726978 [place] [address] 01-19-2025 10:57-0400 Body height 162.[address] Mark Shabazz MD Work Phone: 5(150)098-884601 [place] [address] 01-19-2025 10:57-0400 Body mass index (BMI) [Ratio] 20.4 kg/m2 Dr. Mark Shabazz MD Work Phone: 7(248)351-802801 [place] [address] 01-19-2025 10:57-0400 Body weight [address] Mark Shabazz MD Work Phone: 5(725)821-853101 [place] [address] 01-09-2025 11:22-0400 Body height 162.[address] Mark Shabazz MD Work Phone: 9(607)342-444601 [place] [address] 01-09-2025 11:22-0400 Body mass index (BMI) [Ratio] 20.4 kg/m2 Dr. Mark Shabazz MD Work Phone: 8(709)736-144801 [place] [address] 01-09-2025 11:22-0400 Body weight 53.[address] Mark Shabazz MD Work Phone: 5(626)008-328778 [place] [address] 01-09-2025 11:22-0400 Diastolic blood pressure 62 mm[Hg] Dr. Mark Shabazz MD Work Phone: 1(607)934-293801 [place] [address] 01-09-2025 11:22-0400 Systolic blood pressure 108 mm[Hg] Dr. Mark Shabazz MD Work Phone: 4(129)393-493278 [place] [address] 01-03-2025 14:23-0400 Diastolic blood pressure 66 mm[Hg] Dr. Mark Shabazz MD Work Phone: 6(020)317-613501 [place] [address] 01-03-2025 14:23-0400 Heart rate 77 /min Dr. Mark Shabazz MD Work Phone: 7(754)621-662978 [place] [address] 01-03-2025 14:23-0400 Respiratory rate 16 /min Dr. Mark Shabazz MD Work Phone: 4(454)158-703801 [place] [address] 01-03-2025 14:23-0400 SaO2% (BldA) [Mass fraction] 98 % Dr. Mark Shabazz MD Work Phone: 6(540)532-624478 [place] [address] 01-03-2025 14:23-0400 Systolic blood pressure 151 mm[Hg] Dr. Mark Shabazz MD Work Phone: 0(442)941-647301 [place] [address] 01-03-2025 12:30-0400 Body mass index (BMI) [Ratio] 19.7 kg/m2 Dr. Mark Shabazz MD Work Phone: 1(597)850-274678 [place] [address] 01-03-2025 12:30-0400 Body weight 52.[address] Mark Shabazz MD Work Phone: 2(144)064-663901 [place] [address] 12-25-2024 15:07-0400 Body mass index (BMI) [Ratio] 20.5 kg/m2 Dr. Mark Shabazz MD Work Phone: 6(060)447-895578 [place] [address] 12-25-2024 15:07-0400 Body weight 54.[address] Mark Shabazz MD Work Phone: 1(174)153-519878 [place] [address] 12-25-2024 15:07-0400 Diastolic blood pressure 68 mm[Hg] Dr. Mark Shabazz MD Work Phone: 3(951)286-584201 [place] [address] 12-25-2024 15:07-0400 Heart rate 64 /min Dr. Mark Shabazz MD Work Phone: 3(751)259-188201 [address] [place] [address] 12-25-2024 15:07-0400 Respiratory rate 17 /min Dr. Mark Shabazz MD Work Phone: [phone] [place] [address] 12-25-2024 15:07-0400 SaO2% (BldA) [Mass fraction] 99 % Dr. Mark Shabazz MD Work Phone: [facility] 12-25-2024 15:07-0400 Systolic blood pressure 110 mm[Hg] Dr. Mark Shabazz MD Work Phone: [facility] 12-12-2024 10:04-0400 Body height 162.6 cm Mariana Weaversey SURVEYING TECHNICIAN - DIRECTOR OF NURSING Work Phone: [facility] 12-12-2024 10:04-0400 Body mass index (BMI) [Ratio] 19.22 kg/m2 Mariana Domenico SURVEYING TECHNICIAN - DIRECTOR OF NURSING Work Phone: [facility] 12-12-2024 10:04-0400 Body weight 50.8 kg Mariana Domenico SURVEYING TECHNICIAN - DIRECTOR OF NURSING Work Phone: [facility] 12-12-2024 10:04-0400 Diastolic blood pressure 70 mm[Hg] Mariana Domenico SURVEYING TECHNICIAN - DIRECTOR OF NURSING Work Phone: [facility] 12-12-2024 10:04-0400 Systolic blood pressure 114 mm[Hg] Mariana Domenico SURVEYING TECHNICIAN - DIRECTOR OF NURSING Work Phone: [facility] 11-22-2024 09:46-0400 Body height 162.[address] Mark Shabazz MD Work Phone: [facility] 11-22-2024 09:46-0400 Body mass index (BMI) [Ratio] 21.2 kg/m2 Dr. Mark Shabazz MD Work Phone: [facility] 11-22-2024 09:46-0400 Body weight 56.[address] Mark Shabazz MD Work Phone: [facility] 11-22-2024 09:46-0400 Diastolic blood pressure 86 mm[Hg] Dr. Mark Shabazz MD Work Phone: [facility] 11-22-2024 09:46-0400 Heart rate 71 /min Dr. Mark Shabazz MD Work Phone: [facility] 11-22-2024 09:46-0400 Respiratory rate 17 /min Dr. Mark hSabazz MD Work Phone: [facility] 11-22-2024 09:46-0400 SaO2% (BldA) [Mass fraction] 100 % Dr. Mark Shabazz MD Work Phone: [facility] 11-22-2024 09:46-0400 Systolic blood pressure 124 mm[Hg] Dr. Mark Shabazz MD Work Phone: [facility] 11-01-2024 15:36-0400 Body height 162.[address] Mark Shabazz MD Work Phone: [facility] 10-31-2024 09:31-0400 Body height 162.6 cm Mariana Domenico SURVEYING TECHNICIAN - DIRECTOR OF NURSING Work Phone: [facility] 10-31-2024 09:31-0400 Body mass index (BMI) [Ratio] 19.22 kg/m2 Mariana Domenico SURVEYING TECHNICIAN - DIRECTOR OF NURSING Work Phone: [facility] 10-31-2024 09:31-0400 Body weight 50.8 kg Mariana Domenico SURVEYING TECHNICIAN - DIRECTOR OF NURSING Work Phone: [facility] 10-31-2024 09:31-0400 Diastolic blood pressure 78 mm[Hg] Mariana Domenico SURVEYING TECHNICIAN - DIRECTOR OF NURSING Work Phone: [facility] 10-31-2024 09:31-0400 Systolic blood pressure 118 mm[Hg] Mariana Domenico SURVEYING TECHNICIAN - DIRECTOR OF NURSING Work Phone: [facility] 09-19-2024 08:07-0500 Body height 162.6 cm Marianamagaly Acuña SURVEYING TECHNICIAN - DIRECTOR OF NURSING Work Phone: [facility] 09-19-2024 08:07-0500 Body mass index (BMI) [Ratio] 19.22 kg/m2 Marianamagaly Acuña SURVEYING TECHNICIAN - DIRECTOR OF NURSING Work Phone: [facility] 09-19-2024 08:07-0500 Body temperature 98.1 [degF] Mariana Acuña SURVEYING TECHNICIAN - DIRECTOR OF NURSING Work Phone: [facility] 09-19-2024 08:07-0500 Body weight 50.8 kg Mariana Acuña SURVEYING TECHNICIAN - DIRECTOR OF NURSING Work Phone: [facility] 09-19-2024 08:07-0500 Diastolic blood pressure 77 mm[Hg] Mariana Acuña SURVEYING TECHNICIAN - DIRECTOR OF NURSING Work Phone: [facility] 09-19-2024 08:07-0500 Heart rate 69 /min Mariana Acuña SURVEYING TECHNICIAN - DIRECTOR OF NURSING Work Phone: [facility] 09-19-2024 08:07-0500 Systolic blood pressure 121 mm[Hg] Mariana Acuña SURVEYING TECHNICIAN - DIRECTOR OF NURSING Work Phone: [facility] 06-29-2024 14:41-0500 Body temperature 97.9 [degF] Mariana Acuña SURVEYING TECHNICIAN - DIRECTOR OF NURSING Work Phone: [facility] 06-29-2024 14:41-0500 Diastolic blood pressure 78 mm[Hg] Mariana Acuña SURVEYING TECHNICIAN - DIRECTOR OF NURSING Work Phone: [facility] 06-29-2024 14:41-0500 Heart rate 72 /min Mariana Acuña SURVEYING TECHNICIAN - DIRECTOR OF NURSING Work Phone: [facility] 06-29-2024 14:41-0500 Systolic blood pressure 116 mm[Hg] Mariana Acuña SURVEYING TECHNICIAN - DIRECTOR OF NURSING Work Phone: [facility] 06-05-2024 14:07-0400 Body height 162.6 cm Mariana Acuña SURVEYING TECHNICIAN - DIRECTOR OF NURSING Work Phone: [facility] 06-05-2024 14:07-0400 Body mass index (BMI) [Ratio] 21.8 kg/m2 Mariana Acuña SURVEYING TECHNICIAN - DIRECTOR OF NURSING Work Phone: [facility] 06-05-2024 14:07-0400 Body temperature 97.39 [degF] Mariana Weaversey SURVEYING TECHNICIAN - DIRECTOR OF NURSING Work Phone: [facility] 06-05-2024 14:07-0400 Body weight 57.61 kg Mariana Acuña SURVEYING TECHNICIAN - DIRECTOR OF NURSING Work Phone: [facility] 06-05-2024 14:07-0400 Diastolic blood pressure 86 mm[Hg] Mariana Weaversey SURVEYING TECHNICIAN - DIRECTOR OF NURSING Work Phone: [facility] 06-05-2024 14:07-0400 Heart rate 75 /min Mariana Acuña SURVEYING TECHNICIAN - DIRECTOR OF NURSING Work Phone: [facility] 06-05-2024 14:07-0400 Systolic blood pressure 121 mm[Hg] Mariana Acuña SURVEYING TECHNICIAN - DIRECTOR OF NURSING Work Phone: [facility] 02-16-2024 09:04-0400 Body temperature 98.1 [degF] Mariana Weaversey SURVEYING TECHNICIAN - DIRECTOR OF NURSING Work Phone: [facility] 02-16-2024 09:04-0400 Diastolic blood pressure 80 mm[Hg] Mariana Acuña SURVEYING TECHNICIAN - DIRECTOR OF NURSING Work Phone: [facility] 02-16-2024 09:04-0400 Heart rate 65 /min Mariana Acuña SURVEYING TECHNICIAN - DIRECTOR OF NURSING Work Phone: [facility] 02-16-2024 09:04-0400 Systolic blood pressure 127 mm[Hg] Mariana [place] SURVEYING TECHNICIAN - DIRECTOR OF NURSING Work Phone: [facility] 01-04-2024 09:56-0400 Body temperature 98.1 [degF] Mariana Acuña SURVEYING TECHNICIAN - DIRECTOR OF NURSING Work Phone: [facility] 01-04-2024 09:56-0400 Diastolic blood pressure 83 mm[Hg] Mariana Weaversey SURVEYING TECHNICIAN - DIRECTOR OF NURSING Work Phone: [facility] 01-04-2024 09:56-0400 Heart rate 76 /min Mariana Domenico SURVEYING TECHNICIAN - DIRECTOR OF NURSING Work Phone: [facility] 01-04-2024 09:56-0400 Systolic blood pressure 130 mm[Hg] Mariana Acuña SURVEYING TECHNICIAN - DIRECTOR OF NURSING Work Phone: [facility] 11-23-2023 13:30-0400 Body temperature 98.1 [degF] Mariana Acuña SURVEYING TECHNICIAN - DIRECTOR OF NURSING Work Phone: [facility] 11-23-2023 13:30-0400 Diastolic blood pressure 78 mm[Hg] Mariana Acuña SURVEYING TECHNICIAN - DIRECTOR OF NURSING Work Phone: [facility] 11-23-2023 13:30-0400 Heart rate 77 /min Mariana Acuña SURVEYING TECHNICIAN - DIRECTOR OF NURSING Work Phone: [facility] 11-23-2023 13:30-0400 Systolic blood pressure 108 mm[Hg] Mariana Acuña SURVEYING TECHNICIAN - DIRECTOR OF NURSING Work Phone: [facility] 10-13-2023 12:43-0500 Body temperature 96.8 [degF] ROXANA CLARK MD [facility] 10-13-2023 12:43-0500 Diastolic Blood Pressure Non-Invasive 77 mm[Hg] ROXANA CLARK MD [facility] 10-13-2023 12:43-0500 Heart rate 60 /min ROXANA CLARK MD [facility] 10-13-2023 12:43-0500 Reason For Taking VItal Signs ROXANA CLARK MD [facility] 10-13-2023 12:43-0500 Respiratory rate 16 /min ROXANA CLARK MD [facility] 10-13-2023 12:43-0500 Systolic Blood Pressure Non-Invasive 129 mm[Hg] ROXANA CLARK MD [facility] 10-13-2023 12:19-0500 Diastolic Blood Pressure Non-Invasive 81 mm[Hg] ROXANA CLARK MD [facility] 10-13-2023 12:19-0500 Heart rate 66 /min ROXANA CLARK MD [facility] 10-13-2023 12:19-0500 Mean blood pressure 97 mm[Hg] ROXANA CLARK MD [facility] 10-13-2023 12:19-0500 Respiratory rate 16 /min ROXANA CLARK MD [address] [place] [address] 10-13-2023 12:19-0500 Systolic Blood Pressure Non-Invasive 133 mm[Hg] ROXANA CLARK MD [address] 10-13-2023 12:04-0500 Body temperature 97.34 [degF] ROXANA CLARK MD [address] 10-13-2023 12:04-0500 Diastolic Blood Pressure Non-Invasive 87 mm[Hg] ROXANA CLARK MD [address] 10-13-2023 12:04-0500 Heart rate 69 /min ROXANA CLARK MD [address] 10-13-2023 12:04-0500 Mean blood pressure 98 mm[Hg] ROXANA CLARK MD [address] 10-13-2023 12:04-0500 Respiratory rate 14 /min ROXANA CLARK MD [address] [place] [address] 10-13-2023 12:04-0500 Systolic Blood Pressure Non-Invasive 122 mm[Hg] ROXANA CLARK MD [address] [place] [address] 10-13-2023 11:55-0500 Heart rate 69 /min ROXANA CLARK MD [address] 10-13-2023 11:55-0500 Respiratory Rate - Anes 18 br/min ROXANA CLARK MD [address] 10-13-2023 11:50-0500 Respiratory Rate - Anes 17 br/min ROXANA CLARK MD [address] [place] [address] 10-13-2023 11:45-0500 Respiratory Rate - Anes 13 br/min ROXANA CLARK MD [facility] 10-13-2023 09:27-0500 Body height 162.6 cm ROXANA CLARK MD [facility] 10-13-2023 09:27-0500 Body temperature 97.34 [degF] ROXANA CLARK MD [facility] 10-13-2023 09:27-0500 Body weight 49.5 kg ROXANA CLARK MD [facility] 10-13-2023 09:27-0500 Heart rate 58 /min ROXANA CLARK MD [facility] 10-04-2023 14:49-0500 Body temperature 97.3 [degF] Mariana Acuña SURVEYING TECHNICIAN - DIRECTOR OF NURSING Work Phone: [facility] 10-04-2023 14:49-0500 Diastolic blood pressure 74 mm[Hg] Mariana Acuña SURVEYING TECHNICIAN - DIRECTOR OF NURSING Work Phone: [facility] 10-04-2023 14:49-0500 Heart rate 64 /min Mariana Acuña SURVEYING TECHNICIAN - DIRECTOR OF NURSING Work Phone: [facility] 10-04-2023 14:49-0500 Systolic blood pressure 120 mm[Hg] Mariana Acuña SURVEYING TECHNICIAN - DIRECTOR OF NURSING Work Phone: [facility] 08-17-2023 08:42-0500 Body temperature 98.1 [degF] Mariana Acuña SURVEYING TECHNICIAN - DIRECTOR OF NURSING Work Phone: [facility] 08-17-2023 08:42-0500 Diastolic blood pressure 82 mm[Hg] Mariana Acuña SURVEYING TECHNICIAN - DIRECTOR OF NURSING Work Phone: [facility] 08-17-2023 08:42-0500 Heart rate 68 /min Mariana Acuña SURVEYING TECHNICIAN - DIRECTOR OF NURSING Work Phone: [facility] 08-17-2023 08:42-0500 Systolic blood pressure 113 mm[Hg] Mariana Acuña SURVEYING TECHNICIAN - DIRECTOR OF NURSING Work Phone: [facility] 06-25-2023 09:57-0400 Body temperature 97.2 [degF] Mariana Acuña SURVEYING TECHNICIAN - DIRECTOR OF NURSING Work Phone: [facility] 06-25-2023 09:57-0400 Diastolic blood pressure 86 mm[Hg] Mariana Acuña SURVEYING TECHNICIAN - DIRECTOR OF NURSING Work Phone: [facility] 06-25-2023 09:57-0400 Heart rate 86 /min Mariana Acuña SURVEYING TECHNICIAN - DIRECTOR OF NURSING Work Phone: [facility] 06-25-2023 09:57-0400 Systolic blood pressure 133 mm[Hg] Mariana Acuña SURVEYING TECHNICIAN - DIRECTOR OF NURSING Work Phone: [facility] 05-17-2023 11:43-0400 Body height 162.6 cm Mariana Weaversey SURVEYING TECHNICIAN - DIRECTOR OF NURSING Work Phone: [facility] 05-17-2023 11:43-0400 Body mass index (BMI) [Ratio] 21.8 kg/m2 Mariana Acuña SURVEYING TECHNICIAN - DIRECTOR OF NURSING Work Phone: [facility] 05-17-2023 11:43-0400 Body temperature 97.81 [degF] Mariana Acuña SURVEYING TECHNICIAN - DIRECTOR OF NURSING Work Phone: [facility] 05-17-2023 11:43-0400 Body weight 57.61 kg Mariana Acuña SURVEYING TECHNICIAN - DIRECTOR OF NURSING Work Phone: [facility] 05-17-2023 11:43-0400 Diastolic blood pressure 80 mm[Hg] Mariana Domenico SURVEYING TECHNICIAN - DIRECTOR OF NURSING Work Phone: [facility] 05-17-2023 11:43-0400 Heart rate 64 /min Mariana Domenico SURVEYING TECHNICIAN - DIRECTOR OF NURSING Work Phone: [facility] 05-17-2023 11:43-0400 Systolic blood pressure 120 mm[Hg] Marianapriya Acuña SURVEYING TECHNICIAN - DIRECTOR OF NURSING Work Phone: [facility] 03-31-2023 13:57-0400 Body height 162.6 cm Mariana Acuña SURVEYING TECHNICIAN - DIRECTOR OF NURSING Work Phone: [facility] 03-31-2023 13:57-0400 Body mass index (BMI) [Ratio] 21.8 kg/m2 Mariana Acuña SURVEYING TECHNICIAN - DIRECTOR OF NURSING Work Phone: [facility] 03-31-2023 13:57-0400 Body weight 57.61 kg Mariana Acuña SURVEYING TECHNICIAN - DIRECTOR OF NURSING Work Phone: [facility] 03-31-2023 13:57-0400 Diastolic blood pressure 88 mm[Hg] Mariana Acuña SURVEYING TECHNICIAN - DIRECTOR OF NURSING Work Phone: [facility] 03-31-2023 13:57-0400 Heart rate 90 /min Mariana Acuña SURVEYING TECHNICIAN - DIRECTOR OF NURSING Work Phone: [facility] 03-31-2023 13:57-0400 Systolic blood pressure 130 mm[Hg] Mariana Acuña SURVEYING TECHNICIAN - DIRECTOR OF NURSING Work Phone: [facility] 02-10-2023 13:02-0400 Body height 162.6 cm Mariana Acuña SURVEYING TECHNICIAN - DIRECTOR OF NURSING Work Phone: [facility] 02-10-2023 13:02-0400 Body mass index (BMI) [Ratio] 21.8 kg/m2 Mariana Acuña SURVEYING TECHNICIAN - DIRECTOR OF NURSING Work Phone: [facility] 02-10-2023 13:02-0400 Body temperature 98.29 [degF] Mariana Acuña SURVEYING TECHNICIAN - DIRECTOR OF NURSING Work Phone: [facility] 02-10-2023 13:02-0400 Body weight 57.61 kg Mariana Acuña SURVEYING TECHNICIAN - DIRECTOR OF NURSING Work Phone: [facility] 02-10-2023 13:02-0400 Diastolic blood pressure 72 mm[Hg] Mariana Acuña SURVEYING TECHNICIAN - DIRECTOR OF NURSING Work Phone: [facility] 02-10-2023 13:02-0400 Heart rate 61 /min Mariana Acuña SURVEYING TECHNICIAN - DIRECTOR OF NURSING Work Phone: [facility] 02-10-2023 13:02-0400 Systolic blood pressure 118 mm[Hg] Mariana Acuña SURVEYING TECHNICIAN - DIRECTOR OF NURSING Work Phone: [facility] 11-04-2022 14:59-0400 Body height 162.6 cm Mariana Acuña SURVEYING TECHNICIAN - DIRECTOR OF NURSING Work Phone: [facility] 11-04-2022 14:59-0400 Body mass index (BMI) [Ratio] 21.9 kg/m2 Mariana Acuña SURVEYING TECHNICIAN - DIRECTOR OF NURSING Work Phone: [facility] 11-04-2022 14:59-0400 Body temperature 96.8 [degF] Mariana Acuña SURVEYING TECHNICIAN - DIRECTOR OF NURSING Work Phone: [facility] 11-04-2022 14:59-0400 Body weight 57.88 kg Mariana Acuña SURVEYING TECHNICIAN - DIRECTOR OF NURSING Work Phone: [facility] 11-04-2022 14:59-0400 Diastolic blood pressure 72 mm[Hg] Mariana Acuña SURVEYING TECHNICIAN - DIRECTOR OF NURSING Work Phone: [facility] 11-04-2022 14:59-0400 Heart rate 70 /min Mariana Acuña SURVEYING TECHNICIAN - DIRECTOR OF NURSING Work Phone: [facility] 11-04-2022 14:59-0400 Systolic blood pressure 113 mm[Hg] Mariana Acuña SURVEYING TECHNICIAN - DIRECTOR OF NURSING Work Phone: [facility] Encounters Encounter Date Encounter Type Care Provider Facility Start: 04-30-2025 End: 04-30-[address] Mirna Gunderson DC -[facility] Work Phone: Start: 04-30-2025 End: 04-30-[address] Mark Shabazz MD Work Phone: -[facility] Start: 04-24-2025 End: 04-24-[address] Mirna Gunderson DC -[facility] Work Phone: Start: 04-24-2025 End: 04-24-[address] Mark Shabazz MD Work Phone: [facility] Start: 04-16-2025 End: 04-16-[address] Mirna Gunderson DC -[facility] Work Phone: Start: 04-16-2025 End: 04-16-[address] Mark Shabazz MD Work Phone: [facility] Start: 04-16-2025 End: 04-16-2025 ambulatory [facility] Start: 04-16-2025 End: 04-16-2025 Office outpatient visit 15 minutes [facility] SURVEYING TECHNICIAN - DIRECTOR OF NURSING Work Phone: [facility] Comment on above: Intractable chronic migraine without aura and without status migrainosus (Primary Dx); Myofascial pain Start: 04-03-2025 End: 04-03-[address] Mirna Gunderson DC -[facility] Work Phone: Start: 04-03-2025 End: 04-03-[address] Mark Shabazz MD Work Phone: [facility] Start: 03-29-2025 End: 03-29-[address] Mirna Gunderson DC -[facility] Work Phone: Start: 03-29-2025 End: 03-29-[address] Mark Shabazz MD Work Phone: [facility] Start: 03-22-2025 End: 03-22-[address] Mirna Gunderson DC -[facility] Work Phone: Start: 03-22-2025 End: 03-22-[address] Mark Shabazz MD Work Phone: [facility] Start: 03-15-2025 End: 03-15-[address] Mirna Gunderson DC -[facility] Work Phone: Start: 03-15-2025 End: 03-15-[address] Mark Shabazz MD Work Phone: [facility] Start: 03-06-2025 End: 03-06-2025 Patient encounter procedure Mariana Acuña SURVEYING TECHNICIAN - [facility] Work Phone: [facility] Comment on above: Intractable chronic migraine without aura and without status migrainosus (Primary Dx); Myofascial pain Start: 03-06-2025 End: 03-06-2025 ambulatory [facility] Start: 02-22-2025 End: 02-22-[address] Mirna Gunderson DC -[facility] Work Phone: Start: 02-22-2025 End: 02-22-[address] Mark Shabazz MD Work Phone: [facility] Start: 02-21-2025 End: 02-21-[address] Mark Shabazz MD Work Phone: -Laboratory Start: 02-21-2025 End: 02-21-2025 Patient encounter procedure Unruly Toscano DO -Laboratory Work Phone: Start: 02-20-2025 End: 02-20-2025 Patient encounter procedure Unruly Toscano DO -[facility] Work Phone: Start: 02-20-2025 End: 02-21-[address] Mark Shabazz MD Work Phone: [facility] Start: 02-06-2025 End: 02-06-[address] Mirna Gunderson DC -[facility] Work Phone: Start: 02-06-2025 End: 02-06-[address] Mark Shabazz MD Work Phone: [facility] Work Phone: Start: 02-06-2025 End: 02-06-[address] Mark Shabazz MD Work Phone: [facility] Work Phone: Start: 02-06-2025 End: 02-06-2025 Patient encounter procedure Unruly Toscano -Nuclear [facility] Work Phone: Start: 02-06-2025 End: 02-06-2025 ambulatory Mark Shabazz Facility:[facility] Start: 01-29-2025 End: 01-29-[address] Mirna Gunderson DC -[facility] Work Phone: Start: 01-29-2025 End: 01-29-[address] Mark Shabazz MD Work Phone: [facility] Work Phone: Start: 01-23-2025 End: 01-23-[address] Mirna Gunderson DC -[facility] Work Phone: Start: 01-23-2025 End: 01-23-[address] Mark Shabazz MD Work Phone: [facility] Work Phone: Start: 01-23-2025 End: 01-23-2025 Office outpatient visit 15 minutes Mariana Domenico SURVEYING TECHNICIAN - DIRECTOR OF NURSING Work Phone: [facility] Neurology [facility] Comment on above: Intractable chronic migraine without aura and without status migrainosus (Primary Dx); Myofascial pain Start: 01-23-2025 End: 01-23-2025 ambulatory MARIANA ACUÑA [facility] Start: 01-19-2025 End: 01-19-2025 Admission to same day surgery center Dr. Diann Perez MD -[facility] Start: 01-19-2025 End: 01-19-[address] Mark Shabazz MD Work Phone: [facility] Work Phone: Start: 01-19-2025 Non-patient / Non-visit Dr. Diann Perez MD -[facility] Start: 01-09-2025 End: 01-09-[address] Mirna Gunderson DC -[facility] Work Phone: Start: 01-09-2025 End: 01-09-[address] Mark Shabazz MD Work Phone: [facility] Work Phone: Start: 01-09-2025 End: 01-09-2025 ambulatory Mirna Gunderson Facility:[facility] Start: 01-03-2025 End: 01-03-2025 Patient encounter procedure Unruly Toscano DO -[facility] Work Phone: Start: 01-03-2025 End: 01-03-2025 ambulatory Unruly Toscano Facility:[facility] Start: 12-25-2024 End: 12-25-[address] Diann Perez MD -[facility] Work Phone: Start: 12-25-2024 End: 12-25-2024 ambulatory Diann Perez Facility:[facility] Start: 12-12-2024 End: 12-12-2024 Patient encounter procedure Mariana Domenico SURVEYING TECHNICIAN - DIRECTOR OF NURSING Work Phone: [facility] Comment on above: Intractable chronic migraine without aura and without status migrainosus (Primary Dx); Myofascial pain Start: 12-12-2024 End: 12-12-2024 ambulatory MARIANA ACUÑA [facility] Start: 11-28-2024 End: 11-28-[address] Mark Shabazz MD Work Phone: [facility] Work Phone: Start: 11-28-2024 End: 11-28-[address] Diann Perez MD -[facility] Work Phone: Start: 11-28-2024 End: 11-28-2024 [facility] Start: 11-22-2024 End: 11-22-[address] Diann Perez MD -[facility] Work Phone: Start: 11-22-2024 End: 11-22-2024 [facility] Start: 11-14-2024 End: 11-14-[address] Mark Shabazz MD Work Phone: [facility] Work Phone: Start: 11-14-2024 End: 11-14-2024 Patient encounter procedure Maryjane STEVENSON -Outpatient Breast [facility] Work Phone: Start: 11-14-2024 End: 11-14-2024 ambulatory Maryjane Alvarado Facility:[facility] Start: 11-01-2024 End: 11-01-2024 Patient encounter procedure Mariana Cortez NP-C -[facility] Work Phone: Start: 11-01-2024 End: 11-01-[address] Mark Shabazz MD Work Phone: [facility] Work Phone: Start: 10-31-2024 End: 10-31-2024 Office outpatient visit 15 minutes Mariana Acuña SURVEYING TECHNICIAN - DIRECTOR OF NURSING Work Phone: [facility] Neurology [facility] Comment on above: Intractable chronic migraine without aura and without status migrainosus (Primary Dx); Myofascial pain Start: 10-31-2024 End: 11-01-2024 ambulatory [facility] Start: 09-19-2024 End: 09-19-2024 ambulatory [facility] Start: 09-19-2024 End: 09-19-2024 Patient encounter procedure Marianamagaly Acuña APRN - DIRECTOR OF NURSING Work Phone: [facility] Comment on above: Intractable chronic migraine without aura and without status migrainosus (Primary Dx); Myofascial pain Start: 08-17-2024 End: 09-19-2024 Telephone encounter Mariana Acuña [place] - DIRECTOR OF NURSING Work Phone: [facility] Comment on above: Procedure (Botox ) Start: 08-15-2024 End: 08-15-2024 Patient encounter procedure Jayla Dixon TANK CAR RECONDITIONER-C -Laboratory, Specimen Work Phone: Start: 08-15-2024 End: 08-15-2024 ambulatory Jayla Dixon Facility:[facility] Start: 06-29-2024 End: 06-29-2024 Office outpatient visit 15 minutes Mariana Acuña APRN - DIRECTOR OF NURSING Work Phone: [facility] Comment on above: Myofascial pain (Liss nikolay Dx); Intractable chronic migraine without aura and without status migrainosus Start: 06-29-2024 End: 07-28-2024 [facility]ulatory [facility] Start: 06-29-2024 End: 07-28-2024 Patient encounter procedure [facility] Start: 06-23-2024 ambulatory Health Risk Assessment Facility:[facility] Start: 06-23-2024 End: 06-23-2024 ambulatory Jayla Dixon Facility:[facility] Start: 06-13-2024 ambulatory Unruly Toscano Facility :[facility] Start: 06-13-2024 End: 06-13-2024 ambulatory Unruly Pattison Facility:[facility] Start: 06-05-2024 End: 06-05-2024 Patient encounter procedure Mariana Domenico GUTHRIE - DIRECTOR OF NURSING Work Phone: [facility] Comment on above: Intractable chronic migraine without aura and without status migrainosus (Primary Dx) Start: 06-05-2024 End: 06-06-2024 ambulatory MARIANA ACUÑA [facility] Start: 06-05-2024 End: 06-05-2024 ambulatory aJyla Dixon Facility:[facility] Start: 05-16-2024 End: 05-16-2024 ambulatory [facility] Facility:[facility] Start: 05-12-2024 End: 05-12-2024 Refill Wendi Starks PharmD [facility] [place] Comment on above: Intractable chronic migraine without aura and without status migrainosus (Primary Dx) Start: 04-13-2024 End: 04-14-2024 Telephone encounter Mariana Acuña APRN - DIRECTOR OF NURSING Work Phone: [facility] Clinical Communication Comment on above: Other (r/s Botox hanane t (new insurance)) Start: 02-16-2024 End: 02-16-2024 Patient encounter procedure Mariana Acuña APRN - DIRECTOR OF NURSING Work Phone: [facility] Comment on above: Intractable chronic migraine without aura and without status migrainosus (Primary Dx); Myofascial pain Start: 01-18-2024 ambulatory TRUDI MURGUIA MD Facil ity:B Start: 01-04-2024 End: 01-04-2024 Office outpatient visit 15 minutes Mariana Acuña APRN - DIRECTOR OF NURSING Work Phone: [facility] Comment on above: Myofascial pain (Liss nikolay Dx); Chronic migraine without aura, intractable, without status migrainosus Start: 12-31-2023 ambulatory TRUDI MURGUIA MD Facil ity:[facility] Start: 11-23-2023 End: 11-23-2023 Patient encounter procedure Mariana Acuña APRN - DIRECTOR OF NURSING Work Phone: [facility] Comment on above: Chronic migraine wit hout aura, intractable, without status migrainosus (Primary Dx) Start: 11-16-2023 End: 11-17-2023 ambulatory ROXANA CLARK MD Facility:[facility] Start: 11-16-2023 End: 11-16-2023 Patient encounter procedure ROXANA CLARK MD [facility] Start: 10-14-2023 Refill Mariana [place] SURVEYING TECHNICIAN - DIRECTOR OF NURSING Work Phone: [facility] Start: 10-13-2023 End: 10-13-2023 ambulatory TYRA SONI MD Facility:[facility] Start: 10-13-2023 End: 10-13-2023 SAME DAY STAY ROXANA CLARK MD [facility] Start: 10-04-2023 End: 10-04-2023 Office outpatient visit 10 minutes Mariana Acuña SURVEYING TECHNICIAN - DIRECTOR OF NURSING Work Phone: [facility] Comment on above: Chronic migraine wit hout aura, intractable, without status migrainosus (Primary Dx) Start: 09-24-2023 End: 09-25-2023 ambulatory ROXANA CLARK MD Facility:[facility] Start: 09-23-2023 End: 09-24-2023 ambulatory ELIAN NESBITT MD Facility:[facility] Start: 09-23-2023 End: 09-24-2023 Patient encounter procedure ELIAN NESBITT MD [facility] Start: 08-24-2023 Telephone encounter Mariana doll SURVEYING TECHNICIAN - DIRECTOR OF NURSING Work Phone: [facility] Comment on above: Med Management (Rx. Nurtec) Start: 08-17-2023 End: 08-22-[address] MARK SHABAZZ MD Facility:[facility] Start: 08-17-2023 End: 08-21-2023 Outreach Lab JOVANNI KOWALSKI NP [facility] Start: 08-17-2023 Telephone encounter Mariana doll SURVEYING TECHNICIAN - DIRECTOR OF NURSING Work Phone: [facility] Comment on above: Medication Problem Start: 08-17-2023 End: 08-17-2023 Patient encounter procedure Mariana Acuña SURVEYING TECHNICIAN - DIRECTOR OF NURSING Work Phone: [facility] Comment on above: Chronic migraine wit hout aura, intractable, without status migrainosus (Primary Dx) Start: 08-12-2023 End: 08-13-[address] MARK SHABAZZ MD Facility:[facility] Start: 08-05-2023 End: 08-06-2023 ambulatory ELIAN NESBITT MD Facility:[facility] Start: 08-05-2023 End: 08-06-2023 ambulatory TRUDI MURGUIA MD Facility:[facility] Start: 08-05-2023 End: 08-05-2023 Patient encounter procedure ELIAN NESBITT MD [facility] Start: 08-05-2023 End: 08-05-2023 Patient encounter procedure TRUDI MURGUIA MD [facility] Start: 07-28-2023 Telephone encounter Veronique Vargas [facility] Comment on above: Other Start: 06-25-2023 End: 06-25-2023 Office outpatient visit 10 minutes Marianamagaly Acuña SURVEYING TECHNICIAN - DIRECTOR OF NURSING Work Phone: [facility] Comment on above: Chronic migraine wit hout aura, intractable, without status migrainosus (Primary Dx) Start: 05-17-2023 End: 05-17-2023 Patient encounter procedure Marianamagaly Acuña SURVEYING TECHNICIAN - DIRECTOR OF NURSING Work Phone: [facility] Comment on above: Chronic migraine wit hout aura, intractable, without status migrainosus (Primary Dx) Start: 03-31-2023 End: 03-31-2023 Office outpatient visit 10 minutes Mariana Domenico SURVEYING TECHNICIAN - DIRECTOR OF NURSING Work Phone: [facility] Comment on above: Chronic migraine wit hout aura, intractable, without status migrainosus (Primary Dx) Start: 03-04-2023 End: 03-05-[address] MARK SHABAZZ MD Facility:[facility] Start: 03-04-2023 End: 03-04-[address] MARK SHABAZZ MD [facility] Start: 03-01-2023 End: 03-02-2023 ambulatory JORDAN GUILLEN MD Facility:[facility] Start: 03-01-2023 End: 03-01-2023 Patient encounter procedure JORDAN GUILLEN MD [facility] Start: 02-25-2023 Telephone encounter Mariana doll SURVEYING TECHNICIAN - DIRECTOR OF NURSING Work Phone: [facility] Comment on above: insurance Start: 02-10-2023 End: 02-10-2023 Patient encounter procedure Mariana Weaversey SURVEYING TECHNICIAN - DIRECTOR OF NURSING Work Phone: [facility] Comment on above: Chronic migraine wit hout aura, intractable, without status migrainosus (Primary Dx) Start: 01-27-2023 Refill Mariana Domenico SURVEYING TECHNICIAN - DIRECTOR OF NURSING Work Phone: [facility] Start: 01-15-2023 End: 01-15-2023 ambulatory [facility] Start: 01-15-2023 Encounter for genera l adult medical examination without abnormal findings [facility] Start: 11-26-2022 End: 11-26-2022 Patient encounter procedure NURYS WO ID REFERRING [facility] Start: 11-04-2022 End: 11-04-2022 Patient encounter procedure Mariana Acuña SURVEYING TECHNICIAN - DIRECTOR OF NURSING Work Phone: [facility] Comment on above: Chronic migraine wit hout aura, intractable, without status migrainosus (Primary Dx) Start: 01-28-2022 End: 01-28-2022 Patient encounter procedure [facility] Procedures Date Procedure Procedure Detail Performing Clinician Start: 02-21-[address] Fol[address] stimulating hormone measurement Dr. Mark Shabazz MD Work Phone: Comment on above: FEMALE:Follicular: 1.4 - 18.1 mIU/mLMidc ycle: 3.4 - 33.4 mIU/mLLuteal: 1.5 - 9.1 mIU/mLPost Menopause: 23.0 - 116.3 mIU/mLMALE: 1.4 - 18.1 mIU/mL Start: 02-21-[address] Mark Shabazz MD Work Phone: Comment on above: Test Ordered: [id number] Makenzie Syndr ome PanelTest(s) 842565-[id number] developed and its performance characteristicsdetermined by [employer]. It has not been cleared or approvedby the Food and Drug Administration.Result Comment [facility] Reference Range: .PDF report to be sent separatelyPerformed at: [facility] [id number], [place], [place] [id number] Director: Qian Dunn PhD, Phone: [phone] at: [facility] [employer] [id number] Director: Thai James PhD, Phone: [phone] Start: 02-21-[address] Matt Shabazz MD Work Phone: Comment on above: Follicular phase 0.1 - 0.9 Luteal phase 1.8 - 23.9 Ovulation phase 0.1 - 12.0 First trimester 11.0 - 44.3 Second trimester 25.4 - 83.3 Third trimester 58.7 - 214.0 Postmenopausal 0.0 - 0.1Performed at: [address] [id number] Director: Luis Barnett MD, Phone: [phone] at: [facility] HamiltonBxfarq[address] [place], [place] [id number] Director: Thai James PhD, Phone: [phone] Start: 02-06-2025 Radionuclide study of abdomen Dr. Damien Shabazz MD Work Phone: Start: 01-19-2025 Excisional biopsy of breast with preoperative localization Dr. Mark Shabazz MD Work Phone: Start: 01-09-2025 X-ray of cervical spine Dr. Mark Shabazz MD Work Phone: Start: 01-09-2025 X-ray of lumbosacral spine Dr. Chandler Shabazz MD Work Phone: Start: 01-03-2025 MRI of small intestine Dr. Mark Shabazz MD Work Phone: Start: 11-28-2024 MRI of bilateral breasts with contrast Dr. Mark Shabazz MD Work Phone: Start: 11-14-2024 End: 11-14-[address] Mark Shabazz MD Work Phone: Start: 11-14-[address] John Shabazz MD Work Phone: Start: 11-01-[address] Mark Shabazz MD Work Phone: Start: 11-01-2024 Vitamin D, 25-hydroxy measurement Dr. Shaun Shabazz MD Work Phone: Comment on above: Vitamin D StatusDeficiency: <20 ng/mL (5 0nmol/L)Insufficiency: 20-30 ng/mL (50-75 nmol/L)Sufficiency: 30-100 ng/mL (75-250 nmol/L)Toxicity: >100 ng/mL (>250 nmol/L) Start: 08-15-[address] Ana Luisa Shabazz MD Work Phone: Start: 08-15-[address] Mark Shabazz MD Work Phone: Start: 08-15-[address] Mark Shabazz MD Work Phone: Start: 08-15-2024 Ova OR parasites identification Dr. Ana Luisa Shabazz MD Work Phone: Start: 07-23-2023 Colonoscopy ROXANA CLARK MD Start: 01-28-2022 X-ray of lumbosacral spine Appendectomy PHY REFERRING Dilation and curettage ROXANA CLARK MD Comment on above: multiple H/O: hysterectomy History of hysterectomy Comment on above: 03/27/2019 H/O: surgery History of ovari an cystectomy H/O: surgery History of loop electrical excision procedure (LEEP) History of appendectomy History of appendectomy Comment on above: 03/27/2019,2022 History of reduction of breast H istory of bilateral breast reduction surgery Hysterectomy PHY REFERRING Loop electrosurgical excision procedure PHY REFERRING Lumpectomy of breast PHY REF ERRING Reduction mammoplasty, bilateral PHY REFERRING Plan of Treatment Date Care Activity Detail Author Start: 2056 RSV Immunization for Adults (1 - 1-dose 75+ series) RSV Immunization for Adults (1 - 1-dose 75+ series) [facility] Start: 2041 RSV Immunization age d 60 or older (1 - 1-dose 60+ series) RSV Immunization aged 60 or older (1 - 1-dose 60+ series) [facility] Start: 2031 Zoster Vaccines (1 of 2) Zoste r Vaccines (1 of 2) [facility] Start: 04-19-2027 DTaP/Tdap/Td Vaccine s (4 - Td or Tdap) DTaP/Tdap/Td Vaccines (4 - Td or Tdap) [facility] Start: 11-14-2025 Screening for malign ant neoplasm of breast Mammogram [facility] Start: 05-28-2025 End: 05-28-2025 Patient encounter procedure 05/28/2025 10:00 AM EDT Procedure Visit [address] [place] [address] Mariana Acuña APRN - DIRECTOR OF NURSING [address] [place] [address] [address] [place], [place] [id number] [facility] Start: 04-23-2025 Influenza vaccination S [facility] Start: 04-16-2025 End: 04-16-2025 Patient encounter procedure 04/16/2025 10:30 AM EDT Procedure Visit [address] [place] [address] Mariana Acuña APRN [address] [place] [address] [facility] Start: 03-06-2025 End: 03-06-2025 Patient encounter procedure 03/06/2025 10:00 AM EDT Procedure Visit [address] [place] [facility] [place] [phone] Mariana Acuña APRN [address] [place] [address] [facility] Start: 02-21-2025 Catecholamines [Moles/volume] in Plasma [facility] Start: 02-21-2025 Cyclic citrullinated peptide IgG Ab [Units/volume] in Serum or Plasma [facility] Start: 02-21-2025 Estrogen [Mass/volum e] in Serum or Plasma [facility] Start: 02-21-2025 Gastrin [Mass/volume ] in Serum or Plasma [facility] Start: 02-21-2025 Procedure [facility] Start: 02-21-[address] [facility] Start: 02-21-[address] [facility] Start: 02-21-2025 Vitamin D, 1,25-dihydroxy measurement [facility] Start: 01-23-2025 End: 01-23-2025 Patient encounter procedure 01/23/2025 10:00 AM EDT Office Visit [address] [place]vin [place] [phone] Mariana Acuña APRN [address] [place] [address] [facility] Start: 01-19-2025 Anes integ extremiti es ant trunk & perineum nos ANESTH SKIN EXT/PER/ATRUNK [facility] Start: 01-19-2025 Exc breast les preop plmt rad marker open 1 les EXCISION BREAST LESION [facility] Start: 01-19-2025 Patient [facility] Start: 01-09-2025 X-ray of cervical spine Cerv S pine [address] [facility] Start: 01-09-2025 X-ray of lumbosacral spine L/S Spine Min [address] [facility] Start: 01-09-2025 XR Cervical spine [address] [facility] Start: 01-09-2025 XR Spine Lumbar and Sacrum GE [address] [facility] Start: 01-03-2025 Following clinical pathway protocol [facility] Start: 12-12-2024 End: 12-12-2024 Patient encounter procedure 12/12/2024 10:00 AM EDT Procedure Visit [address] [place] [address] Mariana Acuña, SURVEYING TECHNICIAN - DIRECTOR OF NURSING [address] [place] [address] [place] [address] [facility] Start: 10-31-2024 End: 10-31-2024 Patient encounter procedure 10/31/2024 9:30 AM EDT Procedure Visit [address] [place] [address] Mariana Acuña, SURVEYING TECHNICIAN - DIRECTOR OF NURSING [address] [place] [address] [place] [address] [facility] Start: 09-05-2024 End: 09-05-2024 Patient encounter procedure 09/05/2024 1:30 PM EST Procedure Visit [address] [place] [address] Mariana Acuña, SURVEYING TECHNICIAN - DIRECTOR OF NURSING [address] [place] [address] [place] [address] [facility] Start: 08-31-2024 End: 08-31-2024 Patient encounter procedure 08/31/2024 11:30 AM EST Procedure Visit [facility] [address] [place] [address] Mariana Acuña APRN - DIRECTOR OF NURSING [address] [place] [address] [facility] Start: 06-29-2024 End: 06-29-2024 Patient encounter procedure 06/29/2024 2:30 PM EST Procedure Visit [address] [place] [address] Mariana Acuña, SURVEYING TECHNICIAN - DIRECTOR OF NURSING [address] [place] [address] [facility] Start: 05-17-2024 End: 05-17-2024 Patient encounter procedure 05/17/2024 3:00 PM EDT Procedure Visit [facility] [address] [place] [address] [place] [address] Mariana Acuña APRN - DIRECTOR OF NURSING [address] [place] [address] [place] [address] [facility] Start: 04-23-2024 COVID-19 Vaccine ( season) COVID-19 Vaccine ( season) [facility] Start: 04-23-2024 COVID-19 Vaccine ( season) COVID-19 Vaccine ( season) [facility] Start: 04-23-2024 Influenza vaccination [facility] Start: 03-29-2024 End: 03-29-2024 Patient encounter procedure [facility] Start: 02-16-2024 End: 02-16-2024 Patient encounter procedure 02/16/2024 9:00 AM EDT Procedure Visit [facility] [address] [place] [address] [place] [address] Mariana Acuña SURVEYING TECHNICIAN - DIRECTOR OF NURSING [address] [place] [address] [facility] Start: 01-04-2024 End: 01-04-2024 Patient encounter procedure 01/04/2024 3:15 PM EDT Procedure Visit [facility] [address] [place]vin [place] [address] Mariana Acuña, SURVEYING TECHNICIAN - DIRECTOR OF NURSING [address] [place] [address] [facility] Start: 11-23-2023 End: 11-23-2023 Patient encounter procedure 11/23/2023 1:30 PM EDT Procedure Visit [facility] [address] Arvin [place] [address] Mariana Acuña, SURVEYING TECHNICIAN - DIRECTOR OF NURSING [address] [place] [address] [facility] Start: 10-04-2023 End: 10-04-2023 Patient encounter procedure 10/04/2023 3:00 PM EST Procedure Visit [facility] [address] Arvin [place] [address] Mariana Acuña, SURVEYING TECHNICIAN - DIRECTOR OF NURSING [address] [place] [address] [facility] Start: 08-18-2023 End: 08-18-2023 Patient encounter procedure 08/18/2023 2:00 PM EST Procedure Visit [facility] [address] [place] [address] Mariana Acuña, SURVEYING TECHNICIAN - DIRECTOR OF NURSING [address] [place] [address] [facility] Start: 08-17-2023 End: 08-17-2023 Patient encounter procedure 08/17/2023 11:30 AM EST Procedure Visit [facility] [address] [place] [address] Mariana Acuña, SURVEYING TECHNICIAN - DIRECTOR OF NURSING [address] [place] [address] [facility] Start: 06-25-2023 End: 06-25-2023 Patient encounter procedure 06/25/2023 10:00 AM EDT Procedure Visit [facility] [address] [place] [address] Mariana Acuña, SURVEYING TECHNICIAN - DIRECTOR OF NURSING [address] [place] [address] [facility] Start: 05-17-2023 End: 05-17-2023 Patient encounter procedure [facility] Start: 05-14-2023 End: 05-14-2023 Patient encounter procedure 05/14/2023 1:00 PM EDT Procedure Visit [facility] [address] [place] [address] Mariana Acuña, SURVEYING TECHNICIAN - DIRECTOR OF NURSING [address] [place] [address] [facility] Start: 04-23-2023 COVID-19 Vaccine ( season) COVID-19 Vaccine ( season) [facility] Start: 04-23-2023 Influenza vaccination [facility] Start: 03-24-2023 End: 03-24-2023 Patient encounter procedure 03/24/2023 2:30 PM EDT Procedure Visit [facility] [address] [place] [phone] Mariana Acuña, SURVEYING TECHNICIAN - DIRECTOR OF NURSING [address] [place] [address] [facility] Start: 03-23-2023 End: 03-23-2023 Patient encounter procedure [facility] Start: 02-10-2023 End: 02-11-2024 MR Brain WO contrast MR brain wo contrast Imaging Routine Chronic migraine without aura, intractable, without status migrainosus Expected: 02/10/2023, Expires: 02/11/2024 [facility] [facility] Work Phone: Comment on above: Expected: 02/10/2023 , Expires: 02/11/2024 Start: 02-10-2023 End: 02-10-2023 Patient encounter procedure [facility] Start: 04-23-2022 Influenza vaccination Influenza Vacc ine (#1) [facility] Start: 09-18-2021 COVID-19 Vaccine (2 - Booster for Julian series) COVID-19 Vaccine (2 - Booster for Julian series) [facility] Start: 2021 Screening for malign ant neoplasm of breast Mammogram [facility] Start: 01-07-2007 Hepatitis B Vaccines (2 of 3 - 19+ 3-dose series) Hepatitis B Vaccines (2 of 3 - 19+ 3-dose series) [facility] Start: 01-07-2007 Hepatitis B Vaccines (2 of 3 - 3-dose series) Hepatitis B Vaccines (2 of 3 - 3-dose series) [facility] Start: 1999 Diabetes mellitus screening Diabetes Screening [facility] Start: 1999 Hepatitis C screening Hepatitis C Sc reening [facility] Start: 1994 Varicella vaccination Varicell a Vaccines (1 of 2 - 13+ 2-dose series) [facility] Start: 1993 Depression Screening Depression Scre ening [facility] Start: 1982 MMR Vaccines (1 of 1 - Standard series) MMR Vaccines (1 of 1 - Standard series) [facility] Start: 1982 Varicella vaccination Varicell a Vaccines (1 of 2 - 2-dose childhood series) [facility] Start: 1981 HIV screening HIV Screening [facility] Start: 1981 Thyroid stimulating hormone measurement TSH Level [facility] C reactive protein [Mass/volume] in Serum or Plasma [facility] Catecholamines [Moles/volume] in Plasma [facility] Chiropractic manipulation [facility] Cobalamin (Vitamin B 12) [Mass/volume] in Serum or Plasma [facility] Cortisol [Mass/volum e] in Serum or Plasma [facility] Cyclic citrullinated peptide IgG Ab [Units/volume] in Serum or Plasma [facility] DOPamine [Mass/volum e] in Serum or Plasma [facility] EPINEPHrine [Mass/volume] in Plasma [facility] Erythrocyte sedimentation rate [facility] Estrogen [Mass/volum e] in Serum or Plasma [facility] Folate [Moles/volume ] in Serum or Plasma [facility] Follitropin and Lutr opin panel [Units/volume] - Serum or Plasma [facility] Gastrin [Mass/volume ] in Serum or Plasma [facility] MG Breast - bilatera l Diagnostic [facility] Patient referral [facility] Work Phone: Plasma norepinephrin e measurement [facility] Procedure [facility] Rheumatoid factor [Presence] in Serum [facility] Rheumatoid factor [Presence] in Serum [facility] Serum progesterone measurement [facility] Serum testosterone measurement [facility] Testosterone Free [Mass/volume] in Serum or Plasma [facility] Testosterone measurement [facility] US Breast limited [facility] Vitamin D, 1,25-dihydroxy measurement [facility] Immunizations Immunization Date Immunization Notes Care Provider Bro ansari 07-24-2021 Taggify SARS-CoV-2 Vaccination Mariana Acuña SURVEYING TECHNICIAN - DIRECTOR OF NURSING Work Phone: [facility] 07-01-2021 influenza virus vaccine, unspecified formulation Mariana Acuña SURVEYING TECHNICIAN - DIRECTOR OF NURSING Work Phone: [facility] Surgery 06-27-2018 influenza, injectabl e, quadrivalent, preservative free Dr. Mark Shabazz MD Work Phone: [facility] 06-27-2018 influenza, seasonal, injectable [facility] Work Phone: 08-23-2016 tetanus toxoid, reduced diphtheria toxoid, and acellular pertussis vaccine, adsorbed ELIAN NESBITT MD [facility] Payers Date Payer Category Payer Self-pay [id number] 2024 Commercial Managed C are - HMO [id number] 2024 Private Health Insurance ANNIETIFFANIE Kelli GRIEREDILBERTO [id number] 2024-Present [phone] [address] [address] [place] [address] Commercial [id number]. [id number] 2024 Private Health Insurance [id number] 2023 Unknown [id number] 2023 Unknown [id number] 2021 Unknown [employer] [id number] 2021-Present [address] [place] [address] Commercial [id number]. [id number] 2016 Unknown [id number] 1981 Unknown [id number] 2.16.840.1.738872.3.579.2. 627 1981 Unknown [id number] 2.16.840.1.838936.3.579.2. 627 1981 Unknown [id number] 2.16.840.1.881828.3.579.2. 627 1981 Unknown [id number] 2.16.840.1.563174.3.579.2. 627 1981 Unknown [id number] 2.16.840.1.989661.3.579.2. 627 1981 Unknown [id number] 2.16.840.1.955926.3.579.2. 627 1981 Unknown [id number] 2.16.840.1.542793.3.579.2. 627 1981 Unknown [id number] 2.16.840.1.493433.3.579.2. 62 1981 Unknown [id number] 2..840.1.670317.3.579.2. 1981 Unknown [id number] 2..840.1.105436.3.579.2. 1981 Unknown [id number] 2.840.1.301355.3.579.2. 1981 Unknown [id number] 2.840.1.103999.3.579.2. 627 Unknown [facility] [id number] Unknown [id number] 2.16840.1.986650.3.579.2. 462 Unknown [id number] 2.840.1.733765.3.579.2. 462 Unknown [id number] 2.16840.1.308456.3.579.2. 462 Unknown [id number] 2.16840.1.926259.3.579.2. 462 Unknown [id number] 2.16.840.1.570871.3.579.2. 462 Unknown [id number] 2.16.840.1.165857.3.579.2. 462 Unknown [id number] 2.16840.1.353484.3.579.2. 462 Unknown [id number] 2.16840.1.907268.3.579.2. 462 Unknown [id number] 2.16.840.1.685838.3.579.2. 462 Unknown [id number] 2.16.840.1.850650.3.579.2. 462 Unknown [id number] 2.16.840.1.735718.3.579.2. 462 Unknown [id number] 2.16.840.1.720540.3.579.2. 462 Unknown [id number] 2.16.840.1.496966.3.579.2. 462 Unknown [id number] 2.16.840.1.062748.3.579.2. 462 Unknown [id number] 2.16.840.1.315452.3.579.2. 462 Unknown [id number] 2.840.1.873457.3.579.2. 462 Unknown [id number] 2.840.1.740410.3.579.2. 462 Unknown [id number] 2.840.1.467346.3.579.2. 462 Unknown [id number] 2.16840.1.323215.3.579.2. 462 Unknown [id number] 2.16.840.1.326426.3.579.2. 462 Unknown [id number] 2..840.1.614496.3.579.2. 462 Unknown [id number] 2.16.840.1.884735.3.579.2. 462 Unknown [id number] 2.16.840.1.357413.3.579.2. 462 Unknown [id number] 2.16.840.1.737099.3.579.2. 462 Unknown [id number] 2.16.840.1.898089.3.579.2. 462 Unknown [id number] 2.16.840.1.670175.3.579.2. 462 Unknown [id number] 2.16.840.1.928443.3.579.2. 462 Unknown [id number] 2.16.840.1.832618.3.579.2. 462 Unknown [id number] 2.16.840.1.781235.3.579.2. 462 Unknown [id number] 2.16.840.1.002816.3.579.2. 462 Unknown [id number] 2.16.840.1.029785.3.579.2. 462 Unknown [id number] 2.16.840.1.480956.3.579.2. 462 Unknown [id number] 2.16.840.1.200519.3.579.2. 462 Unknown [id number] 2.16.840.1.072192.3.579.2. 462 Unknown [id number] 2.16.840.1.149285.3.579.2. 462 Social History Date Type Detail Facility Start: 06-27-2020 Tobacco smoking status CAIS Unknown if ever smoked [facility] Work Phone: Start: 1980 Sex Assigned At Female [facility] Start: 01-08-2020 End: 04-24-2025 Tobacco smoking status Never smoked tobacco (finding) [facility] Start: 11-04-2022 End: 03-31-2023 Alcohol intake Current drinker of alcohol (finding) [facility] Start: 11-04-2022 End: 04-16-2025 History of Social function [facility] Start: 11-04-2022 End: 04-16-[address] [facility] Start: 1980 Sex Assigned At Not on file [facility] Start: 10-25-2022 End: 05-17-2023 Exposure to SARS-CoV-2 (event) Not sure [facility] Start: 05-17-2023 End: 04-16-2025 Alcohol intake Ex-drinker (finding) [facility] Start: 03-23-2022 End: 12-01-2024 Sex Female (finding) [facility] NEGATED: Highlighted row Not [facility] Medical Equipment Procedure Code Equipment Code [...] 10-13-2023 Functional Status Awake, Up to bathroom [facility] 10-13-2023 Functional Status [facility] 10-13-2023 Functional Status Maintained [facility] 10-05-2023 Functional Status [facility] Mental Status Date Assessment Result Facility 01-19-2025 Cognitive function Voice/Name [facility] Work Phone: 01-03-2025 [facility] Phone: 10-13-2023 Mental Status Oriented x 4 [facility] 10-13-2023 Mental Status [facility] 10-13-2023 Mental Status Orientation Asse ssment Oriented x 4 [facility] Clinical Notes 11-04-2022 to 04-16-2025 CLEVELAND Patel CNP - 04/16/2025 10:30 AM CLEVELAND Perez CNP - 03/06/2025 10:00 AM Marry Collins MA - 03/06/2025 10:00 AM CLEVELAND Perez CNP - 01/23/2025 10:00 AM EDT Note Date & Type Note Facility 04-16-2025 History of Present illness Narrative [facility] Primary Care Physician: Mark Shabazz Chief Complaint: Chief Complaint Patient presents with Procedure TPI - intractable chronic migraine Main Diagnosis: Diagnosis Plan 1. Intractable [...] is seen in the [facility] for migraines. Patient states she has suffered [...] on current medication regimen. The patient reports she is experiencing an increase in neck and shoulder myofascial pain which she feels is resolved with TPI. The patient would like to receive TPI today for treatment. TPI provided as documented below. The patient continues fioricet and ketorolac for treatment of migraine [...] loss Past Surgical History: Procedure Laterality Date BREAST BIOPSY 01/19/2025 COLPOSCOPY 2014 HYSTEROSCOPY 2015 plus D&C OOPHORECTOMY Left 2009 OVARIAN CYST SURGERY Right 2013 Allergies Allergen Reactions Amoxicillin-Pot Clavulanate Other reaction(s): Hives and/or rash Hydrocodone-Acetaminophen Nausea And Vomiting Other reaction(s): Severe nausea & vomiting, Vomiting Shellfish-Derived Products Tramadol Hallucinations Current Outpatient Medications Medication Sig Dispense Refill ALPRAZolam (Xanax) 0.5 MG tablet acfbdlyjwy-hwoecimmohxnd-aiiyboem 50-325-40 MG tablet Take 1 tablet by mouth every 4 hours as needed for headaches or migraine. 130 tablet 2 cholecalciferol (Vitamin D-3) 50 MCG (2000 UT) [...] 9 mL 9 mL IntraDERmal Once Mariana [place], SURVEYING TECHNICIAN - DIRECTOR OF NURSING lidocaine (Xylocaine) 1 % injection 9 mL 9 mL IntraDERmal Once Mariana [place], SURVEYING TECHNICIAN - DIRECTOR OF NURSING lidocaine (Xylocaine) 1 % injection 9 mL 9 mL Injection Once Mariana [place], SURVEYING TECHNICIAN - DIRECTOR OF NURSING triamcinolone acetonide (Kenalog) injection 10 mg 10 mg IntraMUSCular Once Mariana Domenico, SURVEYING TECHNICIAN - DIRECTOR OF NURSING triamcinolone acetonide (Kenalog) injection 10 mg 10 mg IntraMUSCular Once Mariana Domenico, SURVEYING TECHNICIAN - DIRECTOR OF NURSING triamcinolone acetonide (Kenalog) injection 10 mg 10 mg IntraMUSCular Once Mariana Domenico, SURVEYING TECHNICIAN - DIRECTOR OF NURSING Family History Problem Relation Name Age of Onset High Blood Pressure Mother Sara Other ([id number]) Mother Sara fibromyalgia, anxiety issues Cancer Mother Sara thyroid Diabetes Mother Sara ADD / ADHD Mother Sara Anxiety disorder Mother Sara Depression Mother Sara Fibromyalgia Mother Sara Migraines Mother Sara Neuropathy Mother Sraa High Blood Pressure Father Cancer Other great [...] reviewed and are negative. PHYSICAL EXAM: BP 107/66 Pulse 68 Physical Exam Vitals and nursing note reviewed. [...] to call the Department of Neurology at [phone] for any further concerns. Sincerely, CLEVELAND Lara CNP The above diagnosis and management plan were discussed at length with the patient who voiced understanding and agreed. Electronically signed by: CLEVELAND Lara CNP 04/16/2025 10:50 AM Procedure: Trigger point injections into posterior [...] after receiving TPI today. CLEVELAND Lara CNP 04/16/25 documented in this encounter [facility] 03-06-2025 History of Present illness Narrative DEPARTMENT OF NEUROLOGY BOTOX PROCEDURE NOTE FOR HEADACHE Date: 03/05/25 Patient: Michelle Carlin : 1980 Diagnosis: Intractable [...] 2. L Frontalis 10 units 3. R Credit Processor 10 units 4. L Credit Processor 10 units 5. R Temporalis 20 units [...] expectations reviewed in detail. CLEVELAND Lara CNP 03/05/25 Procedure: Trigger point injections into posterior cervical [...] after receiving TPI today. CLEVELAND Lara CNP 03/05/25 Administrations This Visit onabotulinumtoxin A (BOTOX) injection 200 Units Admin Date 03/06/25 Action Given Dose 200 Units Route IntraMUSCular Site Other Administered By CLEVELAND Lara CNP Ordering Provider: CLEVELAND Lara CNP [facility]: [id number] Lot#: [id number] Resolution Specialist: Allergan Patient Supplied? No documented in this encounter [facility] 03-06-2025 Note DEPARTMENT OF NEUROL OGY BOTOX PROCEDURE NOTE FOR HEADACHE Date: 03/05/25 Patient: Michelle Carlin : 1980 Diagnosis: Intractable [...] 2. L Frontalis 10 units 3. R Credit Processor 10 units 4. L Credit Processor 10 units 5. R Temporalis 20 units [...] treatment expectations reviewed in detail. Mariana Acuña, CLEVELAND - DIRECTOR OF NURSING 03/05/25 Procedure: Trigger point injections into posterior cervical [...] after receiving TPI today. CLEVELAND Lara CNP 03/05/25 [facility] 02-06-2025 Nuclear medicine Diagnostic study note [facility] Imaging Services [address] [place] [address] Hepatobilliary Img w/Pharm Int MR#: [id number] Acct: [id number] Name: MICHELLE CARLIN Rep #: [id number] : 1980 F 44 From: Geo Gongora MD PCP: Dr. Mark Shabazz MD Status: REG CLI Study:Hepatobilliary Img w/Pharm Int Date of Exam: 02/06/25 Exam# [id number] Ordering Dr: Remington Toscano DO PROCEDURE: HEPATOBILLIARY [...] IMPRESSION: Normal gallbladder ejection fraction. Reading Location: [place] [address] CC: Dr. 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 01-23-2025 History of Present illness Narrative [facility] Primary Care Physician: Mark [...] is seen in the [facility] of [facility] for migraines. Patient states she has suffered [...] Dispense Refill ALPRAZolam (Xanax) 0.5 MG tablet ojtyaljlra-rsvdityjidaoa-tqacqktq 50-325-40 MG tablet Take 1 tablet by [...] Onset High Blood Pressure Mother Sara Other ([id number]) Mother Sara fibromyalgia, anxiety issues Cancer Mother [...] to call the Department of Neurology at [phone] for any further concerns. Sincerely, CLEVELAND Lara [...] Lara CNP 01/23/25 documented in this encounter [facility] 01-19-2025 Consult note Note Date/Time January 19, 2025 11:12am [facility] Medical Records Department [address] [place] [address] Pre-Anesthesia Evaluation 01/19/25 1107 MR#: [id number] Acct: [id number] Name: MICHELLE CARLIN Rep #:[id number] : 1980 44 From: Sandra ZUNIGA PCP: Dr. Mark Shabazz MD Status :REG SDC Y Race: C Location: [place] [address] ASA Classification* ASA Classification ASA Classification: 2 [...] EXCISIONAL BIOPSY Anesthesia History Anesthesia History - core finisher: Anesthesia History - core finisher Hx Hospitalization No 01/10/25 11:26 Any Problems [...] take am of surgery PONV PONV - core finisher: PONV - core finisher Female Yes 01/10/25 11:26 HX of Motion [...] 01/19/25 10:57 Respiratory Assessment Respiratory Assessment - core finisher: Respiratory Tract Infection Hx - core finisher Hx Respiratory Tract Infection No 01/10/25 11:26 STOP Sleep Apnea STOP Sleep Apnea - core finisher: STOP Sleep Apnea - core finisher Hx Hypertension No 01/10/25 11:26 Hx Sleep [...] Tobacco Use History Tobacco Use History - core finisher: Tobacco Use History - core finisher Tobacco Use Smoking Status Never smoker 01/10/25 11:26 Hx Tobacco Use No 01/10/25 11:26 Years Smoking Packs Smoked per Day Smoking Cessation Date was within the last 15 years Hx Smoking Cessation Date Hx Smoking Cessation Counseling Hematologic Medial History Hematologic Hx - core finisher: 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 Hx of Blood Transfusion No 01/10/25 11:26 [...] confused, unrespo /Reproduction History /Reproductive History - core finisher: /Reproductive Hx- core finisher Hx Now No 01/10/25 11:26 Gestational Age [...] 4 mg PO QHS 05/16/24 Unknown History hahoijsplz-jbjhayjklykaq-cryexasc 1 tab PO QHS Headach e 06/12/24 [...] spouse current occupational status: employed current occupation: [employer] [place] Smoking Status: Never smoker alcohol intake: never substance use type: does not use seatbelt use: always do you feel safe at home: Yes additional social history: - Rashard Review of Systems (Anesthesia) ROS Narrative System reviewed and no additional complaints, except as documented. 01/19/25 1112 <Electronically signed by Sandar Rowley CRNA> Date _ Sandra Rowley CRNA Cosigner Signature: Date CC: ~ Signed [facility] Work Phone: 1(114) 875-527305-30-2025 History and physical note Author Diann Perez [facility] Note Date/Time January 19, 2025 10:52 am [facility] Medical Records Department [address] [place] [address] History & Physical Exam 01/19/25 1001 MR#: [id number] Acct: [id number] Name: MICHELLE CARLIN ANN Rep #:[id number] : 1980 44 From: Diann Perez MD PCP: Dr. Mark Shabazz MD Status :[facility] Location: [place] [address] History and Physical Date of Admission: 01/19/25 Date of Service: 12/25/24 MR#: [id number] Acct: [id number] Name: MICHELLE CARLIN ANN Rep #: [id number] : 1980 Provider: Dr. Diann Perez MD Age/Sex: 44/F Location: [facility] Status: Signed Intake Vital Signs 11/22/2508:46 [...] 4 mg PO QHS 05/16/24 12/25/24 History srzgrwyflh-epmqsiqvwihyb-yifevzhd 1 tab PO QHS Headache 06/12/24 12/25/24 History 50 mg-325 mg-40 mg tablet diphenhydramine HCl 25 mg capsule 25 mg PO QHS 12/25/24 12/25/24 History (Benadryl) [facility] Medical History Depression Anxiety Injury of head [...] spouse current occupational status: employed current occupation: [employer] [place] Smoking Status: Never smoker alcohol intake: [...] cooperative, healthy appearing and no acute distress [facility] Head: normal to inspection Chest Other: Breast [...] for breast cancer: Status: Acute Comment: 28.2% [facility] lifetime breast cancer risk Plan On exam [...] question this time. Diann Perez M.D. Pager: [phone] [employer] [facility] [address] [place] [address], [facility], [address] [place] [address] Office: [phone] Coding Level of Care Code Off vis,est,level [...] Dr. Diann Perez MD ~* Signed [facility] Work Phone: 1(217) 399-138605-30-2025 Consult note [facility] Medical Records Department [address] [place] [address] Anesthesia Postop Eval I 01/19/25 1229 MR#: [id number] Acct: [id number] Name: MICHELLE CARLIN ANN Rep #:[id number] : 1980 44 From: Sandra ZUNIGA PCP: Dr. Mark Shabazz MD Status :REG [facility] Y Race: C Location: [place] [address] Anesthesia: Postop Eval I Current Vital Signs [...] Postop Eval 1 completed: Yes 01/19/25 1231 CORK TIPPER> Date _ Sandra Rowley CORK TIPPER Cosigner Signature: Date CC: ~ Signed [facility]05-30-2025 Procedure note [facility] Medical Records Department [address] [place] [address] Operative Report 01/19/25 1204 MR#: [id number] Acct: [id number] Name: MICHELLE CARLIN ANN Rep #:[id number] : 1980 44 From: Diann Perez MD PCP: Dr. Mark Shabazz MD Status :REG [facility] Location: [place] [address] Operative Report (Standard) Operative Information Date of Procedure: 01/19/25 Pre-Operative Diagnosis: Left breast mass 12:00 3 cm from the nipple Post-Operative Diagnosis: Same Surgery/Procedure Performed: Ultrasound wire needle localization excisional leftbreast biopsy family law attorney: Yes Farm Management Adviser: Parth Alexander Tasks completed by multimedia production assistant: Opening & closing and Retracting Type of [...] wire was deliveredinto the wound. 2 silk yxkbpi-nq-oiddf stay suture was placed around the wire [...] MD; Dr. Diann Perez MD~ Signed [facility]05-30-2025 Discharge summary [facility] Medical Records Department [address] [place] [address] Instructions for Home/Discharge Instructions 01/19/25 1207 MR#: [id number] Acct: [id number] Name: MICHELLE CARLIN Rep #:[id number] : 1980 44 From: Diann Perez MD PCP: Dr. Mark Shabazz MD Status :REG [facility] Discharge Instructions Diet Discharge Diet: No restrictions [...] With: Diann Perez MD When: Please call [phone] for an appointment to be seen in 2 week. Test Results: Test results from this visit will be discussed in further detail at your follow- up appointment, if applicable. Discharge Plan Admission Attending Provider: Diann Perez Primary Care Provider: Mark Shabazz Instructions Print Language: [place] Islander Discharge Orders/Prescriptions Prescriptions: New oxycodone 5 mg [...] 100 mg tablet 1,140 mg PO DAILY jbdjbpasyf-xveaapmmkkabd-invw 1 TABLET tablet 1 tab PO QHS Referrals / Follow Up: Mark Shabazz MD [Primary Care Provider] - Disposition Disposition (needs filled in before D/C Order can be placed): Home, Self Care 01/19/25 1209Diann Perez MD CC: Dr. Mark Shabazz MD ~ Signed [facility]05-30-2025 Consult note [facility] Medical Records Department [address] [place] [address] Pre-Anesthesia Evaluation 01/19/25 1107 MR#: [id number] Acct: [id number] Name: MICHELLE CARLIN Rep #:[id number] : 1980 44 From: Sandra ZUNIGA PCP: Dr. Mark Shabazz MD Status :REG SDC Y Race: C Location: [place] [address] ASA Classification* ASA Classification ASA Classification: 2 [...] EXCISIONAL BIOPSY Anesthesia History Anesthesia History - core finisher: Anesthesia History - core finisher Hx Hospitalization No 01/10/25 11:26 Any Problems [...] take am of surgery PONV PONV - core finisher: PONV - core finisher Female Yes 01/10/25 11:26 HX of Motion [...] 01/19/25 10:57 Respiratory Assessment Respiratory Assessment - core finisher: Respiratory Tract Infection Hx - core finisher Hx Respiratory Tract Infection No 01/10/25 11:26 STOP Sleep Apnea STOP Sleep Apnea - core finisher: STOP Sleep Apnea - core finisher Hx Hypertension No 01/10/25 11:26 Hx Sleep [...] Tobacco Use History Tobacco Use History - core finisher: Tobacco Use History - core finisher Tobacco Use Smoking Status Never smoker 01/10/25 11:26 Hx Tobacco Use No 01/10/25 11:26 Years Smoking Packs Smoked per Day Smoking Cessation Date was within the last 15 years Hx Smoking Cessation Date Hx Smoking Cessation Counseling Hematologic Medial History Hematologic Hx - core finisher: 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 Specify any problems Hx of Preganancy in last 3 No 01/10/25 11:26 Months Nurse Filling Out Transfusion DSCHRIBER 01/10/25 11:26 & Questions: Date: 01/10/25 01/10/25 11:26 Time: 11:01/10/25 11:26 Patient unable to answer at this time (ie. confused, unrespo /Reproduction History /Reproductive History - core finisher: /Reproductive Hx- core finisher Hx Now No 01/10/25 11:26 Gestational Age [...] 4 mg PO QHS 05/16/24 Unknown History bvkugsquku-bkorqfmzrzksl-zyyarook 1 tab PO QHS Headach e 06/12/24 [...] spouse current occupational status: employed current occupation: [employer] [place] Smoking Status: Never smoker alcohol intake: never substance use type: does not use seatbelt use: always do you feel safe at home: Yes additional social history: - Rashard Review of Systems (Anesthesia) ROS Narrative System reviewed and no additional complaints, except as documented. 01/19/25 1112 CORK TIPPER> Date _ Sandralukasz Negroterer CORK TIPPER Cosigner Signature: Date CC: ~ Signed [facility]05-30-2025 History and physical note [facility] Medical Records Department [address] [place] [address] History & Physical Exam 01/19/25 1001 MR#: [id number] Acct: [id number] Name: MICHELLE CARLIN ANN Rep #:[id number] : 1980 44 From: Diann Perez MD PCP: Dr. Mark Shabazz MD Status :[facility] Location: [place] [address] History and Physical Date of Admission: 01/19/25 Date of Service: 12/25/24 MR#: [id number] Acct: [id number] Name: MICHELLE CARLIN ANN Rep #: [id number] : 1980 Provider: Dr. Diann Perez MD Age/Sex: 44/F Location: [facility] Status: Signed Intake Vital Signs 11/22/2508:46 [...] 4 mg PO QHS 05/16/24 12/25/24 History txtqdcddgq-reeauvytbsbmv-dgbgihnn 1 tab PO QHS Headache 06/12/24 12/25/24 History 50 mg-325 mg-40 mg tablet diphenhydramine HCl 25 mg capsule 25 mg PO QHS 12/25/24 12/25/24 History (Benadryl) [facility] Medical History Depression Anxiety Injury of head [...] for breast cancer: Status: Acute Comment: 28.2% [facility] lifetime breast cancer risk Plan [...] question this time. Diann Perez M.D. Pager: [phone] [facility] [address] [place] [address], [address] [place] [address] Office: [phone] Coding Level of Care Code Off vis,est,level [...] Dr. Diann Perez MD ~* Signed [facility]05-30-2025 [facility] Medical Records Department [address] [place] [address] History Physical Exam 01/19/25 1001 MR#: [id number] Acct: [id number] Name: MICHELLE CARLIN ANN Rep #: [id number] : 1980 44 From: Diann Perez MD PCP: Dr. Mark Shabazz MD Status:[facility] Location: [place] [address] History and Physical Date of Admission: 01/19/25 Date of Service: 12/25/24 MR#: [id number] Acct: [id number] Name: MICHELLE CARLIN ANN Rep #: [id number] : 1980 Provider: Dr. Diann Perez MD Age/Sex: 44/F Location: [facility] Status: Signed Intake Vital Signs 11/22/2508:46 [...] Allergy (Mild, Verified 12/25/24 15:08) pustramadol (From Ultra) Adverse Reaction (Intermediate, Verified 12/25/24 15:08) hallucinationsshellfish [...] 4 mg PO QHS 05/16/24 12/25/24 History krznkgqpaz-icymfpsdnftnj-hmlyzmet 1 tab PO QHS Headache 06/12/24 12/25/24 History 50 mg-325 mg-40 mg tablet diphenhydramine HCl 25 mg capsule 25 mg PO QHS 12/25/24 12/25/24 History (Benadryl) [facility] Medical History Depression Anxiety Injury of head [...] 2009) History of dilation and curettage ( 2014) [...] stent, palpitations, shortness (more content not included)... [facility]05-21-2025 Radiology Diagnostic study note [facility] Imaging Services [address] [place] [address] [id number] Cerv Spine 2 or 3 Views MR#: [id number] Acct: [id number] Name: MICHELLE CARLIN ANN Rep #: [id number] : 1980 F 44 From: Gwyn Smith MD PCP: Dr. Mark Shabazz MD Status: REG CLI Study:Cerv Spine 2 or 3 Views Date of Exam: 01/09/25 Exam# [id number] Ordering Dr: Celina Gunderson D.C. PROCEDURE: CERV [...] No prevertebral soft tissue swelling. Reading Location: [facility] CC: DC Dr. Mirna Gunderson; Dr. 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05-21-2025 Radiology Diagnostic study note [facility] Imaging Services [address] [place] [address] [id number] L/S Spine Min 4 Views MR#: [id number] Acct: [id number] Name: MICHELLE CARLIN ANN Rep #: [id number] : 1980 F 44 From: Gwyn Smith MD PCP: Dr. Mark Shabazz MD Status: REG CLI Study:L/S Spine Min 4 Views Date of Exam: 01/09/25 Exam# [id number] Ordering Dr: Celina Gunderson D.C. PROCEDURE: L/S SPINE MIN 4 VIEWS 01/09/2025 REASON FOR EXAM: BACK PAIN TECHNIQUE: Four views; AP, bilateral oblique and lateral COMPARISON: None available FINDINGS: 5 [id number] lumbar vertebral type bodies identified. No fracture or malalignment. No evidenceof spondylolysis. Disc spaces appear within limits. RAD/L/S Spine Min 4 Views IMPRESSION: Study appears within limits. Reading Location: [facility] CC: DC Dr. Mirna Gunderson; Dr. 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05-20-2025 Evaluation note* Diagnosis Onset Date Resolution Status Admit Date Cervical segment dysfunction acute January 09, 2025 10:54am Neck pain acute January 09, 2025 10:54am Segmental and somatic dysfunction of thoracic region acute M 2024 10:54am Segmental dysfunction of lumbar region acute January 09, 2025 1 0:54am Back pain chronic January 09, 2025 10:54am Migraines chronic January 09, 2025 10:54am Cervical segment dysfunction acute January 23, 2025 12:53pm Segmental and somatic dysfunction of thoracic region acute [facility] 2024 12:53pm Segmental dysfunction of lumbar region acute January 23, 2025 1 2:53pm Cervical segment dysfunction acute January 29, 2025 4:11pm Segmental and somatic dysfunction of thoracic region acute J [facility] 2024 4:11pm Segmental dysfunction of lumbar region acute January 29, 2025 4 :11pm Back pain acute February 06 9:53am Cervical segment dysfunction acute February 06, 2025 9:53am Segmental and somatic dysfunction of thoracic region acute [facility] 2024 9:53am Segmental dysfunction of lumbar region acute February 06, 2025 9:53am Migraines chronic February 06 9:53am Abdominal pain acute February 20, 2025 10:52am Gastroparesis acute February 20 10:52am IBD (inflammatory bowel disease) acute February 20, 2025 1 0:52am Irritable bowel syndrome wit h diarrhea acute February 20, 2025 1 0:52am Cervical segment dysfunction acute February 22, 2025 4:37pm Segmental and somatic dysfunction of thoracic region acute [facility] 2024 4:37pm Segmental dysfunction of lumbar region acute February 22, 2025 4 :37pm Migraines chronic February 22, 2025 4:37pm Cervical segment dysfunction acute March 15, 2025 10:30am Segmental and somatic dysfunction of thoracic region acute [facility] 2024 10:30am Segmental dysfunction of lumbar region acute March 15, 2025 10:30am Migraines chronic March 15 10:30am Cervical segment dysfunction acute March 22, 2025 11:28am Segmental and somatic dysfunction of pelvic region acute Feb 11:28am Segmental and somatic dysfunction of thoracic region acute [facility] 2024 11:28am Segmental dysfunction of lumbar region acute March 22, 2025 11:28am Migraines chronic March 22 11:28am Cervical segment dysfunction acute March 29, 2025 9:56am Segmental and somatic dysfunction of pelvic region acute Mar5 9:56am Segmental and somatic dysfunction of thoracic region acute A [facility] 2024 9:56am Segmental dysfunction of lumbar region acute March 29, 2025 9:56am Migraines chronic March 29 9:56am Cervical segment dysfunction acute April 03, 2025 11:10am Segmental and somatic dysfunction of pelvic region acute Mar us2024 11:10am Segmental and somatic dysfunction of thoracic region acute A [facility] 2024 11:10am Segmental dysfunction of lumbar region acute April 03 11:10am Migraines chronic April 03, 11:10am Cervical segment dysfunction acute April 16, 2025 1:03pm Segmental and somatic dysfunction of pelvic region acute Mar us2024 1:03pm Segmental and somatic dysfunction of thoracic region acute A [facility] 2024 1:03pm Segmental dysfunction of lumbar region acute April 16 1:03pm Back pain chronic April 16, 1:03pm Cervical segment dysfunction acute April 24, 2025 9:29am Segmental and somatic dysfunction of pelvic region acute Sep 2024 9:29am Segmental and somatic dysfunction of thoracic region acute S eptemb2024 9:29am Segmental dysfunction of lumbar region acute April 24 9:29am Migraines chronic April 24, 2025 9:29am Cervical segment dysfunction acute April 30, 2025 10:55am Segmental and somatic dysfunction of pelvic region acute Sep 2024 10:55am Segmental and somatic dysfunction of thoracic region acute S e[facility]er 2024 10:55am Segmental dysfunction of lumbar region acute April 30 10:55am [facility] Work Phone: 1([phone]) 490-717405-05-2025 Evaluation note* Diagnosis Onset Date Resolution Status Admit Date At high risk for breast cancer acute [...] somatic dysfunction of thoracic region acute J [facility] 2024 12:53pm Segmental dysfunction of lum bar region acute January 23, 2025 1 2:53pm Cervical segment dysfunction acute January 29, 2025 4:11pm Segmental and somatic dysfunction of thoracic region acute J [facility] 2024 4:11pm Segmental dysfunction of lum bar region acute January 29, 2025 4 :11pm Back pain acute February 06 9:53am Cervical segment dysfunction acute February 06, 2025 9:53am Segmental and somatic dysfunction of thoracic region acute J [facility] 2024 9:53am Segmental dysfunction of lum bar region acute February 06, 2025 9:53am Migraines chronic February 06 9:53am Abdominal pain acute February 20, 2025 10:52am Gastroparesis acute February 20 10:52am IBD (inflammatory bowel disease) acute February 20, 2025 1 0:52am Irritable bowel syndrome wit h diarrhea acute February 20, 2025 1 0:52am Cervical segment dysfunction acute February 22, 2025 4:37pm Segmental and somatic dysfunction of thoracic region acute J tre[facility]2024 4:37pm Segmental dysfunction of lum bar region acute February 22, 2025 4 :37pm Migraines chronic February 22, 2025 4:37pm Cervical segment dysfunction acute March 15, 2025 10:30am Segmental and somatic dysfunction of thoracic region acute J [facility] 2024 10:30am Segmental dysfunction of lum bar region acute March 15, 2025 10:30am Migraines chronic March 15 10:30am Cervical segment dysfunction acute March 22, 2025 11:28am Segmental and somatic dysfunction of pelvic region acute Feb 11:28am Segmental and somatic dysfunction of thoracic region acute J [facility] 2024 11:28am Segmental dysfunction of lum bar region acute March 22, 2025 11:28am Migraines chronic March 22 11:28am Cervical segment dysfunction acute March 29, 2025 9:56am Segmental and somatic dysfunction of pelvic region acute Aug us2024 9:56am Segmental and somatic dysfunction of thoracic region acute A [facility]ust 2024 9:56am Segmental dysfunction of lum bar region acute March 29, 2025 9:56am [facility] Work Phone: 1([phone]) 996-537705-05-2025 Evaluation note* Diagnosis Onset Date Resolution Status Admit Date At high risk for breast cancer acute [...] somatic dysfunction of thoracic region acute J [facility] 2024 12:53pm Segmental dysfunction of lum bar [...] of thoracic region acute J une 2024 9:53am Segmental dysfunction of lum bar region acute February 06, 2025 9:53am Migraines chronic February 06 9:53am Abdominal pain acute February 20, 2025 10:52am Gastroparesis acute February 20, 2 025 10:52am IBD (inflammatory bowel disease) acute February 20, 2025 1 0:52am Irritable bowel syndrome wit h diarrhea acute February 20, 2025 1 0:52am Cervical segment dysfunction acute February 22, 2025 4:37pm Segmental and somatic dysfunction of thoracic region acute J [facility] 2024 4:37pm Segmental dysfunction of lum bar region acute February 22, 2025 4 :37pm Migraines chronic February 22, 2025 4:37pm Cervical segment dysfunction acute March 15, 2025 10:30am Segmental and somatic dysfunction of thoracic region acute J [facility] 2024 10:30am Segmental dysfunction of lum bar region acute March 15, 2025 10:30am Migraines chronic March 15 10:30am Cervical segment dysfunction acute March 22, 2025 11:28am Segmental and somatic dysfunction of pelvic region acute [facility] 2024 11:28am Segmental and somatic dysfunction of thoracic region acute J [facility] 2024 11:28am Segmental dysfunction of lum bar region acute March 22, 2025 11:28am Migraines chronic March 22 11:28am Cervical segment dysfunction acute March 29, 2025 9:56am Segmental and somatic dysfunction of pelvic region acute Mar us2024 9:56am Segmental and somatic dysfunction of thoracic region acute A [facility] 2024 9:56am Segmental dysfunction of lum bar region acute March 29, 2025 9:56am Migraines chronic March 29 9:56am Cervical segment dysfunction acute April 03, 2025 11:10am Segmental and somatic dysfunction of pelvic region acute Mar ust 2024 11:10am Segmental and somatic dysfunction of thoracic region acute A [facility] 2024 11:10am Segmental dysfunction of lum bar region acute April 03 11:10am [facility] Work Phone: 1(794) 131-269705-05-2025 Evaluation note* Diagnosis Onset Date Resolution Status Admit Date At high risk for breast cancer acute [...] somatic dysfunction of thoracic region acute J [facility] 2024 12:53pm Segmental dysfunction of lum bar region acute January 23, 2025 1 2:53pm Cervical segment dysfunction acute January 29, 2025 4:11pm Segmental and somatic dysfunction of thoracic region acute J [facility] 2024 4:11pm Segmental dysfunction of lum bar region acute January 29, 2025 4 :11pm Back pain acute February 06 9:53am Cervical segment dysfunction acute February 06, 2025 9:53am Segmental and somatic dysfunction of thoracic region acute J [facility] 2024 9:53am Segmental dysfunction of lum bar region acute February 06, 2025 9:53am Migraines chronic February 06 9:53am Abdominal pain acute February 20, 2025 10:52am Gastroparesis acute February 20 10:52am IBD (inflammatory bowel disease) acute February 20, 2025 1 0:52am Irritable bowel syndrome wit h diarrhea acute February 20, 2025 1 0:52am Cervical segment dysfunction acute February 22, 2025 4:37pm Segmental and somatic dysfunction of thoracic region acute J [facility]2024 4:37pm Segmental dysfunction of lum bar region acute February 22, 2025 4 :37pm Migraines chronic February 22, 2025 4:37pm Cervical segment dysfunction acute March 15, 2025 10:30am Segmental and somatic dysfunction of thoracic region acute J [facility] 2024 10:30am Segmental dysfunction of lum bar region acute March 15, 2025 10:30am Migraines chronic March 15 10:30am Cervical segment dysfunction acute March 22, 2025 11:28am Segmental and somatic dysfunction of pelvic region acute Feb 11:28am Segmental and somatic dysfunction of thoracic region acute J [facility] 2024 11:28am Segmental dysfunction of lum bar region acute March 22, 2025 11:28am Migraines chronic March 22 11:28am Cervical segment dysfunction acute March 29, 2025 9:56am Segmental and somatic dysfunction of pelvic region acute Mar 9:56am Segmental and somatic dysfunction of thoracic region acute A [facility] 2024 9:56am Segmental dysfunction of lum bar region acute March 29, 2025 9:56am Migraines chronic March 29 9:56am Cervical segment dysfunction acute April 03, 2025 11:10am Segmental and somatic dysfunction of pelvic region acute Mar ust 2024 11:10am Segmental and somatic dysfunction of thoracic region acute A ugust 2024 11:10am Segmental dysfunction of lum bar region acute April 03 11:10am Migraines chronic April 03 025 11:10am Cervical segment dysfunction acute April 16, 2025 1:03pm Segmental and somatic dysfunction of pelvic region acute Mar us2024 1:03pm Segmental and somatic dysfunction of thoracic region acute A ugust 2024 1:03pm Segmental dysfunction of lum bar region acute April 16 1:03pm [employer] Work Phone: 1([phone]) 392-696705-05-2025 Evaluation note* Diagnosis Onset Date Resolution Status Admit Date At high risk for breast cancer acute December 25, 2024 2:58pm Family history of breast cancer acute December 25, 2024 2: 58pm Left breast mass acute December 25, 2024 2:58pm Cervical segment dysfunction acute January 09, 2025 10:54am Neck pain acute January 09, 2025 10:54am Segmental and somatic dysfunction of thoracic region acute 2024 10:54am Segmental dysfunction of lumbar region acute January 09, 2025 1 0:54am Back pain chronic January 09, 2025 10:54am Migraines chronic January 09, 2025 10:54am Cervical segment dysfunction acute January 23, 2025 12:53pm Segmental and somatic dysfunction of thoracic region acute J [facility] 2024 12:53pm Segmental dysfunction of lumbar region acute January 23, 2025 1 2:53pm Cervical segment dysfunction acute January 29, 2025 4:11pm Segmental and somatic dysfunction of thoracic region acute J [facility] 2024 4:11pm Segmental dysfunction of lumbar region acute January 29, 2025 4 :11pm Back pain acute February 06 9:53am Cervical segment dysfunction acute February 06, 2025 9:53am Segmental and somatic dysfunction of thoracic region acute J une 2024 9:53am Segmental dysfunction of lumbar region acute February 06, 2025 9:53am Migraines chronic February 06 9:53am Abdominal pain acute February 20, 2025 10:52am Gastroparesis acute February 20, 2 025 10:52am IBD (inflammatory bowel disease) acute February 20, 2025 1 0:52am Irritable bowel syndrome wit h diarrhea acute February 20, 2025 1 0:52am Cervical segment dysfunction acute February 22, 2025 4:37pm Segmental and somatic dysfunction of thoracic region acute J [facility]2024 4:37pm Segmental dysfunction of lumbar region acute February 22, 2025 4 :37pm Migraines chronic February 22, 2025 4:37pm Cervical segment dysfunction acute March 15, 2025 10:30am Segmental and somatic dysfunction of thoracic region acute J [facility]2024 10:30am Segmental dysfunction of lumbar region acute March 15, 2025 10:30am Migraines chronic March 15 10:30am Cervical segment dysfunction acute March 22, 2025 11:28am Segmental and somatic dysfunction of pelvic region acute Feb 11:28am Segmental and somatic dysfunction of thoracic region acute J 2024 11:28am Segmental dysfunction of lumbar region acute March 22, 2025 11:28am Migraines chronic March 22 11:28am Cervical segment dysfunction acute March 29, 2025 9:56am Segmental and somatic dysfunction of pelvic region acute Mar 9:56am Segmental and somatic dysfunction of thoracic region acute A ugust 2024 9:56am Segmental dysfunction of lumbar region acute March 29, 2025 9:56am Migraines chronic March 29 9:56am Cervical segment dysfunction acute April 03, 2025 11:10am Segmental and somatic dysfunction of pelvic region acute Mar 11:10am Segmental and somatic dysfunction of thoracic region acute A ugust 2024 11:10am Segmental dysfunction of lumbar region acute April 03 11:10am Migraines chronic April 03 11:10am Cervical segment dysfunction acute April 16, 2025 1:03pm Segmental and somatic dysfunction of pelvic region acute Mar us2024 1:03pm Segmental and somatic dysfunction of thoracic region acute A ugust 2024 1:03pm Segmental dysfunction of lumbar region acute April 16 1:03pm Back pain chronic April 16 1:03pm Cervical segment dysfunction acute April 24, 2025 9:29am Segmental and somatic dysfunction of pelvic region acute Sep tem2024 9:29am Segmental and somatic dysfunction of thoracic region acute S eptember 2024 9:29am Segmental dysfunction of lumbar region acute April 24 9:29am [facility] Work Phone: 1([phone]) 879-957104-22-2025 History of Present illness Narrative* Mariana Acuña APRN - DIRECTOR OF NURSING - 12/12/2024 10:00 AM EDT DEPARTMENT OF [...] 2. L Frontalis 10 units 3. R Credit Processor 10 units 4. L Credit Processor 10 units 5. R Temporalis 20 units [...] By MARIEL Ordering Provider: Mariana Acuña CNP [facility]:[id number] Lot#: [id number] Resolution Specialist: allergan Patient Supplied?: no,buy and bill * Karen Nguyen MA - 12/12/2024 10:00 AM EDT 12/12/2024 Mariana Acuña CNP Trigger point injections Lidocaine [facility] 7170-0034-30 Lot [id number] 9ml Ken[address] [facility] [id number] Lot [id number] 1 ml documented in this [facility]04-22-[facility]25 [facility] BOTOX PROCEDURE NOTE FOR [...] 2. L Frontalis 10 units 3. R Credit Processor 10 units 4. L Credit Processor 10 units 5. R Temporalis 20 units [...] treatment expectations reviewed in detail. Mariana Acuña, SURVEYING TECHNICIAN - DIRECTOR OF NURSING 12/12/24 Procedure: Trigger point injections into posterior [...] least 60% after receiving TPI today. Mariana Aucña, SURVEYING TECHNICIAN - DIRECTOR OF NURSING 12/12/24[facility]04-02-2025 Evaluation note* Diagnosis Onset Date Resolution Status Admit Date At high risk for breast cancer acute [...] and somatic dysfunction of thoracic region acute [facility] 2024 10:54am Segmental dysfunction of lum bar [...] of thoracic region acute J une 2024 9:53am Segmental dysfunction of lum bar region acute February 06, 2025 9:53am Migraines chronic February 06 9:53am Abdominal pain acute February 20, 2025 10:52am Gastroparesis acute February 20, 2 025 10:52am IBD (inflammatory bowel disease) acu te February 20, 2025 10:52am Irritable bowel syndrome wit h diarrhea acute February 20, 2025 1 0:52am Cervical segment dysfunction acute February 22, 2025 4:37pm Segmental and somatic dysfunction of thoracic region acute J [facility] 2024 4:37pm Segmental dysfunction of lum bar region acute February 22, 2025 4 :37pm Migraines chronic February 22, 2025 4:37pm Cervical segment dysfunction acute March 15, 2025 10:30am Segmental and somatic dysfunction of thoracic region acute J [facility] 2024 10:30am Segmental dysfunction of lum bar region acute March 15, 2025 10:30am [employer] [facility] Work Phone: 1(487) 274-613104-02-2025 Evaluation note* Diagnosis Onset Date Resolution Status Admit Date At high risk for breast cancer acute [...] and somatic dysfunction of thoracic region acute [facility] 2024 10:54am Segmental dysfunction of lum bar region acute January 09, 2025 1 0:54am Migraines chronic January 09, 2025 10:54am Cervical segment dysfunction acute January 23, 2025 12:53pm Segmental and somatic dysfunction of thoracic region acute J [facility] 2024 12:53pm Segmental dysfunction of lum bar region acute January 23, 2025 1 2:53pm Cervical segment dysfunction acute January 29, 2025 4:11pm Segmental and somatic dysfunction of thoracic region acute J [facility] 2024 4:11pm Segmental dysfunction of lum bar region acute January 29, 2025 4 :11pm Back pain acute February 06 9:53am Cervical segment dysfunction acute February 06, 2025 9:53am Segmental and somatic dysfunction of thoracic region acute J une 2024 9:53am Segmental dysfunction of lum bar region acute February 06, 2025 9:53am Migraines chronic February 06 9:53am Abdominal pain acute February 20, 2025 10:52am Gastroparesis acute Corinne 1st, 2 025 10:52am IBD (inflammatory bowel disease) acu te February 20, 2025 10:52am Irritable bowel syndrome wit h diarrhea acute February 20, 2025 1 0:52am Cervical segment dysfunction acute February 22, 2025 4:37pm Segmental and somatic dysfunction of thoracic region acute J 2024 4:37pm Segmental dysfunction of lum bar region acute February 22, 2025 4 :37pm Migraines chronic February 22, 2025 4:37pm Cervical segment dysfunction acute March 15, 2025 10:30am Segmental and somatic dysfunction of thoracic region acute J [facility] 2024 10:30am Segmental dysfunction of lum bar region acute March 15, 2025 10:30am Migraines chronic March 15 10:30am Cervical segment dysfunction acute March 22, 2025 11:28am Segmental and somatic dysfunction of thoracic region acute J [facility] 2024 11:28am Segmental dysfunction of lum bar region acute March 22, 2025 11:28am [facility] Work Phone: 1(171) 186-336803-28-2025 Radiology Diagnostic study note [facility] Imaging Services [address] [place] [address] [id number] Breast Limited Unilateral MR#: [id number] Acct: [id number] Name: MICHELLE CARLIN ANN Rep #: [id number] : 1980 F 44 From: Jelani Longo MD PCP: Dr. Mark Shabazz MD Status: REG CLI Study:Breast Limited Unilateral Date of Exam: 11/14/24 Exam# [id number] Ordering Dr: Maryjane Alvarado [employer]ONDITIONER-C PROCEDURE: BREAST LIMITED UNILATERAL 11/14/2024 REASON FOR [...] breast sonogram. Birads: 1, negative. Reading Location: [facility] CC: GRAHAM Alvarado; Dr. 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03-12-2025 Evaluation note* Diagnosis Onset Date Resolution [...] acute January 09, 2025 1 0:54am [facility] Work Phone: 1([phone]) 924-340603-12-2025 Evaluation note* Diagnosis Onset Date Resolution Status [...] somatic dysfunction of thoracic region acute J [facility] 2024 12:53pm Segmental dysfunction of lum bar region acute January 23, 2025 1 2:53pm Cervical segment dysfunction acute January 29, 2025 4:11pm Segmental and somatic dysfunction of thoracic region acute J [facility] 2024 4:11pm Segmental dysfunction of lum bar region acute January 29, 2025 4 :11pm [facility] Work Phone: 1([phone]) 603-671003-12-2025 Evaluation note* Diagnosis Onset Date Resolution Status [...] somatic dysfunction of thoracic region acute J [facility] 2024 12:53pm Segmental dysfunction of lum bar region acute January 23, 2025 1 2:53pm [facility] Work Phone: 1([phone]) [phone] Evaluation note* Diagnosis Onset Date Resolution Status [...] :11pm Back pain acute February 06 9:53am [facility] Work Phone: 1(702) 841-271603-12-2025 Evaluation note* Diagnosis Onset Date Resolution Status [...] of thoracic region acute J une 2024 9:53am Segmental dysfunction of lum bar region acute February 06, 2025 9:53am Migraines chronic February 06 9:53am [facility] Work Phone: 1([phone]) 117-331403-12-2025 Evaluation note* Diagnosis Onset Date Resolution Status [...] and somatic dysfunction of thoracic region acute [facility] 2024 10:54am Segmental dysfunction of lum bar [...] of thoracic region acute J une 2024 9:53am Segmental dysfunction of lum bar region acute February 06, 2025 9:53am Migraines chronic February 06 9:53am Gastroparesis acute February 20, 025 10:52am Irritable bowel syndrome wit h diarrhea acute February 20, 2025 1 0:52am [employer] [facility] [employer] [facility] Work Phone: 1(244) 898-955403-12-2025 Evaluation note* Diagnosis Onset Date Resolution Status [...] and somatic dysfunction of thoracic region acute [facility] 2024 10:54am Segmental dysfunction of lum bar region acute January 09, 2025 1 0:54am Migraines chronic January 09, 2025 10:54am Cervical segment dysfunction acute January 23, 2025 12:53pm Segmental and somatic dysfunction of thoracic region acute J [facility] 2024 12:53pm Segmental dysfunction of lum bar region acute January 23, 2025 1 2:53pm Cervical segment dysfunction acute January 29, 2025 4:11pm Segmental and somatic dysfunction of thoracic region acute J [facility] 2024 4:11pm Segmental dysfunction of lum bar region acute January 29, 2025 4 :11pm Back pain acute February 06 9:53am Cervical segment dysfunction acute February 06, 2025 9:53am Segmental and somatic dysfunction of thoracic region acute J [facility] 2024 9:53am Segmental dysfunction of lum bar region acute February 06, 2025 9:53am Migraines chronic February 06 9:53am Abdominal pain acute February 20, 2025 10:52am Gastroparesis acute February 20, 025 10:52am IBD (inflammatory bowel disease) acu te February 20, 2025 10:52am Irritable bowel syndrome wit h diarrhea acute February 20, 2025 1 0:52am Cervical segment dysfunction acute February 22, 2025 4:37pm Segmental and somatic dysfunction of thoracic region acute J trevor2024 4:37pm Segmental dysfunction of lum bar region acute February 22, 2025 4 :37pm [facility] Work Phone: 1(205) 150-113803-11-2025 History of Present illness Narrative* Mariana Acuña, SURVEYING TECHNICIAN - DIRECTOR OF NURSING - 10/31/2024 9:30 AM EDT [facility] Primary Care Physician: Mark [...] is seen in the NEUROLOGY CLINIC of [facility] for migraines. Patient states she has suffered [...] injection 9 mL 9 mL IntraDERmal Once Marianapriya Acuña, SURVEYING TECHNICIAN - DIRECTOR OF NURSING lidocaine (Xylocaine) 1 % injection 9 mL 9 mL IntraDERmal Once Mariana Acuña, SURVEYING TECHNICIAN - DIRECTOR OF NURSING lidocaine (Xylocaine) 1 % injection 9 mL 9 mL IntraDERmal Once Mariana Acuña, SURVEYING TECHNICIAN - DIRECTOR OF NURSING triamcinolone acetonide (Kenalog) injection 10 mg 10 mg IntraMUSCular Once Mariana Domenico, SURVEYING TECHNICIAN - DIRECTOR OF NURSING triamcinolone acetonide (Kenalog) injection 10 mg 10 mg IntraMUSCular Once Mariana Domenico, SURVEYING TECHNICIAN - DIRECTOR OF NURSING triamcinolone acetonide (Kenalog) injection 10 mg 10 mg IntraMUSCular Once Mariana Domenico, SURVEYING TECHNICIAN - DIRECTOR OF NURSING Family History Problem Relation Name Age of Onset High Blood Pressure Mother Sara Other ([id number]) Mother Sara fibromyalgia, anxiety issues Cancer Mother Sara thyroid Diabetes Mother Asra ADD / ADHD Mother Sara Anxiety disorder [...] to call the Department of Neurology at [phone] for any further concerns. Sincerely, [place] Lara [...] Trigger point injections Mariana Acuña CNP Lidocaine [facility] 1769-4761-68 Lot [id number] [address] [facility] 5611-8159-10 Lot [id number] 1 ml documented in this [facility]01-28-2025 Evaluation note* Diagnosis Onset Date Resolution Status Admit Date Abdominal pain acute September 192024 10:18am Gastroparesis acute August 10:18am IBD (inflammatory bowel disease) acute September 19 10:18am Irritable bowel syndrome wit h diarrhea acute September 19 10:18am Family history of breast cancer acut e November 01, 2024 3:32pm Left breast mass acute November 012024 3:32pm [facility] Work Phone: 1(662) 964-739001-28-2025 Evaluation note* Diagnosis Onset Date Resolution Status [...] 9:28am Left breast mass acute November 9:28am [facility] Work Phone: 1(690) 422-265201-28-2025 Evaluation note* Diagnosis Onset Date Resolution Status [...] Left breast mass acute November d2024 9:28am At high risk for breast cancer acute December 25, 2024 2:58pm Family history of breast cancer acut e December 25, 2024 2:58pm Left breast mass acute December 25, 2024 2:58pm Migraines acute January 09, 2025 10:54am [facility] Work Phone: 1(720) 955-181001-28-2025 Evaluation note* Diagnosis Onset Date Resolution Status [...] acute January 09, 2025 1 0:54am [facility] Work Phone: 1(452) 114-658801-28-2025 History of Present illness Narrative* Mariana Acuña, SURVEYING TECHNICIAN - DIRECTOR OF NURSING - 09/19/2024 8:00 AM EST DEPARTMENT OF [...] 2. L Frontalis 10 units 3. R Credit Processor 10 units 4. L Credit Processor 10 units 5. R Temporalis 20 units [...] Lara CNP Ordering Provider: [place] Lara CNP [facility]: 8111-4123-36 Lot#: [id number] Resolution Specialist: Allergan Patient Supplied?: No documented in this [facility]01-28-2025 History of Present illness Narrative* [place] Patel [...] 2. L Frontalis 10 units 3. R Credit Processor 10 units 4. L Credit Processor 10 units 5. R Temporalis 20 units [...] Lara CNP Ordering Provider: [place] Lara CNP [facility]: 8905-8110-94 Lot#: [id number] Resolution Specialist: Allergan Patient Supplied?: No documented in this [facility]01-28-2025 Miscellaneous Notes* Addendum Note - Karen Nguyen MA - 09/19/2024 8:00 AM ESTAddended by: KAREN NGUYEN on: 09/19/2024 09:57 AM Modules accepted: Orders documented in this [facility]01-28-2025 Miscellaneous Notes* Addendum Note - Karen Nguyen MA - 09/19/2024 8:00 AM ESTAddended by: KAREN NGUYEN on: 09/19/2024 09:57 AM Modules accepted: Orders * Addendum Note - [place] Patel CNP - 09/19/2024 8:00 AM ESTAddended by: MARIANA ACUÑA on: 09/25/2024 07:08 AM Modules accepted: Orders documented in this [facility]01-28-2025 Note* Addendum Note - Karen Nguyen MA - 09/19/2024 8:00 AM ESTAddended by: KAREN NGUYEN on: 09/19/2024 09:57 AM Modules accepted: Orders [id number] Note* Addendum Note - Karen Nguyen MA - 09/19/2024 8:00 AM ESTAddended by: KAREN NGUYEN on: 09/19/2024 09:57 AM Modules accepted: Orders [facility] [id number] Note* Addendum Note - Karen Nguyen MA - 09/19/2024 8:00 AM ESTAddended by: KAREN NGUYEN on: 09/19/2024 09:57 AM Modules accepted: Orders [facility] CenterZvropa07-59-3938 Note* Addendum Note - Karen Nguyen MA - 09/19/2024 8:00 AM ESTAddended by: KAREN NGUYEN on: 09/19/2024 09:57 AM Modules accepted: Orders [facility] [id number] Note* Addendum Note - [place] Patel CNP - 09/19/2024 8:00 AM ESTAddended by: MARIANA ACUÑA on: 09/25/2024 07:08 AM Modules accepted: Orders [facility]01-28-2025 [facility] BOTOX PROCEDURE NOTE FOR [...] 2. L Frontalis 10 units 3. R Credit Processor 10 units 4. L Credit Processor 10 units 5. R Temporalis 20 units [...] least 60% after receiving TPI today. Mariana Acuña, [place] - SUDHAKAR 09/19/24[facility]01-01-2025 Consult note Author Sandra Rowley [facility] Note Date/Time January 19, 2025 12:31 pm [facility] Medical Records Department [address] [place] [address] Anesthesia Postop Eval I 01/19/25 1229 MR#: [id number] Acct: [id number] Name: MICHELLE CARLIN Rep #:[id number] : 1980 44 From: Sandra ZUNIGA PCP: Dr. Mark Shabazz MD Status :[facility] Y Race: C Location: [place] [address] Anesthesia: Postop Eval I Current Vital Signs [...] Cosigner Signature: Date CC: ~ Signed [facility] Work Phone: 1(880) 162-754912-26-2024 Telephone encounter Note* Telephone Encounter - Karen Husain 08/17/2024 3:47 PM EST Name of Caller: Michelle Contact Reason for Appointment: Pt is requesting to reschedule appointment on 08/31/24 at 11:30 due to change in work schedule. 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 States it does not list fouzia on script. Entire script with FOUZIA is in epic. R: Hung up with pharmacist and called [facility] to verify speaking with [facility] pharmacist and gave requested information/ verification of script. Pt advised to call back with worsening of symptoms, concern or questions. Pt verbalized understanding. Reason for Disposition Pharmacy calling with prescription question and triager answers question Protocols used: Medication Question [id number] documented in this encounterSSelect Medical Specialty Hospital [facility] OhioDtsfze19-18-9580 Telephone encounter Note* Telephone Encounter - Regla Vela RN - 06/30/2024 8:04 AM EST Noted [facility] CenterDczpci57-39-1727 Telephone encounter Note* Telephone Encounter - Kiera Rinaldi RN - 06/29/2024 4:24 PM EST S: Michelle from [facility] calling CAC d/t medication problem B: butalbital- acetaminophen- caffeine 50-325-40 mg tablet A: pharmacist calling stating received a controlled substance script that did not go through the controlled substance part of e script. States it does not list fouzia on script. Entire script with FOUZIA is in epic. R: Hung up with pharmacist and called [facility] to verify speaking with [facility] pharmacist and gave requested information/ verification of script. Pt advised to call back with worsening of symptoms, concern or questions. Pt verbalized understanding. Reason for Disposition Pharmacy calling with prescription question and triager answers question Protocols used: Medication Question [id number] [facility] CenterYfseve01-27-9453 History of Present illness Narrative* Mariana Domenico, SURVEYING TECHNICIAN - DIRECTOR OF NURSING - 06/29/2024 2:30 PM EST [facility] Primary Care Physician: Mark [...] is seen in the NEUROLOGY CLINIC of [facility] for migraines. Patient states she has suffered [...] mL 9 mL IntraDERmal Once Mariana Acuña SURVEYING TECHNICIAN - DIRECTOR OF NURSING lidocaine (Xylocaine) 1 % injection 9 mL 9 mL IntraDERmal Once Mariana Acuañ, SURVEYING TECHNICIAN - DIRECTOR OF NURSING triamcinolone acetonide (Kenalog) injection 10 mg 10 mg IntraMUSCular Once Mariana Domenico, SURVEYING TECHNICIAN - DIRECTOR OF NURSING triamcinolone acetonide (Kenalog) injection 10 mg 10 mg IntraMUSCular Once Mariana [place], SURVEYING TECHNICIAN - DIRECTOR OF NURSING Family History Problem Relation Name Age of Onset High Blood Pressure Mother Sara Other ([phone]) Mother Sara fibromyalgia, anxiety issues Cancer Mother [...] to call the Department of Neurology at [phone] for any further concerns. Sincerely, [place] Lara [...] [place] Lara CNP 06/29/24 documented in this [facility]10-22-2024 [facility] Medical Records Department [address] [place] [address] History Physical Exam 06/13/24 1419 MR#: [id number] Acct: [id number] Name: MICHELLE CARLIN ANN Rep #: [id number] : 1980 43 From: Unruly Toscano DO PCP: Dr. Mark Shabazz MD Status:[facility] Location: [place] [address] History and Physical Date of Admission: 06/13/24 MICHELLE CARLIN, is a 43 F who presents to the office today for establishment with [facility] for complaints of sharp constant LLQ abdominal pain. 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 She reports pain has been present [...] body habitus and well nourished Orientation: alert [facility] Head: normal to inspection Ears: hearing grossly [...] to the office today for establishment with [facility] for complaints of sharp constant [...] Ltd US w/elastography (more content not included)...[facility]10-14-2024 History of Present illness Narrative* Mariana Acuña, SURVEYING TECHNICIAN - DIRECTOR OF NURSING - 06/05/2024 2:00 PM EDT DEPARTMENT OF [...] 2. L Frontalis 10 units 3. R Credit Processor 10 units 4. L Credit Processor 10 units 5. R Temporalis 20 units [...] Lara CNP Ordering Provider: [place] Lara CNP [facility]: 3447-2639-60 Lot#: [id number] Resolution Specialist: Allergan Patient Supplied?: SAMPLE documented in this [facility]10-14-2024 NoteDEPARTMENT OF NEUROLOGY BOTOX PROCEDURE NOTE FOR [...] 2. L Frontalis 10 units 3. R Credit Processor 10 units 4. L Credit Processor 10 units 5. R Temporalis 20 units [...] treatment expectations reviewed in detail. Mariana Acuña, [place] - SUDHAKAR 06/02/24[facility]10-01-2024 Telephone encounter Note* Telephone Encounter - Marilee Collins MA - 05/23/2024 12:20 PM EDT [employer] Botox auth form filled out, scanned and faxed. Will await insurance decision. [facility] [id number] Miscellaneous Notes* Telephone Encounter - Marilee Collins [...] prescription was sent to the pharmacy to crop picker. * Telephone Encounter - Veronique Simeon - 04/27/2024 4:27 PM EDT Patient has new prescription insurance and [facility] submitted the RX Prescription PA for Botox [...] 04/25/24 (due to being closed for holiday) [facility] can look into pharmacy benefit with new [...] needed or not. Please advise Office Name: [facility] documented in this [facility]09-20-2024 Telephone encounter Note* Telephone Encounter - [place] Patel CNP - 05/12/2024 12:30 PM EDT Requested Prescriptions Signed Prescriptions Disp Refills fremanezumab (Ajovy) 225 MG/1.5ML auto-injector 1.5 mL 2 Sig: Inject 1 Pen (225 mg) under the skin every 30 (thirty) days. Authorizing Provider: MARIANA ACUÑA [facility] CenterZomxgv10-56-2023 Miscellaneous Notes* Telephone Encounter - [place] Patel CNP - 05/12/2024 12:30 PM EDT Requested Prescriptions Signed Prescriptions Disp Refills fremanezumab (Ajovy) 225 MG/1.5ML auto-injector 1.5 mL 2 Sig: Inject 1 Pen (225 mg) under the skin every 30 (thirty) days. Authorizing Provider: MARIANA ACUÑA * Telephone Encounter - Wendi Starks PharmD - 05/12/2024 10:34 AM EDT Pt reached out to [facility] about Rx. Pended Rx. documented in this encounterSSelect Medical Specialty Hospital [facility] [id number] Telephone encounter Note* Telephone Encounter - Wendi Starks PharmD - 05/12/2024 10:34 AM EDT Pt reached out to [facility] about Rx. Pended Rx. [facility] CenterAynokd27-60-3516 Telephone encounter Note* Telephone Encounter - Marilee Collins MA - 05/01/2024 1:59 PM EDT Insurance needs a PA on Ajovy. [facility] CenterCqvcoz97-35-4020 Miscellaneous Notes* Telephone Encounter - Marilee Collins MA - 05/01/2024 1:59 PM EDT Insurance needs a PA on Ajovy. * Telephone Encounter - Regla Vela RN - 04/28/2024 3:58 PM EDT Lmovm please release message to patient as written * Addendum Note - C[place] Patle CNP - 04/28/2024 3:52 PM EDTAddended by: MARIANA ACUÑA on: 04/28/2024 03:52 PM Modules accepted: Orders * Telephone Encounter - [place] Patel CNP - 04/28/2024 3:50 PM EDT Please advise the patient she must try and fail Ajovy before approving Emgality. The prescription was sent to the pharmacy to crop picker. * Telephone Encounter - Veronique Simeon - 04/27/2024 4:27 PM EDT Patient has new prescription insurance and [facility] submitted the RX Prescription PA for Botox [...] 04/25/24 (due to being closed for holiday) [facility] can look into pharmacy benefit with new [...] needed or not. Please advise Office Name: [facility] documented in this [facility]09-06-2024 Miscellaneous Notes* Telephone Encounter - Regla Vela [...] prescription was sent to the pharmacy to crop picker. * Telephone Encounter - Veronique Simeon - 04/27/2024 4:27 PM EDT Patient has new prescription insurance and [facility] submitted the RX Prescription PA for Botox [...] 04/25/24 (due to being closed for holiday) [facility] can look into pharmacy benefit with new [...] needed or not. Please advise Office Name: [facility] documented in this encounterSSelect Medical Specialty Hospital - Southeast OhioDcifjx30-75-8672 Telephone encounter Note* Telephone Encounter - Regla Vela RN - 04/28/2024 3:58 PM EDT Lmovm please release message to patient as written [facility] CenterJvlutc28-15-3704 Note* Addendum Note - Mariana Acuña APRN - SUDHAKAR - 04/28/2024 3:52 PM EDTAddended by: MARIANA ACUÑA on: 04/28/2024 03:52 PM Modules accepted: Orders [place] [id number] Note* Addendum Note - C[place] Patel CNP - 04/28/2024 3:52 PM EDTAddended by: MARIANA ACUÑA on: 04/28/2024 03:52 PM Modules accepted: Orders [place] [id number] Note* Addendum Note - C[place] Patel CNP - 04/28/2024 3:52 PM EDTAddended by: MARIANA ACUÑA on: 04/28/2024 03:52 PM Modules accepted: Orders [place] [id number] Note* Addendum Note - C[place] Patel CNP - 04/28/2024 3:52 PM EDTAddended by: MARIANA ACUÑA on: 04/28/2024 03:52 PM Modules accepted: Orders [place] [id number] NoteAddended by: MARIANA ACUÑA on: 04/28/2024 03:52 PM Modules accepted: [facility]09-06-2024 Telephone encounter Note* Telephone Encounter - C[place] Patel CNP - 04/28/2024 3:50 PM EDT Please advise the patient she must try and fail Kaylay before approving Emgality. The prescription was sent to the pharmacy to crop picker. [facility] CenterIpthne06-19-1882 Telephone encounter Note* Telephone Encounter - Veronique Simeon - 04/27/2024 4:27 PM EDT Patient has new prescription insurance and [facility] submitted the RX Prescription PA for Botox and PA was Denied. Per new insurance, the requested medication can only be approved if the patient has trial and failure of one of the following; aimovig or ajovy Botox RX Prescription PA Denied, until pt tries and fails Aimovig OR Ajovy [facility] CenterVehrvk74-32-8551 Miscellaneous Notes* Telephone Encounter - Veronique Simeon - 04/27/2024 4:27 PM EDT Patient has new prescription insurance and [facility] submitted the RX Prescription PA for Botox [...] 04/25/24 (due to being closed for holiday) [facility] can look into pharmacy benefit with new [...] needed or not. Please advise Office Name: [facility] documented in this encounterSSelect Medical Specialty Hospital - Southeast OhioLzdjgf83-20-7181 Telephone encounter Note* Telephone Encounter - Regla Vela RN - 04/13/2024 10:56 AM EDT Noted thanks [facility] CenterEojujx32-46-3052 Miscellaneous Notes* Telephone Encounter - Regla Vela RN - 04/13/2024 10:56 AM EDT Noted thanks * Telephone Encounter - Veronique Simeon - 04/13/2024 9:50 AM EDT It will likely be Medical, but since its not active until 04/23/24, I cannot get the prescription insurance info yet, so I cannot say for sure. On 04/25/24 (due to being closed for holiday) [facility] can look into pharmacy benefit with new [...] needed or not. Please advise Office Name: [facility] documented in this encounterSSelect Medical Specialty Hospital [facility] OhioMrvzlo04-12-3981 Telephone encounter Note* Telephone Encounter - Veronique Simeon - 04/13/2024 9:50 AM EDT It will likely be Medical, but since its not active until 04/23/24, I cannot get the prescription insurance info yet, so I cannot say for sure. On 04/25/24 (due to being closed for holiday) [facility] can look into pharmacy benefit with new insurance. [facility] [id number] Telephone encounter Note* Telephone Encounter - Darleen [...] needed or not. Please advise Office Name: [facility] [id number] History of Present illness Narrative* [place] Patel [...] 2. L Frontalis 10 units 3. R Credit Processor 10 units 4. L Credit Processor 10 units 5. R Temporalis 20 units [...] 24hours. Post treatment expectations reviewed in detail. Mariana Acuña, [place] - DIRECTOR OF NURSING 02/16/24 Procedure: Trigger point injections into posterior [...] Lara CNP Ordering Provider: [place] Lara CNP [facility]: 3248-3923-16 Lot#: [id number] Resolution Specialist: Allergan Patient Supplied?: No documented in this [facility]05-14-2024 History of Present illness Narrative* [place] Patel CNP - 01/04/2024 10:00 AM EDT [facility] Primary Care Physician: Mark Shabazz Chief Complaint: Chief Complaint Patient presents with Procedure TPI Main Diagnosis: Diagnosis Plan 1. Myofascial pain lidocaine (Xylocaine) 1 % injection 9 mL triamcinolone acetonide (Kenalog) injection 10 mg 2. Chronic migraine without aura, intractable, without status migrainosus methylPREDNISolone (Medrol Dospak) 4 MG tablets sywfaaatfc-cijtxfewnccea-uckfzojj 50-325-40 MG tablet History: given by the patient and EMR. EMR was personally reviewed prior to today's visit and included review of prior notes and intermediate communications. HPI: Ms. Michelle Carlin is a 43 y.o. female who is seen in the NEUROLOGY CLINIC of [facility] for migraines. Patient states she has suffered [...] muscle spasms. 0 Refill(s) 90 tablet 1 bmkpcigroa-ifgrajpmrxfie-fengzxhh 50-325-40 MG tablet TAKE 1 TABLET BY [...] Onset High Blood Pressure Mother Sara Other ([id number]) Mother Sara fibromyalgia, anxiety issues Cancer Mother [...] migrainosus methylPREDNISolone (Medrol Dospak) 4 MG tablets wwwvchdanc-wpdvreeoxwool-tmnxrlbs 50-325-40 MG tablet PLAN: 1. TPI provided [...] to call the Department of Neurology at [phone] for any further concerns. Sincerely, [place] Patel [...] [place] Patel CNP 01/04/24 documented in this [facility]04-02-2024 History of Present illness Narrative* [place] Patel [...] 2. L Frontalis 10 units 3. R Credit Processor 10 units 4. L Credit Processor 10 units 5. R Temporalis 20 units [...] Patel CNP Ordering Provider: [place] Patel CNP [facility]: 2203-2057-94 Lot#: [id number] Resolution Specialist: Allergan Patient Supplied?: No documented in this [facility]02-22-2024 Telephone encounter Note* Telephone Encounter - C[place] Patel CNP - 10/14/2023 3:33 PM EST Requested Prescriptions Signed Prescriptions Disp Refills Rimegepant Sulfate (Nurtec) 75 MG tablet dispersible 16 tablet 5 Sig: TAKE 75 MG BY MOUTH ONCE EVERY OTHER DAY (MIGRAINE) Authorizing Provider: MARIANA ACUÑA [facility] [id number] Miscellaneous Notes* Telephone Encounter - CLEVELAND Patel CNP - 10/14/2023 3:33 PM EST Requested Prescriptions Signed Prescriptions Disp Refills Rimegepant Sulfate (Nurtec) 75 MG tablet dispersible 16 tablet 5 Sig: TAKE 75 MG BY MOUTH ONCE EVERY OTHER DAY (MIGRAINE) Authorizing Provider: MARIANA ACUÑA documented in this [facility]02-21-2024 Hospital Discharge instructions Patient Education 10/13/2023 13:04:08 1- MERGED WITH [facility] General Discharge Guidelines (05/07/2023) (CUSTOM) SUGAR [...] 09/24/2023 10:21:45 With:ROXANA CLARK MD, Surgery Address: [address] [place] [address] [address] [place] [address] [phone] When: Unknown Comments:Follow-up as scheduled [facility] 02-21-2024 Summary of episode note Discharge Instructions Thank you for allowing [facility] to assist you with your healthcare needs. [...] a purchased Sitz bath from a pharmacy, [facility] supply, or from [facility]) or hand-held shower should be taken 2-3 [...] Op 11/16/2023 09:30 AM ROXANA PAGE MD [facility] Surgery Follow Up Appointments Follow Up with ROXANA CLARK MD, Surgery When Why: Follow-up as scheduled Where: [address] [facility] [place] [address]- [phone] The Following Activity and Diet Have Been [...] Post-op pain Duration: 7 Days Pickup at [facility] Unchanged APAP/ butalbital/ caffeine (APAP/ [...] by mouth Daily at bedtime Pharmacy Information [facility]: [address] [place] [address] [phone] Please take this list to your next doctor s visit. Bring all medications you take, including over the counter medications, herbals and other supplements with you to your doctor s visit. Patients and families are reminded to discard old lists and to update any records with all medication providers or retail pharmacies. Education Materials [place] SAME DAY SURGERY DISCHARGE INSTRUCTIONS PLEASE FOLLOW [...] to receive it can visit one of [facility] vaccine clinics. There are many vaccine clinic locations within the [facility]. For locations and available times, please visit [email or web address] It is important to note that some COVID mobile vaccine clinics are held outdoors and may be canceled in rainy or stormy conditions. To learn more about pediatric vaccinations (ages 5-11), we invite you to visit the [facility] webpage. https://www.[facility].org/pages/[email or web address]-Acczv-Mafiokrwlec-Udvzkuvugk-Lnahf-Nbw stions.htmlTo learn more about the COVID-19 vaccine, we invite you to visit the CDC website for a list of frequently asked questions.https://www.cdc.gov/coronavirus/2019-ncov/vaccines/faq.html [facility] Patient Portal Access Instructions: Stay connected with your healthcare team and access your personal medical information anytime with the [employer] Patient Portal. Please follow the directions below to create your [employer] account: 1.Access the email account you provided upon registration to the hospital/physician office.2.Look for an invitation email from [facility].3.Open the email and access the invitation link: AcceptInvitation to [employer].4.Fill in the required lópez to create your account. To access your account, visit GameSkinny/OrderUpt. Click the blue button labeled Access Patient [...] who you will allowto register on the [facility] Patient Portal for access to your information. You can also access the [facility] Patient Portal on the [facility] hanane. Simply click on Patient Portal and then log into your account. If you would like to receive a full copy of your medical records, please contact the [facility] Medical Records Department by calling [phone], Wednesday through Wednesday between 8 a.m. and [...] Call your local pharmacy or go to [email or web address] to find one close to you.3.Make use of household items: Use cat litter or old coffee grounds to dispose medications if other options arenot available. Mix your drugs with these household products, seal them in an airtight container andthrow it into the garbage. Call [facility]: [phone] to be sure your drugs can be [...] CHART COPY. Signatures Patient Education Materials 1- SDS General Discharge Guidelines (05/07/2023) (CUSTOM) Medication Leaflets My discharge plan and instructions have been reviewed and explained to me and I,MICHELLE CARLIN understand my current condition and have read and understand these discharge instructions. I have received a written copy of the plan/instructions. If I have questions, I am aware that I should contact my doctor. 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 Signature: Date/Time: Relationship to Patient: Witness Name/Signature: Date/Time: [facility] HospitalEihihgdi31-81-4798 Anesthesiology Consult note Patient: MICHELLE CARLIN Age: [...] ZAK SPRINGER MD on 10/13/2023 12:57 PM [facility] HospitalFanmkmst45-21-9913 Anesthesiology Consult note Patient: MICHELLE CARLIN Age: [...] Problem list: Medical Hypothyroid / SNOMED CT 03970588 / Confirmed LLQ abdominal pain / SNOMED CT 931870474 / Confirmed Menopausal state / SNOMED CT 371107106 / Confirmed Encounter for annual routine gynecological examination / SNOMED CT 202263542 / Confirmed Premature menopause on HRT / SNOMED CT 4780223249 / Confirmed Weight loss, unintentional / SNOMED CT 6194001807 / Confirmed, Active Problems (12) Anal skin [...] Hyperlipidemia Father Diabetes Mother Procedure history: Colonoscopy (088123793) in the month of 07/2023 at 42 Years. Hysterectomy (275286036). Breast reduction, bilateral (851174431). LEEP (62306016). Appendectomy (067053773). Breast lumpectomy (4497048533). Dilation and curettage (52160033). Comments: 10/05/2023 10:33 EST - Tiarra Tripp [...] mmHg Vital Signs(last 24 hrs) Last Charted TQS596 mmHg (OCT 13 09:27) DBP70 mmHg (OCT 13 09:27) Measurements from flowsheet : Measurements 10/13/2023 9:27 EST Height 162.6 cm Height in inches 64 inch(es) Admission Weight 49.5 kg Weight Lbs 108.9 lb Weight Method Actual Hodges Body Weight 54.74 kg Type of Scale [...] Method Explanation, Printed materials Preferred Spoken Language [place] Islander Preferred Written Language [place] Islander Family/Caregiver Prefer Spoken Language [place] Islander Family/Caregiver Prefer Written Language [place] Islander General Infection Prevention Strategies Hand hygiene Surgical Site Infection Prevention SSI FAQ provided Infection Prevention Teaching Evaluation Verbalizes/Nonverbally indicates understanding Pre Procedure/Surgery Education Appropriate expectations, Bring glasses, hearing aids, contact lenscase, Date/Time of procedure/surgery, Hospital gown requirement worn to OR, Leave valuables, jewelry, wedding ring at home, Meds to take or hold, NPO, Responsible frontload driver for discharge, Surgical skin prep Procedure/Surgical Teaching Evaluation Verbalizes/Nonverbally indicates understanding Safety Measures Education Fall prevention Safety Teaching Evaluation Verbalizes/Nonverbally indicates understanding 10/13/2023 9:27 EST Height 162.6 cm Height in inches 64 inch(es) Admission Weight 49.5 kg Weight Lbs 108.9 lb Weight Method Actual Hodges Body Weight 54.74 kg Type of Scale [...] no difficulties Skin Temperature Warm Skin Description [place], Normal for ethnicity, Dry Skin Integrity Intact [...] Person #1 We May Share LU Carlin [phone] Designated Person #1 Relationship Spouse Privacy Restrictions [...] after midnight, No makeup, No jewelry, Responsible Libertarian, Aware of surgery location, Pre-op education done, No ordered medications, Instructed to bring home medications SN - Preprocedure Comments Spoke with patient, Verbalizes/Nonverbally indicates understanding Notification Attempts 10/12/23 1345 LM RE: OR REPORT IN TIMES. Barriers to Learning None evident Teaching Method Explanation, Printed materials Preferred Spoken Language [place] Islander Preferred Written Language [place] Islander Teaching Evaluation Verbalizes/Nonverbally indicates understanding Safety Brochure [...] after midnight, No makeup, No jewelry, Responsible Libertarian, Aware of surgery location, Pre-op education done, No ordered medications, Instructed to bring home medications (Modified) Notification Attempts 10/12/23 1345 LM RE: OR REPORT IN TIMES. Patient's Current Physicians Patient's Current Physicians Discharge To, Anticipated Home independently Personal Devices, Patient Valuables None Admission Note-Nursing Patient History PreTest (Modified) . Assessment and Plan [place] Society of Anesthesiologists (ASA) physical status classification: [...] TYRA SONI MD on 10/13/2023 11:04 AM [facility] HospitalUezbryrn91-81-6144 History of Present illness Narrative* Mariana Acuña, SURVEYING TECHNICIAN - DIRECTOR OF NURSING - 10/04/2023 3:00 PM EST [facility] Primary Care Physician: Mark [...] is seen in the [facility] CLINIC of [facility] for migraines. Patient states she has suffered [...] (Probiotic) 1-250 BILLION-MG capsule Take by mouth. hmgrztgdcv-sbclayurzpbaf-flquivsi 50-325-40 MG tablet TAKE 1 TABLET BY [...] Onset High Blood Pressure Mother Sara Other ([id number]) Mother Sara fibromyalgia, anxiety issues Cancer Mother [...] to call the Department of Neurology at [phone] for any further concerns. Sincerely, CLEVELAND Patel [...] injection. CLEVELAND Patel CNP documented in this encounterSSelect [facility] OhioMdcqia37-82-6101 Telephone encounter Note* Telephone Encounter - Veronique Simeon - 08/24/2023 1:59 PM EST Faxed clinicals to the fax# provided for prevention dosing [facility] CenterInfsok51-25-7910 Miscellaneous Notes* Telephone Encounter - Veronique Simeon - 08/24/2023 1:59 PM EST Faxed clinicals to the fax# provided for prevention dosing * Telephone Encounter - Veronique Pike MA - 08/24/2023 1:27 PM EST I spoke with Veronique Lindsay with [facility] and she is submitting this information to [facility]. * Telephone Encounter - Sophie Garrido - 08/24/2023 11:54 AM EST Name of caller: Roxanna Contact phone number: [phone] Relationship to Patient: [facility] Provider: Domenico DE LA FUENTE Practice: Neurology, PL Chief Complaint/Reason for Call: Roxanna is requesting a call back for clarification on Rx. Nurtec. Roxanna states that the medication was originally prescribed for acute care but is now prescribed at preventative dosing. Roxanna is also requesting to have chart notes faxed to fax number [phone]. Please advise. Best time of day caller can be reached: Any Patient advised that office/PCP has 24-48 business hours to return their call: No documented in this encounterSSelect Medical Special[facility] Hospital [facility] OhioZzivqa73-82-9730 Telephone encounter Note* Telephone Encounter - Veronique Pike MA - 08/24/2023 1:27 PM EST I spoke with Veronique Lindsay with [facility] and she is submitting this information to [facility]. [facility] Tznpoe91-82-1793 Telephone encounter Note* Telephone Encounter - Sophie Garrido - 08/24/2023 11:54 AM EST Name of caller: Roxanna Contact phone number: [phone] Relationship to Patient: [facility] Provider: Domenico DE LA FUENTE Practice: Neurology, PL Chief Complaint/Reason for Call: Roxanna is requesting a call back for clarification on Rx. Nurtec. Roxanna states that the medication was originally prescribed for acute care but is now prescribed at preventative dosing. Roxanna is also requesting to have chart notes faxed to fax number [phone]. Please advise. Best time of day caller can be reached: Any Patient advised that office/PCP has 24-48 business hours to return their call: No [facility] Wwffdv92-87-1655 NoteBorderline elevated. Re-evaluation in 4-6 weeks is recommended if clinically indicated.[facility] ([place])Comment on above:Result Comment: On January 12, 2023, [facility] implemented a new fecal calprotectinmethod, the DiaSorin Liaison Calprotectin assay. For assistance with interpretation of results in patients undergoing serial monitoring, contact Client Services at [phone] or [phone] to discuss options, preferably within 7 days of issuing this report. Interpretation: <50.0 ug/g: Normal 50.0 ug/g - 120.0 ug/g: Borderline elevated. Re-evaluation in 4-6 weeks is recommended if clinically indicated. >120.0 ug/g: Elevated Performed By: [facility] [employer] [address] [id number] Head Up Operator Helper: Les Day IIIIA#: [id number] By: #### CALPRO ####[address] [place], [place] [id number] NoteCalprotectin InterpBorderline elevated. Re- evaluation in 4-6 weeks is recommended if clinically indicated.1 *ABN* (08/17/23 4:49 PM)AO Sendouts SSComment on above:Result Comment: On January 12, 2023, [facility] [employer] implemented a new fecal calprotectinmethod, the DiaSorin Liaison Calprotectin assay. For assistance with interpretation of results in patients undergoing serial monitoring, contact Client Services at [phone] or [phone] to discuss options, preferably within 7 days of issuing this report. Interpretation: <50.0 ug/g: Normal 50.0 ug/g - 120.0 ug/g: Borderline elevated. Re-evaluation in 4-6 weeks is recommended if clinically indicated. >120.0 ug/g: Elevated Performed By: [facility] [employer] [address] [id number] Head Up Operator Helper: Nicholas Reyes III, M.D. CLIA#: [id number] Telephone encounter Note* Telephone Encounter - CLEVELAND Patel CNP - 08/17/2023 10:13 AM EST Requested Prescriptions Signed Prescriptions Disp Refills tiZANidine (Zanaflex) 4 MG tablet 90 tablet 1 Sig: Take 1 tablet (4 mg) by mouth every 8 hours as needed for muscle spasms. 0 Refill(s) Authorizing Provider: MARIANA ACUÑA [facility] CenterMlpqkc47-19-3163 Miscellaneous Notes* Telephone Encounter - CLEVELAND Patel [...] Name of caller: Pharmacist Contact phone number: [phone] Relationship to Patient: Pharmacy Provider: Jose Acuña Practice: Neuro Chief Complaint/Reason for Call: tiZANidine (Zanaflex) 4 MG tablet [[id number]] Order Details Dose, Route, Frequency: As Directed Dispense Quantity: 90 tablet Refills: 0 Si Refill(s MISSING DIRECTIONS - please advise accordingly. Best time of day caller can be reached: any Patient advised that office/PCP has 24-48 business hours to return their call: No documented in this [facility]12-26-2023 Telephone encounter Note* Telephone Encounter - Magaly Jaimes - 08/17/2023 9:38 AM EST Name of caller: Pharmacist Contact phone number: [phone] Relationship to Patient: Pharmacy Provider: Jose Acuña Practice: Neuro Chief Complaint/Reason for Call: tiZANidine (Zanaflex) 4 MG tablet [[id number]] Order Details Dose, Route, Frequency: As Directed Dispense Quantity: 90 tablet Refills: 0 Si Refill(s MISSING DIRECTIONS - please advise accordingly. Best time of day caller can be reached: any Patient advised that office/PCP has 24-48 business hours to return their call: No [facility] CenterYpggst68-29-8923 History of Present illness Narrative* CLEVELAND Patel [...] 2. L Frontalis 10 units 3. R Credit Processor 10 units 4. L Credit Processor 10 units 5. R Temporalis 20 units [...] Patel CNP Ordering Provider: CLEVELAND Patel CNP [facility]: [id number] Lot#: [id number] Resolution Specialist: Allergan Patient Supplied?: No documented in this encounterSSelect Medical Specialty Hospital - Southeast OhioWnonvm32-94-0282 Evaluation + Plan note Future Scheduled Tests Radiology* ANTHONY Mammo Diagnostic Bilateral w/[place] 08/02/23 [facility] 12-06-2023 Telephone encounter Note* Telephone Encounter - Veronique Simeon - 07/28/2023 2:57 PM EST We have attempted to reach the patient several times regarding their medication refill with [facility]. They been unreachable via these methods; Phone call, SMS, LatinComicshart message and have not been heard from since May. If we are unable to get in contact with the patient, they will be discharged from [facility] services. If the patient reaches out to the office, please have them contact us as soon as possible at [phone]. Thank you and have a great day! [facility] CenterOymlol75-44-4387 Miscellaneous Notes* Telephone Encounter - Veronique Simeon - 07/28/2023 2:57 PM EST We have attempted to reach the patient several times regarding their medication refill with [facility]. They been unreachable via these methods; Phone call, SMS, MyChart message and have not been heard from since May. If we are unable to get in contact with the patient, they will be discharged from [facility] services. If the patient reaches out to the office, please have them contact us as soon as possible at [phone]. Thank you and have a great day! documented in this [facility]11-03-2023 History of Present illness Narrative* Mariana Domenico, CLEVELAND - DIRECTOR OF NURSING - 06/25/2023 10:00 AM EDT [facility] Primary Care Physician: Mark [...] is seen in the [facility]OLOGY CLINIC of [facility] for migraines. Patient states she has suffered [...] (Probiotic) 1-250 BILLION-MG capsule Take by mouth. ojjepfumtd-yptdtiopxvgrb-sfviruak 50-325-40 MG tablet TAKE 1 TABLET BY [...] Onset High Blood Pressure Mother Sara Other ([id number]) Mother Sara fibromyalgia, anxiety issues Cancer Mother [...] to call the Department of Neurology at [phone] for any further concerns. Sincerely, Mariana Acuña [...] injection. CLEVELAND Patel CNP documented in this [facility]09-25-2023 History of Present illness Narrative* CLEVELAND Patel [...] 2. L Frontalis 10 units 3. R Credit Processor 10 units 4. L Credit Processor 10 units 5. R Temporalis 30 units [...] Administered By MARIEL Ordering Provider: Mariana Acuña [facility]:[id number] Lot#: [id number] Resolution Specialist: Allergan Patient Supplied?: No, buy and bill documented in this [facility]08-09-2023 History of Present illness Narrative* CLEVELAND Patel CNP - 03/31/2023 1:45 PM EDT [facility] Primary Care Physician: Mark [...] is seen in the [facility]Y CL[facility]IC of [facility] for migraines. Patient states she has suffered [...] (Probiotic) 1-250 BILLION-MG capsule Take by mouth. omhzundjlw-qzwkugfvxoxet-nyyiaojl 50-325-40 MG tablet TAKE 1 TABLET BY [...] Cancer Other great Mat grandma pancreatic Other ([id number]) Mother fibromyalgia, anxiety issues Cancer Mother thyroid [...] to call the Department of Neurology at [phone] for any further concerns. Sincerely, CLEVELAND Patel [...] injection. CLEVELAND Patel CNP documented in this encounterSSelect Medical Specialty Hospital - [facility] OhioOkbmom99-36-5888 Telephone encounter Note* Telephone Encounter - Savana Wayne - 02/25/2023 3:07 PM EDT Noted --Scheduled pt [facility] [id number] Miscellaneous Notes* Telephone Encounter - Savana Wayne - 02/25/2023 3:07 PM EDT Noted --Scheduled pt * Telephone Encounter - Veronique Pike MA - 02/25/2023 3:01 PM EDT [place] * Telephone Encounter - Kacey Okeefe - 02/25/2023 2:41 PM EDT Judy from [facility] wanted Savana to know that they received the order for the pt's MRI and no authorization is required. Please advise. documented in this encounterSSelect Medical Specialty Hospital - Southeast OhioFcrkta13-68-4109 Telephone encounter Note* Telephone Encounter - Veronique Pike MA - 02/25/2023 3:01 PM EDT [place] [facility] CenterEbvymw11-08-7960 Telephone encounter Note* Telephone Encounter - Kacey Okeefe - 02/25/2023 2:41 PM EDT Judy from [facility] wanted Savana to know that they received the order for the pt's MRI and no authorization is required. Please advise. [facility] CenterZpzahj83-34-6818 History of Present illness Narrative* Mariana Acuña [...] 2. L Frontalis 10 units 3. R Credit Processor 10 units 4. L Credit Processor 10 units 5. R Temporalis 30 units [...] CLEVELAND Patel CNP 02/10/23 documented in this [facility]06-21-2023 History of Present illness Narrative* CLEVELAND Patel [...] 2. L Frontalis 10 units 3. R Credit Processor 10 units 4. L Credit Processor 10 units 5. R Temporalis 30 units [...] CNP Ordering Provider: CLEVELAND Patel CNP NDC: [id number] Lot#: [id number] Resolution Specialist: Allergan Patient Supplied?: No documented in this encounterSSelect Medical Specialty Hospital - [facility] OhioQbzxml46-45-5018 Telephone encounter Note* Telephone Encounter - CLEVELAND Patel CNP - 01/27/2023 12:09 PM EDT Requested Prescriptions Signed Prescriptions Disp Refills Rimegepant Sulfate (Nurtec) 75 MG tablet dispersible 16 tablet 5 Sig: TAKE 75 MG BY MOUTH ONCE EVERY OTHER DAY (MIGRAINE) Authorizing Provider: MARIANA ACUÑA [facility] CenterLnsrgy90-92-6694 Miscellaneous Notes* Telephone Encounter - CLEVELAND Patel CNP - 01/27/2023 12:09 PM EDT Requested Prescriptions Signed Prescriptions Disp Refills Rimegepant Sulfate (Nurtec) 75 MG tablet dispersible 16 tablet 5 Sig: TAKE 75 MG BY MOUTH ONCE EVERY OTHER DAY (MIGRAINE) Authorizing Provider: MARIANA ACUÑA documented in this [facility]04-06-2023 Note ORIGINAL EXAMINATION: TWO XRAY VIEWS OF [...] Sign Date: 11/26/2022 11:32:45 PM Ordering Provider: [facility]04-06-2023 Note ORIGINAL EXAMINATION: TWO XRAY VIEWS OF [...] Sign Date: 11/26/2022 11:32:45 PM Ordering Provider: Dia [place]03-15-2023 History of Present illness Narrative* CLEVELAND Patel [...] 2. L Frontalis 10 units 3. R Credit Processor 10 units 4. L Credit Processor 10 units 5. R Temporalis 30 units [...] Acuña CNP Ordering Provider: Mariana Acuña CNP [facility]:[id number] Lot#: [id number] Resolution Specialist: Allergan Patient Supplied?: No documented in this [facility] summary Author Diann Perez [facility] Note Date/Time January 19, 2025 12:09 pm [facility] Medical Records Department [address] [place] [address] Instructions for Home/Discharge Instructions 01/19/25 1207 MR#: [id number] Acct: [id number] Name: MICHELLE CARLIN Rep #:[id number] : 1980 44 From: Diann Perez MD PCP: Dr. Mark Shabazz MD Status :[facility] Discharge Instructions Diet Discharge Diet: No restrictions [...] With: Diann Perez MD When: Please call [phone] for an appointment to be seen in 2 week. Test Results: Test results from this visit will be discussed in further detail at your follow- up appointment, if applicable. Discharge Plan Admission Attending Provider: Diann Perez Primary Care Provider: Mark Shabazz Instructions Print Language: [place] Islander Discharge Orders/Prescriptions Prescriptions: New oxycodone 5 mg [...] 100 mg tablet 1,140 mg PO DAILY zcandjirlj-eycvhhxwgdimu-fryu 1 TABLET tablet 1 tab PO QHS Referrals / Follow Up: Mark Shabazz MD [Primary Care Provider] - Disposition Disposition (needs filled in before D/C Order can be placed): Home, Self Care 01/19/25 1209<Electronically signed by Diann Perez MD>Diann Perez MD CC: Dr. Mark Shabazz MD ~ Signed [facility] Work Phone: Evaluation + Plan note No data available for this section [facility] Evaluation + Plan note Future Appointments Appointment Date:09/24/2023 09:45:00 AM Scheduled Provider:ROXANA CLARK MD Location:[facility] Surg [facility] Appointment Type:GS T[employer] [facility] Evaluation + Plan note Future Appointments Appointment Date:11/12/2023 09:45:00 AM Scheduled Provider:ROXANA CLARK MD Location:[facility] Appointment Type:GS OV Post Op [facility] Evaluation + Plan note Future Appointments Appointment Date:11/16/2023 09:30:00 AM Scheduled Provider:ROXANA CLARK MD Location:Gen Surg [facility] Appointment Type:GS OV Post Op [facility] Evaluation noteNo assessment information available [facility] Work Phone: Evaluation note* Diagnosis Chronic migraine without aura, intractable, without status migrainosus- [facility] Diagnosis Chronic migraine without aura, intractable, without status migrainosus- Primary [facility] Diagnosis Chronic migraine without aura, intractable, without status migrainosus- Primary [facility] Diagnosis Chronic migraine without aura, intractable, without status migrainosus- Primary [facility] Diagnosis Chronic migraine without aura, intractable, without status migrainosus- Primary [facility] Chronic migraine without aura, intractable, without status migrainosus- Primary [facility] Diagnosis Chronic migraine without aura, intractable, without status migrainosus- Primary [facility] Diagnosis Myofascial pain- Primary Unspecified myalgia and myositis Chronic migraine without aura, intractable, without status migrainosus [facility] Diagnosis Intractable chronic migraine without aura and without status migrainosus- Primary Myofascial pain Unspecified myalgia and myositis [facility] Diagnosis Intractable chronic migraine without aura and without status migrainosus- Primary [facility] Diagnosis Intractable chronic migraine without aura and without status migrainosus- Primary [facility] Diagnosis Myofascial pain- Primary Unspecified myalgia and myositis Intractable chronic migraine without aura and without status migrainosus [facility] Diagnosis Chronic migraine without aura, intractable, without status migrainosus- Primary [facility] Diagnosis Intractable chronic migraine without aura and without status migrainosus- Primary Myofascial pain Unspecified myalgia and myositis [facility] Diagnosis Intractable chronic migraine without aura and without status migrainosus- Primary Myofascial pain Unspecified myalgia and myositis [facility] Diagnosis Intractable chronic migraine without aura and without status migrainosus- Primary Myofascial pain Unspecified myalgia and myositis [facility] Diagnosis Intractable chronic migraine without aura and without status migrainosus- Primary Myofascial pain Unspecified myalgia and myositis [facility] Diagnosis Intractable chronic migraine without aura and without status migrainosus- Primary Myofascial pain Unspecified myalgia and myositis [facility] Diagnosis Intractable chronic migraine without aura and without status migrainosus- Primary Myofascial pain Unspecified myalgia and myositis [facility] Dis[facility] No data available for this section [facility] Progress note No data available for this section [facility] Reason for referral (narrative)No reason for referral information [facility] Work Phone: Family History No Family History Records Found Relationship Condition Age at Onset Recorded Date/T raghav daughter Asthma Unknown father Hypertension Unknown mother Hypertension Unknown Disorder of thyroid Unknown Diabetes mellitus Unknown grandmother Malignant neoplasm of breast Unknown Malignant neoplasm Unknown Osteoporosis Unknown aunt Malignant neoplasm of breast Unknown Advance Directives No Advanced Directives Records Found Advance Directive Response Recorded Date/ Time Advance Directives No July 30, 2015 1:53pm Living Will No March 27, 2019 5:08pm Power of Swedger No March 27 5:08pm Advance Directive Response Recorded Date/ Time Living Will No March 27, 2019 5:08pm Do you have a Healthcare Power of Swedger? No March 27, 2019 5:08pm Advance Directives No July 30, 2015 1:53pm Advance Directive Response Recorded Date/ Time Do you have a Healthcare Power of [place]ger? No January 10, 2025 11:26am Advance Directives No July 30, 2015 1:53pm Advance Directive Response Recorded Date/ Time Do you have a Healthcare Power of [place]ger? No January 10, 2025 11:26am Advance Directives No April 10:32am Summary Purpose Reason for Referral Specialty Diagnoses / Procedures Referred By Zain lindsay Referred To Contact Diagnoses Intractable chronic migraine without aura and without status migrainosus Mariana Acuña, SURVEYING TECHNICIAN - DIRECTOR OF NURSING [address] [place] [address] Referral ID Status Reason Start Date Expiration Date V isits Requested Visits Authorized [id number] Pending Review 02/16/2024 02/10/2025 1 1 Specialty Diagnoses / Procedures Referred By Contac t Referred To Contact Physical Therapy Diagnoses Chronic migraine without aura, intractable, without status migrainosus Procedures [place] OFFICE/OUTPATIENT NEW HIGH MDM 60-74 MINUTES Mariana Acuña APRN - [facility] [address] [place] [address] Referral ID Status Reason Start Date Expiration Date Visits Requested Visits Authorized [id number] Pending Review Eval and Treat 02/10/2023 08/09/2023 99 99 Specialty Diagnoses / Procedures Referred By Contac t Referred To Contact Radiology Diagnoses Chronic migraine without aura, intractable, without status migrainosus Procedures MR brain wo contrast Mariana Acuña SURVEYING TECHNICIAN - [facility] [address] [place] [address] Referral ID Status Reason Start Date Expiration Date V isits Requested Visits Authorized [id number] Pending Review 02/10/2023 08/09/2023 1 1 Specialty Diagnoses / Procedures Referred By Zain t Referred To Contact Diagnoses Chronic migraine without aura, intractable, without status migrainosus Mariana Acuña APRN - [facility] [address] [place] [address] Referral ID Status Reason Start Date Expiration Date V isits Requested Visits Authorized [id number] Pending Review 02/10/2023 08/09/2023 1 1 Chief Complaint and Reason for Visit Chief Complaint Admit Date E ORDERS August 15, 2024 6:33am 3 M FU September 19, 2024 1 0:18am Left breast lump per NH November 01, 2024 3:32pm Reason for Visit [...] 2025 10:54 am Cervical segment dysfunction January 09, 025 10:54am Migraines January 09, 2025 10:54 [...] 10:52 am Irritable bowel syndrome with diarrhea J trevor 2024 10:52am Chief Complaint Admit Date Left breast lump [...] M FU February 20, 2025 10:52 am INT LABS February 21, 2025 6:42a m ACUPUNCTURE/ADJUSTMENT February 22, 2025 4: 37pm Reason for Visit Admit Date Family history [...] Cervical segment dysfunction January 09 025 10:54am Neck pain January 09, 2025 10:54 [...] 9:53am Migraines February 06, 2025 9:53 am Abdominal pain February 20, 2025 10:52 am Gastroparesis February 20, 2025 10:52 am IBD (inflammatory bowel disease) February 10:52am Irritable bowel syndrome with diarrhea J trevor 2024 10:52am Cervical segment dysfunction February 22 4:37pm Segmental and somatic dysfunction of tho racic region February 22, 2025 4:37pm Segmental dysfunction of lumbar region J [facility] 2024 4:37pm Chief Complaint Admit Date BREAST LUMP November 22, 2024 9:28 am DENSE BREASTS, SIGNIFICANT FAMILY HX, LT LUMP November 28, 2024 11:08am DISCUSS MRI RESULTS & OPTIONS December 25 2:58pm IBD January 03, 2025 11:59 am EST CARE January 09, 2025 10:54 am back pain [...] M FU February 20, 2025 10:52 am INT LABS February 21, 2025 6:42a m ACUPUNCTURE/ADJUSTMENT February 22, 2025 4: 37pm ACUPUNCTURE/ADJUSTMENT March 15, 2025 1 0:30am Reason for Visit Admit Date At high risk for breast cancer November [...] 12:53pm Segmental dysfunction of lumbar region J [facility] 2024 12:53pm Cervical segment dysfunction January 29 4:11pm Segmental and somatic dysfunction of tho racic region January 29, 2025 4:11pm Segmental dysfunction of lumbar region J [facility] 2024 4:11pm Back pain February 06, 2025 9:53 am Cervical segment dysfunction February 06, 2025 9:53am Segmental and somatic dysfunction of tho racic region February 06, 2025 9:53am Segmental dysfunction of lumbar region J [facility] 2024 9:53am Migraines February 06, 2025 9:53 am Abdominal pain February 20, 2025 10:52 am Gastroparesis February 20, 2025 10:52 am IBD (inflammatory bowel disease) February 10:52am Irritable bowel syndrome with diarrhea J [facility] 2024 10:52am Cervical segment dysfunction February 22 4:37pm Segmental and somatic dysfunction of tho racic region February 22, 2025 4:37pm Segmental dysfunction of lumbar region J [facility] 2024 4:37pm Migraines February 22, 2025 4:37p m Cervical segment dysfunction March 15, 2025 10:30am Segmental and somatic dysfunction of tho racic region March 15, 2025 10:30am Segmental dysfunction of lumbar region J [facility] 2024 10:30am Chief Complaint Admit Date BREAST LUMP November 22, 2024 9:28 am DENSE BREASTS, SIGNIFICANT FAMILY HX, LT LUMP November 28, 2024 11:08am DISCUSS MRI RESULTS & OPTIONS December 25 2:58pm IBD January 03, 2025 11:59 am EST CARE January 09, 2025 10:54 am back pain [...] M FU February 20, 2025 10:52 am INT LABS February 21, 2025 6:42a m ACUPUNCTURE/ADJUSTMENT February 22, 2025 4: 37pm ACUPUNCTURE/ADJUSTMENT March 15, 2025 1 0:30am ACUPUNCTURE/ADJUSTMENT March 22, 2025 1 1:28am Reason for Visit Admit Date At high risk for breast cancer November [...] 9:53am Segmental dysfunction of lumbar region J [facility] 2024 9:53am Migraines February 06, 2025 9:53 am Abdominal pain February 20, 2025 10:52 am Gastroparesis February 20, 2025 10:52 am IBD (inflammatory bowel disease) February 10:52am Irritable bowel syndrome with diarrhea J [facility] 2024 10:52am Cervical segment dysfunction February 22 4:37pm Segmental and somatic dysfunction of tho racic region February 22, 2025 4:37pm Segmental dysfunction of lumbar region J [facility] 2024 4:37pm Migraines February 22, 2025 4:37p m Cervical segment dysfunction March 15, 2025 10:30am Segmental and somatic dysfunction of tho racic region March 15, 2025 10:30am Segmental dysfunction of lumbar region J [facility] 2024 10:30am Migraines March 15, 2025 10:3 0am Cervical segment dysfunction March 22, 2025 11:28am Segmental and somatic dysfunction of tho racic region March 22, 2025 11:28am Segmental dysfunction of lumbar region [facility] 2024 11:28am Chief Complaint Admit Date DISCUSS MRI RESULTS & OPTIONS December 25 2:58pm IBD January 03, 2025 11:59 am EST CARE January 09, 2025 10:54 am back pain [...] M FU February 20, 2025 10:52 am INT LABS February 21, 2025 6:42a m ACUPUNCTURE/ADJUSTMENT February 22, 2025 4: 37pm ACUPUNCTURE/ADJUSTMENT March 15, 2025 1 0:30am ACUPUNCTURE/ADJUSTMENT March 22, 2025 1 1:28am ACUPUNCTURE/ADJUSTMENT March 29, 2025 9:56am Reason for Visit Admit Date At high risk for breast cancer December [...] 12:53pm Segmental dysfunction of lumbar region J [facility] 2024 12:53pm Cervical segment dysfunction January 29 [...] 9:53am Migraines February 06, 2025 9:53 am Abdominal pain February 20, 2025 10:52 am Gastroparesis February 20, 2025 10:52 am IBD (inflammatory bowel disease) February 10:52am Irritable bowel syndrome with diarrhea J [facility] 2024 10:52am Cervical segment dysfunction February 22 4:37pm Segmental and somatic dysfunction of tho racic region February 22, 2025 4:37pm Segmental dysfunction of lumbar region J [facility] 2024 4:37pm Migraines February 22, 2025 4:37p m Cervical segment dysfunction March 15, 2025 10:30am Segmental and somatic dysfunction of tho racic region March 15, 2025 10:30am Segmental dysfunction of lumbar region J [facility] 2024 10:30am Migraines March 15, 2025 10:3 0am Cervical segment dysfunction March 22, 2025 11:28am Segmental and somatic dysfunction of pel [place] region March 22, 2025 11:28am Segmental and somatic dysfunction of tho racic region March 22, 2025 11:28am Segmental dysfunction of lumbar region J [facility] 2024 11:28am Migraines March 22, 2025 11:2 8am Cervical segment dysfunction March 29, 2025 9:56am Segmental and somatic dysfunction of pel [place] region March 29, 2025 9:56am Segmental and somatic dysfunction of tho racic region March 29, 2025 9:56am Segmental dysfunction of lumbar region A [facility] 2024 9:56am Chief Complaint Admit Date DISCUSS MRI RESULTS & OPTIONS December 25 2:58pm IBD January 03, 2025 11:59 am EST CARE January 09, 2025 10:54 am back pain [...] M FU February 20, 2025 10:52 am INT LABS February 21, 2025 6:42a m ACUPUNCTURE/ADJUSTMENT February 22, 2025 4: 37pm ACUPUNCTURE/ADJUSTMENT March 15, 2025 1 0:30am ACUPUNCTURE/ADJUSTMENT March 22, 2025 1 1:28am ACUPUNCTURE/ADJUSTMENT March 29, 2025 9:56am ACUPUNCTURE/ADJUSTMENT April 03, 2025 11:10am Reason for Visit Admit Date At high risk for breast cancer December 25, 2024 2:58pm Family history of breast cancer December 25, 2024 2:58pm Left breast mass December 25, 2024 2:58pm Back pain January 09, 2025 10:54 am Cervical segment dysfunction January 09 025 10:54am Neck pain January 09, 2025 10:54 am Segmental and somatic dysfunction of tho racic region January 09, 2025 10:54am Segmental dysfunction of lumbar region M ay 2024 10:54am Migraines January 09, 2025 10:54 am Cervical segment dysfunction January 23 12:53pm Segmental and somatic dysfunction of tho racic region January 23, 2025 12:53pm Segmental dysfunction of lumbar region J [facility] 2024 12:53pm Cervical segment dysfunction January 29 4:11pm Segmental and somatic dysfunction of tho racic region January 29, 2025 4:11pm Segmental dysfunction of lumbar region J [facility] 2024 4:11pm Back pain February 06, 2025 9:53 am Cervical segment dysfunction February 06, 2025 9:53am Segmental and somatic dysfunction of tho racic region February 06, 2025 9:53am Segmental dysfunction of lumbar region J [facility] 2024 9:53am Migraines February 06, 2025 9:53 am Abdominal pain February 20, 2025 10:52 am Gastroparesis February 20, 2025 10:52 am IBD (inflammatory bowel disease) February 10:52am Irritable bowel syndrome with diarrhea J [facility] 2024 10:52am Cervical segment dysfunction February 22 4:37pm Segmental and somatic dysfunction of tho racic region February 22, 2025 4:37pm Segmental dysfunction of lumbar region J [facility] 2024 4:37pm Migraines February 22, 2025 4:37p m Cervical segment dysfunction March 15, 2025 10:30am Segmental and somatic dysfunction of tho racic region March 15, 2025 10:30am Segmental dysfunction of lumbar region J [facility] 2024 10:30am Migraines March 15, 2025 10:3 0am Cervical segment dysfunction March 22, 2025 11:28am Segmental and somatic dysfunction of pel [place] region March 22, 2025 11:28am Segmental and somatic dysfunction of tho racic region March 22, 2025 11:28am Segmental dysfunction of lumbar region J [facility] 2024 11:28am Migraines March 22, 2025 11:2 8am Cervical segment dysfunction March 29, 2025 9:56am Segmental and somatic dysfunction of pel [place] region March 29, 2025 9:56am Segmental and somatic dysfunction of tho racic region March 29, 2025 9:56am Segmental dysfunction of lumbar region A [facility] 2024 9:56am Migraines March 29, 2025 9:5 6am Cervical segment dysfunction March 11:10am Segmental and somatic dysfunction of pel [place] region April 03, 2025 11:10am Segmental and somatic dysfunction of tho racic region April 03, 2025 11:10am Segmental dysfunction of lumbar region A [facility] 2024 11:10am Chief Complaint Admit Date DISCUSS MRI RESULTS & OPTIONS December 25 025 2:58pm IBD January 03, 2025 11:59 am EST CARE January 09, 2025 10:54 am back pain [...] M FU February 20, 2025 10:52 am INT LABS February 21, 2025 6:42a m ACUPUNCTURE/ADJUSTMENT February 22, 2025 4: 37pm ACUPUNCTURE/ADJUSTMENT March 15, 2025 1 0:30am ACUPUNCTURE/ADJUSTMENT March 22, 2025 1 1:28am ACUPUNCTURE/ADJUSTMENT March 29, 2025 9:56am ACUPUNCTURE/ADJUSTMENT April 03, 2025 11:10am ACUPUNCTURE/ADJUSTMENT April 16, 2025 1:03pm Reason for Visit Admit Date At high risk for breast cancer December [...] 9:53am Migraines February 06, 2025 9:53 am Abdominal pain February 20, 2025 10:52 am Gastroparesis February 20, 2025 10:52 am IBD (inflammatory bowel disease) February 10:52am Irritable bowel syndrome with diarrhea J [facility] 2024 10:52am Cervical segment dysfunction February 22 4:37pm Segmental and somatic dysfunction of tho racic region February 22, 2025 4:37pm Segmental dysfunction of lumbar region J [facility] 2024 4:37pm Migraines February 22, 2025 4:37p m Cervical segment dysfunction March 15, 2025 10:30am Segmental and somatic dysfunction of tho racic region March 15, 2025 10:30am Segmental dysfunction of lumbar region J [facility] 2024 10:30am Migraines March 15, 2025 10:3 0am Cervical segment dysfunction March 22, 2025 11:28am Segmental and somatic dysfunction of [place] March 22, 2025 11:28am Segmental and somatic dysfunction of tho racic region March 22, 2025 11:28am Segmental dysfunction of lumbar region J [facility] 2024 11:28am Migraines March 22, 2025 11:2 8am Cervical segment dysfunction March 29, 2025 9:56am Segmental and somatic dysfunction of pel [place] region March 29, 2025 9:56am Segmental and somatic dysfunction of tho racic region March 29, 2025 9:56am Segmental dysfunction of lumbar region A ust 2024 9:56am Migraines March 29, 2025 9:5 6am Cervical segment dysfunction March 11:10am Segmental and somatic dysfunction of pel [place] region April 03, 2025 11:10am Segmental and somatic dysfunction of tho racic region April 03, 2025 11:10am Segmental dysfunction of lumbar region A [facility] 2024 11:10am Migraines April 03, 2025 11 :10am Cervical segment dysfunction March 1:03pm Segmental and somatic dysfunction of pel [place] region April 16, 2025 1:03pm Segmental and somatic dysfunction of tho racic region April 16, 2025 1:03pm Segmental dysfunction of lumbar region A [facility] 2024 1:03pm Chief Complaint Admit Date DISCUSS MRI RESULTS & OPTIONS December 25 025 2:58pm IBD January 03, 2025 11:59 am EST CARE January 09, 2025 10:54 am back pain [...] M FU February 20, 2025 10:52 am INT LABS February 21, 2025 6:42a m ACUPUNCTURE/ADJUSTMENT February 22, 2025 4: 37pm ACUPUNCTURE/ADJUSTMENT March 15, 2025 1 0:30am ACUPUNCTURE/ADJUSTMENT March 22, 2025 1 1:28am ACUPUNCTURE/ADJUSTMENT March 29, 2025 9:56am ACUPUNCTURE/ADJUSTMENT April 03, 2025 11:10am ACUPUNCTURE/ADJUSTMENT April 16, 2025 1:03pm ACUPUNCTURE/ADJUSTMENT April 24 9:29am Reason for Visit Admit Date At high risk for breast cancer December 25, 2024 2:58pm Family history of breast cancer December 25, 2024 2:58pm Left breast mass December 25, 2024 2:58pm Cervical segment dysfunction January 09 025 10:54am Neck pain January 09, 2025 10:54 am Segmental and somatic dysfunction of tho racic region January 09, 2025 10:54am Segmental dysfunction of lumbar region M ay 2024 10:54am Back pain January 09, 2025 10:54 am Migraines January 09, 2025 10:54 am Cervical [...] 9:53am Migraines February 06, 2025 9:53 am Abdominal pain February 20, 2025 10:52 am Gastroparesis February 20, 2025 10:52 am IBD (inflammatory bowel disease) February 10:52am Irritable bowel syndrome with diarrhea J [facility] 2024 10:52am Cervical segment dysfunction February 22 4:37pm Segmental and somatic dysfunction of tho racic region February 22, 2025 4:37pm Segmental dysfunction of lumbar region J [facility] 2024 4:37pm Migraines February 22, 2025 4:37p m Cervical segment dysfunction March 15, 2025 10:30am Segmental and somatic dysfunction of tho racic region March 15, 2025 10:30am Segmental dysfunction of lumbar region J [facility] 2024 10:30am Migraines March 15, 2025 10:3 0am Cervical segment dysfunction March 22, 2025 11:28am Segmental and somatic dysfunction of pel [place] March 22, 2025 11:28am Segmental and somatic dysfunction of tho racic region March 22, 2025 11:28am Segmental dysfunction of lumbar region J [facility] 2024 11:28am Migraines March 22, 2025 11:2 8am Cervical segment dysfunction March 29, 2025 9:56am Segmental and somatic dysfunction of pel [place] March 29, 2025 9:56am Segmental and somatic dysfunction of tho racic region March 29, 2025 9:56am [email or web address] 9:56am Migraines March 29, 2025 9:5 6am Cervical segment dysfunction March 11:10am Segmental and somatic dysfunction of pel [place] region April 03, 2025 11:10am Segmental and somatic dysfunction of tho racic region April 03, 2025 11:10am Segmental dysfunction of lumbar region A [facility] 2024 11:10am Migraines April 03, 2025 11 :10am Cervical segment dysfunction March 1:03pm Segmental and somatic dysfunction of pel [place] region April 16, 2025 1:03pm Segmental and somatic dysfunction of tho racic region April 16, 2025 1:03pm Segmental dysfunction of lumbar region A [facility] 2024 1:03pm Back pain April 16, 2025 1: 03pm Cervical segment dysfunction April 242024 9:29am Segmental and somatic dysfunction of pel [place] region April 24, 2025 9:29am Segmental and somatic dysfunction of tho racic region April 24, 2025 9:29am Segmental dysfunction of lumbar region S eptember 2024 9:29am Chief Complaint Admit Date IBD January 03, 2025 11:59 am EST CARE January 09, 2025 10:54 am back pain [...] M FU February 20, 2025 10:52 am INT LABS February 21, 2025 6:42a m ACUPUNCTURE/ADJUSTMENT February 22, 2025 4: 37pm ACUPUNCTURE/ADJUSTMENT March 15, 2025 1 0:30am ACUPUNCTURE/ADJUSTMENT March 22, 2025 1 1:28am ACUPUNCTURE/ADJUSTMENT March 29, 2025 9:56am ACUPUNCTURE/ADJUSTMENT April 03, 2025 11:10am ACUPUNCTURE/ADJUSTMENT April 16, 2025 1:03pm ACUPUNCTURE/ADJUSTMENT April 24 9:29am ACUPUNCTURE/ADJUSTMENT April 30 10:55am Reason for Visit Admit Date Cervical segment dysfunction January 09 10:54am Neck pain January 09, 2025 10:54 am Segmental and somatic dysfunction of tho racic region January 09, 2025 10:54am Segmental dysfunction of lumbar region M ay 2024 10:54am Back pain January 09, 2025 10:54 am Migraines January 09, 2025 10:54 am Cervical segment dysfunction January 23 12:53pm Segmental and somatic dysfunction of tho racic region January 23, 2025 12:53pm Segmental dysfunction of lumbar region J [facility] 2024 12:53pm Cervical segment dysfunction January 29 4:11pm Segmental and somatic dysfunction of tho racic region January 29, 2025 4:11pm Segmental dysfunction of lumbar region J [facility] 2024 4:11pm Back pain February 06, 2025 9:53 am Cervical segment dysfunction February 06, 2025 9:53am Segmental and somatic dysfunction of tho racic region February 06, 2025 9:53am Segmental dysfunction of lumbar region J [facility] 2024 9:53am Migraines February 06, 2025 9:53 am Abdominal pain February 20, 2025 10:52 am Gastroparesis February 20, 2025 10:52 am IBD (inflammatory bowel disease) February 10:52am Irritable bowel syndrome with diarrhea J [facility] 2024 10:52am Cervical segment dysfunction February 22 4:37pm Segmental and somatic dysfunction of tho racic region February 22, 2025 4:37pm Segmental dysfunction of lumbar region J [facility] 2024 4:37pm Migraines February 22, 2025 4:37p m Cervical segment dysfunction March 15, 2025 10:30am Segmental and somatic dysfunction of tho racic region March 15, 2025 10:30am Segmental dysfunction of lumbar region J [facility] 2024 10:30am Migraines March 15, 2025 10:3 0am Cervical segment dysfunction March 22, 2025 11:28am Segmental and somatic dysfunction of pel [place] region March 22, 2025 11:28am Segmental and somatic dysfunction of tho racic region March 22, 2025 11:28am Segmental dysfunction of lumbar region J [facility] 2024 11:28am Migraines March 22, 2025 11:2 8am Cervical segment dysfunction March 29, 2025 9:56am Segmental and somatic dysfunction of pel [place] region March 29, 2025 9:56am Segmental and somatic dysfunction of tho racic region March 29, 2025 9:56am Segmental dysfunction of lumbar region A [facility]ust 2024 9:56am Migraines March 29, 2025 9:5 6am Cervical segment dysfunction March 11:10am Segmental and somatic dysfunction of pel [place] region April 03, 2025 11:10am Segmental and somatic dysfunction of tho racic region April 03, 2025 11:10am Segmental dysfunction of lumbar region A ugust 2024 11:10am Migraines April 03, 2025 11 :10am Cervical segment dysfunction March 1:03pm Segmental and somatic dysfunction of pel [place] region April 16, 2025 1:03pm Segmental and somatic dysfunction of tho racic region April 16, 2025 1:03pm Segmental dysfunction of lumbar region A ugust 2024 1:03pm Back pain April 16, 2025 1: 03pm Cervical segment dysfunction April 242024 9:29am Segmental and somatic dysfunction of pel [place] region April 24, 2025 9:29am Segmental and somatic dysfunction of tho racic region April 24, 2025 9:29am Segmental dysfunction of lumbar region S eptember 2024 9:29am Migraines April 24, 2025 9:29am Cervical segment dysfunction April 302024 10:55am Segmental and somatic dysfunction of pel [place] region April 30, 2025 10:55am Segmental and somatic dysfunction of tho racic region April 30, 2025 10:55am Segmental dysfunction of lumbar region S eptember 2024 10:55am Additional Source Comments Goals (unrecognized section and [...] team informatio n (unrecognized section and content) Draw Frame Tender Relationship Specialty Start Date End Date Mark Shabazz [address] [facility] [address] [place] [id number] PCP - General 02/03/22 Draw Frame Tender Relationship Specialty Start Date End Date Mark Shabazz [address] [place] [address] [place] [address] PCP - General 02/03/22 Draw Frame Tender Relationship Specialty Start Date End Date Mark Shabazz [address] [place] [address] [place] [address] PCP - General 02/03/22 Draw Frame Tender Relationship Specialty Start Date End Date Mark Shabazz [address] [place] [address] [place] [address] PCP - General 02/03/22 Draw Frame Tender Relationship Specialty Start Date End Date Mark Shabazz [address] [place] [address] [place] [address] PCP - General 02/03/22 Draw Frame Tender Relationship Specialty Start Date End Date Damien Shabazzhumphreyclaudia Schneider [address] [place] [address] [place] [address] PCP - General 02/03/22 Draw Frame Tender Relationship Specialty Start Date End Date Mark Shabazz [address] [place] [address] [place] [address] PCP - General 02/03/22 Draw Frame Tender Relationship Specialty Start Date End Date Mark Shabazz [address] [place] [address] [place] [address] PCP - General 02/03/22 Draw Frame Tender Relationship Specialty Start Date End Date Mark Shabazz [address] [place] [address] [place] [address] PCP - General 02/03/22 Draw Frame Tender Relationship Specialty Start Date End Date Mark Shabazz [address] [place] [address] [place] [address] PCP - General 02/03/22 Draw Frame Tender Relationship Specialty Start Date End Date Mark Shabazz [address] [place] [address] [place] [address] PCP - General 02/03/22 Draw Frame Tender Relationship Specialty Start Date End Date Mark Shabazz [address] [place] [address] [place] [address] PCP - General 02/03/22 Draw Frame Tender Relationship Specialty Start Date End Date Mark Shabazz [address] [place] [address] [place] [address] PCP - General 02/03/22 Draw Frame Tender Relationship Specialty Start Date End Date Mark Shabazz [address] [place] [address] [place] [address] PCP - General 02/03/22 Draw Frame Tender Relationship Specialty Start Date End Date Mark Shabazz [address] [place] [address] [place] [address] PCP - General 02/03/22 Draw Frame Tender Relationship Specialty Start Date End Date Mark Shabazz [address] [place] [address] [place] [address] PCP - General 02/03/22 Draw Frame Tender Relationship Specialty Start Date End Date Mark Shabazz [address] [place] [address] [place] [address] PCP - General 02/03/22 Draw Frame Tender Relationship Specialty Start Date End Date Mark Shabazz [address] [place] [address] [place] [address] PCP - General 02/03/22 Draw Frame Tender Relationship Specialty Start Date End Date Mark Shabazz [address] [place] [address] [place] [address] PCP - General 02/03/22 Draw Frame Tender Relationship Specialty Start Date End Date Mark Shabazz [address] [place] [address] [place] [address] PCP - General 02/03/22 Draw Frame Tender Relationship Specialty Start Date End Date Mark Shabazz [address] [place] [address] [place] [address] PCP - General 02/03/22 Draw Frame Tender Relationship Specialty Start Date End Date Mark Shabazz [address] [place] [address] [place] [address] PCP - General 02/03/22 Draw Frame Tender Relationship Specialty Start Date End Date Mark Shabazz [address] [place] [address] [place] [address] PCP - General 02/03/22 Team Status: Active Member Role Status Dates Dr. Mark Shabazz MD Primary Care Provider Acti ve Team Status: Inactive Member Role Status Dates Dr. Mark Shabazz MD Primary Care Provider Acti ve Start: August 15, 2024 End: August 15, 2024 Jayla Dixon NP-C Attending Provider Active S tart: August 15, 2024 End: August 15, 2024 Jayla Dixon NP-Dylan Referring Provider Active S tart: August 15, [...] End: November 01, 2024 Mariana Cortez NP, TANK CAR RECONDITIONER-C Attending Provider Active Start: November 01, 2024 End: November 01, 2024 Team Status: Inactive Member Role Status Dates Dr. Mark Shabazz MD Primary Care Provider Acti ve Start: November 01, 2024 End: November 01, 2024 Mariana Cortez NP, TANK CAR RECONDITIONER-C Attending Provider Active Start: November 01, 2024 End: November 01, 2024 Mariana Cortez NP, TANK CAR RECONDITIONER-C Referring Provider Active Start: November 01, 2024 [...] November 28, 2024 End: November 28, 2024 Draw Frame Tender Relationship Specialty Start Date End Date Mark Shabazz [address] [facility] [address] [place] [id number] PCP - General 02/03/22 Team Status: Inactive [...] January 29, 2025 End: January 29, 2025 Draw Frame Tender Relationship Specialty Start Date End Date Mark Shabazz [address] [facility] [place] [address] [place] [id number] PCP - General 02/03/22 Team Status: Active [...] End: November 01, 2024 Mariana Cortez NP TANK CAR RECONDITIONER-C Attending Provider Active Start: November 01, 2024 End: November 01, 2024 Team Status: Inactive Member Role/Relationship Status Dates Dr. Mark Shabazz MD Primary Care Provider Acti ve Start: November 01, 2024 End: November 01, 2024 Mariana Cortez TANK CAR RECONDITIONER, TANK CAR RECONDITIONER-C Attending Provider Active Start: November 01, 2024 End: November 01, 2024 Mariana Cortez TANK CAR RECONDITIONER, TANK CAR RECONDITIONER-C Referring Provider Active Start: November 01, 2024 End: November 01, 2024 Team Status: Inactive Member Role/Relationship Status Dates Dr. Mark Shabazz MD Primary Care Provider Acti ve Start: November 14, 2024 End: November 14, 2024 KEM BairdC Attending Provider Active Start: November 14, 2024 End: November 14, 2024 Maryjane Alvarado NP-C Referring Provider Active Start: November 14, 2024 [...] February 20, 2025 End: February 20, 2025 Team Status: Active Member Role/Relationship Status Dates Dr. Mark Shabazz MD Primary Care Provider Acti ve Start: February 21, 2025 Dr. Unruly Toscano DO Attending Provider Active Start: February 21, 2025 Dr. Unruly Toscano DO Referring Provider Active Start: February 21, 2025 Dr. Mirna Gunderson DC Other Provider Active Start : February 21, 2025 Team Status: Inactive Member Role/Relationship Status Dates Dr. Mark Shabazz MD Primary Care Provider Acti ve Start: February 22, 2025 End: February 22, 2025 Dr. Mark Shabazz MD Referring Provider Active Start: February 22, 2025 End: February 22, 2025 Dr. Mirna Gunderson DC Attending Provider Active S tart: February 22, 2025 End: February 22, 2025 Team Status: Inactive Member Role/Relationship Status Dates Dr. Mark Shabazz MD Primary Care Provider Acti ve Start: February 21, 2025 End: February 21, 2025 Dr. Unruly Toscano DO Attending Provider Active Start: February 21, 2025 End: February 21, 2025 Dr. Unruly Toscano DO Referring Provider Active Start: February 21, 2025 End: February 21, 2025 Dr. Mirna Gunderson DC Other Provider Active Start : February 21, 2025 End: February 21, 2025 Draw Frame Tender Relationship Specialty Start Date End Date Mark Shabazz [address] [address] PCP - General 02/03/22 Team Status: Inactive Member Role/Relationship Status Dates [...] February 20, 2025 End: February 20, 2025 Team Status: Inactive Member Role/Relationship Status Dates Dr. Mark Shabazz MD Primary Care Provider Acti ve Start: February 21, 2025 End: February 21, 2025 Dr. Unruly Toscano DO Attending Provider Active Start: February 21, 2025 End: February 21, 2025 Dr. Unruly Toscano DO Referring Provider Active Start: February 21, 2025 End: February 21, 2025 Dr. Mirna Gunderson DC Other Provider Active Start : February 21, 2025 End: February 21, 2025 Team Status: Inactive Member Role/Relationship Status Dates Dr. Mark Shabazz MD Primary Care Provider Acti ve Start: February 22, 2025 End: February 22, 2025 Dr. Mark Shabazz MD Referring Provider Active Start: February 22, 2025 End: February 22, 2025 Dr. Mirna Gunderson DC Attending Provider Active S tart: February 22, 2025 End: February 22, 2025 Team Status: Inactive Member Role/Relationship Status Dates Dr. Mark Shabazz MD Primary Care Provider Acti ve Start: March 15, 2025 End: March 15, 2025 Dr. Mark Shabazz MD Referring Provider Active Start: March 15, 2025 End: March 15, 2025 Dr. Mirna Gunderson DC Attending Provider Active S tart: March 15, 2025 End: March 15, 2025 Team Status: Inactive Member Role/Relationship Status Dates Dr. Mark Shabazz MD Primary Care Provider Acti ve Start: March 22, 2025 End: March 22, 2025 Dr. Mark Shabazz MD Referring Provider Active Start: March 22, 2025 End: March 22, 2025 Dr. Mirna Gunderson DC Attending Provider Active S tart: March 22, 2025 End: March 22, 2025 Team Status: Inactive Member Role/Relationship Status [...] February 20, 2025 End: February 20, 2025 Team Status: Inactive Member Role/Relationship Status Dates Dr. Mark Shabazz MD Primary Care Provider Acti ve Start: February 21, 2025 End: February 21, 2025 Dr. Unruly Toscano DO Attending Provider Active Start: February 21, 2025 End: February 21, 2025 Dr. Unruly Toscano DO Referring Provider Active Start: February 21, 2025 End: February 21, 2025 Dr. Mirna Gunderson DC Other Provider Active Start : February 21, 2025 End: February 21, 2025 Team Status: Inactive Member Role/Relationship Status Dates Dr. Mark Shabazz MD Primary Care Provider Acti ve Start: February 22, 2025 End: February 22, 2025 Dr. Mark Shabazz MD Referring Provider Active Start: February 22, 2025 End: February 22, 2025 Dr. Mirna Gunderson DC Attending Provider Active S tart: February 22, 2025 End: February 22, 2025 Team Status: Inactive Member Role/Relationship Status Dates Dr. Mark Shabazz MD Primary Care Provider Acti ve Start: March 15, 2025 End: March 15, 2025 Dr. Mark Shabazz MD Referring Provider Active Start: March 15, 2025 End: March 15, 2025 Dr. Mirna Gunderson DC Attending Provider Active S tart: March 15, 2025 End: March 15, 2025 Team Status: Inactive Member Role/Relationship Status Dates Dr. Mark Shabazz MD Primary Care Provider Acti ve Start: March 22, 2025 End: March 22, 2025 Dr. Mark Shabazz MD Referring Provider Active Start: March 22, 2025 End: March 22, 2025 Dr. Mirna Gunderson DC Attending Provider Active S tart: March 22, 2025 End: March 22, 2025 Team Status: Inactive Member Role/Relationship Status Dates Dr. Mark Shabazz MD Primary Care Provider Acti ve Start: March 29, 2025 End: March 29, 2025 Dr. Mark Shabazz MD Referring Provider Active Start: March 29, 2025 End: March 29, 2025 Dr. Mirna Gunderson DC Attending Provider Active S tart: March 29, 2025 End: March 29, 2025 Team Status: Inactive Member Role/Relationship Status Dates Dr. Mark Shabazz MD Primary Care Provider Acti ve Start: April 03, 2025 End: April 03, 2025 Dr. Mark Shabazz MD Referring Provider Active Start: April 03, 2025 End: April 03, 2025 Dr. Mirna Gunderson DC Attending Provider Active S tart: April 03, 2025 End: April 03, 2025 Team Status: Inactive Member Role/Relationship Status Dates Dr. Mark Shabazz MD Primary Care Provider Acti ve Start: April 16, 2025 End: April 16, 2025 Dr. Mark Shabazz MD Referring Provider Active Start: April 16, 2025 End: April 16, 2025 Dr. Mirna Gunderson DC Attending Provider Active S tart: April 16, 2025 End: April 16, 2025 Draw Frame Tender Relationship Specialty Start Date End Date Mark Shabazz [address] [facility] [place] [address] [place] [address] PCP - General 02/03/22 Team Status: Inactive Member Role/Relationship Status Dates Dr. Mark Shabazz MD Primary Care Provider Acti ve Start: April 24, 2025 End: April 24, 2025 Dr. Mark Shabazz MD Referring Provider Active Start: April 24, 2025 End: April 24, 2025 Dr. Mirna Gunderson DC Attending Provider Active S tart: April 24, 2025 End: April 24, 2025 Team Status: Inactive Member Role/Relationship Status [...] February 20, 2025 End: February 20, 2025 Team Status: Inactive Member Role/Relationship Status Dates Dr. Mark Shabazz MD Primary Care Provider Acti ve Start: February 21, 2025 End: February 21, 2025 Dr. Unruly Toscano DO Attending Provider Active Start: February 21, 2025 End: February 21, 2025 Dr. Unruly Toscano DO Referring Provider Active Start: February 21, 2025 End: February 21, 2025 Dr. Mirna Gunderson DC Other Provider Active Start : February 21, 2025 End: February 21, 2025 Team Status: Inactive Member Role/Relationship Status Dates Dr. Mark Shabazz MD Primary Care Provider Acti ve Start: February 22, 2025 End: February 22, 2025 Dr. Mark Shabazz MD Referring Provider Active Start: February 22, 2025 End: February 22, 2025 Dr. Mirna Gunderson DC Attending Provider Active S tart: February 22, 2025 End: February 22, 2025 Team Status: Inactive Member Role/Relationship Status Dates Dr. Mark Shabazz MD Primary Care Provider Acti ve Start: March 15, 2025 End: March 15, 2025 Dr. Mirna Gunderson DC Attending Provider Active S tart: March 15, 2025 End: March 15, 2025 Dr. Mirna Gunderson DC Referring Provider Active S tart: March 15, 2025 End: March 15, 2025 Team Status: Inactive Member Role/Relationship Status Dates Dr. Mark Shabazz MD Primary Care Provider Acti ve Start: March 22, 2025 End: March 22, 2025 Dr. Mirna Gunderson DC Attending Provider Active S tart: March 22, 2025 End: March 22, 2025 Dr. Mirna Gunderson DC Referring Provider Active S tart: March 22, 2025 End: March 22, 2025 Team Status: Inactive Member Role/Relationship Status Dates Dr. Mark Shabazz MD Primary Care Provider Acti ve Start: March 29, 2025 End: March 29, 2025 Dr. Mark Shabazz MD Referring Provider Active Start: March 29, 2025 End: March 29, 2025 Dr. Mirna Gunderson DC Attending Provider Active S tart: March 29, 2025 End: March 29, 2025 Team Status: Inactive Member Role/Relationship Status Dates Dr. Mark Shabazz MD Primary Care Provider Acti ve Start: April 03, 2025 End: April 03, 2025 Dr. Mark Shabazz MD Referring Provider Active Start: April 03, 2025 End: April 03, 2025 Dr. Mirna Gunderson DC Attending Provider Active S tart: April 03, 2025 End: April 03, 2025 Team Status: Inactive Member Role/Relationship Status Dates Dr. Mark Shabazz MD Primary Care Provider Acti ve Start: April 16, 2025 End: April 16, 2025 Dr. Mark Shabazz MD Referring Provider Active Start: April 16, 2025 End: April 16, 2025 Dr. Mirna Gunderson DC Attending Provider Active S tart: April 16, 2025 End: April 16, 2025 Team Status: Inactive Member Role/Relationship Status Dates Dr. Mark Shabazz MD Primary Care Provider Acti ve Start: April 24, 2025 End: April 24, 2025 Dr. Mark Shabazz MD Referring Provider Active Start: April 24, 2025 End: April 24, 2025 Dr. Mirna Gunderson DC Attending Provider Active S tart: April 24, 2025 End: April 24, 2025 Team Status: Inactive Member Role/Relationship Status Dates Dr. Mark Shabazz MD Primary Care Provider Acti ve Start: April 30, 2025 End: April 30, 2025 Dr. Mark Shabazz MD Referring Provider Active Start: April 30, 2025 End: April 30, 2025 Dr. Mirna Gunderson DC Attending Provider Active S tart: April 30, 2025 End: April 30, 2025 Reason for Visit (unrecogniz ed section and content) Reason Comments Procedure TPIBotox Specialty Diagnoses / Procedures Referred By Contac t Referred To Contact Diagnoses Intractable chronic migraine without aura and without status migrainosus Mariana Acuña, SURVEYING TECHNICIAN - [facility] [address] [place] [address] Phone: tel: fax: Referral ID Status Reason Start Date Expiration Date V isits Requested Visits Authorized [id number] Pending Review 03/06/2025 03/01/2026 1 1 Reason Comments Procedure Botox, TPI, Migraine Referral ID Status Reason Start Date Expiration Date V isits Requested Visits Authorized [id number] Pending Review 12/12/2024 12/07/2025 1 1 Reason Comments Procedure Botox- Migraines Specialty Diagnoses / Procedures Referred By Contac t Referred To Contact Diagnoses Chronic migraine without aura, intractable, without status migrainosus Mariana Acuña, SURVEYING TECHNICIAN - DIRECTOR OF NURSING [address] [place] [address] Referral ID Status Reason Start Date Expiration Date V isits Requested Visits Authorized [id number] Pending Review 11/04/2022 05/03/2023 1 1 Reason Comments Procedure Specialty Diagnoses / Procedures Referred By Contac t Referred To Contact Diagnoses Intractable chronic migraine without aura and without status migrainosus Mariana Acuña, SURVEYING TECHNICIAN - DIRECTOR OF NURSING [address] [place] [address] Referral ID Status Reason Start Date Expiration Date V isits Requested Visits Authorized [id number] Pending Review 02/16/2024 02/10/2025 1 1 Referral ID Status Reason Start Date Expiration Date V isits Requested Visits Authorized [id number] Pending Review 11/23/2023 11/17/2024 1 1 Reason Comments Procedure Botox- TPI - Migrain es Referral ID Status Reason Start Date Expiration Date V isits Requested Visits Authorized [id number] Pending Review 08/17/2023 08/11/2024 1 1 Reason Comments Procedure Botox Referral ID Status Reason Start Date Expiration Date V isits Requested Visits Authorized [id number] Pending Review 05/17/2023 11/13/2023 1 1 Reason Comments Med Refill Reason Comments Procedure Botox- Migraine Referral ID Status Reason Start Date Expiration Date V isits Requested Visits Authorized [id number] Pending Review 02/10/2023 08/09/2023 1 1 Reason [...] Expiration Date V isits Requested Visits Authorized [id number] Pending Review 06/05/2024 05/31/2025 1 1 Reason Onset Date Comments Medication Problem 06/29/2024 Referral ID Status Reason Start Date Expiration Date V isits Requested Visits Authorized [id number] Pending Review 09/19/2024 09/14/2025 1 1 Reason Onset Date Comments Procedure 08/17/2024 Botox Referral ID Status Reason Start Date Expiration Date Visits Re quested Visits Authorized [id number] Closed 09/19/2024 09/14/2025 1 1 Reason Comments Follow-up TPI - Intractable mi graine Reason Comments Procedure Reason Comments Procedure TPI - intractable ch ronic migraine INFORMATION SOURCE (unrecogn ized section and content) DATE CREATED AUTHOR 02/01/2023 [facility] DATE CREATED AUTHOR AUTHOR'S ORGANIZ ATION 02/01/2023 [facility] DATE CREATED AUTHOR AUTHOR'S ORGANIZ ATION 01/18/2024 [facility] ([place] DATE CREATED AUTHOR AUTHOR'S ORGANIZ ATION 04/17/2025 [facility] DATE CREATED AUTHOR AUTHOR'S ORGANIZ ATION 05/01/2025 [facility] FOR RECORDS PERTAINING TO PATIENTS WHO ARE [...] BE BASED ON THE PRIMARY CLINICAL RECORDS. [employer], [email or web address] provides no warranty or guarantee of the accuracy or completeness of information in this document.
== END | disposition home or self-care (01) ==
LOC: LAB 06:45
PROVIDERS: PCP Family Medicine; Referring Provider Family Medicine; Visit Provider Family Medicine
DX: E03.9 Hypothyroidism, unspecified (principal)
CPT/HCPCS: 36415; 84439; 84443

== ENCOUNTER 2025-07-12 21:58 | Emergency (ER) | payer OTHER, SELFPAY ==
[2025-07-12 21:59] VITALS: BP 116/77; PULSE 97; RESP 18; TEMP 36.2; O2SAT 99; BMI 20.2
--- NOTE | 2025-07-12 22:26 | CT_ITS ---
PROCEDURE: SOFT TISSUE NECK WITH CONTRAST 07/13/2025 REASON FOR EXAM: SORE THROAT TECHNIQUE: Procedure Code: CTNEW Modality: CT Procedure: SOFT TISSUE NECK WITH CONTRAST CONTRAST: isovue 370 VOLUME: 75 mL One or more dose reduction techniques were used (e.g., Automated exposure control, adjustment of the mA and/or kV according to patient size, use of iterative reconstruction technique). RADIATION DOSE SUMMARY: CTDI Vol 61.79 mGy DLP :1199.7 mGycm COMPARISON: none FINDINGS: Asymmetrically enlarged palatine tonsils, larger on the right side seen encroaching upon the oropharyngeal lumen showing non homogenous attenuation and enhancement with internal tiny marginally enhancing hypodense areas. Associated enlarged bilateral group II cervical lymph nodes, the largest seen reaching 12 mm along its short axial diameter. Other Subcentimetric bilateral deep cervical lymph nodes are seen involving groups I, II & III, possibly reactive. Normal CT appearance of the nasopharynx. Normal CT appearance of the larynx, namely the supra-glottic, glottic and infra- glottic spaces. The tongue, the epiglottis, uvula, the vocal cords, the upper trachea, the upper esophagus are unremarkable. Normal CT appearance of the sublingual, submandibular and parotid salivary glands. The thyroid gland shows no definite abnormality with mild asymmetry of its lobes. Normal appearance of the carotid sheath vessels. The visualized structures of the posterior fossa show no definite abnormality. Mild mucosal thickening of the right maxillary antrum. Clear rest of the examined paranasal sinuses. CT/Soft Tissue Neck WITH Contrast IMPRESSION: Findings are suggestive of tonsillitis with micro-abscesses formation and react licha cervical lymphadenopathy. No obvious marginally enhancing pockets/abscesses formation. Advise clinical correlation. Reading Location: [place] [id number]
--- NOTE | 2025-07-12 22:26 | EX.ED.VIS.UR ---
HPI <Dr. Otis Brady, DO - Last Filed: 07/13/25 00:33> HPI - URI History of Present Illness Chief Complaint: Sore Throat Informant: patient Onset/Context/Timing Onset: Days (3) Context: Gradual Onset Timing: Continuous Quality: Sharp Location: Throat, worse on the right Worsened by: Swallowing Relieved by: - (Nothing) Associated Symptoms Associated Symptoms: Positive for Myalgias and Nausea; Negative for Nasal Congestion, Headache, Sinus Pressure, Vomiting, Diarrhea, Shortness of Breath, Chest Pain, Nonproductive cough, Hemoptysis or Productive Cough Narrative Narrative: Patient presents with sore throat that has been getting worse over the past 3 days. Patient states she has been on Augmentin for a different infection. Patient states she went to urgent care today and was switched to cefdinir. Patient states she took 1 dose of that with no improvement. Patient states she had a rapid strep done at the urgent care today which was negative. Patient states she also had a monotest done today which was negative. Patient admits to some nausea but denies any vomiting. Patient admits to some general myalgias. Patient admits to subjective fevers but did not take her temperature at home. Patient denies any cough. Patient denies any chest pain. Patient describes her pain as sharp. Patient states it is worse on the right side of her throat. Patient states that she is able to swallow her secretions but states that it is very painful. ROS <Dr. Otis Brady, DO - Last Filed: 07/13/25 00:33> ROS ED Constitutional Constitutional ED: Reports fever(s) and subjective; Denies chills Eyes Eyes: Denies blurry vision or change in vision ENT ENT ED: Reports sore throat; Denies rhinorrhea Cardiovascular Cardiovascular: Denies chest pain or palpitations Respiratory/Chest Respiratory/Chest: Denies cough or dyspnea Gastrointestinal Gastrointestinal: Reports nausea; Denies vomiting Genitourinary Genitourinary ED: Denies dysuria or hematuria Musculoskeletal Musculoskeletal: Reports myalgias and neck pain; Denies back pain Integumentary Denies abscess or rash Neurologic Neurologic: Denies headache(s) or weakness Allergic/Immunologic Allergic/Immunologic ED: Denies mouth swelling or urticaria [facility] <Dr. Otis Brady, DO - Last Filed: 07/13/25 00:33> [facility] Medical History Depression Anxiety Injury of head and neck History of hiatal hernia History of IBS History of diverticulitis Nausea Non-smoker History of TIA (transient ischemic attack) History of cervical dysplasia Peritonitis Back pain Thyroid disease Chest pain Migraines Hay fever Fatigue Home Medications ?Medication ?Instructions ?Recorded ?Last Taken ?Type multivitamin 1 cap PO DAILY 04/22/18 Unknown History cholecalciferol (vitamin D3) 50 50 mcg PO QDAY 05/16/24 Unknown History mcg (2,000 unit) capsule levothyroxine 50 mcg tablet 50 mcg PO QDAY 05/16/24 Unknown History lisdexamfetamine 30 mg capsule 30 mg PO QAM 05/16/24 Unknown History (Vyvanse) tizanidine 4 mg capsule 4 mg PO QHS 05/16/24 Unknown History fsohhapfqa-auipvkgstrvow-[id number] 1 tab PO QHS Headache 06/12/24 Unknown History 50 mg-325 mg-40 mg tablet diphenhydramine HCl 25 mg capsule 25 mg PO QHS 12/25/24 Unknown History (Benadryl) magnesium 100 mg tablet 1,140 mg PO DAILY 01/10/25 Unknown History amoxicillin 875 mg-potassium 1 tab PO Q12H 10 days #20 tabs 07/12/25 Unknown Rx clavulanate 125 mg tablet estradiol 2 mg tablet 2 mg PO QDAY #90 tabs 07/12/25 Unknown Rx lidocaine HCl 2 % mucosal solution 1 applic mucous membrane TID PRN 07/12/25 Unknown Rx (Lidocaine Viscous) pain #100 mL amoxicillin 875 mg-potassium 1 tab PO BID #14 tabs 07/13/25 Unknown Rx clavulanate 125 mg tablet prednisone 20 mg tablet 40 mg (2 x 20 mg) PO DAILY #10 07/13/25 Unknown Rx TABLETS Allergy/AdvReac Type Severity Reaction Status Date / Time suture Allergy Mild pus Verified 07/12/25 22:01 tramadol (From Ultram) AdvReac Intermediate hallucinati Verified 07/12/25 22:01 ons shellfish derived AdvReac Mild Hives Verified 07/12/25 22:01 hydrocodone bitartrate (From AdvReac Vomiting Verified 07/12/25 22:01 Vicodin) Family History Daughter Asthma Father Hypertension Mother Hypertension Thyroid disorder Diabetes Grandmother Breast cancer Cancer omentum Osteoporosis Aunt Breast cancer Aunt Breast cancer Surgical History History of esophagogastroduodenoscopy (EGD) Hx of resection of rectum History of hysterectomy History of appendectomy History of colonoscopy (~2008) History of dilation and curettage (~2014) History of bilateral breast reduction surgery (~2017) History of loop electrical excision procedure (LEEP) (~2013) History of ovarian cystectomy H/O oophorectomy Social History household members: spouse current occupational status: employed current occupation: [employer]- [place] Smoking Status: Never smoker alcohol intake: never substance use type: does not use seatbelt use: always do you feel safe at home: Yes additional social history: - Rashard EXAM <Dr. Otis Brady DO - Last Filed: 07/13/25 00:33> Physical Exam Const Vital Signs: 07/12/25 21:59 07/12/25 23:58 07/13/25 01:00 Temperature 97.2 F L Temperature Source Temporal Pulse Rate 97 79 75 Respiratory Rate 18 16 Blood Pressure 116/77 115/62 124/78 H Blood Pressure Mean 90 79 93 Pulse Ox 99 99 97 Oxygen Delivery Method Room Air Room Air Room Air Positive well nourished and well developed Constitutional Narrative: BMI is 20.3. General Appearance ED: well developed and NAD HEENT Reports moist mucous membranes HEENT Narrative: Oropharynx is erythematous. There is an exudate on the right tonsillar fossa. There is a mild exudate on the left. There is mild edema on the right. There is no edema on the left. Airway is patent. There is no fluctuance. There is tender anterior cervical lymphadenopathy on the right. normocephalic Throat: posterior oropharynx abnormal Positive for erythema and exudates Eyes EOMs intact bilaterally Neck supple, no meningeal signs and no JVD General: lymphadenopathy anterior cervical tender Resp normal respiratory effort and clear to auscultation bilaterally Cardio Rate: regular rate Rhythm: regular rhythm Neuro oriented x3, CN's II-XII intact bilaterally and no sensory deficits noted Sensorium / Orientation: alert Motor Exam: strength 5/5 throughout Psych mental status grossly normal <Dr. Eden Lujan, DO - Last Filed: 07/13/25 01:18> Physical Exam Const Vital Signs: 07/12/25 21:59 07/12/25 23:58 07/13/25 01:00 Temperature 97.2 F L Temperature Source Temporal Pulse Rate 97 79 75 Respiratory Rate 18 16 Blood Pressure 116/77 115/62 124/78 H Blood Pressure Mean 90 79 93 Pulse Ox 99 99 97 Oxygen Delivery Method Room Air Room Air Room Air MDM <Dr. Otis Brady, DO - Last Filed: 07/13/25 00:33> [facility] MDM Narrative Medical decision making narrative: Differential diagnosis includes peritonsillar abscess, strep pharyngitis, viral pharyngitis, retropharyngeal abscess, and dehydration. CT scan of the soft tissue neck will be obtained to assess for peritonsillar abscess and retropharyngeal abscess. CBC will be obtained to assess for leukocytosis and anemia. Basic metabolic profile will be obtained to assess for electrolyte abnormality and renal function. Lab Data Attestation: I reviewed the patient's lab results. Lab results narrative: CBC was reviewed and was within normal limits. Basic metabolic profile was reviewed and was essentially within normal limits. Labs: Laboratory Results - last 24 hr 07/12/25 22:37 WBC 8.2 RBC 4.46 Hgb 12.7 Hct 38.8 MCV 87.0 MCH 28.5 MCHC 32.7 RDW Std Deviation 38.8 RDW Coeff of Martin 12.1 Plt Count 312 MPV 9.1 Immature Gran % (Auto) 0.200 Neut % (Auto) 72.3 H Lymph % (Auto) 17.9 L Crosby % (Auto) 9.4 Eos % (Auto) 0.1 Baso % (Auto) 0.1 Absolute Neuts (auto) 5.9 Absolute Lymphs (auto) 1.47 Nucleated RBC % 0 Sodium 139 Potassium 3.6 Chloride 103 Carbon Dioxide 26.3 Anion Gap 9 BUN 4 Creatinine 0.63 L Estim Creat Clear Calc 97.29 Est GFR (MDRD) Non-Af 113 BUN/Creatinine Ratio 6.7 L Glucose 108 H Calcium 9.4 Radiography Diagnostic Testing: Clinical Impression(s) from Imaging Studies Soft Tissue Neck CT 07/12/25 22:26 IMPRESSION: Findings are suggestive of tonsillitis with micro-abscesses formation and reactive cervical lymphadenopathy. No obvious marginally enhancing pockets/abscesses formation. Advise clinical correlation. Reading Location: [place] [id number] CT scan soft tissue neck was obtained. I independently reviewed the images and did not see any evidence of peritonsillar abscess or retropharyngeal abscess. Treatment and Re-Evaluation Narrative: Patient was given a dose of Decadron here. Patient was advised of her findings. Patient was instructed continue antibiotics as prescribed. Patient was given a prescription for prednisone. Care of the patient were turned over to the oncoming physician pending CT results. CT results are negative, patient can be discharged safely. Patient was instructed to follow-up with her primary care physician in 3 to 5 days. Patient was instructed to return if worse in any way. Patient understood and was agreeable with the plan. All questions were answered. <Dr. Eden Lujan, DO - Last Filed: 07/13/25 01:18> [facility] Lab Data Labs: Laboratory Results - last 24 hr 07/12/25 22:37 WBC 8.2 RBC 4.46 Hgb 12.7 Hct 38.8 MCV 87.0 MCH 28.5 MCHC 32.7 RDW Std Deviation 38.8 RDW Coeff of Martin 12.1 Plt Count 312 MPV 9.1 Immature Gran % (Auto) 0.200 Neut % (Auto) 72.3 H Lymph % (Auto) 17.9 L Crosby % (Auto) 9.4 Eos % (Auto) 0.1 Baso % (Auto) 0.1 Absolute Neuts (auto) 5.9 Absolute Lymphs (auto) 1.47 Nucleated RBC % 0 Sodium 139 Potassium 3.6 Chloride 103 Carbon Dioxide 26.3 Anion Gap 9 BUN 4 Creatinine 0.63 L Estim Creat Clear Calc 97.29 Est GFR (MDRD) Non-Af 113 BUN/Creatinine Ratio 6.7 L Glucose 108 H Calcium 9.4 Radiography Diagnostic Testing: Clinical Impression(s) from Imaging Studies Soft Tissue Neck CT 07/12/25 22:26 IMPRESSION: Findings are suggestive of tonsillitis with micro-abscesses formation and reactive cervical lymphadenopathy. No obvious marginally enhancing pockets/abscesses formation. Advise clinical correlation. Reading Location: [facility] Treatment and Re-Evaluation Narrative: Patient was given a dose of Decadron here. Patient was advised of her findings. Patient was instructed continue antibiotics as prescribed. Patient was given a prescription for prednisone. Care of the patient were turned over to the oncoming physician pending CT results. CT results are negative, patient can be discharged safely. Patient was instructed to follow-up with her primary care physician in 3 to 5 days. Patient was instructed to return if worse in any way. Patient understood and was agreeable with the plan. All questions were answered. Patient was endorsed to me pending their CT soft tissue neck which showed tonsillitis with microabscesses forming but no obvious marginally enhancing abscesses so we will go ahead out of an abundance of caution and go ahead and provide this patient with a course of antibiotics and then they can be discharged home Eden lujan DO Discharge Plan Triage Chief Complaint: Sore Throat ED Provider: Otis Brady Dx/Rx/DC Orders Clinical Impression: Pharyngitis, acute, Anterior cervical lymphadenopathy Instructions: ED ADENITIS Cervical Abx Tx, ED Pharyngitis, Viral Prescriptions: New prednisone 20 mg tablet 40 mg PO DAILY Qty: 10 0RF amoxicillin-pot clavulanate 875-125 mg tablet 1 tab PO BID Qty: 14 0RF No Action multivitamin capsule 1 cap PO DAILY tizanidine 4 mg capsule 4 mg PO QHS lisdexamfetamine [Vyvanse] 30 mg capsule 30 mg PO QAM levothyroxine 50 mcg tablet 50 mcg PO QDAY cholecalciferol (vitamin D3) 50 mcg (2,000 unit) capsule 50 mcg PO QDAY diphenhydramine HCl [Benadryl] 25 mg capsule 25 mg PO QHS estradiol 2 mg tablet 2 mg PO QDAY Qty: 90 3RF lidocaine HCl [Lidocaine Viscous] 2 % solution 1 applic mucous membrane TID PRN (Reason: pain) Qty: 100 0RF amoxicillin-pot clavulanate 875-125 mg tablet 1 tab PO Q12H 10 Days Qty: 20 0RF magnesium 100 mg tablet 1,140 mg PO DAILY [id number]-vnemsloobemuq-nrvp 1 TABLET tablet 1 tab PO QHS Primary Care Provider: Shawn Shabazz Referrals: Shawn Shabazz MD [Primary Care Provider, Family Practice] - 3-5 Days Print Language: Slovak Disposition Disposition: Home, Self Care
--- OUTSIDE RECORDS SUMMARY | 2025-07-12 22:28 | XMS RPT_ITS | CCD ---
Author Organization [facility] Care Team Providers Care Drama Teacher Name Role Phone HARIKA ASKEW, DR FLORES Primary Care Physician Mark Shabazz Primary Care Provider ADEBAYO HATHAWAY Admitting ADEBAYO Rios Attending ADEBAYO Rios Primary Care Miladys MURGUIA MD, TRUDI Attending Miladys SHABAZZ MD, DR FLORES Primary Care Bere MURGUIA MD, TRUDI Attending Miladys SHABAZZ MD, DR FLORES Primary Care Bere SHABAZZ MD, DR FLORES Primary Care Bere SHABAZZ MD, DR FLORES Attending JORDAN Ta MD Attending Miladys SHABAZZ MD, DR FLORES Primary Care Bere CLARK MD, ROXANA Attending Miladys SHABAZZ MD, DR FLORES Primary Care Bere CLARK MD, ROXANA Attending Miladys SHABAZZ MD, DR FLORES Primary Care TYRA Lackey MD Consulting Miladys SHABAZZ MD, DR FLORES Primary Care Bere CLARK MD, ROXANA Attending ZAK Dejesus MD Consulting Miladys NESBITT MD, ELIAN Weiner Attending Miladys SHABAZZ MD, DR FLORES Primary Care Bere SHABAZZ MD, DR FLORES Primary Care Bere KOWALSKI BUSINESS PROCESS COORDINATOR, JOVANNI Attending Miladys SHABAZZ MD, DR FLORES Primary Care Bere KOWALSKI NP, JOVANNI Attending ELIAN Hua MD Attending Miladys SHABAZZ MD, DR FLORES Primary Care Bere MURGUIA MD, TRUDI Attending Miladys SHABAZZ MD, DR FLORES Primary Care Mark Jean-Baptiste Primary Care Provider Harika ASKEW, Dr. Flores Primary Care Provider Javad BUSINESS PROCESS COORDINATOR-C, Jayla Attending Provider [phone] Javad BUSINESS PROCESS COORDINATOR-C, Jayla Referring Provider [phone] Harika ASKEW, Dr. Flores Referring Provider [phone] Everton LOZANO, Dr. Tolliver Attending Provider [place] BUSINESS PROCESS COORDINATOR-C, Mariana Attending Provider Diego BUSINESS PROCESS COORDINATOR-C, Mariana Referring Provider Barkman BUSINESS PROCESS COORDINATOR-C, Mrayjane Attending Provider Jenny BUSINESS PROCESS COORDINATOR-C, Maryjane Referring Provider Chris ASKEW, Dr. Tidwell [...] Provider Dossi DC, Dr. Bradley Other Provider Harika ASKEW, Dr. Flores Primary Care Provider Harika ASKEW, Dr. Flores Referring Provider [phone] Harika ASKEW, Dr. Flores Primary Care Provider Harika ASKEW, Dr. Flores Referring Provider [phone] Chris ASKEW, Dr. Tidwell Attending Provider [phone] Chris ASKEW, Dr. Tidwell Referring Provider [phone] Harika ASKEW, Dr. Christopher Primary Care Provider Harika ASKEW, Dr. Flores Referring Provider [phone] Chris ASKEW, Dr. Tidwell Attending Provider Harika ASKEW, Dr. Flores Primary Care Physicia n Harika ASKEW, Dr. Flores Referring Provider Doskatie MULLER, Dr. Bradley Attending Physician [phone] Everton LOZANO, Dr. Tolliver Attending Physician [phone] Everton LOZANO, Dr. Tolliver Referring Provider Dossi YOHANA, Dr. Bradley Nurse Practitioner [phone] Doskatie MULLER, Dr. Bradley Referring Provider [phone] Harika ASKEW, Dr. Flores Attending Physician Assessment, Health Risk Attending Physician Unav ailable Assessment, Health Risk Referring Provider Unava ilable DOMENICO, MARIANA Attending Unavailable RANNEY, CHRISTOPHER Primary [...] MARIANA Referring Unavailable DOMENICO, MARIANA Attending Unavailable RANNEY, CHRISTOPHER Primary Care Unavailable DOMENICO, MARIANA Attending Unavailable RANNEY, CHRISTOPHER Primary Care Unavailable Harika ASKEW, Dr. Flores Primary Care Physicia n Harika ASKEW, Dr. Flores Referring Provider [phone] Dossi DC, Dr. Bradley Attending Physician [phone] Ranney, Christopher Referring Unavailable Ranney, Christopher Primary Care Unavailable Ranney, Christopher Attending Unavailable Ranney, Christopher Primary Care Unavailable Maryjane Alvarado Attending Unavailable Maryjane Alvarado Referring Unavailable Ranney, Christopher Primary Care Unavailable Friend, Unruly Attending Unavailable Friend, Unruly Referring Unavailable [place], Christopher Referring Unavailable [facility], [place] Primary Care Unavailable Dossi, Mirna Attending Unavailable [facility] Primary Care Unavailable Friend, Unrluy Referring Unavailable Friend, Unruly Attending Unavailable Farnsworth, Jayla Attending Unavailable Farnsworth, Jayla Referring Unavailable [facility] Primary Care Unavailable [facility] Primary Care Unavailable Assessment, Health Risk Attending Unavaila ble Assessment, Health Risk Referring Unavaila ble [place], [place] Primary Care Unavailable Dossi, Mirna Consulting Unavailable Friend, Unruly Attending Unavailable Friend, Unruly Referring Unavailable Robotham, Diann Attending Unavailable Robotham, Diann Referring Unavailable [facility] Primary Care Un[facility] [place] Referring Unavailable [facility] [place] Primary Care Unavailable Friend, Unruly Attending Unavailable Robotham, Diann Attending Unavailable [place] Referring Unavailable [facility] [place] Primary Care Unavailable [facility] Primary [facility] Unavailable Dossi, Mirna Attending Unavailable Dossi, Mirna Referring Unavailable [facility] Primary Care Unavailable Dossi, Mirna Attending Unavailable Dossi, Mirna Referring Unavailable Dossi, Mirna Attending Unavailable [facility] Primary Care Unavailable Dossi, Mirna Referring Unavailable Dossi, Mirna Attending Unavailable [facility] Primary Care Unavailable Dossi, Mirna Referring Unavailable [place] Referring Unavailable [place], [place] [facility] Care Unavailable Dossi, Mirna Attending Unavailable [place] Referring Unavailable Diego BUSINESS PROCESS COORDINATOR, Mariana Attending Unavailable [facility] Primary Care Unavailable [place] Ref[facility] Primary Care Unavailable Dossi, Mirna Attending Unavailable Robotham, Diann Referring Unavailable Robotham, Diann Consulting Unavailable Robotham, Diann Attending Unavailable [facility] [place] Primary Care Unavailable Dossi, Mirna Attending Unavailable [place] Referring Unavailable [place], [place] Primary Care Unavailable [place] Referring [facility] Primary Care Unavailable Dossi, Mirna Attending Unavailable Robotham, Diann Attending Unavailable Robotham, Diann Referring Unavailable [place], [place] Primary Care Unavailable [place], [place] Primary Care Unavailable Dossi, Mirna Referring Unavailable Dossi, Mirna Attending Unavailable [place], Christopher Referring Unavailable [facility] Primary Care Unavailable Dossi, Mirna Attending Unavailable [facility] Primary Care Unavailable [place] BUSINESS PROCESS COORDINATOR, Mariana Attending Unavailable Diego BUSINESS PROCESS COORDINATOR, Mariana Referring Unavailable RobotDiann narvaez Attending Unavailable [place], Christopher Referring Unavailable [place], [place] Primary Care Unavailable [place], Christopher Referring Unavailable [place], [place] Primary Care Unavailable [place], Unruly Attending Unavailable [place] Referring Unavailable [place], [place] Primary Care Unavailable Dossi, Mirna Attending Unavailable [place], [place] Primary Care Unavailable Dossi, Mirna Attending Unavailable Dossi, Mirna Referring Unavailable [place], [place] Primary Care Unavailable Dossi, Mirna Attending Unavailable Dossi, Mirna Referring Unavailable [facility] Primary Care Unavailable Dossi, Mirna Attending Unavailable Dossi, Mirna Referring Unavailable [facility] Primary Care Unavailable Dossi, Mirna Attending Unavailable Dossi, Mirna Referring Unavailable Allergies Allergy Classification Reported Allergen(s) Allergy Type Date of Onset Reaction(s) Facility (20 sources) HYDROcodone; Translations: [hydrocodone bitartrate] Drug Allergy 06-27-20 Vomiting [facility] (20 sources) traMADol; Translations: [tramadol] Drug Allergy 06-27-20 Hallucinations [facility] (20 sources) suture; Translations: [suture] Allergy to substance 06-27-20 pus [facility] Comment on above: dissolving suture (10 sources) Acetaminophen / HYDROcodone; Translations: [acetaminophen-h ydrocodone] Drug Allergy [facility] (20 sources) Acetaminophen / HYDROcodone Drug Allergy 07-01-20 Nausea And Vomiting [facility] (20 sources) Amoxicillin-Pot Clavulanate Drug Intolerance 07-29-20 [facility] (7 sources) Amoxicillin; Translations: [amoxicillin] Drug Allergy rash [facility] (2 sources) Shellfish; Translations: [shellfish] Food allergy Itching [facility] (18 sources) Shellfish-Derive d Products Propensity to adverse reactions 05-12-20 [facility] (20 sources) Shellfish; Translations: [shellfish derived] Propensity to adverse reactions 06-13-20 Hives [facility] (1 source) traMADol Drug Allergy 06-27-20 [facility] Repository Medications Current Medications Medication Drug Class(es) Dates Sig (Normalized) Sig (Original) acetaminophen 325 mg / butalbital 50 mg / caffeine 40 mg oral tablet (20 sources) Barbiturate, Central Nervous System Stimulant, Methylxanthine Start: 06-12-2024 Butalbital-Aceta minophen-Caff 1 TABLET tablet Active 1 {tbl} PO AT BEDTIME June 12, 2024 12:00am Headache Complies with drug therapy Start: 02-04-2024 End: 05-12-2024 take 1 tablet by mouth every six hours as needed for headache and headache, then take 1 tablet by mouth every six hours as needed for headache and headache xzpkbktupr-acbteezrcutbi-ybfaheoi 50-325 -40 MG tablet Indications: Chronic migraine [...] by mouth every six hours for headache yhakpcsyqh-fzhmyrkqiulkc-xwgresjm 50-325 -40 MG tablet Indications: Chronic migraine without aura, intractable, without status migrainosus TAKE 1 TABLET BY MOUTH EVERY 6 HOURS IF NEEDED FOR HEADACHE. 90 day supply 130 tablet 1 01/04/2024 Active Start: 04-27-2018 take 1 tablet by luz elena th every four hours as needed Wykzolbbxp-Pffszfpmdicre-Soih Active 1 T ABLET PO EVERY 4 HOURS NEEDED April 27, 2018 7:31pm Start: 04-27-2018 End: 01-23-2025 Beulkkmemz-Rnnvqjellqlib-Bjo f 1 TABLET tablet Discontinued 1 {tbl} PO EVERY 4 HOURS NEEDED as needed for Headache 20 0 April 27, 2018 12:00am June 12, 2024 1:57pm Start: 02-11-2018 End: 03-06-2019 Jhnmfcrdvh-Xlvcenabenown-Gca f Discontinued 1 TABLET PO NEEDED April 22, 2018 12:57pm March 06, 2019 8:43am Start: 02-11-2018 End: 03-06-2019 Kkjyqyfsfa-Nhhagpjjsuksh-Wsw f 50-325-40 mg tablet Discontinued 1 {tbl} [...] ug PO daily May 16, 2024 12:00am Complies with drug therapy Start: 05-22-2021 Vitamin D (3) 45 units oral capsule qDay, 0 Refill(s) Start Date: 05/22/21 Status: Ordered diphenhydrAMINE hydrochloride 25 mg oral capsule (20 sources) Histamine-1 Receptor Antagonist Start: 12-25-2024 take 1 capsule by mouth at bedtime Diphenhydramine Hcl (Benadryl) 25 mg capsule Active 25 mg PO AT BEDTIME December 25, 2024 12:00am Complies with drug therapy Start: 08-02-2023 diphenhydrAMIN E (Benadryl Allergy) 25 [...] qDay, # 30 tab(s), 5 Refill(s), Pharmacy: [facility], 162, cm, 07/09/22 8:28:00 EST, Height, kg, 07/09/22 8:28:00 EST, Dosing Weight Start Date: 02/01/23 Stop Date: 07/31/23 Status: Ordered Start: 07-09-2022 take 1 tablet by luz elena th once daily Levothyroxine 50 mcg tablet Active 50 ug PO daily May 16, 2024 12:00am Complies with drug therapy Start: 07-09-2022 End: 01-05-2023 levothyroxine 50 mcg (0.05 m g) oral tablet Dose : 50 mcg = 1 tab(s), Oral, qDay, # 30 tab(s), 5 Refill(s), [facility]: [id number], 162, cm, 07/09/22 8:28:00 EST, Height, kg, 07/09/22 8:28:00 EST, Dosing Weight Start Date: 07/09/22 Stop Date: 01/05/23 Status: Ordered lisdexamfetamine dimesylate 40 mg oral capsule (20 sources) Central Nervous System Stimulant Start: 05-25-2025 take 1 capsule by mouth once daily in the morning lisdexamfetamine (Vyvanse) 40 MG capsule Take 40 mg by mouth every morning. 05/25/2025 Active Start: 10-05-2023 End: 05-28-2025 take 1 capsule by mouth once daily in the morning Lisdexamfetamine (Vyvanse) 30 mg capsule Active 30 mg PO EVERY MORNING May 16, 2024 12:00am Complies with drug therapy Start: 07-09-2022 End: 02-10-2023 lisdexamfetamine (Vyvanse) 2 0 MG capsule 0 Refill(s), 63.5 0 07/09/2022 Active Magnesium (19 sources) Start: 01-10-2025 Magnesium 100 mg tablet Active 1140 mg PO DAILY January 10, 2025 12:00am Complies with drug therapy Start: 01-10-2025 Magnesium 100 mg tablet Active [...] Multivitamin capsule (20 sources) Start: 04-22-2018 Multivitamin c apsule Active 1 NMA PO DAILY April 22, 2018 12:00am Complies with drug therapy Start: 04-22-2018 Multivitamin c apsule Active 1 NMA PO DAILY April 22, [...] 2025 Postoperative pain Other acute postprocedural pain Complies with drug therapy Start: 10-13-2023 End: 10-20-2023 oxyCODONE 5 mg oral tablet ( IMMEDIATE release ) Dose : 5 mg = 1 tab(s), Oral, q6h, PRN for pain, X 7 day(s), # 28 tab(s), 0 Refill(s), 10/20/23 1:14:00 PM EST, [facility]acy: [id number], Post-op pain, 162.6, cm, 10/13/23 9:28:00 EST, Height, 49.5, kg, 10/13/23 9:28:00 EST, Dosing Weight Start Date: 10/13/23 Stop Date: 10/20/23 Status: Ordered Start: 03-27-2019 End: 04-05-2019 take 1 tablet by mouth every six hours as needed for pain Oxycodone 5 MG tablet Discontinued 5 mg PO EVERY 6 HOURS NEEDED as needed for Severe Pain (6-10/) 20 7 0 March 27, 2019 April [...] PO AT BEDTIME May 16, 2024 12:00am Complies with drug therapy Start: 07-09-2022 End: 11-15-2023 take 1 tablet [...] tab(s), 12 Refill(s), 08/03/23 8:54:00 EST, Pharmacy: [facility] #[id number], 162, cm, 07/09/22 8:28:00 EST, Height, 54.5, [...] 0.5 MG tablet 04/09/2014 Active bacillus coagulans [id number] unt / inulin 250 mg oral capsule (20 sources) End: 09-19-2024 Bacillus Coagulans-Inulin (Probiotic) 1-250 BILLION-MG capsule Take by mouth. 09/19/2024 Discontinued (Med list cleanup) onabotulinumtoxina 200 unt injection (20 sources) Acetylcholine Release Inhibitor Start: 05-28-2025 End: 05-28-2025 onabotulinumtoxinA (Botox) injection 200 Units Start: 05-28-2025 End: 05-28-2025 inject 200 [IU] by intramuscular injection once 200 Units, IntraMUSCular, Once, On Wed05/28/25 at 1030, For 1 dose Start: 03-06-2025 End: 03-06-2025 onabotulinumtoxinA (Botox) i njection 200 Units Start: 03-06-2025 End: 03-06-2025 inject [...] (20 sources) Antiarrhythmic, Amide Local Anesthetic Start: 05-28-2025 End: 05-28-2025 lidocaine (Xylocaine) 1 % injection 4 mL Start: 05-28-2025 End: 05-28-2025 4 mL, IntraDERmal, Once, On 05/28/25 at 1145, For 1 dose Start: 05-28-2025 End: 05-28-2025 lidocaine (Xylocaine) 1 % in jection 4 mL Start: 05-28-2025 End: 05-28-2025 4 mL, IntraDERmal, Once, On 05/28/25 at 1145, For 1 dose Start: 05-28-2025 End: 05-28-2025 5 mL, IntraDERmal, Once, On 05/28/25 at 1030, For 1 dose Start: 04-16-2025 End: 04-16-2025 lidocaine (Xylocaine) 1 % in jection 9 mL Start: 04-16-2025 End: 04-16-2025 9 mL, Injection, Once, On 04/16/25 at 1100, For 1 dose Start: 03-06-2025 End: 03-06-2025 lidocaine (Xylocaine) 1 % in jection 9 mL Start: 03-06-2025 End: 03-06-2025 9 mL, Injection, Once, On 03/06/25 at 1015, For 1 dose Start: 12-12-2024 End: 12-12-2024 9 mL, IntraDERmal, Once, On Wed12/12/24 at 1015, For 1 dose Start: 10-31-2024 End: 10-31-2024 9 mL, IntraDERmal, Once, On Wed10/31/24 at 0945, For 1 dose Start: 09-25-2024 End: 05-28-2025 lidocaine (Xylocaine) 1 % in jection 5 mL Start: 06-29-2024 End: 06-29-2024 lidocaine (Xylocaine) [...] mg/ml injectable suspension (20 sources) Corticosteroid Start: 05-28-2025 End: 05-28-2025 triamcinolone acetonide (Kenalog) injection 10 mg Start: 05-28-2025 End: 05-28-2025 inject 10 mg by intramuscular injection once 10 mg, IntraMUSCular, Once, On Wed05/28/25 at 1030, For 1 dose Start: 04-16-2025 End: 04-16-2025 triamcinolone acetonide (Leonid alog) injection 10 mg Start: 04-16-2025 End: 04-16-2025 [...] lower quadrant pain] Onset: 08-17-2023 08-02-2023 Episodic Headache; including migraine (20 sources) Migraine; [...] and somatic dysfunction of thoracic region] Onset: 06-27-2025 Episodic Other bone disease and musculoskeletal deformities (1 source) Segmental and somatic dysfunction of lumbar region; Translations: [Segmental and somatic dysfunction of lumbar region] Onset: 06-27-2025 Episodic Other bone disease and musculoskeletal deformities (1 source) Segmental and somatic dysfunction of cervical region; Translations: [Segmental and somatic dysfunction of cervical region] Onset: 06-27-2025 Episodic Other bone disease and musculoskeletal deformities (1 source) Segmental and somatic dysfunction of pelvic region; Translations: [Segmental and somatic dysfunction of pelvic region] Onset: 06-27-2025 Episodic Other connective tissue disease (20 sources) Myofascial pain; Translations: [Myalgia, other site] Onset: 01-04-2024 01-04-2024 Episodic Other connective tissue disease (2 sources) Myalgia, other site; Translations: [Myalgia, other site] Onset: 01-04-2024 Episodic Other disorders of stomach and duodenum (20 sources) Gastroparesis syndrome; Translations: [Gastroparesis] 05-16-2024 Episodic Other female genital disorders (20 sources) Lesion of endometrium; Translations: [Other specified conditions associated with female genital organs and menstrual cycle] 08-01-2015 Episodic Other female genital disorders (20 sources) Dysplasia of cervix; Translations: [Dysplasia of cervix uteri, unspecified] 08-03-2014 Episodic Other gastrointestinal disorders (20 sources) Irritable bowel syndrome with diarrhea; Translations: [Irritable bowel syndrome with diarrhea] 05-16-2024 Chronic Other gastrointestinal disorders (1 source) Irritable bowel syndrome with diarrhea; Translations: [Irritable bowel syndrome with diarrhea] Onset: 02-26-2025 Chronic Other nervous system disorders (1 source) [...] cancer] 11-22-2024 Episodic Comment on above: 28.2% Tyrer-Cuzick l ifetime breast cancer risk Residual codes; unclassified (3 sources) At high risk for breast cancer; Translations: [Other specified personal risk factors, not elsewhere classified] 11-22-2024 Episodic Comment on above: 28.2% Tyrer-Cuzick l ifetime breast cancer risk Thyroid disorders (20 sources) Hypothyroidism; Translations: [Hypothyroidism, unspecified] Onset: 05-18-2025 07-09-2022 Chronic Thyroid disorders (20 sources) Disorder of thyroid gland; Translations: [Disorder of thyroid, unspecified] 06-12-2024 Episodic Comment on above: ON MED Unclassified (10 sources) Patient encounter status 07-09-2022 Unclassified (1 source) Low back pain, unspecified; Translations: [Low back pain, unspecified] Onset: 05-28-2025 Past or Other Problems Problem Classification Problem Date Documented Da te Episodic/Chronic Biliary tract disease (1 source) Calculus of gallbladder without cholecystitis without obstruction; Translations: [Calculus of gallbladder without cholecystitis without obstruction] Onset: 02-11-2025 Episodic Gastrointestinal hemorrhage (2 sources) Hemorrhage of anus and rectum; Translations: [Hemorrhage of anus and rectum] Onset: 08-17-2023 Episodic Malaise and fatigue (20 sources) Fatigue; Translations: [Other fatigue] Onset: 11-10-2024 06-06-2020 Episodic Noninfectious gastroenteritis (20 sources) Inflammatory bowel disease; Translations: [Noninfective gastroenteritis and colitis, unspecified] Onset: 01-11-2025 05-16-2024 Episodic Nonmalignant breast conditions (20 sources) Breast lump; Translations: [Unspecified lump in the left breast, unspecified quadrant] Onset: 11-01-2024 11-01-2024 Episodic Comment on above: imaging Other disorders of stomach and duodenum (1 source) Gastroparesis; Translations: [Gastroparesis] Onset: 02-20-2025 Episodic Other screening for suspected conditions (not [...] 03-15-2025 06-12-2024 Episodic Comment on above: CHRONIC Results Test Name Value Interpretation Reference Range Facility Chiropractic Reporton 2024 Chiropractic Report [facility] [address] [place] [address] OFFICE VISIT Date of Service: 06/27/25 MR#: [id number] Acct: [id number] Name: RAEGANGIANFRANCO Rep #: [id number] : 1980 Provider: YOHANA Saucedo Age/Sex: 44/F Location: [facility] Status: Signed Intake Vital Signs 01/19/25 10:57 04/24/25 10:32 Height 5 ft 4 in 5 ft 4 in Intake Visit Reasons: ACUPUNCTURE/ADJUSTMENT Chief Complaint: 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 Accompanied by: Daughter Is patient in pain?: Yes Pain scale (1-10): 4 Allergies suture Allergy (Mild, Verified 06/27/25 09:23) pus tramadol (From Ultram) Adverse Reaction (Intermediate, Verified 06/27/25 09:23) hallucinations shellfish derived Adverse Reaction (Mild, Verified 06/27/25 09:23) Hives hydrocodone bitartrate (From Vicodin) Adverse Reaction (Verified 06/27/25 09:23) Vomiting PFSH Medical History Depression Anxiety Injury [...] spouse current occupational status: employed current occupation: [employer] [place] Smoking Status: Never smoker alcohol intake: never substance use type: does not use seatbelt use: always do you feel safe at home: Yes additional social history: - Rashard CABRERA ACUPUNCTURE/ADJUSTMENT Chief Complaint: upper and low back pain Visit Number: 15 Details: Michelle is a 44 y/o female here to follow up with upper and low back pain. Sharp, shooting low back pain with certain movements or walking starting sacrum-area radiating bilaterally. Persistent neck tension. Persistent headache. Occasional migraines w nausea. Trigger point injections are helpful. 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 She states she intermittently will get twinges of pain in her low back when she does certain things and she quickly stops to rest. She has trouble transitioning from sitting to standing. She is currently fostering a baby girl and this could be attributing to her low back flare up. She denies new injury, numbness, tingling or [...] normal cervical lordosis, Yes cervical muscular tenderness left greater than right diffuse , Yes cervical spasm right greater [...] with the patient and consent was obtained. Acupunctu (more content not included)... Normal [facility] Reporton 2024 Chiropractic Report [facility] [address] [place], [place] [id number] OFFICE VISIT Date of Service: 05/30/25 MR#: [id number] Acct: [id number] Name: MICHELLE CARLIN ANN Rep #: [id number] : 1980 Provider: YOHANA Saucedo Age/Sex: 44/F Location: [facility] Status: Signed Intake Vital Signs 01/19/25 10:57 04/24/25 10:32 Height 5 ft 4 in 5 ft 4 in Intake Visit Reasons: ACUPUNCTURE/ADJUSTMENT Chief Complaint: neck and low back pain Is patient in pain?: Yes (neck, upper and low back ) Pain scale (1-10): 5 Allergies suture Allergy (Mild, Verified 05/30/25 10:57) pus tramadol (From Ultram) Adverse Reaction (Intermediate, Verified 05/30/25 10:57) hallucinations shellfish derived Adverse Reaction (Mild, Verified 05/30/25 10:57) Hives hydrocodone bitartrate (From Vicodin) Adverse Reaction (Verified 05/30/25 10:57) Vomiting Medications ???Medication ???Instructions ???Recorded ???Confirmed ???Type multivitamin 1 cap PO DAILY 04/22/18 05/30/25 H istory cholecalciferol (vitamin D3) 50 50 mcg PO QDAY 05/16/24 05/30/25 H istory mcg (2,000 unit) capsule levothyroxine 50 mcg tablet 50 mcg PO QDAY 05/16/24 05/30/25 H istory lisdexamfetamine 30 mg capsule 30 mg PO QAM 05/16/24 05/30/25 His tory (Vyvanse) tizanidine 4 mg capsule 4 mg PO QHS 05/16/24 05/30/25 Hist ory nowedtmqrr-hbutatrfqxple-sq ffeine 1 tab PO QHS Headache 06/12/24 History 50 mg-325 mg-40 mg tablet diphenhydramine HCl 25 mg capsule 25 mg PO QHS 12/25/24 05/30/25 Hi story (Benadryl) magnesium 100 mg tablet 1,140 mg PO DAILY 01/10/25 5 History oxycodone 5 mg capsule 5 mg PO Q6H PRN pain 3 days #5 cap s 01/19/25 05/30/25 Rx estradiol 2 mg tablet 2 mg [...] home: Yes additional social history: - Rashard RICK ACUPUNCTURE/ADJUSTMENT Chief Complaint: upper and low back pain Visit Number: 14 Details: Michelle is a 44 y/o female here to follow up with upper and low back pain. Michelle advises she has not been doing well the past week and a half. She reports an intense ocular migraine last night. She states she took her meds and got a few hours of sleep but continues to have a dull CANTU and states her neck is tight and crunchy. She rates her neck pain 2/10. She states she had her trigger point injections and her neck, bilateral traps and forehead are winder tender to touch. She rates her shoulder/ trap pain 5/10. She also states her low back was achy last week and felt like something was brewing and weds she bent over to get a small bowl of chili out of her car and tweeked her right low back. She states the pain was intense and spent 2 days in bed with her TENS unit and had to take some steroids for the inflammation. The steroids have been helpful and rates her low back pain 1/10 today. 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 She states she intermittently will get twinges of pain in her low back when she does certain things and she quickly stops to rest. She denies new injury, numbness, tingling or radiculopathy to her BLE or IVETT. She also gets regular massages and uses a TENS unit at home to treat her pain. She reports chiropractic adjustments and acupuncture are helpful in relieving her pain and discomfort but it gradually returns. Location: neck/low back Duration: frequent Aggravating or associated factors: bending, lifting, botox, stress Relieving facto (more content not included)... Normal [facility] Progress Noteon 05-28-2025 Progress Note 05/28/2025 Mariana BOLTON Trigger point injections Lidocaine [facility] 5661-5658-73 Lot [id number] 9 ml Kenalog [facility] 3249-3529-48 Lot [id number] 1 ml Normal [facility] Progress Note Administrations This Visit onabotulinumtoxin A (BOTOX) injection 200 Units Admin Date 05/28/25 Action Given Dose 200 Units Route IntraMUSCular Site Other Administered By CLEVELAND Lara CNP Ordering Provider: CLEVELAND Lara CNP [facility]: 5915-6626-28 Lot#: [id number] Can Washer: Allergan Patient Supplied? No Normal [facility] Chiropractic Reporton 2024 Chiropractic Report [facility] [address] [place] [address] OFFICE VISIT Date of Service: 05/14/25 MR#: [id number] Acct: [id number] Name: RAEGANGIANFRANCO Rep #: [id number] : 1980 Provider: YOHANA Saucedo Age/Sex: 44/F Location: [facility] Status: Signed Intake Vital Signs 01/19/25 10:57 04/24/25 10:32 Height 5 ft 4 in 5 ft 4 in Intake Visit Reasons: ACUPUNCTURE/ADJUSTMENT Chief Complaint: neck and low back pain Allergies suture Allergy (Mild, Verified 05/14/25 09:14) pus tramadol (From Ultram) Adverse Reaction (Intermediate, Verified 05/14/25 09:14) hallucinations shellfish derived Adverse Reaction (Mild, Verified 05/14/25 09:14) Hives hydrocodone bitartrate (From Vicodin) Adverse Reaction (Verified 05/14/25 09:14) Vomiting Medications ???Medication ???Instructions ???Recorded ???Confirmed ???Type multivitamin 1 cap PO DAILY 04/22/18 05/14/25 H istory cholecalciferol (vitamin D3) 50 50 mcg PO QDAY 05/16/24 05/14/25 H istory mcg (2,000 unit) capsule levothyroxine 50 mcg tablet 50 mcg PO QDAY 05/16/24 05/14/25 H istory lisdexamfetamine 30 mg capsule 30 mg PO QAM 05/16/24 05/14/25 His tory (Vyvanse) tizanidine 4 mg capsule 4 mg PO QHS 05/16/24 05/14/25 Hist ory cblcgkmoon-bvqahxbnfpgcg-dt ffeine 1 tab PO QHS Headache 06/12/24 History 50 mg-325 mg-40 mg tablet diphenhydramine HCl 25 mg capsule 25 mg PO QHS 12/25/24 05/14/25 Hi story (Benadryl) magnesium 100 mg tablet 1,140 mg PO DAILY 01/10/25 5 History oxycodone 5 mg capsule 5 mg PO Q6H PRN pain 3 days #5 cap s 01/19/25 05/14/25 Rx estradiol 2 mg tablet 2 mg [...] upper and low back pain Visit Number: 13 Details: Michelle is a 44 y/o female here to follow up with upper and low back pain. Michelle advises she has been feeling pretty good overall. She woke with a stiff neck last Wednesday after staying in a hotel and was dealing with left neck pain and stiffness that has since worked itself out. She c/o mild neck and upper back stiffness today. She states her CANTU's had been bad so she did take a steroid dose pack which has been helpful. 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 She states she intermittently will get twinges of pain in her low back when she does certain things and she quickly stops so her low back is mildly tight equal across her low back/SI area. [...] normal cervical lordosis, Yes cervical muscular tenderness left greater than right diffuse , Yes cervical spasm right greater than left diffuse trapezius and paracervical muscles and Yes misalignment misalignment: C1, C2, C6 and C7 Thoracic/Lumber: No thoracic and lumbar spine normal to inspec (more content not included)... Normal [facility] Absolute lymphocyte countOrd ered By: HEALTH ASSESSMENT on 05-04-2025 Lymphocytes Auto (Unsp spec) [#/Vol] 3.75 10*3/uL 0.83-4.51 [facility] Absolute neutrophil countOrd ered By: HEALTH ASSESSMENT on 05-04-2025 Neutrophils (Bld) [#/Vol] 3.4 10*3/uL 2.0-7.7 [facility] Absolute nucleated red blood cell countOrdered By: HEALTH ASSESSMENT on 05-04-2025 Nucleated RBC (Bld) [#/Vol] 0.00 10*3/uL 0-5 [facility] Anion gap in Serum or Plasma Ordered By: HEALTH ASSESSMENT on 05-04-2025 Anion gap [Moles/Vol] 12 mmol/L 5-15 [facility] BUN/creatinine ratioOrdered By: HEALTH ASSESSMENT on 05-04-2025 Urea nitrogen/Creatinine [Mass ratio] 12.8 mg/mg 10-20 [facility] Bilirubin directOrdered By: HEALTH ASSESSMENT on 05-04-2025 Bilirubin.direct [Mass/Vol] 0.24 mg/dL 0.00-0.30 [facility] Bilirubin, totalOrdered By: HEALTH ASSESSMENT on 05-04-2025 Bilirubin [Mass/Vol] 0.23 mg/dL 0.00-1.30 [facility] CBC, Employeeon 05-04-2025 Absolute Lymph 3.75 X10 3/uL Normal 0.83-4.51 [facility] Comment on above: Performed By: #### L 500.2900, L100.0200, L400.0100 #### [facility] [address] [place], [address] Absolute Neut 3.4 X10 3/uL Normal 2.0-7.7 [facility] Comment on above: Performed By: #### L 500.2900, L100.0200, L400.0100 #### [facility] [address] [place], [address] Basophils/100 WBC (Bld) 0.3 % Normal 0-1 [facility] Comment on above: Performed By: #### L 500.2900, L100.0200, L400.0100 #### [facility] [address] [place], [address] Eosinophils/100 WBC (Bld) 0.6 % Normal 0-5 [facility] Comment on above: Performed By: #### L 500.2900, L100.0200, L400.0100 #### [facility] [address] [place], [address] Erythrocyte distribution width (RBC) [Ratio] 11.9 % Normal 11.6-14.6 [facility] Comment on above: Performed By: #### L 500.2900, L100.0200, L400.0100 #### [facility] [address] [place], [address] Hematocrit (Bld) [Volume fraction] 39.6 % Normal 37-47 [facility] Comment on above: Performed By: #### L 500.2900, L100.0200, L400.0100 #### [facility] [address] [place], [address] Hemoglobin (Bld) [Mass/Vol] 13.1 g/dL Normal 12.0-15.0 [facility] Comment on above: Performed By: #### L 500.2900, L100.0200, L400.0100 #### [facility] [address] [place], [address] Lymphocytes/100 WBC (Bld) 48.1 % High 19-41 [facility] Comment on above: Performed By: #### L 500.2900, L100.0200, L400.0100 #### [facility] [address] [place], [address] MCH (RBC) [Entitic mass] 28.5 pg Normal 27.0-32.0 [facility] Comment on above: Performed By: #### L 500.2900, L100.0200, L400.0100 #### [facility] [address] [place], [address] MCHC (RBC) [Mass/Vol] 33.1 g/dL Normal 32-36 [facility] Comment on above: Performed By: #### L 500.2900, L100.0200, L400.0100 #### [facility] [address] [place], [address] MCV (RBC) [Entitic vol] 86.3 fL Normal 81-99 [facility] Comment on above: Performed By: #### L 500.2900, L100.0200, L400.0100 #### [facility] [address] [place], [address] Monocytes/100 WBC (Bld) 7.8 % Normal 0-10 [facility] Comment on above: Performed By: #### L 500.2900, L100.0200, L400.0100 #### [facility] [address] [place], [address] Neutrophils/100 WBC (Bld) 43.1 % Low 47-70 [facility] Comment on above: Performed By: #### L 500.2900, L100.0200, L400.0100 #### [facility] [address] [place], [address] NRBC # 0.00 10 3/uL Normal 0-5 [facility] Comment on above: Performed By: #### L 500.2900, L100.0200, L400.0100 #### [facility] [address] [place], [address] Nucleated RBC (Bld) [#/Vol] 0 10*3/uL Normal 0-5 [facility] Comment on above: Performed By: #### L 500.2900, L100.0200, L400.0100 #### [facility] [address] [place], [address] Platelet mean volume (Bld) [Entitic vol] 10.0 fL Normal 6.2-12.0 [facility] Comment on above: Performed By: #### L 500.2900, L100.0200, L400.0100 #### [facility] [address] [place], [address] Platelets (Bld) [#/Vol] 351 10*3/uL Normal 150-450 [facility] Comment on above: Performed By: #### L 500.2900, L100.0200, L400.0100 #### [facility] [address] [place], [address] RBC (Bld) [#/Vol] 4.59 10*6/uL Normal 4.2-5.4 [facility] Comment on above: Performed By: #### L 500.2900, L100.0200, L400.0100 #### [facility] [address] [place], [address] RDW SD 37.7 fl Normal 35.1-43.9 [facility] Comment on above: Performed By: #### L 500.2900, L100.0200, L400.0100 #### [facility] [address] [place], [address] WBC (Bld) [#/Vol] 7.8 10*3/uL Normal 4.4-11.0 [facility] Comment on above: Performed By: #### L 500.2900, L100.0200, L400.0100 #### [facility] [address] [place], [address] Calculated very low density lipoprotein (VLDL) cholesterol measurementOrdered By: HEALTH ASSESSMENT on 05-04-2025 Calculated very low density lipoprotein (VLDL) cholesterol measurement 18 mg/dL 5-40 [facility] Carbon dioxide, total [Moles /volume] in Central venous bloodOrdered By: HEALTH ASSESSMENT on 05-04-2025 CO2 [Moles/Vol] 27.1 mmol/L 21.0-32.0 [facility] Chloride assayOrdered By: HE ALTH ASSESSMENT on 05-04-2025 Chloride [Moles/Vol] 103 mmol/L 98-108 [facility] Employee Profileon CHOL:HDL 2.59 Normal [facility] Comment on above: Performed By: #### L 500.2900, L100.0200, L400.0100 #### [facility] [address] [place], [address] Cholesterol [Mass/Vol] 212 mg/dL High <=200 [facility] Comment on above: Result Comment: Chol esterol level, Desirable <200 mg/dL Borderline high cholesterol 200-239 mg/dL High cholesterol >=240 mg/dL Recommendations of the NCEP Adult Treatment Panel for the following risk-cutoff thresholds for the [place] population. Performed By: #### L 500.2900, L100.0200, L400.0100 #### [facility] [address] [place], [address] Cholesterol in HDL [Mass/Vol] 82 mg/dL Normal [facility] Comment on above: Result Comment: Judy onal Cholesterol Education Program (NCEP) guidelines: <40 mg/dL: Low HDL-cholesterol (major risk factor for CHD) >= 60 mg/dL: High HDL-cholesterol (negative risk factor for CHD) HDL-cholesterol is affected by a number of factors, e.g. smoking, exercise, hormones, sex and age. Performed By: #### L 500.2900, L100.0200, L400.0100 #### [facility] [address] [place], [address] Cholesterol in LDL [Mass/Vol] 112 mg/dL Normal [facility] Comment on above: Result Comment: Bord blknxi=149-322 mg/dL Higher Ibab=605 mg/dL or greater Friedwald Equation for LDL-C Performed By: #### L 500.2900, L100.0200, L400.0100 #### [facility] [address] [place], [address] Cholesterol in VLDL [Mass/Vol] 18 mg/dL Normal 5-40 [facility] Comment on above: Performed By: #### L 500.2900, L100.0200, L400.0100 #### [facility] [address] [place], [address] LDH 173 U/L Normal 84-246 [facility] Comment on above: Performed By: #### L 500.2900, L100.0200, L400.0100 #### [facility] [address] [place], [address] Phosphate [Mass/Vol] 2.7 mg/dL Normal 2.7-4.5 [facility] Comment on above: Performed By: #### L 500.2900, L100.0200, L400.0100 #### [facility] [address] [place], [address] Triglyceride [Mass/Vol] 91 mg/dL Normal [facility] Comment on above: Result Comment: The drugs N-Acetylcysteine and Metamizole may falsely depress this assay. Normal range: <150 mg/dL Borderline High: 150-199 mg/dL High: 200-499 mg/dL Very High: >500 mg/dL Performed By: #### L 500.2900, L100.0200, L400.0100 #### [facility] [address] [place], [address] URIC 3.7 mg/dL Normal 2.6-6.0 [facility] Comment on above: Result Comment: The drugs N-Acetylcysteine and Metamizole may falsely depress this assay. Performed By: #### L 500.2900, L100.0200, L400.0100 #### [facility] [address] [place], [address] Erythrocyte distribution wid th ratioOrdered By: HEALTH ASSESSMENT on 05-04-2025 Erythrocyte distribution width (RBC) [Ratio] 11.9 % 11.6-14.6 [facility] Erythrocyte distribution wid th standard deviationOrdered By: HEALTH ASSESSMENT on 05-04-2025 Erythrocyte distribution width (RBC) [Ratio] 37.7 fl 35.1-43.9 [facility] Glomerular filtration rate ( GFR) estimation/1.73 sq m using serum, plasma, or whole bOrdered By: HEALTH ASSESSMENT on 05-04-2025 GFR/1.73 sq M.predicted among non-blacks MDRD (S/P/Bld) [Vol rate/Area] 105 mL/min/{1.73_m2} >60 [facility] Comment on above: mL/min/1.73m2 CKD-EP I Creatinine Equation (2020) Hematocrit Auto (Bld) [Volum e fraction]Ordered By: HEALTH ASSESSMENT on 05-04-2025 Hematocrit (Bld) [Volume fraction] 39.6 % 37-47 [facility] Hemoglobin measurementOrdere d By: HEALTH ASSESSMENT on 05-04-2025 Hemoglobin (Bld) [Mass/Vol] 13.1 g/dL 12.0-15.0 [facility] LDL calc ser/plasOrdered By: HEALTH ASSESSMENT on 05-04-2025 Cholesterol in LDL [Mass/Vol] 112 mg/dL [facility] Comment on above: Hreyniflki=614-454 m g/dL & Higher Tcld=745 mg/dL or greaterFriedwald Equation for LDL-C Laboratory - Chemistry and C hemistry - challengeOrdered By: HEALTH ASSESSMENT on 05-04-2025 AST [Catalytic activity/Vol] 27 U/L <32 [facility] Lactate dehydrogenase (LDH) measurementOrdered By: HEALTH ASSESSMENT on 05-04-2025 LDH [Catalytic activity/Vol] 173 U/L 84-246 [facility] MCV (mean corpuscular volume ) determinationOrdered By: HEALTH ASSESSMENT on 05-04-2025 MCV (RBC) [Entitic vol] 86.3 fL 81-99 [facility] Mean corpuscular hemoglobin (MCH) determinationOrdered By: HEALTH ASSESSMENT on 05-04-2025 MCH (RBC) [Entitic mass] 28.5 pg 27.0-32.0 [facility] Mean corpuscular hemoglobin concentration (MCHC) determinationOrdered By: HEALTH ASSESSMENT on 05-04-2025 MCHC (RBC) [Mass/Vol] 33.1 g/dL 32-36 [facility] Mean platelet volume determi nationOrdered By: HEALTH ASSESSMENT on 05-04-2025 Platelet mean volume (Bld) [Entitic vol] 10.0 fL 6.2-12.0 [facility] Neutrophil percentageOrdered By: HEALTH ASSESSMENT on 05-04-2025 Neutrophils/100 WBC (Bld) 43.1 % Low 47-70 [facility] Nucleated red blood cell per centageOrdered By: HEALTH ASSESSMENT on 05-04-2025 Nucleated RBC/100 WBC (Bld) [Ratio] 0 % 0-5 [facility] Platelet countOrdered By: HE ALTH ASSESSMENT on 05-04-2025 Platelets (Bld) [#/Vol] 351 10*3/uL 150-450 [facility] Potassium measurement (mass/ volume)Ordered By: HEALTH ASSESSMENT on 05-04-2025 Potassium (Unsp spec) [Mass/Vol] 3.5 mmol/L 3.3-5.1 [facility] RBC Auto (Bld) [#/Vol]Ordere d By: HEALTH ASSESSMENT on 05-04-2025 RBC (Bld) [#/Vol] 4.59 10*6/uL 4.2-5.4 [facility] Screening total cholesterol/ high density lipoprotein (HDL) cholesterol ratioOrdered By: HEALTH ASSESSMENT on 05-04-2025 Cholesterol.total/Chol esterol in HDL [Mass ratio] 2.59 {ratio} [facility] Serum creatinine measurement (mass/volume)Ordered By: HEALTH ASSESSMENT on 05-04-2025 Creatinine [Mass/Vol] 0.73 mg/dL 0.70-1.20 [facility] Serum globulin measurementOr dered By: HEALTH ASSESSMENT on 05-04-2025 Globulin (S) [Mass/Vol] 2.8 g/dL 2.2-4.2 [facility] Serum glucose measurement (m ass/volume)Ordered By: HEALTH ASSESSMENT on 05-04-2025 Glucose [Mass/Vol] 80 mg/dL 70-99 [facility] Serum or plasma alanine mckenna otransferase (ALT) measurementOrdered By: HEALTH ASSESSMENT on 05-04-2025 ALT [Catalytic activity/Vol] 21 U/L <35 [facility] Serum or plasma albumin malika urement (mass/volume)Ordered By: HEALTH ASSESSMENT on 05-04-2025 Albumin [Mass/Vol] 4.4 g/dL 3.5-5.0 [facility] Serum or plasma albumin/glob ulin mass ratioOrdered By: HEALTH ASSESSMENT on 05-04-2025 Albumin/Globulin [Mass ratio] 1.6 {ratio} 0.9-2.4 [facility] Serum or plasma alkaline hakeem sphatase measurementOrdered By: HEALTH ASSESSMENT on 05-04-2025 ALP [Catalytic activity/Vol] 63 U/L 35-104 [facility] Serum or plasma calcium malika urement (mass/volume)Ordered By: HEALTH ASSESSMENT on 05-04-2025 Calcium [Mass/Vol] 9.4 mg/dL 7.6-11.0 [facility] Serum or plasma cholesterol in HDL measurement (mass/volume)Ordered By: HEALTH ASSESSMENT on 05-04-2025 Cholesterol in HDL [Mass/Vol] 82 mg/dL >40 [facility] Comment on above: National Cholesterol Education Program (NCEP) guidelines:<40 mg/dL: Low HDL-cholesterol (major risk factor for CHD)>= 60 mg/dL: High HDL-cholesterol (negative risk factor for CHD)HDL-cholesterol is affected by a number of factors, e.g. smoking, exercise, hormones, sex and age. Serum or plasma cholesterol measurement (mass/volume)Ordered By: HEALTH ASSESSMENT on 05-04-2025 Cholesterol [Mass/Vol] 212 mg/dL High <201 [facility] Comment on above: Cholesterol level, D esirable <200 mg/dLBorderline high cholesterol 200-239 mg/dLHigh cholesterol >=240 mg/dLRecommendations of the NCEP Adult Treatment Panel for the following risk-cutoff thresholds for the [place] population. Serum or plasma urea nitroge n measurement (mass/volume)Ordered By: HEALTH ASSESSMENT on 05-04-2025 Urea nitrogen [Mass/Vol] 9 mg/dL 4-19 [facility] Serum or plasma uric acid me asurement (mass/volume)Ordered By: HEALTH ASSESSMENT on 05-04-2025 Urate [Mass/Vol] 3.7 mg/dL 2.6-6.0 [facility] Comment on above: The drugs N-Acetylcy steine and Metamizole may falsely depress this assay. Sodium levelOrdered By: [facility] ASSESSMENT on 05-04-2025 Sodium [Moles/Vol] 142 mmol/L 133-145 [facility] T4 Free Directon 05-04-2025 T4 FREE DIRECT 1.20 ng/dL Normal 0.76-1.46 [facility] Comment on above: Order Comment: Order Date: 04/19/25Order Info: [id number] - TSHOrder Info: [id number] - T4F Performed By: #### L 501.9520, L506.0400 ####[facility] [address] [place], [place], [address] T4 freeOrdered By: Chandler Shabazz on 05-04-2025 Free T4 [Mass/Vol] 1.20 ng/dL 0.76-1.46 [facility] TSH DL <= 0.005 mIU/L QnOrde red By: Mark Shabazz on 05-04-2025 TSH Qn 2.630 uIU/mL 0.300-4.20 0 [facility] Thyroid Stim Hormone (TSH)on 05-04-2025 TSH 2.630 uIU/mL Normal 0.300-4.20 0 [facility] Comment on above: Order Comment: Order Date: 04/19/25Order Info: 63 - TSHOrder Info: [id number] - T4F Performed By: #### L 501.9520, L506.0400 ####[facility] [address] [place], [place], [id number] Total proteinOrdered By: Boo [facility] ASSESSMENT on 05-04-2025 Protein [Mass/Vol] 7.2 g/dL 5.9-8.4 [facility] Triglycerides measurementOrd ered By: HEALTH ASSESSMENT on 05-04-2025 Triglyceride [Mass/Vol] 91 mg/dL <199 [facility] Comment on above: The drugs N-Acetylcy steine and Metamizole may falsely depress this assay. Normal range: <150 mg/dLBorderline High: 150-199 mg/dLHigh: 200-499 mg/dLVery High: >500 mg/dL Urinalysis, Employeeon 05-04 BILIRUBIN URINE Normal Negative [facility] Comment on above: Order Comment: Urine , Random Result Comment: NOT WANTED Performed By: #### L 500.2900, L100.0200, L400.0100 #### [facility] [address] [place], [address] Clarity (U) Normal Clear [facility] Comment on above: Order Comment: Urine , Random Result Comment: NOT WANTED Performed By: #### L 500.2900, L100.0200, L400.0100 #### [facility] [address] [place], [address] Color (U) Normal Yellow [facility] Comment on above: Order Comment: Urine , Random Result Comment: NOT WANTED Performed By: #### L 500.2900, L100.0200, L400.0100 #### [facility] [address] [place], [address] GLUCOSE, UR Normal Normal [facility] Comment on above: Order Comment: Urine , Random Result Comment: NOT WANTED Performed By: #### L 500.2900, L100.0200, L400.0100 #### [facility] [address] [place], [address] KETONE UR Normal Negative [facility] Comment on above: Order Comment: Urine , Random Result Comment: NOT WANTED Performed By: #### L 500.2900, L100.0200, L400.0100 #### [facility] [address] [place], [address] LEUK ESTERASE Normal Negative [facility] Comment on above: Order Comment: Urine , Random Result Comment: NOT WANTED Performed By: #### L 500.2900, L100.0200, L400.0100 #### [facility] [address] [place], [address] Nitrite Ql (U) Normal Negative [facility] Comment on above: Order Comment: Urine , Random Result Comment: NOT WANTED Performed By: #### L 500.2900, L100.0200, L400.0100 #### [facility] [address] [place], [address] OCCULT BLOOD-UR Normal Negative [facility] Comment on above: Order Comment: Urine , Random Result Comment: NOT WANTED Performed By: #### L 500.2900, L100.0200, L400.0100 #### [facility] [address] [place], [address] pH UR Normal 5.0 - 8.0 [facility] Comment on above: Order Comment: Urine , Random Result Comment: NOT WANTED Performed By: #### L 500.2900, L100.0200, L400.0100 #### [facility] [address] [place], [address] PROT DIPSTX Normal Negative [facility] Comment on above: Order Comment: Urine , Random Result Comment: NOT WANTED Performed By: #### L 500.2900, L100.0200, L400.0100 #### [facility] [address] [place], [address] SP.GR. DIPSTX Normal 1.002-1.03 0 [facility] Comment on above: Order Comment: Urine , Random Result Comment: NOT WANTED Performed By: #### L 500.2900, L100.0200, L400.0100 #### [facility] [address] [place], [address] UR Preservative Normal [facility] Comment on above: Order Comment: Urine , Random Result Comment: NOT WANTED Performed By: #### L 500.2900, L100.0200, L400.0100 #### [facility] [address] [place], [address] UROBILI Normal Normal [facility] Comment on above: Order Comment: Urine , Random Result Comment: NOT WANTED Performed By: #### L 500.2900, L100.0200, L400.0100 #### [facility] [address] [place], [address] White blood cell (WBC) count Ordered By: HEALTH ASSESSMENT on 05-04-2025 WBC (Bld) [#/Vol] 7.8 10*3/uL 4.4-11.0 [facility] Chiropractic Reporton 2024 Chiropractic Report [facility] [place] [address] OFFICE VISIT Date of Service: 04/30/25 MR#: [id number] Acct: [id number] Name: MICHELLE CARLIN Rep #: [id number] : 1980 Provider: YOHANA Saucedo Age/Sex: 44/F Location[facility] Status: Signed Intake Vital Signs 01/19/25 10:57 [...] mg PO QAM 05/16/24 04/30/25 His tory (Vyvmagalye) tizanidine 4 mg capsule 4 mg PO QHS 05/16/24 04/30/25 Hist ory qukaqpjvcd-dtwlqlebdemoj-tj ffeine 1 tab PO QHS Headache 06/12/24 History [...] and setting up for her sons birthday republican which contributed to her back pain over [...] and C7 (more content not included)... Normal [facility] Chiropractic Reporton 2024 Chiropractic Report [facility] [address] [place] [address] OFFICE VISIT Date of Service: 04/24/25 MR#: [id number] Acct: [id number] Name: MICHELLE CARLIN ANN Rep #: [id number] : 1980 Provider: YOHANA Saucedo Age/Sex: 44/F Location: [facility] Status: Signed Intake Vital Signs 01/19/25 10:57 [...] mg PO QHS 05/16/24 04/24/25 Hist ory nllngrrhxy-awzbxoiovxwyk-cj ffeine 1 tab PO QHS Headache 06/12/24 History [...] home: Yes additional social history: - Rashard RICK ACUPUNCTURE/ADJUSTMENT Chief Complaint: upper and low back [...] lumbar spi (more content not included)... Normal [facility] Chiropractic Reporton 2024 Chiropractic Report [facility] [address] [place] [address] OFFICE VISIT Date of Service: 04/16/25 MR#: [id number] Acct: [id number] Name: MICHELLE CARLIN ANN Rep #: [id number] : 1980 Provider: YOHANA Saucedo Age/Sex: 44/F Location: [facility] Status: Signed Intake Vital Signs 01/19/25 10:57 [...] mg PO QHS 05/16/24 04/16/25 Hist ory xxohidxzog-akmvozpaiuvza-pp ffeine 1 tab PO QHS Headache 06/12/24 History [...] spouse current occupational status: employed current occupation: [employer] [place] Smoking Status: Never smoker alcohol [...] thoraco-lumbar spasm (more content not included)... Normal [facility] Progress Noteon 04-16-2025 Progress Note [facility] Primary Care Physician: [...] is seen in the [facility]UROLOGY [facility] of [facility] for migraines. Patient states she has [...] Dispense Refill ALPRAZolam (Xanax) 0.5 MG tablet hlnrqkfeab-ryeeljlhvjydy-fj ffeine 50-325-40 MG tablet Take 1 tablet by [...] mL 9 mL IntraDERmal Once Mariana Acuña, [place] - SUDHAKAR lidoc (more content not included)... Normal [facility] Chiropractic Reporton 2024 Chiropractic Report [facility] [place] [address] OFFICE VISIT Date of Service: 04/03/25 MR#: [id number] Acct: [id number] Name: MICHELLE CARLIN Rep #: [id number] : 1980 Provider: YOHANA Bradley Do ssi Age/Sex: 44/F Location: [facility] Status: Signed Intake Vital Signs 01/19/25 10:57 Height 5 ft 4 in Intake Visit Reasons: ACUPUNCTURE/ADJUSTMENT Chief Complaint: neck and low back pain Allergies suture Allergy (Mild, Verified 03/29/25 10:25) pus tramadol (From Ultram) Adverse Reaction (Intermediate, Verified 03/29/25 10:25) hallucinations shellfish derived Adverse Reaction (Mild, Verified 03/29/25 10:25) Hives hydrocodone bitartrate (From Vicodin) Adverse Reaction (Verified 03/29/25 10:25) Vomiting [facility] Medical History Depression Anxiety Injury of head [...] performed: E-stim was not utilized. Acupoints Treated: DU20,BL10/23/25/40,GB20/21, HT7,SP6 Sterile, single use, solid filament needles were inserted at various depths and angles to release tight tissue, improve microcirculation and remove neuro-noxious chemicals via a myofascial twitch response. [place] were inserted, needle manipulation was performed. Needle removal was p (more content not included)... Normal [facility] Chiropractic Reporton 2024 Chiropractic Report [facility] [address] [place] [address] OFFICE VISIT Date of Service: 03/29/25 MR#: [id number] Acct: [id number] Name: MICHELLE CARLIN ANN Rep #: [id number] : 1980 Provider: YOHANA Saucedo Age/Sex: 44/F Location: [facility] Status: Signed Intake Vital Signs 01/19/25 10:57 [...] mg PO QHS 05/16/24 03/29/25 Hist ory zsiqsazcfv-fbcfqjesemkpv-yq ffeine 1 tab PO QHS Headache 06/12/24 History [...] right tende (more content not included)... Normal [facility] Chiropractic Reporton 2024 Chiropractic Report [facility] [address] [place] [address] OFFICE VISIT Date of Service: 03/22/25 MR#: [id number] Acct: [id number] Name: MICHELLE CARLIN ANN Rep #: [id number] : 1980 Provider: YOHANA Saucedo Age/Sex: 44/F Location: [facility] Status: Signed Intake Vital Signs 01/19/25 10:57 [...] mg PO QAM 05/16/24 03/22/25 His tory (Vyvanse) tizanidine 4 mg capsule 4 mg PO QHS 05/16/24 03/22/25 Hist ory btvnhviuqj-lpdfadfmpkauq-gf ffeine 1 tab PO QHS Headache 06/12/24 History [...] Office Procedure (more content not included)... Normal [facility] L3410.9992on 03-16-2025 [facility] Misc. COMMENT Normal . [facility] Comment on above: Order Comment: 50544 5ehlers danlos testing Result Comment: Test Ordered: [id number] Wanda-Danlos Syndrome Panel Test(s) 794352-Orduyq was developed and its performance characteristics determined by [facility]. It has not been cleared or approved by the Food and Drug Administration. Result Comment [facility] Reference Range: . PDF report to be sent separately Performed at: [facility] [employer] [address], [place], [place] [id number] Hosiery Looper: Qian Dunn PhD, Phone: [phone] Performed at: [address] [id number] Hosiery Looper: Thai James PhD, Phone: [phone] Performed By: #### L 3430.0100, L101.9900, L503.0106, L501.6710, L3300.0960, L3100.5055, L3300.1800, L3410.9992, L3100.5310, L801.2600, L509.6001, L4600.0100, L3400.0200 ####[facility] [address] [place], [place], [id number] Chiropractic Reporton 2024 Chiropractic Report [facility] [place] [address] OFFICE VISIT Date of Service: 03/15/25 MR#: [id number] Acct: [id number] Name: MICHELLE CARLIN Rep #: [id number] : 1980 Provider: YOHANA Saucedo Age/Sex: 44/F Location: [facility] Status: Signed Intake Vital Signs 01/19/25 10:57 [...] mg PO QHS 05/16/24 03/15/25 Hist ory zmieodkklu-fqnnehkznybiu-xk ffeine 1 tab PO QHS Headache 06/12/24 History [...] spouse current occupational status: employed current occupation: [employer] [place] Smoking Status: Never smoker alcohol intake: [...] been a mild ache and rates it 1/10. She states her low back pain is [...] paraspinal tenderness (more content not included)... Normal [facility] Progress Noteon 03-06-2025 Progress Note Administrations This Visit onabotulinumtoxin A (BOTOX) injection 200 Units Admin Date 03/06/25 Action Given Dose 200 Units Route IntraMUSCular Site Other Administered By [place] Lara CNP Ordering Provider: [place] Lara CNP [facility]: [id number] Lot#: [id number] Can Washer: Allergan Patient Supplied? No Normal [facility] CCP IgG Antibodieson 025 CCP IgG Ab. 6 units Normal 0-19 [facility] Comment on above: Order Comment: Test( s) 791482-Rkoldudczdehnk; 642632-Hcezvyjnruf; 706608-Jjriisgmgle developed and its performance characteristicsdetermined by [employer]. It has not been cleared or approvedby the Food and Drug Administration. Result Comment: Nega tive <20 Weak positive 20 - 39 Moderate positive 40 - 59 Strong positive >59 Performed By: #### L 3430.0100, L101.9900, L503.0106, L501.6710, L3300.0960, L3100.5055, L3300.1800, L3410.9992, L3100.5310, L801.2600, L509.6001, L4600.0100, L3400.0200 ####[facility] [address] [place], [address] Catecholamines, Plasmaon DOPAMINE 12.5 pg/mL Normal 0.0-36.7 [facility] Comment on above: Order Comment: Test( s) 519520-Jkgqxwrbwgfxgt; 146823-Vawxujtawux; 260795-Gyqfqfaxjhg developed and its performance characteristicsdetermined by [employer]. It has not been cleared or approvedby the Food and Drug Administration. Result Comment: Miriam cholamines, Plasma reference intervals based on patient in supine position for at least 20 minutes. Performed By: #### L 3430.0100, L101.9900, L503.0106, L501.6710, L3300.0960, L3100.5055, L3300.1800, L3410.9992, L3100.5310, L801.2600, L509.6001, L4600.0100, L3400.0200 ####[facility] [address] [place], [address] EPINEPHRINE 39.0 pg/mL Normal 0.0-55.4 [facility] Comment on above: Order Comment: Test( s) 083087-Ufdvqdryczznmj; 884697-Ysghcrozlxs; 446776-Bctexebqxsn developed and its performance characteristicsdetermined by [employer]. It has not been cleared or approvedby the Food and Drug Administration. Performed By: #### L 3430.0100, L101.9900, L503.0106, L501.6710, L3300.0960, L3100.5055, L3300.1800, L3410.9992, L3100.5310, L801.2600, L509.6001, L4600.0100, L3400.0200 ####[facility] [address] [place], [place], [phone]) NOREPINEPHRINE 468 pg/mL Normal 115-524 [facility] Comment on above: Order Comment: Test( s) 028937-Bmwwydgstbvzpo; 211612-Qrwmuqcquhn; 197241-Fnqqmzsdrrx developed and its performance characteristicsdetermined by [employer]. It has not been cleared or approvedby the Food and Drug Administration. Performed By: #### L 3430.0100, L101.9900, L503.0106, L501.6710, L3300.0960, L3100.5055, L3300.1800, L3410.9992, L3100.5310, L801.2600, L509.6001, L4600.0100, L3400.0200 ####[facility] [address] [place], [address] Estrogen, Total, Serumon ESTROGENS,TOTAL 599 pg/mL Normal . [facility] Comment on above: Order Comment: Test( s) 726425-Byfmizgwjqvgqt; 005345-Ydtrmmpkmgp; 462537-Sxxwcuyxsui developed and its performance characteristicsdetermined by [employer]. It has not been cleared or approvedby the Food and Drug Administration.UNKN Result Comment: Prep ubertal < 40 Female Cycle: 1-10 Days 16 - 328 11-20 Days 34 - 501 21-30 Days 48 - 350 Post-Menopausal 40 - 244 Performed at: [address] [id number] Hosiery Looper: Luis Barnett MD, Phone: [phone] Performed at: [address] [id number] Hosiery Looper: Thai James PhD, Phone: [phone] Performed By: #### L 3430.0100, L101.9900, L503.0106, L501.6710, L3300.0960, L3100.5055, L3300.1800, L3410.9992, L3100.5310, L801.2600, L509.6001, L4600.0100, L3400.0200 ####[facility] [address] [place], [place], [id number] Gastrin, Serumon 02-26-2025 GASTRIN 25 pg/mL Normal 0-115 [facility] Comment on above: Order Comment: Test( s) 167829-Nmcrvdejzisdpy; 945022-Kxfpdvajiim; 525580-Pmsopswiuzv developed and its performance characteristicsdetermined by [facility]. It has not been cleared or approvedby the Food and Drug Administration.UNK Result Comment: [facility] Five Deltaulite 2000 Immunochemiluminometric assay (ICMA) Values obtained with different assay methods or kits cannot be used interchangeably. Results cannot be interpreted as absolute evidence of the presence or absence of malignant disease. Performed By: #### L 3430.0100, L101.9900, L503.0106, L501.6710, L3300.0960, L3100.5055, L3300.1800, L3410.9992, L3100.5310, L801.2600, L509.6001, L4600.0100, L3400.0200 ####[facility] [address] [place], [place], [address] Testosterone, Total / Freeon 02-26-2025 TESTOSTER,FREE 0.10 ng/dL Normal 0.10-0.85 [facility] Comment on above: Order Comment: Test( s) 856726-Zpmfvkxroiovea; 153818-Hyousuqndgn; 714613-Scwnoqzaacw developed and its performance characteristicsdetermined by [facility]. It has not been cleared or approvedby the Food and Drug Administration.NUNK Performed By: #### L 3430.0100, L101.9900, L503.0106, L501.6710, L3300.0960, L3100.5055, L3300.1800, L3410.9992, L3100.5310, L801.2600, L509.6001, L4600.0100, L3400.0200 ####[facility] [address] [place], [place], [id number] TESTOSTER,TOTAL 6 ng/dL Normal 4-50 [facility] Comment on above: Order Comment: Test( s) 961126-Cdyowirzsydhlu; 485735-Qhaxhtatazn; 536398-Hqyrucdocxi developed and its performance characteristicsdetermined by [facility]. It has not been cleared or approvedby the Food and Drug Administration.NUNK Performed By: #### L 3430.0100, L101.9900, L503.0106, L501.6710, L3300.0960, L3100.5055, L3300.1800, L3410.9992, L3100.5310, L801.2600, L509.6001, L4600.0100, L3400.0200 ####[facility] [address] [place], [place], [phone] TESTOSTERONE,%F 1.65 Normal 0.50-2.80 [facility] Comment on above: Order Comment: Test( s) 258422-Suqyzyrjhzhtsu; 157954-Repxxqtxxll; 103181-Fzinleavjda developed and its performance characteristicsdetermined by [facility]. It has not been cleared or approvedby the Food and Drug Administration.NUNK Performed By: #### L 3430.0100, L101.9900, L503.0106, L501.6710, L3300.0960, L3100.5055, L3300.1800, L3410.9992, L3100.5310, L801.2600, L509.6001, L4600.0100, L3400.0200 ####[facility] [address] [place], [place], [phone] PROGESTERONE 4317on 02-24-20 PROGESTERONE 0.1 ng/mL Normal . [facility] Comment on above: Order Comment: NUNK Result Comment: Foll icular phase 0.1 - 0.9 Luteal phase 1.8 - 23.9 Ovulation phase 0.1 - 12.0 First trimester 11.0 - 44.3 Second trimester 25.4 - 83.3 Third trimester 58.7 - 214.0 Postmenopausal 0.0 - 0.1 Performed at: [facility] [address] [id number] Hosiery Looper: Luis Barnett MD, Phone: [phone] Performed at: [facility] [address] [id number] Hosiery Looper: Thai James PhD, Phone: [phone] Performed By: #### L 3430.0100, L101.9900, L503.0106, L501.6710, L3300.0960, L3100.5055, L3300.1800, L3410.9992, L3100.5310, L801.2600, L509.6001, L4600.0100, L3400.0200 ####[facility] [address] [place], [place], [id number] Vitamin D 1,25-Dihydroxyon 0 02-23-2025 VIT D 1,25 DIHY 40.2 pg/mL Normal 24.8-81.5 [facility] Comment on above: Performed By: #### L 3430.0100, L101.9900, L503.0106, L501.6710, L3300.0960, L3100.5055, L3300.1800, L3410.9992, L3100.5310, L801.2600, L509.6001, L4600.0100, L3400.0200 ####[facility] [address] [place], [address] Chiropractic Reporton 2024 Chiropractic Report [facility]rop[facility] [place] [address] OFFICE VISIT Date of Service: 02/22/25 MR#: [id number] Acct: [id number] Name: MICHELLE CARLIN ANN Rep #: [id number] : 1980 Provider: YOHANA Saucedo Age/Sex: 44/F Location[place] [facility] Status: Signed Intake Vital Signs 01/19/25 10:57 [...] mg PO QHS 05/16/24 02/22/25 Hist ory scmbnyrtbp-nwmdwqhhmduhx-ff ffeine 1 tab PO QHS Headache 06/12/24 History [...] spouse current occupational status: employed current occupation: [employer] [place] Smoking Status: Never smoker alcohol intake: never substance use type: does not use seatbelt use: always do you feel safe at home: Yes additional social history: - Rashard RICK ACUPUNCTURE/ADJUSTMENT Chief Complaint: Back Pain/HAs Details: Michelle [...] back Duration: frequent Aggravating or associated factors: BENDING,LIFTING,TWISTING,st ress Relieving factors: CHIRO Pain Quality: aching, dull [...] lumbar s (more content not included)... Normal [facility] CRPon 02-21-2025 C-REACTIVE PROT < 3.00 Normal 0.0-3.0 [facility] Comment on above: Order Comment: RH-DU PLICATE ORDER FOR BOTH DRS Performed By: #### L 3430.0100, L101.9900, L503.0106, L501.6710, L3300.0960, L3100.5055, L3300.1800, L3410.9992, L3100.5310, L801.2600, L509.6001, L4600.0100, L3400.0200 ####[facility] [address] [place], [address] Erythrocyte Sed Rateon 02-21 SED RATE 9 mm/hr Normal 0-30 [facility] Comment on above: Order Comment: RH-DU PLICATE ORDER FOR BOTH DRS Performed By: #### L 3430.0100, L101.9900, L503.0106, L501.6710, L3300.0960, L3100.5055, L3300.1800, L3410.9992, L3100.5310, L801.2600, L509.6001, L4600.0100, L3400.0200 ####[facility] [address] [place], [address] Erythrocyte sedimentation ra teOrdered By: Unruly Toscano on 02-21-2025 ESR (Bld) [Velocity] 9 mm/h 0-30 [facility] FSH and LHon 02-21-2025 FSH 155.0 mIU/mL Normal [facility] Comment on above: Order Comment: RH-DU PLICATE ORDER FOR BOTH DRS Result Comment: FEMA LE: Follicular: 1.4 - 18.1 mIU/mL Midcycle: 3.4 - 33.4 mIU/mL Luteal: 1.5 - 9.1 mIU/mL Post Menopause: 23.0 - 116.3 mIU/mL MALE: 1.4 - 18.1 mIU/mL Performed By: #### L 3430.0100, L101.9900, L503.0106, L501.6710, L3300.0960, L3100.5055, L3300.1800, L3410.9992, L3100.5310, L801.2600, L509.6001, L4600.0100, L3400.0200 ####[facility] [address] [place], [address] LH 131.0 mIU/mL Normal [facility] Comment on above: Order Comment: RH-DU PLICATE ORDER FOR BOTH DRS Result Comment: FEMA LE: Follicular: 1.9-12.5 mIU/mL Midcycle: 8.7-76.3 mIU/mL Luteal: 0.5-16.9 mIU/mL Post Menopause: 15.9-54.0 mIU/mL MALE: 20-70 Years: 1.5-9.3 mIU/mL >70 Years: 3.1-34.6 mIU/mL Performed By: #### L 3430.0100, L101.9900, L503.0106, L501.6710, L3300.0960, L3100.5055, L3300.1800, L3410.9992, L3100.5310, L801.2600, L509.6001, L4600.0100, L3400.0200 ####[facility] [address] [place], [address] Free testosterone percentage Ordered By: Unruly Toscano on 02-21-2025 Testosterone Free/Testosterone.tota l [Mass fraction] 1.65 % 0.50-2.80 [facility] Gastrin, serumOrdered By: Ra erin Toscano on 02-21-2025 Gastrin [Mass/Vol] 25 pg/mL 0-115 [facility] Comment on above: Siemens Immulite 200 0 Immunochemiluminometric assay (ICMA)Values obtained with different assay methods or kits cannotbe used interchangeably. Results cannot be interpreted asabsolute evidence of the presence or absence of malignantdisease. L509.6001on 02-21-2025 CORTISOL 16.00 ug/dL Normal 6.02-18.40 [facility] Comment on above: Order Comment: RH-DU PLICATE ORDER FOR BOTH DRSUNK Performed By: #### L 3430.0100, L101.9900, L503.0106, L501.6710, L3300.0960, L3100.5055, L3300.1800, L3410.9992, L3100.5310, L801.2600, L509.6001, L4600.0100, L3400.0200 ####[facility] [address] [place], [address] LH ser/plasOrdered By: Rl dominguez Friend on 02-21-2025 Lutropin Qn 131.0 m[IU]/mL [facility] Comment on above: FEMALE:Follicular: 1 .9-12.5 mIU/mLMidcycle: 8.7-76.3 mIU/mLLuteal: 0.5-16.9 mIU/mLPost Menopause: 15.9-54.0 mIU/mLMALE:20-70 Years: 1.5-9.3 mIU/mL>70 Years: 3.1-34.6 mIU/mL Plasma epinephrine measureme nt (mass/volume)Ordered By: Unruly Toscano on 02-21-2025 EPINEPHrine (P) [Mass/Vol] 39.0 pg/mL 0.0-55.4 [facility] Plasma norepinephrine measur ement (mass/volume)Ordered By: Unruly Toscano on 02-21-2025 Norepinephrine (P) [Mass/Vol] 468 pg/mL 115-524 [facility] Rheumatoid Factoron 02-22-20 25 RHEUMATOID FAC < 10.0 Normal <15 [facility] Comment on above: Order Comment: RH-DU PLICATE ORDER FOR BOTH DRS Performed By: #### L 505.7010 ####[facility] [address] [place], [address] Serum or plasma C reactive p rotein measurement (mass/volume)Ordered By: Unrulyirina Toscano on 02-21-2025 CRP [Mass/Vol] mg/L 0.0-3.0 [facility] Serum or plasma calcitriol m easurement (mass/volume)Ordered By: Unrulybruce Toscano on 02-21-2025 1,25-dihydroxyvitamin D3 [Mass/Vol] 40.2 pg/mL 24.8-81.5 [facility] Serum or plasma cortisol tony surement (mass/volume)Ordered By: Unruly Toscano on 02-21-2025 Cortisol [Mass/Vol] 16.00 ug/dL 6.02-18.40 [facility] Serum or plasma cyclic citru llinated peptide IgG antibody assay (units/volume)Ordered By: Unrulyirina Toscano on 02-21-2025 Cyclic citrullinated peptide IgG Qn 6 units 0-19 [facility] Comment on above: Negative <20 Weak po sitive 20 - 39 Moderate positive 40 - 59 Strong positive >59 Serum or plasma dopamine tony surement (mass/volume)Ordered By: Unruly Toscano on 02-21-2025 DOPamine [Mass/Vol] 12.5 pg/mL 0.0-36.7 [facility] Comment on above: Catecholamines, Plas ma reference intervals based on patientin supine position for at least 20 minutes. Serum or plasma estrogen tony surement (mass/volume)Ordered By: Unruly Toscano on 02-21-2025 Estrogen [Mass/Vol] 599 pg/mL . [facility] Comment on above: Prepubertal < 40 Fem sarina Cycle: 1-10 Days 16 - 328 11-20 Days 34 - 501 21-30 Days 48 - 350 Post-Menopausal 40 - 244Performed at: [facility] [address] [place], [place] [id number] Director: Luis Barnett MD, Phone: [phone] at: [facility] [id number] [place], [place] [id number] Director: Thai James PhD, Phone: [phone] Serum or plasma free testost erone measurement (mass/volume)Ordered By: Unruly Toscano on 02-21-2025 Testosterone Free [Mass/Vol] 0.10 ng/dL 0.10-0.85 [facility] Serum rheumatoid factor dete ctionOrdered By: Mirna Gunderson on 02-21-2025 Rheumatoid factor Ql (S) < 10.0 IU/mL <15 [facility] Testosterone, totalOrdered B y: Unruly Toscano on 02-21-2025 Testosterone [Mass/Vol] 6 ng/dL 4-50 [facility] Vitamin B12on 02-21-2025 Cobalamin (Vitamin B12) [Mass/Vol] 1026 pg/mL High 180-914 [facility] Comment on above: Order Comment: RH-DU PLICATE ORDER FOR BOTH DRS Performed By: #### L 3430.0100, L101.9900, L503.0106, L501.6710, L3300.0960, L3100.5055, L3300.1800, L3410.9992, L3100.5310, L801.2600, L509.6001, L4600.0100, L3400.0200 ####[facility] [address] [place], [address] Vitamin B12 ser/plasOrdered By: Unruly Toscano on 02-21-2025 Cobalamin (Vitamin B12) [Mass/Vol] 1026 pg/mL High 180-914 [facility] Gastroenterology Visit Repor ton 02-20-2025 Gastroenterology Visit Report [facility] Gastroenterology [address] [place] [address] OFFICE VISIT Date of Service: 02/20/25 MR#: [id number] Acct: [id number] Name: MICHELLE CARLIN Rep #: [id number] : 1980 Provider: Unruly Toscano DO Age/Sex: 44/F Location[place] [facility] Status: Signed Intake Vital Signs 06/13/24 [...] mg PO QHS 05/16/24 02/20/25 Hist ory bgpqdjyeup-fyjhgxxfyakqp-sm ffeine 1 tab PO QHS Headache 06/12/24 History [...] home: Yes additional social history: - Rashard [facility] HPI Details: MICHELLE CARLIN, is a 44 [...] No findings to suggest SMA syndrome. GET 11.1.24 normal 46.84 minutes EGD and Colonoscopy 06.13.24 [...] with food, occasionally liquid as well. OV 7.09.16 pt reports continued symptoms of LLQ pain; is not as severe as long as she is having looser stools, epigastric discomfort, and daily nausea. Pt also notes loose stool after eating. ROS Const Constitutional: Pos (more content not included)... Normal [facility] Chiropractic Reporton 2024 Chiropractic Report [facility] Chiropractic [facility] [place] [address] OFFICE VISIT Date of Service: 02/06/25 MR#: [id number] Acct: [id number] Name: RAEGANGIANFRANCO Rep #: [id number] : 1980 Provider: YOHANA Saucedo Age/Sex: 44/F Location[facility] Status: Signed Intake Vital Signs 01/09/25 11:22 [...] mg PO QHS 05/16/24 02/06/25 Hist ory yvrrgfhzmm-itsfydyxpnicn-gd ffeine 1 tab PO QHS Headache 06/12/24 History [...] Yes additional social history: - Rashard HPI Back pain Chief Complaint: neck and [...] Yes thoraco-lum (more content not included)... Normal [facility] Hepatobilliary Img w/Pharm I nton 02-06-2025 Hepatobilliary Img w/Pharm Int [facility] Imaging Services [address] [place] [id number] Hepatobilliary Img w/Pharm Int MR#: [id number] Acct: [id number] Name: MICHELLE CARLIN ANN Rep #: [id number] : 1980 F 44 From: Bakari cantu MD PCP: Dr. Mark Shabazz MD Status: REG CLI Study: Hepatobilliary Img w/Pharm Int Date of Exam: 0 02/06/25 Exam# [id number] Ordering Dr: Unruly Toscano DO PROCEDURE: HEPATOBILLIARY [...] IMPRESSION: Normal gallbladder ejection fraction. Reading Location: [facility] CC: Dr. Mark Shabazz MD; Unruly Toscano DO Distribution Clerk: Signed Normal [facility] Chiropractic Reporton 2024 Chiropractic Report [facility] [address] [place] [address] OFFICE VISIT Date of Service: 01/29/25 MR#: [id number] Acct: [id number] Name: MICHELLE CARLIN ANN Rep #: [id number] : 1980 Provider: YOHANA Saucedo Age/Sex: 44/F Location: [facility] Status: Signed Intake Vital Signs 01/09/25 11:22 [...] mg PO QHS 05/16/24 01/29/25 Hist ory dzsbmcpbdq-tvwffjtmlrgna-kd ffeine 1 tab PO QHS Headache 06/12/24 History [...] spouse current occupational status: employed current occupation: [employer] [place] Smoking Status: Never smoker alcohol intake: never substance use type: does not use seatbelt use: always do you feel safe at home: Yes additional social history: - Rashard CABRERA BACK PAIN Chief Complaint: neck and low [...] left ( (more content not included)... Normal [facility] Chiropractic Reporton 2024 Chiropractic Report [facility] [address] [place] [address] OFFICE VISIT Date of Service: 01/23/25 MR#: [id number] Acct: [id number] Name: RAEGANGIANFRANCO Rep #: [id number] : 1980 Provider: YOHANA Saucedo Age/Sex: 44/F Location: [facility] [place] Status: Signed Intake Vital Signs 01/09/25 11:22 [...] mg PO QHS 05/16/24 01/23/25 Hist ory vfczibaoav-gmfbkjgacffnp-ja ffeine 1 tab PO QHS Headache 06/12/24 History [...] spouse current occupational status: employed current occupation: [employer] [place] Smoking Status: Never smoker alcohol [...] C7 Thorac (more content not included)... Normal [facility] Office Visiton 01-23-2025 Follow-up visit [id number] Michelle Carlin 1980 F Date Provider Department Center 01/23/2025 44006-FTCTFBMARIANA ACUÑA [facility] [place] [place] NEURO P None Family History Problem Relation [...] Sister Father's Sister Paternal Grandfather Level of Service:[address] [place] OFFICE/OUTPATIENT ESTABLISHED LOW MDM 20 MIN Reason for Visit and Comments: Procedure [88] Normal [facility] Progress Noteon 01-23-2025 Progress Note [facility] Primary Care Physician: [...] is seen in the NEUROLOGY CLINIC of [facility] for migraines. Patient states she has [...] Dispense Refill ALPRAZolam (Xanax) 0.5 MG tablet gayqrwfsty-gfpzmljbxpfhq-ha ffeine 50-325-40 MG tablet Take 1 tablet by [...] IntraDERmal Once Mariana Acuña APRN - SUDHAKAR triamcinolone acetonide (Kenalog) injection 10 mg 10 mg IntraMUSCular Once Mariana Acuña APRN - SUDHAKAR tr (more content not included)... Normal [facility] Discharge Instructionon 12-23 Discharge Instruction [facility] Medical Records Department [address] [place] [address] Instructions for Home/Discharge Instructions 01/19/25 1207 MR#: [id number] Acct: [id number] Name: MICHELLE CARLIN ANN Rep #: [id number] : 1980 44 From: Diann Perez MD PCP: Dr. Mark Shabazz MD Status:REG [facility] Discharge Instructions Diet Discharge Diet: No restrictions [...] With: Diann Perez MD When: Please call [phone] for an appointment to be seen in 2 week. Test Results: Test results from this visit will be discussed in further detail at your follow-up appointment, if applicable. Discharge Plan Admission Attending Provider: Diann Perez Primary Care Provider: Mark Shabazz Instructions Print Language: Portuguese Discharge Orders/Prescriptions Prescriptions: New oxycodone 5 mg [...] 100 mg tablet 1,140 mg PO DAILY uyxgojgfsv-xteqizecgddqh-cy ff 1 TABLET tablet 1 tab PO QHS Referrals / Follow Up: Mark Shabazz MD [Primary Care Provider] - Disposition Disposition (needs filled in before D/C Order can be placed): Home, Self Care 01/19/25 1209 Diann Perez MD CC: Dr. Mark Shabazz MD Signed [facility] MR/POSTOP.[facility] 01-19-2025 MR/POSTOP.[facility] Medical Records Department [address] [place] [address] Anesthesia Postop Eval I 01/19/25 1229 MR#: [id number] Acct: [id number] Name: MICHELLE CARLIN Rep #: [id number] : 1980 44 From: Sandra Rowley CRNA PCP: Dr. Mark Shabazz MD Status:REG [facility] Y Race: C Location: [place] [address] Anesthesia: Postop Eval I Current Vital Signs [...] 1 completed: Yes 01/19/25 1231 Date Sandra Negrotiffanieclaudia ASSOCIATE [employer] Cosigner Signature: Date CC: Signed Normal [facility] MR/QXYFPAUA4tr 01-19-2025 MR/POSTOPAN2 [facility] Medical Records Department [address] [place] [address] Anesthesia Postop Eval II 01/19/25 1640 MR#: [id number] Acct: [id number] Name: MICHELLE CARLIN ANN Rep #: [id number] : 1980 44 From: Elis Molina CRNA PCP: Dr. Mark Shabazz MD Status:[facility] Y Race: C Location: [facility] Anesthesia Postop Eval I Sum Postop Eval Completion status Anesthesia document: Postop Eval 1 completed: Yes Anesthesia Postop Eval I Summary Anesthesia Postop Eval I Summary: Anesthesia Postop Eval I: Assessment Summary Airway patent Yes 01/19/25 12:31 [employer]GDOTT Spontaneous unlabored Yes 01/19/25 12:31 [employer]GDOTT respirations Mental status Awake,Calm 01/19/25 12:31 [employer]GDOTT nausea No 01/19/25 12:31 [employer]GDOTT Vomiting No 01/19/25 12:31 [employer]GDOTT Anesthesia Postop Eval I: Fluid Summary Crystalloid volume administer 600 01/19/25 12:31 [employer]GDOTT (ml) Colloids volume administered ( ml) Blood Product volume administered (ml) Total IV fluid infused 600 01/19/25 12:31 [employer]GDOTT Anesthesia Postop Eval I: Summary Notes Anesthesia Complication No 01/19/25 12:31 [employer]GDOTT Anesthesia Complication Comment: Post-operative progress note Anesthesia: Postop Eval II Evaluation Mental status: Awake Pain Level: 1 nausea: No Vomiting: No 01/19/25 1640 Date Elis Amayaigner Signature: Date CC: Signed Normal [facility] Operative Reporton 5 Operative Report [facility] Medical Records Department [address] [place] [address] Operative Report 01/19/25 1204 MR#: [id number] Acct: [id number] Name: MICHELLE CARLIN Rep #: [id number] : 1980 44 From: Diann Perez MD PCP: Dr. Mark Shabazz MD Status:[facility] Location: [place] [address] Operative Report (Standard) Operative Information Date of Procedure: 01/19/25 Pre-Operative Diagnosis: Left breast mass 12:00 3 cm from the nipple Post-Operative Diagnosis: Same Surgery/Procedure Performed: Ultrasound wire needle localization excisional left breast biopsy film producer: Yes Media Job Titles: Parth Alexander Tasks completed by first crusher: Opening closing and Retracting Type of Anesthesia: [...] was delivered into the wound. 2 silk phqlww-or-igofn stay suture was placed around the wire [...] MD; Dr. Diann Perez MD Signed Normal [facility] Surgery Specimen Level [place] 01-19-2025 Surgery Specimen Level IV Patient Age/Sex Location Account Attending Physician MICHELLE CARLIN 44/F [facility] [id number] Dr. Diann Perez MD Specimen: [id number] Received: 01/19/25 Status: THOMAS Hardy Num: [id number] Spec Type: BREAST BX Subm Dr: Dr. [...] Time: 1 minute Fixation Time: 7 hours MICROSCOPIC DIAGNOSIS A. Left breast, mass, wire-localization [...] formalin fixation: Between 6 and 72 hours. [facility] 01-19-2025 CPT:21344 Patient Age/Sex Location Account Attending Physician MICHELLE CARLIN 44/F [facility] [id number] Dr. Diann Perez MD Signed (signature on file) Dr. Day Marical MD 01/22/25 1529 Normal [facility] Comment on above: Performed By: #### P SUIV ####[facility] [address] [place], [place], [address] MR/PATNichole 01-10-2025 MR/PAT.[facility]UD [facility] Medical Records Department [address] [place] [address] PAT - Anesthesia 01/10/25 1140 MR#: [id number] Acct: [id number] Name: MICHELLE CARLIN ANN Rep #: [id number] : 1980 44 From: Domingo Gupta MD PCP: Dr. 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 Hx Hospitalization No 01/10/25 11:26 Any Problems [...] take am of surgery PONV PONV - inverform machine operator: PONV - inverform machine operator Female Yes 01/10/25 11:26 HX of Motion [...] 12/25/24 15:07 Respiratory Assessment Respiratory Assessment - inverform machine operator: Respiratory Tract Infection Hx - inverform machine operator Hx Respiratory Tract Infection No 01/10/25 11:26 STOP Sleep Apnea STOP Sleep Apnea - inverform machine operator: STOP Sleep Apnea - inverform machine operator Hx Hypertension No 01/10/25 11:26 Hx Sleep [...] Tobacco Use History Tobacco Use History - inverform machine operator: Tobacco Use History - inverform machine operator Tobacco Use Smoking Status Never smoker 01/10/25 11:26 Hx Tobacco Use No 01/10/25 11:26 Years Smoking Packs Smoked per Day Smoking Cessation Date was within the last 15 years Hx Smoking Cessation Date Hx Smoking Cessation Counseling Hematologic Medial History Hematologic Hx - inverform machine operator: 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 Normal [facility] Cerv Spine 2 or 3 Viewson Cerv Spine 2 or 3 Views [facility] Imaging Services [address] [place], [place] [id number] Cerv Spine 2 or 3 Views MR#: [id number] Acct: [id number] Name: MICHELLE CARLIN ANN Rep #: [id number] : 1980 F 44 From: Rickie Smith MD PCP: Dr. Mark Shabazz MD Status: REG CLI Study: Cerv Spine 2 or 3 Views Date of Exam: 01/09/25 Exam# [id number] Ordering Dr: Mirna Gunderson D.C. PROCEDURE: CERV [...] No prevertebral soft tissue swelling. Reading Location: [facility] CC: YOHANA Gunderson; Dr. Mark Shabazz MD Distribution Clerk: Signed Normal [facility] Chiropractic Reporton 2024 Chiropractic Report [facility]rop[facility] [address] [place] [address] OFFICE VISIT Date of Service: 01/09/25 MR#: [id number] Acct: [id number] Name: MICHELLE CARLIN Rep #: [id number] : 1980 Provider: YOHANA Saucedo Age/Sex: 44/F Location: [facility] Status: Signed Intake Vital Signs 06/13/24 13:21 [...] mg PO QHS 05/16/24 01/09/25 Hist ory micvaxqasb-cvczmxcfwbxuu-ui ffeine 1 tab PO QHS Headache 06/12/24 History 50 mg-325 mg-40 mg tablet diphenhydramine HCl 25 mg capsule 25 mg PO QHS 12/25/24 01/09/25 Hi story (Benadryl) [facility] Medical History (Updated 01/10/25 @ 09:[address] Mirna Gunderson, [place]) Depression Anxiety Injury of head and neck [...] spouse current occupational status: employed current occupation: [employer] [place] Smoking Status: Never smoker alcohol intake: never substance use type: does not use seatbelt use: always do you feel safe at home: Yes additional social history: - Rashard HPI BACK PAIN Chief Complaint: neck and low back pain Visit Number: 1 Details: Michelle is a 44 y/o female here to establish for healthcare interpreter. Pt. advises she has been experiencing neck [...] to her BLE. Pt. has been getting healthcare interpreter for the past 10 years which is helpful temporarily. She also gets regular massages and uses a TENS unit at home to treat her pain. Location: neck and low back Duration: constant Aggravating or associated factors: bending, lifting, twisting Relieving factors: chiro (more content not included)... Normal [facility] L/S Spine Min 4 Viewson 05-2 0-5 L/S Spine Min 4 Views [facility] Imaging Services [address] [place], [place] [address] (167) L/S Spine Min 4 Views MR#: [id number] Acct: [id number] Name: MICHELLE CARLIN ANN Rep #: [id number] : 1980 F 44 From: Rickie Smith MD PCP: Dr. Mark Shabazz MD Status: REG CLI Study: L/S Spine Min 4 Views Date of Exam: 01/09/25 Exam# [id number] Ordering Dr: Mirna Gunderson D.C. PROCEDURE: L/S SPINE MIN 4 VIEWS 01/09/2025 REASON FOR EXAM: BACK PAIN TECHNIQUE: Four views; AP, bilateral oblique and lateral COMPARISON: None available FINDINGS: 5 onm-zhr-nvekxug lumbar vertebral type bodies identified. No fracture or malalignment. No evidence of spondylolysis. Disc spaces appear within limits. RAD/L/S Spine Min 4 Views IMPRESSION: Study appears within limits. Reading Location: [facility] CC: [place] Dr. Mirna Gunderson; Dr. Mark Shabazz MD Distribution Clerk: Signed Normal [facility] Enterography Abd/Baldev 01-03 Enterography Abd/Pel [facility] Imaging Services [address] [place] [address] Enterography Abd/Pel MR#: [id number] Acct: [id number] Name: MICHELLE CARLIN ANN Rep #: [id number] : 1980 F 44 From: Richard Mccray MD PCP: Dr. Mark Shabazz MD Status: REG CLI Study: Enterography Abd/Pel Date of Exam: 01/03/25 Exam# [id number] Ordering Dr: Unruly Toscano DO EXAM: ENTEROGRAPHY [...] colitis. 4. Status post hysterectomy Reading [facility] CC: Dr. Mark Shabazz MD; Unruly Toscano DO Distribution Clerk: Signed Normal [facility] Surgery Visit Reporton 12-25 Surgery Visit Report [facility] [address] [facility] [place] [address] OFFICE VISIT Date of Service: 12/25/24 MR#: [id number] Acct: [id number] Name: MICHELLE CARLIN ANN Rep #: [id number] : 1980 Provider: Dr. Diann narvaez MD Age/Sex: 44/F Location: [facility] Status: Signed Intake Vital Signs 11/22/24 [...] mg PO QHS 05/16/24 12/25/24 Hist ory wmbdoawvnq-hzgikesyvsxlr-za ffeine 1 tab PO QHS Headache 06/12/24 History 50 mg-325 mg-40 mg tablet diphenhydramine HCl 25 mg capsule 25 mg PO QHS 12/25/24 12/25/24 Hi story (Benadryl) [facility] Medical History Depression Anxiety Injury of head [...] spouse current occupational status: employed current occupation: [employer] [place] Smoking Status: Never smoker alcohol intake: [...] No hem (more content not included)... Normal [facility] Progress Noteon 12-12-2024 Progress Note 12/12/2024 Mariana Acuña BRUSH STAINER Trigger point injections Lidocaine [facility] 2984-6556-24 Lot [id number] 9ml Kenalog [facility] 8987-3821-59 Lot [id number] 1 ml Normal [facility] Progress Note Administrations This Visit onabotulinumtoxin A (BOTOX) injection 200 Units Admin Date 12/12/2024 Action Given Dose 200 Units Route IntraMUSCular Site Other Administered By MARIEL Ordering Provider: Mariana Acuña CNP [facility]:[id number] Lot#: [id number] Can Washer: allergan Patient Supplied?: no,buy and bill Normal [facility] Breast Bilateral W/O and Won 11-28-2024 Breast Bilateral W/O and W [facility] Imaging Services [address] [place], [place] [address] Breast Bilateral W/O and W MR#: [id number] Acct: [id number] Name: MICHELLE CARLIN Rep #: [id number] : 1980 F 44 From: Steffany Chambers MD PCP: Dr. Mark Shabazz MD Status: REG CLI Study: Breast Bilateral W/O and W Date of Exam: 11/28 Exam# [id number] Ordering Dr: Diann Perez MD PROCEDURE: BREAST [...] BI-RADS CATEGORY: BI-RADS 1: NEGATIVE Reading Location: [facility] CC: Dr. Mark Shabazz MD; Dr. Diann Perez MD Distribution Clerk: Signed Normal [facility] Magnetic resonance imaging r eportOrdered By: Steffany Chambers on 11-28-2024 Study report [facility] Imaging Services [address] [place], [place] [address] Breast Bilateral W/O and W MR#: [id number] Acct: [id number] Name: MICHELLE CARLIN Rep #: [id number] : 1980 F 44 From: Peggy Chambers MD PCP: Dr. Mark Shabazz MD Status: REG CLI Study:Breast Bilateral W/O and W Date of Exam : 11/28/24 Exam# [id number] Ordering Dr: Diann Perez MD PROCEDURE: BREAST [...] BI-RADS CATEGORY: BI-RADS 1: NEGATIVE Reading Location: [id number] CC: Dr. Mark Shabazz MD; Dr. Diann Perez MD ~ Distribution Clerk: Signed [facility] Surgery Visit Reporton 11-22 Surgery Visit Report [facility] [address] [place] [address] OFFICE VISIT Date of Service: 11/22/24 MR#: [id number] Acct: [id number] Name: MICHELLE CARLIN Rep #: [id number] : 1980 Provider: Dr. 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 Patient does have a Tyrer-Cuzi lifetime breast cancer risk of 28.2%. ROS [...] pressure, heart (more content not included)... Normal [facility] Breast imaging reportOrdered By: Willy Longo on 11-17-2024 Study report [facility] Imaging Services [address] [place], [place] [id number] DIAG MAMM W/CAD, BILAT MR#: [id number] Acct: [id number] Name: MICHELLE CARLIN Rep #: [id number] : 1980 F 44 From: Jelani Longo MD PCP: Dr. Mark Shabazz MD Status: REG CLI Study:DIAG MAMM W/CAD, BILAT Date of Exam: 11/14/24 Exam# [id number] Ordering Dr: Maryjane Alvarado ADDENDUM by Dr. Willy Longo MD on 11/17/24 at 1346 Correction: A targeted ultrasound examination was done and was negative. Reading Location: [place] [address] 11/17/24 1346 Date cc: GRAHAM Alvarado; Dr. [...] be mailed to the patient. Reading Location: [place] [address] CC: BUSINESS PROCESS COORDINATOR-Dylan Alvarado; Dr. Mark Shabazz MD ~ Distribution Clerk: Signed [facility] Breast Limited Unilateralon 11-14-2024 Breast Limited Unilateral [facility] Imaging Services [address] [place] [address] Breast Limited Unilateral MR#: [id number] Acct: [id number] Name: MICHELLE CARLIN ANN Rep #: [id number] : 1980 F 44 From: Willy Cruz PCP: Dr. Mark Shabazz MD Status: [facility] Study: Breast Limited Unilateral Date of Exam: Exam# [id number] Ordering Dr: Maryjane Alvarado BUSINESS PROCESS COORDINATOR-C PROCEDURE: BREAST LIMITED UNILATERAL 11/14/2024 REASON FOR [...] breast sonogram. Birads: 1, negative. [facility] CC: GRAHAM Alvarado; Dr. Mark Shabazz MD Distribution Clerk: Signed Normal [facility] DIAG MAMM W/CAD, BILATon DIAG MAMM W/CAD, BILAT [facility] Imaging Services [address] [place], [place] [id number] DIAG MAMM W/CAD, BILAT MR#: [id number] Acct: [id number] Name: MICHELLE CARLIN Rep #: [id number] : 1980 F 44 From: Willy Cruz PCP: Dr. Mark Shabazz MD Status: REG CLI Study: DIAG MAMM W/CAD, BILAT Date of Exam: 11/14/24 Exam# [id number] Ordering Dr: Maryjane Alvarado ADDENDUM by Dr. Willy Longo MD on 11/17/24 at 1346 Correction: A targeted ultrasound examination was done and was negative. [facility] 11/17/24 1346 Date cc: GRAHAM Alvarado; [...] be mailed to the patient. Reading Location: [place] [address] CC: GRAHAM Alvarado; Dr. Mark Shabazz MD Distribution Clerk: Signed Normal [facility] L506.1001on 11-01-2024 Vitamin D 25-OH 106.0 ng/mL High 30-100 [facility] Comment on above: Result Comment: [place] min D Status Deficiency: <20 ng/mL (50nmol/L) Insufficiency: 20-30 ng/mL (50-75 nmol/L) Sufficiency: 30-100 ng/mL (75-250 nmol/L) Toxicity: >100 ng/mL (>250 nmol/L) Performed By: #### L 506.1001, L900.0098 #### [facility] [address] [place], [address] Miscellaneous procedureOrder ed By: Mariana Cortez on 11-01-2024 Miscellaneous Test Comment SEE SCANNED REPORT [facility] NATERAon 11-01-2024 NATURA SEE SCANNED REPORT Normal [facility] Comment on above: Performed By: #### L 506.1001, L900.0098 #### [facility] [address] [place], [address] Civil Engineering Project Designer Office Visit Reporton 11-01-2024 Civil Engineering Project Designer Office Visit Report [facility] [address], [address] [place] [address] OFFICE VISIT Date of Service: 11/01/24 MR#: [id number] Acct: [id number] Name: MICHELLE CARLIN ANN Rep #: [id number] : 1980 Provider: GRAHAM dorado Age/Sex: 44/F Location: [facility] Status: Signed Intake Vital Signs 06/13/24 13:21 11/01/24 15:36 Height 5 ft 4 in 5 ft 4 in Intake Visit Reasons: Left breast lump per [place] Chief Complaint: Left breast lump Stock Plan Administrator Required: No Is patient in pain?: No [...] mg PO QHS 05/16/24 11/01/24 Hist ory hcyljqqwzx-axkefgrlzhlka-nc ffeine 1 tab PO QHS Headache 06/12/24 History 50 mg-325 mg-40 mg tablet fremanezumab-vfrm 225 mg/1.5 mL 225 mg subcut QMONTH 06/12/2410/21 History subcutaneous auto-injector (Ajovy) Is last menstrual period known: No Post menopausal: Yes Patient : No : No Control Method: Hysterectomy [facility] Medical History Depression Anxiety Injury of head [...] - Rashard HPI Left breast lump per [place] Details: MICHELLE CARLIN is a 44 year [...] Weight Infant Gen Labor Lgth Anesthesia Del Locatn Provider [...] of l (more content not included)... Normal [facility] Vitamin D, 25-hydroxyOrdered By: Mariana Cortez on 11-01-2024 Vitamin D 25-Hydroxy 106.0 ng/mL High 30-100 [facility] Comment on above: Vitamin D StatusDefi ciency: <20 ng/mL (50nmol/L)Insufficiency: 20-30 ng/mL (50-75 nmol/L)Sufficiency: 30-100 ng/mL (75-250 nmol/L)Toxicity: >100 ng/mL (>250 nmol/L) Progress Noteon 10-31-2024 Progress Note [facility] Primary Care Physician: [...] is seen in the [facility]OLOGY CL[facility]IC of [facility] for migraines. Patient states she has [...] mL 9 mL IntraDERmal Once Mariana Acuña, FINISHED HARDWARE ERECTOR - BRUSH STAINER triamcinolone acetonide (more content not included)... [facility] Progress Note 10/31/2024 Trigger point injections Mariana Acuña BRUSH STAINER Lidocaine [facility] 3680-0262-09 Lot [id number] 9 ml Kenalog [facility] 4945-2546-70 Lot [id number] 1 ml [facility] 29on 09-19-2024 29 Addended by: KAREN NGUYEN on: 09/19/2024 09:57 AM Modules accepted: Orders [facility] 29 Addended by: MARIANA ACUÑA on: 09/25/2024 07:08 AM Modules accepted: Orders [facility] Gastroenterology Visit Repor ton 09-19-2024 Gastroenterology Visit Report [facility] [address] [place] [address] OFFICE VISIT Date of Service: 09/19/24 MR#: [id number] Acct: [id number] Name: RAEGANMICHELLE DUBONGIANFRANCO Rep #: [id number] : 1980 Provider: Unruly Toscano DO Age/Sex: 44/F Location: [facility] Status: Signed Intake Vital Signs 06/06/20 14:05 [...] 4 mg PO QHS 05/16/24 09/19/24 History qxhyvgzrxz-rjoktzvebzpbg-pd ffeine 1 tab PO QHS Headache 06/12/24 09/19/24 History 50 mg-325 mg-40 mg tablet fremanezumab-vfrm 225 mg/1.5 mL 225 mg subcut QMONTH 06/12/24 09/19/24 History subcutaneous auto-injector (Ajovy) [facility] Medical History (Updated 06/12/24 @ 14:04 by [...] 11..24 normal 46.84 minutes EGD and Colonoscopy 24 EGD Esophageal mucosal changes suspicious for short-segment [...] of the ileum was normal. Biopsied. OV 1.28.25 pt reports continued symptoms from previous visit. [...] Inspection: norm (more content not included)... Normal [facility] Progress Noteon 09-19-2024 Progress Note Administrations This Visit onabotulinumtoxin A (BOTOX) injection 200 Units Admin Date 09/19/24 Action Given Dose 200 Units Route IntraMUSCular Site Other Administered By CLEVELAND Lara CNP Ordering Provider: CLEVELAND Lara CNP [facility]: 9333-6489-41 Lot#: [id number] Can Washer: Allergangelica Patient Supplied?: No Normal [facility] Wikidot [facility] SHS Calprotectin, Stoolon [address] 16 ug/g Normal 0-120 [facility] Comment on above: Result Comment: Conc entration Interpretation Follow-Up < 5 - 50 ug/g Normal None >50 -120 ug/g Borderline Re-evaluate in 4-6 weeks >120 ug/g Abnormal Repeat as clinically indicated Performed at: [facility] [address] [id number] Hosiery Looper: Luis Barnett MD, Phone: [phone] Performed By: #### L 7400.3300, M100.637, L7000.0700, M100.6796, M100.0605, L7000.0750, M600.5000 ####[facility] [address] [place], [address] Giardia Lamblia, Stool EIAon 08-18-2024 Giardia Stool Negative Normal Negative [facility] Comment on above: Result Comment: Perf ormed at: [facility] [address] [id number] Hosiery Looper: Luis Barnett MD, Phone: [phone] Performed at: [facility] [address] [id number] Hosiery Looper: Thai James PhD, Phone: [phone] Performed By: #### L 7400.3300, M100.637, L7000.0700, M100.6796, M100.0605, L7000.0750, M600.5000 ####[facility] [address] [place], [place], [address] L7000.0750on 08-18-2024 P ELASTASE,FECA 637 Normal >200 [facility] Comment on above: Result Comment: Resu lt Units: ug Elast./g Stool of watery consistency received. Since watery stool is inherently dilute, low test results should be interpreted with caution. Retesting on formed stool, if possible, is recommended. Severe Pancreatic Insufficiency: <100 Moderate Pancreatic Insufficiency: 100 - 200 Normal: >200 Performed By: #### L 7400.3300, M100.637, L7000.0700, M100.6796, M100.0605, L7000.0750, M600.5000 ####[facility] [address] [place], [address] Ova and Parasites 8623on OP OVA AND PARASITES EX AM, ROUTINE These results were obtained using wet preparation(s) and trichrome stained smear. This test does not include testing for Crytosporidium parvum, Cyclospora, or Microsporidia. One negative specimen does not rule out the possibility of a parasitic infection. ___ TESTING PERFORMED AT [facility]. ORIGINAL REPORT ON FILE IN LAB CONTAINS ADDITIONAL TEST SITE INFORMATION. ___ Ova/Parasite Exam NO OVA, CYSTS, OR PARASITES FOUND. Normal [facility] Comment on above: Performed By: #### L 7400.3300, M100.637, L7000.0700, M100.6796, M100.0605, L7000.0750, M600.5000 ####[facility] [address] [place], [place], [address] 36on 08-17-2024 36 Name of Caller: Jodi weiner Contact Reason for Appointment: Pt is requesting to reschedule appointment on 08/31/24 at 11:30 due to change in work schedule. Please see a list of dates below schedule and she will check her MyChart 08/24/24 anytime 09/19/24 surgical instrument technician no later than 9am 09/28/24 around noon Office Name: [facility] C. difficile DNA EMA+probe Q l (Unsp spec)Ordered By: Jayla Farnsworth on 08-15-2024 Clostridioides difficile (PCR) [facility] CDIFF (PCR)on 08-15-2024 CDIFF Pending 027 027 NAP1-B1 Presumptive Negative *for epidemiolologic???use C. Diff PCR Negative- No toxigenic C. Diff Detected Normal [facility] Comment on above: Performed By: #### L 7400.3300, M100.637, L7000.0700, M100.6796, M100.0605, L7000.0750, M600.5000 ####[facility] [address] [place], [address] Calprotectin stoolOrdered By : Jayla Farnsworth on 08-15-2024 Stool Calprotectin 16 ug/g 0-120 [facility] Comment on above: Concentration Interp retation Follow-Up< 5 - 50 ug/g Normal None>50 -120 ug/g Borderline Re-evaluate in 4-6 weeks >120 ug/g Abnormal Repeat as clinically indicatedPerformed at: [facility] [address] [id number] Director: Luis Barnett MD, Phone: [phone] ENTERIC PATHOGEN PANEL STOOL on 08-15-2024 EP [...] VIBRIO Not Detected Yersinia Not Detected Normal [facility] Comment on above: Performed By: #### L 7400.3300, M100.637, L7000.0700, M100.6796, M100.0605, L7000.0750, M600.5000 ####[facility] [address] [place], [place], [address] Elastase.pancreatic (Stl) [M ass/Mass]Ordered By: Jayla Farnsworth on 08-15-2024 Stool Pancreatic Elastase 637 >200 [facility] Comment on above: Result Units: ug Nelly st./gStool of watery consistency received. Since watery stool isinherently dilute, low test results should be interpretedwith caution. Retesting on formed stool, if possible, isrecommended. Severe Pancreatic Insufficiency: <100 Moderate Pancreatic Insufficiency: 100 - 200 Normal: >200 G. lamblia Ag IA Ql (Stl)Ord ered By: Jayla Farnsworth on 08-15-2024 Stool Giardia Antigen Negative Negative [facility] Comment on above: Performed at: [address] [id number] Director: Luis Barnett MD, Phone: [phone] at: - [facility] [id number] Director: Thai James PhD, Phone: [phone] Lactoferrin IA Ql (Stl)Order ed By: Jayla Farnsworth on 08-15-2024 Stool Lactoferrin [facility] Ova and parasitesOrdered By: Jayla Farnsworth on 08-15-2024 Ova and Parasites [facility] Stool Lactoferrin/WBCon 07-24 WBCST Normal Reference Ran ge = Negative Fecal WBC Lactoferrin Negative: No Fecal WBC Lactoferrin present Normal [facility] Comment on above: Performed By: #### L 7400.3300, M100.637, L7000.0700, M100.6796, M100.0605, L7000.0750, M600.5000 ####[facility] [address] [place], [address] Stool enteric pathogen panel by probe and target amplification methodOrdered By: Jayla Farnsworth on 08-15-2024 Enteric Bacteriology [facility] 36on 06-30-2024 36 Noted Normal [facility] 36on 06-29-2024 36 S: Michelle from [facility] pharmacy calling CAC d/t medication problem B: butalbital- acetaminophen- caffeine 50-325-40 mg tablet A: pharmacist calling stating received a controlled substance script that did not go through the controlled substance part of e script. States it does not list fouzia on script. Entire script with FOUZIA is in epic. R: Hung up with pharmacist and called [facility] pharmacy to verify speaking with [facility] pharmacist and gave requested information/ verification of script. Pt advised to call back with worsening of symptoms, concern or questions. Pt verbalized understanding. Reason for Disposition ? Pharmacy calling with prescription question and triager answers question Protocols used: Medication Question [id number] Normal [facility] Progress Noteon 06-29-2024 Progress Note [facility] Primary Care Physician: [...] is seen in the [facility] CL[facility]IC of [facility] for migraines. Patient states she has [...] 3 tiZANidine (Zanaflex) (more content not included)... [facility] 36on 06-26-2024 36 The patient has Leatt Botox appt on 09/05/24. The Botox is approved under the patient's Medical Benefit and should be done as Buy and Bill. See Media tab for Approval letter. BOTOX IS BUY AND BILL!!! Medication: Botox # of Unit to be Administered: 200 Prior Authorization: Approved (medical benefit) [place] reference #: [id number] Approval dates: 06/22/24-06/22/2025 Number of Units Approved: 800 units 4 treatments Normal [facility] Progress Noteon 06-05-2024 Progress Note Administrations This Visit onabotulinumtoxin A (BOTOX) injection 200 Units Admin Date 06/05/24 Action Given Dose 200 Units Route IntraMUSCular Site Other Administered By CLEVELAND Lara CNP Ordering Provider: CLEVELAND Lara CNP [facility]: 5529-8476-98 Lot#: [id number] Can Washer: Allergan Patient Supplied?: SAMPLE [facility] Final Surgical Pathology Rep flaco 10-14-2023 Final Surgical Pathology Report . Pathology Reports Accession: Collected Date/Time: Received Date/Time: Pathologist: [id number] 10/13/2023 12:05 EST 10/13/2023 14:06 KATHERINE GREEN [...] All parts labelled with patient name and [id number] A. Received in formalin labelled left lateral [...] Electronically Signed by Pathology Report verified by [facility] KATHERINE LINTON Sign out Date: 10/14/2023 11:52 Performing Lab: [facility], [address] [place] [address] Pathology Dept Disclaimer If ancillary studies were utilized, the following Laboratory Developed Test (LDT) disclaimer will apply: Under CLIA requirements, [facility] is qualified to perform high complexity testing. For all ancillary stains, positive and negative controls stain appropriately. Performance characteristics of immunohistochemical and chromogenic in-situ hybridization tests have been determined by [facility]. These tests are used for clinical purposes, They should not be regarded as investigational or for research. Normal [facility] ([place]) MA MAMMOGRAM DIAGNOSTIC BILA TERAL W/TOMOon 09-27-2023 MA MAMMOGRAM DIAGNOSTIC BILATERAL W/PALOMO ORIGINAL FROM: [place] [address] PROCEDURE FOR: MICHELLE CARLIN [address] [place] [address] Home: PID#: [id number] Exam#: [id number] : 1980 Age: 43 TO: ELIAN NESBITT MD [address] [place] [address] Fax: NO FAX EXAMINATION: DIAGNOSTIC BILATERAL MAMMOGRAM [...] Date: 09/27/2023 1:58:49 PM Ordering Provider: ELIAN SEALS CLINICAL: POST LUMPECTOMY RIGHT BREAST. Technology Specialist: TIA MYERS RT(R)(M)(CT) letter sent: Normal BI-RADS 1 and 2 Mammogram BI-RADS: 2 Benign Normal [facility] ([place] CALPROon 08-19-2023 Calprotectin, Fecal Quantitative 69.0 ug/g High <50 [facility] ([place] Comment on above: Result Comment: Perf ormed By: [facility] [employer] [place] [id number] Hosiery Looper: Nicholas Reyes III, M.D. CLIA#: [id number] Performed By: #### C ALPRO ####[address] [address] LABORATORYOrdered By: EDSON OLIVA CONTRIBUTOR_SYSTEM on 08-17-2023 Calprotectin, Fecal Quantitative 69.0 1 High <50 AO Sendouts SS Comment on above: Result Comment: Perf ormed By: [facility] [employer] [place] [address] Hosiery Looper: Nicholas Reyes III, M.D. CLIA#: [id number] .Auto Diffon 08-12-2023 Basophil, Absolute 0.0 10 3/mcL Normal 0.0-0.2 [facility]) Comment on above: Performed By: #### A DIFF, CRP, CBC, CMP, GFR, ANEU #### [address] [address] Basophils/100 WBC (Bld) 0.2 % Normal 0.0-2.5 [facility] ([place] Comment on above: Performed By: #### A DIFF, CRP, CBC, CMP, GFR, ANEU #### [address] [address] Eosinophil, Absolute 0.1 10 3/mcL Normal 0.0-0.4 [facility] ([place]) Comment on above: Performed By: #### A DIFF, CRP, CBC, CMP, GFR, ANEU #### [address] [address] Eosinophils/100 WBC (Bld) 0.9 % Normal 0.0-7.0 [facility] ([place] Comment on above: Performed By: #### A DIFF, CRP, CBC, CMP, GFR, ANEU #### [address] [address] Lymphocyte, Absolute 2.9 10 3/mcL Normal 0.8-3.9 [facility] ([place] Comment on above: Performed By: #### A DIFF, CRP, CBC, CMP, GFR, ANEU #### [address] [address] Lymphocytes/100 WBC (Bld) 41.8 % Normal 10.0-50.0 [facility] ([place] Comment on above: Performed By: #### A DIFF, CRP, CBC, CMP, GFR, ANEU #### [address] [address] Monocyte, Absolute 0.4 10 3/mcL Normal 0.2-1.0 [facility] ([place]) Comment on above: Performed By: #### A DIFF, CRP, CBC, CMP, GFR, ANEU #### [address] [address] Monocytes/100 WBC (Bld) 6.3 % Normal 1.7-13.0 [facility] ([place] Comment on above: Performed By: #### A DIFF, CRP, CBC, CMP, GFR, ANEU #### [address] [address] Neutrophils/100 WBC (Bld) 50.8 % Normal 37.0-80.0 [facility] ([place] Comment on above: Performed By: #### A DIFF, CRP, CBC, CMP, GFR, ANEU #### [address] [address] .GFRon 08-12-2023 GFR 110 ml/min/1.73sqm Normal [facility] ([place] Comment on above: Result Comment: GFR Population [...] DIFF, CRP, CBC, CMP, GFR, ANEU #### [address] [address] GFR Non- 91 ml/min/1.73sqm Normal [facility] ([place] Comment on above: Result Comment: GFR Population [...] DIFF, CRP, CBC, CMP, GFR, ANEU #### [address] [address] .NEUABSon 08-12-2023 Neutrophil, Absolute 3.6 10 3/mcL Normal 2.9-6.2 [facility] ([place] Comment on above: Performed By: #### A DIFF, CRP, CBC, CMP, GFR, ANEU #### [address] [address] CBCon 08-12-2023 Erythrocyte distribution width (RBC) [Ratio] 13.3 % Normal 11.5-14.5 [facility] ([place] Comment on above: Performed By: #### A DIFF, CRP, CBC, CMP, GFR, ANEU #### [address] [address] Hematocrit (Bld) [Volume fraction] 40.7 % Normal 37.0-47.0 [facility] ([place] Comment on above: Performed By: #### A DIFF, CRP, CBC, CMP, GFR, ANEU #### [place] [id number] Hgb 13.6 G/dL Normal 12.0-16.0 [facility] ([place] Comment on above: Performed By: #### A DIFF, CRP, CBC, CMP, GFR, ANEU #### [place] [address] MCH (RBC) [Entitic mass] 28.7 pg Normal 27.0-31.2 [facility] ([place] Comment on above: Performed By: #### A DIFF, CRP, CBC, CMP, GFR, ANEU #### [place] [address] MCHC 33.3 G/dL Normal 33.0-37.0 [facility] ([place] Comment on above: Performed By: #### A DIFF, CRP, CBC, CMP, GFR, ANEU #### [place] [address] MCV (RBC) [Entitic vol] 86.1 fL Normal 80.0-94.0 [facility] ([place] Comment on above: Performed By: #### A DIFF, CRP, CBC, CMP, GFR, ANEU #### [place] [id number] Platelet 460 10 3/mcL High 130-400 [facility] ([place] Comment on above: Performed By: #### A DIFF, CRP, CBC, CMP, GFR, ANEU #### [place] [address] Platelet mean volume (Bld) [Entitic vol] 7.9 fL Normal 7.4-10.4 [facility] ([place] Comment on above: Performed By: #### A DIFF, CRP, CBC, CMP, GFR, ANEU #### [place] [address] RBC 4.73 10 6/mcL Normal 4.20-5.40 [facility] ([place] Comment on above: Performed By: #### A DIFF, CRP, CBC, CMP, GFR, ANEU #### [address] [address] WBC 7.0 10 3/mcL Normal 4.6-10.8 [facility] ([place] Comment on above: Performed By: #### A DIFF, CRP, CBC, CMP, GFR, ANEU #### [address] [address] CMPon 08-12-2023 Albumin Level 3.7 G/dL Normal 3.5-5.0 [facility] ([place] Comment on above: Performed By: #### A DIFF, CRP, CBC, CMP, GFR, ANEU #### [address] [address] Albumin/Globulin [Mass ratio] 1.0 {ratio} Low 1.1-2.5 [facility] ([place] Comment on above: Performed By: #### A DIFF, CRP, CBC, CMP, GFR, ANEU #### [address] [address] ALP [Catalytic activity/Vol] 76 U/L Normal 40-135 [facility] ([place] Comment on above: Performed By: #### A DIFF, CRP, CBC, CMP, GFR, ANEU #### [address] [address] ALT [Catalytic activity/Vol] 22 U/L Normal 14-59 [facility] ([place] Comment on above: Performed By: #### A DIFF, CRP, CBC, CMP, GFR, ANEU #### [address] [address] AST [Catalytic activity/Vol] 16 U/L Normal 10-40 [facility] ([place] Comment on above: Performed By: #### A DIFF, CRP, CBC, CMP, GFR, ANEU #### [address] [address] Bili Total 0.3 mg/dL Normal 0.2-1.0 [facility] ([place] Comment on above: Result Comment: Use of this assay is not recommended for patients undergoing treatment with eltrombopag due to the potential for falsely elevated results. Performed By: #### A DIFF, CRP, CBC, CMP, GFR, ANEU #### [place] [address] BUN/Creatinine Ratio 7 ratio Normal 7-27 [facility] ([place] Comment on above: Performed By: #### A DIFF, CRP, CBC, CMP, GFR, ANEU #### [place] [address] Calcium [Mass/Vol] 9.6 mg/dL Normal 8.4-10.2 [facility] ([place]) Comment on above: Performed By: #### A DIFF, CRP, CBC, CMP, GFR, ANEU #### [place] [address] Chloride [Moles/Vol] 103 mmol/L Normal 98-107 [facility] ([place] Comment on above: Performed By: #### A DIFF, CRP, CBC, CMP, GFR, ANEU #### [place] [address] CO2 [Moles/Vol] 30 mmol/L High 22-29 [facility] ([place] Comment on above: Performed By: #### A DIFF, CRP, CBC, CMP, GFR, ANEU #### [place] [id number] Creatinine [Mass/Vol] 0.71 mg/dL Normal 0.55-1.02 [facility] ([place]) Comment on above: Performed By: #### A DIFF, CRP, CBC, CMP, GFR, ANEU #### [place] [id number] Electrolyte Balance 10.0 mEq/L Normal 4.0-15.0 [facility] ([place]) Comment on above: Performed By: #### A DIFF, CRP, CBC, CMP, GFR, ANEU #### [place] [id number] Globulin 3.6 G/dL Normal [facility] ([place] Comment on above: Performed By: #### A DIFF, CRP, CBC, CMP, GFR, ANEU #### [address] [address] Glucose [Mass/Vol] 107 mg/dL High 70-105 [facility] ([place] Comment on above: Performed By: #### A DIFF, CRP, CBC, CMP, GFR, ANEU #### [address] [address] Potassium [Moles/Vol] 4.2 mmol/L Normal 3.5-5.1 [facility] ([place] Comment on above: Performed By: #### A DIFF, CRP, CBC, CMP, GFR, ANEU #### [address] [address] Sodium [Moles/Vol] 143 mmol/L Normal 136-145 [facility] ([place] Comment on above: Performed By: #### A DIFF, CRP, CBC, CMP, GFR, ANEU #### [address] [address] Total Protein 7.3 G/dL Normal 6.4-8.2 [facility] ([place] Comment on above: Performed By: #### A DIFF, CRP, CBC, CMP, GFR, ANEU #### [address] [address] Urea nitrogen [Mass/Vol] 5 mg/dL Low 7-18 [facility] ([place] Comment on above: Performed By: #### A DIFF, CRP, CBC, CMP, GFR, ANEU #### [address] [address] CRPon 08-12-2023 C-Reactive Protein 0.3 mg/dL Normal 0.0-0.3 [facility] ([place] Comment on above: Performed By: #### A DIFF, CRP, CBC, CMP, GFR, ANEU #### [address] [address] [address] ABDOMEN/PELVIS W/CONTRAST on 08-06-2023 CT ABDOMEN/PELVIS W/CONTRAST ORIGINAL EXAMINATION: CT OF THE ABDOMEN AND PELVIS WITH EVABNLDL91/14/2023 3:12 pm TECHNIQUE: CT of the abdomen [...] 08/06/2023 8:02:56 AM Ordering Provider: TRUDI MURGUIA [facility] ([place]) FT3on 08-05-2023 Free T3 [Mass/Vol] 3.18 pg/mL Normal 2.30-4.00 [facility] ([place] Comment on above: Performed By: #### F T3, TSH, FT4 ####[address] [place] [place], [place] [address] FT4on 08-05-2023 Free T4 [Mass/Vol] 1.01 ng/dL Normal 0.76-1.46 [facility] ([place]) Comment on above: Performed By: #### F T3, TSH, FT4 ####[address] [place], [place] [address] LABORATORYOrdered By: SYSTEM SYSTEM on 08-05-2023 Free T3 [Mass/Vol] 3.18 pg/mL Normal 2.30 - 4.00 pg/mL AO ADM SS Free T4 [Mass/Vol] 1.01 ng/dL Normal 0.76 - 1.46 ng/dL AO ADM SS TSH Qn 1.94 m[IU]/L Normal 0.36 - 3.74 mcIU/mL AO ADM SS TSHon 08-05-2023 TSH Qn 1.94 m[IU]/L Normal 0.36-3.74 [facility] ([place]) Comment on above: Performed By: #### F T3, TSH, FT4 ####[address] [place], [place] [address] MRI BRAIN W/O CONTRASTon MRI BRAIN W/O [...] Date: 03/09/2023 9:03:20 AM Ordering Provider: JORDAN GUILLEN [facility] ([place]) XR ABDOMEN 2 VIEWS W/ DECUB/ ERECTon [...] Date: 03/08/2023 7:37:43 AM Ordering Provider: MARK SHABAZZ [facility]) .Auto Diffon 03-04-2023 Basophil, Absolute 0.0 10 3/mcL Normal 0.0-0.2 [facility] ([place] Comment on above: Performed By: #### H FP, ADIFF, LIPID, FT4, ANEU, GFR, CBC, ESR, TSH, BMP ####[address] [place], [place] [address] Basophils/100 WBC (Bld) 0.2 % Normal 0.0-2.5 [facility] ([place]) Comment on above: Performed By: #### H FP, ADIFF, LIPID, FT4, ANEU, GFR, CBC, ESR, TSH, BMP ####[address] [place], [place] [address] Eosinophil, Absolute 0.1 10 3/mcL Normal 0.0-0.4 [facility] ([place]) Comment on above: Performed By: #### H FP, ADIFF, LIPID, FT4, ANEU, GFR, CBC, ESR, TSH, BMP ####[address] [place] [place], [place] [address] Eosinophils/100 WBC (Bld) 1.0 % Normal 0.0-7.0 [facility] ([place]) Comment on above: Performed By: #### H FP, ADIFF, LIPID, FT4, ANEU, GFR, CBC, ESR, TSH, BMP ####[address] [place], [place] [address] Lymphocyte, Absolute 2.3 10 3/mcL Normal 0.8-3.9 [facility] ([place]) Comment on above: Performed By: #### H FP, ADIFF, LIPID, FT4, ANEU, GFR, CBC, ESR, TSH, BMP ####[address] [place], [place] [address] Lymphocytes/100 WBC (Bld) 34.4 % Normal 10.0-50.0 [facility] ([place]) Comment on above: Performed By: #### H FP, ADIFF, LIPID, FT4, ANEU, GFR, CBC, ESR, TSH, BMP ####[address] [place], [place] [address] Monocyte, Absolute 0.4 10 3/mcL Normal 0.2-1.0 [facility] ([place]) Comment on above: Performed By: #### H FP, ADIFF, LIPID, FT4, ANEU, GFR, CBC, ESR, TSH, BMP ####[address] [place], [place] [address] Monocytes/100 WBC (Bld) 5.4 % Normal 1.7-13.0 [facility] ([place]) Comment on above: Performed By: #### H FP, ADIFF, LIPID, FT4, ANEU, GFR, CBC, ESR, TSH, BMP ####[address] [place], [place] [address] Neutrophils/100 WBC (Bld) 59.0 % Normal 37.0-80.0 [facility] ([place]) Comment on above: Performed By: #### H FP, ADIFF, LIPID, FT4, ANEU, GFR, CBC, ESR, TSH, BMP ####[address] [place], [place] [address] .GFRon 03-04-2023 GFR 110 ml/min/1.73sqm Normal [facility] ([place]) Comment on above: Result Comment: GFR Population [...] ANEU, GFR, CBC, ESR, TSH, BMP ####[address] [place], [place] [address] GFR Non- 91 ml/min/1.73sqm Normal [facility] ([place]) Comment on above: Result Comment: GFR Population [...] ANEU, GFR, CBC, ESR, TSH, BMP ####[address] [place], [place] [address] .NEUABSon 03-04-2023 Neutrophil, Absolute 3.9 10 3/mcL Normal 2.9-6.2 [facility] ([place]) Comment on above: Performed By: #### H FP, ADIFF, LIPID, FT4, ANEU, GFR, CBC, ESR, TSH, BMP ####[address] [place], [place] [address] BMPon 03-04-2023 BUN/Creatinine Ratio 7 ratio Normal 7-27 [facility] ([place]) Comment on above: Performed By: #### H FP, ADIFF, LIPID, FT4, ANEU, GFR, CBC, ESR, TSH, BMP ####[address] [place], [place] [address] Calcium [Mass/Vol] 9.7 mg/dL Normal 8.4-10.2 [facility] ([place]) Comment on above: Performed By: #### H FP, ADIFF, LIPID, FT4, ANEU, GFR, CBC, ESR, TSH, BMP ####[address] [place], [place] [address] Chloride [Moles/Vol] 104 mmol/L Normal 98-107 [facility] ([place] Comment on above: Performed By: #### H FP, ADIFF, LIPID, FT4, ANEU, GFR, CBC, ESR, TSH, BMP ####[address] [place], [place] [address] CO2 [Moles/Vol] 31 mmol/L High 22-29 [facility] ([place]) Comment on above: Performed By: #### H FP, ADIFF, LIPID, FT4, ANEU, GFR, CBC, ESR, TSH, BMP ####[address] [place], [place] [address] Creatinine [Mass/Vol] 0.71 mg/dL Normal 0.55-1.02 [facility] ([place]) Comment on above: Performed By: #### H FP, ADIFF, LIPID, FT4, ANEU, GFR, CBC, ESR, TSH, BMP ####[address] [place], [place] [address] Electrolyte Balance 7.0 mEq/L Normal 4.0-15.0 [facility] ([place]) Comment on above: Performed By: #### H FP, ADIFF, LIPID, FT4, ANEU, GFR, CBC, ESR, TSH, BMP ####[address] [place], [place] [address] Glucose [Mass/Vol] 90 mg/dL Normal 70-105 [facility] ([place]) Comment on above: Performed By: #### H FP, ADIFF, LIPID, FT4, ANEU, GFR, CBC, ESR, TSH, BMP ####[address] [place], [place] [address] Potassium [Moles/Vol] 4.3 mmol/L Normal 3.5-5.1 [facility] ([place]) Comment on above: Performed By: #### H FP, ADIFF, LIPID, FT4, ANEU, GFR, CBC, ESR, TSH, BMP ####[address] [place], [place] [address] Sodium [Moles/Vol] 142 mmol/L Normal 136-145 [facility] ([place]) Comment on above: Performed By: #### H FP, ADIFF, LIPID, FT4, ANEU, GFR, CBC, ESR, TSH, BMP ####[address] [place], [place] [address] Urea nitrogen [Mass/Vol] 5 mg/dL Low 7-18 [facility] ([place]) Comment on above: Performed By: #### H FP, ADIFF, LIPID, FT4, ANEU, GFR, CBC, ESR, TSH, BMP ####[address] [place], [place] [address] CBCon 03-04-2023 Erythrocyte distribution width (RBC) [Ratio] 13.1 % Normal 11.5-14.5 [facility] ([place]) Comment on above: Performed By: #### H FP, ADIFF, LIPID, FT4, ANEU, GFR, CBC, ESR, TSH, BMP ####[address] [place], [place] [address] Hematocrit (Bld) [Volume fraction] 39.6 % Normal 37.0-47.0 [facility] ([place]) Comment on above: Performed By: #### H FP, ADIFF, LIPID, FT4, ANEU, GFR, CBC, ESR, TSH, BMP ####[address] [place] [id number] Hgb 13.3 G/dL Normal 12.0-16.0 [facility] ([place]) Comment on above: Performed By: #### H FP, ADIFF, LIPID, FT4, ANEU, GFR, CBC, ESR, TSH, BMP ####[address] [place] [id number] MCH (RBC) [Entitic mass] 28.8 pg Normal 27.0-31.2 [facility] ([place]) Comment on above: Performed By: #### H FP, ADIFF, LIPID, FT4, ANEU, GFR, CBC, ESR, TSH, BMP ####[address] [place] [id number] MCHC 33.5 G/dL Normal 33.0-37.0 [facility] ([place]) Comment on above: Performed By: #### H FP, ADIFF, LIPID, FT4, ANEU, GFR, CBC, ESR, TSH, BMP ####[address] [place], [place] [address] MCV (RBC) [Entitic vol] 85.9 fL Normal 80.0-94.0 [facility] ([place]) Comment on above: Performed By: #### H FP, ADIFF, LIPID, FT4, ANEU, GFR, CBC, ESR, TSH, BMP ####[address] [place] [id number] Platelet 361 10 3/mcL Normal 130-400 [facility] ([place]) Comment on above: Performed By: #### H FP, ADIFF, LIPID, FT4, ANEU, GFR, CBC, ESR, TSH, BMP ####[address] [place], [place] [address] Platelet mean volume (Bld) [Entitic vol] 8.3 fL Normal 7.4-10.4 [facility] ([place]) Comment on above: Performed By: #### H FP, ADIFF, LIPID, FT4, ANEU, GFR, CBC, ESR, TSH, BMP ####[address] [place] [address] RBC 4.61 10 6/mcL Normal 4.20-5.40 [facility] ([place]) Comment on above: Performed By: #### H FP, ADIFF, LIPID, FT4, ANEU, GFR, CBC, ESR, TSH, BMP ####[address] [place] [id number] WBC 6.6 10 3/mcL Normal 4.6-10.8 [facility] ([place]) Comment on above: Performed By: #### H FP, ADIFF, LIPID, FT4, ANEU, GFR, CBC, ESR, TSH, BMP ####[address] [place] [address] ESRon 03-04-2023 Erythrocyte Sed Rate 3 mm/hr Normal 0-20 [facility] ([place]) Comment on above: Performed By: #### H FP, ADIFF, LIPID, FT4, ANEU, GFR, CBC, ESR, TSH, BMP ####[address] [place], [place] [address] FT4on 03-04-2023 Free T4 [Mass/Vol] 0.95 ng/dL Normal 0.76-1.46 [facility] ([place]) Comment on above: Performed By: #### H FP, ADIFF, LIPID, FT4, ANEU, GFR, CBC, ESR, TSH, BMP ####[address] [place], [place] [address] HFPon 03-04-2023 Bili Indirect 0.2 mg/dL Normal [facility] ([place]) Comment on above: Performed By: #### H FP, ADIFF, LIPID, FT4, ANEU, GFR, CBC, ESR, TSH, BMP ####[address] [place] [address] Albumin Level 4.0 G/dL Normal 3.5-5.0 [facility] ([place]) Comment on above: Performed By: #### H FP, ADIFF, LIPID, FT4, ANEU, GFR, CBC, ESR, TSH, BMP ####[address] [place], [place] [address] Albumin/Globulin [Mass ratio] 1.2 {ratio} Normal 1.1-2.5 [facility] ([place]) Comment on above: Performed By: #### H FP, ADIFF, LIPID, FT4, ANEU, GFR, CBC, ESR, TSH, BMP ####[address] [place], [place] [address] ALP [Catalytic activity/Vol] 74 U/L Normal 40-135 [facility] ([place]) Comment on above: Performed By: #### H FP, ADIFF, LIPID, FT4, ANEU, GFR, CBC, ESR, TSH, BMP ####[address] [place], [place] [address] ALT [Catalytic activity/Vol] 29 U/L Normal 14-59 [facility] ([place]) Comment on above: Performed By: #### H FP, ADIFF, LIPID, FT4, ANEU, GFR, CBC, ESR, TSH, BMP ####[address] [place] [id number] AST [Catalytic activity/Vol] 19 U/L Normal 10-40 [facility] ([place]) Comment on above: Performed By: #### H FP, ADIFF, LIPID, FT4, ANEU, GFR, CBC, ESR, TSH, BMP ####[address] [place], [place] [address] Bili Direct 0.1 mg/dL Normal 0.0-0.2 [facility] ([place]) Comment on above: Result Comment: Use of this assay is not recommended for patients undergoing treatment with eltrombopag due to the potential for falsely elevated results. Performed By: #### H FP, ADIFF, LIPID, FT4, ANEU, GFR, CBC, ESR, TSH, BMP ####[address] [place], [place] [address] Bili Total 0.3 mg/dL Normal 0.2-1.0 [facility] ([place]) Comment on above: Result Comment: Use of this assay is not recommended for patients undergoing treatment with eltrombopag due to the potential for falsely elevated results. Performed By: #### H FP, ADIFF, LIPID, FT4, ANEU, GFR, CBC, ESR, TSH, BMP ####[address] [place], [place] [address] Globulin 3.4 G/dL Normal [facility] ([place]) Comment on above: Performed By: #### H FP, ADIFF, LIPID, FT4, ANEU, GFR, CBC, ESR, TSH, BMP ####[address] [place], [place] [address] Total Protein 7.4 G/dL Normal 6.4-8.2 [facility] ([place]) Comment on above: Performed By: #### H FP, ADIFF, LIPID, FT4, ANEU, GFR, CBC, ESR, TSH, BMP ####[address] [place], [place] [address] LABORATORYOrdered By: SYSTEM SYSTEM on 03-04-2023 Albumin [...] Workflow SS LABORATORYOrdered By: Kamilla Cohen on 07-13-2023 Cholesterol [Mass/Vol] 191 mg/dL Invalid Interpretation Code [...] 03-04-2023 Cholesterol [Mass/Vol] 191 mg/dL Normal 0-200 [facility] ([place]) Comment on above: Result Comment: Chol esterol Reference Interval: Less than 200 Desirable 200-239 Borderline high risk 240 and above High risk Performed By: #### H FP, ADIFF, LIPID, FT4, ANEU, GFR, CBC, ESR, TSH, BMP ####[address] [place], [place] [address] Cholesterol in HDL [Mass/Vol] 72 mg/dL High 40-60 [facility] ([place]) Comment on above: Performed By: #### H FP, ADIFF, LIPID, FT4, ANEU, GFR, CBC, ESR, TSH, BMP ####[address] [place], [place] [address] Cholesterol in LDL [Mass/Vol] 100 mg/dL Normal 0-130 [facility] ([place]) Comment on above: Performed By: #### H FP, ADIFF, LIPID, FT4, ANEU, GFR, CBC, ESR, TSH, BMP ####[address] [place], [place] [address] Triglyceride [Mass/Vol] 95 mg/dL Normal 0-150 [facility] ([place]) Comment on above: Result Comment: Trig lyceride Reference Interval: Less than 150 Normal 150-199 Borderline high risk 200-499 High risk 500 or higher Very high risk Performed By: #### H FP, ADIFF, LIPID, FT4, ANEU, GFR, CBC, ESR, TSH, BMP ####[address] [place], [place] [address] TSHon 03-04-2023 TSH Qn 4.87 m[IU]/L High 0.36-3.74 [facility] ([place]) Comment on above: Performed By: #### H FP, ADIFF, LIPID, FT4, ANEU, GFR, CBC, ESR, TSH, BMP ####[address] [place], [place] [address] HBV surface Ab Ql (S)on 12-22 HBV surface Ab Qn (S) 142.48 mIU/mL Normal >=12.00 [place] Comment on above: Order Comment: Specbhavani bourgeios Type: BLOOD SPECIMEN Ordering Facility: [facility] Address: [address] [place] [address] Performed By: #### R UBIGG, 66796-5, MEASLG, MUMPSG #### [facility] CLIA [id number] [address] [place] [address] [place] HBV surface Ab Ser Qlon 12-22 HBV surface Ab Ql (S) Positive Normal Positive [facility] Comment on above: Order Comment: [facility] Type: BLOOD SPECIMEN Ordering Facility: [facility] Address: [address] [place] [address] Result Comment: Thes e results are consistent with previous exposure and/or immunity to the hepatitis B virus antigen. Performed By: #### R UBIGG, 71034-8, MEASLG, MUMPSG #### [facility] CLIA [id number] [address] [place] [address] [place] MUMPS IGG ABon 01-15-2023 MUMPS IGG, QUAL Positive Normal Positive [place] Comment on above: Order Comment: [facility] Type: BLOOD SPECIMEN Ordering Facility: [facility] Address: [address] [place] [address] Result Comment: The result suggests recent or past exposure to Mumps virus or Mumps vaccination. The current test does not detect neutralizing antibodies. Positive result may also be seen due to presence of passively-transferred antibodies. Please correlate with patient's history. Performed By: #### R UBIGG, 54629-3, MEASLG, MUMPSG #### [facility] CLIA [id number] [address] [place] [address] [place] RUBELLA IGG ABon 01-15-2023 RUBELLA IGG AB, QUAL Positive Normal Positive [facility] Comment on above: Order Comment: Speci men Type: BLOOD SPECIMEN Ordering Facility: [facility] Address: [address] [place] [address] Result Comment: The result suggests recent or past exposure to Rubella virus or history of Rubella vaccination. Positive result may also be seen due to presence of passively-transferred antibodies. Please correlate with patient's history. Performed By: #### R UBIGG, 95113-6, MEASLG, MUMPSG #### [facility] CLIA [id number] [address] [place] [address] [place] RUBEOLA (MEASLES)IGGon 01-15 MEASLES IGG AB, QUAL Positive Normal Positive [facility] Comment on above: Order Comment: Speci men Type: BLOOD SPECIMEN Ordering Facility: [facility] Address: [address] [place] [address] Result Comment: The result suggests recent or past exposure to Measles virus or Measles vaccination. The current test does not detect neutralizing antibodies. Positive result may also be seen due to presence of passively-transferred antibodies. Please correlate with patient's history. Performed By: #### R UBIGG, 02534-4, MEASLG, MUMPSG #### [facility] CLIA [id number] [address] [place] [address] [place] Vital Signs Date Time Vital Sign Value Performing Clinician Dewey alicea 05-28-2025 10:16-0400 Body height 162.6 cm Mariana Acuña APRN - [employer] Work Phone: [facility] [employer] 05-28-2025 10:16-0400 Body mass index (BMI) [Ratio] 19.74 kg/m2 Mariana Domenico FINISHED HARDWARE ERECTOR - [employer] Work Phone: [facility] [employer] 05-28-2025 10:16-0400 Body temperature 97.9 [degF] Mariana Domenico FINISHED HARDWARE ERECTOR - [employer] Work Phone: [facility] [employer] 05-28-2025 10:16-0400 Body weight 52.16 kg Marianajohn Acuña FINISHED HARDWARE ERECTOR - [employer] Work Phone: [facility] [employer] 05-28-2025 10:16-0400 Diastolic blood pressure 79 mm[Hg] Marianapriya Acuña FINISHED HARDWARE ERECTOR - [employer] Work Phone: [facility] [employer] 05-28-2025 10:16-0400 Heart rate 79 /min Mariana Acuña FINISHED HARDWARE ERECTOR - [employer] Work Phone: [facility] [employer] 05-28-2025 10:16-0400 Systolic blood pressure 112 mm[Hg] Marianapriya Acuña FINISHED HARDWARE ERECTOR - [employer] Work Phone: [facility] [employer] 04-24-2025 10:32-0400 Body height 162.[address] Mark Shabazz MD Work Phone: [facility] 04-16-2025 10:47-0400 Diastolic blood pressure 66 mm[Hg] Marianapriya Acuña FINISHED HARDWARE ERECTOR - [employer] Work Phone: [facility] [employer] 04-16-2025 10:47-0400 Heart rate 68 /min Marianapriya Acuña FINISHED HARDWARE ERECTOR - [employer] Work Phone: [facility] [employer] 04-16-2025 10:47-0400 Systolic blood pressure 107 mm[Hg] Mariana Acuña FINISHED HARDWARE ERECTOR - [employer] Work Phone: [facility] [employer] 03-06-2025 09:50-0400 Body height 162.6 cm Mariana Acuña FINISHED HARDWARE ERECTOR - [employer] Work Phone: [facility] [employer] 03-06-2025 09:50-0400 Body mass index (BMI) [Ratio] 20.25 kg/m2 Mariana Acuña FINISHED HARDWARE ERECTOR - [employer] Work Phone: [facility] [employer] 03-06-2025 09:50-0400 Body temperature 97.9 [degF] Mariana Acuña FINISHED HARDWARE ERECTOR - [employer] Work Phone: [facility] [employer] 03-06-2025 09:50-0400 Body weight 53.52 kg Mariana Acuña FINISHED HARDWARE E[employer]OR - [employer] Work Phone: [facility] [employer] 03-06-2025 09:50-0400 Diastolic blood pressure 84 mm[Hg] Mariana Acuña FINISHED HARDWARE ERECTOR - [employer] Work Phone: [facility] [employer] 03-06-2025 09:50-0400 Heart rate 84 /min Mariana Acuña FINISHED HARDWARE ERECTOR - [employer] Work Phone: [facility] [employer] 03-06-2025 09:50-0400 Systolic blood pressure 114 mm[Hg] Mariana Acuña FINISHED HARDWARE ERECTOR - [employer] Work Phone: [facility] [employer] 01-23-2025 09:59-0400 Body mass index (BMI) [Ratio] 20.49 kg/m2 Mariana Acuña FINISHED HARDWARE ERECTOR - [employer] Work Phone: [facility] [employer] 01-23-2025 09:59-0400 Body temperature 98.2 [degF] Mariana Acuña FINISHED HARDWARE ERECTOR - [employer] Work Phone: [facility] [employer] 01-23-2025 09:59-0400 Body weight 54.16 kg Mariana Acuña FINISHED HARDWARE ERECTOR - [employer] Work Phone: [facility] [employer] 01-23-2025 09:59-0400 Diastolic blood pressure 72 mm[Hg] Mariana Acuña FINISHED HARDWARE ERECTOR - [employer] Work Phone: [facility] [employer] 01-23-2025 09:59-0400 Heart rate 85 /min Mariana Weaversey FINISHED HARDWARE ERECTOR - [employer] Work Phone: [facility] [employer] 01-23-2025 09:59-0400 Systolic blood pressure 131 mm[Hg] Mariana Weaversey FINISHED HARDWARE ERECTOR - [employer] Work Phone: [facility] [employer] 01-19-2025 13:08-0400 Body temperature 97.2 [degF] Dr. Mark Shabazz MD Work Phone: [facility] 01-19-2025 13:08-0400 Diastolic blood pressure 69 mm[Hg] Dr. Mark Shabazz MD Work Phone: [facility] 01-19-2025 13:08-0400 Heart rate 70 /min Dr. Mark Shabazz MD Work Phone: [facility] 01-19-2025 13:08-0400 Respiratory rate 16 /min Dr. Mark Shabazz MD Work Phone: 4(851)980-712842 [address] 01-19-2025 13:08-0400 SaO2% (BldA) [Mass fraction] 96 % Dr. Mark Shabazz MD Work Phone: 3(239)998-202600 [place] [address] 01-19-2025 13:08-0400 Systolic blood pressure 116 mm[Hg] Dr. Mark Shabazz MD Work Phone: 3(802)931-323300 [place] [address] 01-19-2025 10:57-0400 Body height 162.[address] Mark Shabazz MD Work Phone: 7(169)713-463642 [address] 01-19-2025 10:57-0400 Body mass index (BMI) [Ratio] 20.4 kg/m2 Dr. Mark Shabazz MD Work Phone: 8(604)195-228942 [address] 01-19-2025 10:57-0400 Body weight [address] Mark Shabazz MD Work Phone: 8(785)378-175342 [address] 01-09-2025 11:22-0400 Body height 162.[address] Mark Shabazz MD Work Phone: 6(156)068-555246 [place] [address] 01-09-2025 11:22-0400 Body mass index (BMI) [Ratio] 20.4 kg/m2 Dr. Mark Shabazz MD Work Phone: [facility] 01-09-2025 11:22-0400 Body weight 53.[address] Mark Shabazz MD Work Phone: 0(999)096-815742 [address] 01-09-2025 11:22-0400 Diastolic blood pressure 62 mm[Hg] Dr. Mark Shabazz MD Work Phone: [facility] 01-09-2025 11:22-0400 Systolic blood pressure 108 mm[Hg] Dr. Mark Shabazz MD Work Phone: [facility] 01-03-2025 14:23-0400 Diastolic blood pressure 66 mm[Hg] Dr. Mark Shabazz MD Work Phone: [facility] 01-03-2025 14:23-0400 Heart rate 77 /min Dr. Mark Shabazz MD Work Phone: 5(541)414-984300 [place] [address] 01-03-2025 14:23-0400 Respiratory rate 16 /min Dr. Mark Shabazz MD Work Phone: 7(770)721-686600 [place] [address] 01-03-2025 14:23-0400 SaO2% (BldA) [Mass fraction] 98 % Dr. Mark Shabazz MD Work Phone: [facility] 01-03-2025 14:23-0400 Systolic blood pressure 151 mm[Hg] Dr. Mark Shabazz MD Work Phone: 5(322)412-540300 [place] [address] 01-03-2025 12:30-0400 Body mass index (BMI) [Ratio] 19.7 kg/m2 Dr. Mark Shabazz MD Work Phone: 8(744)026-743900 [place] [address] 01-03-2025 12:30-0400 Body weight 52.[address] Mark Shabazz MD Work Phone: 3(970)539-630700 [place] [address] 12-25-2024 15:07-0400 Body mass index (BMI) [Ratio] 20.5 kg/m2 Dr. Mark Shabazz MD Work Phone: 4(614)033-715100 [place] [address] 12-25-2024 15:07-0400 Body weight 54.[address] Mark Shabazz MD Work Phone: [facility] 12-25-2024 15:07-0400 Diastolic blood pressure 68 mm[Hg] Dr. Mark Shabazz MD Work Phone: [facility] 12-25-2024 15:07-0400 Heart rate 64 /min Dr. Mark Shabazz MD Work Phone: [facility] 12-25-2024 15:07-0400 Respiratory rate 17 /min Dr. Mark Shabazz MD Work Phone: [facility] 12-25-2024 15:07-0400 SaO2% (BldA) [Mass fraction] 99 % Dr. Mark Shabazz MD Work Phone: [facility] 12-25-2024 15:07-0400 Systolic blood pressure 110 mm[Hg] Dr. Mark Shabazz MD Work Phone: [facility] 12-12-2024 10:04-0400 Body height 162.6 cm Marianajohn Acuña FINISHED HARDWARE ERECTOR - [employer] Work Phone: [facility] 12-12-2024 10:04-0400 Body mass index (BMI) [Ratio] 19.22 kg/m2 Mariana Domenico FINISHED H[employer]WARE E[employer]OR - [employer] Work Phone: [facility] 12-12-2024 10:04-0400 Body weight 50.8 kg Mariana Domenico FINISHED HARDWARE ERECTOR - [employer] Work Phone: [facility] 12-12-2024 10:04-0400 Diastolic blood pressure 70 mm[Hg] Mariana Acuña FINISHED HARDWARE ERECTOR - [employer] Work Phone: [facility] 12-12-2024 10:04-0400 Systolic blood pressure 114 mm[Hg] Marianajohn Acuña FINISHED HARDWARE ERECTOR - [employer] Work Phone: [facility] 11-22-2024 09:46-0400 Body height 162.[address] Mark Shabazz MD Work Phone: [facility] 11-22-2024 09:46-0400 Body mass index (BMI) [Ratio] 21.2 kg/m2 Dr. Mark Shabazz MD Work Phone: [facility] 11-22-2024 09:46-0400 Body weight 56.[address] Mark Shabazz MD Work Phone: [facility] 11-22-2024 09:46-0400 Diastolic blood pressure 86 mm[Hg] Dr. Mark Shabazz MD Work Phone: [facility] 11-22-2024 09:46-0400 Heart rate 71 /min Dr. Mark Shabazz MD Work Phone: [facility] 11-22-2024 09:46-0400 Respiratory rate 17 /min Dr. Mark Shabazz MD Work Phone: [facility] 11-22-2024 09:46-0400 SaO2% (BldA) [Mass fraction] 100 % Dr. Mark Shabazz MD Work Phone: [facility] 11-22-2024 09:46-0400 Systolic blood pressure 124 mm[Hg] Dr. Mark Shabazz MD Work Phone: [facility] 11-01-2024 15:36-0400 Body height 162.[address] Mark Shabazz MD Work Phone: [facility] 10-31-2024 09:31-0400 Body height 162.6 cm Mariana Acuña APRN - [employer] Work Phone: [facility] 10-31-2024 09:31-0400 Body mass index (BMI) [Ratio] 19.22 kg/m2 Mariana Acuña FINISHED H[employer] E[employer]OR - [employer] Work Phone: [facility] 10-31-2024 09:31-0400 Body weight 50.8 kg Mariana Acuña APRN - [employer] Work Phone: [facility] 10-31-2024 09:31-0400 Diastolic blood pressure 78 mm[Hg] Mariana Acuña FINISHED H[employer]WARE E[employer]OR - [employer] Work Phone: [facility] 10-31-2024 09:31-0400 Systolic blood pressure 118 mm[Hg] Mariana Acuña FINISHED HARDWARE ERECTOR - [employer] Work Phone: [facility] [employer] 09-19-2024 08:07-0500 Body height 162.6 cm Mariana Acuña FINISHED HARDWARE E[employer]OR - [employer] Work Phone: [facility] [employer] 09-19-2024 08:07-0500 Body mass index (BMI) [Ratio] 19.22 kg/m2 Mariana Acuña FINISHED H[employer]WARE E[employer]OR - [employer] Work Phone: [facility] [employer] 09-19-2024 08:07-0500 Body temperature 98.1 [degF] Mariana Acuña FINISHED H[employer] E[employer]OR - [employer] Work Phone: [facility] [employer] 09-19-2024 08:07-0500 Body weight 50.8 kg Mariana Acuña FINISHED HARDWARE ERECTOR - [employer] Work Phone: [facility] [employer] 09-19-2024 08:07-0500 Diastolic blood pressure 77 mm[Hg] Mariana Acuña FINISHED HARDWARE ERECTOR - [employer] Work Phone: [facility] [employer] 09-19-2024 08:07-0500 Heart rate 69 /min Mariana Acuña FINISHED HARDWARE ERECTOR - [employer] Work Phone: [facility] [employer] 09-19-2024 08:07-0500 Systolic blood pressure 121 mm[Hg] Mariana Acuña FINISHED HARDWARE ERECTOR - [employer] Work Phone: [facility] [employer] 06-29-2024 14:41-0500 Body temperature 97.9 [degF] Mariana Acuña FINISHED HARDWARE ERECTOR - [employer] Work Phone: [facility] [employer] 06-29-2024 14:41-0500 Diastolic blood pressure 78 mm[Hg] Mariana Acuña FINISHED HARDWARE ERECTOR - [employer] Work Phone: [facility] [employer] 06-29-2024 14:41-0500 Heart rate 72 /min Mariana Acuña FINISHED HARDWARE ERECTOR - [employer] Work Phone: [facility] [employer] 06-29-2024 14:41-0500 Systolic blood pressure 116 mm[Hg] Mariana Acuña FINISHED HARDWARE ERECTOR - [employer] Work Phone: [facility] [employer] 06-05-2024 14:07-0400 Body height 162.6 cm Mariana Acuña FINISHED HARDWARE ERECTOR - [employer] Work Phone: [facility] [employer] 06-05-2024 14:07-0400 Body mass index (BMI) [Ratio] 21.8 kg/m2 Mariana Acuña FINISHED HARDWARE ERECTOR - [employer] Work Phone: [facility] [employer] 06-05-2024 14:07-0400 Body temperature 97.39 [degF] Mariana Acuña FINISHED HARDWARE ERECTOR - [employer] Work Phone: [facility] [employer] 06-05-2024 14:07-0400 Body weight 57.61 kg Mariana Acuña FINISHED HARDWARE ERECTOR - [employer] Work Phone: [facility] [employer] 06-05-2024 14:07-0400 Diastolic blood pressure 86 mm[Hg] Mariana Acuña FINISHED HARDWARE ERECTOR - [employer] Work Phone: [facility] [employer] 06-05-2024 14:07-0400 Heart rate 75 /min Mariana Acuña FINISHED HARDWARE ERECTOR - [employer] Work Phone: [facility] [employer] 06-05-2024 14:07-0400 Systolic blood pressure 121 mm[Hg] Mariana Acuña FINISHED HARDWARE ERECTOR - [employer] Work Phone: [facility] [employer] 02-16-2024 09:04-0400 Body temperature 98.1 [degF] Mariana Acuña FINISHED HARDWARE ERECTOR - [employer] Work Phone: [facility] [employer] 02-16-2024 09:04-0400 Diastolic blood pressure 80 mm[Hg] Mariana Acuña FINISHED HARDWARE ERECTOR - [employer] Work Phone: [facility] [employer] 02-16-2024 09:04-0400 Heart rate 65 /min Mariana Acuña FINISHED HARDWARE ERECTOR - [employer] Work Phone: [facility] [employer] 02-16-2024 09:04-0400 Systolic blood pressure 127 mm[Hg] Mariana Acuña FINISHED HARDWARE ERECTOR - [employer] Work Phone: [facility] [employer] 01-04-2024 09:56-0400 Body temperature 98.1 [degF] Mariana Acuña FINISHED HARDWARE ERECTOR - [employer] Work Phone: [facility] 01-04-2024 09:56-0400 Diastolic blood pressure 83 mm[Hg] Mariana Acuña FINISHED HARDWARE ERECTOR - [employer] Work Phone: [facility] 01-04-2024 09:56-0400 Heart rate 76 /min Mariana Acuña FINISHED HARDWARE ERECTOR - [employer] Work Phone: [facility] 01-04-2024 09:56-0400 Systolic blood pressure 130 mm[Hg] Mariana Acuña FINISHED HARDWARE ERECTOR - [employer] Work Phone: [facility] 11-23-2023 13:30-0400 Body temperature 98.1 [degF] Mariana Acuña FINISHED HARDWARE ERECTOR - [employer] Work Phone: [facility] 11-23-2023 13:30-0400 Diastolic blood pressure 78 mm[Hg] Mariana Acuña FINISHED HARDWARE ERECTOR - [employer] Work Phone: [facility] 11-23-2023 13:30-0400 Heart rate 77 /min Mariana Acuña FINISHED HARDWARE ERECTOR - [employer] Work Phone: [facility] 11-23-2023 13:30-0400 Systolic blood pressure 108 mm[Hg] Mariana Acuña FINISHED HARDWARE ERECTOR - [employer] Work Phone: [facility] 10-13-2023 12:43-0500 Body temperature 96.8 [degF] ROXANA CLARK MD [facility] 10-13-2023 12:43-0500 Diastolic Blood Pressure Non-Invasive 77 mm[Hg] ROXANA CLARK MD [facility] 10-13-2023 12:43-0500 Heart rate 60 /min ROXANA CLARK MD [facility] 10-13-2023 12:43-0500 Reason For Taking VItal Signs ROXANA CLARK MD [facility] 10-13-2023 12:43-0500 Respiratory rate 16 /min ROXANA CLARK MD [facility] 10-13-2023 12:43-0500 Systolic Blood Pressure Non-Invasive 129 mm[Hg] ROXANA CLARK MD [facility] 10-13-2023 12:19-0500 Diastolic Blood Pressure Non-Invasive 81 mm[Hg] ROXANA CLARK MD [address] [place] [address] 10-13-2023 12:19-0500 Heart rate 66 /min ROXANA CLARK MD [address] 10-13-2023 12:19-0500 Mean blood pressure 97 mm[Hg] ROXANA CLARK MD [address] 10-13-2023 12:19-0500 Respiratory rate 16 /min ROXANA CLARK MD [address] [place] [address] 10-13-2023 12:19-0500 Systolic Blood Pressure Non-Invasive 133 mm[Hg] ROXANA CLARK MD [address] [place] [address] 10-13-2023 12:04-0500 Body temperature 97.34 [degF] ROXANA CLARK MD [facility] 10-13-2023 12:04-0500 Diastolic Blood Pressure Non-Invasive 87 mm[Hg] ROXANA CLARK MD [facility] 10-13-2023 12:04-0500 Heart rate 69 /min ROXANA CLARK MD [facility] 10-13-2023 12:04-0500 Mean blood pressure 98 mm[Hg] ROXANA CLARK MD [address] [place] [address] 10-13-2023 12:04-0500 Respiratory rate 14 /min ROXANA CLARK MD [address] [place] [address] 10-13-2023 12:04-0500 Systolic Blood Pressure Non-Invasive 122 mm[Hg] ROXANA CLARK MD [facility] 10-13-2023 11:55-0500 Heart rate 69 /min ROAXNA CLARK MD [facility] 10-13-2023 11:55-0500 Respiratory Rate - Anes 18 br/min ROXANA CLARK MD [facility] 10-13-2023 11:50-0500 Respiratory Rate - Anes 17 br/min ROXANA CLARK MD [facility] 10-13-2023 11:45-0500 Respiratory Rate - Anes 13 br/min ROXANA CLARK MD [facility] 10-13-2023 09:27-0500 Body height 162.6 cm ROXANA CLARK MD [facility] 10-13-2023 09:27-0500 Body temperature 97.34 [degF] ROXANA CLARK MD [facility] 10-13-2023 09:27-0500 Body weight 49.5 kg ROXANA CLARK MD [facility] 10-13-2023 09:27-0500 Heart rate 58 /min ROXANA CLARK MD [facility] 10-04-2023 14:49-0500 Body temperature 97.3 [degF] Mariana Acuña FINISHED HARDWARE ERECTOR - [employer] Work Phone: [facility] 10-04-2023 14:49-0500 Diastolic blood pressure 74 mm[Hg] Mariana Acuña FINISHED HARDWARE ERECTOR - [employer]ER Work Phone: [facility] 10-04-2023 14:49-0500 Heart rate 64 /min Mariana Acuña FINISHED HARDWARE ERECTOR - [employer]ER Work Phone: [facility] 10-04-2023 14:49-0500 Systolic blood pressure 120 mm[Hg] Mariana Acuña FINISHED HARDWARE ERECTOR - [employer]ER Work Phone: [facility] 08-17-2023 08:42-0500 Body temperature 98.1 [degF] Mariana Acuña FINISHED HARDWARE ERECTOR - [employer] Work Phone: [facility] [employer] 08-17-2023 08:42-0500 Diastolic blood pressure 82 mm[Hg] Mariana Acuña FINISHED HARDWARE ERECTOR - [employer] Work Phone: [facility] [employer] 08-17-2023 08:42-0500 Heart rate 68 /min Mariana Acuña FINISHED HARDWARE ERECTOR - [employer] Work Phone: [facility] [employer] 08-17-2023 08:42-0500 Systolic blood pressure 113 mm[Hg] Mariana Acuña FINISHED HARDWARE ERECTOR - [employer] Work Phone: [facility] [employer] 06-25-2023 09:57-0400 Body temperature 97.2 [degF] Mariana Acuña FINISHED HARDWARE ERECTOR - [employer]ER Work Phone: [facility] [employer] 06-25-2023 09:57-0400 Diastolic blood pressure 86 mm[Hg] Mariana Acuña FINISHED HARDWARE ERECTOR - [employer]ER Work Phone: [facility] [employer] 06-25-2023 09:57-0400 Heart rate 86 /min Mariana Acuña FINISHED HARDWARE ERECTOR - [employer] Work Phone: [facility] [employer] 06-25-2023 09:57-0400 Systolic blood pressure 133 mm[Hg] Mariana Acuña FINISHED HARDWARE ERECTOR - [employer] Work Phone: [facility] [employer] 05-17-2023 11:43-0400 Body height 162.6 cm Mariana Acuña FINISHED HARDWARE ERECTOR - [employer] Work Phone: [facility] [employer] 05-17-2023 11:43-0400 Body mass index (BMI) [Ratio] 21.8 kg/m2 Mariana Acuña FINISHED HARDWARE ERECTOR - [employer] Work Phone: [facility] [employer] 05-17-2023 11:43-0400 Body temperature 97.81 [degF] Mariana Acuña FINISHED HARDWARE ERECTOR - [employer] Work Phone: [facility] [employer] 05-17-2023 11:43-0400 Body weight 57.61 kg Mariana Acuña FINISHED HARDWARE ERECTOR - [employer] Work Phone: [facility] [employer] 05-17-2023 11:43-0400 Diastolic blood pressure 80 mm[Hg] Mariana Acuña FINISHED HARDWARE ERECTOR - [employer] Work Phone: [facility] [employer] 05-17-2023 11:43-0400 Heart rate 64 /min Mariana Acuña FINISHED HARDWARE ERECTOR - [employer] Work Phone: [facility] [employer] 05-17-2023 11:43-0400 Systolic blood pressure 120 mm[Hg] Mariana Acuña FINISHED HARDWARE ERECTOR - [employer] Work Phone: [facility] [employer] 03-31-2023 13:57-0400 Body height 162.6 cm Mariana Acuña FINISHED HARDWARE ERECTOR - [employer] Work Phone: [facility] [employer] 03-31-2023 13:57-0400 Body mass index (BMI) [Ratio] 21.8 kg/m2 Mariana Acuña FINISHED HARDWARE ERECTOR - [employer] Work Phone: [facility] [employer] 03-31-2023 13:57-0400 Body weight 57.61 kg Mariana Acuña FINISHED HARDWARE ERECTOR - [employer] Work Phone: [facility] [employer] 03-31-2023 13:57-0400 Diastolic blood pressure 88 mm[Hg] Mariana Acuña FINISHED HARDWARE ERECTOR - [employer] Work Phone: [facility] [employer] 03-31-2023 13:57-0400 Heart rate 90 /min Mariana Acuña FINISHED HARDWARE ERECTOR - [employer] Work Phone: [facility] [employer] 03-31-2023 13:57-0400 Systolic blood pressure 130 mm[Hg] Mariana Acuña FINISHED HARDWARE ERECTOR - [employer] Work Phone: [facility] [employer] 02-10-2023 13:02-0400 Body height 162.6 cm Mariana Acuña FINISHED HARDWARE ERECTOR - [employer] Work Phone: [facility] [employer] 02-10-2023 13:02-0400 Body mass index (BMI) [Ratio] 21.8 kg/m2 Mariana Acuña FINISHED HARDWARE ERECTOR - [employer] Work Phone: [facility] [employer] 02-10-2023 13:02-0400 Body temperature 98.29 [degF] Mariana Acuña FINISHED HARDWARE ERECTOR - [employer] Work Phone: [facility] [employer] 02-10-2023 13:02-0400 Body weight 57.61 kg Mariana Acuña FINISHED HARDWARE ERECTOR - [employer] Work Phone: [facility] [employer] 02-10-2023 13:02-0400 Diastolic blood pressure 72 mm[Hg] Mariana Acuña FINISHED HARDWARE ERECTOR - [employer]ER Work Phone: [facility] [employer] 02-10-2023 13:02-0400 Heart rate 61 /min Mariana Acuña FINISHED HARDWARE ERECTOR - [employer]ER Work Phone: [facility] [employer] 02-10-2023 13:02-0400 Systolic blood pressure 118 mm[Hg] Mariana Acuña FINISHED HARDWARE ERECTOR - [employer] Work Phone: [facility] [employer] 11-04-2022 14:59-0400 Body height 162.6 cm Mariana Acuña FINISHED HARDWARE ERECTOR - [employer] Work Phone: [facility] [employer] 11-04-2022 14:59-0400 Body mass index (BMI) [Ratio] 21.9 kg/m2 Mariana Acuña FINISHED HARDWARE ERECTOR - [employer] Work Phone: [facility] [employer] 11-04-2022 14:59-0400 Body temperature 96.8 [degF] Mariana Acuña FINISHED HARDWARE ERECTOR - [employer] Work Phone: [facility] [employer] 11-04-2022 14:59-0400 Body weight 57.88 kg Mariana Acuña FINISHED HARDWARE ERECTOR - [employer]ER Work Phone: [facility] [employer] 11-04-2022 14:59-0400 Diastolic blood pressure 72 mm[Hg] Mariana Acuña FINISHED HARDWARE ERECTOR - [employer] Work Phone: [facility] [employer] 11-04-2022 14:59-0400 Heart rate 70 /min Mariana Acuña FINISHED HARDWARE ERECTOR - [employer] Work Phone: [facility] [employer] 11-04-2022 14:59-0400 Systolic blood pressure 113 mm[Hg] Mariana Acuña FINISHED HARDWARE ERECTOR - [employer] ST[employer]ER Work Phone: [facility] Encounters Encounter Date Encounter Type Care Provider Facility Start: 06-27-2025 End: 06-27-2025 ambulatory Mark Shabazz Facility:[facility] Start: 05-30-2025 End: 05-30-[address] Mirna Gunderson DC -[facility] Work Phone: Start: 05-30-2025 End: 05-30-[address] Mark Shabazz MD Work Phone: -[facility] Start: 05-28-2025 End: 05-28-2025 ambulatory MARIANAJOHN ACUÑA [facility] Start: 05-28-2025 End: 05-28-2025 Patient encounter procedure Mariana Acuña FINISHED HARDWARE ERECTOR - [employer]ER Work Phone: [facility] Comment on above: Intractable chronic migraine without aura and without status migrainosus (Primary Dx); Myofascial pain Start: 05-14-2025 End: 05-14-[address] Mirna Gunderson DC -[facility] Work Phone: Start: 05-14-2025 End: 05-14-[address] Mark Shabazz MD Work Phone: -[facility] Start: 05-04-2025 Registered [employer] HE[employer] RIS K ASSESSMENT -Employee Health Start: 05-04-2025 End: 05-04-[address] Mark Shabazz MD Work Phone: -Laboratory Start: 05-04-2025 End: 05-04-[address] Mark Shabazz MD -Laboratory Work Phone: Start: 05-04-2025 End: 05-04-2025 ambulatory Mark Shabazz Facility:[facility] Start: 04-30-2025 End: 04-30-[address] Mirna Gunderson DC -[facility] Work Phone: Start: 04-30-2025 End: 04-30-[address] Mark Shabazz MD Work Phone: [facility] Start: 04-24-2025 End: 04-24-[address] Mirna Gunderson DC -[facility] Work Phone: Start: 04-24-2025 End: 04-24-[address] Mark Shabazz MD Work Phone: [facility] Start: 04-16-2025 End: 04-16-[address] Mirna Gunderson DC -[facility] Work Phone: Start: 04-16-2025 End: 04-16-[address] Mark Shabazz MD Work Phone: [facility] Start: 04-16-2025 End: 04-16-2025 ambulatory [facility] Start: 04-16-2025 End: 04-16-2025 Office outpatient visit [address] [facility] FINISHED HARDWARE ERECTOR - [employer] STAINER Work Phone: [facility] Comment on above: Intractable chronic migraine without aura and without status migrainosus (Primary Dx); Myofascial pain Start: 04-03-2025 End: 04-03-[address] Mir[facility] Gunderson [facility] Work Phone: Start: 04-03-2025 End: 04-03-[address] Mark Shabazz MD Work Phone: [facility] Start: 03-29-2025 End: 03-29-[address] Mirna Gunderson DC -[facility] Work Phone: Start: 03-29-2025 End: 03-29-[address] Mark Shabazz MD Work Phone: [facility] Start: 03-22-2025 End: 03-22-[address] Mirna Gunderson DC -[facility] Work Phone: Start: 03-22-2025 End: 03-22-[address] Mark Shabazz MD Work Phone: -[facility] Start: 03-15-2025 End: 03-15-[address] Mirna Gunderson DC -[facility] Work Phone: Start: 03-15-2025 End: 03-15-[address] 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 Mirna Gunderson DC -[facility] Work Phone: Start: 02-22-2025 End: 02-22-[address] Mark Shabazz MD Work Phone: -[facility] Start: 02-21-2025 End: 02-21-[address] Mark Shabazz MD Work Phone: -Laboratory Start: 02-21-2025 End: 02-21-2025 Patient encounter procedure Unruly Toscano DO -Laboratory Work Phone: Start: 02-20-2025 End: 02-20-2025 Patient encounter procedure Unruly Toscano DO -[facility] Work Phone: Start: 02-20-2025 End: 02-21-[address] Mark Shabazz MD Work Phone: -[facility] Start: 02-06-2025 End: 02-06-[address] Mirna Gunderson DC -[facility] Work Phone: Start: 02-06-2025 End: 02-06-[address] Mark Shabazz MD Work Phone: [facility] Work Phone: Start: 02-06-2025 End: 02-06-[address] Mark Shabazz MD Work Phone: [facility] Work Phone: Start: 02-06-2025 End: 02-06-2025 Patient encounter procedure Unruly Toscano DO -Nuclear Medicine [facility] Work Phone: Start: 02-06-2025 End: 02-06-2025 ambulatory Mark Shabazz Facility:[facility] Start: 01-29-2025 End: 01-29-[address] Mirna Gunderson DC -[facility] Work Phone: Start: 01-29-2025 End: 01-29-[address] Mark Shabazz MD Work Phone: [facility] Work Phone: Start: 01-23-2025 End: 01-23-[address] Mirna Gunderson DC -[facility] Work Phone: Start: 01-23-2025 End: 01-23-[address] Mark Shabazz MD Work Phone: [facility] Work Phone: Start: 01-23-2025 End: 01-23-2025 Office outpatient visit 15 minutes Mariana Acuña APRN - [employer] Work Phone: [facility] Comment on above: Intractable chronic migraine without aura and without status migrainosus (Primary Dx); Myofascial pain Start: 01-23-2025 End: 01-23-2025 ambulatory MARIANA DOMENICO [facility] Start: 01-19-2025 End: 01-19-2025 Admission to same day surgery center Dr. Diann Perez MD -[facility] Start: 01-19-2025 End: 01-19-[address] Mark Shabazz MD Work Phone: [facility] Work Phone: Start: 01-19-2025 Non-patient / Non-visit Dr. Diann Perez MD -[facility] Start: 01-09-2025 End: 01-09-[address] Mirna Gunderson DC -[facility] Work Phone: Start: 01-09-2025 End: 01-09-[address] Mark Shabazz MD Work Phone: [facility] Work Phone: Start: 01-09-2025 End: 01-09-2025 ambulatory [facility] Facility:[facility] Start: 01-03-2025 End: 01-03-2025 Patient encounter procedure Unruly Toscano DO -[facility] Work Phone: Start: 01-03-2025 End: 01-03-2025 ambulatory [facility] Facility:[facility] Start: 12-25-2024 End: 12-25-[address] Diann Perez MD -[facility] Work Phone: Start: 12-25-2024 End: 12-25-2024 ambulatory Diann Perez Facility:[facility] Start: 12-12-2024 End: 12-12-2024 Patient encounter procedure Mariana Jarbidge FINISHED HARDWARE ERECTOR - [employer] Work Phone: [facility] Neurology [facility] Comment on above: Intractable chronic migraine without aura and without status migrainosus (Primary Dx); Myofascial pain Start: 12-12-2024 End: 12-12-2024 ambulatory MARIANA ACUÑA [facility] Start: 11-28-2024 End: 11-28-[address] Mark Shabazz MD Work Phone: [facility] Work Phone: Start: 11-28-2024 End: 11-28-[address] Diann Perez MD -MRI - [facility] Work Phone: Start: 11-28-2024 End: 11-28-2024 ambulatory [facility] Facility:[facility] Start: 11-22-2024 End: 11-22-[address] Diann Perez MD -[facility] Work Phone: Start: 11-22-2024 End: 11-22-2024 ambulatory [facility] Facility:[facility] Start: 11-14-2024 End: 11-14-[address] Mark Shabazz MD Work Phone: [facility] Work Phone: Start: 11-14-2024 End: 11-14-2024 Patient encounter procedure Maryjane STEVENSON -Outpatient Breast Imaging Work Phone: Start: 11-14-2024 End: 11-14-2024 ambulatory Mark Shabazz Facility:[facility] Start: 11-01-2024 End: 11-01-2024 Patient encounter procedure Mariana Cortez BUSINESS PROCESS COORDINATOR-C -[facility] Work Phone: Start: 11-01-2024 End: 11-01-[address] Mark Shabazz MD Work Phone: [facility] Work Phone: Start: 10-31-2024 End: 10-31-2024 Office outpatient visit 15 minutes Mariana Acuña APRN - [employer] Work Phone: [facility] Neurology [facility] Comment on above: Intractable chronic migraine without aura and without status migrainosus (Primary Dx); Myofascial pain Start: 10-31-2024 End: 11-01-2024 ambulatory MARIANA ACUÑA [facility] Start: 09-19-2024 End: 09-19-2024 ambulatory MARIANA ACUÑA [facility] Start: 09-19-2024 End: 09-19-2024 Patient encounter procedure Mariana Acuña FINISHED HARDWARE ERECTOR - [employer] Work Phone: [facility] Comment on above: Intractable chronic migraine without aura and without status migrainosus (Primary Dx); Myofascial pain Start: 08-17-2024 End: 09-19-2024 Telephone encounter Mariana Acuña FINISHED HARDWARE ERECTOR - [employer] Work Phone: [facility] Comment on above: Procedure (Botox ) Start: 08-15-2024 End: 08-15-2024 Patient encounter procedure Jayla Farnsworth BUSINESS PROCESS COORDINATOR-C -Laboratory, Specimen Work Phone: Start: 08-15-2024 End: 08-15-2024 ambulatory Jayla Farnsworth Facility:[facility] Start: 06-29-2024 End: 06-29-2024 Office outpatient visit 15 minutes Mariana Acuña FINISHED HARDWARE ERECTOR - [employer] Work Phone: [facility] Comment on above: Myofascial pain (Liss nikolay Dx); Intractable chronic migraine without aura and without status migrainosus Start: 06-29-2024 End: 07-28-2024 ambulatory [facility]inal[facility] Start: 06-29-2024 End: 07-28-2024 Patient encounter procedure Kiera Rinaldi [facility] Start: 06-05-2024 End: 06-05-2024 ambulatory MARIANA ACUÑA [facility] Start: 06-05-2024 End: 06-05-2024 Patient encounter procedure Mariana Acuña FINISHED HARDWARE ERECTOR - [employer] Work Phone: [facility] Comment on above: Intractable chronic migraine without aura and without status migrainosus (Primary Dx) Start: 05-12-2024 End: 05-12-2024 Refill Wendi Starks PharmD [facility] Comment on above: Intractable chronic migraine without aura and without status migrainosus (Primary Dx) Start: 04-13-2024 End: 04-14-2024 Telephone encounter Mariana Domenico GUTHRIE - BRUSH STAINER Work Phone: [facility] Clinical Communication Comment on above: Other (r/s Botox hanane t (new insurance)) Start: 02-16-2024 End: 02-16-2024 Patient encounter procedure Mariana Domenico FINISHED HARDWARE ERECTOR - BRUSH STAINER Work Phone: [facility] Comment on above: Intractable chronic migraine without aura and without status migrainosus (Primary Dx); Myofascial pain Start: 01-18-2024 ambulatory TRUDI MURGUIA MD Facil ity:B Start: 01-04-2024 End: 01-04-2024 Office outpatient visit 15 minutes Marianajohn Acuña APRN - BRUSH STAINER Work Phone: [facility] Comment on above: Myofascial pain (Liss nikolay Dx); Chronic migraine without aura, intractable, without status migrainosus Start: 12-31-2023 ambulatory TRUDI MURGUIA MD Facil ity:B Start: 11-23-2023 End: 11-23-2023 Patient encounter procedure Mariana Domenico FINISHED HARDWARE ERECTOR - BRUSH STAINER Work Phone: [facility] Comment on above: Chronic migraine wit hout aura, intractable, without status migrainosus (Primary Dx) Start: 11-16-2023 End: 11-17-2023 ambulatory ROXANA CLARK MD Facility:A Start: 11-16-2023 End: 11-16-2023 Patient encounter procedure ROXANA CLARK MD [facility] Start: 10-14-2023 Refill Mariana Acuña APRN - BRUSH STAINER Work Phone: [facility] Start: 10-13-2023 End: 10-13-2023 ambulatory TYRA SONI MD Facility:A Start: 10-13-2023 End: 10-13-2023 SAME DAY STAY ROXANA CLARK MD [facility] Start: 10-04-2023 End: 10-04-2023 Office outpatient visit 10 minutes Marianajohn Acuña FINISHED HARDWARE ERECTOR - BRUSH STAINER Work Phone: [facility] Comment on above: Chronic migraine wit hout aura, intractable, without status migrainosus (Primary Dx) Start: 09-24-2023 End: 09-25-2023 ambulatory ROXANA CLARK MD Facility:A Start: 09-23-2023 End: 09-24-2023 ambulatory ELIAN NESBITT MD Facility:B Start: 09-23-2023 End: 09-24-2023 Patient encounter procedure ELIAN NESBITT MD [facility] Start: 08-24-2023 Telephone encounter Mariana Bonnie doll FINISHED HARDWARE ERECTOR - BRUSH STAINER Work Phone: [facility] Comment on above: Med Management (Rx. Nurtec) Start: 08-17-2023 End: 08-22-[address] MARK SHABAZZ MD Facility:B Start: 08-17-2023 End: 08-21-2023 Outreach Lab JOVANNI KOWALSKI NP [facility] Start: 08-17-2023 Telephone encounter Mariana Bonnie doll FINISHED HARDWARE ERECTOR - BRUSH STAINER Work Phone: [facility] Comment on above: Medication Problem Start: 08-17-2023 End: 08-17-2023 Patient encounter procedure Mariana Acuña FINISHED HARDWARE ERECTOR - BRUSH STAINER Work Phone: [facility] Comment on above: Chronic migraine wit hout aura, intractable, without status migrainosus (Primary Dx) Start: 08-12-2023 End: 08-13-[address] MARK SHABAZZ MD Facility:B Start: 08-05-2023 End: 08-06-2023 ambulatory ELIAN NESBITT MD Facility:B Start: 08-05-2023 End: 08-06-2023 ambulatory TRUDI MURGUIA MD Facility:B Start: 08-05-2023 End: 08-05-2023 Patient encounter procedure ELIAN NESBITT MD [facility] Start: 08-05-2023 End: 08-05-2023 Patient encounter procedure TRUDI MURGUIA MD [facility] Start: 07-28-2023 Telephone encounter Veronique Nemaha Alicia [facility] Comment on above: Other Start: 06-25-2023 End: 06-25-2023 Office outpatient visit 10 minutes Mariana Acuña FINISHED HARDWARE ERECTOR - BRUSH STAINER Work Phone: [facility] Comment on above: Chronic migraine wit hout aura, intractable, without status migrainosus (Primary Dx) Start: 05-17-2023 End: 05-17-2023 Patient encounter procedure Mariana Acuña FINISHED HARDWARE ERECTOR - BRUSH STAINER Work Phone: [facility] Comment on above: Chronic migraine wit hout aura, intractable, without status migrainosus (Primary Dx) Start: 03-31-2023 End: 03-31-2023 Office outpatient visit 10 minutes Mariana Acuña FINISHED HARDWARE ERECTOR - BRUSH STAINER Work Phone: [facility] Comment on above: Chronic migraine wit hout aura, intractable, without status migrainosus (Primary Dx) Start: 03-04-2023 End: 03-05-[address] MARK SHABAZZ MD Facility:B Start: 03-04-2023 End: 03-04-[address] MARK SHABAZZ MD [facility] Start: 03-01-2023 End: 03-02-2023 ambulatory JORDAN GUILLEN MD Facility:B Start: 03-01-2023 End: 03-01-2023 Patient encounter procedure JORDAN GUILLEN MD [facility] Start: 02-25-2023 Telephone encounter Mariana doll FINISHED HARDWARE ERECTOR - BRUSH STAINER Work Phone: [facility] Comment on above: insurance Start: 02-10-2023 End: 02-10-2023 Patient encounter procedure Mariana Acuña FINISHED HARDWARE ERECTOR - BRUSH STAINER Work Phone: [facility] Comment on above: Chronic migraine wit hout aura, intractable, without status migrainosus (Primary Dx) Start: 01-27-2023 Refill Mariana Acuña FINISHED HARDWARE ERECTOR - BRUSH STAINER Work Phone: [facility] Start: 01-15-2023 End: 01-15-2023 ambulatory [facility] Start: 01-15-2023 Encounter for genera l adult medical examination without abnormal findings [facility] Start: 11-26-2022 End: 11-26-2022 Patient encounter procedure Y WO ID REFERRING [facility] Start: 11-04-2022 End: 11-04-2022 Patient encounter procedure Mariana Acuña FINISHED HARDWARE ERECTOR - BRUSH STAINER Work Phone: [facility] Comment on above: Chronic migraine wit hout aura, intractable, without status migrainosus (Primary Dx) Start: 01-28-2022 End: 01-28-2022 Patient encounter procedure [facility] Procedures Date Procedure Procedure Detail Performing Clinician Start: 05-28-2025 Adult depression screening assessment Mariana Weaversey FINISHED HARDWARE ERECTOR - BRUSH STAINER Work Phone: Start: 05-04-2025 Serum inorganic phosphate measurement Dr. Mark Shabazz MD Work Phone: Start: 02-21-2025 Fol[address]le stimulating hormone measurement Dr. Mark Shabazz MD Work Phone: Comment on above: FEMALE:Follicular: 1.4 - 18.1 mIU/mLMidc ycle: 3.4 - 33.4 mIU/mLLuteal: 1.5 - 9.1 mIU/mLPost Menopause: 23.0 - 116.3 mIU/mLMALE: 1.4 - 18.1 mIU/mL Start: 02-21-[address] Mark Shabazz MD Work Phone: Comment on above: Test Ordered: [id number] Rumas Syndr ome PanelTest(s) 367229-[id number] developed and its performance characteristicsdetermined by [facility]. It has not been cleared or approvedby the Food and Drug Administration.Result Comment [facility] Reference Range: .PDF report to be sent separatelyPerformed at: [facility] Medical Neurogenetic [id number], [place], [place] [id number] Director: Qian Dunn PhD, Phone: [phone] at: [facility] [employer] [id number] Director: Thai James PhD, Phone: [phone] Start: 02-21-[address] Matt Shabazz MD Work Phone: Comment on above: Follicular phase 0.1 - 0.9 Luteal phase 1.8 - 23.9 Ovulation phase 0.1 - 12.0 First trimester 11.0 - 44.3 Second trimester 25.4 - 83.3 Third trimester 58.7 - 214.0 Postmenopausal 0.0 - 0.1Performed at: [address] [id number] Director: Luis Barnett MD, Phone: [phone] at: [facility] [employer] [id number] Director: Thai James PhD, Phone: [phone] Start: 02-06-2025 Radionuclide study of abdomen Dr. [...] for Adults (1 - 1-dose 75+ series) [facility] Start: 2041 RSV Immunization age d 60 or older (1 - 1-dose 60+ series) RSV Immunization aged 60 or older (1 - 1-dose 60+ series) [facility] Start: 2031 Zoster Vaccines (1 of 2) Zoste r Vaccines (1 of 2) [facility] Start: 04-19-2027 DTaP/Tdap/Td Vaccine s (4 - Td or Tdap) DTaP/Tdap/Td Vaccines (4 - Td or Tdap) [facility] Start: 05-28-2026 Depression Screening Depression Scre ening [facility] Start: 11-14-2025 Screening for malign ant neoplasm of breast Mammogram [facility] Start: 08-20-2025 End: 08-20-2025 Patient encounter procedure 08/20/2025 11:00 AM EST Procedure Visit [address] [place] [phone] Mariana Acuña, FINISHED HARDWARE ERECTOR - BRUSH STAINER [address] [place] [address] [facility] Start: 07-09-2025 End: 07-09-2025 Patient encounter procedure 07/09/2025 8:30 AM EST Procedure Visit [address] [place] [address] Mariana Acuña, FINISHED HARDWARE ERECTOR - BRUSH STAINER [address] [place] [address] [facility] Start: 05-28-2025 End: 05-28-2025 Patient encounter procedure 05/28/2025 10:00 AM EDT Procedure Visit [address] [place] [address] Mariana Acuña APRN - BRUSH STAINER [address] [place] [address] [place] [address] [facility] Start: 04-23-2025 COVID-19 Vaccine ( season) COVID-19 Vaccine () [facility] Start: 04-23-2025 Influenza vaccination [facility] Start: 04-16-2025 End: 04-16-2025 Patient encounter procedure 04/16/2025 10:30 AM EDT Procedure Visit [address] [place] [address] Mariana Acuña APRN - SUDHAKAR [address] [place] [address] [place] [address] [facility] Start: 03-06-2025 End: 03-06-2025 Patient encounter procedure 03/06/2025 10:00 AM EDT Procedure Visit [address] [place] [address] Mariana Acuña APRN - SUDHAKAR [address] [place] [address] [place] [address] [facility] Start: 02-21-2025 Catecholamines [Moles/volume] in Plasma [facility] Start: 02-21-2025 Cyclic citrullinated peptide IgG Ab [Units/volume] in Serum or Plasma [facility] Start: 02-21-2025 Estrogen [Mass/volum e] in Serum or Plasma [facility] Start: 02-21-2025 Gastrin [Mass/volume ] in Serum or Plasma [facility] Start: 02-21-2025 Procedure [facility] Start: 02-21-2025 Serum progesterone measurement [facility] Start: 02-21-2025 Testosterone measurement [facility] Start: 02-21-2025 Vitamin D, 1,25-dihydroxy measurement [facility] Start: 01-23-2025 End: 01-23-2025 Patient encounter procedure 01/23/2025 10:00 AM EDT Office Visit [address] Arvin [facility] [place] [address] Mariana Acuña APRN - BRUSH STAINER [address] [place] [address] [place] [address] [facility] Start: 01-19-2025 Anes integ extremiti es ant trunk & perineum nos ANESTH SKIN EXT/PER/ATRUNK [facility] Start: 01-19-2025 Exc breast les preop plmt rad marker open 1 les EXCISION BREAST LESION [facility] Start: 01-19-2025 Patient discharge [facility] Start: 01-09-2025 X-ray of cervical spine Cerv S pine 2 or 3 Views [facility] Start: 01-09-2025 X-ray of lumbosacral spine L/S Spine Min 4 Views [facility] Start: 01-09-2025 XR Cervical spine 2 or 3 Views [facility] Start: 01-09-2025 XR Spine Lumbar and Sacrum GE 4 Views [facility] Start: 01-03-2025 Following clinical pathway protocol [facility] Start: 12-12-2024 End: 12-12-2024 Patient encounter procedure 12/12/2024 10:00 AM EDT Procedure Visit [address] Arvin Schneider [facility] [place] [phone] Mariana Acuña, FINISHED HARDWARE ERECTOR - BRUSH STAINER [address] [place] [address] [place] [address] [facility] Start: 10-31-2024 End: 10-31-2024 Patient encounter procedure 10/31/2024 9:30 AM EDT Procedure Visit [address] [place] [address] Mariana Acuña, FINISHED HARDWARE ERECTOR - BRUSH STAINER [address] [place] [address] [place] [address] [facility] Start: 09-05-2024 End: 09-05-2024 Patient encounter procedure 09/05/2024 1:30 PM EST Procedure Visit [address] [place] [address] Mariana Acuña, FINISHED HARDWARE ERECTOR - BRUSH STAINER [address] [place] [address] [place] [address] [facility] Start: 08-31-2024 End: 08-31-2024 Patient encounter procedure 08/31/2024 11:30 AM EST Procedure Visit [address] [place] [address] Mariana Acuña, FINISHED HARDWARE ERECTOR - BRUSH STAINER [address] [place] [address] [place] [address] [facility] Start: 06-29-2024 End: 06-29-2024 Patient encounter procedure 06/29/2024 2:30 PM EST Procedure Visit [address] [place] [address] Mariana Acuña, FINISHED HARDWARE ERECTOR - BRUSH STAINER [address] [place] [address] [place] [address] [facility] Start: 05-17-2024 End: 05-17-2024 Patient encounter procedure 05/17/2024 3:00 PM EDT Procedure Visit [facility] [address] [place] [address] Mariana Acuña APRN - BRUSH STAINER [address] [place] [address] [facility] Start: 04-23-2024 COVID-19 Vaccine ( season) COVID-19 Vaccine () [facility] Start: 04-23-2024 COVID-19 Vaccine () COVID-19 Vaccine () [facility] Start: 04-23-2024 Influenza vaccination [facility] Start: 03-29-2024 End: 03-29-2024 Patient encounter procedure [facility] Start: 02-16-2024 End: 02-16-2024 Patient encounter procedure 02/16/2024 9:00 AM EDT Procedure Visit [facility] [address] [place] [address] Mariana Acuña APRN - BRUSH STAINER [address] [place] [address] [facility] Start: 01-04-2024 End: 01-04-2024 Patient encounter procedure 01/04/2024 3:15 PM EDT Procedure Visit [facility] [address] [place] [address] Mariana Acuña APRN - BRUSH STAINER [address] [place] [address] [facility] Start: 11-23-2023 End: 11-23-2023 Patient encounter procedure 11/23/2023 1:30 PM EDT Procedure Visit [facility] [address] [place] [address] Mariana Acuña, FINISHED HARDWARE ERECTOR - BRUSH STAINER [address] [place] [address] [facility] Start: 10-04-2023 End: 10-04-2023 Patient encounter procedure 10/04/2023 3:00 PM EST Procedure Visit [facility] [address] [place] [address] Mariana Acuña, FINISHED HARDWARE ERECTOR - BRUSH STAINER [address] [place] [address] [facility] Start: 08-18-2023 End: 08-18-2023 Patient encounter procedure 08/18/2023 2:00 PM EST Procedure Visit [facility] [address] [place] [address] Mariana Acuña, FINISHED HARDWARE ERECTOR - BRUSH STAINER [address] [place] [address] [facility] Start: 08-17-2023 End: 08-17-2023 Patient encounter procedure 08/17/2023 11:30 AM EST Procedure Visit [facility] [address] [place] [address] Mariana Acuña FINISHED HARDWARE ERECTOR - BRUSH STAINER [address] [place] [address] [facility] Start: 06-25-2023 End: 06-25-2023 Patient encounter procedure 06/25/2023 10:00 AM EDT Procedure Visit [facility] [address] [place] [address] Mariana Acuña FINISHED HARDWARE ERECTOR - BRUSH STAINER [address] [place] [address] [facility] Start: 05-17-2023 End: 05-17-2023 Patient encounter procedure [facility] Start: 05-14-2023 End: 05-14-2023 Patient encounter procedure 05/14/2023 1:00 PM EDT Procedure Visit [facility] [address] [place] [address] Mariana Acuña, FINISHED HARDWARE ERECTOR - BRUSH STAINER [address] [place] [address] [facility] Start: 04-23-2023 COVID-19 Vaccine ( season) COVID-19 Vaccine () [facility] Start: 04-23-2023 Influenza vaccination [facility] Start: 03-24-2023 End: 03-24-2023 Patient encounter procedure 03/24/2023 2:30 PM EDT Procedure Visit [facility] [address] [place] [address] Mariana Acuña, FINISHED HARDWARE ERECTOR - BRUSH STAINER [address] [place] [address] [facility] Start: 03-23-2023 End: 03-23-2023 Patient encounter procedure [facility] Start: 02-10-2023 End: 02-11-2024 MR Brain WO contrast MR brain wo contrast Imaging Routine Chronic migraine without aura, intractable, without status migrainosus Expected: 02/10/2023, Expires: 02/11/2024 [facility] Work Phone: Comment on above: Expected: 02/10/2023 , Expires: 02/11/2024 Start: 02-10-2023 End: 02-10-2023 Patient encounter procedure [facility] Start: 04-23-2022 Influenza vaccination Influenza Vacc ine (#1) [facility] Start: 09-18-2021 COVID-19 Vaccine (2 - Booster for Julian series) COVID-19 Vaccine (2 - Booster for Julian series) [facility] Start: 2021 Screening for malign ant neoplasm of breast Mammogram [facility] Start: 01-07-2007 Hepatitis B Vaccines (2 of 3 - 19+ 3-dose series) Hepatitis B Vaccines (2 of 3 - 19+ 3-dose series) [facility] Start: 01-07-2007 Hepatitis B Vaccines (2 of 3 - 3-dose series) Hepatitis B Vaccines (2 of 3 - 3-dose series) [facility] Start: 1999 Diabetes mellitus screening Diabetes Screening [facility] Start: 1999 Hepatitis C screening Hepatitis C Sc reening [facility] Start: 1994 Varicella vaccination Varicell a Vaccines (1 of 2 - 13+ 2-dose series) [facility] Start: 1993 Depression Screening Depression Scre ening [facility] Start: 1982 MMR Vaccines (1 of 1 - Standard series) MMR Vaccines (1 of 1 - Standard series) [facility] Start: 1982 Varicella vaccination Varicell a Vaccines (1 of 2 - 2-dose childhood series) [facility] Start: 1981 HIV screening HIV Screening [facility] Start: 1981 Thyroid stimulating hormone measurement TSH Level [facility] C reactive protein [Mass/volume] in Serum or Plasma [facility] Catecholamines [Moles/volume] in Plasma [facility] Chiropractic manipulation [facility] Cobalamin (Vitamin B 12) [Mass/volume] in Serum or Plasma [facility] Cortisol [Mass/volum e] in Serum or Plasma [facility] Cyclic citrullinated peptide IgG Ab [Units/volume] in Serum or Plasma [facility] DOPamine [Mass/volum e] in Serum or Plasma [facility] EPINEPHrine [Mass/volume] in Plasma [facility] Erythrocyte sedimentation rate [facility] Estrogen [Mass/volum e] in Serum or Plasma [facility] Folate [Moles/volume ] in Serum or Plasma [facility] Follitropin and Lutr opin panel [Units/volume] - Serum or Plasma [facility] Gastrin [Mass/volume ] in Serum or Plasma [facility] MG Breast - bilatera l Diagnostic [facility] Patient referral [facility] Work Phone: Plasma norepinephrin e measurement [facility] Procedure [facility] Rheumatoid factor [Presence] in Serum [facility] Rheumatoid factor [Presence] in Serum [facility] Serum progesterone measurement [facility] Serum testosterone measurement [facility] Testosterone Free [Mass/volume] in Serum or Plasma [facility] Testosterone measurement [facility] US Breast limited [facility] Vitamin D, 1,25-dihydroxy measurement [facility] Immunizations Immunization Date Immunization Notes Care Provider Fa cility 07-24-2021 Julian SARS-CoV-2 Vaccination Mariana Jarbidge FINISHED HARDWARE ERECTOR - BRUSH STAINER Work Phone: [facility] 07-01-2021 influenza virus vaccine, unspecified formulation [facility] FINISHED HARDWARE ERECTOR - BRUSH STAINER Work Phone: [facility] 06-27-2018 influenza, injectabl e, quadrivalent, preservative free Dr. Mark Shabazz MD Work Phone: [facility] 06-27-2018 influenza, seasonal, injectable [facility] Work Phone: 08-23-2016 tetanus toxoid, reduced diphtheria toxoid, and acellular pertussis vaccine, adsorbed ELIAN NESBITT MD [facility] Payers Date Payer Category Payer Self-pay [id number] 2024 Commercial Managed C are - HMO [id number] 2024 Private Health Insurance [employer] [id number] 2024-Present [phone] [address] [address] [place] [address] Commercial [id number] 2024 Unknown [id number] 2023 Unknown [id number] 2023 Unknown [id number] 2021 Unknown [employer] [id number] 2021-Present [address] [facility] [place] [address] Commercial [id number] 2016 Unknown [id number] 1981 Unknown [id number] 2.16.840.1.850343.3.579.2. 1981 Unknown [id number] 2.16.840.1.916235.3.579.2. 1981 Unknown [id number] 2.16.840.1.113704.3.579.2. 1981 Unknown [id number] 2.16.840.1.175966.3.579.2. 1981 Unknown [id number] 2.16.840.1.257734.3.579.2. 1981 Unknown [id number] 2.16.840.1.212000.3.579.2. 1981 Unknown [id number] 2.16.840.1.872465.3.579.2. 1981 Unknown [id number] 2.16.840.1.497953.3.579.2. 1981 Unknown [id number] 2.16.840.1.969287.3.579.2. 1981 Unknown [id number] 2.16.840.1.021219.3.579.2. 1981 Unknown [id number] 2.16.840.1.685764.3.579.2. 1981 Unknown [id number] 2.16.840.1.550124.3.579.2. 627 Unknown [facility] [id number] Unknown [id number] 2.16.840.1.334518.3.579.2. 462 Unknown [id number] 2.16.840.1.417489.3.579.2. 462 Unknown [id number] 2.16.840.1.507568.3.579.2. 462 Unknown [id number] 2.16.840.1.837108.3.579.2. 462 Unknown [id number] 2.16.840.1.337592.3.579.2. 462 Unknown [id number] 2.16.840.1.627643.3.579.2. 462 Unknown [id number] 2.16.840.1.965828.3.579.2. 462 Unknown [id number] 2.16.840.1.784000.3.579.2. 462 Unknown [id number] 2.16.840.1.170195.3.579.2. 462 Unknown [id number] 2.16.840.1.126695.3.579.2. 462 Unknown [id number] 2.16.840.1.207292.3.579.2. 462 Unknown [id number] 2.16.840.1.616873.3.579.2. 462 Unknown [id number] 2.16.840.1.751647.3.579.2. 462 Unknown [id number] 2.16.840.1.901382.3.579.2. 462 Unknown [id number] 2.16.840.1.247952.3.579.2. 462 Unknown [id number] 2.16.840.1.928025.3.579.2. 462 Unknown [id number] 2.16.840.1.185826.3.579.2. 462 Unknown [id number] 2.16.840.1.209704.3.579.2. 462 Unknown [id number] [id number]. 462 Unknown [id number] 2.16.840.1.709802.3.579.2. 462 Unknown [id number] 2.16.840.1.803550.3.579.2. 462 Unknown [id number] 2.16.840.1.425370.3.579.2. 462 Unknown [id number] 2.16.840.1.993641.3.579.2. 462 Unknown [id number] 2.16.840.1.734874.3.579.2. 462 Unknown [id number] 2.16.840.1.812665.3.579.2. 462 Unknown [id number] 2.16.840.1.829056.3.579.2. 462 Unknown [id number] 2.16.840.1.461908.3.579.2. 462 Unknown [id number] 2.16.840.1.441745.3.579.2. 462 Unknown [id number] 2.16.840.1.859117.3.579.2. 462 Unknown [id number] 2.16.840.1.058811.3.579.2. 462 Unknown [id number] 2.16.840.1.966864.3.579.2. 462 Unknown [id number] 2.16.840.1.426653.3.579.2. 462 Social History Date Type Detail Facility Start: 06-27-2020 Tobacco smoking status TXIS Unknown if ever smoked [facility] Work Phone: Start: 1980 Sex Assigned At Female [facility] Start: 01-08-2020 End: 04-24-2025 Tobacco smoking status Never smoked tobacco (finding) [facility] Start: 11-04-2022 End: 03-31-2023 Alcohol intake Current drinker of alcohol (finding) [facility] Start: 11-04-2022 End: 05-28-2025 History of Social function [facility] Start: 11-04-2022 End: 05-28-2025 Tobacco use panel [facility] Start: 1980 Sex Assigned At Not on file [facility] Start: 10-25-2022 End: 05-17-2023 Exposure to SARS-CoV-2 (event) Not sure [facility] Start: 05-17-2023 End: 05-28-2025 Alcohol intake Ex-drinker (finding) [facility] Start: 03-23-2022 End: 12-01-2024 Sex Female (finding) [facility] NEGATED: Highlighted row Not [facility] Medical Equipment Procedure Code Equipment Code [...] ETH FDA Start: 03-27-2019 RELOAD,STANDARD 45 [id number] [facility] FDA Start: 03-27-2019 Goals Date Patient Goal Desired Activity /State Functional Status Date Assessment Result Facility 05-28-2025 Patient Health [facility] ionnaire 2 item (PHQ-2) [Reported] [facility] 10-13-2023 Functional Status Awake, Up to bathroom [facility] 10-13-2023 Functional Status [facility] 10-13-2023 Functional Status Maintained [facility] 10-05-2023 Functional Status [facility] Mental Status Date Assessment Result Facility 01-19-2025 Cognitive function Voice/Name [facility] Work Phone: 01-03-2025 [facility] function [facility] Work Phone: 10-13-2023 Mental Status Oriented x 4 [facility] 10-13-2023 Mental Status [facility] 10-13-2023 Mental Status Orientation Asse ssment Oriented x 4 [facility] Clinical Notes 11-04-2022 to 05-28-2025 [place] Patel CNP - 05/28/2025 10:00 AM Durga Nguyen MA - 05/28/2025 10:00 AM Durga Nguyen MA - 05/28/2025 10:00 AM [place] Perez CNP - 04/16/2025 10:30 AM EDT Note Date & Type Note Facility 05-28-2025 History of Presen t illness Narrative DEPARTMENT OF NEUROLOGY BOTOX PROCEDURE NOTE FOR HEADACHE Date: 05/28/25 Patient: Michelle Carlin : 1980 Diagnosis: Intractable [...] 2. L Frontalis 10 units 3. R Film Maker 10 units 4. L Film Maker 10 units 5. R Temporalis 20 units [...] the acute treatment of migraine the patient uses Nurtec with good results along with Fioricet. The patient states headaches have increased possibly due to weather changes and Botox is nearing due. The patient reports jaw pain is improved [...] expectations reviewed in detail. C[place]AND Lara CNP 05/28/25 Procedure: Trigger point injections into posterior cervical [...] after receiving TPI today. [place] Lara CNP 05/28/25 Administrations This Visit onabotulinumtoxin A (BOTOX) injection 200 Units Admin Date 05/28/25 Action Given Dose 200 Units Route IntraMUSCular Site Other Administered By C[place]AND Lara CNP Ordering Provider: [place] Lara CNP [facility]: 1330-6886-90 Lot#: [id number] Can Washer: Allergan Patient Supplied? No 05/28/2025 Mariana BOLTON Trigger point injections Lidocaine [facility] 7069-4304-69 Lot [id number] 9 ml Kenalog [facility] 9948-7967-84 Lot [id number] 1 ml documented in this encounter [facility] 05-28-2025 Note DEPARTMENT OF NEUROL OGY BOTOX PROCEDURE NOTE FOR HEADACHE Date: 05/28/25 Patient: Michelle Carlin : 1980 Diagnosis: Intractable [...] 2. L Frontalis 10 units 3. R Film Maker 10 units 4. L Film Maker 10 units 5. R Temporalis 20 units [...] the acute treatment of migraine the patient uses Nurtec with good results along with Fioricet. The patient states headaches have increased possibly due to weather changes and Botox is nearing due. The patient reports jaw pain is improved [...] expectations reviewed in detail. [place] Lara CNP 05/28/25 Procedure: Trigger point injections into posterior cervical [...] after receiving TPI today. [place] Lara CNP 05/28/25 [facility] 05-14-2025 Progress note [facility] 04-16-2025 History of Present illness Narrative Formatting of this note is different fro m the original. [facility] Primary Care Physician: [...] is seen in the [facility] of [facility] for migraines. Patient states she has [...] Dispense Refill ALPRAZolam (Xanax) 0.5 MG tablet bttlkxwahx-toxdzifzsrtte-ebsoddfx 50-325-40 MG tablet Take 1 tablet by [...] injection 9 mL 9 mL Injection Once C[place]AND Patel CNP triamcinolone acetonide (Kenalog) injection 10 mg 10 mg IntraMUSCular Once [place]AND Patel CNP triamcinolone acetonide (Kenalog) injection 10 mg 10 mg IntraMUSCular Once C[place]AND Patel CNP triamcinolone acetonide (Kenalog) injection 10 mg 10 mg IntraMUSCular Once [place] Patel CNP Family History Problem Relation Name Age of Onset High Blood Pressure Mother Sara Other ([id number]) Mother Sara fibromyalgia, anxiety issues Cancer Mother [...] to call the Department of Neurology at [phone] for any further concerns. Sincerely, [place] Lara [...] Lara CNP 04/16/25 documented in this encounter [facility] 03-06-2025 History of Present illness Narrative Formatting of this note might be differe nt from the original. DEPARTMENT OF NEUROLOGY BOTOX PROCEDURE NOTE FOR [...] 2. L Frontalis 10 units 3. R Film Maker 10 units 4. L Film Maker 10 units 5. R Temporalis 20 units [...] CNP Ordering Provider: C[place]AND Lara CNP ND: 1501-1875-57 Lot#: [id number] Can Washer: Allergan Patient Supplied? No documented in this encounter [facility] 03-06-2025 Note DEPARTMENT OF NEUROL OGY BOTOX [...] 2. L Frontalis 10 units 3. R Film Maker 10 units 4. L Film Maker 10 units 5. R Temporalis 20 units [...] receiving TPI today. C[place] Lara CNP 03/05/25 [facility] 02-06-2025 Evaluation note Diagnosis Onset Date Resolution Back pain acute February 06 9:53am Cervical segment dysfunction acute February 06, 2025 9:53am Segmental and somatic dysfunction of thoracic region acute February 06, 2025 9:53am Segmental dysfunction of lumbar region acute February 06, 2025 9:53am Migraines chronic February 06 9:53am Abdominal pain acute February 20, 2025 10:52am Gastroparesis acute February 20 10:52am IBD (inflammatory bowel disease) acute February 20, 2025 10:52am Irritable bowel syndrome with diarrhea acute February 20, 2025 10:52am Cervical segment dysfunction acute February 22, 2025 4:37pm Segmental and somatic dysfunction of thoracic region acute February 22, 2025 4:37pm Segmental dysfunction of lumbar region acute February 22, 2025 4:37pm Migraines chronic February 22, 2025 4:37pm Cervical segment dysfunction acute March 15, 2025 10:30am Segmental and somatic dysfunction of thoracic region acute March 15, 2025 10:30am Segmental dysfunction of lumbar region acute March 15, 2025 10:30am Migraines chronic March 15 10:30am Cervical segment dysfunction acute March 22, 2025 11:28am Segmental and somatic dysfunction of pelvic region acute March 22, 2025 11:28am Segmental and somatic dysfunction of thoracic region acute March 22, 2025 11:28am Segmental dysfunction of lumbar region acute March 22, 2025 11:28am Migraines chronic March 22 11:28am Cervical segment dysfunction acute March 29, 2025 9:56am Segmental and somatic dysfunction of pelvic region acute March 29, 2025 9:56am Segmental and somatic dysfunction of thoracic region acute March 29, 2025 9:56am Segmental dysfunction of lumbar region acute March 29, 2025 9:56am Migraines chronic March 29 9:56am Cervical segment dysfunction acute April 03 11:10am Segmental and somatic dysfunction of pelvic region acute April 03 11:10am Segmental and somatic dysfunction of thoracic region acute April 03 11:10am Segmental dysfunction of lumbar region acute April 03 11:10am Migraines chronic April 03 11:10am Cervical segment dysfunction acute April 16 1:03pm Segmental and somatic dysfunction of pelvic region acute April 16 1:03pm Segmental and somatic dysfunction of thoracic region acute April 16 1:03pm Segmental dysfunction of lumbar region acute April 16 1:03pm Back pain chronic April 16 1:03pm Cervical segment dysfunction acute April 24 9:29am Segmental and somatic dysfunction of pelvic region acute April 24 9:29am Segmental and somatic dysfunction of thoracic region acute April 24 9:29am Segmental dysfunction of lumbar region April 24 9:29am Migraines chronic April 24, 2025 9:29am Cervical segment dysfunction acute April 30 10:55am Segmental and somatic dysfunction of pelvic region April 30 10:55am Segmental and somatic dysfunction of thoracic region acute April 30 10:55am Segmental dysfunction of lumbar region acute April 30 10:55am Migraines chronic April 30, 2025 10:55am Cervical segment dysfunction acute May 14, 2025 8:47am Segmental and somatic dysfunction of pelvic region acute May 14, 2025 8:47am Segmental and somatic dysfunction of thoracic region acute May 14, 2025 8:47am Segmental dysfunction of lumbar region acute May 14, 2025 8:47am Cervical segment dysfunction acute May 30 10:34am Segmental and somatic dysfunction of pelvic region acute May 30 10:34am Segmental and somatic dysfunction of thoracic region acute May 30 10:34am Segmental dysfunction of lumbar region acute May 30 10:34am [facility] Work Phone: 1(630) 403-201306-17-2025 Nuclear medicine Diagnostic study note [facility] Imaging Services [address] [place] [address] Hepatobilliary Img w/Pharm Int MR#: [id number] Acct: [id number] Name: MICHELLE CARLIN ANN Rep #: [id number] : 1980 F 44 From: Geo Gongora MD PCP: Dr. Mark Shabazz MD Status: REG CLI Study:Hepatobilliary Img w/Pharm Int Date of Exam: 02/06/25 Exam# [id number] Ordering Dr: Remington Toscano DO PROCEDURE: HEPATOBILLIARY [...] IMPRESSION: Normal gallbladder ejection fraction. Reading Location: [facility] CC: Dr. Mark Shabazz MD; Unruly Friend, DO ~ Distribution Clerk: Signed [facility]06-03-2025 Evaluation note* Diagnosis Onset Date Resolution Status Admit Date Cervical segment dysfunction acute January 23, 2025 12:53pm Segmental and somatic dysfunction of thoracic region acute [facility] 2024 12:53pm Segmental dysfunction of lumbar region acute January 23, 2025 1 2:53pm Cervical segment dysfunction acute January 29, 2025 4:11pm Segmental and somatic dysfunction of thoracic region acute [facility] 2024 4:11pm Segmental dysfunction of lumbar region acute January 29, 2025 4 :11pm Back pain acute February 06 9:53am Cervical segment dysfunction acute February 06, 2025 9:53am Segmental and somatic dysfunction of thoracic region acute [facility] 2024 9:53am Segmental dysfunction of lumbar region [...] and somatic dysfunction of thoracic region acute [facility] 2024 4:37pm Segmental dysfunction of lumbar region acute February 22, 2025 4 :37pm Migraines chronic February 22, 2025 4:37pm Cervical segment dysfunction acute March 15, 2025 10:30am Segmental and somatic dysfunction of thoracic region acute [facility] 2024 10:30am Segmental dysfunction of lumbar region acute March 15, 2025 10:30am Migraines chronic March 15 10:30am Cervical segment dysfunction acute March 22, 2025 11:28am Segmental and somatic dysfunction of pelvic region acute [facility] 2024 11:28am Segmental and somatic dysfunction of thoracic region acute J trevor 2024 11:28am Segmental dysfunction of lumbar region [...] dysfunction of thoracic region acute S eptemb2024 10:55am Segmental dysfunction of lumbar region acute April 30 10:55am Migraines chronic April 30, 2025 10:55am Cervical segment dysfunction acute May 14, 2025 8:47am Segmental and somatic dysfunction of pelvic region acute Sep tember 2024 8:47am Segmental and somatic dysfunction of thoracic region acute S eptember 2024 8:47am Segmental dysfunction of lumbar region acute May 14, 2025 8:47am [facility] Work Phone: 1(495) 396-904706-03-2025 History of Present illness Narrative* Marianajohn Acuña, [place] - BRUSH STAINER - 01/23/2025 10:00 AM EDT [facility] Primary Care Physician: [...] is seen in the [facility] of [facility] for migraines. Patient states she has [...] Dispense Refill ALPRAZolam (Xanax) 0.5 MG tablet mklqdljrdt-pkujqkcpmeotz-egbwkwnv 50-325-40 MG tablet Take 1 tablet by [...] IntraDERmal Once Mariana Acuña APRN - SUDHAKAR triamcinolone acetonide (Kenalog) injection 10 mg 10 mg IntraMUSCular Once Mariana Acuña, FINISHED HARDWARE ERECTOR - BRUSH STAINER triamcinolone acetonide (Kenalog) injection 10 mg 10 mg IntraMUSCular Once Mariana Acuña APRN - BRUSH STAINER Family History Problem Relation Name Age of Onset High Blood Pressure Mother Sara Other ([id number]) Mother Sara fibromyalgia, anxiety issues Cancer Mother [...] to call the Department of Neurology at [phone] for any further concerns. Sincerely, C[place] Lara [...] [place] Lara CNP 01/23/25 documented in this [facility]05-30-2025 Consult note Author Sandra Rowley [facility] Note Date/Time January 19, 2025 11:12 am [facility] Medical Records Department [address] [place] [address] Pre-Anesthesia Evaluation 01/19/25 1107 MR#: [id number] Acct: [id number] Name: MICHELLE CARLIN ANN Rep #:[id number] : 1980 44 From: Sandra ZUNIGA PCP: Dr. 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.] Tobacco Use History Tobacco Use History - inverform machine operator: Tobacco Use History - inverform machine operator Tobacco Use Smoking Status Never smoker 01/10/25 11:26 Hx Tobacco Use No 01/10/25 11:26 Years Smoking Packs Smoked per Day Smoking Cessation Date was within the last 15 years Hx Smoking Cessation Date Hx Smoking Cessation Counseling Hematologic Medial History Hematologic Hx - inverform machine operator: 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 Hx of Blood Transfusion No 01/10/25 11:26 [...] confused, unrespo /Reproduction History /Reproductive History - inverform machine operator: /Reproductive Hx- inverform machine operator Hx Now No 01/10/25 11:26 Gestational Age [...] 4 mg PO QHS 05/16/24 Unknown History snvqvccsgn-xbsjyynnxbbfm-aprudyjk 1 tab PO QHS Headach e 06/12/24 [...] (~2014) History of bilateral breast reduction surgery (~2018) History of loop electrical excision procedure (LEEP) [...] CRNA Cosigner Signature: Date CC: ~ Signed [facility] Work Phone: 1(187) 521-185805-30-2025 History and physical note Author Diann [facility] Note Date/Time January 19, 2025 10:52 am [facility] Medical Records Department [address] [place] [address] History & Physical Exam 01/19/25 1001 MR#: [id number] Acct: [id number] Name: MICHELLE CARLIN Rep #:[id number] : 1980 44 From: Diann Perez MD PCP: Dr. Mark Shabazz MD Status :[facility] Location: [place] [address] History and Physical Date of Admission: 01/19/25 Date of Service: 12/25/24 MR#: [id number] Acct: [id number] Name: MICHELLE CARLIN Rep #: [id number] : 1980 Provider: Dr. Diann Perez MD Age/Sex: 44/F Location: [facility] Status: Signed Intake Vital Signs 11/22/2508:46 [...] 4 mg PO QHS 05/16/24 12/25/24 History hdsaucxbru-xpdiertcawnxu-qbckdzfg 1 tab PO QHS Headache 06/12/24 12/25/24 History 50 mg-325 mg-40 mg tablet diphenhydramine HCl 25 mg capsule 25 mg PO QHS 12/25/24 12/25/24 History (Benadryl) [facility] Medical History Depression Anxiety Injury of head [...] spouse current occupational status: employed current occupation: [employer] [place] Smoking Status: Never smoker alcohol [...] cooperative, healthy appearing and no acute distress [facility] Head: normal to inspection Chest Other: [...] for breast cancer: Status: Acute Comment: 28.2% [facility] lifetime breast cancer risk Plan [...] question this time. Diann Perez M.D. Pager: [phone] [employer] [facility] [address] [place] [address], [facility], [address] [place] [address] Office: [phone] Coding Level of Care Code Off vis,est,level [...] MD; Dr. Diann Perez MD ~* Signed [facility] Work Phone: 1(832) 598-793705-30-2025 Consult note [facility] Medical Records Department [address] [place] [address] Anesthesia Postop Eval I 01/19/25 1229 MR#: [id number] Acct: [id number] Name: MICHELLE CARLIN ANN Rep #:[id number] : 1980 44 From: Sandra Richardson RNA PCP: Dr. Mark Shabazz MD Status :REG SDC Y Race: C Location: [place] [address] Anesthesia: Postop Eval I Current Vital Signs [...] Postop Eval 1 completed: Yes 01/19/25 1231 ASSOCIATE [employer]ACLE RETAIL> Date _ Sandra Negroterclaudia [employer]ATE [employer] Cosigner Signature: Date CC: ~ Signed [facility]05-30-2025 Procedure note [facility] Medical Records Department [address] [place] [address] Operative Report 01/19/25 1204 MR#: [id number] Acct: [id number] Name: MICHELLE CARLIN Rep #:[id number] : 1980 44 From: Diann Perez MD PCP: Dr. Mark Shabazz MD Status :[facility] Location: [place] [address] Operative Report (Standard) Operative Information Date of Procedure: 01/19/25 Pre-Operative Diagnosis: Left breast mass 12:00 3 cm from the nipple Post-Operative Diagnosis: Same Surgery/Procedure Performed: Ultrasound wire needle localization excisional leftbreast biopsy film producer: Yes Media Job Titles: Parth Alexander Tasks completed by first crusher: Opening & closing and Retracting Type of [...] wire was deliveredinto the wound. 2 silk ayilmw-ek-ijdok stay suture was placed around the wire [...] Shabazz MD; Dr. Diann Perez MD~ Signed [facility]05-30-2025 Discharge summary [facility] Medical Records Department [facility] [place] [address] Instructions for Home/Discharge Instructions 01/19/25 1207 MR#: [id number] Acct: [id number] Name: MICHELLE CARLIN ANN Rep #:[id number] : 1980 44 From: Diann Perez MD PCP: Dr. Mark Shabazz MD Status :REG [facility] Discharge Instructions Diet Discharge Diet: No restrictions [...] With: Diann Perez MD When: Please call [phone] for an appointment to be seen in 2 week. Test Results: Test results from this visit will be discussed in further detail at your follow- up appointment, if applicable. Discharge Plan Admission Attending Provider: Diann Perez Primary Care Provider: Mark Shabazz Instructions Print Language: Portuguese Discharge Orders/Prescriptions Prescriptions: New oxycodone 5 mg [...] 100 mg tablet 1,140 mg PO DAILY mygkwrhiym-ybycttaonzwkt-ttwu 1 TABLET tablet 1 tab PO QHS Referrals / Follow Up: Mark Shabazz MD [Primary Care Provider] - Disposition Disposition (needs filled in before D/C Order can be placed): Home, Self Care 01/19/25 1209Tajuan miguel Perez MD CC: Dr. Mark Shabazz MD ~ Signed [facility]05-30-2025 Consult note [facility] Medical Records Department [address] [place] [address] Pre-Anesthesia Evaluation 01/19/25 1107 MR#: [id number] Acct: [id number] Name: MICHELLE CARLIN Rep #:[id number] : 1980 44 From: Sandra ZUNIGA PCP: Dr. 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.] Tobacco Use History Tobacco Use History - inverform machine operator: Tobacco Use History - inverform machine operator Tobacco Use Smoking Status Never smoker 01/10/25 11:26 Hx Tobacco Use No 01/10/25 11:26 Years Smoking Packs Smoked per Day Smoking Cessation Date was within the last 15 years Hx Smoking Cessation Date Hx Smoking Cessation Counseling Hematologic Medial History Hematologic Hx - inverform machine operator: 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 Hx of Blood Transfusion No 01/10/25 11:26 [...] confused, unrespo /Reproduction History /Reproductive History - inverform machine operator: /Reproductive Hx- inverform machine operator Hx Now No 01/10/25 11:26 Gestational Age (in weeks): EDC: Hx Hx Para Hx Section SAB No 01/10/25 11:26 Active Medications Active Medications: Current Medications Generic Name Dose Route Start Last Admin Trade Name Franklyn PRN Reason Stop Dose Admin Cefazolin Sodium [...] 4 mg PO QHS 05/16/24 Unknown History hjaryfasxc-imuvdnnprpwld-vthpikxl 1 tab PO QHS Headach e 06/12/24 [...] additional complaints, except as documented. 01/19/25 1112 ASSOCIATE [employer]> Date _ Sandra Rowley CRNA Cosigner Signature: Date CC: ~ Signed [facility]05-30-2025 History and physical note [facility] Medical Records Department [address] [place] [address] History & Physical Exam 01/19/25 1001 MR#: [id number] Acct: [id number] Name: MICHELLE CARLIN ANN Rep #:[id number] : 1980 44 From: Diann Perez MD PCP: Dr. Mark Shabazz MD Status :[facility] Location: [facility] AC08-1 History and Physical Date of Admission: 01/19/25 Date of Service: 12/25/24 MR#: [id number] Acct: [id number] Name: MICHELLE CARLIN Rep #: [id number] : 1980 Provider: Dr. Diann Perez MD Age/Sex: 44/F Location: [facility] Status: Signed Intake Vital Signs 11/22/2508:46 [...] 4 mg PO QHS 05/16/24 12/25/24 History dednqdykby-qtchxfubfjbdb-aybykwsd 1 tab PO QHS Headache 06/12/24 12/25/24 History 50 mg-325 mg-40 mg tablet diphenhydramine HCl 25 mg capsule 25 mg PO QHS 12/25/24 12/25/24 History (Benadryl) PFS Medical History Depression Anxiety Injury of head [...] spouse current occupational status: employed current occupation: [employer]- [place] Smoking Status: Never smoker alcohol [...] cooperative, healthy appearing and no acute distress [facility] Head: normal to inspection Chest Other: [...] for breast cancer: Status: Acute Comment: 28.2% HenrySalvador lifetime breast cancer risk Plan On exam [...] question this time. Diann Perez M.D. Pager: [phone] [employer] [facility] [address] [place] [address], [facility], [address] [place] [address] Office: [phone] Coding Level of Care Code Off vis,est,level [...] MD; Dr. Diann Perez MD ~* Signed [facility]05-30-2025 [facility] Medical Records Department [address] [place] [address] History Physical Exam 01/19/25 1001 MR#: [id number] Acct: [id number] Name: MICHELLE CARLIN Rep #: [id number] : 1980 44 From: Diann Perez MD PCP: Dr. Mark Shabazz MD Status:[facility] Location: [place] [address] History and Physical Date of Admission: 01/19/25 Date of Service: 12/25/24 MR#: [id number] Acct: [id number] Name: MICHELLE CARLIN Rep #: [id number] : 1980 Provider: Dr. Diann Perez MD Age/Sex: 44/F Location: [facility] Status: Signed Intake Vital Signs 11/22/2508:46 12/25/2514:07 [...] 4 mg PO QHS 05/16/24 12/25/24 History xprglbjyar-qdozdxarslgpx-olgdywtl 1 tab PO QHS Headache 06/12/24 12/25/24 History 50 mg-325 mg-40 mg tablet diphenhydramine HCl 25 mg capsule 25 mg PO QHS 12/25/24 12/25/24 History (Benadryl) [facility] Medical History Depression Anxiety Injury of head [...] spouse current occupational status: employed current occupation: [employer] [place] Smoking Status: Never smoker alcohol [...] stent, palpitations, shortness (more content not included)... [facility]05-21-2025 Radiology Diagnostic study note [facility] Imaging Services [address] [place], [place] [id number] (284) Cerv Spine 2 or 3 Views MR#: [id number] Acct: [id number] Name: MICHELLE CARLIN ANN Rep #: [id number] : 1980 F 44 From: Gwyn Smith MD PCP: Dr. Mark Shabazz MD Status: REG CLI Study:Cerv Spine 2 or 3 Views Date of Exam: 01/09/25 Exam# [id number] Ordering Dr: Celina Gunderson D.C. PROCEDURE: CERV [...] No prevertebral soft tissue swelling. Reading Location: [facility] CC: [place] Dr. Mirna Gunderson; Dr. Mark Shabazz MD ~ Distribution Clerk: Signed [facility]05-21-2025 Radiology Diagnostic study note [facility] Imaging Services [address] [place] [address] L/S Spine Min 4 Views MR#: [id number] Acct: [id number] Name: MICHELLE CARLIN ANN Rep #: [id number] : 1980 F 44 From: Gwyn Smith MD PCP: Dr. Mark Shabazz MD Status: REG CLI Study:L/S Spine Min 4 Views Date of Exam: 01/09/25 Exam# [id number] Ordering Dr: Celina Gunderson D.C. PROCEDURE: L/S SPINE MIN 4 VIEWS 01/09/2025 REASON FOR EXAM: BACK PAIN TECHNIQUE: Four views; AP, bilateral oblique and lateral COMPARISON: None available FINDINGS: 5 evq-gow-voqwjia lumbar vertebral type bodies identified. No fracture or malalignment. No evidenceof spondylolysis. Disc spaces appear within limits. RAD/L/S Spine Min 4 Views IMPRESSION: Study appears within limits. Reading Location: [id number] CC: DC Dr. Mirna Gunderson; Dr. Mark Shabazz MD ~ Distribution Clerk: Signed [facility]05-20-2025 Evaluation note* Diagnosis Onset Date Resolution Status Admit Date Cervical segment dysfunction acute January 09, 2025 10:54am Neck pain acute January 09, 2025 10:54am Segmental and somatic dysfunction of thoracic region acute [facility] 2024 10:54am Segmental dysfunction of lumbar region acute January 09, 2025 1 0:54am Back pain chronic January 09, 2025 10:54am Migraines chronic January 09, 2025 10:54am Cervical segment dysfunction acute January 23, 2025 12:53pm Segmental and somatic dysfunction of thoracic region acute [facility] 2024 12:53pm Segmental dysfunction of lumbar region acute January 23, 2025 1 2:53pm Cervical segment dysfunction acute January 29, 2025 4:11pm Segmental and somatic dysfunction of thoracic region acute [facility] 2024 4:11pm Segmental dysfunction of lumbar region [...] acute J 2024 4:37pm Segmental dysfunction of lumbar region acute February 22, 2025 4 :37pm Migraines chronic February 22, 2025 4:37pm Cervical segment dysfunction acute March 15, 2025 10:30am Segmental and somatic dysfunction of thoracic region acute trevor2024 10:30am Segmental dysfunction of lumbar region [...] somatic dysfunction of pelvic region acute Mar 1:03pm Segmental and somatic dysfunction of thoracic [...] somatic dysfunction of pelvic region acute Sep tember 2024 10:55am Segmental and somatic dysfunction of thoracic region acute S eptember 2024 10:55am Segmental dysfunction of lumbar region acute April 30, 025 10:55am [facility] Work Phone: 1(252) 414-377305-05-2025 Evaluation note* Diagnosis Onset Date Resolution Status [...] somatic dysfunction of pelvic region acute Diego y 2024 11:28am Segmental and somatic dysfunction of thoracic region acute J trevor 2024 11:28am Segmental dysfunction of lum bar region acute March 22, 2025 11:28am Migraines chronic March 22 11:28am Cervical segment dysfunction acute March 29, 2025 9:56am Segmental and somatic dysfunction of pelvic region acute Mar us2024 9:56am Segmental and somatic dysfunction of thoracic region acute A ug2024 9:56am Segmental dysfunction of lum bar region acute March 29, 2025 9:56am [facility] Work Phone: 1(905) 415-238105-05-2025 Evaluation note* Diagnosis Onset Date Resolution Status [...] somatic dysfunction of thoracic region acute [facility] 2024 9:53am Segmental dysfunction of lum bar region acute February 06, 2025 9:53am Migraines chronic February 06 9:53am Abdominal pain acute February 20, 2025 10:52am Gastroparesis acute February 20, 025 10:52am IBD (inflammatory bowel disease) acute [...] somatic dysfunction of thoracic region acute J [facility] 2024 10:30am Segmental dysfunction of lum bar [...] lum bar region acute April 03 11:10am [facility] Work Phone: 1(449) 429-664005-05-2025 Evaluation note* Diagnosis Onset Date Resolution Status [...] somatic dysfunction of thoracic region acute J [facility] 2024 12:53pm Segmental dysfunction of lum bar region acute January 23, 2025 1 2:53pm Cervical segment dysfunction acute January 29, 2025 4:11pm Segmental and somatic dysfunction of thoracic region acute J [facility] 2024 4:11pm Segmental dysfunction of lum bar region acute January 29, 2025 4 :11pm Back pain acute February 06 9:53am Cervical segment dysfunction acute February 06, 2025 9:53am Segmental and somatic dysfunction of thoracic region acute J [facility] 2024 9:53am Segmental dysfunction of lum bar region acute February 06, 2025 9:53am Migraines chronic February 06 9:53am Abdominal pain acute February 20, 2025 10:52am Gastroparesis acute February 20, 025 10:52am IBD (inflammatory bowel disease) acute February 20, 2025 1 0:52am Irritable bowel syndrome wit h diarrhea acute February 20, 2025 1 0:52am Cervical segment dysfunction acute February 22, 2025 4:37pm Segmental and somatic dysfunction of thoracic region acute J [facility] 2024 4:37pm Segmental dysfunction of lum bar region acute February 22, 2025 4 :37pm Migraines chronic February 22, 2025 4:37pm Cervical segment dysfunction acute March 15, 2025 10:30am Segmental and somatic dysfunction of thoracic region acute J [facility] 2024 10:30am Segmental dysfunction of lum bar region acute March 15, 2025 10:30am Migraines chronic March 15 10:30am Cervical segment dysfunction acute March 22, 2025 11:28am Segmental and somatic dysfunction of pelvic region acute Diego y 2024 11:28am Segmental and somatic dysfunction of [...] lum bar region acute April 16 1:03pm [facility] Work Phone: 1(360) 495-853205-05-2025 Evaluation note* Diagnosis Onset Date Resolution Status [...] M ay 2024 10:54am Segmental dysfunction of lumbar region acute January 09, 2025 1 0:54am Back pain chronic January 09, 2025 10:54am Migraines chronic January 09, 2025 10:54am Cervical segment dysfunction acute January 23, 2025 12:53pm Segmental and somatic dysfunction of thoracic region acute [facility] 2024 12:53pm Segmental dysfunction of lumbar region acute January 23, 2025 1 2:53pm Cervical segment dysfunction acute January 29, 2025 4:11pm Segmental and somatic dysfunction of thoracic region acute [facility] 2024 4:11pm Segmental dysfunction of lumbar region acute January 29, 2025 4 :11pm Back pain acute February 06 9:53am Cervical segment dysfunction acute February 06, 2025 9:53am Segmental and somatic dysfunction of thoracic region acute [facility] 2024 9:53am Segmental dysfunction of lumbar region acute February 06, 2025 9:53am Migraines chronic February 06 9:53am Abdominal pain acute February 20, 2025 10:52am Gastroparesis acute February 20, 10:52am IBD (inflammatory bowel disease) acute February 20, 2025 1 0:52am Irritable bowel syndrome wit h diarrhea acute February 20, 2025 1 0:52am Cervical segment dysfunction acute February 22, 2025 4:37pm Segmental and somatic dysfunction of thoracic region acute [facility] 2024 4:37pm Segmental dysfunction of lumbar region acute February 22, 2025 4 :37pm Migraines chronic February 22, 2025 4:37pm Cervical segment dysfunction acute March 15, 2025 10:30am Segmental and somatic dysfunction of thoracic region acute J [facility] 2024 10:30am Segmental dysfunction of lumbar region acute March 15, 2025 10:30am Migraines chronic March 15 10:30am Cervical segment dysfunction acute March 22, 2025 11:28am Segmental and somatic dysfunction of pelvic region acute Feb 11:28am Segmental and somatic dysfunction of thoracic region acute J [facility] 2024 11:28am Segmental dysfunction of lumbar region [...] somatic dysfunction of pelvic region acute Sep tember 2024 9:29am Segmental and somatic dysfunction of thoracic region acute S eptember 2024 9:29am Segmental dysfunction of lumbar region acute April 24 9:29am [place] [employer] Work Phone: 1(492) 477-553304-22-2025 History of Present illness Narrative* Mariana Acuña, FINISHED HARDWARE ERECTOR - BRUSH STAINER - 12/12/2024 10:00 AM EDT DEPARTMENT OF NEUROLOGY BOTOX PROCEDURE NOTE FOR HEADACHE Date: 12/12/24 Patient: Mcihelle Carlin : 1980 Diagnosis: Intractable chronic migraine [...] 2. L Frontalis 10 units 3. R Film Maker 10 units 4. L Film Maker 10 units 5. R Temporalis 20 units [...] By MARIEL Ordering Provider: Mariana Acuña CNP [facility]:[id number] Lot#: [id number] Can Washer: allergan Patient Supplied?: no,buy and bill * Karen Nguyen MA - 12/12/2024 10:00 AM EDT 12/12/2024 Mariana Acuña BRUSH STAINER Trigger point injections Lidocaine [facility] 8156-9863-27 Lot [id number] 9ml Kenalog [facility] 7633-5373-55 Lot [id number] 1 ml documented in this [facility]04-22-2025 [facility] PROCEDURE NOTE FOR [...] 2. L Frontalis 10 units 3. R Film Maker 10 units 4. L Film Maker 10 units 5. R Temporalis 20 units [...] least 60% after receiving TPI today. Mariana Acuña APRN - SUDHAKAR 12/12/24[facility] [id number] Evaluation note* Diagnosis Onset Date Resolution Status [...] somatic dysfunction of thoracic region acute 2024 12:53pm Segmental dysfunction of lum bar [...] 20, 2025 10:52am Gastroparesis acute February 20, 10:52am IBD (inflammatory bowel disease) acu te [...] bar region acute March 15, 2025 10:30am [facility] Work Phone: 1(164) 547-698904-02-2025 Evaluation note* Diagnosis Onset Date Resolution Status [...] somatic dysfunction of thoracic region acute [facility] 2024 12:53pm Segmental dysfunction of lum bar region acute January 23, 2025 1 2:53pm Cervical segment dysfunction acute January 29, 2025 4:11pm Segmental and somatic dysfunction of thoracic region acute J [facility] 2024 4:11pm Segmental dysfunction of lum bar region acute January 29, 2025 4 :11pm Back pain acute February 06 9:53am Cervical segment dysfunction acute February 06, 2025 9:53am Segmental and somatic dysfunction of thoracic region acute [facility] 2024 9:53am Segmental dysfunction of lum bar region acute February 06, 2025 9:53am Migraines chronic February 06 9:53am Abdominal pain acute February 20, 2025 10:52am Gastroparesis acute February 20, 10:52am IBD (inflammatory bowel disease) acu te [...] somatic dysfunction of thoracic region acute J [facility] 2024 10:30am Segmental dysfunction of lum bar region acute March 15, 2025 10:30am Migraines chronic March 15 10:30am Cervical segment dysfunction acute March 22, 2025 11:28am Segmental and somatic dysfunction of thoracic region acute J [facility] 2024 11:28am Segmental dysfunction of lum bar region acute March 22, 2025 11:28am [facility] Work Phone: 1(962) 294-329103-28-2025 Radiology Diagnostic study note [facility] Imaging Services [address] [place], [place] [address] Breast Limited Unilateral MR#: [id number] Acct: [id number] Name: MICHELLE CARLIN Rep #: [id number] : 1980 F 44 From: Jelani Longo MD PCP: Dr. Mark Shabazz MD Status: REG CLI Study:Breast Limited Unilateral Date of Exam: 11/14/24 Exam# [id number] Ordering Dr: Maryjane Alvarado PROCEDURE: BREAST LIMITED [...] breast sonogram. Birads: 1, negative. Reading Location: [place] [address] CC: GRAHAM Alvarado; Dr. Mark Shabazz MD ~ Distribution Clerk: Signed [facility]03-12-2025 Evaluation note* Diagnosis Onset Date Resolution [...] region acute January 09, 2025 1 0:54am [facility] Work Phone: 1(283) 862-691503-12-2025 Evaluation note* Diagnosis Onset Date Resolution Status [...] region acute January 29, 2025 4 :11pm [place] Work Phone: 1(766) 455-858603-12-2025 Evaluation note* Diagnosis Onset Date Resolution Status [...] region acute January 23, 2025 1 2:53pm [facility] [facility] Work Phone: 1(511) 472-479803-12-2025 Evaluation note* Diagnosis Onset Date Resolution Status [...] :11pm Back pain acute February 06 9:53am [place] [employer] [facility] Work Phone: 1(287) 825-622503-12-2025 Evaluation note* Diagnosis Onset Date Resolution Status [...] somatic dysfunction of thoracic region acute [facility] 2024 12:53pm Segmental dysfunction of lum bar region acute January 23, 2025 1 2:53pm Cervical segment dysfunction acute January 29, 2025 4:11pm Segmental and somatic dysfunction of thoracic region acute J [facility] 2024 4:11pm Segmental dysfunction of lum bar region acute January 29, 2025 4 :11pm Back pain acute February 06 9:53am Cervical segment dysfunction acute February 06, 2025 9:53am Segmental and somatic dysfunction of thoracic region acute [facility] 2024 9:53am Segmental dysfunction of lum bar region acute February 06, 2025 9:53am Migraines chronic February 06 9:53am [facility] Work Phone: 1(280) 332-724403-12-2025 Evaluation note* Diagnosis Onset Date Resolution Status [...] somatic dysfunction of thoracic region acute [facility] 2024 9:53am Segmental dysfunction of lum bar region acute February 06, 2025 9:53am Migraines chronic February 06 9:53am Gastroparesis acute February 20, 10:52am Irritable bowel syndrome wit h diarrhea acute February 20, 2025 1 0:52am [facility] Work Phone: 1(995) 596-222203-12-2025 Evaluation note* Diagnosis Onset Date Resolution Status [...] 20, 2025 10:52am Gastroparesis acute February 20, 10:52am IBD (inflammatory bowel disease) acu te February 20, 2025 10:52am Irritable bowel syndrome wit h diarrhea acute February 20, 2025 1 0:52am Cervical segment dysfunction acute February 22, 2025 4:37pm Segmental and somatic dysfunction of thoracic region acute J trevor2024 4:37pm Segmental dysfunction of lum bar region acute February 22, 2025 4 :37pm [facility] [facility] Work Phone: 1(188) 458-951403-11-2025 History of Present illness Narrative* Mariana Acuña, [place] - BRUSH STAINER - 10/31/2024 9:30 AM EDT [facility] Primary Care Physician: [...] is seen in the [facility]UROLOGY CL[facility]IC of [facility] for migraines. Patient states she has [...] 10 mg IntraMUSCular Once [place] Patel CNP triamcinolone acetonide (Kenalog) injection 10 mg 10 mg IntraMUSCular Once Mariana Acuña APRN - SUDHAKAR triamcinolone acetonide (Kenalog) injection 10 mg 10 mg IntraMUSCular Once [place] Patel CNP Family History Problem Relation Name Age of Onset High Blood Pressure Mother Sara Other ([id number]) Mother Sara fibromyalgia, anxiety issues Cancer Mother [...] to call the Department of Neurology at [phone] for any further concerns. Sincerely, [place] Lara [...] EDT 10/31/2024 Trigger point injections Mariana Acuña BRUSH STAINER Lidocaine [facility] 6423-6310-78 Lot [id number] 9 ml Kenalog [facility] 7479-7329-09 Lot [id number] 1 ml documented in this [facility]01-28-2025 Evaluation note* Diagnosis Onset Date Resolution Status Admit Date Abdominal pain acute September 192024 10:18am Gastroparesis acute August 10:18am IBD (inflammatory bowel disease) acute September 19 10:18am Irritable bowel syndrome wit h diarrhea acute September 19 10:18am Family history of breast cancer acut e November 01, 2024 3:32pm Left breast mass acute November 012024 3:32pm [facility] Work Phone: 1(827) 389-984201-28-2025 Evaluation note* Diagnosis Onset Date Resolution Status [...] 9:28am Left breast mass acute November 9:28am [facility] Work Phone: 1(215) 962-583101-28-2025 Evaluation note* Diagnosis Onset Date Resolution Status [...] 2:58pm Migraines acute January 09, 2025 10:54am [facility] Work Phone: 1(561) 652-627101-28-2025 Evaluation note* Diagnosis Onset Date Resolution Status [...] region acute January 09, 2025 1 0:54am [facility] Work Phone: 1(818) 369-287401-28-2025 History of Present illness Narrative* Mariana Jarbidge, FINISHED HARDWARE ERECTOR - BRUSH STAINER - 09/19/2024 8:00 AM EST DEPARTMENT OF [...] 2. L Frontalis 10 units 3. R Film Maker 10 units 4. L Film Maker 10 units 5. R Temporalis 20 units [...] CNP Ordering Provider: [place] Lara CNP NDC: 9834-0999-88 Lot#: [id number] Can Washer: Allergan Patient Supplied?: No documented in this [facility]01-28-2025 History of Present illness Narrative* [place] [...] 2. L Frontalis 10 units 3. R Film Maker 10 units 4. L Film Maker 10 units 5. R Temporalis 20 units [...] Lara CNP Ordering Provider: [place] Lara CNP [facility]: 3004-8456-99 Lot#: [id number] Can Washer: Allergan Patient Supplied?: No documented in this [facility]01-28-2025 Miscellaneous Notes* Addendum Note - Karen Nguyen MA - 09/19/2024 8:00 AM ESTAddended by: KAREN NGUYEN on: 09/19/2024 09:57 AM Modules accepted: Orders documented in this [facility]01-28-2025 Miscellaneous Notes* Addendum Note - Karen Nguyen MA - 09/19/2024 8:00 AM ESTAddended by: KAREN NGUYEN on: 09/19/2024 09:57 AM Modules accepted: Orders * Addendum Note - [place] Patel CNP - 09/19/2024 8:00 AM ESTAddended by: MARIANA ACUÑA on: 09/25/2024 07:08 AM Modules accepted: Orders documented in this [facility]01-28-2025 Note* Addendum Note - Karen Nguyen MA - 09/19/2024 8:00 AM ESTAddended by: KAREN NGUYEN on: 09/19/2024 09:57 AM Modules accepted: Orders [facility] [id number] Note* Addendum Note - Karen Nguyen MA - 09/19/2024 8:00 AM ESTAddended by: KAREN NGUYEN on: 09/19/2024 09:57 AM Modules accepted: Orders [facility] [id number] Note* Addendum Note - Karen Nguyen MA - 09/19/2024 8:00 AM ESTAddended by: KAREN NGUYEN on: 09/19/2024 09:57 AM Modules accepted: Orders [facility]01-28-2025 Note* Addendum Note - Karen Nguyen MA - 09/19/2024 8:00 AM ESTAddended by: KAREN NGUYEN on: 09/19/2024 09:57 AM Modules accepted: Orders [facility] [id number] Note* Addendum Note - [place] Patel CNP - 09/19/2024 8:00 AM ESTAddended by: MARIANA ACUÑA on: 09/25/2024 07:08 AM Modules accepted: Orders [facility]01-28-2025 NoteDEPARTMENT OF NEUROLOGY BOTOX PROCEDURE NOTE FOR [...] 2. L Frontalis 10 units 3. R Film Maker 10 units 4. L Film Maker 10 units 5. R Temporalis 20 units [...] in detail. Mariana Acuña APRN - SUDHAKAR 09/19/24 Procedure: Trigger point injections into posterior [...] least 60% after receiving TPI today. Mariana Acuña APRN - SUDHAKAR 09/19/24[facility]01-01-2025 Consult note Author Sandralukasz Rowley [facility] Note Date/Time January 19, 2025 12:31 pm [facility] Medical Records Department [address] [place] [address] Anesthesia Postop Eval I 01/19/25 1229 MR#: [id number] Acct: [id number] Name: MICHELLE CARLIN ANN Rep #:[id number] : 1980 44 From: Sadnra ZUNIGA PCP: Dr. Mark Shabazz MD Status :REG SDC Y Race: C Location: [place] [address] Anesthesia: Postop Eval I Current Vital Signs [...] CRNA Cosigner Signature: Date CC: ~ Signed [facility] Work Phone: 1(240) 420-768112-26-2024 Telephone encounter Note* Telephone Encounter - Karen Ba - 08/17/2024 3:47 PM EST Name of Caller: Michelle Contact Reason for Appointment: Pt is requesting to reschedule appointment on 08/31/24 at 11:30 due to change in work schedule. 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 States it does not list fouzia on script. Entire script with FUOZIA is in epic. R: Hung up with pharmacist and called [facility] to verify speaking with [facility] pharmacist and gave requested information/ verification of script. Pt advised to call back with worsening of symptoms, concern or questions. Pt verbalized understanding. Reason for Disposition Pharmacy calling with prescription question and triager answers question Protocols used: Medication Question [id number] documented in this [facility]11-08-2024 Telephone encounter Note* Telephone Encounter - Regla Vela RN - 06/30/2024 8:04 AM EST Noted [facility] HospitalGgrtgp05-28-7952 Telephone encounter Note* Telephone Encounter - Kiera Rinaldi RN - 06/29/2024 4:24 PM EST S: Michelle from [facility] calling [facility] d/t medication problem B: butalbital- acetaminophen- caffeine 50-325-40 mg tablet A: pharmacist calling stating received a controlled substance script that did not go through the controlled substance part of e script. States it does not list fouzia on script. Entire script with FOUZIA is in epic. R: Hung up with pharmacist and called [facility] to verify speaking with [facility] pharmacist and gave requested information/ verification of script. Pt advised to call back with worsening of symptoms, concern or questions. Pt verbalized understanding. Reason for Disposition Pharmacy calling with prescription question and triager answers question Protocols used: Medication Question Jxbz-[id number]-[id number] [facility] HospitalWwcvhd54-87-0697 History of Present illness Narrative* Mariana Acuña, FINISHED HARDWARE ERECTOR - BRUSH STAINER - 06/29/2024 2:30 PM EST [facility] Primary Care Physician: [...] is seen in the [facility]OLOGY CLINIC of [facility] for migraines. Patient states she has [...] Past Surgical History: Procedure Laterality Date COLPOSCOPY 2013 HYSTEROSCOPY 2014 plus D&C OOPHORECTOMY Left 2009 OVARIAN CYST [...] Onset High Blood Pressure Mother Sara Other ([id number]) Mother Sara fibromyalgia, anxiety issues Cancer Mother [...] to call the Department of Neurology at [phone] for any further concerns. Sincerely, [place] Lara [...] Lara CNP 06/29/24 documented in this [facility]10-14-2024 History of Present illness Narrative* CLEVELAND Patel CNP - 06/05/2024 2:00 PM EDT DEPARTMENT OF [...] 2. L Frontalis 10 units 3. R Film Maker 10 units 4. L Film Maker 10 units 5. R Temporalis 20 units [...] Lara CNP Ordering Provider: C[place]AND Lara CNP [facility]: [id number] Lot#: [id number] Can Washer: Allergan Patient Supplied?: SAMPLE documented in this [facility]10-14-2024 [facility]OX PROCEDURE NOTE FOR [...] 2. L Frontalis 10 units 3. R Film Maker 10 units 4. L Film Maker 10 units 5. R Temporalis 20 units [...] in detail. Mariana Acuña APRN - SUDHAKAR 06/02/24[facility]10-01-2024 Telephone encounter Note* Telephone Encounter - Marilee Collins MA - 05/23/2024 12:20 PM EDT [employer] Botox auth form filled out, scanned and faxed. Will await insurance decision. [facility] [id number] Miscellaneous Notes* Telephone Encounter - Marilee Collins [...] prescription was sent to the pharmacy to chart picker. * Telephone Encounter - Veronique Simeon - 04/27/2024 4:27 PM EDT Patient has new prescription insurance and [facility] submitted the RX Prescription PA for Botox [...] 04/25/24 (due to being closed for holiday) [facility] can look into pharmacy benefit [...] needed or not. Please advise Office Name: [facility] documented in this [facility]09-20-2024 Telephone encounter Note* Telephone Encounter - Mariana Acuña APRN - SUDHAKAR - 05/12/2024 12:30 PM EDT Requested Prescriptions Signed Prescriptions Disp Refills fremanezumab (Ajovy) 225 MG/1.5ML auto-injector 1.5 mL 2 Sig: Inject 1 Pen (225 mg) under the skin every 30 (thirty) days. Authorizing Provider: MARIANA ACUÑA [facility] HospitalYtzynd27-93-3133 Miscellaneous Notes* Telephone Encounter - CLEVELAND Patel CNP - 05/12/2024 12:30 PM EDT Requested Prescriptions Signed Prescriptions Disp Refills fremanezumab (Ajovy) 225 MG/1.5ML auto-injector 1.5 mL 2 Sig: Inject 1 Pen (225 mg) under the skin every 30 (thirty) days. Authorizing Provider: MARIANA ACUÑA * Telephone Encounter - Wendi Starks PharmD - 05/12/2024 10:34 AM EDT Pt reached out to [facility] about Rx. Pended Rx. documented in this encounterSUniversity Hospitals Ahuja Medical CenterXuikqi56-37-3023 Telephone encounter Note* Telephone Encounter - Wendi Starks PharmD - 05/12/2024 10:34 AM EDT Pt reached out to [facility] about Rx. Pended Rx. [place] [id number] Telephone encounter Note* Telephone Encounter - Marilee Collins MA - 05/01/2024 1:59 PM EDT Insurance needs a PA on Ajovy. [place] [id number] Miscellaneous Notes* Telephone Encounter - Marilee Collins [...] prescription was sent to the pharmacy to chart picker. * Telephone Encounter - Veronique Simeon - 04/27/2024 4:27 PM EDT Patient has new prescription insurance and [facility] submitted the RX Prescription PA [...] 04/25/24 (due to being closed for holiday) [facility] can look into pharmacy benefit [...] needed or not. Please advise Office Name: [facility] documented in this [facility]09-06-2024 Miscellaneous Notes* Telephone Encounter - Regla [...] prescription was sent to the pharmacy to chart picker. * Telephone Encounter - Veronique Simeon - 04/27/2024 4:27 PM EDT Patient has new prescription insurance and [facility] submitted the RX Prescription PA [...] 04/25/24 (due to being closed for holiday) [facility] can look into pharmacy benefit [...] [facility] Neurology documented in this [facility]09-06-2024 Telephone encounter Note* Telephone Encounter - Regla Vela RN - 04/28/2024 3:58 PM EDT Lmovm please release message to patient as written [facility] HospitalDbzkno93-41-4816 Note* Addendum Note - CLEVELAND Patel CNP - 04/28/2024 3:52 PM EDTAddended by: MARIANA ACUÑA on: 04/28/2024 03:52 PM Modules accepted: Orders [place] [id number] Note* Addendum Note - CLEVELAND Patel CNP - 04/28/2024 3:52 PM EDTAddended by: MARIANA ACUÑA on: 04/28/2024 03:52 PM Modules accepted: Orders [place] [id number] Note* Addendum Note - CLEVELAND Patel CNP - 04/28/2024 3:52 PM EDTAddended by: MARIANA ACUÑA on: 04/28/2024 03:52 PM Modules accepted: Orders [place] [id number] Note* Addendum Note - CLEVELAND Patel CNP - 04/28/2024 3:52 PM EDTAddended by: MARIANA ACUÑA on: 04/28/2024 03:52 PM Modules accepted: Orders [facility] HospitalAdpvzp78-46-3967 Telephone encounter Note* Telephone Encounter - CLEVELAND Patel CNP - 04/28/2024 3:50 PM EDT Please advise the patient she must try and fail Ajovy before approving Emgality. The prescription was sent to the pharmacy to chart picker. [facility] HospitalWexsmg46-87-9405 Telephone encounter Note* Telephone Encounter - Veronique Simeon - 04/27/2024 4:27 PM EDT Patient has new prescription insurance and [facility] submitted the RX Prescription PA for Botox and PA was Denied. Per new insurance, the requested medication can only be approved if the patient has trial and failure of one of the following; aimovig or ajovy Botox RX Prescription PA Denied, until pt tries and fails Aimovig OR Ajovy [facility] HospitalSwpwnh28-14-7883 Miscellaneous Notes* Telephone Encounter - Veronique Simeon - 04/27/2024 4:27 PM EDT Patient has new prescription insurance and [facility] submitted the RX Prescription PA [...] 04/25/24 (due to being closed for holiday) [facility] can look into pharmacy benefit [...] needed or not. Please advise Office Name: [facility] documented in this [facility]08-22-2024 Telephone encounter Note* Telephone Encounter - Regla Vela RN - 04/13/2024 10:56 AM EDT Noted thanks [facility] HospitalXyxket50-63-4278 Miscellaneous Notes* Telephone Encounter - Regla Vela RN - 04/13/2024 10:56 AM EDT Noted thanks * Telephone Encounter - Veronique Simeon - 04/13/2024 9:50 AM EDT It will likely be Medical, but since its not active until 04/23/24, I cannot get the prescription insurance info yet, so I cannot say for sure. On 04/25/24 (due to being closed for holiday) [facility] can look into pharmacy benefit with new [...] needed or not. Please advise Office Name: [facility] documented in this [facility]08-22-2024 Telephone encounter Note* Telephone Encounter - Veronique Simeon - 04/13/2024 9:50 AM EDT It will likely be Medical, but since its not active until 04/23/24, I cannot get the prescription insurance info yet, so I cannot say for sure. On 04/25/24 (due to being closed for holiday) [facility] can look into pharmacy benefit with new insurance. [facility] HospitalRqhzbu78-46-0645 Telephone encounter Note* Telephone Encounter - Darleen [...] needed or not. Please advise Office Name: [facility] Rsdwyd69-20-2707 History of Present illness Narrative* Mariana Acuña, FINISHED HARDWARE ERECTOR - BRUSH STAINER - 02/16/2024 9:00 AM EDT DEPARTMENT OF [...] 2. L Frontalis 10 units 3. R Film Maker 10 units 4. L Film Maker 10 units 5. R Temporalis 20 units [...] CNP Ordering Provider: C[place]AND Lara CNP NDC: [id number] Lot#: [id number] Can Washer: Allergan Patient Supplied?: No documented in this [facility]05-14-2024 History of Present illness Narrative* CLEVELAND Patel CNP - 01/04/2024 10:00 AM EDT [facility] Primary Care Physician: Mark Shabazz Chief Complaint: Chief Complaint Patient presents with Procedure TPI Main Diagnosis: Diagnosis Plan 1. Myofascial pain lidocaine (Xylocaine) 1 % injection 9 mL triamcinolone acetonide (Kenalog) injection 10 mg 2. Chronic migraine without aura, intractable, without status migrainosus methylPREDNISolone (Medrol Dospak) 4 MG tablets unoqadxiys-xiayvwwnnsrwo-lrayetlo 50-325-40 MG tablet History: given by the patient and EMR. EMR was personally reviewed prior to today's visit and included review of prior notes and intermediate communications. HPI: Ms. Michelle Carlin is a 43 y.o. female who is seen in the NEUROLOGY CLINIC of [facility] for migraines. Patient states she has [...] muscle spasms. 0 Refill(s) 90 tablet 1 mxsxzznmuy-aquxhlthpkxli-wupsipvu 50-325-40 MG tablet TAKE 1 TABLET BY [...] Onset High Blood Pressure Mother Sara Other ([id number]) Mother Sara fibromyalgia, anxiety issues Cancer Mother [...] migrainosus methylPREDNISolone (Medrol Dospak) 4 MG tablets jmyjccgdkk-iwuxqokgmhwqo-jpqqhqvm 50-325-40 MG tablet PLAN: 1. TPI provided [...] to call the Department of Neurology at [phone] for any further concerns. Sincerely, C[place] Patel [...] Patel CNP 01/04/24 documented in this [facility]04-02-2024 History of Present illness Narrative* CLEVELAND [...] 2. L Frontalis 10 units 3. R Film Maker 10 units 4. L Film Maker 10 units 5. R Temporalis 20 units [...] Patel CNP Ordering Provider: CLEVELAND Patel CNP [facility]: [id number] Lot#: [id number] Can Washer: Allergan Patient Supplied?: No documented in this [facility]02-22-2024 Telephone encounter Note* Telephone Encounter - CLEVELAND Patel CNP - 10/14/2023 3:33 PM EST Requested Prescriptions Signed Prescriptions Disp Refills Rimegepant Sulfate (Nurtec) 75 MG tablet dispersible 16 tablet 5 Sig: TAKE 75 MG BY MOUTH ONCE EVERY OTHER DAY (MIGRAINE) Authorizing Provider: MARIANA ACUÑA [facility] [id number] Miscellaneous Notes* Telephone Encounter - CLEVELAND Patel CNP - 10/14/2023 3:33 PM EST Requested Prescriptions Signed Prescriptions Disp Refills Rimegepant Sulfate (Nurtec) 75 MG tablet dispersible 16 tablet 5 Sig: TAKE 75 MG BY MOUTH ONCE EVERY OTHER DAY (MIGRAINE) Authorizing Provider: MARIANA ACUÑA documented in this [facility]02-21-2024 Hospital Discharge instructions Patient Education 10/13/2023 13:04:08 1- [facility] General Discharge Guidelines (05/07/2023) (CUSTOM) SUGAR [...] 09/24/2023 10:21:45 With:ROXANA CLARK MD, Surgery Address: [address] [place] [address] [address] [facility] [place] [address]- [phone] When: Unknown Comments:Follow-up as scheduled [facility] 02-21-2024 Summary of episode note Discharge Instructions Thank you for allowing [facility] to assist you with your healthcare needs. [...] a purchased Sitz bath from a pharmacy, medical supply, or from [employer]) or hand-held shower should be taken 2-3 [...] Op 11/16/2023 09:30 AM ROXANA PAGE MD [facility] Surgery Follow Up Appointments Follow Up with ROXANA CLARK MD, Surgery When Why: Follow-up as scheduled Where: [address] [facility] [address] [place] [address]- [phone] The Following Activity and Diet Have Been [...] Post-op pain Duration: 7 Days Pickup at [facility] Unchanged APAP/ butalbital/ caffeine (APAP/ [...] by mouth Daily at bedtime Pharmacy Information [facility]: [address] [place] [address] [phone] Please take this list to your next doctor s visit. Bring all medications you take, including over the counter medications, herbals and other supplements with you to your doctor s visit. Patients and families are reminded to discard old lists and to update any records with all medication providers or retail pharmacies. Education Materials [facility] SAME DAY SURGERY DISCHARGE INSTRUCTIONS PLEASE FOLLOW [...] to receive it can visit one of [facility] vaccine clinics. There are many vaccine clinic locations within the [facility]. For locations and available times, please visit [email or web address] It is important to note that some COVID mobile vaccine clinics are held outdoors and may be canceled in rainy or stormy conditions. To learn more about pediatric vaccinations (ages 5-11), we invite you to visit the [facility] webpage. [email or web address] [email or web address] learn more about the COVID-19 vaccine, we invite you to visit the CDC website for a list of frequently asked questions.https://www.cdc.gov/coronavirus/2019-ncov/vaccines/faq.html [facility] Patient Portal Access Instructions: Stay connected with your healthcare team and access your personal medical information anytime with the [facility] Patient Portal. Please follow the directions below to create your [employer] account: 1.Access the email account you provided upon registration to the hospital/physician office.2.Look for an invitation email from [facility].3.Open the email and access the invitation link: AcceptInvitation to [facility].4.Fill in the required lópez to create your account. To access your account, visit [email or web address]. Click the blue button labeled Access Patient [...] who you will allowto register on the [facility] Patient Portal for access to your information. You can also access the [facility] Patient Portal on the [facility] hanane. Simply click on Patient Portal and then log into your account. If you would like to receive a full copy of your medical records, please contact the [facility] Medical Records Department by calling [phone], Wednesday through Wednesday between 8 a.m. and [...] Call your local pharmacy or go to http://bit.[email or web address] to find one close to you.3.Make use of household items: Use cat litter or old coffee grounds to dispose medications if other options arenot available. Mix your drugs with these household products, seal them in an airtight container andthrow it into the garbage. Call [facility]: [phone] to be sure your drugs can be [...] CHART COPY. Signatures Patient Education Materials 1- [facility] General Discharge Guidelines (05/07/2023) (CUSTOM) Medication Leaflets My discharge plan and instructions have been reviewed and explained to me and I,MICHELLE CARLIN understand my current condition and have read and understand these discharge instructions. I have received a written copy of the plan/instructions. If I have questions, I am aware that I should contact my doctor. 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: Date/Time: Relationship to Patient: Witness Name/Signature: Date/Time: [facility] HospitalOzalictq68-49-0435 Anesthesiology Consult note Patient: RAEGAN MICHELLE Haddad Age: 43 years Sex: Female : 1980 [...] ZAK SPRINGER MD on 10/13/2023 12:57 PM [facility] HospitalQqoolnxy07-32-0369 Anesthesiology Consult note Patient: MICHELLE CARLIN Age: [...] Problem list: Medical Hypothyroid / SNOMED CT 09944437 / Confirmed LLQ abdominal pain / SNOMED CT 733055833 / Confirmed Menopausal state / SNOMED CT 979034696 / Confirmed Encounter for annual routine gynecological examination / SNOMED CT 647201575 / Confirmed Premature menopause on HRT / SNOMED CT 9443747880 / Confirmed Weight loss, unintentional / SNOMED CT 6571551294 / Confirmed, Active Problems (12) Anal skin [...] Hyperlipidemia Father Diabetes Mother Procedure history: Colonoscopy (116273030) in the month of 07/2023 at 42 Years. Hysterectomy (888985000). Breast reduction, bilateral (816412304). LEEP (09887093). Appendectomy (951686349). Breast lumpectomy (5477971398). Dilation and curettage (59285505). Comments: 10/05/2023 10:33 EST - Tiarra Tripp [...] mmHg Vital Signs(last 24 hrs) Last Charted KEN652 mmHg (OCT 13 09:27) DBP70 mmHg (OCT 13 09:27) Measurements from flowsheet : Measurements 10/13/2023 9:27 EST Height 162.6 cm Height in inches 64 inch(es) Admission Weight 49.5 kg Weight Lbs 108.9 lb Weight Method Actual [place] Body Weight 54.74 kg Type of Scale [...] Method Explanation, Printed materials Preferred Spoken Language Portuguese Preferred Written Language Portuguese Family/Caregiver Prefer Spoken Language Portuguese Family/Caregiver Prefer Written Language Portuguese General Infection Prevention Strategies Hand hygiene Surgical Site Infection Prevention SSI FAQ provided Infection Prevention Teaching Evaluation Verbalizes/Nonverbally indicates understanding Pre Procedure/Surgery Education Appropriate expectations, Bring glasses, hearing aids, contact lenscase, Date/Time of procedure/surgery, Hospital gown requirement worn to OR, Leave valuables, jewelry, wedding ring at home, Meds to take or hold, NPO, Responsible local truck driver for discharge, Surgical skin prep Procedure/Surgical Teaching Evaluation Verbalizes/Nonverbally indicates understanding Safety Measures Education Fall prevention Safety Teaching Evaluation Verbalizes/Nonverbally indicates understanding 10/13/2023 9:27 EST Height 162.6 cm Height in inches 64 inch(es) Admission Weight 49.5 kg Weight Lbs 108.9 lb Weight Method Actual [place] Body Weight 54.74 kg Type of Scale [...] no difficulties Skin Temperature Warm Skin Description Hayden, Normal for ethnicity, Dry Skin Integrity Intact [...] Person #1 We May Share LU Carlin [phone] Designated Person #1 Relationship Spouse Privacy Restrictions [...] after midnight, No makeup, No jewelry, Responsible Republican, Aware of surgery location, Pre-op education done, No ordered medications, Instructed to bring home medications SN - Preprocedure Comments Spoke with patient, Verbalizes/Nonverbally indicates understanding Notification Attempts 10/12/23 1345 LM RE: OR REPORT IN TIMES. Barriers to Learning None evident Teaching Method Explanation, Printed materials Preferred Spoken Language Portuguese Preferred Written Language Portuguese Teaching Evaluation Verbalizes/Nonverbally indicates understanding Safety Brochure [...] after midnight, No makeup, No jewelry, Responsible Republican, Aware of surgery location, Pre-op education done, No ordered medications, Instructed to bring home medications (Modified) Notification Attempts 10/12/23 1345 LM RE: OR REPORT IN TIMES. Patient's Current Physicians Patient's Current Physicians Discharge To, Anticipated Home independently Personal Devices, Patient Valuables None Admission Note-Nursing Patient History PreTest (Modified) . Assessment and Plan [place] Society of Anesthesiologists (ASA) physical status classification: [...] TYRA SONI MD on 10/13/2023 11:04 AM [facility] HospitalMbjfrpil89-65-9591 History of Present illness Narrative* Mariana Acuña, FINISHED HARDWARE ERECTOR - BRUSH STAINER - 10/04/2023 3:00 PM EST [facility] Primary Care Physician: [...] is seen in the [facility]UROLOGY CLINIC of [facility] for migraines. Patient states she has [...] (Probiotic) 1-250 BILLION-MG capsule Take by mouth. wgnhypnewj-vwsplbjyswkae-xedgnqxs 50-325-40 MG tablet TAKE 1 TABLET BY MOUTH EVERY 6 HOURS IF NEEDED FOR HEADACHE. 90 day supply 120 tablet 0 cholecalciferol (Vitamin D-3) 50 MCG (2000 UT) [...] Onset High Blood Pressure Mother Sara Other ([id number]) Mother Sara fibromyalgia, anxiety issues Cancer Mother [...] to call the Department of Neurology at [phone] for any further concerns. Sincerely, CLEVELAND Patel [...] injection. C[place]AND Patel CNP documented in this encounterSUniversity Hospitals Ahuja Medical CenterLtthql11-11-0950 Telephone encounter Note* Telephone Encounter - Veronique Simeon - 08/24/2023 1:59 PM EST Faxed clinicals to the fax# provided for prevention dosing [facility] HospitalAjlsjl53-03-1518 Miscellaneous Notes* Telephone Encounter - Veronique Simeon - 08/24/2023 1:59 PM EST Faxed clinicals to the fax# provided for prevention dosing * Telephone Encounter - Veronique Pike MA - 08/24/2023 1:27 PM EST I spoke with Veronique Patiño with [facility] and she is submitting this information to [facility]. * Telephone Encounter - Sophie Garrido - 08/24/2023 11:54 AM EST Name of caller: Roxanna Contact phone number: [phone] Relationship to Patient: Aultcare Provider: Domenico DE LA FUENTE Practice: [facility]rology, [facility] Chief Complaint/Reason for Call: Roxanna is requesting a call back for clarification on Rx. Nurtec. Roxanna states that the medication was originally prescribed for acute care but is now prescribed at preventative dosing. Roxanna is also requesting to have chart notes faxed to fax number [phone]. Please advise. Best time of day caller can be reached: Any Patient advised that office/PCP has 24-48 business hours to return their call: No documented in this encounterSUniversity Hospitals Ahuja Medical CenterXmdhjl83-08-6008 Telephone encounter Note* Telephone Encounter - Veronique Pike MA - 08/24/2023 1:27 PM EST I spoke with Veronique Patiño with [facility] and she is submitting this information to [facility]. [facility] HospitalDrrxfk08-61-0921 Telephone encounter Note* Telephone Encounter - Sophie Garrido - 08/24/2023 11:54 AM EST Name of caller: Roxanna Contact phone number: [phone] Relationship to Patient: Aultcare Provider: Domenico DE LA FUENTE Practice: [facility]rology, [facility] Chief Complaint/Reason for Call: Roxanna is requesting a call back for clarification on Rx. Nurtec. Roxanna states that the medication was originally prescribed for acute care but is now prescribed at preventative dosing. Roxanna is also requesting to have chart notes faxed to fax number [phone]. Please advise. Best time of day caller can be reached: Any Patient advised that office/PCP has 24-48 business hours to return their call: No idiag Endoil08-71-2601 NoteBorderline elevated. Re-evaluation in 4-6 weeks is recommended if clinically indicated.[facility] ([place])Comment on above:Result Comment: On January 12, 2023, [address] [facility] [employer] implemented a new fecal calprotectinmethod, the DiaSorin Liaison Calprotectin assay. For assistance with interpretation of results in patients undergoing serial monitoring, contact Client Services at [phone] or [phone] to discuss options, preferably within 7 days of issuing this report. Interpretation: <50.0 ug/g: Normal 50.0 ug/g - 120.0 ug/g: Borderline elevated. Re-evaluation in 4-6 weeks is recommended if clinically indicated. >120.0 ug/g: Elevated Performed By: [place] [address] Hosiery Looper: Nicholas Reyes III, M.D. [facility]#: [id number] By: #### CALPRO ####[address] [place], [place] [id number] NoteCalprotectin InterpBorderline elevated. Re- evaluation in 4-6 weeks is recommended if clinically indicated.1 *ABN* (08/17/23 4:49 PM)AO Sendouts SSComment on above:Result Comment: On January 12, 2023, [facility] Flow[employer] implemented a new fecal calprotectinmethod, the DiaSorin Liaison Calprotectin assay. For assistance with interpretation of results in patients undergoing serial monitoring, contact Client Services at [phone] or [phone] to discuss options, preferably within 7 days of issuing this report. Interpretation: <50.0 ug/g: Normal 50.0 ug/g - 120.0 ug/g: Borderline elevated. Re-evaluation in 4-6 weeks is recommended if clinically indicated. >120.0 ug/g: Elevated Performed By: [place] [address] Hosiery Looper: Nicholas Reyes III, M.D. [facility]#: [id number] Telephone encounter Note* Telephone Encounter - CLEVELAND Patel CNP - 08/17/2023 10:13 AM EST Requested Prescriptions Signed Prescriptions Disp Refills tiZANidine (Zanaflex) 4 MG tablet 90 tablet 1 Sig: Take 1 tablet (4 mg) by mouth every 8 hours as needed for muscle spasms. 0 Refill(s) Authorizing Provider: MARIANA ACUÑA [facility] HospitalMkxgrp04-71-5389 Miscellaneous Notes* Telephone Encounter - CLEVELAND Patel [...] Name of caller: Pharmacist Contact phone number: [phone] Relationship to Patient: Pharmacy Provider: Jose Acuña Practice: Neuro Chief Complaint/Reason for Call: tiZANidine (Zanaflex) 4 MG tablet [[id number]] Order Details Dose, Route, Frequency: As Directed Dispense Quantity: 90 tablet Refills: 0 Si Refill(s MISSING DIRECTIONS - please advise accordingly. Best time of day caller can be reached: any Patient advised that office/PCP has 24-48 business hours to return their call: No documented in this [facility]12-26-2023 Telephone encounter Note* Telephone Encounter - Magaly Jaimes - 08/17/2023 9:38 AM EST Name of caller: Pharmacist Contact phone number: [phone] Relationship to Patient: Pharmacy Provider: Jose Acuña Practice: Neuro Chief Complaint/Reason for Call: tiZANidine (Zanaflex) 4 MG tablet [[id number]] Order Details Dose, Route, Frequency: As Directed Dispense Quantity: 90 tablet Refills: 0 Si Refill(s MISSING DIRECTIONS - please advise accordingly. Best time of day caller can be reached: any Patient advised that office/PCP has 24-48 business hours to return their call: No [facility] [id number] History of Present illness Narrative* Mariana CLEVELAND Acuña - BRUSH STAINER - 08/17/2023 8:45 AM EST DEPARTMENT OF [...] 2. L Frontalis 10 units 3. R Film Maker 10 units 4. L Film Maker 10 units 5. R Temporalis 20 units [...] Patel CNP Ordering Provider: CLEVELAND Patel CNP [facility]: [id number] Lot#: [id number] Can Washer: Allergan Patient Supplied?: No documented in this [facility]12-11-2023 Evaluation + Plan note Future Scheduled Tests Radiology* ANTHONY Mammo Diagnostic Bilateral w/Palomo 08/02/23 [facility] 12-06-2023 Telephone encounter Note* Telephone Encounter - Veronique Cailin - 07/28/2023 2:57 PM EST We have attempted to reach the patient several times regarding their medication refill with [facility]. They been unreachable via these methods; Phone call, SMS, MyChart message and have not been heard from since May. If we are unable to get in contact with the patient, they will be discharged from [facility] services. If the patient reaches out to the office, please have them contact us as soon as possible at [phone]. Thank you and have a great day! [facility] [id number] Miscellaneous Notes* Telephone Encounter - Veronique Simeon - 07/28/2023 2:57 PM EST We have attempted to reach the patient several times regarding their medication refill with [facility]. They been unreachable via these methods; Phone call, SMS, MyChart message and have not been heard from since May. If we are unable to get in contact with the patient, they will be discharged from [facility] services. If the patient reaches out to the office, please have them contact us as soon as possible at [phone]. Thank you and have a great day! documented in this [facility]11-03-2023 History of Present illness Narrative* Mariana Acuña APRN - SUDHAKAR - 06/25/2023 10:00 AM EDT [facility] Primary Care Physician: Mrak Shabazz Chief Complaint: Chief Complaint Patient presents [...] is seen in the [facility]UROLOGY CLINIC of [facility] for migraines. Patient states she has [...] (Probiotic) 1-250 BILLION-MG capsule Take by mouth. zcpbkjxwnq-uqikpphdcgmbl-odghustp 50-325-40 MG tablet TAKE 1 TABLET BY [...] Onset High Blood Pressure Mother Sara Other ([id number]) Mother Sara fibromyalgia, anxiety issues Cancer Mother [...] to call the Department of Neurology at [phone] for any further concerns. Sincerely, CLEVELAND Patel [...] CLEVELAND Patel CNP documented in this [facility]09-25-2023 History of Present illness Narrative* CLEVELAND [...] 2. L Frontalis 10 units 3. R Film Maker 10 units 4. L Film Maker 10 units 5. 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 Patient states she has [...] (Probiotic) 1-250 BILLION-MG capsule Take by mouth. iuulcpdscc-ckllzdcooifer-vrrssapo 50-325-40 MG tablet TAKE 1 TABLET BY [...] Cancer Other great Mat grandma pancreatic Other ([id number]) Mother fibromyalgia, anxiety issues Cancer Mother thyroid [...] to call the Department of Neurology at [phone] for any further concerns. Sincerely, CLEVELAND Patel [...] CLEVELAND Patel CNP documented in this [facility]07-06-2023 Telephone encounter Note* Telephone Encounter - Savana Wayne - 02/25/2023 3:07 PM EDT Noted --Scheduled pt [facility] [id number] Miscellaneous Notes* Telephone Encounter - Savana Wayne - 02/25/2023 3:07 PM EDT Noted --Scheduled pt * Telephone Encounter - Veronique Pike MA - 02/25/2023 3:01 PM EDT [place] * Telephone Encounter - Kacey Okeefe - 02/25/2023 2:41 PM EDT [facility] wanted Savana to know that they received the order for the pt's MRI and no authorization is required. Please advise. documented in this [facility]07-06-2023 Telephone encounter Note* Telephone Encounter - Veronique Pike MA - 02/25/2023 3:01 PM EDT FYBhavani [facility] HospitalJhyfds19-28-4938 Telephone encounter Note* Telephone Encounter - Kacey Okeefe - 02/25/2023 2:41 PM EDT Judy from [facility] wanted Savana to know that they received the order for the pt's MRI and no authorization is required. Please advise. [facility] [id number] History of Present illness Narrative* CLEVELAND Patel [...] 2. L Frontalis 10 units 3. R Film Maker 10 units 4. L Film Maker 10 units 5. R Temporalis 30 units [...] Patel CNP 02/10/23 documented in this [facility]06-21-2023 History of Present illness Narrative* CLEVELAND [...] 2. L Frontalis 10 units 3. R Film Maker 10 units 4. L Film Maker 10 units 5. R Temporalis 30 units [...] Patel CNP Ordering Provider: CLEVELAND Patel CNP [facility]: [id number] Lot#: [id number] Can Washer: Allergan Patient Supplied?: No documented in this [facility]06-07-2023 Telephone encounter Note* Telephone Encounter - CLEVELAND Patel CNP - 01/27/2023 12:09 PM EDT Requested Prescriptions Signed Prescriptions Disp Refills Rimegepant Sulfate (Nurtec) 75 MG tablet dispersible 16 tablet 5 Sig: TAKE 75 MG BY MOUTH ONCE EVERY OTHER DAY (MIGRAINE) Authorizing Provider: MARIANA ACUÑA [facility] [id number] Miscellaneous Notes* Telephone Encounter - CLEVELAND Patel CNP - 01/27/2023 12:09 PM EDT Requested Prescriptions Signed Prescriptions Disp Refills Rimegepant Sulfate (Nurtec) 75 MG tablet dispersible 16 tablet 5 Sig: TAKE 75 MG BY MOUTH ONCE EVERY OTHER DAY (MIGRAINE) Authorizing Provider: MARIANA ACUÑA documented in this encounterSUniversity [facility]als [facility]hu[facility] Medical [id number] Note ORIGINAL EXAMINATION: TWO XRAY VIEWS OF [...] Date: 11/26/2022 11:32:45 PM Ordering Provider: NURYS [facility]04-06-2023 Note ORIGINAL EXAMINATION: TWO XRAY VIEWS [...] Sign Date: 11/26/2022 11:32:45 PM Ordering Provider: [facility] [place]03-15-2023 History of Present illness Narrative* 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 L Frontalis 10 units 3. R Film Maker 10 units 4. L Film Maker 10 units 5. R Temporalis 30 units [...] Acuña CNP Ordering Provider: Mariana Acuña CNP [facility]:[id number] Lot#: [id number] Can Washer: Allergan Patient Supplied?: No documented in this [facility] HospitalDischar summary Author Diann Perez [facility] Note Date/Time January 19, 2025 12:09 pm [facility] Medical Records Department [address] [place] [address] Instructions for Home/Discharge Instructions 01/19/25 1207 MR#: [id number] Acct: [id number] Name: MICHELLE CARLIN ANN Rep #:[id number] : 1980 44 From: Diann Perez MD PCP: Dr. Mark Shabazz MD Status :REG [facility] Discharge Instructions Diet Discharge Diet: No restrictions [...] With: Diann Perez MD When: Please call [phone] for an appointment to be seen in 2 week. Test Results: Test results from this visit will be discussed in further detail at your follow- up appointment, if applicable. Discharge Plan Admission Attending Provider: Diann Perez Primary Care Provider: Mark Shabazz Instructions Print Language: Portuguese Discharge Orders/Prescriptions Prescriptions: New oxycodone 5 mg [...] 100 mg tablet 1,140 mg PO DAILY zdeurrstct-vwctypmrsxvye-ldqo 1 TABLET tablet 1 tab PO QHS Referrals / Follow Up: Mark Shabazz MD [Primary Care Provider] - Disposition Disposition (needs filled in before D/C Order can be placed): Home, Self Care 01/19/25 1209<Electronically signed by Diann Perez MD>Diann Perez MD CC: Dr. 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 [facility] Evaluation + Plan note Future Appointments Appointment Date:11/12/2023 09:45:00 AM Scheduled Provider:ROXANA CLARK MD Location:Gen Surg [facility] Appointment Type:GS OV Post Op [facility] Evaluation + Plan note Future Appointments Appointment Date:11/16/2023 09:30:00 AM Scheduled Provider:ROXANA CLARK MD Location:Gen Surg [facility] Appointment Type:GS OV Post Op [facility] Evaluation noteNo assessment information available [facility] Work Phone: Evaluation note* Diagnosis Chronic migraine without aura, intractable, without status migrainosus- Primary documented in this encounter [facility] HealthEvaluation note* Diagnosis Chronic migraine without aura, intractable, without status migrainosus- Primary documented in this encounter [facility] HealthEvaluation note* Diagnosis Chronic migraine without aura, intractable, without status migrainosus- Primary documented in this encounter [facility] HealthEvaluation note* Diagnosis Chronic migraine without aura, intractable, without status migrainosus- Primary documented in this encounter [facility] HealthEvaluation note* Diagnosis Chronic migraine without aura, intractable, without status migrainosus- Primary documented in this encounter [facility] HealthEvaluation note* Diagnosis Chronic migraine without aura, intractable, without status migrainosus- Primary documented in this encounter [facility] HealthEvaluation note* Diagnosis Chronic migraine without aura, intractable, without status migrainosus- Primary [facility]* Diagnosis Myofascial pain- Primary Unspecified myalgia and myositis Chronic migraine without aura, intractable, without status migrainosus documented in this encounter [facility]* Diagnosis Intractable chronic migraine without aura and without status migrainosus- Primary Myofascial pain Unspecified myalgia and myositis documented in this encounter [facility]* Diagnosis Intractable chronic migraine without aura and without status migrainosus- Primary documented in this encounter [facility]* Diagnosis Intractable chronic migraine without aura and without status migrainosus- Primary documented in this encounter [facility]* Diagnosis Myofascial pain- Primary Unspecified myalgia and myositis Intractable chronic migraine without aura and without status migrainosus documented in this encounter [facility]* Diagnosis Chronic migraine without aura, intractable, without status migrainosus- Primary documented in this encounter [facility]* Diagnosis Intractable chronic migraine without aura and without status migrainosus- Primary Myofascial pain Unspecified myalgia and myositis [facility]* Diagnosis Intractable chronic migraine without aura and without status migrainosus- Primary Myofascial pain Unspecified myalgia and myositis documented [facility] this encounter [facility]* Diagnosis Intractable chronic migraine without aura and without status migrainosus- Primary Myofascial pain Unspecified myalgia and myositis documented [facility]* Diagnosis Intractable chronic migraine without aura and without status migrainosus- Primary Myofascial pain Unspecified myalgia and myositis documented [facility]* Diagnosis Intractable chronic migraine without aura and without status migrainosus- Primary Myofascial pain Unspecified myalgia and myositis documented [facility]* Diagnosis Intractable chronic migraine without aura and without status migrainosus- Primary Myofascial pain Unspecified myalgia and myositis documented [facility] this encounter [facility]* Diagnosis Intractable chronic migraine without aura and without status migrainosus- Primary Myofascial pain Unspecified myalgia and myositis [facility] No data available for this section [facility] Progress note No data available for this section [facility] Progress note Author Mirna Gunderson [facility] Note Date/Time May 14, 2025 10:04am [facility] [address] [place] [address] OFFICE VISIT Date of Service: 05/14/25 MR#: [id number] Acct: [id number] Name: MICHELLE CARLIN ANN Rep #: [id number] : 1980 Provider: YOHANA Gunderson Age/Sex: 44/F Location: [facility] Status: Signed Intake Vital Signs 01/19/25 10:57 04/24/25 10:32 Height 5 ft 4 in 5 ft 4 in Intake Visit Reasons: ACUPUNCTURE/ADJUSTMENT Chief Complaint: neck and low back pain Allergies suture Allergy (Mild, Verified 05/14/25 09:14) pus tramadol (From Ultram) Adverse Reaction (Intermediate, Verified 05/14/25 09:14) hallucinations shellfish derived Adverse Reaction (Mild, Verified 05/14/25 09:14) Hives hydrocodone bitartrate (From Vicodin) Adverse Reaction (Verified 05/14/25 09:14) Vomiting Medications ?Medication ?Instructions ?Recorded ?Confirmed ?Type multivitamin 1 cap PO DAILY 04/22/1804/24 History cholecalciferol (vitamin D3) 50 50 mcg PO QDAY 4 05/14/25 History mcg (2,000 unit) capsule levothyroxine 50 mcg tablet 50 mcg PO QDAY 05/16/24 History lisdexamfetamine 30 mg capsule 30 mg PO QAM 05/16/24 0 05/14/25 History (Vyvanse) tizanidine 4 mg capsule 4 mg PO QHS 05/16/24 5 History rtprqnaowm-zopcwkwqgdrsy-apdmrhqm 1 tab PO QHS Headach e 06/12/24 05/14/25 History 50 mg-325 mg-40 mg tablet diphenhydramine HCl 25 mg capsule 25 mg PO QHS 5 05/14/25 History (Benadryl) magnesium 100 mg tablet 1,140 mg PO DAILY 01/10/25 0 05/14/25 History oxycodone 5 mg capsule 5 mg PO Q6H PRN pain 3 days #5 caps 01/19/25 05/14/25 Rx estradiol 2 mg tablet 2 mg PO QDAY #30 tabs 05/14/25 Rx PFSH Medical History Depression Anxiety Injury [...] (~2014) History of bilateral breast reduction surgery (~2018) History of loop electrical excision procedure (LEEP) (~2013) History of ovarian cystectomy H/O oophorectomy Family History Daughter Asthma Father Hypertension Mother Hypertension Thyroid disorder Diabetes Grandmother Breast cancer Cancer omentum Osteoporosis Aunt Breast cancer Aunt Breast cancer Social History household members: spouse current occupational status: employed current occupation: [employer] Smoking Status: Never smoker alcohol intake: never substance use type: does not use seatbelt use: always do you feel safe at home: Yes additional social history: - Rashard CABRERA ACUPUNCTURE/ADJUSTMENT Chief Complaint: upper and low back pain Visit Number: 13 Details: Michelle is a 44 y/o female here to follow up with upper and low back pain. Michelle advises she has been feeling pretty good overall. She woke with a stiff neck last Wednesday after staying in a hotel and was dealing with left neck pain and stiffness that has since worked itself out. She c/o mild neck and upper back stiffness today. She states her CANTU's had been bad so she did take a steroid dose pack which has been helpful. 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 She states she intermittently will get twinges of pain in her low back when she does certain things and she quickly stops so her low back is mildly tight equal across her low back/SI area. [...] normal cervical lordosis, Yes cervical muscular tenderness left greater than right diffuse , Yes cervical spasm right greater than left diffuse trapezius and paracervical muscles and Yes misalignment misalignment: C1, C2, C6 and C7 Thoracic/Lumber: No thoracic and lumbar spine normal to inspection (RIL: - IN),Yes paraspinal tenderness on the right greater than left (upper thoracic/ lower lumbar), Yes thoraco-lumbar spasm on the right greater than left (trap, levator,glute medius) and on the left greater than right (lumbar paraspinal, QL) and Yesmisalignment T1, T2, T3, T7, T8, L3, L4, L5 and RIL Sacroiliac joints: on the right tender to palpation Office Procedures Procedures - Chiropractic Procedures Manipulation: Cervical C2 and C6, Lumbar L4, Thoracic T2 and Pelvis RIL Manipulation: 3-4 regions Patient Response: positive Details: ?Acupuncture Patient instructions/Risk: Patient instructed not to move and informed of risks of moving. Risks associated with the procedure and the specific location were reviewed with the patient and consent was obtained. Acupuncture performed: E-stim was utilized. Acupoints Treated: BL10/23/25,GB20/21,AIDEN PT R/L trap,PC6,SP6 Sterile, single use, solid filament needles were inserted at various depths and angles to release tight tissue, improve microcirculation and remove neuro- noxious chemicals via a myofascial twitch response. [place] were inserted, needle manipulation was performed. Needle removal was performed and pressure wasapplied when necessary. Minutes:20 Needle Number: .25x15,.20x30 Patient response: pos Patient Positioning: prone Acupuncture Acupuncture with ES: Yes Assessment and Plan Assessment and Plan (1) Cervical segment dysfunction: Status: Acute (2) Segmental dysfunction of lumbar region: Status: Acute (3) Segmental and somatic dysfunction of thoracic region: Status: Acute (4) Segmental and somatic dysfunction of pelvic region: Status: Acute Orders: Orders Chiropractic Treatments Today M99.01 - Segmental and somatic dysfunction of cervical region, M99.02 - Segmental and somatic dysfunction of thoracic region, M99.03 - Segmental and somatic dysfunction of lumbar region, M99.05 - Segmental and somatic dysfunction of pelvic region Plan Patient was treated without incident. Continue care as needed. She is showing positive improvement. Plan Details Goals & Barriers: Goals Decrease spasm Decrease pain Improve HAs Improve ROM Decrease stress Follow Up: PRN Coding Level of Care Code No Charge Diagnoses Cervical segment dysfunction M99.01 Segmental dysfunction of lumbar region M99.03 Segmental and somatic dysfunction of thoracic region M99.02 Segmental and somatic dysfunction of pelvic region M99.05 CPT Codes Procedures - Manipulation: 3-4 regions (66335) Acupuncture - Acupuncture with ES: Yes ([id number]) 05/14/25 1028 <Electronically signed by Mirna Dominguez> Date _ Mirna Gunderson D.C. Cosigner Signature: Date (if applicable) CC: ~ [place] [facility] Work Phone: Reason for referral (narrative)No reason for referral information availableWWood [facility] Work Phone: Family History No Family [...] No March 27, 2019 5:08pm Power of General Office Worker No March 27 5:08pm Advance Directive Response Recorded Date/ Time Living Will No March 27, 2019 5:08pm Do you have a Healthcare Power of General Office Worker? No March 27, 2019 5:08pm Advance Directives No July 30, 2015 1:53pm Advance Directive Response Recorded Date/ Time Do you have a Healthcare Power of General Office Worker? No January 10, 2025 11:26am Advance Directives No July 30, 2015 1:53pm Advance Directive Response Recorded Date/ Time Do you have a Healthcare Power of General Office Worker? 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 [facility] [address] [place] [address] Referral ID Status Reason Start Date Expiration Date V isits Requested Visits Authorized [id number] Pending Review 02/16/2024 02/10/2025 1 1 Specialty Diagnoses / Procedures Referred By Contac t Referred To Contact Physical Therapy Diagnoses Chronic migraine without aura, intractable, without status migrainosus Procedures [place] OFFICE/OUTPATIENT NEW HIGH MDM 60-74 MINUTES Mariana Acuña APRN [facility] [address] [place] [address] Referral ID Status Reason Start Date Expiration Date Visits Requested Visits Authorized [id number] Pending Review Eval and Treat 02/10/2023 08/09/2023 99 99 Specialty Diagnoses / Procedures Referred By Contac t Referred To Contact Radiology Diagnoses Chronic migraine without aura, intractable, without status migrainosus Procedures MR brain wo contrast Mariana Acuña [facility] [address] [place] [address] Referral ID Status Reason Start Date Expiration Date V isits Requested Visits Authorized [id number] Pending Review 02/10/2023 08/09/2023 1 1 Specialty Diagnoses / Procedures Referred By Contac t Referred To Contact Diagnoses Chronic migraine without aura, intractable, without status migrainosus Mariana Acuña [facility] [address] [place] [address] Referral ID Status Reason Start Date Expiration Date V isits Requested Visits Authorized [id number] Pending Review 02/10/2023 08/09/2023 1 1 Chief [...] DISCUSS MRI RESULTS & OPTIONS December 25, 025 2:58pm IBD January 03, 2025 11:59 [...] 10:54 am Cervical segment dysfunction January 09, 2 025 10:54am Migraines January 09, 2025 10:54 [...] of lumbar region J trevor 2024 4:37pm Chief Complaint Admit Date BREAST [...] February 10:52am Irritable bowel syndrome with diarrhea Jose trevor 2024 10:52am Cervical segment dysfunction February [...] of lumbar region J trevor 2024 10:30am Chief Complaint Admit Date BREAST [...] 10:52am Irritable bowel syndrome with diarrhea J [facility] 2024 10:52am Cervical segment dysfunction February 22 4:37pm Segmental and somatic dysfunction of tho racic region February 22, 2025 4:37pm Segmental dysfunction of lumbar region J [facility] 2024 4:37pm Migraines February 22, 2025 4:37p m Cervical segment dysfunction March 15, 2025 10:30am Segmental and somatic dysfunction of tho racic region March 15, 2025 10:30am Segmental dysfunction of lumbar region J [facility] 2024 10:30am Migraines March 15, 2025 10:3 0am Cervical segment dysfunction March 22, 2025 11:28am Segmental and somatic dysfunction of tho racic region March 22, 2025 11:28am Segmental dysfunction of lumbar region J [facility] 2024 11:28am Chief Complaint Admit Date DISCUSS [...] 10:52am Irritable bowel syndrome with diarrhea J [facility] 2024 10:52am Cervical segment dysfunction February 22 [...] 12:53pm Segmental dysfunction of lumbar region J [facility] 2024 12:53pm Cervical segment dysfunction January 29 4:11pm Segmental and somatic dysfunction of tho racic region January 29, 2025 4:11pm Segmental dysfunction of lumbar region J [facility] 2024 4:11pm Back pain February 06, 2025 9:53 am Cervical segment dysfunction February 06, 2025 9:53am Segmental and somatic dysfunction of tho racic region February 06, 2025 9:53am Segmental dysfunction of lumbar region J [facility] 2024 9:53am Migraines February 06, 2025 9:53 am Abdominal pain February 20, 2025 10:52 am Gastroparesis February 20, 2025 10:52 am IBD (inflammatory bowel disease) February 10:52am Irritable bowel syndrome with diarrhea J [facility] 2024 10:52am Cervical segment dysfunction February 22 4:37pm Segmental and somatic dysfunction of tho racic region February 22, 2025 4:37pm Segmental dysfunction of lumbar region J [facility] 2024 4:37pm Migraines February 22, 2025 4:37p m Cervical segment dysfunction March 15, 2025 10:30am Segmental and somatic dysfunction of tho racic region March 15, 2025 10:30am Segmental dysfunction of lumbar region J [facility] 2024 10:30am Migraines March 15, 2025 10:3 0am Cervical segment dysfunction March 22, 2025 11:28am Segmental and somatic dysfunction of pel [place] region March 22, 2025 11:28am Segmental and somatic dysfunction of tho racic region March 22, 2025 11:28am Segmental dysfunction of lumbar region J [facility] 2024 11:28am Migraines March 22, 2025 11:2 [...] 25, 2024 2:58pm Cervical segment dysfunction January 09, 2 025 10:54am Neck pain January 09, 2025 [...] 10:52am Irritable bowel syndrome with diarrhea J [facility] 2024 10:52am Cervical segment dysfunction February 22 4:37pm Segmental and somatic dysfunction of tho racic region February 22, 2025 4:37pm Segmental dysfunction of lumbar region J [facility] 2024 4:37pm Migraines February 22, 2025 4:37p m Cervical segment dysfunction March 15, 2025 10:30am Segmental and somatic dysfunction of tho racic region March 15, 2025 10:30am Segmental dysfunction of lumbar region J [facility] 2024 10:30am Migraines March 15, 2025 10:3 [...] 10:52am Irritable bowel syndrome with diarrhea J [facility] 2024 10:52am Cervical segment dysfunction February 22 [...] of lumbar region S eptember 2024 10:55am Chief Complaint Admit Date BACK PAIN January 23, 2025 12:53 pm [...] April 24 9:29am ACUPUNCTURE/ADJUSTMENT April 30 10:55am E ORDER May 04, 2025 6:44am EMPLOYEE LABS May 04, 2025 6:46am ACUPUNCTURE/ADJUSTMENT May 14 8:47am Reason for Visit Admit Date Cervical segment dysfunction January 23 12:53pm Segmental and somatic dysfunction of tho racic region January 23, 2025 12:53pm Segmental dysfunction of lumbar region J [facility] 2024 12:53pm Cervical segment dysfunction January 29 4:11pm Segmental and somatic dysfunction of tho racic region January 29, 2025 4:11pm Segmental dysfunction of lumbar region J [facility] 2024 4:11pm Back pain February 06, 2025 9:53 am Cervical segment dysfunction February 06, 2025 9:53am Segmental and somatic dysfunction of tho racic region February 06, 2025 9:53am Segmental dysfunction of lumbar region J [facility] 2024 9:53am Migraines February 06, 2025 9:53 am Abdominal pain February 20, 2025 10:52 am Gastroparesis February 20, 2025 10:52 am IBD (inflammatory bowel disease) February 10:52am Irritable bowel syndrome with diarrhea J [facility] 2024 10:52am Cervical segment dysfunction February 22 4:37pm Segmental and somatic dysfunction of tho racic region February 22, 2025 4:37pm Segmental dysfunction of lumbar region J [facility] 2024 4:37pm Migraines February 22, 2025 4:37p m Cervical segment dysfunction March 15, 2025 10:30am Segmental and somatic dysfunction of tho racic region March 15, 2025 10:30am Segmental dysfunction of lumbar region J [facility] 2024 10:30am Migraines March 15, 2025 10:3 [...] of lumbar region S eptember 2024 10:55am Migraines April 30, 2025 10:55am Cervical segment dysfunction April 242024 8:47am Segmental and somatic dysfunction of pel [place] region May 14, 2025 8:47am Segmental and somatic dysfunction of tho racic region May 14, 2025 8:47am Segmental dysfunction of lumbar region S eptember 2024 8:47am Chief Complaint Admit Date GALLSTONES February 06, 2025 7:50 am ACUPUNCTURE/ADJUSTMENT [...] April 24 9:29am ACUPUNCTURE/ADJUSTMENT April 30 10:55am E ORDER May 04, 2025 6:44am EMPLOYEE LABS May 04, 2025 6:46am ACUPUNCTURE/ADJUSTMENT May 14 8:47am ACUPUNCTURE/ADJUSTMENT May 30, 2025 10:34am Reason for Visit Admit Date Back pain February 06, 2025 9:53 am Cervical segment dysfunction February 06, 2025 9:53am Segmental and somatic dysfunction of tho racic region February 06, 2025 9:53am Segmental dysfunction of lumbar region J [facility] 2024 9:53am Migraines February 06, 2025 9:53 am Abdominal pain February 20, 2025 10:52 am Gastroparesis February 20, 2025 10:52 am IBD (inflammatory bowel disease) February 10:52am Irritable bowel syndrome with diarrhea J [facility] 2024 10:52am Cervical segment dysfunction February 22 025 4:37pm Segmental and somatic dysfunction of tho racic region February 22, 2025 4:37pm Segmental dysfunction of lumbar region J [facility] 2024 4:37pm Migraines February 22, 2025 4:37p [...] of lumbar region S eptember 2024 10:55am Migraines April 30, 2025 10:55am Cervical segment dysfunction April 242024 8:47am Segmental and somatic dysfunction of pel [place] region May 14, 2025 8:47am Segmental and somatic dysfunction of tho racic region May 14, 2025 8:47am Segmental dysfunction of lumbar region S eptember 2024 8:47am Cervical segment dysfunction May 10:34am Segmental and somatic dysfunction of pel [place] region May 30, 2025 10:34am Segmental and somatic dysfunction of tho racic region May 30, 2025 10:34am Segmental dysfunction of lumbar region O ctober 2024 10:34am Additional Source Comments Goals (unrecognized section and [...] team informatio n (unrecognized section and content) Drama Teacher Relationship Specialty Start Date End Date Mark Shabazz [address] [facility] [address] [place] [address] PCP - General 02/03/22 Drama Teacher Relationship Specialty Start Date End Date Mark Shabazz [address] [facility] [address] [place] [address] PCP - General 02/03/22 Drama Teacher Relationship Specialty Start Date End Date Mark Shabazz [address] [facility] [address] [place] [address] PCP - General 02/03/22 Drama Teacher Relationship Specialty Start Date End Date Mark Shabazz [address] [facility] [place] [address] [place] [address] PCP - General 02/03/22 Drama Teacher Relationship Specialty Start Date End Date Mark Shabazz [address] [place] [address] [place] [address] PCP - General 02/03/22 Drama Teacher Relationship Specialty Start Date End Date Mark Shabazz [address] [place] [address] [place] [address] PCP - General 02/03/22 Drama Teacher Relationship Specialty Start Date End Date Mark Shabazz [address] [place] [address] [place] [address] PCP - General 02/03/22 Drama Teacher Relationship Specialty Start Date End Date Mark Shabazz [address] [place] [address] [place] [address] PCP - General 02/03/22 Drama Teacher Relationship Specialty Start Date End Date Mark Shabazz [address] [place] [address] [place] [address] PCP - General 02/03/22 Drama Teacher Relationship Specialty Start Date End Date Mark Shabazz [address] [place] [address] [place] [address] PCP - General 02/03/22 Drama Teacher Relationship Specialty Start Date End Date Mark Shabazz [address] [place] [address] [place] [address] PCP - General 02/03/22 Drama Teacher Relationship Specialty Start Date End Date Mark Shabazz [address] [place] [address] [place] [address] PCP - General 02/03/22 Drama Teacher Relationship Specialty Start Date End Date Mark Shabazz [address] [facility] [address] [place] [address] PCP - General 02/03/22 Drama Teacher Relationship Specialty Start Date End Date Mark Shabazz [address] [facility] [address] [place] [address] PCP - General 02/03/22 Drama Teacher Relationship Specialty Start Date End Date Mark Shabazz [address] [facility] [address] [place] [address] PCP - General 02/03/22 Drama Teacher Relationship Specialty Start Date End Date Mark Shabazz [address] [facility] [address] [place] [address] PCP - General 02/03/22 Drama Teacher Relationship Specialty Start Date End Date Mark Shabazz [address] [facility] [address] [place] [address] PCP - General 02/03/22 Drama Teacher Relationship Specialty Start Date End Date Mark Shabazz [address] [facility] [address] [place] [address] PCP - General 02/03/22 Drama Teacher Relationship Specialty Start Date End Date Mark Shabazz [address] [facility] [address] [place] [address] PCP - General 02/03/22 Drama Teacher Relationship Specialty Start Date End Date Mark Shabazz [address] [facility] [place] [address] [place] [address] PCP - General 02/03/22 Drama Teacher Relationship Specialty Start Date End Date Mark Shabazz [address] [facility] [place] [address] [place] [address] PCP - General 02/03/22 Drama Teacher Relationship Specialty Start Date End Date Mark Shabazz [address] [facility] [place] [address] [place] [address] PCP - General 02/03/22 Drama Teacher Relationship Specialty Start Date End Date Mark Shabazz [address] [facility] [place] [address] [place] [address] PCP - General 02/03/22 Team Status: Active [...] 2024 End: November 01, 2024 Mariana Cortez BUSINESS PROCESS COORDINATOR, BUSINESS PROCESS COORDINATOR-C Attending Provider Active Start: November 01, 2024 End: November 01, 2024 Team Status: Inactive Member Role Status Dates Dr. Mark Shabazz MD Primary Care Provider Acti ve Start: November 01, 2024 End: November 01, 2024 Mariana Cortez BUSINESS PROCESS COORDINATOR, BUSINESS PROCESS COORDINATOR-C Attending Provider Active Start: November 01, 2024 End: November 01, 2024 Mariana Cortez BUSINESS PROCESS COORDINATOR, BUSINESS PROCESS COORDINATOR-C Referring Provider Active Start: November 01, 2024 End: November 01, 2024 Team Status: Inactive Member Role Status Dates Dr. Mark Shabazz MD Primary Care Provider Acti ve Start: November 14, 2024 End: November 14, 2024 Maryjane Alvarado NP-C Attending Provider Active Start: November 14, 2024 [...] November 28, 2024 End: November 28, 2024 Drama Teacher Relationship Specialty Start Date End Date Mark Shabazz [address] [place] [address] [place] [id number] PCP - General 02/03/22 Team Status: Inactive [...] January 29, 2025 End: January 29, 2025 Drama Teacher Relationship Specialty Start Date End Date Mark Shabazz [address] [facility] [address] [place] [id number] PCP - General 02/03/22 Team Status: Active [...] End: November 01, 2024 Mariana Cortez NP, BUSINESS PROCESS COORDINATOR-C Attending Provider Active Start: November 01, 2024 End: November 01, 2024 Team Status: Inactive Member Role/Relationship Status Dates Dr. Mark Shabazz MD Primary Care Provider Acti ve Start: November 01, 2024 End: November 01, 2024 Mariana Cortez BUSINESS PROCESS COORDINATOR, BUSINESS PROCESS COORDINATOR-C Attending Provider Active Start: November 01, 2024 End: November 01, 2024 Mariana Cortez NP, BUSINESS PROCESS COORDINATOR-C Referring Provider Active Start: November 01, 2024 [...] February 21, 2025 End: February 21, 2025 Drama Teacher Relationship Specialty Start Date End Date Mark Shabazz [address] [facility] [address] [place] [address] PCP - General 02/03/22 Team Status: Inactive [...] Inactive Member Role/Relationship Status Dates Dr. Mark Shabzaz MD Primary Care Provider Acti ve Start: [...] Inactive Member Role/Relationship Status Dates Dr. Mark Shabzaz MD Primary Care Provider Acti ve Start: [...] 2025 End: January 29, 2025 Dr. Mark Sahbazz MD Referring Provider Active Start: January 29, [...] Status: Inactive Member Role/Relationship Status Dates Dr. Makr Shabazz MD Primary Care Provider Acti ve [...] Inactive Member Role/Relationship Status Dates Dr. Mark Shaabzz MD Primary Care Provider Acti ve Start: [...] April 16, 2025 End: April 16, 2025 Drama Teacher Relationship Specialty Start Date End Date Mark Shabazz [address] [facility] [address] [place] [address] PCP - General 02/03/22 Team Status: Inactive [...] April 30, 2025 End: April 30, 2025 Team Status: Active Member Role/Relationship Status Dates Dr. Mark Shabazz MD Primary care physician Act licha Team Status: Inactive Member Role/Relationship Status Dates Dr. Mark Shabazz MD Primary care physician Act licha Start: January 23, 2025 End: January 23, 2025 Dr. Mark Shabazz MD Referring Provider Active Start: January 23, 2025 End: January 23, 2025 Dr. Mirna Gunderson DC Attending physician Active Start: January 23, 2025 End: January 23, 2025 Team Status: Inactive Member Role/Relationship Status Dates Dr. Mark Shabazz MD Primary care physician Act licha Start: January 29, 2025 End: January 29, 2025 Dr. Mark Shabazz MD Referring Provider Active Start: January 29, 2025 End: January 29, 2025 Dr. Mirna Gunderson DC Attending physician Active Start: January 29, 2025 End: January 29, 2025 Team Status: Inactive Member Role/Relationship Status Dates Dr. Mark Shabazz MD Primary care physician Act licha Start: February 06, 2025 End: February 06, 2025 Dr. Unruly Toscano DO Attending physician Active Start: February 06, 2025 End: February 06, 2025 Dr. Unruly Toscano DO Referring Provider Active Start: February 06, 2025 End: February 06, 2025 Team Status: Inactive Member Role/Relationship Status Dates Dr. Mark Shabazz MD Primary care physician Act licha Start: February 06, 2025 End: February 06, 2025 Dr. Mark Shabazz MD Referring Provider Active Start: February 06, 2025 End: February 06, 2025 Dr. Mirna Gunderson DC Attending physician Active Start: February 06, 2025 End: February 06, 2025 Team Status: Inactive Member Role/Relationship Status Dates Dr. Mark Shabazz MD Primary care physician Act licha Start: February 20, 2025 End: February 20, 2025 Dr. Mark Shabazz MD Referring Provider Active Start: February 20, 2025 End: February 20, 2025 Dr. Unruly Toscano DO Attending physician Active Start: February 20, 2025 End: February 20, 2025 Team Status: Inactive Member Role/Relationship Status Dates Dr. Mark Shabazz MD Primary care physician Act licha Start: February 21, 2025 End: February 21, 2025 Dr. Unruly Toscano DO Attending physician Active Start: February 21, 2025 End: February 21, 2025 Dr. Unruly Toscano DO Referring Provider Active Start: February 21, 2025 End: February 21, 2025 Dr. Mirna Gunderson DC Nurse Practitioner Active S tart: February 21, 2025 End: February 21, 2025 Team Status: Inactive Member Role/Relationship Status Dates Dr. Mark Shabazz MD Primary care physician Act licha Start: February 22, 2025 End: February 22, 2025 Dr. Mark Shabazz MD Referring Provider Active Start: February 22, 2025 End: February 22, 2025 Dr. Mirna Gunderson DC Attending physician Active Start: February 22, 2025 End: February 22, 2025 Team Status: Inactive Member Role/Relationship Status Dates Dr. Mark Shabazz MD Primary care physician Act licha Start: March 15, 2025 End: March 15, 2025 Dr. Mirna Gunderson DC Attending physician Active Start: March 15, 2025 End: March 15, 2025 Dr. Mirna Gunderson DC Referring Provider Active S tart: March 15, 2025 End: March 15, 2025 Team Status: Inactive Member Role/Relationship Status Dates Dr. Mark Shabazz MD Primary care physician Act licha Start: March 22, 2025 End: March 22, 2025 Dr. Mirna Gunderson DC Attending physician Active Start: March 22, 2025 End: March 22, 2025 Dr. Mirna Gunderson DC Referring Provider Active S tart: March 22, 2025 End: March 22, 2025 Team Status: Inactive Member Role/Relationship Status Dates Dr. Mark Shabazz MD Primary care physician Act licha Start: March 29, 2025 End: March 29, 2025 Dr. Mirna Gunderson DC Attending physician Active Start: March 29, 2025 End: March 29, 2025 Dr. Mirna Gunderson DC Referring Provider Active S tart: March 29, 2025 End: March 29, 2025 Team Status: Inactive Member Role/Relationship Status Dates Dr. Mark Shabazz MD Primary care physician Act licha Start: April 03, 2025 End: April 03, 2025 Dr. Mirna Gunderson DC Attending physician Active Start: April 03, 2025 End: April 03, 2025 Dr. Mirna Gunderson DC Referring Provider Active S tart: April 03, 2025 End: April 03, 2025 Team Status: Inactive Member Role/Relationship Status Dates Dr. Mark Shabazz MD Primary care physician Act licha Start: April 16, 2025 End: April 16, 2025 Dr. Mark Shabazz MD Referring Provider Active Start: April 16, 2025 End: April 16, 2025 Dr. Mirna Gunderson DC Attending physician Active Start: April 16, 2025 End: April 16, 2025 Team Status: Inactive Member Role/Relationship Status Dates Dr. Mark Shabazz MD Primary care physician Act licha Start: April 24, 2025 End: April 24, 2025 Dr. Mark Shabazz MD Referring Provider Active Start: April 24, 2025 End: April 24, 2025 Dr. Mirna Gunderson DC Attending physician Active Start: April 24, 2025 End: April 24, 2025 Team Status: Inactive Member Role/Relationship Status Dates Dr. Mark Shabazz MD Primary care physician Act licha Start: April 30, 2025 End: April 30, 2025 Dr. Mark Shabazz MD Referring Provider Active Start: April 30, 2025 End: April 30, 2025 Dr. Mirna Gunderson DC Attending physician Active Start: April 30, 2025 End: April 30, 2025 Team Status: Inactive Member Role/Relationship Status Dates Dr. Mark Shabazz MD Primary care physician Act licha Start: May 04, 2025 End: May 04, 2025 Dr. Mark Shabazz MD Attending physician Active Start: May 04, 2025 End: May 04, 2025 Dr. Mark Shabazz MD Referring Provider Active Start: May 04, 2025 End: May 04, 2025 Team Status: Active Member Role/Relationship Status Dates Dr. Mark Shabazz MD Primary care physician Act licha Start: May 04, 2025 Health Risk Assessment Attending physician Active Start: May 04, 2025 Health Risk Assessment Referring Provider Active Start: May 04, 2025 Team Status: Inactive Member Role/Relationship Status Dates Dr. Mark Shabazz MD Primary care physician Act licha Start: May 14, 2025 End: May 14, 2025 Dr. Mark Shabazz MD Referring Provider Active Start: May 14, 2025 End: May 14, 2025 Dr. Mirna Gunderson DC Attending physician Active Start: May 14, 2025 End: May 14, 2025 Drama Teacher Relationship Specialty Start Date End Date Mark Shabazz [address] [facility] [place] [address] [place] [address] PCP - General 02/03/22 Team Status: Inactive Member Role/Relationship Status Dates Dr. Mark Shabazz MD Primary care physician Act licha Start: February 06, 2025 End: February 06, 2025 Dr. Unruly Toscano DO Attending physician Active Start: February 06, 2025 End: February 06, 2025 Dr. Unruly Toscano DO Referring Provider Active Start: February 06, 2025 End: February 06, 2025 Team Status: Inactive Member Role/Relationship Status Dates Dr. Mark Shabazz MD Primary care physician Act licha Start: February 06, 2025 End: February 06, 2025 Dr. Mark Shabazz MD Referring Provider Active Start: February 06, 2025 End: February 06, 2025 Dr. Mirna Gunderson DC Attending physician Active Start: February 06, 2025 End: February 06, 2025 Team Status: Inactive Member Role/Relationship Status Dates Dr. Mark Shabazz MD Primary care physician Act licha Start: February 20, 2025 End: February 20, 2025 Dr. Mark Shabazz MD Referring Provider Active Start: February 20, 2025 End: February 20, 2025 Dr. Unruly Toscano DO Attending physician Active Start: February 20, 2025 End: February 20, 2025 Team Status: Inactive Member Role/Relationship Status Dates Dr. Mark Shabazz MD Primary care physician Act licha Start: February 21, 2025 End: February 21, 2025 Dr. Unruly Toscano DO Attending physician Active Start: February 21, 2025 End: February 21, 2025 Dr. Unruly Toscano DO Referring Provider Active Start: February 21, 2025 End: February 21, 2025 Dr. Mirna Gunderson DC Nurse Practitioner Active S tart: February 21, 2025 End: February 21, 2025 Team Status: Inactive Member Role/Relationship Status Dates Dr. Mark Shabazz MD Primary care physician Act licha Start: February 22, 2025 End: February 22, 2025 Dr. Mark Shabazz MD Referring Provider Active Start: February 22, 2025 End: February 22, 2025 Dr. Mirna Gunderson DC Attending physician Active Start: February 22, 2025 End: February 22, 2025 Team Status: Inactive Member Role/Relationship Status Dates Dr. Mark Shabazz MD Primary care physician Act licha Start: March 15, 2025 End: March 15, 2025 Dr. Mirna Gunderson DC Attending physician Active Start: March 15, 2025 End: March 15, 2025 Dr. Mirna Gunderson DC Referring Provider Active S tart: March 15, 2025 End: March 15, 2025 Team Status: Inactive Member Role/Relationship Status Dates Dr. Mark Shabazz MD Primary care physician Act licha Start: March 22, 2025 End: March 22, 2025 Dr. Mirna Gunderson DC Attending physician Active Start: March 22, 2025 End: March 22, 2025 Dr. Mirna Gunderson DC Referring Provider Active S tart: March 22, 2025 End: March 22, 2025 Team Status: Inactive Member Role/Relationship Status Dates Dr. Mark Shabazz MD Primary care physician Act licha Start: March 29, 2025 End: March 29, 2025 Dr. Mirna Gunderson DC Attending physician Active Start: March 29, 2025 End: March 29, 2025 Dr. Mirna Gunderson DC Referring Provider Active S tart: March 29, 2025 End: March 29, 2025 Team Status: Inactive Member Role/Relationship Status Dates Dr. Mark Shabazz MD Primary care physician Act licha Start: April 03, 2025 End: April 03, 2025 Dr. Mirna Gunderson DC Attending physician Active Start: April 03, 2025 End: April 03, 2025 Dr. Mirna Gunderson DC Referring Provider Active S tart: April 03, 2025 End: April 03, 2025 Team Status: Inactive Member Role/Relationship Status Dates Dr. Mark Shabazz MD Primary care physician Act licha Start: April 16, 2025 End: April 16, 2025 Dr. Mirna Gunderson DC Attending physician Active Start: April 16, 2025 End: April 16, 2025 Dr. Mirna Gunderson DC Referring Provider Active S tart: April 16, 2025 End: April 16, 2025 Team Status: Inactive Member Role/Relationship Status Dates Dr. Mark Shabazz MD Primary care physician Act licha Start: April 24, 2025 End: April 24, 2025 Dr. Mark Shabazz MD Referring Provider Active Start: April 24, 2025 End: April 24, 2025 Dr. Mirna Gunderson DC Attending physician Active Start: April 24, 2025 End: April 24, 2025 Team Status: Inactive Member Role/Relationship Status Dates Dr. Mark Shabazz MD Primary care physician Act licha Start: April 30, 2025 End: April 30, 2025 Dr. Mark Shabazz MD Referring Provider Active Start: April 30, 2025 End: April 30, 2025 Dr. Mirna Gunderson DC Attending physician Active Start: April 30, 2025 End: April 30, 2025 Team Status: Inactive Member Role/Relationship Status Dates Dr. Mark Shabazz MD Primary care physician Act licha Start: May 04, 2025 End: May 04, 2025 Dr. Mark Shabazz MD Attending physician Active Start: May 04, 2025 End: May 04, 2025 Dr. Mark Shabazz MD Referring Provider Active Start: May 04, 2025 End: May 04, 2025 Team Status: Active Member Role/Relationship Status Dates Dr. Mark Shabazz MD Primary care physician Act licha Start: May 04, 2025 Health Risk Assessment Attending physician Active Start: May 04, 2025 Health Risk Assessment Referring Provider Active Start: May 04, 2025 Team Status: Inactive Member Role/Relationship Status Dates Dr. Makr Shabazz MD Primary care physician Act licha Start: May 14, 2025 End: May 14, 2025 Dr. Mark Shabazz MD Referring Provider Active Start: May 14, 2025 End: May 14, 2025 Dr. Mirna Gunderson DC Attending physician Active Start: May 14, 2025 End: May 14, 2025 Team Status: Inactive Member Role/Relationship Status Dates Dr. Mark Shabazz MD Primary care physician Act licha Start: May 30, 2025 End: May 30, 2025 Dr. Mark Shabazz MD Referring Provider Active Start: May 30, 2025 End: May 30, 2025 Dr. Mirna Gunderson , YOHANA Attending physician Active Start: May 30, 2025 End: May 30, 2025 Reason for Visit (unrecogniz ed section and content) Reason Comments Procedure TPIBotox Specialty Diagnoses / Procedures Referred By Contac t Referred To Contact Diagnoses Intractable chronic migraine without aura and without status migrainosus Mariana Acuña, FINISHED [employer] - [facility] [address] [place] [address] Phone: tel: fax: Referral ID Status Reason Start Date Expiration Date V isits Requested Visits Authorized [id number] Pending Review 03/06/2025 03/01/2026 1 1 Reason Comments Procedure Botox, TPI, Migraine Referral ID Status Reason Start Date Expiration Date V isits Requested Visits Authorized [id number] Pending Review 12/12/2024 12/07/2025 1 1 Reason Comments Procedure Botox- Migraines Specialty Diagnoses / Procedures Referred By Contac t Referred To Contact Diagnoses Chronic migraine without aura, intractable, without status migrainosus Mariana Acuña, FINISHED [employer] - [facility] [address] [place] [address] Referral ID Status Reason Start Date Expiration Date V isits Requested Visits Authorized [id number] Pending Review 11/04/2022 05/03/2023 1 1 Reason Comments Procedure Specialty Diagnoses / Procedures Referred By Contac t Referred To Contact Diagnoses Intractable chronic migraine without aura and without status migrainosus Mariana Acuña, FINISHED [employer] - [facility] [address] [place] [address] Referral ID Status Reason Start Date Expiration Date V isits Requested Visits Authorized [id number] Pending Review 02/16/2024 02/10/2025 1 1 Referral ID Status Reason Start Date Expiration Date V isits Requested Visits Authorized [id number] Pending Review 11/23/2023 11/17/2024 1 1 Reason Comments Procedure Botox- TPI - Migrain es Referral ID Status Reason Start Date Expiration Date V isits Requested Visits Authorized [id number] Pending Review 08/17/2023 08/11/2024 1 1 Reason Comments Procedure Botox Referral ID Status Reason Start Date Expiration Date V isits Requested Visits Authorized [id number] Pending Review 05/17/2023 11/13/2023 1 1 Reason Comments Med Refill Reason Comments Procedure Botox- Migraine Referral ID Status Reason Start Date Expiration Date V isits Requested Visits Authorized [id number] Pending Review 02/10/2023 08/09/2023 1 1 Reason [...] Expiration Date V isits Requested Visits Authorized [id number] Pending Review 06/05/2024 05/31/2025 1 1 Reason Onset Date Comments Medication Problem 06/29/2024 Referral ID Status Reason Start Date Expiration Date V isits Requested Visits Authorized [id number] Pending Review 09/19/2024 09/14/2025 1 1 Reason Onset Date Comments Procedure 08/17/2024 Botox Referral ID Status Reason Start Date Expiration Date Visits Re quested Visits Authorized [id number] Closed 09/19/2024 09/14/2025 1 1 Reason Comments Follow-up TPI - Intractable mi graine Reason Comments Procedure Reason Comments Procedure TPI - intractable ch ronic migraine Referral ID Status Reason Start Date Expiration Date V isits Requested Visits Authorized [id number] Pending Review 05/28/2025 05/23/2026 1 1 INFORMATION SOURCE (unrecogn ized section and content) DATE CREATED AUTHOR 02/01/2023 [place] DATE CREATED AUTHOR AUTHOR'S ORGANIZ ATION 02/01/2023 [facility] DATE CREATED AUTHOR AUTHOR'S ORGANIZ ATION 01/18/2024 [facility] ([place] DATE CREATED AUTHOR AUTHOR'S ORGANIZ ATION 05/30/2025 [facility] DATE CREATED AUTHOR AUTHOR'S ORGANIZ ATION 06/29/2025 [facility] FOR RECORDS PERTAINING TO PATIENTS WHO [...] BE BASED ON THE PRIMARY CLINICAL RECORDS. [facility]. provides no warranty or guarantee of the accuracy or completeness of information in this document.
[2025-07-12 22:44] LABS: Hematocrit 38.8 % (37-47); Hemoglobin 12.7 g/dL (12.0-15.0); Immature Granulocytes Count 0.020 X10^3/uL (0.0-0.0); Mean Corp Hgb Conc 32.7 g/dL (32-36); Mean Corpuscular Volume 87.0 fL (81-99); Mean Platelet Vol. 9.1 fl (6.2-12.0); NRBC Flagged by Analyzer 0 % (0-5); Platelet Count 312 K/mm3 (150-450); RBC Distribution Width CV 12.1 % (11.6-14.6); RBC Distribution Width SD 38.8 fl (35.1-43.9); Red Blood Count 4.46 M/mm3 (4.2-5.4); White Blood Count 8.2 K/mm3 (4.4-11.0)
[2025-07-12 23:23] LABS: Anion Gap 9 (5-15); BUN 4 mg/dL (4-19); BUN/Creat Ratio 6.7 RATIO (10-20); Calcium,Total 9.4 mg/dL (7.6-11.0); Carbon Dioxide 26.3 mmol/L (21.0-32.0); Chloride 103 mmol/L (98-108); Estimated Creatinine Clearance 97.29 ml/min (50-250); Glucose 108 mg/dL (70-99); Potassium 3.6 mmol/L (3.3-5.1)
[2025-07-12 23:58] VITALS: BP 115/62; PULSE 79; RESP 16; O2SAT 99
[2025-07-13] MEDS: 0.9% Normal Saline (1000mL) 1,000 ML 1000 ML IV (00:25)
[2025-07-13 01:00] VITALS: BP 124/78; PULSE 75; O2SAT 97
[2025-07-13 01:18] VITALS: BP 124/78; PULSE 75; RESP 16; TEMP 36.2; O2SAT 97
== END 2025-07-13 01:26 | disposition home or self-care (01) ==
PROVIDERS: Emergency Provider Emergency Medicine; PCP Family Medicine; Visit Provider Emergency Medicine
DX: J02.9 Acute pharyngitis, unspecified (principal); R59.0 Localized enlarged lymph nodes
CPT/HCPCS: 70491; 80048; 85025; 96361; 96374; 96375; 99283; Q9967; A4216; J2405

== ENCOUNTER → 2025-08-03 | Outpatient (CLI) | payer OTHER, SELFPAY ==
--- NOTE | 2025-08-03 10:45 | BI_ITS ---
EXAM: SCRN MAMM (CAD)W/MICHA BILAT DATE: 08/03/2025 CLINICAL HISTORY: F, Age 44 y/o , SCREENING TECHNIQUE: Procedure Code: [id number] Modality: MG Procedure: SCRN MAMM (CAD)W/MICHA BILAT COMPARISON: Prior exam(s) were compared FINDINGS: TISSUE DENSITY: The breasts are extremely dense, which lowers the sensitivity of mammography. Bilateral Breast Mammographic Findings: No significant masses, calcifications or other abnormalities are identified. BI/SCRN MAMM (CAD)W/MICHA BILAT IMPRESSION: No mammographic evidence of malignancy. OVERALL FINAL ASSESSMENT BI-RADS 1: NEGATIVE. RECOMMENDATION: Routine annual follow-up in 1 Year Additional Recommendation none A letter with findings and recommendations will be mailed to the patient. Reading Location: [id number]
== END | disposition home or self-care (01) ==
LOC: OPBI 10:43
PROVIDERS: PCP Family Medicine; Referring Provider Nurse Practitioner Family; Visit Provider Nurse Practitioner Family
DX: Z12.31 Encounter for screening mammogram for malignant neoplasm of breast (principal)
CPT/HCPCS: 77063; 77067